=== PATIENT | female | born 1945 | race Caucasian/White ===

== ENCOUNTER → 2016-04-27 | Outpatient (CLI) | payer MEDICARE, BC ==
[~2016-04-27] MED LIST: ALBU17IN2 INH; AMLO25TA PO; ATOR40TA PO; BACT2OIN2 TOP; BENA25TA4 PO; BISO5TAB5 PO; CLIN1CAP5 PO; COMBAER6 INH; CYCL10TA PO; FLON0.054; GLIP10TA13 PO; LANS30CA PO; LEVO25TA5 PO; LOSA50TA20 PO; MELA0.02 PO; META28.35 PO; METF500T PO; MIRA3350 PO; MORP-38 PO; POLY33502 PO; PRAN0.5T3 PO; TYLE325T5 PO; VENL75TA3 PO; VITA1CAP25 PO; XARE20TA PO; ZOLP12.515 PO
[2016-04-27 17:58] LABS: BLOOD UREA NITROGEN 22 MG/DL (7-18); CREATININE FOR GFR 0.89 MG/DL (0.55-1.02); GLOMERULAR FILTRATION RATE > 60.0 (>39)
== END ==
LOC: M LAB 15:56
PROVIDERS: ATTEND Ophthalmology
DX: H53.453 Other localized visual field defect, bilateral (principal); Z79.899 Other long term (current) drug therapy

== ENCOUNTER → 2016-04-27 | Outpatient (REF) | payer MEDICARE, BC | LOC: M LAB REF 20:06 | PROVIDERS: ATTEND Physician Assistant | DX: N39.0 Urinary tract infection, site not specified (principal) ==

== ENCOUNTER → 2016-05-01 | Outpatient (CLI) | payer MEDICARE, BC ==
--- NOTE | 2016-05-01 19:41 | REP ---
MRI BRAIN WITHOUT AND WITH CONTRAST: 05/01/2016: Comparison: 12/10/2008. Technique: Axial T1, T2, FLAIR, gradient echo, diffusion-weighted images and ADC mapping sequences with sagittal T1 sequence and following administration 13 mL as of ProHance, axial and coronal T1 sequences were then repeated. Findings: Ventricles are midline, symmetric, and without abnormal dilatation. There is no displacement. There are a few dilated perivascular spaces in the basal ganglia on both sides, unchanged. I see no intracranial hemorrhage. There are subcortical, periventricular, and a few scattered deep central white matter hyperintense T2 and FLAIR foci bilaterally . In general these have slightly increased in number and a few are 1 mm or so larger compared to the previous study. Largest is in the right temporal lobe near the temporoparietal junction on the left and it is about 4.6 mm. It was not present on the previous study. I do not see a vascular territory infarct nor is there evidence of acute ischemia on the diffusion weighted images and ADC mapping sequences. No intra or extra-axial hemorrhage, edema or mass. Corpus callosum and optic chiasm are unchanged. Pituitary shows a partially empty sella. All of this is stable. There is no cerebellar tonsillar ectopia. The cerebellum is without significant atrophy. The brainstem shows only a couple of punctate hyperintense foci in the right cerebral peduncle, but was otherwise unremarkable. Basal cisterns are intact. Seventh/eighth cranial nerve complexes were unremarkable. Some scattered patchy right mastoid air space opacities. These do not enhance. There is minor mucosal thickening and right maxillary antrum. Middle turbinate show prominent contra bullosa bilaterally right greater than left. Globes and intraorbital contents symmetric and grossly intact. After contrast administration, I see no vascular territory infarct, enhancing mass, vascular lesion, gyriform enhancement, abnormal meningeal enhancement nor any other acute abnormality. IMPRESSION: 1. Some white matter changes suggestive of small-vessel ischemic disease. Clips, a few are larger couple are new compared to the previous study and 2008. 2. No intracranial hemorrhage, acute or chronic and no acute infarct, mass or edema. 3. There is no significant atrophy or ventriculomegaly. Brainstem, posterior fossa and the sinuses were grossly intact except for some minor mucosal thickening on the right maxillary antrum superior medially. 4. Some minor mastoid opacification on the right. Signed by Cullen Hernandez MD 05/01/2016 07:47 P
== END ==
LOC: M RAD 17:41
PROVIDERS: ATTEND Ophthalmology
DX: R90.82 White matter disease, unspecified (principal)
CPT/HCPCS: 70553; A9576

== ENCOUNTER → 2016-06-06 | Outpatient (REF) | payer MEDICARE, BC | LOC: M LAB REF 12:09 | PROVIDERS: ATTEND Physician Assistant Medical | DX: N30.01 Acute cystitis with hematuria (principal) ==

== ENCOUNTER → 2016-07-12 | Outpatient (CLI) | payer MEDICARE, BC ==
[~2016-07-12] VITALS: Ht 162.6 cm; Wt 68.0 kg
[~2016-07-12] MED LIST changes: +CEFT500T3 PO; +LIDOCAINE 2% INJ 100 MG/5 ML SDV (FOR ANES.) As Ordered ONE; +NS 1,000 ML IV SCH; +PERC10TA17 PO; +PROPOFOL 200 MG/20 ML VIAL As Ordered ONE
--- NOTE | 2016-07-12 11:43 | ROOR ---
Patient Name: Flori Marie Procedure Date: 07/12/2016 11:30 AM Date of : 1945 Age: 71 Room: [facility] Gender: Female Note Status: Finalized Procedure: Upper GI endoscopy + Biopsies Indications: Iron deficiency anemia Providers: Eddy Monahan MD Referring MD: Valdez Stephens MD Requesting Provider: Medicines: Monitored Anesthesia Care Complications: No immediate complications. Procedure: Pre-Anesthesia Assessment: - The heart rate, respiratory rate, oxygen saturations, blood pressure, adequacy of pulmonary ventilation, and response to care were monitored throughout the procedure. The Endoscope was introduced through the mouth, and advanced to the second part of duodenum. The upper GI endoscopy was accomplished without difficulty. The patient tolerated the procedure well. Findings: The Z-line was regular and was found 40 cm from the incisors. A small hiatal hernia was present. Diffuse mildly erythematous mucosa without bleeding was found in the stomach. Biopsies were taken with a cold forceps for Helicobacter pylori testing. The exam of the duodenum was otherwise normal. Impression: - Z-line regular, 40 cm from the incisors. - Small hiatal hernia. - Erythematous mucosa in the stomach. Biopsied. - The examination was otherwise normal. Recommendation: - Patient has a contact number available for emergencies. The signs and symptoms of potential delayed complications were discussed with the patient. Return to normal activities tomorrow. Written discharge instructions were provided to the patient. - High fiber diet. - Discharge patient to home. - Continue present medications. - Await pathology results. - Check Portal Online for Path Results.([email or web address]) - Return to referring physician. - The findings and recommendations were discussed with the patient's family. Eddy Monahan MD Eddy Monahan MD 07/12/2016 11:43:07 AM This report has been signed electronically. Number of Addenda: 0 Note Initiated On: 07/12/2016 11:30 AM Estimated Blood Loss: Estimated blood loss: none.
--- NOTE | 2016-07-12 12:11 | ROOR ---
Patient Name: Flori Marie Procedure Date: 07/12/2016 11:31 AM Date of : 1945 Age: 71 Room: [facility] Gender: Female Note Status: Finalized Procedure: Colonoscopy to Cecum + Cold Snare Polypectomy + Hemoclips Indications: High risk colon cancer surveillance: Personal history of colonic polyps, Last colonoscopy: 2012 Providers: Eddy Monahan MD Referring MD: Valdez Stephens MD Requesting Provider: Medicines: Monitored Anesthesia Care Complications: No immediate complications. Procedure: Pre-Anesthesia Assessment: - The heart rate, respiratory rate, oxygen saturations, blood pressure, adequacy of pulmonary ventilation, and response to care were monitored throughout the procedure. The Colonoscope was introduced through the anus and advanced to the cecum, identified by appendiceal orifice and ileocecal valve. The colonoscopy was performed without difficulty. The patient tolerated the procedure well. The quality of the bowel preparation was good. Findings: The perianal and digital rectal examinations were normal. Non-bleeding internal hemorrhoids were found during retroflexion. The hemorrhoids were small and Grade I (internal hemorrhoids that do not prolapse). Multiple small and large-mouthed diverticula were found in the recto-sigmoid colon, sigmoid colon and descending colon. A medium polyp was found at 45 cm proximal to the anus. The polyp was sessile. The polyp was removed with a cold snare. Resection and retrieval were complete. To prevent bleeding after the polypectomy, two hemostatic clips were successfully placed (MR conditional). There was no bleeding at the end of the procedure. A medium polyp was found in the proximal transverse colon. The polyp was sessile. The polyp was removed with a cold snare. Resection and retrieval were complete. To prevent bleeding after the polypectomy, one hemostatic clip was successfully placed (MR conditional). There was no bleeding at the end of the procedure. The exam was otherwise without abnormality on direct and retroflexion views. Impression: - Non-bleeding internal hemorrhoids. - Diverticulosis in the recto-sigmoid colon, in the sigmoid colon and in the descending colon. - One medium polyp at 45 cm proximal to the anus, removed with a cold snare. Resected and retrieved. Clips (MR conditional) were placed. - One medium polyp in the proximal transverse colon, removed with a cold snare. Resected and retrieved. Clip (MR conditional) was placed. - The examination was otherwise normal on direct and retroflexion views. - The exam was otherwise normal to the cecum. Recommendation: - Patient has a contact number available for emergencies. The signs and symptoms of potential delayed complications were discussed with the patient. Return to normal activities tomorrow. Written discharge instructions were provided to the patient. - High fiber diet. - Discharge patient to home. - Resume Xarelto (rivaroxaban) at prior dose today. - Await pathology results. - Repeat colonoscopy in 5 years for surveillance based on pathology results. - Return to referring physician. - The findings and recommendations were discussed with the patient's family. - Check Portal Online for Path Results.([email or web address]) Eddy Monahan MD Eddy Monahan MD 07/12/2016 12:11:06 PM This report has been signed electronically. Number of Addenda: 0 Note Initiated On: 07/12/2016 11:31 AM Estimated Blood Loss: Estimated blood loss: none.
[2016-07-12 12:30] VITALS: BP 131/92
== END | disposition home or self-care (01) ==
LOC: M OPP 10:23
PROVIDERS: ATTEND Internal Medicine Gastroenterology
DX: Z12.11 Encounter for screening for malignant neoplasm of colon (principal); K64.0 First degree hemorrhoids; K57.30 Diverticulosis of large intestine without perforation or abscess without bleeding; D12.5 Benign neoplasm of sigmoid colon; D12.3 Benign neoplasm of transverse colon; D50.9 Iron deficiency anemia, unspecified; K44.9 Diaphragmatic hernia without obstruction or gangrene; I42.9 Cardiomyopathy, unspecified; E11.9 Type 2 diabetes mellitus without complications; I47.1 Supraventricular tachycardia; I77.9 Disorder of arteries and arterioles, unspecified; I44.7 Left bundle-branch block, unspecified; I48.91 Unspecified atrial fibrillation; I10 Essential (primary) hypertension; E78.00 Pure hypercholesterolemia, unspecified; E03.9 Hypothyroidism, unspecified; K21.9 Gastro-esophageal reflux disease without esophagitis; F33.9 Major depressive disorder, recurrent, unspecified; F41.9 Anxiety disorder, unspecified; J44.9 Chronic obstructive pulmonary disease, unspecified; F17.210 Nicotine dependence, cigarettes, uncomplicated; Z79.891 Long term (current) use of opiate analgesic; Z79.899 Other long term (current) drug therapy; Z79.84 Long term (current) use of oral hypoglycemic drugs; Z79.01 Long term (current) use of anticoagulants; Z88.8 Allergy status to other drugs, medicaments and biological substances; Z88.1 Allergy status to other antibiotic agents; Z91.018 Allergy to other foods

== ENCOUNTER 2016-07-27 14:38 | Emergency (ER) | payer MEDICARE, BC ==
[~2016-07-27] VITALS: Ht 162.6 cm; Wt 67.1 kg
[~2016-07-27 14:38] MED LIST changes: -LIDOCAINE 2% INJ 100 MG/5 ML SDV (FOR ANES.) As Ordered ONE; -NS 1,000 ML IV SCH; -PROPOFOL 200 MG/20 ML VIAL As Ordered ONE
[2016-07-27] MEDS ORDERED: REGL5TAB2 PO (15:13)
[2016-07-27] MEDS ORDERED: [UNRECOGNIZED DRUG - CODE] PO (15:13)
[2016-07-27] MEDS ORDERED: ALBU17IN INH (15:13)
[2016-07-27] MEDS ORDERED: LOSA50TA20 PO (15:13)
[2016-07-27] MEDS: NS 1,000 ML IV SCH (15:13)
[2016-07-27] MEDS ORDERED: VITA1TAB27 PO (15:13)
[2016-07-27] MEDS ORDERED: FERR325T3 PO (15:13)
[2016-07-27] MEDS ORDERED: BENT10CA PO (15:56)
[2016-07-27 15:57] LABS: MEAN CORPUSCULAR VOLUME 94.1 fl (80.0-96.0); PLATELET COUNT, AUTOMATED 239 k/mm3 (150-450); RED CELL DISTRIBUTION WIDTH 12.4 % (11.5-14.5); WHITE BLOOD COUNT 22.1 K/mm3 (4.0-10.0)
[2016-07-27 16:01] LABS: ALBUMIN 4.3 GM/DL (3.2-5.2); ALBUMIN/GLOBULIN RATIO 1.19 (1.00-1.93); BILIRUBIN,DIRECT 0.1 MG/DL (0.0-0.2); BILIRUBIN,TOTAL 0.4 MG/DL (0.2-1.0); CALCIUM LEVEL 9.2 MG/DL (8.8-10.2); CREATININE FOR GFR 1.19 MG/DL (0.55-1.02); GLOMERULAR FILTRATION RATE 47.7 (>39); POTASSIUM SERUM 4.1 MEQ/L (3.5-5.1); TOTAL PROTEIN 7.9 GM/DL (6.4-8.2)
[2016-07-27] MEDS: ONDANSETRON 4MG/2ML VIAL (J2405) IV ONE (16:06)
[2016-07-27] MEDS: MORPHINE 4 MG/ML 1ML SYRINGE IV PRN (16:07)
[2016-07-27] MEDS ORDERED: ISOVUE-370 76% 100ML VIAL (Q9967) As Ordered ONE (16:17)
[2016-07-27 16:20] LABS: PLATELET CLUMPS SMALL AMT
[2016-07-27 17:12] VITALS: BP 143/60
[2016-07-27] MEDS ORDERED: MORP-38 PO ×2 (17:21)
[2016-07-27] MEDS ORDERED: FLON1SPR (17:21)
[2016-07-27] MEDS ORDERED: VENL75CA PO (17:21)
[2016-07-27] MEDS ORDERED: LEVO50TA45 PO (17:21)
[2016-07-27] MEDS ORDERED: REPA1TAB PO (17:21)
[2016-07-27] MEDS ORDERED: IPRASOL4 INH (17:21)
[2016-07-27] MEDS ORDERED: FIBEPOW PO (17:21)
[2016-07-27] MEDS: cefTRIAXone SOD 2 GM in D5W MINI-BAG PLUS 50 ML IV ONE (17:36)
--- NOTE | 2016-07-27 21:58 | REP ---
ABDOMEN: HISTORY: Abdominal pain. COMPARISON: Chest 05/13/2015 FINDINGS: Supine and upright views of the abdomen show the intestinal gas pattern to be nonspecific. Gas and stool is seen throughout the colon within the rectosigmoid region. The organ silhouettes insofar as delineated appear unremarkable. No abdominal calcific densities are seen within the abdomen or pelvis. The accompanying single frontal view of the chest shows no free subdiaphragmatic air, cardiomegaly, infiltrates or effusions. IMPRESSION: Nonspecific intestinal gas pattern. Signed by Rolando Ruiz DO 07/28/2016 11:20 A
--- NOTE | 2016-07-27 23:23 | REP ---
CT ABDOMEN: HISTORY: Left lower quadrant pain, assess for diverticulitis. COMPARISON: 03/10/2015 CONTRAST: 100 mL [id number] There is no significant change in the appearance of the lung bases. There are no pleural or pericardial effusions. The patient is status post cholecystectomy. The liver, spleen, pancreas, adrenal glands and kidneys are unchanged, remaining within normal limits. The abdominal aorta and periaortic regions are unchanged, remaining within normal limits. The bowel loops and their mesenteries are within normal limits. The colon is content filled. There is no free fluid or free air in the abdomen. CT pelvis: The bowel loops and their mesenteries are within normal limits. There is sigmoid colon diverticulosis. There are a few scattered diverticula in the descending colon, all status quo. There is no free pelvic fluid or air. There is no pelvic mass or adenopathy. Bone window technique throughout the exam shows chronic spinal degenerative changes, status quo. Degenerative sacroiliac joint changes are also noted, status quo. IMPRESSION: No evidence of acute intraabdominal or intrapelvic disease and no significant change from the prior exam with findings as described above. Signed by Rolando Ruiz DO 07/28/2016 11:20 A
== END 2016-07-27 18:24 | disposition home or self-care (01) ==
LOC: EDBD 14:38 → M ED 16:54
DX: D72.829 Elevated white blood cell count, unspecified (principal); R11.10 Vomiting, unspecified; R07.9 Chest pain, unspecified; E11.9 Type 2 diabetes mellitus without complications; I10 Essential (primary) hypertension; K58.9 Irritable bowel syndrome, unspecified; K21.9 Gastro-esophageal reflux disease without esophagitis; I48.91 Unspecified atrial fibrillation; K31.84 Gastroparesis; Z79.899 Other long term (current) drug therapy; Z79.01 Long term (current) use of anticoagulants; F17.200 Nicotine dependence, unspecified, uncomplicated; Z88.8 Allergy status to other drugs, medicaments and biological substances; Z88.1 Allergy status to other antibiotic agents; Z88.3 Allergy status to other anti-infective agents; Z91.09 Other allergy status, other than to drugs and biological substances; Z79.891 Long term (current) use of opiate analgesic
CPT/HCPCS: 74022; 74177; 80048; 80076; 81001; 83605; 83690; 85025; 87040; 87088; 87186; 93041; 96374; 96375; 99284; J0696; J2405; Q9967

== ENCOUNTER 2016-07-28 06:20 | Emergency (ER) | payer MEDICARE, BC ==
[~2016-07-28] VITALS: Ht 162.6 cm; Wt 67.1 kg
[~2016-07-28 06:20] MED LIST changes: +ALBU17IN INH; +BENT10CA PO; +FERR325T3 PO; +FIBEPOW PO; +FLON1SPR; +IPRASOL4 INH; +LEVO50TA45 PO; +REGL5TAB2 PO; +REPA1TAB PO; +VENL75CA PO; +VITA1TAB27 PO; +[UNRECOGNIZED DRUG - CODE] PO
[2016-07-28] MEDS: NS 1,000 ML IV ONE (07:30)
[2016-07-28 07:46] LABS: BASO % 0.3 % (0.0-1.0); EOS # 0.2 K/mm3 (0.0-0.50); EOS % 1.7 % (0.0-3.0); LARGE UNSTAINED CELL # 0.1 K/mm3 (0.0-0.4); LARGE UNSTAINED CELL % 0.9 % (0.0-4.0); LYMPH # 1.7 K/mm3 (1.5-4.5); LYMPH % 15.1 % (24.0-44.0); MEAN CORPUSCULAR HEMOGLOBIN 31.8 pg (27.0-33.0); MEAN CORPUSCULAR HGB CONC 33.7 g/dl (32.0-36.5); MEAN CORPUSCULAR VOLUME 94.5 fl (80.0-96.0); MONO # 0.9 K/mm3 (0.0-0.8); MONO % 7.8 % (0.0-5.0); NEUTROPHILS # 8.4 K/mm3 (1.8-7.7); NEUTROPHILS % 74.2 % (36.0-66.0); PLATELET COUNT, AUTOMATED 218 k/mm3 (150-450); RED CELL DISTRIBUTION WIDTH 12.4 % (11.5-14.5); WHITE BLOOD COUNT 11.3 K/mm3 (4.0-10.0)
[2016-07-28 08:04] LABS: ALBUMIN 3.1 GM/DL (3.2-5.2); ALBUMIN/GLOBULIN RATIO 0.86 (1.00-1.93); BILIRUBIN,DIRECT 0.1 MG/DL (0.0-0.2); BILIRUBIN,TOTAL 0.4 MG/DL (0.2-1.0); CALCIUM LEVEL 7.9 MG/DL (8.8-10.2); CREATININE FOR GFR 1.03 MG/DL (0.55-1.02); GLOMERULAR FILTRATION RATE 56.4 (>39); TOTAL PROTEIN 6.7 GM/DL (6.4-8.2)
[2016-07-28 08:46] VITALS: BP 159/59
== END 2016-07-28 08:47 | disposition home or self-care (01) ==
LOC: M ED 07:46
DX: E86.0 Dehydration (principal); R10.12 Left upper quadrant pain; R11.0 Nausea; I10 Essential (primary) hypertension; E11.9 Type 2 diabetes mellitus without complications; K21.9 Gastro-esophageal reflux disease without esophagitis; K57.92 Diverticulitis of intestine, part unspecified, without perforation or abscess without bleeding; E07.9 Disorder of thyroid, unspecified; M54.5 Low back pain; K31.84 Gastroparesis; I48.91 Unspecified atrial fibrillation; I44.7 Left bundle-branch block, unspecified; K44.9 Diaphragmatic hernia without obstruction or gangrene; F17.210 Nicotine dependence, cigarettes, uncomplicated; Z79.899 Other long term (current) drug therapy; Z79.01 Long term (current) use of anticoagulants; Z79.891 Long term (current) use of opiate analgesic; Z79.84 Long term (current) use of oral hypoglycemic drugs; Z88.8 Allergy status to other drugs, medicaments and biological substances; Z88.1 Allergy status to other antibiotic agents; Z88.3 Allergy status to other anti-infective agents; Z91.09 Other allergy status, other than to drugs and biological substances

== ENCOUNTER → 2016-08-15 | Outpatient (REF) | payer MEDICARE, BC | LOC: M SMT 16:59 | PROVIDERS: ATTEND Nurse Practitioner Family | DX: N39.0 Urinary tract infection, site not specified (principal) | CPT/HCPCS: 51798; 81001; 87086; G0463 ==

== ENCOUNTER → 2016-08-24 | Outpatient (CLI) | payer MEDICARE, BC ==
--- NOTE | 2016-08-24 13:39 | REP ---
Clinical: Shortness of breath . Comparison: 07/27/2016 . Technique: PA and lateral. Findings: The mediastinum and cardiac silhouette are normal. The lung montgomery are clear and without acute consolidation, effusion, or pneumothorax. The skeletal structures are intact and normal. Impression: 1. No acute cardiopulmonary process. Signed by Jovon Sanchez MD 08/24/2016 01:31 P
== END ==
LOC: M SMT 13:03
PROVIDERS: ATTEND Internal Medicine Pulmonary Disease
DX: R06.02 Shortness of breath (principal)

== ENCOUNTER → 2016-09-12 | Outpatient (CLI) | payer MEDICARE, BC ==
--- NOTE | 2016-09-12 16:00 | REP ---
PELVIC ULTRASOUND: Real-time sonographic evaluation of the pelvis was performed utilizing transabdominal and endovaginal technique. The bladder measures 3.8 x 3.9 x 6.4 cm. The patient has had a prior hysterectomy. The ovaries are not visualized. No adnexal mass is seen. No free fluid is seen. IMPRESSION: Essentially negative pelvic ultrasound. Status post hysterectomy. The ovaries could not be identified. I see no mass or free fluid.
== END ==
LOC: M WHC 12:56
PROVIDERS: ATTEND Nurse Practitioner Women's Health
DX: R14.0 Abdominal distension (gaseous) (principal)

== ENCOUNTER → 2017-03-20 | Outpatient (CLI) | payer MEDICARE, BC ==
[~2017-03-20] MED LIST changes: -ATOR40TA PO; +ATOR40TA75 PO; +BACT2OIN10 TOP; -BACT2OIN2 TOP; +CLIN150C14 PO; -CLIN1CAP5 PO; -GLIP10TA13 PO; +GLIP1TAB51 PO; -MELA0.02 PO; +MELA3TAB49 PO; -METF500T PO; +METF500T13 PO; -PERC10TA17 PO; +PERC10TA26 PO; -VENL75CA PO; +VENL75CA2 PO
--- NOTE | 2017-03-21 17:07 | REP ---
CHEST PA AND LATERAL: 03/20/2017: Clinical history: COPD with exacerbation. Comparison: 08/24/2016, PA chest 07/27/2016, 05/13/2015. Findings. Lungs are well inflated. There is underlying interstitial fibrosis diffusely. Heavier markings in the bases may reflect some superimposed patchy atelectasis or infiltrate on the fibrosis. There is no dense consolidation with air bronchograms. There is no pleural effusion. I see no vascular redistribution or pulmonary edema. The heart is mildly enlarged with left atrial and ventricular enlargement. Pulmonary arteries are prominent centrally consistent with pulmonary artery hypertension. Vascular calcifications at the aortic arch without aneurysm. Airway midline. Bony thorax shows demineralization without acute compression deformity. Impression: 1. COPD and fibrotic changes with heavier basilar fibrosis and superimposed patchy atelectasis or infiltrates suggested. No effusion, dense consolidation with air bronchograms or parenchymal mass/nodule evident. 2. Mild cardiomegaly with left atrial ventricular enlargement. No pulmonary edema or effusion. 3. Calcified aortic arch without aneurysm. Signed by Cullen Hernandez MD 03/21/2017 05:28 P
== END ==
LOC: M ADAMS 18:37
PROVIDERS: ATTEND Physician Assistant Medical
DX: J44.1 Chronic obstructive pulmonary disease with (acute) exacerbation (principal); I51.7 Cardiomegaly

== ENCOUNTER 2017-08-16 15:25 | Emergency (ER) | payer MEDICARE, BC ==
[2017-08-16] MEDS: PERCOCET 5MG/325MG TAB PO (17:56)
== END 2017-08-16 18:02 | disposition home or self-care (01) ==
LOC: M ED 15:25
DX: S29.011A Strain of muscle and tendon of front wall of thorax, initial encounter (principal); X50.9XXA Other and unspecified overexertion or strenuous movements or postures, initial encounter; Y92.410 Unspecified street and highway as the place of occurrence of the external cause; I10 Essential (primary) hypertension; J44.1 Chronic obstructive pulmonary disease with (acute) exacerbation; E03.9 Hypothyroidism, unspecified; K21.9 Gastro-esophageal reflux disease without esophagitis; I48.91 Unspecified atrial fibrillation; E78.00 Pure hypercholesterolemia, unspecified; F17.210 Nicotine dependence, cigarettes, uncomplicated
CPT/HCPCS: 71100

== ENCOUNTER → 2017-08-16 | Outpatient (CLI) | payer MEDICARE, BC | LOC: M ADAMS 13:41 | DX: I51.7 Cardiomegaly (principal); J44.1 Chronic obstructive pulmonary disease with (acute) exacerbation; J98.4 Other disorders of lung; R07.1 Chest pain on breathing ==

== ENCOUNTER 2017-09-02 12:21 | Emergency (ER) | payer MEDICARE, BC ==
[2017-09-02 13:10] LABS: BASO # 0.1 10^3/uL (0.0-0.2); BASO % 1.1 % (0.0-1.0); EOS # 0.1 10^3/uL (0.0-0.50); EOS % 1.7 % (0.0-3.0); HEMATOCRIT 45.6 % (36.0-47.0); HEMOGLOBIN 15.1 g/dl (12.0-15.5); IMMATURE GRANULOCYTE % 0.2 % (0-3.0); LYMPH % 24.2 % (24.0-44.0); MEAN CORPUSCULAR HEMOGLOBIN 30.2 pg (27.0-33.0); MEAN CORPUSCULAR HGB CONC 33.1 g/dl (32.0-36.5); MEAN CORPUSCULAR VOLUME 91.2 fl (80.0-96.0); MONO # 0.8 10^3/uL (0.0-0.8); MONO % 9.9 % (0.0-5.0); NEUTROPHILS # 5.2 10^3/uL (1.8-7.7); NEUTROPHILS % 62.9 % (36.0-66.0); PLATELET COUNT, AUTOMATED 201 10^3/uL (150-450); RED CELL DISTRIBUTION WIDTH 13.2 % (11.5-14.5); WHITE BLOOD COUNT 8.3 10^3/uL (4.0-10.0)
[2017-09-02 13:14] LABS: PROTHROMBIN TIME 14.4 SECONDS (12.4-14.5)
[2017-09-02 13:15] LABS: PARTIAL THROMBOPLASTIN TIME 28.3 SECONDS (26.8-37.9)
[2017-09-02 13:23] LABS: ANION GAP 5 MEQ/L (8-16); BLOOD UREA NITROGEN 20 MG/DL (7-18); CALCIUM LEVEL 8.5 MG/DL (8.8-10.2); CARBON DIOXIDE LEVEL 31 MEQ/L (21-32); CHLORIDE LEVEL 101 MEQ/L (98-107); CK-MB VALUE MASS 2.1 NG/ML (<3.6); CPK CREATINE PHOSPHOKINASE 46 U/L (26-192); CREATININE FOR GFR 0.91 MG/DL (0.55-1.30); GLOMERULAR FILTRATION RATE > 60.0 (>39); GLUCOSE, FASTING 146 MG/DL (70-100); MB/CK RELATIVE INDEX 4.56 (< OR =4); POTASSIUM SERUM 4.3 MEQ/L (3.5-5.1); SODIUM LEVEL 137 MEQ/L (136-145); TROPONIN I < 0.02 NG/ML (< 0.10)
[2017-09-02] MEDS ORDERED: ISOVUE-370 76% 100ML VIAL (Q9967) As Ordered (13:24)
[2017-09-02] MEDS: MORPHINE 4 MG/ML 1ML VIAL/SYRINGE (J2270) IV (13:30)
== END 2017-09-02 15:46 | disposition home or self-care (01) ==
LOC: M ED 12:21
DX: R07.89 Other chest pain (principal); I44.0 Atrioventricular block, first degree; I44.7 Left bundle-branch block, unspecified; J44.1 Chronic obstructive pulmonary disease with (acute) exacerbation; I48.91 Unspecified atrial fibrillation; E11.9 Type 2 diabetes mellitus without complications; I11.0 Hypertensive heart disease with heart failure; E78.5 Hyperlipidemia, unspecified; K21.9 Gastro-esophageal reflux disease without esophagitis; M79.7 Fibromyalgia; M19.90 Unspecified osteoarthritis, unspecified site; Z87.19 Personal history of other diseases of the digestive system; N64.9 Disorder of breast, unspecified; F17.200 Nicotine dependence, unspecified, uncomplicated; Z98.890 Other specified postprocedural states; Z88.8 Allergy status to other drugs, medicaments and biological substances; Z88.5 Allergy status to narcotic agent; Z88.3 Allergy status to other anti-infective agents; Z91.018 Allergy to other foods; Z79.899 Other long term (current) drug therapy; Z79.890 Hormone replacement therapy
CPT/HCPCS: J2270

== ENCOUNTER → 2017-09-02 | Outpatient (CLI) | payer MEDICARE, BC | LOC: M ADAMS 10:31 | DX: R07.9 Chest pain, unspecified (principal); J44.1 Chronic obstructive pulmonary disease with (acute) exacerbation ==

== ENCOUNTER → 2017-10-27 | Outpatient (CLI) | payer MEDICARE, BC ==
[2017-10-27 13:02] LABS: BASO # 0.1 10^3/uL (0.0-0.2); BASO % 0.6 % (0.0-1.0); EOS # 0.2 10^3/uL (0.0-0.50); EOS % 1.7 % (0.0-3.0); HEMATOCRIT 42.3 % (36.0-47.0); IMMATURE GRANULOCYTE % 0.2 % (0-3.0); LYMPH # 1.8 10^3/uL (1.5-4.5); LYMPH % 20.5 % (24.0-44.0); MEAN CORPUSCULAR HEMOGLOBIN 31.5 pg (27.0-33.0); MEAN CORPUSCULAR HGB CONC 33.1 g/dl (32.0-36.5); MEAN CORPUSCULAR VOLUME 95.3 fl (80.0-96.0); MONO # 0.9 10^3/uL (0.0-0.8); MONO % 10.1 % (0.0-5.0); NEUTROPHILS # 5.8 10^3/uL (1.8-7.7); NEUTROPHILS % 66.9 % (36.0-66.0); PLATELET COUNT, AUTOMATED 196 10^3/uL (150-450); RED BLOOD COUNT 4.44 10^6/uL (4.00-5.40); RED CELL DISTRIBUTION WIDTH 12.9 % (11.5-14.5); WHITE BLOOD COUNT 8.7 10^3/uL (4.0-10.0)
[2017-10-27 13:14] LABS: ALBUMIN 3.3 GM/DL (3.2-5.2); ALKALINE PHOSPHATASE 102 U/L (45-117); ALT/SGPT 29 U/L (12-78); AMYLASE 23 U/L (25-115); ANION GAP 6 MEQ/L (8-16); AST/SGOT 10 U/L (7-37); BILIRUBIN,TOTAL 0.3 MG/DL (0.2-1.0); BLOOD UREA NITROGEN 18 MG/DL (7-18); CARBON DIOXIDE LEVEL 32 MEQ/L (21-32); CHLORIDE LEVEL 104 MEQ/L (98-107); CREATININE FOR GFR 0.83 MG/DL (0.55-1.30); GLOMERULAR FILTRATION RATE > 60.0 (>39); GLUCOSE, FASTING 132 MG/DL (70-100); LIPASE 123 U/L (73-393); SODIUM LEVEL 142 MEQ/L (136-145); TOTAL PROTEIN 6.6 GM/DL (6.4-8.2)
[2017-10-27 13:15] LABS: POTASSIUM SERUM 5.2 MEQ/L (3.5-5.1)
== END ==
LOC: M ADAMS 11:04
DX: R10.30 Lower abdominal pain, unspecified (principal)
CPT/HCPCS: 82150

== ENCOUNTER 2018-01-25 09:15 | Emergency (ER) | payer MEDICARE, BC ==
[2018-01-25 09:59] LABS: BASO # 0.1 10^3/uL (0.0-0.2); BASO % 0.6 % (0.0-1.0); EOS # 0.2 10^3/uL (0.0-0.50); EOS % 2.1 % (0.0-3.0); HEMATOCRIT 44.9 % (36.0-47.0); HEMOGLOBIN 15.3 g/dl (12.0-15.5); IMMATURE GRANULOCYTE % 0.2 % (0-3.0); LYMPH # 1.5 10^3/uL (1.5-4.5); LYMPH % 18.2 % (24.0-44.0); MEAN CORPUSCULAR HEMOGLOBIN 30.7 pg (27.0-33.0); MEAN CORPUSCULAR HGB CONC 34.1 g/dl (32.0-36.5); MEAN CORPUSCULAR VOLUME 90.2 fl (80.0-96.0); MONO # 0.8 10^3/uL (0.0-0.8); MONO % 9.6 % (0.0-5.0); NEUTROPHILS # 5.6 10^3/uL (1.8-7.7); NEUTROPHILS % 69.3 % (36.0-66.0); PLATELET COUNT, AUTOMATED 188 10^3/uL (150-450); RED BLOOD COUNT 4.98 10^6/uL (4.00-5.40); RED CELL DISTRIBUTION WIDTH 12.3 % (11.5-14.5); WHITE BLOOD COUNT 8.1 10^3/uL (4.0-10.0)
[2018-01-25] MEDS: ALPRAZolam 0.25 MG TAB PO (10:21)
[2018-01-25] MEDS: LOSARTAN 50 MG TAB PO (10:45)
[2018-01-25 11:08] LABS: ANION GAP 7 MEQ/L (8-16); BLOOD UREA NITROGEN 16 MG/DL (7-18); CARBON DIOXIDE LEVEL 30 MEQ/L (21-32); CHLORIDE LEVEL 100 MEQ/L (98-107); CPK CREATINE PHOSPHOKINASE 47 U/L (26-192); CREATININE FOR GFR 0.92 MG/DL (0.55-1.30); FREE T4 1.22 NG/DL (0.76-1.46); GLOMERULAR FILTRATION RATE > 60.0 (>39); GLUCOSE, FASTING 200 MG/DL (70-100); MAGNESIUM LEVEL 1.6 MG/DL (1.8-2.4); MB/CK RELATIVE INDEX 3.83 (< OR =4); POTASSIUM SERUM 4.2 MEQ/L (3.5-5.1); SODIUM LEVEL 137 MEQ/L (136-145); TROPONIN I < 0.02 NG/ML (< 0.10)
[2018-01-25] MEDS: MAG SULF 1GM/100ML (MAG RUN) 1 GM in APPROPRIATE DILUENT 1 EA IV (11:45)
== END 2018-01-25 14:13 | disposition home or self-care (01) ==
LOC: M ED 09:15
DX: E83.42 Hypomagnesemia (principal); E11.9 Type 2 diabetes mellitus without complications; I10 Essential (primary) hypertension; J44.9 Chronic obstructive pulmonary disease, unspecified; I34.0 Nonrheumatic mitral (valve) insufficiency; I36.1 Nonrheumatic tricuspid (valve) insufficiency; F17.200 Nicotine dependence, unspecified, uncomplicated; Z88.8 Allergy status to other drugs, medicaments and biological substances; Z88.1 Allergy status to other antibiotic agents; Z91.048 Other nonmedicinal substance allergy status; Z79.899 Other long term (current) drug therapy; Z79.01 Long term (current) use of anticoagulants; Z79.84 Long term (current) use of oral hypoglycemic drugs
CPT/HCPCS: J3475

== ENCOUNTER → 2018-01-30 | Outpatient (CLI) | payer MEDICARE, BC ==
[~2018-01-30] MED LIST changes: -ALBU17IN INH; -ALBU17IN2 INH; -AMLO25TA PO; -ATOR40TA75 PO; -BACT2OIN10 TOP; -BENA25TA4 PO; -BENT10CA PO; -BISO5TAB5 PO; -CEFT500T3 PO; -CLIN150C14 PO; -COMBAER6 INH; -CYCL10TA PO; -FERR325T3 PO; -FIBEPOW PO; -FLON0.054; -FLON1SPR; -GLIP1TAB51 PO; +GLUCAGON FOR INJ 1 MG VIAL (J1610) As Ordered; -IPRASOL4 INH; +ISOVUE-370 76% 100ML VIAL (Q9967) As Ordered; -LANS30CA PO; -LEVO25TA5 PO; -LEVO50TA45 PO; -LOSA50TA20 PO; -MELA3TAB49 PO; -META28.35 PO; -METF500T13 PO; -MIRA3350 PO; -MORP-38 PO; -PERC10TA26 PO; -POLY33502 PO; -PRAN0.5T3 PO; -REGL5TAB2 PO; -REPA1TAB PO; -TYLE325T5 PO; -VENL75CA2 PO; -VENL75TA3 PO; -VITA1CAP25 PO; -VITA1TAB27 PO; +VoLumen 0.1% SUSPENSION 450ML BOTTLE As Ordered; -XARE20TA PO; -ZOLP12.515 PO; -[UNRECOGNIZED DRUG - CODE] PO
== END ==
LOC: M RAD 11:27
DX: K63.89 Other specified diseases of intestine (principal)
CPT/HCPCS: Q9967

== ENCOUNTER → 2018-07-09 | Outpatient (REF) | payer MEDICARE, BC ==
[~2018-07-09] MED LIST changes: +ALBU17IN INH; +ALBU17IN2 INH; +AMLO25TA PO; +ATOR40TA75 PO; +AVEL1TAB3 PO; +BACT2OIN10 TOP; +BENA25TA4 PO; +BENEPOW7 PO; +BENT10CA PO; +BISO5TAB5 PO; +CEFT500T3 PO; +CLIN150C14 PO; +COMBAER6 INH; +CYCL10TA PO; +FERR325T3 PO; +FIBEPOW PO; +FLOM0.4C39; +FLON0.054; +FLON1SPR; +GLIP10TA18 PO; -GLUCAGON FOR INJ 1 MG VIAL (J1610) As Ordered; +IPRA0.00 INH; -ISOVUE-370 76% 100ML VIAL (Q9967) As Ordered; +LANS30CA PO; +LEVO25TA5 PO; +LEVO50TA45 PO; +LOSA50TA88 PO; +LOSARTAN/HCT PO; +MELA3TAB49 PO; +META28.35 PO; +METF500T13 PO; +METO10TA2 PO; +MIRA3350 PO; +MORP-38 PO; +NICO21PAT TD; +OXYC1TAB23 PO; +PERC10TA26 PO; +PERC5TAB12 PO; +POLY1POW38 PO; +PRAN0.5T3 PO; +RAPA8CAP4; +REGL5TAB2 PO; +REPA1TAB PO; +TYLE325T5 PO; +VENL-65 PO; +VENL75CA2 PO; +VENTAER INH; +VITA1CAP25 PO; +VITA1TAB27 PO; -VoLumen 0.1% SUSPENSION 450ML BOTTLE As Ordered; +XARE20TA PO; +ZOLP12.515 PO; +[UNRECOGNIZED DRUG - CODE] PO
== END ==
LOC: M LAB REF 12:52
PROVIDERS: ATTEND Physician Assistant Medical
DX: R10.30 Lower abdominal pain, unspecified (principal)

== ENCOUNTER 2019-03-19 18:35 | Inpatient (IN) | payer MEDICARE, BC ==
[~2019-03-19] VITALS: Ht 162.6 cm; Wt 60.1 kg
[~2019-03-19 18:35] MED LIST changes: -BISO5TAB5 PO; +BISO5TAB9 PO; -MORP-38 PO; +MORP-69 PO; -REPA1TAB PO; +REPA1TAB3 PO
[2019-03-19 19:12] LABS: VENOUS HCO3 27.8 MEQ/L (23.0-27.0); VENOUS O2 SATURATION 58.1 % (60.0-80.0); VENOUS PARTIAL PRESSURE O2 30.7 mmHg (30.0-50.0); VENOUS PH 7.337 UNITS (7.330-7.430); VENOUS STANDARD HCO3 24.5 MEQ/L; VENOUS TOTAL CO2 29.4 MEQ/L (24.0-28.0)
[2019-03-19 19:18] LABS: BASO # 0.1 10^3/uL (0.0-0.2); BASO % 0.4 % (0.0-1.0); EOS # 0.1 10^3/uL (0.0-0.5); EOS % 0.7 % (0.0-3.0); HEMATOCRIT 39.3 % (36.0-47.0); HEMOGLOBIN 12.2 g/dl (12.0-15.5); LYMPH # 1.4 10^3/uL (1.5-5.0); LYMPH % 9.9 % (24.0-44.0); MEAN CORPUSCULAR HEMOGLOBIN 26.3 pg (27.0-33.0); MEAN CORPUSCULAR VOLUME 84.9 fl (80.0-96.0); MONO # 1.5 10^3/uL (0.0-0.8); MONO % 10.5 % (0.0-5.0); NEUTROPHILS # 10.7 10^3/uL (1.5-8.5); PLATELET COUNT, AUTOMATED 251 10^3/uL (150-450); RED BLOOD COUNT 4.63 10^6/uL (4.00-5.40); WHITE BLOOD COUNT 13.8 10^3/uL (4.0-10.0)
[2019-03-19 19:29] LABS: INR 3.8; PROTHROMBIN TIME 37.5 SECONDS (11.8-14.0)
[2019-03-19] MEDS ORDERED: FUROSEMIDE 100 MG/10 ML VIAL (J1940) IV ONE (19:30)
[2019-03-19] MEDS ORDERED: dexameTHASONE 20 MG/5 ML VIAL (J1100) IV ONE (19:30)
[2019-03-19 19:51] LABS: ALT/SGPT 14 U/L (12-78); BILIRUBIN,DIRECT 0.1 MG/DL (0.0-0.2); BILIRUBIN,TOTAL 0.2 MG/DL (0.2-1.0); BLOOD UREA NITROGEN 13 MG/DL (7-18); CALCIUM LEVEL 8.5 MG/DL (8.8-10.2); CARBON DIOXIDE LEVEL 29 MEQ/L (21-32); CHLORIDE LEVEL 99 MEQ/L (98-107); CK-MB VALUE MASS 1.5 NG/ML (<3.6); CPK CREATINE PHOSPHOKINASE 24 U/L (26-192); CREATININE FOR GFR 0.92 MG/DL (0.55-1.30); GLOMERULAR FILTRATION RATE > 60.0 (>39); GLUCOSE, FASTING 211 MG/DL (70-100); MB/CK RELATIVE INDEX 6.25 (< OR =4); NT-PRO BNP 3436 PG/ML (<125); SODIUM LEVEL 137 MEQ/L (136-145); TOTAL PROTEIN 6.7 GM/DL (6.4-8.2); TROPONIN I < 0.02 NG/ML (< 0.10)
[2019-03-19] MEDS: IPRATROPIUM 0.5MG/ALBUTEROL 2.5MG INH SOL UD 3ML (DUONEB)(J7620) NEB SCH ×3 (19:58→20:37)
--- NOTE | 2019-03-19 20:51 | REP ---
CHEST, SINGLE VIEW: Single view of the chest is performed and compared to prior study of 10/25/2017. There is no acute infiltrate or pulmonary edema. There is mild cardiomegaly. There is mild calcification of the thoracic aorta. Mediastinal silhouette is unchanged. IMPRESSION: Mild cardiomegaly without evidence of acute infiltrate. Electronically Signed by Aguila Shahid MD 03/20/2019 08:48 A
[2019-03-19 21:12] LABS: INFLUENZA A AMPLIFICATION NEGATIVE (NEGATIVE); INFLUENZA B AMPLIFICATION NEGATIVE (NEGATIVE)
[2019-03-19] MEDS ORDERED: FURO20TA2 PO (22:25)
[2019-03-19] MEDS ORDERED: RAPA8CAP4 PO (22:25)
[2019-03-19] MEDS ORDERED: DICY10CA13 PO (22:25)
[2019-03-19] MEDS ORDERED: BENE1POW7 PO (22:25)
[2019-03-19] MEDS ORDERED: LOSA25TA14 PO (22:25)
[2019-03-19] MEDS ORDERED: PROAAER10 INH (22:25)
[2019-03-19] MEDS ORDERED: REPA1TAB4 PO (22:25)
[2019-03-19] MEDS ORDERED: ZOLP5TAB PO (22:25)
[2019-03-19] MEDS ORDERED: RA M10TA PO (22:25)
[2019-03-19] MEDS ORDERED: D3-5CAP PO (22:25)
[2019-03-19] MEDS ORDERED: ALBUTEROL SULFATE 2.5 MG/0.5 ML INH NEB SOLN NEB PRN (23:00)
[2019-03-19] MEDS ORDERED: FLUTICASONE PROP 0.05% NASAL SPRAY 16 GM (FLONASE) PRN (23:15)
[2019-03-19] MEDS ORDERED: GLUCOSE 4 GM CHEW TABLET PO PRN (23:15)
[2019-03-19] MEDS ORDERED: DICYCLOMINE 10 MG CAP PO PRN (23:15)
[2019-03-19] MEDS ORDERED: DEXTROSE 50% 50 ML SYRINGE IV PRN (23:15)
[2019-03-19] MEDS ORDERED: GLUCAGON FOR INJ 1 MG VIAL (J1610) SC PRN (23:15)
--- NOTE | 2019-03-19 23:20 | HPEPDOC ---
General Date of Admission 03/19/19 Date of Service: Mar 19, 2019 Chief Complaint The patient is a 73-year-old female admitted with a reason for visit of SOB. Source: Patient Timing/Duration: Day(s) Severity: Moderate Associated Symptoms: Cough, Shortness of breath History of Present Illness Patient is 73 years old female with past medical history of CHF, hypertension, diabetes type 2, insomnia, anxiety, COPD who is active smoker presented hospital with exertional shortness of breath. Patient complained of increased shortness of breath on exertion for past few days associated with increased cough with i ncreased amount of sputum. Patient stated that his sputum became yellow and then for past few days greenish. Patient denied fever but stated that she has been having sweating. Also patient complains of orthopnea, she needed to increase number of pillows to 3 due to severe shortness of breath. In emergency room patient was found to have on VBG CO2 level 52, pH 7.3, mild leukocytosis, vital signs significant for dyspnea and tachycardia. Chest x-ray showed increased interstitial markings. BNP around 3400. Home Medications Scheduled Atorvastatin Calcium (Atorvastatin Calcium) 40 Mg Tab, 40 MG PO DAILY, (Reported) Bisoprolol Fumarate (Bisoprolol Fumarate) 5 Mg Tab, 2.5 MG PO QHS, (Reported) Cholecalciferol (Vitamin D3) (D3-50) 50,000 Unit Capsule, 50,000 UNIT PO MTHLY, (Reported) 1ST OF THE MONTH Cyclobenzaprine HCl (Cyclobenzaprine HCl) 10 Mg Tab, 10 MG PO BID, (Reported) Furosemide (Furosemide) 20 Mg Tablet, 40 MG PO DAILY, (Reported) Glipizide (Glipizide ER) 10 Mg Tab, 10 MG PO BID, (Reported) Lansoprazole (Lansoprazole) 30 Mg Cap, 30 MG PO DAILY, (Reported) Levothyroxine Sodium (Levoxyl) 50 Mcg Tab, 50 MCG PO DAILY, (Reported) Losartan Potassium (Losartan Potassium) 25 Mg Tablet, 25 MG PO DAILY, (Reported) Melatonin (Melatonin) 3 Mg Tab, 3 MG PO QHS, (Reported) TAKES WITH 10MG FOR 13MG TOTAL Melatonin (Melatonin) 10 Mg Tablet, 10 MG PO QHS, (Reported) TAKES WITH 3MG FOR 13MG TOTAL Metformin HCl (Metformin HCl) 500 Mg Tab, 500 MG PO WM, (Reported) Polyethylene Glycol 3350 (Polyethylene Glycol 3350) 1 Pow Pow, 17 GM PO DAILY, (Reported) MIXES WITH BENEFIBER Repaglinide (Repaglinide) 1 Mg Tablet, 0.5 MG PO WM, (Reported) Rivaroxaban (Xarelto) 20 Mg Tab, 20 MG PO QPM, (Reported) TAKES AT 1700 Venlafaxine HCl (Venlafaxine HCl ER) 75 Mg Cap, 75 MG PO QHS, (Reported) Wheat Dextrin (Benefiber) 152 Gm Powder, 1 TSP PO DAILY, (Reported) MIXES WITH MIRALAX Zolpidem Tartrate (Zolpidem Tartrate) 5 Mg Tablet, 5 MG PO QHS, (Reported) Scheduled PRN Albuterol Sulfate (Proair Hfa) 8.5 Gm Hfa.aer.ad, 2 PUFF INH QID PRN for SHORT NESS OF BREATH, (Reported) Dicyclomine HCl (Dicyclomine HCl) 10 Mg Capsule, 10 MG PO ACHS PRN for CRAMPS, (Reported) Fluticasone Propionate (Flonase Allergy Relief) 50 Mcg/Act Spr, 2 SPRAYS NA DAILY PRN for NASAL CONGESTION, (Reported) Oxycodone HCl/Acetaminophen (Percocet 5-325 mg Tablet) 1 Tab Tab, 1 TAB PO Q6H PRN for PAIN, (Reported) Silodosin (Rapaflo) 8 Mg Capsule, 8 MG PO DAILY PRN for URINARY PROBLEMS, (Reported) Allergies Coded Allergies: amitriptyline (Verified Allergy, Unknown, 03/19/19) amlodipine (Verified Allergy, Unknown, 03/19/19) doxycycline (Verified Allergy, Unknown, 03/19/19) fentanyl (Verified Allergy, Unknown, 03/19/19) gabapentin (Verified Allergy, Unknown, 03/19/19) hydrocortisone (Verified Allergy, Unknown, 03/19/19) lisinopril (Verified Allergy, Unknown, 03/19/19) nabumetone (Verified Allergy, Unknown, 03/19/19) neomycin (Verified Allergy, Unknown, 03/19/19) polymyxin B (Verified Allergy, Unknown, 03/19/19) propoxyphene (Verified Allergy, Unknown, 03/19/19) propylene glycol (Verified Allergy, Unknown, 03/19/19) starch (Verified Allergy, Unknown, 03/19/19) Past Medical History Medical History 1. Chronic neck and low back pain. 2. Type 2 diabetes. 3. Hypertension. 4. Dyslipidemia. 5. Paroxysmal atrial fibrillation. 6. Chronic left bundle branch block. 7. Diverticulosis. Surgical History 1. Cholecystectomy. 2. Partial hysterectomy. 3. Appendectomy. 4. section. Family History Both parents had diabetes Social History * Smoker: current smoker, greater than 1 pack/day Alcohol: Denies Drugs: denies A-FIB/CHADSVASC A-FIB History Current/History of A-Fib/PAF?: Yes Current PO Anticoag Therapy: Yes Review of Systems Constitutional: Reports: Night Sweats Eyes: Denies: Pain, Vision change ENT: Denies: Head Aches Skin: Denies: Rash, Lesions Pulmonary: Reports: Dyspnea, Cough, Other Symptoms (greenish sputum) Cardiovascular: Denies: Chest Pain, Palpitations Gastrointestinal: Denies: Nausea, Vomiting Hematologic: Denies: Bruising Endocrine: Denies: Polyphagia Musculoskeletal: Denies: Neck Pain, Back Pain Neurological: Denies: Weakness, Numbness Psych: Reports: Mood Normal Physical Examination General Exam: Positive: Alert, Cooperative, Mild Distress Eye Exam: Positive: PERRLA ENT Exam: Positive: Atraumatic Neck Exam: Positive: Supple, JVD Chest Exam: Positive: Rhonchi (with the bibasilar crackles); Negative: Clear to auscultation (with) Heart Exam: Positive: Irregular Rhythm Telemetry: Positive: Atrial fibrillation Abdomen Exam: Positive: Normal bowel sounds Extremity Exam: Positive: Clubbing Skin Exam: Positive: Nl turgor and temperature Neuro Exam: Positive: Strength at 5/5 X4 ext, Cranial Nerves 3-12 NL Psych Exam: Positive: Mental status NL Vital Signs Vital Signs Date Time Temp Pulse Resp B/P (MAP) Pulse Ox O2 Delivery O2 Flow Rate FiO2 03/19/19 22:05 116 98 03/19/19 22:00 134/65 (88) 03/19/19 18:38 97.8 18 Room Air Laboratory Data Labs 24H Laboratory Tests 2 03/19/19 18:44: Lactic Acid Level 2.0 03/19/19 19:03: Immature Granulocyte % (Auto) 0.5, Neutrophils (%) (Auto) 78.0H, Lymphocytes (%) (Auto) 9.9L, Monocytes (%) (Auto) 10.5H, Eosinophils (%) (Auto) 0.7, Basophils (%) (Auto) 0.4, Neutrophils # (Auto) 10.7H, Lymphocytes # (Auto) 1.4L, Monocytes # (Auto) 1.5H, Eosinophils # (Auto) 0.1, Basophils # (Auto) 0.1, Nucleated Red Blood Cells % (auto) 0.0, Prothrombin Time 37.5H, Prothromb Time International Ratio 3.80, Blood Gas Bicarbonate Standard 24.5, Venous Blood pH 7.337, Venous Blood Partial Pressure CO2 53.0H, Venous Blood Partial Pressure O2 30.7, Venous Blood Total Carbon Dioxide 29.4H, Venous Blood HCO3 27.8H, Venous Blood Oxygen Saturation 58.1L, Venous Blood Base Excess 1.0, Anion Gap 9, Glomerular Filtration Rate > 60.0, Calcium Level 8.5L, Total Bilirubin 0.2, Direct Bilirubin 0.1, Aspartate Amino Transf (AST/SGOT) 9, Alanine Aminotransferase (ALT/SGPT) 14, Alkaline Phosphatase 108, Total Creatine Kinase 24L, Creatine Kinase MB 1.5, Creatine Kinase MB Relative Index 6.25H, Troponin I < 0.02, JN-Ejo-G-Type Natriuretic Peptide 3436H, Total Protein 6.7, Albumin 3.0L, Albumin/Globulin Ratio 0.81L, Thyroid Stimulating Hormone (TSH) 1.050 03/19/19 20:29: Influenza Type A (RT-PCR) NEGATIVE, Influenza Type B (RT-PCR) NEGATIVE CBC/BMP Laboratory Tests 03/19/19 19:03 Microbiology Microbiology 03/19/19 Blood Culture, Received Pending 03/19/19 Blood Culture, Received Pending 03/19/19 Gram Stain, Received Pending 03/19/19 Sputum Culture, Received Pending Assessment/Plan Patient is 73 years old female with past medical history of CHF, hypertension, diabetes type 2, insomnia, anxiety, COPD who is active smoker presented hospital with exertional shortness of breath. Patient complained of increased shortness of breath on exertion for past few days associated with increased cough with increased amount of sputum. Patient stated that his sputum became yellow and then for past few days greenish. Patient denied fever but stated that she has been having sweating. Also patient complains of orthopnea, she needed to increase number of pillows to 3 due to severe shortness of breath. Problems (1) Acute on chronic respiratory failure with hypercapnia Status: Acute Problem Text: Most likely multifactorial secondary to COPD exacerbation superimposed with acute diastolic CHF Continue treatment and oxygen DuoNeb [id number], Solu-Medrol IV Continue to monitor blood gas (2) Congestive heart disease Status: Acute Problem Text: Acute on chronic diastolic CHF In December 2018 Echo showed: Left ventricular systolic function appeared to be mildly depressed, estimated at 40-50%. Lasix 40 mg IV twice a day I's and O's Cardiac diet (3) COPD exacerbation Status: Acute Problem Text: Patient has increased sputum and cough, she doesn't have fever. Patient is active smoker, smoking up to 2 packs in a day Unlikely patient is septic, chest x-ray negative for acute infiltrate Ceftriaxone IV, azithromycin IV Sputum culture (4) Atrial fibrillation Status: Chronic Problem Text: Continue targeted oral anticoagulation Continue home cardioprotective medications (5) Diabetes mellitus Status: Chronic Problem Text: Diabetes diet Insulin sliding scale Plan / VTE VTE Prophylaxis Ordered?: Yes JOHNATHAN AMEZCUA DO Mar 19, 2019 23:20
[2019-03-19] MEDS ORDERED: PILL CUTTER 1 EACH XX ONE (23:23)
[2019-03-19] MEDS: CYCLOBENZAPRINE 10 MG TAB PO SCH (23:29)
[2019-03-19] MEDS ORDERED: METOPROLOL 5 MG/5 ML VIAL IV PRN (23:30)
[2019-03-19] MEDS: PERCOCET 5MG/325MG TAB PO PRN (23:39)
[2019-03-19] MEDS: cefTRIAXone SOD 1 GM in D5W MINI-BAG PLUS 50 ML IV SCH (23:41)
[2019-03-19] MEDS: bisoproloL fumarate 5 MG TAB PO SCH (23:56)
[2019-03-20] MEDS: VENLAFAXINE **XR** 75MG CAPSULE PO SCH ×2 (00:03→20:55)
[2019-03-20] MEDS: zolPIDEM TARTRATE 5 MG TAB PO SCH ×2 (00:04→20:54)
[2019-03-20] MEDS: HumaLOG INSULIN (NovoLOG) PER UNIT SC SCH ×5 (00:24→21:00)
[2019-03-20] MEDS: AZITHROMYCIN INJ 500 MG, VIAL MATE ADAPTER 1 EACH in D5W 250 ML IV SCH (00:45)
[2019-03-20] MEDS ORDERED: COMBIVENT RESPIMAT 100-20MCG INHALER 4GM INH SCH (02:00)
[2019-03-20] MEDS ORDERED: methylPREDNISolone INJ 125 MG/2 ML VIAL (J2930) IV SCH (04:00)
[2019-03-20] MEDS: LEVOTHYROXINE 50MCG TABLET (0.05MG) PO SCH (04:56)
[2019-03-20] MEDS: BUDESONIDE 0.25 MG/2 ML INHALATION SUSPENSION INH SCH ×2 (08:00→19:31)
[2019-03-20 08:14] LABS: HEMATOCRIT 39.2 % (36.0-47.0); MEAN CORPUSCULAR HEMOGLOBIN 26.2 pg (27.0-33.0); MEAN CORPUSCULAR HGB CONC 30.6 g/dl (32.0-36.5); MEAN CORPUSCULAR VOLUME 85.6 fl (80.0-96.0); PLATELET COUNT, AUTOMATED 274 10^3/uL (150-450); RED BLOOD COUNT 4.58 10^6/uL (4.00-5.40); WHITE BLOOD COUNT 12.4 10^3/uL (4.0-10.0)
[2019-03-20 08:50] LABS: CALCIUM LEVEL 8.4 MG/DL (8.8-10.2); CREATININE FOR GFR 1.22 MG/DL (0.55-1.30); GLOMERULAR FILTRATION RATE 46.1 (>39); MAGNESIUM LEVEL 1.4 MG/DL (1.8-2.4); POTASSIUM SERUM 4.8 MEQ/L (3.5-5.1)
[2019-03-20] MEDS ORDERED: LEVEMIR (INSULIN DETEMIR) 1 UNITS/0.01ML SC SCH (09:00)
[2019-03-20] MEDS ORDERED: FUROSEMIDE 40 MG/4 ML VIAL (J1940) IV SCH (09:00)
[2019-03-20] MEDS: NICOTINE 21MG/24HR 1 EA TRANSDERMAL TD SCH (09:00)
[2019-03-20] MEDS: OMEPRAZOLE 20 MG CAP PO SCH (09:08)
[2019-03-20] MEDS: MIRALAX *UNIT DOSE* 17GM PACKET PO SCH (09:08)
[2019-03-20] MEDS: CYCLOBENZAPRINE 10 MG TAB PO SCH ×2 (09:08→20:54)
[2019-03-20] MEDS: ATORVASTATIN 20 MG TAB PO SCH (09:09)
[2019-03-20] MEDS: LOSARTAN 25 MG TAB PO SCH (09:11)
[2019-03-20] MEDS ORDERED: MAG SULF 1GM/100ML (MAG RUN) 1 GM in IV 1 EA IV ONE (11:00)
[2019-03-20] MEDS: PERCOCET 5MG/325MG TAB PO PRN ×2 (11:30→21:12)
--- NOTE | 2019-03-20 12:26 | IPNPDOC ---
Subjective Date Seen The patient was seen on 03/20/19. Subjective Chief Complaint/HPI Says shortness of breath is a little better. Does not have any ocygen at home. uses albuterol inhaler only at home 1 to 4 times a day as needed. has nebs but does not like to use it. Objective Physical Examination General Exam: Positive: Alert, Cooperative, Mild Distress Eye Exam: Positive: PERRLA ENT Exam: Positive: Atraumatic Neck Exam: Positive: Supple, JVD Chest Exam: Positive: Rhonchi (with the bibasilar crackles), Diminished; Negative: Clear to auscultation (with) Heart Exam: Positive: Rate Normal, Irregular Rhythm, Normal S1, Normal S2; Negative: Murmurs, Rubs Telemetry: Positive: Atrial fibrillation Abdomen Exam: Positive: Normal bowel sounds, Soft; Negative: Tenderness, Hepatospenomegaly Extremity Exam: Positive: Clubbing, Normal pulses; Negative: Cyanosis, Edema Skin Exam: Positive: Nl turgor and temperature Neuro Exam: Positive: Strength at 5/5 X4 ext, Cranial Nerves 3-12 NL Psych Exam: Positive: Mental status NL, Memory Intact, Oriented x 3 Assessment /Plan Assessment Patient is 73 years old female with past medical history of CHF, hypertension, hypothyroid, diabetes type 2, insomnia, anxiety, COPD who is active smoker presented hospital with exertional shortness of breath. Patient complained of increased shortness of breath on exertion for past few days associated with increased cough with increased amount of sputum. Patient stated that his sputum became yellow and then for past few days greenish. Patient denied fever but stated that she has been having sweating. Also patient complains of orthopnea, she needed to increase number of pillows to 3 due to severe shortness of breath. Acute respiratory failure with hypercapnia multifactorial secondary to COPD exacerbation superimposed with acute exacerbation of systolic and diastolic CHF Continue treatment and oxygen DuoNeb, budesonide, Solu-Medrol IV Acute on Chronic Diastolic and systolic Congestive heart disease compensated at present In December 2018 Echo showed: Left ventricular systolic function appeared to be mildly depressed, estimated at 40-50%. will continue with home dose of lasix. COPD exacerbation will give duonebs, budesonide as routine and albuterol prn on solumetrol and on ceftriaxone and azithromycin sputum culture and blood culture ordered. Atrial fibrillation Chronic continue xarelto, bisoprolol Diabetes mellitus uncontrolled at this point due to steroids will start levemir, continue lispo sliding scale continue home glipizide. Hypertension continue losartan and bisoprolol Hypothyroid synthroid Hyperlipidemia statin Anxiety and insomnia on zolpidem, venlafaxine. Plan/VTE VTE Prophylaxis Ordered?: Yes VS, I&O, 24H, Fishbone Vital Signs/I&O Vital Signs Date Time Temp Pulse Resp B/P (MAP) Pulse Ox O2 Delivery O2 Flow Rate FiO2 03/20/19 11:30 18 03/20/19 09:11 143/66 03/20/19 04:00 61 96 03/20/19 00:09 Room Air 03/19/19 18:38 97.8 l I&O- Last 24 Hours up to 6 AM 03/20/19 06:00 Intake Total 660 ml Balance 660 ml Laboratory Data 24H LABS Laboratory Tests 2 03/19/19 18:44: Lactic Acid Level 2.0 03/19/19 19:03: Immature Granulocyte % (Auto) 0.5, Neutrophils (%) (Auto) 78.0H, Lymphocytes (%) (Auto) 9.9L, Monocytes (%) (Auto) 10.5H, Eosinophils (%) (Auto) 0.7, Basophils (%) (Auto) 0.4, Neutrophils # (Auto) 10.7H, Lymphocytes # (Auto) 1.4L, Monocytes # (Auto) 1.5H, Eosinophils # (Auto) 0.1, Basophils # (Auto) 0.1, Nucleated Red Blood Cells % (auto) 0.0, Prothrombin Time 37.5H, Prothromb Time International Ratio 3.80, Blood Gas Bicarbonate Standard 24.5, Venous Blood pH 7.337, Venous Blood Partial Pressure CO2 53.0H, Venous Blood Partial Pressure O2 30.7, Venous Blood Total Carbon Dioxide 29.4H, Venous Blood HCO3 27.8H, Venous Blood Oxygen Saturation 58.1L, Venous Blood Base Excess 1.0, Anion Gap 9, Glomerular Filtration Rate > 60.0, Calcium Level 8.5L, Total Bilirubin 0.2, Direct Bilirubin 0.1, Aspartate Amino Transf (AST/SGOT) 9, Alanine Aminotransferase (ALT/SGPT) 14, Alkaline Phosphatase 108, Total Creatine Kinase 24L, Creatine Kinase MB 1.5, Creatine Kinase MB Relative Index 6.25H, Troponin I < 0.02, [id number]-Type Natriuretic Peptide 3436H, Total Protein 6.7, Albumin 3.0L, Albumin/Globulin Ratio 0.81L, Thyroid Stimulating Hormone (TSH) 1.050 03/19/19 20:29: Influenza Type A (RT-PCR) NEGATIVE, Influenza Type B (RT-PCR) NEGATIVE 03/19/19 23:46: Bedside Glucose (Misc Panel) 304H 03/20/19 00:17: Bedside Glucose (Misc Panel) 335H 03/20/19 07:48: Bedside Glucose (Misc Panel) 419H 03/20/19 07:53: Bedside Glucose (Misc Panel) 378H 03/20/19 08:05: Nucleated Red Blood Cells % (auto) 0.0, Anion Gap 7L, Glomerular Filtration Rate 46.1, Calcium Level 8.4L, Magnesium Level 1.4L 03/20/19 11:47: Bedside Glucose (Misc Panel) 402H CBC/BMP Laboratory Tests 03/19/19 19:03 03/20/19 08:05 Microbiology Microbiology 03/19/19 Blood Culture, Received Pending 03/19/19 Blood Culture, Received Pending 03/19/19 Gram Stain - Final, Resulted 03/19/19 Sputum Culture, Resulted Pending MACARIO ROSALES MD Mar 20, 2019 12:26
[2019-03-20] MEDS: IPRATROPIUM 0.5MG/ALBUTEROL 2.5MG INH SOL UD 3ML (DUONEB)(J7620) NEB SCH ×2 (13:52→19:31)
[2019-03-20] MEDS: methylPREDNISolone INJ 40 MG/1 ML VIAL (J2920) IV SCH ×2 (14:48→21:00)
[2019-03-20 15:19] VITALS: BP 125/65
[2019-03-20] MEDS ORDERED: RIVAROXABAN 20 MG TAB (XARELTO) PO SCH (18:00)
[2019-03-20] MEDS: glipiZIDE XL 5 MG TABCR PO SCH (20:54)
[2019-03-20] MEDS: bisoproloL fumarate 5 MG TAB PO SCH (20:59)
[2019-03-20 22:00] VITALS: BP 137/80
[2019-03-20] MEDS: cefTRIAXone SOD 1 GM in D5W MINI-BAG PLUS 50 ML IV SCH (23:41)
[2019-03-21] MEDS: AZITHROMYCIN INJ 500 MG, VIAL MATE ADAPTER 1 EACH in D5W 250 ML IV SCH (00:39)
[2019-03-21] MEDS: IPRATROPIUM 0.5MG/ALBUTEROL 2.5MG INH SOL UD 3ML (DUONEB)(J7620) NEB SCH ×2 (02:00→07:36)
[2019-03-21 06:00] VITALS: BP 139/63
[2019-03-21] MEDS: LEVOTHYROXINE 50MCG TABLET (0.05MG) PO SCH (06:40)
[2019-03-21] MEDS ORDERED: HumaLOG INSULIN (NovoLOG) PER UNIT SC ONE (07:15)
[2019-03-21] MEDS: BUDESONIDE 0.25 MG/2 ML INHALATION SUSPENSION INH SCH (07:36)
[2019-03-21] MEDS: HumaLOG INSULIN (NovoLOG) PER UNIT SC SCH (08:42)
[2019-03-21 08:43] VITALS: BP 139/63
[2019-03-21] MEDS: OMEPRAZOLE 20 MG CAP PO SCH (08:43)
[2019-03-21] MEDS: LOSARTAN 25 MG TAB PO SCH (08:43)
[2019-03-21] MEDS: ATORVASTATIN 20 MG TAB PO SCH (08:43)
[2019-03-21] MEDS: CYCLOBENZAPRINE 10 MG TAB PO SCH (08:43)
[2019-03-21] MEDS: MIRALAX *UNIT DOSE* 17GM PACKET PO SCH (08:44)
[2019-03-21] MEDS: NICOTINE 21MG/24HR 1 EA TRANSDERMAL TD SCH (08:44)
[2019-03-21] MEDS ORDERED: BUDE0.254 INH (08:58)
[2019-03-21] MEDS ORDERED: PRED20TA PO (08:58)
[2019-03-21] MEDS ORDERED: IPRA2IN INH ×2 (08:59→09:03)
[2019-03-21] MEDS ORDERED: predniSONE 20 MG TAB PO SCH (09:00)
[2019-03-21] MEDS ORDERED: LEVEMIR (INSULIN DETEMIR) 1 UNITS/0.01ML SC SCH (09:00)
[2019-03-21] MEDS ORDERED: FUROSEMIDE 40 MG TAB PO SCH (09:00)
[2019-03-21] MEDS ORDERED: ALBU83IN INH (09:03)
[2019-03-21] MEDS: glipiZIDE XL 5 MG TABCR PO SCH (09:38)
[2019-03-21] MEDS: PERCOCET 5MG/325MG TAB PO PRN (09:39)
[2019-03-21] MEDS ORDERED: AZIT500T5 PO (12:00)
--- NOTE | 2019-03-21 12:04 | DS.PDOC ---
Discharge Summary General Date of Admission Mar 19, 2019 at 22:54 Date of Discharge 03/21/19 Discharge Summary PROCEDURES PERFORMED DURING STAY: [None]. DISCHARGE DIAGNOSES: Acute respiratory failure with hypercarbia COPD exacerbation Acute on chronic systolic and diastolic chf Hyperglycemia SECONDARY DIAGNOSIS: CHF systolic and diastolic, hypertension, hypothyroid, diabetes type 2, A fib, hyperlipidemia, insomnia, anxiety, COPD who is active smoker COMPLICATIONS/CHIEF COMPLAINT: Chf;Copd Exacerbation;Exertional Dyspnea. HISTORY OF PRESENT ILLNESS: See history and physical HOSPITAL COURSE: Patient is 73 years old female with past medical history of CHF, hypertension, hypothyroid, diabetes type 2, insomnia, anxiety, COPD who is active smoker presented hospital with exertional shortness of breath. Patient complained of increased shortness of breath on exertion for past few days associated with increased cough with increased amount of sputum. Patient stated that his sputum became yellow and then for past few days greenish. Patient marco ed fever but stated that she has been having sweating. Also patient complains of orthopnea, she needed to increase number of pillows to 3 due to severe shortness of breath. Acute respiratory failure with hypercapnia multifactorial secondary to COPD exacerbation superimposed with acute exacerbation of systolic and diastolic CHF Continue treatment DuoNeb, budesonide nebs, prednisone Acute on Chronic Diastolic and systolic Congestive heart disease compensated at present In December 2018 Echo showed: Left ventricular systolic function appeared to be mildly depressed, estimated at 40-50%. will continue with home dose of lasix. COPD exacerbation will give duonebs, budesonide as routine and albuterol prn and duonebs tid prn and azithromycin. Atrial fibrillation Chronic continue xarelto, bisoprolol Diabetes mellitus uncontrolled at this point due to steroids restart all home meds. Hypertension continue losartan and bisoprolol Hypothyroid synthroid Hyperlipidemia statin Anxiety and insomnia on zolpidem, venlafaxine. DISCHARGE MEDICATIONS: Please see below. ALLERGIES: Please see below. PHYSICAL EXAMINATION ON DISCHARGE: VITAL SIGNS: Please see below. General Exam: Positive: Alert, Cooperative, Mild Distress Eye Exam: Positive: PERRLA ENT Exam: Positive: Atraumatic Neck Exam: Positive: Supple, JVD Chest Exam: Positive:clear to auscultation, diminished breath sounds Heart Exam: Positive: Rate Normal, Irregular Rhythm, Normal S1, Normal S2; Negative: Murmurs, Rubs Telemetry: Positive: Atrial fibrillation Abdomen Exam: Positive: Normal bowel sounds, Soft; Negative: Tenderness, Hepatospenomegaly Extremity Exam: Positive: Clubbing, Normal pulses; Negative: Cyanosis, Edema Skin Exam: Positive: Nl turgor and temperature Neuro Exam: Positive: Strength at 5/5 X4 ext, Cranial Nerves 3-12 NL Psych Exam: Positive: Mental status NL, Memory Intact, Oriented x 3 LABORATORY DATA: Please see below. ACTIVITY: [As tolerated]. DIET: As tolerated DISPOSITION: 01 Home, Self-Care. DISCHARGE INSTRUCTIONS: Follow up PMD in 1 week DISCHARGE CONDITION: [Stable]. TIME SPENT ON DISCHARGE: 35 minutes. Vital Signs/I&Os Vital Signs Date Time Temp Pulse Resp B/P (MAP) Pulse Ox O2 Delivery O2 Flow Rate FiO2 03/21/19 10:11 16 03/21/19 08:43 139/63 03/21/19 06:00 97.4 65 95 Room Air I&O- Last 24 Hours up to 6 AM 03/21/19 06:00 Intake Total 1520 ml Balance 1520 ml Laboratory Data Labs 24H Laboratory Tests 2 03/20/19 17:18: Bedside Glucose (Misc Panel) 242H 03/20/19 20:27: Bedside Glucose (Misc Panel) 347H 03/21/19 05:34: Bedside Glucose (Misc Panel) 500H 03/21/19 08:35: Bedside Glucose (Misc Panel) 454H FSBS Laboratory Tests Test 03/20/19 17:18 03/20/19 20:27 03/21/19 05:34 03/21/19 08:35 Range/Units Bedside Glucose (Misc Panel) 242 347 500 454 83-110 MG/DL Microbiology Microbiology 03/21/19 Respiratory Virus Panel (PCR) (MIGUELANGEL) - Final, Complete 03/19/19 Blood Culture - Preliminary, Resulted No growth after 24 hours . All specim... 03/19/19 Blood Culture - Preliminary, Resulted No growth after 24 hours . All specim... 03/19/19 Gram Stain - Final, Resulted 03/19/19 Sputum Culture, Resulted Pending Discharge Medications Scheduled Atorvastatin Calcium (Atorvastatin Calcium) 40 Mg Tab, 40 MG PO DAILY, (Reported) Bisoprolol Fumarate (Bisoprolol Fumarate) 5 Mg Tab, 2.5 MG PO QHS, (Reported) Budesonide (Budesonide) 0.25 Mg/2 Ml Ampul.neb, 0.25 MG INH RBID Cholecalciferol (Vitamin D3) (D3-50) 50,000 Unit Capsule, 50,000 UNIT PO MTHLY, (Reported) 1ST OF THE MONTH Cyclobenzaprine HCl (Cyclobenzaprine HCl) 10 Mg Tab, 10 MG PO BID, (Reported) Furosemide (Furosemide) 20 Mg Tablet, 40 MG PO DAILY, (Reported) Glipizide (Glipizide ER) 10 Mg Tab, 10 MG PO BID, (Reported) Lansoprazole (Lansoprazole) 30 Mg Cap, 30 MG PO DAILY, (Reported) Levothyroxine Sodium (Levoxyl) 50 Mcg Tab, 50 MCG PO DAILY, (Reported) Losartan Potassium (Losartan Potassium) 25 Mg Tablet, 25 MG PO DAILY, (Reported) Melatonin (Melatonin) 3 Mg Tab, 3 MG PO QHS, (Reported) TAKES WITH 10MG FOR 13MG TOTAL Melatonin (Melatonin) 10 Mg Tablet, 10 MG PO QHS, (Reported) TAKES WITH 3MG FOR 13MG TOTAL Metformin HCl (Metformin HCl) 500 Mg Tab, 500 MG PO WM, (Reported) Polyethylene Glycol 3350 (Polyethylene Glycol 3350) 1 Pow Pow, 17 GM PO DAILY, (Reported) MIXES WITH BENEFIBER Prednisone (Prednisone) 20 Mg Tablet, 40 MG PO DAILY Repaglinide (Repaglinide) 1 Mg Tablet, 0.5 MG PO WM, (Reported) Rivaroxaban (Xarelto) 20 Mg Tab, 20 MG PO QPM, (Reported) TAKES AT 1700 Venlafaxine HCl (Venlafaxine HCl ER) 75 Mg Cap, 75 MG PO QHS, (Reported) Wheat Dextrin (Benefiber) 152 Gm Powder, 1 TSP PO DAILY, (Reported) MIXES WITH MIRALAX Zolpidem Tartrate (Zolpidem Tartrate) 5 Mg Tablet, 5 MG PO QHS, (Reported) Scheduled PRN Albuterol Sulf (Albuterol Sulfate) 2.5 Mg/3 Ml Vial.neb, 2.5 MG INH TIDP PRN for SHORTNESS OF BREATH Albuterol Sulfate (Proair Hfa) 8.5 Gm Hfa.aer.ad, 2 PUFF INH QID PRN for SHORTNESS OF BREATH, (Reported) Dicyclomine HCl (Dicyclomine HCl) 10 Mg Capsule, 10 MG PO ACHS PRN for CRAMPS, (Reported) Fluticasone Propionate (Flonase Allergy Relief) 50 Mcg/Act Spr, 2 SPRAYS NA DAILY PRN for NASAL CONGESTION, (Reported) Ipratropium [place] (Ipratropium [place]) 0.2 Mg/1 Ml Solution, 0.5 MG INH TIDP PRN for SHORTNESS OF BREATH Oxycodone HCl/Acetaminophen (Percocet 5-325 mg Tablet) 1 Tab Tab, 1 TAB PO Q6H PRN for PAIN, (Reported) Silodosin (Rapaflo) 8 Mg Capsule, 8 MG PO DAILY PRN for URINARY PROBLEMS, (Reported) Allergies Coded Allergies: amitriptyline (Verified Allergy, Unknown, 03/19/19) amlodipine (Verified Allergy, Unknown, 03/19/19) doxycycline (Verified Allergy, Unknown, 03/19/19) fentanyl (Verified Allergy, Unknown, 03/19/19) gabapentin (Verified Allergy, Unknown, 03/19/19) hydrocortisone (Verified Allergy, Unknown, 03/19/19) lisinopril (Verified Allergy, Unknown, 03/19/19) nabumetone (Verified Allergy, Unknown, 03/19/19) neomycin (Verified Allergy, Unknown, 03/19/19) polymyxin B (Verified Allergy, Unknown, 03/19/19) propoxyphene (Verified Allergy, Unknown, 03/19/19) propylene glycol (Verified Allergy, Unknown, 03/19/19) starch (Verified Allergy, Unknown, 03/19/19) MACARIO ROSALES MD Mar 21, 2019 12:04
[2019-03-21] MEDS ORDERED: AZITHROMYCIN 250 MG TAB PO SCH (21:00)
--- NOTE | 2019-03-21 22:09 | ECGEPIP ---
[facility] - ED Test Date: 2019-03-19 Pat Name: FRANCISCO NAILS Department: Room: [place] [address] Gender: Female [employer] Officer: MITZI : 1945 Requested By: Misty Bonilla Order Number: [id number] Reading MD: Brett Kapadia Measurements Intervals [place] Rate: 74 P: DE: 0 QRS: -56 QRSD: 140 T: 166 QT: 432 QTc: 480 Interpretive Statements Suspected atrial flutter with controlled rate LEFT BUNDLE BRANCH BLOCK Delayed anterior R wave progression Electronically Signed on 03-21-2019 22:08:55 EST by Brett Kapadia
[2019-04-02] MEDS ORDERED: VITAMIN D 50,000 UNITS CAPSULE (ERGOCALCIFEROL 1.25MG) PO SCH (09:00)
== END 2019-03-21 10:55 | disposition home or self-care (01) | DRG 291 ==
LOC: M ED 18:35 → M ED INP 22:54 → M MS4PR 03-20 04:35 → M MS5PR 03-20 15:10
PROVIDERS: ADMIT Internal Medicine; ATTEND Internal Medicine
DX: I11.0 Hypertensive heart disease with heart failure (principal); J96.02 Acute respiratory failure with hypercapnia; J44.1 Chronic obstructive pulmonary disease with (acute) exacerbation; I48.0 Paroxysmal atrial fibrillation; I50.33 Acute on chronic diastolic (congestive) heart failure; F17.200 Nicotine dependence, unspecified, uncomplicated; E03.9 Hypothyroidism, unspecified; E78.5 Hyperlipidemia, unspecified; E11.9 Type 2 diabetes mellitus without complications; G47.00 Insomnia, unspecified; F41.9 Anxiety disorder, unspecified; Z79.899 Other long term (current) drug therapy; Z88.8 Allergy status to other drugs, medicaments and biological substances; K57.30 Diverticulosis of large intestine without perforation or abscess without bleeding; M54.2 Cervicalgia; M54.5 Low back pain; I44.7 Left bundle-branch block, unspecified; Z79.01 Long term (current) use of anticoagulants

== ENCOUNTER 2019-06-11 08:18 | Emergency (ER) | payer MEDICARE, BC ==
[~2019-06-11] VITALS: Ht 162.6 cm; Wt 58.8 kg
[~2019-06-11 08:18] MED LIST changes: -[UNRECOGNIZED DRUG - REMARK]
[2019-06-11 08:19] VITALS: BP 154/78
[2019-06-11] MEDS ORDERED: [UNRECOGNIZED DRUG - REMARK] (08:50)
[2019-06-11 09:14] LABS: HEMATOCRIT 40.2 % (36.0-47.0); HEMOGLOBIN 12.3 g/dl (12.0-15.5); MEAN CORPUSCULAR HEMOGLOBIN 25.6 pg (27.0-33.0); MEAN CORPUSCULAR HGB CONC 30.6 g/dl (32.0-36.5); MEAN CORPUSCULAR VOLUME 83.8 fl (80.0-96.0); PLATELET COUNT, AUTOMATED 255 10^3/uL (150-450); WHITE BLOOD COUNT 7.8 10^3/uL (4.0-10.0)
[2019-06-11 09:37] LABS: BLOOD UREA NITROGEN 22 MG/DL (7-18); CALCIUM LEVEL 9.2 MG/DL (8.8-10.2); CARBON DIOXIDE LEVEL 31 MEQ/L (21-32); CHLORIDE LEVEL 103 MEQ/L (98-107); CREATININE FOR GFR 0.93 MG/DL (0.55-1.30); GLOMERULAR FILTRATION RATE > 60.0 (>39); GLUCOSE, FASTING 139 MG/DL (70-100); POTASSIUM SERUM 4.1 MEQ/L (3.5-5.1); SODIUM LEVEL 138 MEQ/L (136-145)
--- NOTE | 2019-06-15 14:41 | ED PDOC ---
Post-Departure Follow-Up kirill esteban faxed formal report of bilateral lower extrem arterial report. Glenn Smith MD Jun 15, 2019 14:41
== END 2019-06-11 09:10 | disposition home or self-care (01) ==
LOC: M ED 08:18
DX: I73.9 Peripheral vascular disease, unspecified (principal); E11.51 Type 2 diabetes mellitus with diabetic peripheral angiopathy without gangrene; I10 Essential (primary) hypertension; F17.200 Nicotine dependence, unspecified, uncomplicated; J44.9 Chronic obstructive pulmonary disease, unspecified; I48.91 Unspecified atrial fibrillation; I99.8 Other disorder of circulatory system; Z79.01 Long term (current) use of anticoagulants; Z79.51 Long term (current) use of inhaled steroids; Z79.84 Long term (current) use of oral hypoglycemic drugs; Z79.899 Other long term (current) drug therapy; Z88.1 Allergy status to other antibiotic agents; Z88.8 Allergy status to other drugs, medicaments and biological substances; Z91.018 Allergy to other foods; Z88.6 Allergy status to analgesic agent

== ENCOUNTER → 2019-06-11 | Outpatient (CLI) | payer MEDICARE, BC ==
[~2019-06-11] MED LIST changes: +ALBU83IN INH; +AZIT500T5 PO; +BENE1POW7 PO; +BISO5TAB14 PO; -BISO5TAB9 PO; +BUDE0.254 INH; +D3-5CAP PO; +DEXT350P PO; +DICY10CA13 PO; -FIBEPOW PO; +FURO20TA2 PO; +IPRA2IN INH; +LOSA25TA14 PO; +PRED20TA PO; +PROAAER10 INH; +RA M10TA PO; +RAPA8CAP4 PO; +REPA1TAB4 PO; +ZOLP5TAB PO; +[UNRECOGNIZED DRUG - REMARK]
--- NOTE | 2019-06-11 14:31 | REP ---
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 176 biphasic Profunda 240 biphasic SFA prox 161 biphasic SFA mid 152 biphasic SFA dist 108 biphasic Pop 87.7 biphasic JEAN PAUL prox 77 biphasic Tib/P tr 28.4 -- WRECKING MECHANIC pr occluded -- WRECKING MECHANIC dst occluded -- JEAN PAUL dst 75.2 biphasic Left lower extremity: Brachial peak systole: -- mmHg Dorsalis pedis peak systole : -- mmHg WRECKING MECHANIC peak systole: -- mmHg GARRETT peak systole : -- Velocity Phasicity 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 There is stenosis of the profunda femoral arteries bilaterally. The right WRECKING MECHANIC is occluded from proximal to distal. The flow velocities in the left JEAN PAUL a are increased proximally and distally. The GARRETT could not be performed on the right or the left. The patient could not withstand the pressure from the procedure. Electronically Signed by Aguila Lynn MD 06/11/2019 02:22 P
== END ==
LOC: M RAD 11:13
PROVIDERS: ATTEND Internal Medicine
DX: I99.8 Other disorder of circulatory system (principal)

== ENCOUNTER → 2019-06-26 | Outpatient (CLI) | payer MEDICARE, BC ==
[~2019-06-26] MED LIST changes: +CLOPIDOGREL 75 MG TAB As Ordered ONE; +CLOPIDOGREL 75 MG TAB PO ONE; +HEPARIN 1,000 UNITS/ML 10ML VIAL (FOR RADIOLOGY& DIALYSIS ONLY)(J1644-10) As Ordered ONE; +ISOVUE-300 61% 50ML VIAL (Q9967) As Ordered ONE; +LIDOCAINE 1% MDV 20ML VIAL As Ordered ONE; +MIDAZOLAM INJ 2 MG/2 ML VIAL (J2250) As Ordered ONE; +NYSTATIN OINTMENT 15 GM TOP PRN; +NYSTOI TOP; +PERCOCET 5MG/325MG TAB As Ordered ONE; +PERCOCET 5MG/325MG TAB PO PRN; +[UNRECOGNIZED DRUG - REMARK]; +diazePAM 5 MG TAB As Ordered ONE; +diazePAM 5 MG TAB PO ONE; +diphenhydrAMINE INJ 50MG/ML VIAL (J1200) As Ordered ONE; +fentaNYL 100 MCG/2 ML INJECTION (J3010) As Ordered ONE
--- NOTE | 2019-06-26 09:26 | ROOPDOC ---
[facility] Report Of Operation Report of Operation DATE OF PROCEDURE: 06/26/19 PREPROCEDURE DIAGNOSES: Atherosclerosis in the [place] vessels with lifestyle limiting claudication. POSTPROCEDURE DIAGNOSES: Same. PROCEDURE: 1. Ultrasound-guided access left common femoral artery 2. Aortoiliofemoral arteriogram and oblique views with selection of right common iliac artery, right superficial femoral artery with right lower extremity runoff 3. Angioplasty posterior tibial artery with 2.5 x 220 Moy balloon 4. Stenting external iliac artery with 7 x 57 and 7 x 27 balloon expandable express stents 5. Completion arteriogram 6. Mynx closure left common femoral artery SURGEON: Chelo Orellana MD ANESTHESIA: Local anesthesia 10 mL lidocaine. Moderate intravenous conscious sedation was supervised by Dr. Orellana. The patient was independently monitored by registered nurse and signed the Department of radiology using automated blood pressure, EKG, and pulse oximetry. Once the patient was placed on the monitor, we noted that she was in a flutter and bradycardic with heart rate in the 50s. The patient is known to have atrial fibrillation and has a loop recorder, and I discussed with Dr. Carter whether or not it was safe for us to proceed with her arteriogram and possible intervention today. He felt this would be low risk for cardiac sequela and thus we elected to proceed with the procedure. The details sedation record is permanently stored in the hospital information system. The following is the brief sedation record: Start time 07:55, stop time 08:41, Versed 1 mg IV, fentanyl 50 g IV, heparin 5000 units IV. INDICATION FOR PROCEDURE: This is a very pleasant 74-year-old patient with arterial insufficiency, long-term tobacco abuse, and lifestyle limiting claudication. Risks benefits alternatives to an arteriogram potential intervention were explained to the patient and she is agreeable to proceed. Informed consent was obtained. INTERPRETATION: 1. The distal aorta and common iliac arteries are calcified and ectatic but otherwise widely patent. There is good flow into the hypogastrics bilaterally. The left external iliac artery is calcified but widely patent and runs off into widely patent common femoral artery. The right external iliac artery has a focal area of 70% stenosis just above the pelvic brim but is diffusely narrowed proximally 40% from the hypogastric to the pelvic brim. 2. The right common femoral artery is calcified but widely patent. There is good flow into the profunda branches. The SFA is mildly ectatic and calcified throughout, but no flow limitation is noted. 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 The anterior tibial artery is the largest of the tibial vessels and has in-line flow from the mid knee all the way to the dorsal pedis artery which has excellent perfusion into the pedal vessels. The tibioperoneal trunk is widely p atent and bifurcates distal to the knee and the normal anatomic position into the peroneal artery and the posterior tibial artery. The posterior tibial artery is not occluded as suggested on the arterial duplex, but is diminutive. No stenoses are noted and it does have flow into the pedal vessels and the plantar arch of the foot. The peroneal artery is widely patent to the ankle, also diminutive in size. 3. After angioplasty with a 2.5 x 220 Moy balloon in the posterior tibial artery, we did not noticed any waist to suggest a stenoses we did not appreciate a arteriogram, and the vessel is widely patent. There is some mild spasm noted proximally and distally at the ankle, but flow is present all the way through the vessel. 4. After his stenting the right external iliac artery with a 7 x 57 and 7 x 27 express balloon expandable stents, there is widely patent flow through the iliac system with preservation of flow through the hypogastric artery. REPORT OF OPERATION: Patient was brought to the angiographic suite in stable condition and placed supine on the fluoroscopic table. Her bilateral groins were prepped and draped in a sterile fashion. A timeout was performed. Local anesthesia was administered to the skin and subcutaneous tissue over the left groin and a microneedle was used to access the artery under ultrasound guidance. A wire was passed through this access under fluoroscopic guidance and a 4 Swedish glide sheath was placed and flushed with saline. We then advanced a Glidewire and an Omni flushed catheter and the distal aorta under fluoroscopic guidance and aortoiliofemoral arteriograms were performed, including an oblique view of the right iliac system. Please see interpretation above. We then went up and over the bifurcation with the Omni flushed catheter in the Glidewire and selected the right common iliac artery for additional arteriograms, and then selected the right common femoral and SFA artery for right lower extremity runoff. Please see interpretation above. We then advanced the Glidewire into the distal SFA under fluoroscopic guidance and exchanged sheath for a 7 Swedish destination sheath up and over the bifurcation and flushed the sheath with saline. We exchange the wire for an O18 Glidewire advantage and carefully navigated this down and selected the posterior tibial artery. We angioplastied along the length of the vessel for three-minute inflations with a 2.[address] [place] balloon. Following this there was widely patent flow and no signs of stenoses. Mild spasm was noted in the proximal and distal aspect of the vessel after the third angioplasty, but otherwise everything was widely patent. We then exchange the wire for an O35 Glidewire and retracted sheath into the common iliac artery. We selected a 7 x 57 express balloon expandable stent and Lasix this just above the pelvic brim at the area of heaviest stenosis and calcification. A quick contrast injection confirmed the stent to be in good position and it was deployed. Following this, there was widely patent flow to the stented area but still stenosis proximal in the external iliac artery up to the hypogastric. We then selected a 7 x 27 express balloon expandable stent and deployed this with a 2 cm overlap up to but not covering the hypogastric artery. Following this, there was widely patent flow through the right iliac system with preservation of flow into the hypogastric artery. This concluded her procedure. We exchange the sheath for a 7 Swedish short sheath in the left common femoral artery and a Mynx closure device was deployed with good hemostasis. Pressure was held for 10 minutes and sterile dressings were applied. The patient was taken to recovery in stable condition. She tolerated the procedure and the sedation well. ESTIMATED BLOOD LOSS: Approximately 2 mL. COMPLICATIONS: None. PLAN: It is okay for the patient to resume her home diet and medications, including Xarelto. She will receive 1 dose of Plavix in recovery, but she will not require ongoing Plavix since she is on full anticoagulation and the iliac stents are larger and less likely to thrombose. We will see her back in clinic in a week to check her left groin access site and her perfusion. 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 The arterial duplex she had preprocedure suggested occlusion of the posterior tibial artery, but the patient did have significant nicotine use prior to that study, and I believe the vasospasm was severe enough that they could not visualize flow in the artery. The patient already has diminutive tibial vessels, and I think it is extremely important that she quit smoking for long-term arterial perfusion distally and limb preservation. I also encouraged her to ambulate daily, at least an hour a day to improve circulation. Also, while we're prepping the patient, we noted that she had a mild yeast inflammation along the midline abdominal incision infrainguinal. We will call in a prescription for some nystatin cream, but I did encourage the patient to follow up with her primary care doctor about this as an outpatient. She is agreeable to this plan. CHELO ORELLANA MD Jun 26, 2019 09:26
[2019-06-26 13:15] VITALS: BP 131/89
== END ==
LOC: M IRPRO 06:36
PROVIDERS: ATTEND Surgery Vascular Surgery
DX: I70.211 Atherosclerosis of native arteries of extremities with intermittent claudication, right leg (principal)
CPT/HCPCS: 37224; 37230; 75716; 75774; 99152; 99153; C1725; C1729; C1760; C1769; C1876; C1887; C1894; J1644; J2250; J3010; Q9967

== ENCOUNTER → 2019-08-19 | Outpatient (CLI) | payer MEDICARE, BC ==
[~2019-08-19] MED LIST changes: -CLOPIDOGREL 75 MG TAB As Ordered ONE; -CLOPIDOGREL 75 MG TAB PO ONE; +CYCL-707 PO; -CYCL10TA PO; -HEPARIN 1,000 UNITS/ML 10ML VIAL (FOR RADIOLOGY& DIALYSIS ONLY)(J1644-10) As Ordered ONE; -ISOVUE-300 61% 50ML VIAL (Q9967) As Ordered ONE; -LIDOCAINE 1% MDV 20ML VIAL As Ordered ONE; -MIDAZOLAM INJ 2 MG/2 ML VIAL (J2250) As Ordered ONE; -NYSTATIN OINTMENT 15 GM TOP PRN; -PERCOCET 5MG/325MG TAB As Ordered ONE; -PERCOCET 5MG/325MG TAB PO PRN; -diazePAM 5 MG TAB As Ordered ONE; -diazePAM 5 MG TAB PO ONE; -diphenhydrAMINE INJ 50MG/ML VIAL (J1200) As Ordered ONE; -fentaNYL 100 MCG/2 ML INJECTION (J3010) As Ordered ONE
--- NOTE | 2019-08-19 15:23 | REP ---
REASON: History of peripheral arterial disease with diabetes and tobacco abuse. On the right an ankle brachial index could not be obtained. On the left an ankle brachial index could not be obtained. 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 Electronically Signed by Rolando Ruiz DO 08/19/2019 03:26 P
== END ==
LOC: M RAD 12:38
PROVIDERS: ATTEND Physician Assistant
DX: I73.9 Peripheral vascular disease, unspecified (principal); F17.218 Nicotine dependence, cigarettes, with other nicotine-induced disorders

== ENCOUNTER → 2019-10-16 | Outpatient (REF) | payer MEDICARE, BC ==
[~2019-10-16] MED LIST changes: -ZOLP12.515 PO; +ZOLP12.518 PO
[2019-10-16 19:42] LABS: HEMATOCRIT 45.4 % (36.0-47.0); HEMOGLOBIN 13.4 g/dl (12.0-15.5); MEAN CORPUSCULAR HEMOGLOBIN 24.3 pg (27.0-33.0); MEAN CORPUSCULAR HGB CONC 29.5 g/dl (32.0-36.5); MEAN CORPUSCULAR VOLUME 82.4 fl (80.0-96.0); PLATELET COUNT, AUTOMATED 266 10^3/uL (150-450); RED BLOOD COUNT 5.51 10^6/uL (4.00-5.40); WHITE BLOOD COUNT 8.9 10^3/uL (4.0-10.0)
[2019-10-16 20:21] LABS: CREATININE, URINE 19.2 MG/DL; MALB URINE SIEMENS 8.7 MG/L; MAU/CREAT RATIO 45.3 MCG/MG (0.0-30.0)
[2019-10-16 20:34] LABS: ALBUMIN 3.9 GM/DL (3.2-5.2); BILIRUBIN,TOTAL 0.6 MG/DL (0.2-1.0); CALCIUM LEVEL 9.3 MG/DL (8.8-10.2); CHOLESTEROL RISK RATIO 2.735 (<5); CREATININE FOR GFR 1.01 MG/DL (0.55-1.30); GLOMERULAR FILTRATION RATE 57.2 (>39); POTASSIUM SERUM 4.8 MEQ/L (3.5-5.1); THYROID STIMULATING HORMONE 1.96 uIU/ML (0.358-3.740); TOTAL PROTEIN 7.7 GM/DL (6.4-8.2)
== END ==
LOC: M LABDRWAD 17:29
PROVIDERS: ATTEND Family Medicine
DX: E11.69 Type 2 diabetes mellitus with other specified complication (principal)

== ENCOUNTER 2020-03-11 00:19 | Emergency (ER) | payer MEDICARE, BC ==
[~2020-03-11] VITALS: Ht 165.1 cm; Wt 58.2 kg
[2020-03-11] MEDS ORDERED: ASPIRIN 81 MG CHEW TABLET PO ONE (01:45)
[2020-03-11 01:51] LABS: BASO % 0.3 % (0.0-1.0); EOS # 0.1 10^3/uL (0.0-0.5); EOS % 0.9 % (0.0-3.0); HEMATOCRIT 37.2 % (36.0-47.0); HEMOGLOBIN 10.6 g/dl (12.0-15.5); LYMPH # 0.8 10^3/uL (1.5-5.0); LYMPH % 7.4 % (24.0-44.0); MEAN CORPUSCULAR HEMOGLOBIN 23.1 pg (27.0-33.0); MEAN CORPUSCULAR HGB CONC 28.5 g/dl (32.0-36.5); MEAN CORPUSCULAR VOLUME 81.2 fl (80.0-96.0); MONO # 0.9 10^3/uL (0.0-0.8); MONO % 8.5 % (0.0-5.0); NEUTROPHILS # 8.7 10^3/uL (1.5-8.5); NEUTROPHILS % 82.6 % (36.0-66.0); PLATELET COUNT, AUTOMATED 257 10^3/uL (150-450); RED BLOOD COUNT 4.58 10^6/uL (4.00-5.40); WHITE BLOOD COUNT 10.5 10^3/uL (4.0-10.0)
[2020-03-11] MEDS ORDERED: METAL LOCK LOOP XX ONE (02:01)
--- NOTE | 2020-03-11 02:04 | REPVR ---
PROCEDURE INFORMATION: Exam: XR Chest, 1 View Exam date and time: 03/11/2020 1:34 AM Age: 74 years old Clinical indication: Other: Cp; Additional info: Chest pain TECHNIQUE: Imaging protocol: XR of the chest Views: 1 view. COMPARISON: OR PORTABLE CHEST X-RAY 03/19/2019 7:05 PM FINDINGS: Lungs: Mild bilateral perihilar reticulonodular opacities. Pleural space: Unremarkable. No pleural effusion. No pneumothorax. Heart/Mediastinum: Mild cardiomegaly. Bones/joints: Degenerative changes bilateral acromioclavicular joints. Organs: Status post cholecystectomy. IMPRESSION: Mild bilateral perihilar reticulonodular opacities. Cardiomegaly. Electronically signed by: Elia Ferguson On 03/11/2020 02:03:51 AM
[2020-03-11 02:25] LABS: ALBUMIN 3.2 GM/DL (3.2-5.2); ALT/SGPT 16 U/L (12-78); BILIRUBIN,DIRECT < 0.1 MG/DL (0.0-0.2); BILIRUBIN,TOTAL 0.2 MG/DL (0.2-1.0); BLOOD UREA NITROGEN 33 MG/DL (7-18); CALCIUM LEVEL 8.5 MG/DL (8.8-10.2); CARBON DIOXIDE LEVEL 30 MEQ/L (21-32); CHLORIDE LEVEL 102 MEQ/L (98-107); CK-MB VALUE MASS 2.1 NG/ML (<3.6); CPK CREATINE PHOSPHOKINASE 36 U/L (26-192); CREATININE FOR GFR 1.37 MG/DL (0.55-1.30); GLOMERULAR FILTRATION RATE 40.2 (>39); GLUCOSE, FASTING 206 MG/DL (70-100); MB/CK RELATIVE INDEX 5.83 (< OR =4); POTASSIUM SERUM 4.8 MEQ/L (3.5-5.1); SODIUM LEVEL 137 MEQ/L (136-145); TOTAL PROTEIN 6.5 GM/DL (6.4-8.2); TROPONIN I 0.03 NG/ML (< 0.10)
[2020-03-11] MEDS ORDERED: NORCO, ANEXSIA 5/325MG TABLET (HYDROcodone/ACETAMINOPHEN) PO ONE (03:45)
[2020-03-11 04:17] LABS: CK-MB VALUE MASS 1.7 NG/ML (<3.6); MB/CK RELATIVE INDEX 4.25 (< OR =4); TROPONIN I 0.02 NG/ML (< 0.10)
[2020-03-11 04:30] VITALS: BP 143/67
--- NOTE | 2020-03-11 18:13 | ECGEPIP ---
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
--- NOTE | 2020-03-11 18:14 | ECGEPIP ---
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
== END 2020-03-11 05:07 | disposition home or self-care (01) ==
LOC: M ED 00:19
DX: N17.9 Acute kidney failure, unspecified (principal); I48.92 Unspecified atrial flutter; I44.7 Left bundle-branch block, unspecified; E11.65 Type 2 diabetes mellitus with hyperglycemia; E83.51 Hypocalcemia; I10 Essential (primary) hypertension; E78.5 Hyperlipidemia, unspecified; Z79.899 Other long term (current) drug therapy; Z79.84 Long term (current) use of oral hypoglycemic drugs; Z88.8 Allergy status to other drugs, medicaments and biological substances

== ENCOUNTER 2020-04-14 13:53 | Inpatient (IN) | payer MEDICARE, BC ==
[~2020-04-14] VITALS: Ht 165.1 cm; Wt 57.2 kg
[~2020-04-14 13:53] MED LIST changes: -CLIN150C14 PO; +CLIN150C15 PO
--- OUTSIDE RECORDS SUMMARY | 2020-04-14 14:03 | CCD ---
Author Author [employer] Organization [facility] Address [address] [place] [address] Phone Care Team Providers Care Director Of Business Operations Name Role Phone Cullen Blackwell DO PP [phone] Cullen Blackwell DO Unavailable [phone] Chon Arnold MD Unavailable [phone] Magnetic, Imaging Unavailable [phone] [facility] Nurse, Practitioners Unavailable [phone] [facility] Radiology, Imaging Unavailable [phone] [facility], Radiology Unavailable [phone] Post DPM, Jovon Unavailable [phone] [facility] Urology, Clinic Unavailable [phone] Pavel KIM, Eddy Unavailable [phone] Miguel KIM, Priyanka Unavailable [phone] Bettina Box MD Unavailable [phone] Reason for Referral No Reason for Referral Recorded Problems Includes: Active, inactive, and resolved Problems All Visits Effective Date(s) Provider Condition Stat us Hypothyroidism 02/10/2020 Harish Carbajal NP Active Primary Insomnia 06/09/2019 Cullen Blackwell DO Active Cardiomyopathy 12/03/2018 Cullen Blackwell DO Active Note: Ejection fraction 35 t o 40% September 2018 Coronary Artery Disease 12/03/2018 Cullen Blackwell DO A ctive Note: Nonobstructive on card iac cath Restless Legs Syndrome 08/14/2018 Valdez Stephens MD Active Note: - 1 year history of re stless legs with pain and sporadic movements at night. Episodes have occurred nightly for the last week. Will prescribe Pramiprexole 0.125 mg to take once nightly before bed. Sinusitis 08/14/2018 Cullen Blackwell DO Inactive Note: - Greater than 2 week history of sinus pain and congestion with bilateral ear discomfort. Will prescribe Bactrim for 10 days. Low Back Pain 11/12/2017 Valdez Stephens MD Active Note: 11/17 worsening low roxanne k pain over the last month. Likely due to muscle strain. Will refer to physical therapy. Abdominal Pain 05/31/2016 Cullen Blackwell DO Inactive Note: ongoing abd pain gastr oparesis from the diabetes at least in part;; feels crampy so will try bentyl to see if helps. Reglan (metoclopramide) is to help keep the bowels moving forward in presence of this gastroparesis problem. Dizziness and giddiness 11/17/2015 Cullen Blackwell DO I nactive Note: cardiology report 10-31: holter monitor hooked up 11-02-15 and scanning analysis 11-12-15 shows multiple episodes of second-degree 1 but without bradycardia. Not correlating with symptoms. No evidence for atrial fibrillation, no changes in patient management. Cellulitis 04/21/2015 Valdez Stephens MD Inactive Note: right second toe swoll en and red around nail past week- soaks at home. Will add bactrim ds bid x 7 days;; call us or post if not getting better Shortness of Breath 01/07/2015 Cullen Blackwell DO Inact mary Anemia 01/04/2015 Valdez Stephens MD Active Note: schedule dr pavel hunter recent episode of blood in stool and anemia now resolved. ? camera swallow- colonoscopy within past few years. Endoscopy upper done earlier this year.;;;; 03/08/15 dr zhao f/u gastroparesis;; anemia likely due to xarelto and nose bleed and was recovering quickly- recent upper and lower scopes so may not need to go through with more colon imaging/scoping in light of obstructive response to cleanout attempt recently. ;; 11/12/17 iron came back to normal after 2015 and fine since - Apr. Stop iron supplement and will check again in 6 - 12 months Cellulitis of Lip 05/08/2014 - 08/07/2014 Valdez Stephens MD Resol kyra Note: and surrounding soft t issue ;;; derm gave soap and lotion for dermatitis and doing fine now 08/14 Atrial Fibrillation and Flutter 01/21/2014 Valdez Stephens MD Active Note: A Fib, resolved with C CB, chronic anticoagulation. Dermatitis 01/14/2014 - 08/07/2014 Valdez Stephens MD Resolve d Thoracic Radiculopathy 01/14/2014 Valdez Stephens MD Active Note: Eval pain and h/o golf ball size mass on MRI in mid thoracic spine around 1994 injury time. H/o fall out of tree onto that area age 15 but no eval at that time. Increased pain past 7 months. 08/15 was advised stable on imaging so not a threat Otitis Externa 12/11/2011 - 01/21/2014 Valdez Stephens MD Resolve d Note: Unchanged - got better w polymyxin drops but now burning and drainage, canal scaley and red and wet, mildly swollen. P: ch to cipro drops and bactrim oral Dysphagia 12/01/2011 - 08/15/2013 Valdez Stephens MD Resolve d Note: Unchanged - thickening at base of tongue- dr mckeon w/u underway- CT, endoscopy and laryngoscopy upcoming 12/12;;; cleared for that surgery Orthostatic Hypotension 02/27/2011 - 01/21/2014 Valdez Stephens MD Resolved Note: Unchanged Constipation 02/08/2011 Valdez Stephens MD Active Note: Unchanged Palpitations 07/27/2010 - 08/15/2013 Valdez Stephens MD Resolve d Note: Unchanged - 07/11 ref t o [place] [facility] eval rapid heart beat and near faint, light headed appros 1 wk ago causing a fall ;;;; 05/19/11 now a total of 3 fainting spells, 2 upon standing and resulting in leg frx and sprains and 1 while lying - unresponsive x 15 min and groggy very briefly w no incontinence; bp was unreadable w home cuff during that. 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 Quitting smoking is the best thing she can do to help her shortness of breath. Currently smoking 3/4 packs per day. Generalized Anxiety Disorder 09/06/2007 Valdez Stephens MD Ac tive Note: Well-Controlled Diabetes Mellitus Type 2 with Complication 11/19/2006 Valdez Stephens MD Active Note: Well-Controlled - a1c down to 8.4 despite eating sweets etc;; was 8.7 most recently. P; no change;;; 09/16 A1C 7.6 getting low feeling and glucose down to 50 etc past several months; holds the glipizide and prandin on those days only. P: Continue to hold the prandin and glipizide on days feeling or measuring low glucoses. May get so dont need one of them at all with better diet and exercise pattern developing. ;;; 8.7.17 DM foot exam- decreased sensation to light touch; no pulses palpable; calluses on balls of both big toes. Forms done for diabetic shoes.;;; 01/15/17 a1c 7.9 goal is under 8 so doing well. Walking 3-4 times a week;; smoking still but agrees to taper from 3/4 ppd to 1/2 ppd by next visit.;; 04/11/17 Glucoses higher past 2 months since son got sick and ;; has been on prednisone some of the time with bronchitis which continues;; P; add third metformin 500 - she doesnt think gets GI side effects so will add the third one to the afternoon dose so will be one in AM and two before dinner. Low dose prednisone taper. Agrees to try chantix as no benefit with patch and gum for quitting. 07/13/17 a1c was 7.9 today so good response to increase in metformin. As summer comes and she is more active, be sure to monitor for low sugar readings. If sugars are low, stop taking the glipizide to prevent going too low. ;;; 08/18 A1c was 7.9%. Reports recent burning pain and numbness in feet and legs. Good response to medications. Emphysema 11/19/2006 Valdez Stephens MD Active Note: Well-Controlled - dram atic increased shortness of breathsince hot weather and worsenen 10/20 after day in hot car and walking in heat at yard sales. Admitted short of breath - some better now;; working on quitting smoking again- 1 ppd used to be 2 ppd then off 1.5 years smoking again now x 1 year. Has the nicotine patches 14 mg but needs me to write the 21 mg though insurance not covering them. referring back to Dr Zeny hol[facility] samantha was told needed cardiac echo while in hospital [facility] increase in shortness of breath but insurance wouldnt cover her stay an extra day to get it done inpatient so they advised she get it done outpatient. Referring to dr lee pulmonary as copd is likley most of current flare. 09/16 smoking 1/2 to 3/4 ppd;; trying to taper. Function usually good; Pulmonary follows. 07/13/18 Having shortness of breath more frequently lately. Added budesonide 0.5mg nebulizer to use twice a day to help control inflammation. Wrote another prescription for Chantix. Quitting smoking is the best thing she can do to help her shortness of breath. Currently smoking 3/4 packs per day. Hypertension (systemic) 11/19/2006 Valdez Stephens MD Active Note: Well-Controlled - ligh theaded past days- did better after hospital in december after dropped from 5 mg dailly bisoprolol to 1/2 x 5 mg;; has been taking it bid so drop back to 1 a day as symptoms seem related to bp rather than heart rhythm or conduction problem. Complex Regional Pain Syndrome Type I Upper Limb 11/19/2006 Valdez Stephens MD Active Note: Unchanged - 15 mg morp malorie works well using 1 or two most days, sometimes none. Call for prescription when getting low.;; 05/31/16 morphine not helping much, taking at least one a day in evening; tried sister's percocet 10 when having pain crisis recently and worked great so will switch to that next script so bid written due for fill 06/13/16 Hyperlipidemia 11/19/2006 Valdez Stephens MD Active Note: Well-Controlled Plan of Treatment Pending Tests Order Diagnosis Results Due Ordering Provi kassi Lab MG MAMMOGRAM BILAT DIG SCREEN 06/13/19 Cullen Robbi Blackwell DO Lab (CBC)COMPLETE BLOOD CNT 03/11/20 Harish Carbajal [employer] [facility] COMPREHENSIVE METABOLIC PANEL 03/11/20 Harish Carbajal [employer] Lab LIPID PANEL 03/11/20 Harish Steele P Lab MICROALBUMIN RANDOM 03/11/20 Harish Ventura margaret [employer] Lab TSH 03/11/20 Harish Steele P Referrals To Diagnosis GI Dysphagia, Unspecifi ed Note: Please schedule patient with Pavel tinajero--liver abnormalities and weight loss, abdominal pain--[place] [facility] MRI Note: Please schedule patient for test c spine and thoracic spine. [facility] radiology [place]. Eval pain and h/o golf ball size mass on MRI in mid thoracic spine around 1994 injury time. H/o fall out of tree onto that area age 15 but no eval at that time. CT chest low dose (smoking screening) de pendent Tobacco Use Disorder Note: Please schedule patient for test Ortho Thoracic or Lumbosac ral Neuritis or Radiculitis Unspecified Note: Please schedule patient with provi kassi at [facility]. History of cervical and thoracic back pain. Dermatology Cellulitis and Absce ss of Unspecified Sites Note: Please schedule patient with provi kassi. recurrent celluulitis to face. hospitilazation. [facility] CT chest low dose (smoking screening) Referral Note: greater than 30 pack/year history smoking between age 56 and 80 smoking now or not off smoking more than 15 years. Pt cancelled but understands now and wants to get it done. [place] Ultrasound Referral Note: f/u liver cysts and fatty liver Podiatry Dm With Unspecified Complication Type Ii or Unspecified Type Note: Please schedule patient with provi kassi dr post evryan dm feet and calluses on both big toes which are painful GI Dm With Unspecified Complication Type Ii or Unspecified Type Note: Please schedule patient with provi kassi eval difficulty swallowing ? need dilation as food sticks swallowing dr zhao Ophthalmology Referral - Diabetic Eye Exam Dm Without Complication Type II or Unspecified Type Not Stat Note: Please schedule patient with provi kassi dr Lopez office [place];; his partner with foreign name (bhumi galvez) is good and she wants to see him as dr lopez has moved on Urology Urinary tract infect ion, site not specified Note: Please schedule patient with provi derPLEASE REFER FOR EVAL OF DIFFICULTY URINATING FOR 2 WKS. PLEASE SEND 2 MOST RECENT NOTES. TY. GI Note: Please schedule patient with provi kassi PLEASE REFER TO HER REGULAR GI OFFICE FOR EVAL OF GREEN STOOLS X 3 DAYS AND LOW HGB/HCT. TY GI Essential (primary) hypertension Note: Please schedule patient with provi kassi dr zhao eval recent episode of blood in stool and anemia now resolved. ? camera swallow- colonoscopy within past few years. Endoscopy upper done earlier this year. GI Hypothyroidism, unsp ecified Note: Please schedule patient with provi kassi dr zhao f/u gastroparesis;; anemia likely due to xarelto and nose bleed and was recovering quickly- recent upper and lower scopes so may not need to go through with more colon imaging/scoping in light of obstructive response to cleanout attempt recently. Cardiology Unspecified atrial f ibrillation Note: I tried to call her enrollment management coordinator, but the physician mailbox is FULL she needs hospital followup, but on Sunday of her admission. I discussed her case with Dr. Rivera here, she became very bradycardic with ambulation and he and I Think she may need electrophysiologic studies-please convey to [facility] provider Cardiology Essential (primary) hypertension Note: Please schedule patient with provi kassi Pulmonology Emphysema, unspecifi ed Note: Please schedule patient with provi kassi;;; dr lee pulmonary [facility] working on quit smoking again;; worsening short of breath especially since weather has been so hot. Urology Urinary tract infect ion, site not specified Note: Please schedule patient with provi kassi PLEASE REFER TO [facility]. HAS BEEN SEEN THERE IN THE PAST. WOULD LIKE EVAL FOR RECURRENT UTI SX. TY Urology Unspecified urinary incontinence Note: Please schedule patient with Bozem an for 2nd opinion GI Eddy Zhao MD Dvtrcli of both smal l and lg int w/o perf or abscs w/o bleed Note: Please schedule patient with provi kassi Other Chronic ischemic hea rt disease, unspecified Note: she sees [facility] in [place] - h as R LE pain and some signs of PVD/hx PVD - can they do ARTERY DOPPLER for LE to assess PVD ? please set up Future Appointments Date Time Location Provider Chronic Disease Follow-up 05/14/2020 1:30PM [facility] Harish Carbajal NP Findings Encounter Date Instructions for patient Chronic Disease Follow-up with Harish Carbajal NP 02/10/2020 Ordered follow-up visit Chronic Disease Follow-up with Harish Carbajal NP 02/10/2020 Ordered return to the clinic if condition worsens or n ew symptoms arise Chronic Disease Follow-up with Harish Carbajal NP 02/10/2020 Instructions for patient Chronic Disease Follow-up with Harish Carbajal NP 10/10/2019 Ordered Clinical summary transmitted to referring provider electronically with reasonable certainty of receipt or receiving provider electronically through [facility] Chronic Disease Follow-up with Harish Carbajal NP 10/10/2019 Ordered follow-up visit Chronic Disease Follow-up with Harish Carbajal NP 10/10/2019 Ordered return to the clinic if condition worsens or n ew symptoms arise Chronic Disease Follow-up with Harish Carbajal NP 10/10/2019 Ordered Clinical summary transmitted to referring provider electronically with reasonable certainty of receipt or receiving provider electronically through [facility] Acute L2 with Harish Carbajal NP 07/24/2019 Ordered return to the clinic if condition worsens or n ew symptoms arise Acute L2 with Harish Carbajal NP 07/24/2019 Instructions for patient SHE WAS ADV ISED TO REMOVE HER PESSARY FOR AT LEAST A FEW DAYS, TO SEE IF THAT WOULD HELP. LUKEWARM SITZ BATHS FOR COMFORT. SHE MAY CONTINUE USING MICONAZOLE CREAM, BUT WE THREW THE TUBE OUT TODAY WHILE SHE WAS HERE. SHE WILL TAKE THE DIFLUCAN ENRIQUE, AND CV TECH FLAGYL, BUT HOLD OFF ON TAKING IT UNTIL WE GET AFFIRM RESULTS BACK. SHE HAS A ROUTINE APPT. WITH HER PCP IN 3 DAYS. WE WILL F/U BY PHONE IN THE MEANTIME Acute L3 with Harish Mcmahan NP 07/21/2019 Ordered Clinical summary transmitted to referring provider electronically with reasonable certainty of receipt or receiving provider electronically through [facility] Acute L3 with Harish Mcmahan NP 07/21/2019 Ordered return to the clinic if condition worsens or n ew symptoms arise Acute L3 with Harish Mcmahan NP 07/21/2019 Instructions for patient AHR with Cullen Blackwell DO 12/2019 Ordered Clinical summary transmitted to referring provider electronically with reasonable certainty of receipt or receiving provider electronically through [facility] AHR with Cullen Blackwell DO 06/09/2019 Ordered follow-up visit AHR with Cullen Blackwell DO 12/2019 Ordered return to the clinic if condition worsens or n ew symptoms arise AHR with Cullen Blackwell DO 06/09/2019 Ordered Clinical summary transmitted to referring provider electronically with reasonable certainty of receipt or receiving provider electronically through [facility] Chart Update with Claire Wheeler RN 06/09/2019 Instructions for patient Hospital Follow-up with Harish kramer NP 03/28/2019 Ordered Clinical summary transmitted to referring provider electronically with reasonable certainty of receipt or receiving provider electronically through [facility] Hospital Follow-up with Harish Carbajal NP 03/28/2019 Ordered follow-up visit Hospital Follow-up with Harish steele NP 03/28/2019 Ordered return to the clinic if condition worsens or n ew symptoms arise Hospital Follow-up with Harish Carbajal NP 03/28/2019 Instructions for patient Same Day Acute with Cullen Robbi escobar DO 01/30/2019 Ordered Clinical summary transmitted to referring provider electronically with reasonable certainty of receipt or receiving provider electronically through [facility] Same Day Acute with Cullen Blackwell DO 01/30/2019 Ordered follow-up visit Same Day Acute with Cullen lew DO 01/30/2019 Ordered return to the clinic if condition worsens or n ew symptoms arise Same Day Acute with Cullen Blackwell DO 01/30/2019 Instructions for patient Establish Care with Cullen escobar DO 12/03/2018 Ordered Clinical summary transmitted to referring provider electronically or receiving provider electronically through [facility] Establish Care with Cullen Blackwell DO 12/03/2018 Ordered follow-up visit Establish Care with Cullen lew DO 12/03/2018 Ordered return to the clinic if condition worsens or n ew symptoms arise Establish Care with Cullen Blackwell DO 12/03/2018 Instructions for patient Hospital Follow-up with Harish kramer NP 09/16/2018 Ordered Clinical summary transmitted to referring provider electronically or receiving provider electronically through [facility] Follow-up with Harish Carbajal NP 09/16/2018 Ordered follow-up visit Hospital Follow-up with Harish steele NP 09/16/2018 Ordered return to the clinic if condition worsens or n ew symptoms arise Hospital Follow-up with Harish Carbajal NP 09/16/2018 Ordered return to the clinic if conditio n worsens or new symptoms arise Will be transported to the emergency room for further evaluation Same Day Acute with Harish Carbajal NP 09/10/2018 Ordered Clinical summary transmitted to referring provider electronically or receiving provider electronically through [facility] Chronic Disease Follow-up with Valdez Stephens MD 08/14/2018 Ordered return to the clinic if condition worsens or n ew symptoms arise Chronic Disease Follow-up with Valdez Stephens MD 08/14/2018 Ordered Clinical summary transmitted to referring provider electronically or receiving provider electronically through [facility] Chronic Disease Follow-up with Valdez Stephens MD 05/17/2018 Return to the clinic if condition worsens or new sympt oms arise Chronic Disease Follow-up with Valdez Stephens MD 05/17/2018 Instructions for patient Health Maintenance Diabetes Foot Exam with Cullen Blackwell DO 04/11/2018 Ordered follow-up visit Health Maintenance Diabetes Foot Exam with Cullen Blackwell DO 04/11/2018 Ordered return to the clinic if condition worsens or n ew symptoms arise Health Maintenance Diabetes Foot Exam with Cullen Blackwell DO 04/11/2018 Ordered Clinical summary transmitted to referring provider electronically or receiving provider electronically through [facility] Follow-up with Irena Bush NP 12/13/2017 Ordered home range of motion exercises Hospital Follow -up with Irena Bush NP 12/13/2017 Ordered moist heat Hospital Follow-up with Irena Bush NP 12/13/2017 Ordered return to the clinic if condition worsens or n ew symptoms arise Hospital Follow-up with Irena Bush NP 12/13/2017 Ordered Clinical summary transmitted to referring provider electronically or receiving provider electronically through [facility] Hospital Follow-up with Valdez Stephens MD 11/12/2017 Return to the clinic if condition worsens or new sympt oms arise Hospital Follow- up with Valdez Stephens MD 11/12/2017 Ordered Clinical summary transmitted to referring provider electronically or receiving provider electronically through [facility] AHR with Valdez Stpehens MD 07/13/2017 Ordered return to the clinic if condition worsens or n ew symptoms arise AHR with Valdez Stephens MD 07/13/2017 Ordered follow-up visit Same Day Acute with Valdez Stephens MD 04/11/2017 Return to the clinic if condition worsens or new sympt oms arise Chronic Disease Follow-up with Valdez Stephens MD 01/15/2017 Ordered Transition in care, clinical sum harish provided electronically through [facility] Diabetes Follow-up with Valdez Stephens MD 11/06/2016 Return to the clinic if condition worsens or new sympt oms arise Diabetes Follow- up with Valdez Stephens MD 11/06/2016 Ordered Transition in care, clinical sum harish provided electronically through [facility] Chronic Disease Follow-up with Valdez Stephens MD 09/11/2016 Return to the clinic if condition worsens or new sympt oms arise Chronic Disease Follow-up with Valdez Stephens MD 09/11/2016 Instructions for patient : Patient was advised to push fluids and drink cranberry juice if possible Walk-In with Harish Mcmahan NP 07/10/2016 Ordered fluids Walk-In with Harish Mcmahan NP 07/10/2016 Ordered return to the clinic if condition worsens or n ew symptoms arise Walk-In with Harish Mcmahan NP 07/10/2016 Ordered return to the clinic if conditio n worsens or new symptoms arise IF YOUR VAGINAL ITCHING COMES BACK, USE THE CREAM AGAIN WE DISCUSSED Walk-In with Harish Mcmahan NP 07/10/2016 Return to the clinic if condition worsens or new sympt oms arise Chronic Disease Follow-up with Valdez Stephens MD 05/31/2016 Ordered return to the clinic if condition worsens or n ew symptoms arise Chronic Disease Follow-up with Valdez Stephens MD 01/28/2016 Return to the clinic if condition worsens or new sympt oms arise Chronic Disease Follow-up with Valdez Stephens MD 11/10/2015 Instructions for patient Hospital Follow-up with Cullen chakraborty DO 10/28/2015 Ordered follow-up visit Hospital Follow-up with Cullen kuhn DO 10/28/2015 Ordered return to the clinic if condition worsens or n ew symptoms arise Hospital Follow-up with Cullen Robbi Blackwell DO 10/28/2015 Instructions for patient Walk-In with Cullen Robbi Blackwell DO 10/22/2015 Ordered follow-up visit Walk-In with Cullen Blackwell DO 10/22/2015 Ordered return to the clinic if condition worsens or n ew symptoms arise Walk-In with Cullen Blackwell DO 10/22/2015 Return to the clinic if condition worsens or new sympt oms arise Chronic Disease Follow-up with Valdez Stephens MD 08/04/2015 Ordered return to the clinic if condition worsens or n ew symptoms arise Chronic Disease Follow-up with Valdez Stephens MD 04/21/2015 Return to the clinic if condition worsens or new sympt oms arise Hospital Follow- up with Valdez Stephens MD 03/08/2015 Return to the clinic if condition worsens or new sympt oms arise Chronic Disease Follow-up with Valdez Stephens MD 01/15/2015 KEEP YOUR APPOINTMENT WITH THE [facility] TODAY. GET YOUR BLOODWORK DONE THE DAY BEFORE YOUR APPONTMENT WITH DR. STEPHENS. WILL DEFER TO HIM FOR F/U ON MILDLY ELEVATED TSH. CONTINUE YOUR ANTIBIOTIC. HOLD OFF ON YOUR FLU SHOT UNTIL YOUR UPCOMING APPOINTMENT. WE WILL SEND YOU TO THE UROLOGIST TO CHECK ON YOUR URINARY PROBLEMS Follow-up Acute with Harish Mcmahan NP 01/04/2015 Ordered return to the clinic if condition worsens or n ew symptoms arise Follow- up Acute with Harish Mcmahan NP 01/04/2015 THE POT LINER SAID THAT YOUR EKG IS COMPLETELY NORMAL. YOUR OXYGEN LEVEL IS NORMAL TODAY. SINCE YOU FELT BETTER AFTER THE NEBULIZER TREATMENT, WE WILL CALL YOUR POT LINER AND DISCUSS THIS WITH YOUR PRIMARY CARE PROVIDER TO SEE IF YOU CAN USE THIS AT HOME. STOP TAKING CIPRO DISCUSSED SINCE YOU DO NOT HAVE ANY URINARY SYMPTOMS AND YOUR URINE DID NOT SHOW A TRUE INFECTION. START YOUR NEW ANTIBIOTIC. IF YOU DEVELOP ANY WORSENING SHORTNESS OF BREATH OR IF YOU DEVELOP ANY CHEST PAIN AT ALL, CALL 911 ADVISED Walk-In with Harish Mcmahan NP 12/31/2014 Ordered return to the clinic if condition worsens or n ew symptoms arise Walk-In with Harish Mcmahan NP 12/31/2014 Return to the clinic if condition worsens or new sympt oms arise Chronic Disease Follow-up with Valdez Stephens MD 10/16/2014 Return to the clinic if condition worsens or new sympt oms arise Chronic Disease Follow-up with Valdez Stephens MD 08/07/2014 Ordered follow-up visit Hospital Follow-up with Valdez steele MD 05/08/2014 Ordered return to the clinic if condition worsens or n ew symptoms arise Hospital Follow-up with Valdez Stephens MD 05/08/2014 Ordered follow-up visit in 6 months Chronic Disease Fo llow-up with Valdez Stephens MD 05/01/2014 Ordered return to the clinic if condition worsens or n ew symptoms arise Chronic Disease Follow-up with Valdez Stephens MD 05/01/2014 Ordered a urine culture Walk-In with Harish woodruff NP 04/13/2014 Ordered return to the clinic if conditio n worsens or new symptoms arise SHE WILL KEEP HER APPT WITH ENT FOR LATER THIS WEEK SCHEDULED. SHE WILL TELL THEM THAT SHE IS ON NEW ABX FOR UTI Walk-In with Harish Mcmahan NP 04/13/2014 Return to the clinic if condition worsens or new sympt oms arise Walk-In with Valdez Stephens MD 02/20/2014 Return to the clinic if condition worsens or new sympt oms arise AHR with Valdez Stephens MD 01/21/2014 Return to the clinic if condition worsens or new sympt oms arise Chronic Disease Follow-up with Valdez Stephens MD 01/14/2014 OTC Benadryl for itch continue Betame thasone cream as needed finish all antibiotics as directed f/u if no improvement pt verbalizes understanding of plan of care Same Day Acute with Angela Canchola NP 12/30/2013 Ordered Clinical summary provided to patient Same Day Acute with Angela Canchola NP 12/30/2013 Return to the clinic if condition worsens or new sympt oms arise Same Day Acute with Alma MERCEDES 12/19/2013 Ordered return to the clinic if condition worsens or n ew symptoms arise Same Day Acute with Claire Carbajal [employer] 10/12/2013 Return to the clinic if condition worsens or new sympt oms arise Chronic Disease Follow-up with Valdez Stephens MD 08/15/2013 augmentin and sx care for sinus inf b actroban to ear and neck left famvir for shingles lortab PRN pain return if any increase in sx M Same Day with Irena Bush NP 07/14/2013 Ordered disposition - Patient or lazaro blankenship was instructed in use of antipyretics and decongestants. Also, the patient is to return if there is persistnece of fever for more than 48 hours, pain or other new significant symptoms M Same Day with Irena Bush NP 07/14/2013 Ordered return to the clinic if condition worsens or n ew symptoms arise M Same Day with Irena Bush NP 07/14/2013 CXR done and no acute disease. [facility] [place] [facility] [facility] given. Abnormal lung sounds persisted despite albuterol treatment. Oximetry at rest (96%) and w/ exertion (93% then back to 96%) TONNY Garrett also in to listen to lungs and assess oropharynx. Had discussion with patient about symptoms and findings and patient advised to go to ER via ambulance transport for further evaulation and monitoring of respiratory status, along [facility] evaluation for ulcers on oropharynx. Discussed with patient concerns regarding breathing status, lung sounds, recent history of fevers, and the fact that she has been sick for two weeks and getting worse. Discussed the need for more close monitoring that what can be done here. She states she understands. She refuses to go to ER via ambulance and AMA form signed (see copy in chart). She states she will have her drive her. We discussed adverse affects of not going to ER for evaluation or getting appropriate treatment such as respiratory distress, failure, and . She understands she needs to seek higher level of care at this time. She will be going to [place], [place]. *seen by TONNY Hill M Same Day with Stacy Simon NP 12/03/2012 Ordered return to the clinic if condition worsens or n ew symptoms arise Diabetes Follow-up with Valdez Stephens MD 11/13/2012 Advised to use lotion to her left leg to keep moisturized. Will use nystatin externally to gential area and buttocks until clear. Will make appointment with colo-rectal surgeon as soon as possible. Advised to go to ER with new or worsening symptoms. Patient expressed understanding and agreed with plan M Same Day with Solange Bennett NP 07/11/2012 Ordered go to the emergency room if condition worsens M Same Day with Solange Bennett NP 07/11/2012 Ordered return to the clinic if condition worsens or n ew symptoms arise M Same Day with Solange Bennett NP 07/11/2012 Ordered follow-up visit in 4 months 30 minutes with Valdez wong MD 05/17/2012 Ordered return to the clinic if condition worsens or n ew symptoms arise 30 minutes with Valdez Stephens MD 05/17/2012 Order CXR r/o pneumonia Meds as direc saloni. Tylenol PRN Continue to use inhalers PRN RTC if symptoms persist or worsen M Same Day with Bettye Randall NP 04/22/2012 Ordered fluids M Same Day with Bettye Randall NP 013 Ordered go to the emergency room if condition worsens M Same Day with Bettye Randall NP 04/22/2012 Ordered return to the clinic if condition worsens or n ew symptoms arise M Same Day with Bettye Randall NP 04/22/2012 Ordered follow-up visit reeval depressi on, anxiety 4-6 weeks with PCP, sooner if quest or problems-- advised pt if worsening moods or symptoms to call-- M Same Day with Harish MERCEDES 03/16/2012 Ordered return to the clinic if condition worsens or n ew symptoms arise M Same Day with Harish MERCEDES 03/16/2012 Cortisporin ear drops, topical lotrisone and oral se ptra prescribed M Same Day with Jalen Angel MD 02/05/2012 Ordered follow-up visit 10 days with RODRIGUEZ Chavez ([facility]) if not completely resolved, or if wants a check of cure M Same Day with Jalen Angel MD 02/05/2012 Ordered return to the clinic if condition worsens or n ew symptoms arise M Same Day with Jalen Angel MD 02/05/2012 WILL REPEAT Z-PACK SINCE SHE GOT CONSI DERABLY BETTER ON MED AND SHE HAS EXTENSIVE ALLERGY LIST. SHE AGREES WITH TX PLAN AND INDICATES UNDERSTANDING M Same Day with Harish Mcmahan [employer] 01/15/2012 Ordered return to the clinic if condition worsens or n ew symptoms arise M Same Day with Harish Mcmahan [employer] 01/15/2012 Ordered fluids M Same Day with Claire Carbajal NP 12/31 Ordered return to the clinic if condition worsens or n ew symptoms arise M Same Day with Claire Carbajal NP 01/10/2012 Ordered follow-up visit in 4 months 30 minutes with Valdez wong MD 12/01/2011 Ordered return to the clinic if condition worsens or n ew symptoms arise 30 minutes with Valdez Stephens MD 12/01/2011 Ordered fluids M Same Day with Harish patel [employer] 10/24/2011 Ordered return to the clinic if conditio n worsens or new symptoms arise PATIENT WAS ALSO SEEN BY ME AND I AGREE WITH TX PLAN COMPLETELY M Same Day with Harish Mcmahan NP 10/24/2011 Ordered a lipid profile IF YOUNGER THAN 75 AND OVER 7 5 IF RISK FACTORS. DUE: AHR with Valdez Stephens MD 05/19/2011 Ordered a mammogram Q 1-2 YEARS UNTIL AGE 71, SEE HE ALTH TAB AHR with Valdez Stephens MD 05/19/2011 Ordered an X-ray DEXA: SEE HEALTH TAB AHR with Valdez steele MD 05/19/2011 Ordered follow-up visit in 6 months AHR with Valdez Zepeda 05/19/2011 Ordered return to the clinic if condition worsens or n ew symptoms arise AHR with Valdez Stephens MD 05/19/2011 Ordered return to the clinic if condition worsens or n ew symptoms arise 10 Minute Revist with Valdez Stephens MD 02/27/2011 Ordered follow-up visit in 2 weeks 02/27/[address] Valdez Stephens, pcp -- M Same Day with Harish MERCEDES 02/13/2011 Ordered follow-up visit in 3 months M 20 Minutes with Valdez Stephens MD 02/08/2011 Ordered return to the clinic if condition worsens or n ew symptoms arise M 20 Minutes with Valdez Stephens MD 02/08/2011 Ordered follow-up visit in 3 months 30 minutes with Valdez wong MD 10/26/2010 Ordered return to the clinic if condition worsens or n ew symptoms arise 30 minutes with Valdez Stephens MD 10/26/2010 Ordered follow-up visit in 3 months M 20 Minutes with Valdez Stephens MD 07/27/2010 Ordered return to the clinic if condition worsens or n ew symptoms arise M 20 Minutes with Valdez Stephens MD 07/27/2010 Ordered follow-up visit in 3 months M Office Visit - [facility] Valdez Stephens MD 04/06/2010 Ordered return to the clinic if condition worsens or n ew symptoms arise M Office Visit - Long with Valdez Stephens MD 04/06/2010 Ordered a lipid profile DUE: see health tab 30 minutes with Valdez Stephens MD 12/31/2009 Ordered follow-up visit in 3 months 30 minutes with Valdez wong MD 12/31/2009 Ordered return to the clinic if condition worsens or n ew symptoms arise 30 minutes with Valdez Stephens MD 12/31/2009 Ordered follow-up visit in 3 months M Office Visit - [facility] Valdze Stephens MD 09/01/2009 Ordered return to the clinic if condition worsens or n ew symptoms arise M Office Visit - Long with Valdez Stephens MD 09/01/2009 Ordered follow-up visit in 3 months 30 minutes with Valdez wong MD 05/21/2009 Ordered return to the clinic if condition worsens or n ew symptoms arise 30 minutes with Valdez Stephens MD 05/21/2009 Ordered a urine culture M Health Review-Short with Valdez rodriguez MD 02/12/2009 Ordered follow-up visit in 3 months M Health Review-Short [facility] Valdez Stephens MD 02/12/2009 Ordered return to the clinic if condition worsens or n ew symptoms arise M Health Review-Short with Valdez Stephens MD 02/12/2009 Ordered fluids M Office Visit - Short with Cullen kuhn DO 01/25/2009 Ordered return to the clinic if condition worsens or n ew symptoms arise M Office Visit - Short with Cullen Blackwell DO 01/25/2009 Ordered follow-up visit in 3 months 30 minutes with Valdez wong MD 11/27/2008 Ordered return to the clinic if condition worsens or n ew symptoms arise 30 minutes with Valdez Stephens MD 11/27/2008 Ordered follow-up visit in 3 months M Office Visit - S hort with Valdez Stephens MD 08/28/2008 Ordered return to the clinic if condition worsens or n ew symptoms arise M Office Visit - Short with Valdez Stephens MD 08/28/2008 Assessments Includes: Assessments for all patient encounters Findings Encounter Date Atrial fibrillation and flutter Chronic Disease Follow-up [facility] Harish Carbajal NP 02/10/2020 Cardiomyopathy Chronic Disease Follow-up with Harish rahman NP 02/10/2020 Coronary artery disease Chronic Disease Follow-up with Harish Carbajal NP 02/10/2020 Emphysema Chronic Disease Follow-up with Harish rahman NP 02/10/2020 Generalized anxiety disorder Chronic Disease Follow-up with Harish Carbajal NP 02/10/2020 Hyperlipidemia Chronic Disease Follow-up with Harish rahman NP 02/10/2020 Hypertension Chronic Disease Follow-up with Harish rahman NP 02/10/2020 Nicotine dependence Chronic Disease Follow-up with Harish rahman NP 02/10/2020 Restless legs syndrome Chronic Disease Follow-up with Harish Carbajal NP 02/10/2020 Type 2 diabetes mellitus with complication Chronic Dis ease Follow-up with Harish Carbajal NP 02/10/2020 Abdominal pain--epigastric Chronic Disease Follow-up with Rubén Carbajal NP 10/10/2019 Anemia Chronic Disease Follow-up with Harish rahman NP 10/10/2019 Atrial fibrillation and flutter Chronic Disease Follow-up [facility] Harish Carbajal NP 10/10/2019 Chest pain Chronic Disease Follow-up with Harish rahman NP 10/10/2019 Coronary artery disease Chronic Disease Follow-up with Harish Carbajal NP 10/10/2019 Dermatophytosis Chronic Disease Follow-up with Harish rahman NP 10/10/2019 Emphysema Chronic Disease Follow-up with Harish rahman NP 10/10/2019 Generalized anxiety disorder Chronic Disease Follow-up with Harish Carbajal NP 10/10/2019 Hyperlipidemia Chronic Disease Follow-up with Harish rahman NP 10/10/2019 Hypertension Chronic Disease Follow-up with Harish rahman NP 10/10/2019 Sinusitis Chronic Disease Follow-up with Harish rahman NP 10/10/2019 Type 2 diabetes mellitus with complication Chronic Dis ease Follow-up with Harish Carbajal NP 10/10/2019 Complex regional pain syndrome type I of the upper mesa b Acute L2 with Harish Carbajal [employer] 07/24/2019 Low back pain Acute L2 with Harish Carbajal [employer] 0 Acute vaginitis Acute L3 with Harish Mcmahan NP 07/21/2019 Microscopic hematuria Acute L3 with Harish patel [employer] 07/21/2019 Cardiomyopathy Telephone Encounter with Cullen escobar DO 06/23/2019 Coronary artery disease Telephone Encounter with Cullen chakraborty DO 06/23/2019 Peripheral vascular disease Telephone Encounter with Cullen Blackwell DO 06/23/2019 Routine history and physical see kassy guallpa problem list above for impression and plan of any problems addressed today. AHR with Cullen Blackwell DO 06/09/2019 Chronic obstructive pulmonary disease Hospital Follow-up wit h Harish Carbajal [employer] 03/28/2019 Congestive heart failure Hospital Follow-up with Harish kramer [employer] 03/28/2019 Type 2 diabetes mellitus with complication Hospital Fo llow-up with Harish Carbajal NP 03/28/2019 Vaginitis Hospital Follow-up with Harish Carbajal NP 03/28/2019 Acute bronchitis Same Day Acute with Cullen Blackwell DO 01/30/2019 Atrial fibrillation and flutter Same Day Acute with Cullen Blackwell DO 01/30/2019 Bulging cervical disc Same Day Acute with Cullen crowley DO 01/30/2019 Cardiomyopathy Same Day Acute with Cullen Blackwell DO 01/30/2019 Emphysema Same Day Acute with Cullen Blackwell DO 01/30/2019 Hypertension Same Day Acute with Cullen Blackwell DO 01/30/2019 Type 2 diabetes mellitus with complication Same Day Ac alfred with Cullen Blackwell DO 01/30/2019 Atrial fibrillation and flutter Establish Care with Cullen Blackwell DO 12/03/2018 Bulging cervical disc Establish Care with Cullen crowley DO 12/03/2018 Hypertension Establish Care with Cullen Blackwell DO 12/03/2018 Type 2 diabetes mellitus with complication Establish C are with Cullen Blackwell DO 12/03/2018 Atrial fibrillation and flutter Hospital Follow-up with Harish Carbajal NP 09/16/2018 Congestive heart failure Hospital Follow-up with Harish kramer NP 09/16/2018 Hyperlipidemia Hospital Follow-up with Harish Carbajal NP 09/16/2018 Hypertension Hospital Follow-up with Harish Carbajal NP 09/16/2018 Assessment of shortness of breath Same Day Acute with Harish Carbajal NP 09/10/2018 Bronchitis Same Day Acute with Harish Carbajal NP 01/2019 Chest pain Same Day Acute with Harish Carbajal NP 01/2019 Dizziness Same Day Acute with Harish Carbajal NP 01/2019 Emphysema Same Day Acute with Harish Carbajal NP 01/2019 Type 2 diabetes mellitus with complication Same Day Acute wi th Harish Carbajal NP 09/10/2018 Restless legs syndrome - 1 year history of restless legs with pain and sporadic movements at night. Episodes have occurred nightly for the last week. Will prescribe Pramiprexole 0.125 mg to take once nightly before bed Chronic Disease Follow-up with Valdez Stephens MD 08/14/2018 Sinusitis - Greater than 2 week history of sinus pain and congestion with bilateral ear discomfort. Will prescribe Bactrim for 10 days Chronic Disease Follow-up with Valdez Stephens MD 08/14/2018 Type 2 diabetes mellitus with complication Chronic Dis ease Follow-up with Valdez Stephens MD 08/14/2018 Visit for: routine adult H&P Chronic Disease Follow-up with Valdez Stephens MD 08/14/2018 Abdominal pain Chronic Disease Follow-up with Valdez rodriguez MD 05/17/2018 Anemia Chronic Disease Follow-up with Valdez rodriguez MD 05/17/2018 Assessment of shortness of breath Chronic Disease Foll ow-up with Valdez Stephens MD 05/17/2018 Atrial fibrillation and flutter Chronic Disease Follow-up wi th Valdez Stephens MD 05/17/2018 Complex regional pain syndrome type I of the upper mes[place] b Chronic Disease Follow- up with Valdez Stephens MD 05/17/2018 Constipation Chronic Disease Follow-up with Valdez rodriguez MD 05/17/2018 Emphysema Chronic Disease Follow-up with Valdez rodriguez MD 05/17/2018 Generalized anxiety disorder Chronic Disease Follow-up with Valdez Stephens MD 05/17/2018 Hyperlipidemia Chronic Disease Follow-up with Valdez rodriguez MD 05/17/2018 Hypertension lightheaded past days- did better after hospital in december after dropped from 5 mg dailly bisoprolol to 1/2 x 5 mg;; has been taking it bid so drop back to 1 a day as symptoms seem related to bp rather than heart rhythm or conduction problem Chronic Disease Follow-up with Valdez Stephens MD 2018 Low back pain Chronic Disease Follow-up with Valdez rodriguez MD 05/17/2018 Nicotine dependence Chronic Disease Follow-up with Valdez rodriguez MD 05/17/2018 Persistent insomnia Chronic Disease Follow-up with Valdez rodriguez MD 05/17/2018 Thoracic radiculopathy Chronic Disease Follow-up with Valdez Stephens MD 05/17/2018 Type 2 diabetes mellitus with complication Chronic Dis ease Follow-up with Valdez Stephens MD 05/17/2018 Vitamin D deficiency Chronic Disease Follow-up with Valdez wong MD 05/17/2018 Type 2 diabetes mellitus with complication [facility] Exam with Cullen Blackwell DO 04/11/2018 Assessment of heartburn SBO- resolved Hospital Follow -up with Irena Bush NP 12/13/2017 Chronic obstructive pulmonary disease Hospital Follow- up with Irena Bush NP 12/13/2017 Intervertebral disc degeneration Hospital Follow-up with Meagan Bush NP 12/13/2017 Left-sided sciatica Hospital Follow-up with Irena Bush NP 12/13/2017 Sciatica Hospital Follow-up with Irena Bush NP 12/13/2017 Visit for: routine adult H&P with abnormal findings [facility] sp[facility] Follow-up with Irena Bush NP 12/13/2017 Abdominal pain Hospital Follow-up with Valdez Stephens MD 11/12/2017 Anemia Hospital Follow-up with Valdez Stephens MD 11/12/2017 Assessment of shortness of breath Hospital Follow-up with Josue Stephens MD 11/12/2017 Atrial fibrillation and flutter Hospital Follow-up with Valdez Stephens MD 11/12/2017 Complex regional pain syndrome type I of the upper mesa b Hospital Follow-up with Valdez Stephens MD 11/12/2017 Constipation Hospital Follow-up with Valdez Stephens MD 11/12/2017 Emphysema Hospital Follow-up with Valdez Stephens MD 11/12/2017 Generalized anxiety disorder Hospital Follow-up with Valdez gleason MD 11/12/2017 Hyperlipidemia Hospital Follow-up with Valdez Stephens MD 11/12/2017 Hypertension Hospital Follow-up with Valdez Stephens MD 11/12/2017 Low back pain Hospital Follow-up with Valdez Stephens MD 11/12/2017 Low back pain Hospital Follow-up with Valdez Stephens MD 11/12/2017 Nicotine dependence Hospital Follow-up with Valdez Stephens MD 11/12/2017 Persistent insomnia Hospital Follow-up with Valdez Stephens MD 11/12/2017 Thoracic radiculopathy Hospital Follow-up with Valdez Stephens MD 11/12/2017 Type 2 diabetes mellitus with complication Hospital Fo llow-up with Valdez Stephens MD 11/12/2017 Vitamin D deficiency Hospital Follow-up with Valdez Zepeda 11/12/2017 Abdominal pain AHR with Valdez Stephens MD 07/13/2017 Assessment of shortness of breath AHR with Valdez Stephens MD 07/13/2017 Emphysema AHR with Valdez Stephens MD 07/13/2017 Hyperlipidemia AHR with Valdez Stephens MD 07/13/2017 Hypertension AHR with Valdez Stephens MD 07/13/2017 Nicotine dependence AHR with Valdez Stephens MD 07/13/2017 Type 2 diabetes mellitus with complication AHR with Valdez wong MD 07/13/2017 Visit for: routine adult H&P AHR with Valdez Stephens MD 07/13 Bronchitis Same Day Acute with Valdez Stephens MD 12/2017 Type 2 diabetes mellitus with complication Same Day Acute wi th Valdez Setphens MD 04/11/2017 Abdominal pain Chronic Disease Follow-up with Valdez rodriguez MD 01/15/2017 Anemia Chronic Disease Follow-up with Valdez rodriguez MD 01/15/2017 Assessment of shortness of breath Chronic Disease Foll ow-up with Valdez Stephens MD 01/15/2017 Atrial fibrillation and flutter Chronic Disease Follow-up wi th Valdez Stephens MD 01/15/2017 Complex regional pain syndrome type I of the upper [place] b Chronic Disease Follow- up with Valdez Stephens MD 01/15/2017 Constipation Chronic Disease Follow-up with Valdez rodriguez MD 01/15/2017 Emphysema Chronic Disease Follow-up with Valdez rodriguez MD 01/15/2017 Generalized anxiety disorder Chronic Disease Follow-up with Valdez Stephens MD 01/15/2017 Hyperlipidemia Chronic Disease Follow-up with Valdez rodriguez MD 01/15/2017 Hypertension Chronic Disease Follow-up with Valdez rodriguez MD 01/15/2017 Nicotine dependence Chronic Disease Follow-up with Valdez rodriguez MD 01/15/2017 Persistent insomnia Chronic Disease Follow-up with Valdez rodriguez MD 01/15/2017 Thoracic radiculopathy Chronic Disease Follow-up with Valdez Stephens MD 01/15/2017 Type 2 diabetes mellitus with complication Chronic Dis ease Follow-up with Valdez Stephens MD 01/15/2017 Vitamin D deficiency Chronic Disease Follow-up with Valdez wong MD 01/15/2017 Complex regional pain syndrome type I of the upper [place] b Diabetes Follow-up with Valdez Stephens MD 11/06/2016 Emphysema Diabetes Follow-up with Valdez Stephens MD 11/06/2016 Hypertension Diabetes Follow-up with Valdez Stephens MD 11/06/2016 Type 2 diabetes mellitus with complication Diabetes Fo llow-up with Valdez Stephens MD 11/06/2016 Anemia Chronic Disease Follow-up with Valdez rodriguez MD 09/11/2016 Atrial fibrillation and flutter Chronic Disease Follow-up wi Valdez Stephens MD 09/11/2016 Complex regional pain syndrome type I of the upper [place] b Chronic Disease Follow- up with Valdez Stephens MD 09/11/2016 Emphysema Chronic Disease Follow-up with Valdez rodriguez MD 09/11/2016 Type 2 diabetes mellitus with complication Chronic Dis ease Follow-up with Valdez Stephens MD 09/11/2016 Acute bronchitis Walk-In with Harish Mcmahan NP 07/10/2016 Acute sinusitis Walk-In with Harish Love Isidro Mcmahan [employer] 07/10/2016 Nicotine dependence Walk-In with Harish Love Isidro Mcmahan [employer] 07/10/2016 Urinary tract infection Walk-In with Harish Love Isidro Remi woodruff [employer] 07/10/2016 Abdominal pain ongoing abd pain gastrop aresis from the diabetes at least in part;; feels crampy so will try bentyl to see if helps. Reglan (metoclopramide) is to help keep the bowels moving forward in presence of this gastroparesis problem Chronic Disease Follow-up with Valdez Stephens MD 2016 Complex regional pain syndrome type I of the upper limb 05/31/16 morphine not helping much, taking at least one a day in evening; tried sister's percocet 10 when having pain crisis recently and worked great so will switch to that next script so bid written due for fill 06/13/16 Chronic Disease Follow-up with Valdez Stephens MD 05/31/2016 Anemia Chronic Disease Follow-up with Valdez rodriguez MD 01/28/2016 Assessment of shortness of breath Chronic Disease Foll ow-up with Valdez Stephens MD 01/28/2016 Atrial fibrillation and flutter Chronic Disease Follow-up wi th Valdez Stephens MD 01/28/2016 Cellulitis Chronic Disease Follow-up with Valdez rodriguez MD 01/28/2016 Complex regional pain syndrome type I of the [place] Chronic Disease Follow- up with Valedz Stephens MD 01/28/2016 Constipation Chronic Disease Follow-up with Valdez rodriguez MD 01/28/2016 Emphysema Chronic Disease Follow-up with Valdez rodriguez MD 01/28/2016 Generalized anxiety disorder Chronic Disease Follow-up with Valdez Stephens MD 01/28/2016 Hyperlipidemia Chronic Disease Follow-up with Valdez rodriguez MD 01/28/2016 Hypertension Chronic Disease Follow-up with Valdez rodriguez MD 01/28/2016 Nicotine dependence Chronic Disease Follow-up with Valdez rodriguez MD 01/28/2016 Persistent insomnia Chronic Disease Follow-up with Valdez rodriguez MD 01/28/2016 Thoracic radiculopathy Chronic Disease Follow-up with Valdez Stephens MD 01/28/2016 Type 2 diabetes mellitus with complication Chronic Dis ease Follow-up with Valdez Stephens MD 01/28/2016 Visit for: routine adult H&P Chronic Disease Follow-up with Valdez Stephens MD 01/28/2016 Vitamin D deficiency Chronic Disease Follow-up with Valdez wong MD 01/28/2016 Emphysema dramatic increased shortness of breathsince hot weather and worsenen 10/20 after day in hot car and walking in heat at yard sales. Admitted short of breath - some better now;; working on quitting smoking again- 1 ppd used to be 2 ppd then off 1.5 years smoking again now x 1 year. Has the nicotine patches 14 mg but needs me to write the 21 mg though insurance not covering them. referring back to Dr Zeny hol[facility] [place] was told needed cardiac echo while in hospital [facility] for dramatic increase in shortness of breath but insurance wouldnt cover her stay an extra day to get it done inpatient so they advised she get it done outpatient. Referring to dr lee pulmonary as copd is likley most of current flare Chronic Disease Follow-up with Valdez Stephens MD 11/10/2015 Type 2 diabetes mellitus with complication Chronic Dis ease Follow-up with Valdez Stephens MD 11/10/2015 Atrial fibrillation and flutter hx of / also history of cardiomyopathy. Is followed by [facility] cardiology Hospital Follow-up with Cullen Blackwell DO 10/28/2015 Atypical chest pain Hospital Follow-up with Cullen lew DO 10/28/2015 Emphysema Hospital Follow-up with Cullen lew DO 10/28/2015 Hypertension Hospital Follow-up with Cullen lew DO 10/28/2015 Nicotine dependence Hospital Follow-up with Cullen lew DO 10/28/2015 Sinus bradycardia /sick sinus Hospital Follow-up with Penny Blackwell DO 10/28/2015 Type 2 diabetes mellitus with complicati on while on prednisone stay on double dose of the prandin 2 tabs with meal - and stay and 2 metformin with dinner 1 metformin in am Hospital Follow-up with Cullen Blackwell DO 016 Atrial fibrillation and flutter hx of / also history of cardiomyopathy. Is followed by [facility] cardiology Walk-In with Cullen Blackwell DO 10/22/2015 Atypical chest pain Walk-In with Cullen Blackwell DO 10/01 Dyspnea Walk-In with Cullen Blackwell DO 10/01 Hypertension Walk-In with Cullen Blackwell DO 10/01 Sinus bradycardia /sick sinus Walk-In with Cullen escobar DO 10/22/2015 Type 2 diabetes mellitus with complication Walk-In with Penny Blackwell DO 10/22/2015 Anemia Chronic Disease Follow-up with Valdez rodriguez MD 08/04/2015 Assessment of shortness of breath Chronic Disease Foll ow-up with Valdez Stephens MD 08/04/2015 Atrial fibrillation and flutter Chronic Disease Follow-up wi Valdez Stephens MD 08/04/2015 Cellulitis Chronic Disease Follow-up with Valdez rodriguez MD 08/04/2015 Complex regional pain syndrome type I of the [place] Chronic Disease Follow- up with Valdez Stephens MD 08/04/2015 Constipation Chronic Disease Follow-up with Valdez rodriguez MD 08/04/2015 Emphysema Chronic Disease Follow-up with Valdez rodriguez MD 08/04/2015 Generalized anxiety disorder Chronic Disease Follow-up with Valdez Stephens MD 08/04/2015 Hyperlipidemia Chronic Disease Follow-up with Valdez rodriguez MD 08/04/2015 Hypertension Chronic Disease Follow-up with Valdez rodriguez MD 08/04/2015 Nicotine dependence Chronic Disease Follow-up with Valdez rodriguez MD 08/04/2015 Persistent insomnia Chronic Disease Follow-up with Valdez rodriguez MD 08/04/2015 Thoracic radiculopathy Chronic Disease Follow-up with Valdez Stephens MD 08/04/2015 Type 2 diabetes mellitus with complication Chronic Dis ease Follow-up with Valdez Stephens MD 08/04/2015 Vitamin D deficiency Chronic Disease Follow-up with Valdez wong MD 08/04/2015 Assess diabetes mellitus with peripheral circulatory d isorder Chronic Disease Follow-up with Valdez Stephens MD 04/21/2015 Assess diabetes with neurological complications Chroni c Disease Follow-up with Valdez Stephens MD 04/21/2015 Assess essential hypertension Chronic Disease Follow-up with Valdez Stephens MD 04/21/2015 Assess hypertensive heart disease Chronic Disease Foll ow-up with Valdez Stephens MD 04/21/2015 Assess type 2 diabetes mellitus Chronic Disease Follow-up wi th Valdez Stephens MD 04/21/2015 Cellulitis right second toe swollen and red around nail past week- soaks at home. Will add bactrim ds bid x 7 days;; call us or dr post if not getting better Chronic Disease Follow-up with Valdez Stephens MD 2015 No long-term use of insulin Chronic Disease Follow-up with Robbi Stephens MD 04/21/2015 Anemia Hospital Follow-up with Valdez Stephens MD 03/08/2015 Assessment of shortness of breath Hospital Follow-up with Josue Stephens MD 03/08/2015 Atrial fibrillation and flutter Hospital Follow-up with Valdez Stephens MD 03/08/2015 Complex regional pain syndrome type I of the [facility] Hospital Follow-up with Valdez Stephens MD 03/08/2015 Constipation Hospital Follow-up with Valdez Stephens MD 03/08/2015 Emphysema Hospital Follow-up with Valdez Stephens MD 03/08/2015 Generalized anxiety disorder Hospital Follow-up with Valdez gleason MD 03/08/2015 Hyperlipidemia Hospital Follow-up with Valdez Stephens MD 03/08/2015 Hypertension Hospital Follow-up with Valdez Stephens MD 03/08/2015 Nicotine dependence Hospital Follow-up with Valdez Stephens MD 03/08/2015 Persistent insomnia Hospital Follow-up with Valdez Stephens MD 03/08/2015 Thoracic radiculopathy Hospital Follow-up with Valdez Stephens MD 03/08/2015 Type 2 diabetes mellitus with complication Hospital Fo llow-up with Valdez Stephens MD 03/08/2015 Vitamin D deficiency Hospital Follow-up with Valdez Zepeda 03/08/2015 Anemia Chronic Disease Follow-up with Valdez rodriguez MD 01/15/2015 Atrial fibrillation and flutter Chronic Disease Follow-up wi Valdez Stephens MD 01/15/2015 Constipation Chronic Disease Follow-up with Valdez rodriguez MD 01/15/2015 Emphysema Chronic Disease Follow-up with Valdez rodriguez MD 01/15/2015 Hyperlipidemia Chronic Disease Follow-up with Valdez rodriguez MD 01/15/2015 Hypertension Chronic Disease Follow-up with Valdez rodriguez MD 01/15/2015 Type 2 diabetes mellitus with complication Chronic Dis ease Follow-up with Valdez Stephens MD 01/15/2015 Abdominal bloating Follow-up Acute with Harish Lima huyen [employer] 01/04/2015 Acute upper respiratory infection Follow-up Acute with Harish Oliveiraanagan [employer] 01/04/2015 Anemia Follow-up Acute with Harish Lima ummagacedric [employer] 01/04/2015 Assessment of shortness of breath Follow-up Acute with Harish Oliveiraanagan [employer] 01/04/2015 Atrial fibrillation and flutter Follow-up Acute with Emiliano Oliveiraanagan [employer] 01/04/2015 Hypothyroidism Follow-up Acute with Harish salomonagacedric [employer] 01/04/2015 Urinary tract infection, geriatric presentation Follow -up Acute with Harish Oliveiraanagan [employer] 01/04/2015 Acute upper respiratory infection Walk-In with Harish flowers Martir [employer] 12/31/2014 Atrial fibrillation and flutter Walk-In with Harish Reyes suzanne Mcmahan [employer] 12/31/2014 Emphysema Walk-In with Harish Oliveiraanagan [employer] 12/31/2014 Nicotine dependence Walk-In with Harish Oliveiraanagan [employer] 12/31/2014 Urinary tract infection, geriatric presentation Walk-I n with Harish Felix Mcmahan [employer] 12/31/2014 Atrial fibrillation and flutter Chronic Disease Follow-up wi th Valdez Stephens MD 10/16/2014 Complex regional pain syndrome type I of the [place] Chronic Disease Follow- up with Valdez Stephens MD 10/16/2014 Constipation Chronic Disease Follow-up with Valdez rodriguez MD 10/16/2014 Emphysema Chronic Disease Follow-up with Valdez rodriguez MD 10/16/2014 Generalized anxiety disorder Chronic Disease Follow-up with Valdez Stephens MD 10/16/2014 Hyperlipidemia Chronic Disease Follow-up with Valdez rodriguez MD 10/16/2014 Hypertension Chronic Disease Follow-up with Valdez rodriguez MD 10/16/2014 Nicotine dependence Chronic Disease Follow-up with Valdez rodriguez MD 10/16/2014 Otitis externa itching- scratches it w samy pin- rt canal almost no wax but thickened tm and canal skin- be careful to keep EVERYTHING out of the canal! except the drops which will be twice a day for the next week Chronic Disease Follow-up with Valdez Stephens MD 10/16/2014 Persistent insomnia Chronic Disease Follow-up with Valdez rodriguez MD 10/16/2014 Thoracic radiculopathy Chronic Disease Follow-up with Valdez Stephens MD 10/16/2014 Type 2 diabetes mellitus with complication Chronic Dis ease Follow-up with Valdez Stephens MD 10/16/2014 Vitamin D deficiency Chronic Disease Follow-up with Valdez wong MD 10/16/2014 Atrial fibrillation and flutter Chronic Disease Follow-up wi Valdez Stephens MD 08/07/2014 Complex regional pain syndrome type I of the [place] Chronic Disease Follow- up with Valdez Stephens MD 08/07/2014 Constipation Chronic Disease Follow-up with Valdez rodriguez MD 08/07/2014 Emphysema Chronic Disease Follow-up with Valdez rodriguez MD 08/07/2014 Generalized anxiety disorder Chronic Disease Follow-up with Valdez Stephens MD 08/07/2014 Hyperlipidemia Chronic Disease Follow-up with Valdez rodriguez MD 08/07/2014 Hypertension Chronic Disease Follow-up with Valdez rodriguez MD 08/07/2014 Nicotine dependence Chronic Disease Follow-up with Valdez rodriguez MD 08/07/2014 Persistent insomnia Chronic Disease Follow-up with Valdez rodriguez MD 08/07/2014 Thoracic radiculopathy Chronic Disease Follow-up with Valdez Stephens MD 08/07/2014 Type 2 diabetes mellitus with complication Chronic Dis ease Follow-up with Valdez Stephens MD 08/07/2014 Vitamin D deficiency Chronic Disease Follow-up with Valdez wong MD 08/07/2014 Atrial fibrillation and flutter Hospital Follow-up with Valdez Stephens MD 05/08/2014 Complex regional pain syndrome type I of the [place] Hospital Follow-up with Valdez Stephens MD 05/08/2014 Constipation Hospital Follow-up with Valdez Stephens MD 05/08/2014 Dermatitis Hospital Follow-up with Valdez Stephens MD 05/08/2014 Emphysema Hospital Follow-up with Valdez Stephens MD 05/08/2014 Generalized anxiety disorder Hospital Follow-up with Valdez gleason MD 05/08/2014 Hyperlipidemia Hospital Follow-up with Valdez Stephens MD 05/08/2014 Hypertension Hospital Follow-up with Valdez Stephens MD 05/08/2014 Lip cellulitis and soft tissue of face Hospital Follo w-up with Valdez Stephens MD 05/08/2014 Nicotine dependence Hospital Follow-up with Valdez Stephens MD 05/08/2014 Persistent insomnia Hospital Follow-up with Valdez Stephens MD 05/08/2014 Thoracic radiculopathy Hospital Follow-up with Valdez Stephens MD 05/08/2014 Type 2 diabetes mellitus with complication Hospital Fo llow-up with Valdez Stephens MD 05/08/2014 Vitamin D deficiency Hospital Follow-up with Valdez Zepeda 05/08/2014 Atrial fibrillation and flutter Chronic Disease Follow-up wi Valdez Stephens MD 05/01/2014 Complex regional pain syndrome type I of the [place] Chronic Disease Follow- up with Valdez Stephens MD 05/01/2014 Constipation Chronic Disease Follow-up with Valdez rodriguez MD 05/01/2014 Dermatitis Chronic Disease Follow-up with Valdez rodriguez MD 05/01/2014 Emphysema Chronic Disease Follow-up with Valdez rodriguez MD 05/01/2014 Generalized anxiety disorder Chronic Disease Follow-up with Valdez Stephens MD 05/01/2014 Hyperlipidemia Chronic Disease Follow-up with Valdez rodriguez MD 05/01/2014 Hypertension Chronic Disease Follow-up with Valdez rodriguez MD 05/01/2014 Nicotine dependence Chronic Disease Follow-up with Valdez rodriguez MD 05/01/2014 Persistent insomnia Chronic Disease Follow-up with Valdez rodriguez MD 05/01/2014 Thoracic radiculopathy Chronic Disease Follow-up with Valdez Stephens MD 05/01/2014 Type 2 diabetes mellitus with complication Chronic Dis ease Follow-up with Valdez Stephens MD 05/01/2014 Vitamin D deficiency Chronic Disease Follow-up with Vadlez wong MD 05/01/2014 Chronic serous otitis media of both ears Walk-In with Harish Mcmahan NP 04/13/2014 Urinary tract infection Walk-In with Harish woodruff NP 04/13/2014 Pneumonia finishing levaquin today afte r 10days for right lower lobe atelectasis/pneumonia on xray. Still tires easily and gets cold feeling easily. Light crackles at bases of lungs. A: recovering from pneumonia. P: amox 500 bid x 10 days so total of 20 days on antibiotic for this. Continue walking and activity so you finish rebuilding your strength Walk-In with Valdez Stephens MD 02/20/2014 Reflex sympathetic dystrophy of the upper limb Walk-In with Valdez Stephens MD 02/20/2014 Thoracic radiculopathy Walk-In with Valdez Stephens MD 014 Pneumonia Walk-In with Arnol Gaston RPA-C 01/31 Sinusitis Walk-In with Arnol Gaston RPA-C 01/31 Atrial fibrillation and flutter AHR with Valdez Stephens MD Constipation AHR with Valdez Stephens MD 01/21/2014 Dermatitis AHR with Valdez Stephens MD 01/21/2014 Emphysema AHR with Valdez Stephens MD 01/21/2014 Generalized anxiety disorder AHR with Valdez Stephens MD 01/21 Hyperlipidemia AHR with Valdez Stephens MD 01/21/2014 Hypertension AHR with Valdez Stephens MD 01/21/2014 Nicotine dependence AHR with Valdez Stephens MD 01/21/2014 Persistent insomnia AHR with Valdez Stephens MD 01/21/2014 Reflex sympathetic dystrophy of the upper limb AHR with Valdez Stephens MD 01/21/2014 Thoracic radiculopathy AHR with Valdez Stephens MD 01/21/2014 Type 2 diabetes mellitus with complication AHR with Valdez wong MD 01/21/2014 Vitamin D deficiency AHR with Valdez Stephens MD 01/21/2014 Dermatitis rash lower legs started afte r shaving july 2013; itchy and scratched since and seemed infected and spread across lower abdomen as well. Better on abd since started benadryl 3 days ago and stopped hydrocodone same time as recalls also that rash came on after starting hydrocodone in july. Needs them cleared for upcoming Feb 03 surgery rectal prolapse. P: stay off hydrocodone, continue benadryl 25 mg no more than 12 a day. or 300 mg in a day. Keep open to air Chronic Disease Follow-up with Valdez Stephens MD 2013 Hyperlipidemia Chronic Disease Follow-up with Valdez rodriguez MD 01/14/2014 Hypertension Chronic Disease Follow-up with Valdez rodriguez MD 01/14/2014 Thoracic radiculopathy sched MRI;; cspi ne and thoracic spine. [facility] [place]. Eval pain and h/o golf ball size mass on MRI in mid thoracic spine around 1994 injury time. H/o fall out of tree onto that area age 15 but no eval at that time. Increased pain past 7 months Chronic Disease Follow-up with Valdez Stephens MD 01/14/2014 Cellulitis left lower leg Same Day Acute with Angela fisher [employer] 12/30/2013 Dermatitis Same Day Acute with Alma MERCEDES 12/19/2013 Atopic dermatitis Same Day Acute with Claire Carbajal [employer] 10/12/2013 Otitis externa Same Day Acute with Claire Carbajal NP 10/12/2013 Emphysema Chronic Disease Follow-up with Valdez rodriguez MD 08/15/2013 Hyperlipidemia Chronic Disease Follow-up with Valdez rodriguez MD 08/15/2013 Hypertension Chronic Disease Follow-up with Valdez rodriguez MD 08/15/2013 Hypothyroidism controlled on 25 mcg daily levothyroxi ne Chronic Disease Follow- up with Valdez Stephens MD 08/15/2013 Nicotine dependence Chronic Disease Follow-up with Valdez rodriguez MD 08/15/2013 Persistent insomnia Chronic Disease Follow-up with Valdez rodriguez MD 08/15/2013 Reflex sympathetic dystrophy of the upper limb Chronic Disease Follow-up with Valdez Stephens MD 08/15/2013 Type 2 diabetes mellitus with complication Chronic Dis ease Follow-up with Valdez Stephens MD 08/15/2013 Sinusitis / Shingles left neck area M Same Day with Irena Bush [employer] 07/14/2013 Chronic bronchitis with acute exacerbation M Same Day with Katya iSmon [employer] 12/03/2012 Dysphagia ; abdominal pain. Continues w ith weight loss--15lbs to 148lbs with normal decreased intake and exercise. Will check chest xray and abdominal images for pancreatic origin, etc Diabetes Follow-up with Valdez Stephens MD 11/13/2012 Emphysema Diabetes Follow-up with Valdez Stephens MD 11/13/2012 Hypertension Diabetes Follow-up with Valdez Stephens MD 11/13/2012 Nicotine dependence ; will keep working on helping her get off cigarrettes Diabetes Follow-up with Valdez Stephens MD 11/13/2012 Routine general medical exam at a health care facility Diabetes Follow-up with Valdez Stephens MD 11/13/2012 Type 2 diabetes mellitus with complication ; A1C 6.9. Good Control Diabetes Follow-up with Valdez Stephens MD 11/13/2012 Vitamin D deficiency Diabetes Follow-up with Valdez Zepeda 11/13/2012 Candidiasis M Same Day with Solange Bennett NP 013 Hemorrhoids M Same Day with Solange Bennett NP 013 Hyperlipidemia 30 minutes with Valdez Stephens MD 013 Reflex sympathetic dystrophy of the upper limb 30 minutes wi th Valdez Stephens MD 05/17/2012 Type 2 diabetes mellitus with complicati on add second 10 mg glyburide for 20/day and decrease metformin to 500 bid from 1000 bid adding repaglinide (prandin) 0.5 mg tid as aic 9.5 30 minutes with Valdez Stephens MD 05/17/2012 Bronchitis M Same Day with Bettye Randall NP 013 Exanthem M Same Day with Harish MERCEDES 03/16 Generalized anxiety disorder 45 min spe nt with pt on eval and plan of care stress management encouraged-- start venlafaxine as below-- M Same Day with Harish MERCEDES 03/16/2012 Nicotine dependence risks, eval, options discussed-- M Same Day with Harish MERCEDES 03/16/2012 Psoriasis coverage as below, watch triggers-- conside r derm if not resolving-- M Same Day with Harish MERCEDES 03/16/2012 Type 2 diabetes mellitus with complicati on advised importance of watching sugars with steroid cream- and optimal sugars to promote healing-- M Same Day with Harish MERCEDES 03/16/2012 Otitis externa, bilat. Cellulitis M Same Day with Jalen Angel MD 02/05/2012 Acute bronchitis M Same Day with Harish patel [employer] 01/15/2012 Emphysema M Same Day with Harish patel NP 01/15/2012 Bronchitis M Same Day with Claire Carbajal [employer] 12/31 Gastritis vomiting episodes at least mo nthly x 12 months. No recent endoscopy so GI. Dr zhao did it last so ref there M Same Day with Valdez Stephens MD 12/11/2011 Otitis externa got better w polymyxin d rops but now burning and drainage, canal scaley and red and wet, mildly swollen. P: ch to cipro drops and bactrim oral M Same Day with Valdez Stephens MD 12/11/2011 Dysphagia thickening at base of tongue- dr mckeon w/u underway- CT, endoscopy and laryngoscopy upcoming 12/12;;; cleared for that surgery 30 minutes with Valdez Stephens MD 12/01/2011 Otitis externa rt ear bothering her- fl uid and exudate and mildy tender. polymyxin qtts 30 minutes with Valdez Stephens MD 12/01/2011 Acute suppurative otitis media M Same Day with Harish Mcmahan [employer] 10/24/2011 Lump or mass in the right breast M Same Day with Harish Mcmahan [employer] 10/24/2011 No cerumen impaction M Same Day with Harish woodruff [employer] 10/24/2011 Normal routine history and physical AHR with Valdez Zepeda 05/19/2011 Palpitations now a total of 3 fainting spells, 2 upon standing and resulting in leg frx and sprains and 1 while lying - unresponsive x 15 min and groggy very briefly w no incontinence; bp was unreadable w home cuff during that. Lifelong h/o fainting spells of vasovagal pattern; thinks may be better now since stopping relafen- observe; consider recheck [facility] if recurrence AHR with Valdez Stephens MD 05/19/2011 Constipation 10 Minute Revist with Valdez Stephens MD 1 04/29/2010 Orthostatic hypotension lightheaded whe n gets up and walks nights- has fallen twice and broken ankle recentlly. MRI 2008 nl x ? mastoid air cell abnormality; will get CT brain with petrous bone eval.; d/c reglan and dec trazodone to 2 bid from 3 bid and dec diltiazem from 360 to 180 daily 10 Minute Revist with Valdez Stephens MD 02/27/2011 Type 2 diabetes mellitus with complication 10 Minute R evist with Valdez Stephens MD 02/27/2011 Closed fracture of the lateral malleolus has appt tomorrow am, cont air cast for now-- RICE untili then, motrin or tylenol for pain prn-- M Same Day with Harish MERCEDES 02/13/2011 Hypertension unable to do orthostatics to assess visi t today with ankle injury M Same Day with Harish MERCEDES 02/13/2011 Mild Cognitive Impairment labs were ord ered, she needs a walk test with saturations but unable to do due to ankle injury, She is also in a moderate amount of pain. She needs an MMSE but gets very defensive when discussing dizziness or fatigue or anything other than her ankle, so I think this would best be persued by her PCP Dr Valdez Stephens. I advised her daughter and that they should both come for visit to discuss their concerns. I would also consider sleep apnea workup or geriatric eval. Some of these symptoms are likely due to previous injury as well. Medication review is warranted at next visit-- M Same Day with Harish MERCEDES 02/13/2011 Nicotine dependence is aware of risks, refuses quit o ptions-- M Same Day with Harish MERCEDES 02/13/2011 Constipation helped by reglan;; try miralax and bene fiber M 20 Minutes with Valdez Stephens MD 02/08/2011 Emphysema M 20 Minutes with Valdez Stephens MD 02/08 Generalized anxiety disorder M 20 Minutes with Valdez Stephens MD 02/08/2011 Nicotine dependence M 20 Minutes with Valdez Stephens MD 02/08 Type 2 diabetes mellitus with complication M 20 Minutes with Valdez Stephens MD 02/08/2011 Hyperlipidemia ch to pravastatin 20 hs 10/10 due to $ $ 30 minutes with Valdez Stephens MD 10/26/2010 Hypertension lightheaded and faint on 10 mg not better on 5mg but ok once off;; inc diltiazem again to 3/day x 120 ER 30 minutes with Valdez Stephens MD 10/26/2010 Normal examination 30 minutes with Valdez Stephens MD 011 Persistent insomnia tapering self off lorazepam as not working even w 12 mg melatonin and ? contributing to dec sexual function. Zolpidem 10 mg written hs 30 minutes with Valdez Stephens MD 10/26/2010 Normal examination M 20 Minutes with Valdez Stephens MD 07/27 Palpitations ref to [place] [facility] e jay rapid heart beat and near faint, light headed appros 1 wk ago causing a fall M 20 Minutes with Valdez Stephens MD 07/27/2010 Normal routine history and physical M Office Visit - Long wi th Valdez Stephens MD 04/06/2010 Normal routine history and physical 30 minutes with Valdez wong MD 12/31/2009 Emphysema M Office Visit - Long with Valdez Stephens MD 09/01/2009 Generalized anxiety disorder M Office Visit - Long with Valdez Stephens MD 09/01/2009 Hypertension M Office Visit - Long with Valdez Stephens MD 09/01/2009 Normal examination M Office Visit - Long with Valdez Stephens MD 09/01/2009 Reflex sympathetic dystrophy of the upper limb M Offic e Visit - Long with Valdez Stephens MD 09/01/2009 Type II diabetes mellitus with complication M Office V isit - Long with Valdez Stephens MD 09/01/2009 Vitamin D deficiency M Office Visit - Long with Valdez steele MD 09/01/2009 Normal examination 30 minutes with Valdez Stephens MD 010 Persistent insomnia very resistant to t x;; used to sleep 10 hrs a day and bothers her that it is hard to get 5 hrs now-n more commonly 2-3 she says despite meds;; encouraged to try to do more at night and accept that longer sleep may not be possible for her without excessive med use 30 minutes with Valdez Stephens MD 05/21/2009 Normal examination [facility] with Valdez Stephens MD 02/12/2009 Urinary tract infection [facility]-Short with Valdez rodriguez MD 02/12/2009 Acute bronchitis M Office Visit - Short with Cullen khun DO 01/25/2009 Chronic obstructive pulmonary disease M Office Visit - Short with Cullen Blackwell DO 01/25/2009 Emphysema M Office Visit - Short with Cullen kuhn DO 01/25/2009 Mild Cognitive Impairment bloodwork; MRI; consider [facility] eval 30 minutes with Valdez Stephens MD 11/27/2008 Normal examination 30 minutes with Valdez Stephens MD 009 Normal routine history and physical 30 minutes with Valdez wong MD 11/27/2008 Normal examination M Office Visit - Short with Valdez steele MD 08/28/2008 Instructions Instructions not supported for this document typeNo Instructions Recorded Medical Equipment - Implanted Devices Includes: Current and historical DevicesNo Medical Equipment Recorded Medications Includes: Current and historical Medications Current Medications (continue as prescribed) Bisoprolol Fumarate 5 MG Oral Tablet 02/10/2020 - 08/08/2020 Provider: Harish Carbajal NP Diagnosis: Essential (primary) hypertension 1/2 of 5 mg once daily Montelukast Sodium 10 MG Oral Tablet 02/10/2020 Pro vider: Harish Carbajal NP Diagnosis: Other emphysema 1 every bedtime Cyclobenzaprine HCl 10 MG Oral Tablet 02/06/2020 - Provider: Cullen Blackwell DO Diagnosis: Complex regional zhou n syndrome I of upper limb, bilateral One tab two times a day as needed. metFORMIN HCl 500 MG Oral Tablet 02/06/2020 - 01/31/2021 Pro vider: Cullen Blackwell DO Diagnosis: Type 2 diabetes amie itus with unspecified complications increased to 2 bid Percocet 5-325 MG Oral Tablet 01/22/2020 Provider: Harish Carbajal NP Diagnosis: Low back pain four times a day use sparingly MDD=4 Zolpidem Tartrate 5 MG Oral Tablet 11/25/2019 Provi kassi: Cullen Blackwell DO Diagnosis: Primary insomnia 1 every bedtime PRN MDD=1 Pharmacy discontinue ambien CR 12 .5 mg Estradiol 0.1 MG/GM Vaginal Cream 10/10/2019 Provid er: Diagnosis: Silodosin 8 MG Oral Capsule 10/10/2019 Provider: Ana Laura Teague MD Diagnosis: one capsule after dinner Lansoprazole 30 MG Oral Capsule Delayed Release 10/10/2019 - 10/04/2020 Provider: Harish Carbajal NP Diagnosis: Left lower quadrant pain once a day Nystatin [id number] UNIT/GM External Powder 10/10/2019 Provider: Harish Carbajal NP Diagnosis: Dermatophytosis, uns pecified apply to affected area twice a day Atorvastatin Calcium 40 MG Oral Tablet 10/10/2019 - 10/05/19 21 Provider: Harish Carbajal NP Diagnosis: Hyperlipidemia, unsp ecified once a day glipiZIDE XL 10 MG Oral Tablet Extended Release 24 Hour 09/30 - 10/04/2020 Provider: Harish Carbajal NP Diagnosis: Type 2 diabetes amie itus with unspecified complications twice a day Levothyroxine Sodium 50 MCG Oral Tablet 10/10/2019 - 021 Provider: Harish Carbajal NP Diagnosis: Hypothyroidism, unsp ecified once a day Venlafaxine HCl ER 75 MG Oral Capsule Extended Release 24 Hour 10/10/2019 - 10/04/2020 Provider: Harish Carbajal NP Diagnosis: Anxiety disorder, un specified once a day D3-50 1.25 MG (86391 UT) Oral Capsule 07/24/2019 Pr ovider: Harish Carbajal NP Diagnosis: Vitamin D deficiency , unspecified Once a month Ventolin HFA 108 (90 Base) MCG/ACT Inhalation Aerosol Soluti on 07/24/2019 Provider: Harish Carbajal NP Diagnosis: Emphysema, unspecifi ed 2 puffs four times a day as needed for breathing OneTouch Ultra Blue In Vitro Strip 07/24/2019 Provi kassi: Harish Carbajal NP Diagnosis: Type 2 diabetes amie itus with unspecified complications TEST THREE TIMES A DAY AND NEEDED DIRECTED Xarelto 20 MG Oral Tablet 07/21/2019 Provider: Diagnosis: Dr. Carter (cardiology) Furosemide 40 MG Oral Tablet 07/21/2019 Provider: Diagnosis: [facility] Melatonin 10 MG Oral Tablet Disintegrating 07/21/2019 Provider: Diagnosis: pt states taking 13mg at bed time Metoclopramide HCl 10 MG Oral Tablet 06/09/2019 Pro vider: Cullen Blackwell DO Diagnosis: Type 2 diabetes amie itus with unspecified complications take 1 tablet po every 6 hrs , take 30 m inutse before meals and at bedtime prn only rarely Polyethylene Glycol 3350 Oral Powder 06/09/2019 Pro vider: Cullen Blackwell DO Diagnosis: Constipation, unspec ified as directed miralax 17 grams daily, adj usting up or down as needed to control constipation OTC Losartan Potassium 25 MG Oral Tablet 06/09/2019 Pro vider: Cullen Blackwell DO Diagnosis: Essential (primary) hypertension once daily- Pramipexole Dihydrochloride 0.125 MG Oral Tablet 06/09/2019 Provider: Cullen Blackwell DO Diagnosis: Restless legs syndro me 1-2 at bedtime prn Prandin 1 MG Oral Tablet 01/27/2019 Provider: Rubina Christian [employer] Diagnosis: as directed 1/2 tab (0.5mg) po tid before meals Albuterol Sulfate (2.5 MG/3ML)0.083% Inhalation Nebuli zation solution 08/14/2018 Provider: Valdez Stephens MD Diagnosis: Chronic obstructive pulmonary disease, unspecified as directed 1 vial via neb every 4 hours prn SOB or wheezing, per hospital discharge summary dated 10/24/2015 Dicyclomine HCl 20MG Oral Tablet 08/14/2018 Provide r: Valdez Stephens MD Diagnosis: Unspecified abdomina l pain 3 times a day for stomach cramps Benefiber Oral Powder 05/17/2018 Provider: Valdez Stephens MD Diagnosis: Constipation, unspec ified twice a day 1 tblspoon PRN CONSTIPATION otc Budesonide 0.5MG/2ML Inhalation Suspension 11/12/2017 Provider: Valdez Stephens MD Diagnosis: Chronic obstructive pulmonary disease, unspecified twice a day OneTouch UltraSoft Lancets Miscellaneous 07/13/2017 Provider: Valdez Stephens MD Diagnosis: Type 2 diabetes amie itus with unspecified complications as directed bid and prn Past Medications on file Percocet 5-325 MG Oral Tablet 12/23/2019 - 01/22/2020 Provid er: Harish Carbajal [employer] Diagnosis: Low back pain four times a day use sparingly MDD=4 Percocet 5-325 MG Oral Tablet 11/25/2019 - 12/23/2019 Provid er: Cullen Blackwell DO Diagnosis: Low back pain four times a day use sparingly MDD=4 Percocet 5-325 MG Oral Tablet 10/28/2019 - 11/25/2019 Provid er: Harish Carbajal NP Diagnosis: Low back pain four times a day use sparingly MDD=4 Fluticasone Propionate 50 MCG/ACT Nasal Suspension 0 - 12/09/2019 Provider: Harish Carbajal [employer] Diagnosis: Chronic sinusitis, u nspecified 2 sprays each nostril daily Amoxicillin-Pot Clavulanate 875-125 MG Oral Tablet 0 - 02/10/2020 Provider: Harish Carbajal NP Diagnosis: Chronic sinusitis, u nspecified twice a day - with food Bisoprolol Fumarate 5 MG Oral Tablet 10/10/2019 - 02/10/2020 Provider: Harish Carbajal NP Diagnosis: Essential (primary) hypertension 1/2 of 5 mg once daily Percocet 5-325 MG Oral Tablet 09/29/2019 - 10/28/2019 Provid er: Irena Bush [employer] Diagnosis: Low back pain four times a day use sparingly MDD=4 Due 08/02/2019 Cyclobenzaprine HCl 10 MG Oral Tablet 09/01/2019 - 0 Provider: Harish Carbajal NP Diagnosis: Complex regional zhou n syndrome I of upper limb, bilateral One tab two times a day as needed. Percocet 5-325 MG Oral Tablet 08/29/2019 - 09/29/2019 Provid er: Cullen Blackwell DO Diagnosis: Low back pain four times a day use sparingly MDD=4 Due 08/02/2019 Percocet 5-325 MG Oral Tablet 08/01/2019 - 08/29/2019 Provid er: Harish Carbajal NP Diagnosis: Low back pain four times a day use sparingly MDD=4 Due 08/02/2019 [facility] Miconazole 7 2% Vaginal Cream 07/25/2019 - 10/10/2019 Pr ovider: Harish Mcmahan NP Diagnosis: AAA BID Rapaflo 8 MG Oral Capsule 07/21/2019 - 10/10/2019 Provider: Diagnosis: prn Diflucan 150 MG Oral Tablet 07/21/2019 - 10/10/2019 Provider : Harish Mcmahan NP Diagnosis: take 1 now, and repeat in 10 -14 days, if needed. Flagyl 500 MG Oral Tablet 07/21/2019 - 10/10/2019 Provider: Harish Mcmahan NP Diagnosis: twice a day DO NOT DRINK ALCOHOL WITH THIS MEDICATION Percocet 5-325 MG Oral Tablet 07/03/2019 - 08/01/2019 Provid er: Harish Carbajal NP Diagnosis: Low back pain four times a day use sparingly MDD=4 Due 07/04/19 Percocet 5-325 MG OR TABS 07/03/2019 - 07/21/2019 Provider: Diagnosis: Low back pain use sparingly MDD=4 Due 07/04/19 Zolpidem Tartrate 5 MG Oral Tablet 06/17/2019 - 11/25/2019 P rovider: Cullen Blackwell DO Diagnosis: Primary insomnia 1 every bedtime PRN MDD=1 Pharmacy discontinue ambien CR 12 .5 mg traZODone HCl 50 MG Oral Tablet 06/09/2019 - 10/10/2019 Prov ider: Cullen Blackwell DO Diagnosis: Primary insomnia 1-2 at bedtime as needed- can use to replace zolpidem Bisoprolol Fumarate 5 MG Oral Tablet 06/09/2019 - 10/10/2019 Provider: Cullen Blackwell DO Diagnosis: Essential (primary) hypertension 1/2 of 5 mg once daily metFORMIN HCl 500 MG Oral Tablet 06/09/2019 - 02/06/2020 Pro vider: Cullen Blackwell DO Diagnosis: Type 2 diabetes amie itus with unspecified complications increased to 2 bid Cyclobenzaprine HCl 10 MG Oral Tablet 06/09/2019 - 0 Provider: Cullen Blackwell DO Diagnosis: Complex regional zhou n syndrome I of upper limb, bilateral twice a day one tablet BID PRN Percocet 5-325 MG Oral Tablet 06/03/2019 - 07/24/2019 Provid er: Cullen Blackwell DO Diagnosis: Low back pain Use four times a day use springly. MDD=4 Due 06/05/19 Cyclobenzaprine HCl 10 MG Oral Tablet 05/27/2019 - 0 Provider: Harish Carbajal NP Diagnosis: Type 2 diabetes amie itus with other specified complication twice a day one tablet BID PRN Percocet 5-325 MG Oral Tablet 05/06/2019 - 06/03/2019 Provid er: Cullen Blackwell DO Diagnosis: Low back pain Use four times a day use springly. MDD=4 Percocet 5-325 MG Oral Tablet 04/07/2019 - 05/06/2019 Provid er: Cullen Blackwell DO Diagnosis: Low back pain Use four times a day use springly. MDD=4 metroNIDAZOLE 500 MG Oral Tablet 03/31/2019 - 07/21/2019 Pro vider: Talita Shaben [employer] Diagnosis: twice a day Fluconazole 150 MG Oral Tablet 03/28/2019 - 07/21/2019 Provi kassi: Harish Carbajal [employer] Diagnosis: Acute vaginitis 1 tab once Percocet 5-325 MG Oral Tablet 03/07/2019 - 04/07/2019 Provid er: Cullen Blackwell DO Diagnosis: Low back pain Use four times a day use springly. MDD=4 Cyclobenzaprine HCl 10 MG Oral Tablet 02/20/2019 - 0 Provider: Cullen Blackwell DO Diagnosis: Type 2 diabetes amie itus with other specified complication twice a day one tablet BID PRN Cefuroxime Axetil 500 MG Oral Tablet 02/13/2019 - 06/23/2019 Provider: Cullen Blackwell DO Diagnosis: Acute bronchitis, un specified twice a day - predniSONE 10 MG Oral Tablet 02/13/2019 - 03/28/2019 Provide r: Cullen Blackwell DO Diagnosis: 3 for 3 days then 2 for 3 days then 1 for 3 days Percocet 5-325 MG Oral Tablet 02/07/2019 - 03/07/2019 Provid er: Cullen Blackwell DO Diagnosis: Low back pain Use four times a day use springly. MDD=4 Cefuroxime Axetil 500 MG Oral Tablet 01/30/2019 - 02/13/2019 Provider: Cullen Blackwell DO Diagnosis: Acute bronchitis, un specified twice a day - predniSONE 10 MG Oral Tablet 01/30/2019 - 03/28/2019 Provide r: Cullen Blackwell DO Diagnosis: Other emphysema as directed 3 for 3 days then 2 for 3 days then 1 for 3 days Fluticasone Propionate 50 MCG/ACT Nasal Suspension - 10/10/2019 Provider: Cullen Blackwell DO Diagnosis: Dizziness and giddin ess 2 sprays each nostril daily Percocet 5-325 MG Oral Tablet 01/09/2019 - 02/07/2019 Provid er: Cullen Blackwell DO Diagnosis: Low back pain Use four times a day use springly. MDD=4 Ventolin HFA 108 (90 Base) MCG/ACT Inhalation Aerosol Solution 01/01/2019 - 07/24/2019 Provider: Irena Bush [employer] Diagnosis: Emphysema, unspecifi ed 2 puffs four times a day as needed for breathing Percocet 5-325MG Oral Tablet 12/13/2018 - 01/09/2019 Provide r: Cullen Blackwell DO Diagnosis: Low back pain Use four times a day use . MDD=4 Lansoprazole 30MG Oral Capsule Delayed Release 12/03/2018 - 10/10/2019 Provider: Cullen Blackwell DO Diagnosis: Left lower quadrant pain once a day Levothyroxine Sodium 50MCG Oral Tablet 12/03/2018 - 10/10/19 20 Provider: Cullen Blackwell DO Diagnosis: Hypothyroidism, unsp ecified once a day Venlafaxine HCl ER 75MG Oral Capsule Extended Release 24 Hour 12/03/2018 - 10/10/2019 Provider: Cullen Blackwell DO Diagnosis: Anxiety disorder, un specified once a day Furosemide 40MG Oral Tablet 12/03/2018 - 07/21/2019 Provider : Diagnosis: Furosemide 20MG Oral Tablet 12/03/2018 - 12/03/2018 Provider : Diagnosis: jennifer santos D/C summary dated 09/13/18 [facility] Melatonin 10MG Oral Tablet Disintegrating 12/03/2018 - 0 07/21/2019 Provider: Diagnosis: pt states taking 13mg at bed time Atorvastatin Calcium 40MG Oral Tablet 12/03/2018 - 0 Provider: Cullen Blackwell DO Diagnosis: Hyperlipidemia, unsp ecified once a day metFORMIN HCl 500MG Oral Tablet 12/03/2018 - 06/09/2019 Prov ider: Cullen Blackwell DO Diagnosis: Type 2 diabetes amie itus with unspecified complications TAKE ONE TABLET BY MOUTH IN THE MORNING AND INCREASE TO TWO TABLET BEFORE DINNER glipiZIDE XL 10MG Oral Tablet Extended Release 24 Hour 12/03 - 10/10/2019 Provider: Cullen Blackwell DO Diagnosis: Type 2 diabetes amie itus with unspecified complications twice a day Percocet 5-325MG Oral Tablet 11/14/2018 - 12/13/2018 Provide r: Cullen Blackwell DO Diagnosis: Low back pain Use four times a day use . MDD=4 Zolpidem Tartrate 5MG Oral Tablet 11/12/2018 - 06/17/2019 Pr ovider: Cullen Blackwell DO Diagnosis: Primary insomnia 1 every bedtime PRN MDD=1 Pharmacy discontinue ambien CR 12 .5 mg Zolpidem Tartrate 5 MG OR TABS 11/12/2018 - 11/14/2018 Provi kassi: Diagnosis: Primary insomnia PRN MDD=1 Pharmacy discontinue ambien CR 12.5 mg Cyclobenzaprine HCl 10MG Oral Tablet 10/28/2018 - 02/20/2019 Provider: Harish Carbajal NP Diagnosis: Type 2 diabetes amie itus with other specified complication twice a day one tablet BID PRN Percocet 5-325 MG OR TABS 10/18/2018 - 11/12/2018 Provider: Diagnosis: Low back pain Use four times a day use springly. MDD=4 Percocet 5-325MG Oral Tablet 10/18/2018 - 11/14/2018 Provide r: Harish Carbajal NP Diagnosis: Low back pain Use four times a day use springly. MDD=4 Percocet 5-325MG Oral Tablet 09/18/2018 - 11/12/2018 Provide r: Valdez Stephens MD Diagnosis: Low back pain four times a day use sparingly MDD4 due 09/18/18 Cefuroxime Axetil 500MG Oral Tablet 09/16/2018 - 12/03/2018 Provider: Diagnosis: [facility] Nicotine 21MG/24HR Transdermal Patch 24 Hour 09/16/2018 - 12/03/2018 Provider: Diagnosis: [facility] Melatonin 10MG Oral Tablet Disintegrating 09/16/2018 - 0 12/03/2018 Provider: Diagnosis: pt states taking 13mg at bed time Furosemide 20MG Oral Tablet 09/16/2018 - 12/03/2018 Provider : Diagnosis: per D/C summary dated 09/13/18 guaiFENesin ER 600MG Oral Tablet Extended Release 12 H our 09/16/2018 - 12/03/2018 Provider: Diagnosis: Furosemide 20MG Oral Tablet 09/16/2018 - 09/16/2018 Provider : Diagnosis: D3-50 [id number] Oral Capsule 09/12/2018 - 07/24/2019 Provide r: Cullen Blackwell DO Diagnosis: Vitamin D deficiency , unspecified Once a month Rapaflo 8MG Oral Capsule 08/14/2018 - 07/21/2019 Provider: Diagnosis: prn Estradiol 0.1MG/GM Vaginal Cream 08/14/2018 - 07/21/2019 Pro vider: Diagnosis: small dab vaginally Xarelto 20MG Oral Tablet 08/14/2018 - 07/21/2019 Provider: Diagnosis: Dr. Carter (cardiology) Bactrim DS 800-160MG Oral Tablet 08/14/2018 - 09/10/2018 Pro vider: Valdez Stephens MD Diagnosis: Chronic sinusitis, u nspecified twice a day Pramipexole Dihydrochloride 0.125MG Oral Tablet 08/14/2018 - 06/09/2019 Provider: Valdez Stephens MD Diagnosis: Restless legs syndro me once a day before bed PRN Ventolin HFA 108 (90 Base)MCG/ACT Inhalation Aerosol S olution 08/14/2018 - 01/01/2019 Provider: Valdez Stephens MD Diagnosis: Emphysema, unspecifi ed 2 puffs four times a day as needed for breathing OneTouch Ultra Blue In Vitro Strip 08/14/2018 - 07/24/2019 P rovider: Valdez Stephens MD Diagnosis: Type 2 diabetes amie itus with unspecified complications TEST THREE TIMES A DAY AND NEEDED DIRECTED Metoclopramide HCl 10MG Oral Tablet 08/14/2018 - 06/09/2019 Provider: Valdez Stephens MD Diagnosis: Type 2 diabetes amie itus with unspecified complications take 1 tablet po every 6 hrs , take 30 m inutse before meals and at bedtime prn only rarely metFORMIN HCl 500MG Oral Tablet 08/14/2018 - 12/03/2018 Prov ider: Valdez Stephens MD Diagnosis: Type 2 diabetes amie itus with unspecified complications TAKE ONE TABLET BY MOUTH IN THE MORNING AND INCREASE TO TWO TABLET BEFORE DINNER glipiZIDE XL 10MG Oral Tablet Extended Release 24 Hour 08/14 - 12/03/2018 Provider: Valdez Stephens MD Diagnosis: Type 2 diabetes amie itus with unspecified complications twice a day Losartan Potassium 25MG Oral Tablet 08/14/2018 - 06/09/2019 Provider: Valdez Stephens MD Diagnosis: Essential (primary) hypertension once daily- replaces losartan hctz 50/12.5 Bisoprolol Fumarate 5MG Oral Tablet 08/14/2018 - 06/09/2019 Provider: Valdez Stephens MD Diagnosis: Essential (primary) hypertension 1/2 of 5 mg once daily Polyethylene Glycol 3350 Oral Powder 08/14/2018 - 06/09/2019 Provider: Valdez Stephens MD Diagnosis: Constipation, unspec ified as directed miralax 17 grams daily, adj usting up or down as needed to control constipation OTC Atorvastatin Calcium 40MG Oral Tablet 08/14/2018 - 9 Provider: Valdez Stephens MD Diagnosis: Hyperlipidemia, unsp ecified once a day Ambien CR 12.5MG Oral Tablet Extended Release 08/14/2018 - 0 11/12/2018 Provider: Valdez Stephens MD Diagnosis: Primary insomnia 1 every bedtime take 1 at bedtime Cyclobenzaprine HCl 10MG Oral Tablet 08/14/2018 - 10/28/2018 Provider: Valdez Stephens MD Diagnosis: Type 2 diabetes amie itus with other specified complication twice a day one tablet BID PRN Polyethylene Glycol 3350 Oral Powder 08/14/2018 - 08/14/2018 Provider: Valdez Stephens MD Diagnosis: Constipation, unspec ified as directed miralax 17 grams daily, adj usting up or down as needed to control constipation OTC Cyclobenzaprine HCl 10MG Oral Tablet 08/14/2018 - 08/14/2018 Provider: Valdez Stephens MD Diagnosis: Type 2 diabetes amie itus with other specified complication twice a day one tablet BID PRN Percocet 5-325MG Oral Tablet 08/14/2018 - 09/18/2018 Provide r: Valdez Stephens MD Diagnosis: Low back pain four times a day use sparingly MDD4 due 08/17/18 [facility] Melatonin 10MG Oral Tablet Disintegrating 08/14/2018 - 0 09/16/2018 Provider: Diagnosis: Albuterol Sulfate (2.5 MG/3ML)0.083% Inhalation Nebuli zation solution 07/30/2018 - 08/14/2018 Provider: Alma Mayers DO Diagnosis: Chronic obstructive pulmonary disease, unspecified as directed 1 vial via neb every 4 hours prn SOB or wheezing, per hospital discharge summary dated 10/24/2015 Furosemide 20MG Oral Tablet 07/29/2018 - 09/16/2018 Provider : Diagnosis: once daily per cardio Percocet 5-325MG Oral Tablet 07/17/2018 - 08/14/2018 Provide r: Valdez Stephens MD Diagnosis: Low back pain four times a day use sparingly MDD4 Losartan Potassium 25MG Oral Tablet 07/12/2018 - 08/14/2018 Provider: Valdez Stephens MD Diagnosis: once daily- replaces losartan hctz 50/12.5 Percocet 5-325MG Oral Tablet 06/18/2018 - 07/17/2018 Provide r: Irena Bush NP Diagnosis: Low back pain four times a day use sparingly MDD4 Losartan Potassium 25MG Oral Tablet 05/24/2018 - 06/18/2018 Provider: Diagnosis: once daily Losartan Potassium 25MG Oral Tablet 05/24/2018 - 07/12/2018 Provider: aVldez Stephens MD Diagnosis: once daily- replaces losartan hctz 50/12.5 Albuterol Sulfate (2.5 MG/3ML)0.083% Inhalation Nebuli zation solution 05/17/2018 - 07/30/2018 Provider: Valdez Stephens MD Diagnosis: Chronic obstructive pulmonary disease, unspecified as directed 1 vial via neb every 4 hours prn SOB or wheezing, per hospital discharge summary dated 10/24/2015 Fluticasone Propionate 50MCG/ACT Nasal Suspension 05/17/2018 - 01/30/2019 Provider: Valdez Stephens MD Diagnosis: 2 sprays each nostril daily Dicyclomine HCl 20MG Oral Tablet 05/17/2018 - 08/14/2018 Pro vider: Valdez Stephens MD Diagnosis: Unspecified abdomina l pain 3 times a day for stomach cramps Bisoprolol Fumarate 5MG Oral Tablet 05/17/2018 - 08/14/2018 Provider: Valdez Stephens MD Diagnosis: Essential (primary) hypertension 1/2 of 5 mg once daily GlipiZIDE XL 10MG Oral Tablet, extended-release 24 hour 05/03 - 08/14/2018 Provider: Valdez Stephens MD Diagnosis: Type 2 diabetes amie itus with unspecified complications twice a day MetFORMIN HCl 500MG Oral Tablet 05/17/2018 - 08/14/2018 Prov ider: Valdez Stephens MD Diagnosis: Type 2 diabetes amie itus with unspecified complications TAKE ONE TABLET BY MOUTH IN THE MORNING AND INCREASE TO TWO TABLET BEFORE DINNER Metoclopramide HCl 10MG Oral Tablet 05/17/2018 - 08/14/2018 Provider: Valdez Stephens MD Diagnosis: Type 2 diabetes amie itus with unspecified complications take 1 tablet po every 6 hrs , take 30 m inutse before meals and at bedtime prn only rarely Percocet 5-325MG Oral Tablet 05/17/2018 - 06/18/2018 Provide r: Valdez Stephens MD Diagnosis: Low back pain four times a day use sparingly MDD4 Ventolin HFA 108 (90 Base)MCG/ACT Inhalation Aerosol, solution 05/17/2018 - 08/14/2018 Provider: Valdez Stephens MD Diagnosis: Emphysema, unspecifi ed 2 puffs four times a day as needed for breathing Polyethylene Glycol 3350 Oral Powder 05/17/2018 - 08/14/2018 Provider: Valdez Stephens MD Diagnosis: Constipation, unspec ified as directed miralax 17 grams daily, adj usting up or down as needed to control constipation OTC Atorvastatin Calcium 40MG Oral Tablet 05/17/2018 - 9 Provider: Valdez Stephens MD Diagnosis: Hyperlipidemia, unsp ecified once a day Estradiol 0.1MG/GM Vaginal Cream 05/17/2018 - 08/14/2018 Pro vider: Diagnosis: small dab vaginally Xarelto 20MG Oral Tablet 05/17/2018 - 08/14/2018 Provider: Diagnosis: Dr. Carter (cardiology) Rapaflo 8MG Oral Capsule, conventional 05/17/2018 - 08/15/19 19 Provider: Diagnosis: prn [facility] Melatonin 10MG Oral Tablet Disintegrating 05/17/2018 - 0 08/14/2018 Provider: Diagnosis: Cyclobenzaprine HCl 10MG Oral Tablet 05/08/2018 - 08/14/2018 Provider: Valdez Stephens MD Diagnosis: Type 2 diabetes amie itus with other specified complication twice a day one tablet BID PRN Cyclobenzaprine HCl 10 MG OR TABS 05/08/2018 - 05/17/2018 Pr ovider: Diagnosis: Type 2 diabetes amie itus with other specified complication one tablet BID PRN Lansoprazole 30MG Oral Capsule Delayed Release 04/29/2018 - 12/03/2018 Provider: Valdez Stephens MD Diagnosis: Left lower quadrant pain once a day Levothyroxine Sodium 50MCG Oral Tablet 04/29/2018 - 12/04/19 19 Provider: Valdez Stephens MD Diagnosis: Hypothyroidism, unsp ecified once a day Metoclopramide HCl 10MG Oral Tablet 04/29/2018 - 05/17/2018 Provider: Valdez Stephens MD Diagnosis: Type 2 diabetes amie itus with unspecified complications take 1 tablet po every 6 hrs , take 30 m inutse before meals and at bedtime prn only rarely Venlafaxine HCl ER 75MG Oral Capsule Extended Release 24 Hour 04/29/2018 - 12/03/2018 Provider: Valdez Stephens MD Diagnosis: Anxiety disorder, un specified once a day Ambien CR 12.5MG Oral Tablet Extended Release 04/29/2018 - 0 08/14/2018 Provider: Valdez Stephens MD Diagnosis: Primary insomnia 1 every bedtime take 1 at bedtime Percocet 5-325MG Oral Tablet 04/23/2018 - 05/17/2018 Provide r: Alma MERCEDES Diagnosis: Low back pain four times a day use sparingly MDD4 Percocet 5-325MG Oral Tablet 2018 - 04/23/2018 Provide r: Tori COVARRUBIASP Diagnosis: Low back pain four times a day use sparingly MDD4 Losartan Potassium-HCTZ 50-12.5MG Oral Tablet 02/27/2018 - 0 09/16/2018 Provider: Diagnosis: once dialy per cardio Bisoprolol Fumarate 5MG Oral Tablet 02/27/2018 - 08/14/2018 Provider: Diagnosis: 1/2 tab daily per cardio Percocet 5-325MG Oral Tablet 02/26/2018 - 2018 Provide r: Jalen Angel MD Diagnosis: Low back pain four times a day use sparingly MDD4 Cyclobenzaprine HCl 5 MG OR TABS 01/23/2018 - 05/08/2018 Pro vider: Diagnosis: Complex regional zhou n syndrome I of left upper limb 1-2 BID/PRN sparingly Percocet 5-325MG Oral Tablet 01/23/2018 - 02/26/2018 Provide r: Valdez Stephens MD Diagnosis: Low back pain four times a day use sparingly Cyclobenzaprine HCl 5MG Oral Tablet 01/23/2018 - 05/08/2018 Provider: Valdez Stephens MD Diagnosis: Complex regional zhou n syndrome I of left upper limb as directed 1-2 BID/PRN sparingly Percocet 5-325MG Oral Tablet 12/20/2017 - 01/23/2018 Provide r: Valdez Stephens MD Diagnosis: Low back pain four times a day use sparingly Percocet 5-325 MG OR TABS 12/20/2017 - 01/23/2018 Provider: Diagnosis: Low back pain use sparingly Prandin 1MG Oral Tablet 12/13/2017 - 01/27/2019 Provider: Irena Bush NP Diagnosis: as directed 1/2 tab (0.5mg) po tid before meals [facility] Melatonin 10MG Oral Tablet Disintegrating 12/13/2017 - 0 05/17/2018 Provider: Diagnosis: GlipiZIDE XL 10MG Oral Tablet Extended Release 24 Hour 11/23 - 05/17/2018 Provider: Valdez Stephens MD Diagnosis: Type 2 diabetes amie itus with unspecified complications twice a day Prandin 1MG Oral Tablet 11/16/2017 - 11/16/2017 Provider: Diagnosis: 1/2 tab (0.5mg) po tid before meals Prandin 1MG Oral Tablet 11/16/2017 - 12/13/2017 Provider: Valdez Stephens MD Diagnosis: as directed 1/2 tab (0.5mg) po tid before meals Prandin 1MG Oral Tablet 11/16/2017 - 11/16/2017 Provider: Valdez Stephens MD Diagnosis: 1/2 tab 0.5mg tid before meals Xarelto 20MG Oral Tablet 11/12/2017 - 05/17/2018 Provider: Diagnosis: Dr. Carter (cardiology) Percocet 5-325MG Oral Tablet 11/12/2017 - 12/20/2017 Provide r: Valdez Stephens MD Diagnosis: Low back pain as directed four times per day use sparingly replaces morphi ne Percocet 5-325 MG OR TABS 11/12/2017 - 11/12/2017 Provider: Diagnosis: Low back pain four times per day use sparingly replaces morphine Cyclobenzaprine HCl 5MG Oral Tablet 11/12/2017 - 01/23/2018 Provider: Valdez Stephens MD Diagnosis: Complex regional zhou n syndrome I of left upper limb twice a day Misc. Devices Miscellaneous 11/12/2017 - 12/03/2018 Provider : Valdez Stephens MD Diagnosis: Low back pain PT 2 TIMES/ WK X 6 WEEKS Percocet 5-325MG Oral Tablet 11/12/2017 - 01/23/2018 Provide r: Valdez Stephens MD Diagnosis: Low back pain four times a day - use sparingly as needed for pain - replac es morphine Venlafaxine HCl ER 75MG Oral Capsule Extended Release 24 Hour 11/12/2017 - 04/29/2018 Provider: Valdez Stephens MD Diagnosis: Anxiety disorder, un specified once a day Ventolin HFA 108 (90 Base)MCG/ACT Inhalation Aerosol S olution 11/12/2017 - 05/17/2018 Provider: Valdez Stephens MD Diagnosis: Emphysema, unspecifi ed 2 puffs four times a day as needed for breathing Prandin 1MG Oral Tablet 11/12/2017 - 11/16/2017 Provider: Valdez Stephens MD Diagnosis: Emphysema, unspecifi ed Correct dose is 0.5 mg not 1 mg tid before meals- Metoclopramide HCl 10MG Oral Tablet 11/12/2017 - 04/29/2018 Provider: Valdez Stephens MD Diagnosis: Type 2 diabetes amie itus with unspecified complications take 1 tablet po every 6 hrs , take 30 m inutse before meals and at bedtime prn only rarely OneTouch Ultra Blue In Vitro Strip 11/12/2017 - 08/14/2018 P rovider: Valdez Stephens MD Diagnosis: Type 2 diabetes amie itus with unspecified complications TEST THREE TIMES A DAY AND NEEDED DIRECTED MetFORMIN HCl 500MG Oral Tablet 11/12/2017 - 05/17/2018 Prov ider: Valdez Stephens MD Diagnosis: Type 2 diabetes amie itus with unspecified complications TAKE ONE TABLET BY MOUTH IN THE MORNING AND INCREASE TO TWO TABLET BEFORE DINNER Losartan Potassium 50MG Oral Tablet 11/12/2017 - 02/27/2018 Provider: Valdez Stephens MD Diagnosis: Essential (primary) hypertension once a day d/c 25 mg Polyethylene Glycol 3350 Oral Powder 11/12/2017 - 05/17/2018 Provider: Valdez Stephens MD Diagnosis: Constipation, unspec ified as directed miralax 17 grams daily, adj usting up or down as needed to control constipation OTC Benefiber Oral Powder 11/12/2017 - 05/17/2018 Provider: Valdez Stephens MD Diagnosis: Constipation, unspec ified twice a day 1 tblspoon PRN CONSTIPATION otc Atorvastatin Calcium 40MG Oral Tablet 11/12/2017 - 9 Provider: Valdez Stephens MD Diagnosis: Hyperlipidemia, unsp ecified once a day Ambien CR 12.5MG Oral Tablet Extended Release 10/24/2017 - 0 04/23/2018 Provider: Valdez Stephens MD Diagnosis: Primary insomnia 1 every bedtime take 1 at bedtime (Do not fill until 7) Morphine Sulfate ER 15MG Oral Tablet Extended Release 2017 - 10/31/2017 Provider: Valdez Stephens MD Diagnosis: Cervicalgia twice a day MDD=2 Venlafaxine HCl ER 75MG Oral Capsule Extended Release 24 Hour 07/13/2017 - 11/12/2017 Provider: Valdez Stephens MD Diagnosis: Anxiety disorder, un specified once a day Venlafaxine HCl ER 75 MG OR CP24 07/13/2017 - 11/12/2017 Pro vider: Diagnosis: Anxiety disorder, un specified Dicyclomine HCl 20MG Oral Tablet 07/13/2017 - 05/17/2018 Pro vider: Valdez Stephens MD Diagnosis: Unspecified abdomina l pain 3 times a day Budesonide 0.5MG/2ML Inhalation Suspension 07/13/2017 - 10/31 Provider: Valdez Stephens MD Diagnosis: Chronic obstructive pulmonary disease, unspecified twice a day Ventolin HFA 108 (90 Base)MCG/ACT Inhalation Aerosol S olution 07/13/2017 - 11/12/2017 Provider: Valdez Stephens MD Diagnosis: Emphysema, unspecifi ed 2 puffs four times a day as needed for breathing Venlafaxine HCl ER 75MG Oral Tablet Extended Release 2 4 Hour 07/13/2017 - 07/13/2017 Provider: Valdez Stephens MD Diagnosis: Anxiety disorder, un specified once a day Morphine Sulfate ER 15MG Oral Tablet Extended Release 2017 - 10/08/2017 Provider: Valdez Stephens MD Diagnosis: Cervicalgia twice a day MDD=2 OneTouch Ultra Blue In Vitro Strip 07/13/2017 - 11/12/2017 Scott cifuentes: Valdez Stephens MD Diagnosis: Type 2 diabetes amie itus with unspecified complications TEST THREE TIMES A DAY AND NEEDED DIRECTED MetFORMIN HCl 500MG Oral Tablet 07/13/2017 - 11/12/2017 Prov ider: Valdez Stephens MD Diagnosis: Type 2 diabetes amie itus with unspecified complications TAKE ONE TABLET BY MOUTH IN THE MORNING AND INCREASE TO TWO TABLET BEFORE DINNER Levothyroxine Sodium 50MCG Oral Tablet 07/13/2017 - 04/29/19 19 Provider: Valdez Stephens MD Diagnosis: Hypothyroidism, unsp ecified once a day Lansoprazole 30MG Oral Capsule Delayed Release 07/13/2017 - 04/29/2018 Provider: Valdez Stephens MD Diagnosis: Left lower quadrant pain once a day Ferrous Sulfate 325 (65 Fe)MG Oral Tablet 07/13/2017 - 11/12 Provider: Valdez Stephens MD Diagnosis: Anemia, unspecified once a day D3-50 [id number] Oral Capsule 07/13/2017 - 09/12/2018 Provide r: Valdez Stephens MD Diagnosis: Vitamin D deficiency , unspecified Once a month Chantix Starting Month Jasen 0.5 MG X 11 &1 MG X 42 Oral Tablet 07/13/2017 - 09/16/2018 Provider: Valdez Stephens MD Diagnosis: Nicotine dependence, unspecified, uncomplicated twice a day Losartan Potassium 50MG Oral Tablet 07/13/2017 - 11/12/2017 Provider: Valdez Stephens MD Diagnosis: Essential (primary) hypertension once a day d/c 25 mg Bisoprolol Fumarate 5MG Oral Tablet 07/13/2017 - 05/17/2018 Provider: Valdez Stephens MD Diagnosis: Essential (primary) hypertension twice a day Albuterol Sulfate (2.5 MG/3ML)0.083% Inhalation Nebuli zation solution 07/13/2017 - 05/17/2018 Provider: Valdez Stephens MD Diagnosis: Chronic obstructive pulmonary disease, unspecified as directed 1 vial via neb every 4 hours prn SOB or wheezing, per hospital discharge summary dated 10/24/2015 Polyethylene Glycol 3350 Oral Powder 07/13/2017 - 11/12/2017 Provider: Valdez Stephens MD Diagnosis: Constipation, unspec ified as directed miralax 17 grams daily, adj usting up or down as needed to control constipation OTC Benefiber Oral Powder 07/13/2017 - 11/12/2017 Provider: Valdez Stephens MD Diagnosis: Constipation, unspec ified twice a day 1 tblspoon PRN CONSTIPATION otc Atorvastatin Calcium 40MG Oral Tablet 07/13/2017 - 8 Provider: Valdez Stephens MD Diagnosis: Hyperlipidemia, unsp ecified once a day Fluticasone Propionate 50MCG/ACT Nasal Suspension 07/13/2017 - 05/17/2018 Provider: Valdez Stephens MD Diagnosis: 2 sprays each nostril daily [facility] Melatonin 3MG Oral Tablet 07/13/2017 - 05/17/2018 Provid er: Valdez Stephens MD Diagnosis: 2 at bedtime OTC Morphine Sulfate ER 15MG Oral Tablet Extended Release 2017 - 07/13/2017 Provider: Valdez Stephens MD Diagnosis: Cervicalgia twice a day MDD=2 Cyclobenzaprine HCl 10MG Oral Tablet 06/13/2017 - 01/23/2018 Provider: Irena Bush [employer] Diagnosis: Complex regional zhou n syndrome I of left upper limb twice a day Morphine Sulfate ER 15MG Oral Tablet Extended Release 2017 - 06/27/2017 Provider: Valdez Stephens MD Diagnosis: Cervicalgia twice a day MDD=2 Ambien CR 12.5MG Oral Tablet Extended Release 04/25/2017 - 0 10/24/2017 Provider: Valdez Stephens MD Diagnosis: Primary insomnia 1 every bedtime take 1 at bedtime (Do not fill until 7) Albuterol Sulfate (2.5 MG/3ML)0.083% Inhalation Nebuli zation solution 04/13/2017 - 07/13/2017 Provider: Irena Bush [employer] Diagnosis: Chronic obstructive pulmonary disease, unspecified as directed 1 vial via neb every 4 hours prn SOB or wheezing, per hospital discharge summary dated 10/24/2015 Chantix 1MG Oral Tablet 04/11/2017 - 09/16/2018 Provider: Valdez Stephens MD Diagnosis: Nicotine dependence, unspecified, uncomplicated twice a day fill after finishes starter pack Chantix Starting Month Jasen 0.5 MG X 11 &1 MG X 42 Oral Tablet 04/11/2017 - 07/13/2017 Provider: Valdez Stephens MD Diagnosis: Nicotine dependence, unspecified, uncomplicated twice a day PredniSONE 5MG Oral Tablet 04/11/2017 - 05/09/2017 Provider: Vadlez Stephens MD Diagnosis: Chronic obstructive pulmonary disease, unspecified Take 4 daily for 4 days then 3 daily for 4 days then 2 daily for 4 days then 1 daily for 7 days disp #43 Azithromycin 250MG Oral Tablet 04/11/2017 - 04/21/2017 Provi kassi: Valdez Stephens MD Diagnosis: Chronic obstructive pulmonary disease, unspecified as directed 2 on day one then 1 daily for 4 days more MetFORMIN HCl 500MG Oral Tablet 04/11/2017 - 07/13/2017 Prov ider: Valdez Stephens MD Diagnosis: Type 2 diabetes amie itus with unspecified complications TAKE ONE TABLET BY MOUTH IN THE MORNING AND INCREASE TO TWO TABLET BEFORE DINNER Xarelto 20MG Oral Tablet 04/11/2017 - 11/12/2017 Provider: Diagnosis: Dr. Carter (cardiology) Spiriva HandiHaler 18MCG Inhalation Capsule 04/11/2017 - 04/2016 Provider: Diagnosis: daily Morphine Sulfate ER 15MG Oral Tablet Extended Release 2016 - 05/09/2017 Provider: Valdez Stephens MD Diagnosis: Cervicalgia twice a day MDD=2 Morphine Sulfate ER 15MG Oral Tablet Extended Release 2016 - 03/16/2017 Provider: Valdez Stephens MD Diagnosis: Cervicalgia twice a day MDD=2 Prandin 1MG Oral Tablet 01/15/2017 - 11/12/2017 Provider: Valdez Stephens MD Diagnosis: Emphysema, unspecifi ed Correct dose is 0.5 mg not 1 mg tid before meals- Fluticasone Propionate 50MCG/ACT Nasal Suspension 01/15/2017 - 07/13/2017 Provider: Valdez Stephens MD Diagnosis: 2 sprays each nostril daily [facility] Melatonin 3MG Oral Tablet 01/15/2017 - 07/13/2017 Provid er: Valdez Stephens MD Diagnosis: 2 at bedtime OTC Ventolin HFA 108 (90 Base)MCG/ACT Inhalation Aerosol S olution 01/15/2017 - 07/13/2017 Provider: Valdez Stephens MD Diagnosis: Emphysema, unspecifi ed 2 puffs four times a day as needed for breathing Venlafaxine HCl ER 75MG Oral Tablet Extended Release 2 4 Hour 01/15/2017 - 07/13/2017 Provider: Valdez Stephens MD Diagnosis: Anxiety disorder, un specified once a day Lansoprazole 30MG Oral Capsule Delayed Release 01/15/2017 - 07/13/2017 Provider: Valdez Stephens MD Diagnosis: Left lower quadrant pain once a day OneTouch UltraSoft Lancets Miscellaneous 01/15/2017 - 2017 Provider: Valdez Stephens MD Diagnosis: Type 2 diabetes amie itus with unspecified complications as directed bid and prn OneTouch Ultra Blue In Vitro Strip 01/15/2017 - 07/13/2017 Scott cifuentes: Valdez Stephens MD Diagnosis: Type 2 diabetes amie itus with unspecified complications TEST TWO TIMES A DAY AND NEEDED DIRECTED MetFORMIN HCl 500MG Oral Tablet 01/15/2017 - 04/11/2017 Prov ider: Valdez Stephens MD Diagnosis: Type 2 diabetes amie itus with unspecified complications TAKE ONE TABLET BY MOUTH IN THE MORNING AND ONE TABLET BEFORE DINNER FOR GLUCOSE CONTROL GlipiZIDE XL 10MG Oral Tablet Extended Release 24 Hour 01/15 - 11/23/2017 Provider: Valdez Stephens MD Diagnosis: Type 2 diabetes amie itus with unspecified complications twice a day Ferrous Sulfate 325 (65 Fe)MG Oral Tablet 01/15/2017 - 07/13 Provider: Valdez Stephens MD Diagnosis: Anemia, unspecified once a day Bentyl 20MG Oral Tablet 01/15/2017 - 12/03/2018 Provider: Valdez Stephens MD Diagnosis: Unspecified abdomina l pain twice a day prn abdominal cramps Polyethylene Glycol 3350 Oral Powder 01/15/2017 - 07/13/2017 Provider: Valdez Stephens MD Diagnosis: Constipation, unspec ified as directed miralax 17 grams daily, adj usting up or down as needed to control constipation OTC Benefiber Oral Powder 01/15/2017 - 07/13/2017 Provider: Valdez Stephens MD Diagnosis: Constipation, unspec ified twice a day 1 tblspoon PRN CONSTIPATION otc Atorvastatin Calcium 40MG Oral Tablet 01/15/2017 - 8 Provider: Valdez Stephens MD Diagnosis: Hyperlipidemia, unsp ecified once a day Albuterol Sulfate (2.5 MG/3ML)0.083% Inhalation Nebuli zation solution 01/15/2017 - 04/11/2017 Provider: Valdez Stephens MD Diagnosis: Chronic obstructive pulmonary disease, unspecified as directed 1 vial via neb every 4 hours prn SOB or wheezing, per hospital discharge summary dated 10/24/2015 Losartan Potassium 50MG Oral Tablet 01/15/2017 - 07/13/2017 Provider: Valdez Stephens MD Diagnosis: Essential (primary) hypertension once a day d/c 25 mg Bisoprolol Fumarate 5MG Oral Tablet 01/15/2017 - 07/13/2017 Provider: Valdez Stephens MD Diagnosis: Essential (primary) hypertension twice a day Xarelto 20MG Oral Tablet 01/15/2017 - 04/11/2017 Provider: Diagnosis: Dr. Carter (cardiology) Fluticasone Propionate 50MCG/ACT Nasal Suspension 01/15/2017 - 01/15/2017 Provider: Diagnosis: 2 sprays each nostril daily [facility] Melatonin 3MG Oral Tablet 01/15/2017 - 01/15/2017 Provid er: Diagnosis: OTC Metoclopramide HCl 10MG Oral Tablet 12/22/2016 - 11/12/2017 Provider: Harihs Mcmahan NP Diagnosis: Type 2 diabetes amie itus with unspecified complications take 1 tablet po every 6 hrs , take 30 m inutse before meals and at bedtime prn only rarely Cyclobenzaprine HCl 10MG Oral Tablet 12/11/2016 - 06/13/2017 Provider: Harish Mcmahan NP Diagnosis: Complex regional zhou n syndrome I of left upper limb twice a day Morphine Sulfate ER 15MG Oral Tablet Extended Release 2016 - 01/26/2017 Provider: Valdez Stephens MD Diagnosis: Cervicalgia twice a day MDD=2 OneTouch Ultra Blue In Vitro Strip 11/09/2016 - 01/15/2017 P rovider: Diane Gardner NP Diagnosis: Type 2 diabetes amie itus with unspecified complications TEST TWO TIMES A DAY AND NEEDED DIRECTED Xarelto 20MG Oral Tablet 11/06/2016 - 01/15/2017 Provider: Diagnosis: Dr. Carter (cardiology) [facility] Melatonin 3MG Oral Tablet 11/06/2016 - 01/15/2017 Provid er: Diagnosis: OTC Ambien CR 12.5MG Oral Tablet Extended Release 10/18/2016 - 0 04/25/2017 Provider: Valdez Stephens MD Diagnosis: Primary insomnia 1 every bedtime take 1 at bedtime (Do not fill until 7) Morphine Sulfate ER 15MG Oral Tablet Extended Release 2016 - 12/06/2016 Provider: Valdez Stephens MD Diagnosis: Cervicalgia twice a day MDD=2 Ventolin HFA 108 (90 Base)MCG/ACT Inhalation Aerosol S olution 09/11/2016 - 01/15/2017 Provider: Valdez Stephens MD Diagnosis: Emphysema, unspecifi ed 2 puffs four times a day as needed for breathing Levothyroxine Sodium 50MCG Oral Tablet 09/11/2016 - 07/14/19 18 Provider: Valdez Stephens MD Diagnosis: Hypothyroidism, unsp ecified once a day Lansoprazole 30MG Oral Capsule Delayed Release 09/11/2016 - 01/15/2017 Provider: Valdez Stephens MD Diagnosis: Left lower quadrant pain once a day MetFORMIN HCl 500MG Oral Tablet 09/11/2016 - 01/15/2017 Prov ider: Valdez Stephens MD Diagnosis: Type 2 diabetes amie itus with unspecified complications TAKE ONE TABLET BY MOUTH IN THE MORNING AND ONE TABLET BEFORE DINNER FOR GLUCOSE CONTROL GlipiZIDE XL 10MG Oral Tablet Extended Release 24 Hour 09/11 - 01/15/2017 Provider: Valdez Stephens MD Diagnosis: Type 2 diabetes amie itus with unspecified complications twice a day Ferrous Sulfate 325 (65 Fe)MG Oral Tablet 09/11/2016 - 01/15 Provider: Valdez Stephens MD Diagnosis: Anemia, unspecified once a day D3-50 [id number] Oral Capsule 09/11/2016 - 07/13/2017 Provide r: Valdez Stephens MD Diagnosis: Vitamin D deficiency , unspecified Once a month Losartan Potassium 50MG Oral Tablet 09/11/2016 - 01/15/2017 Provider: Valdez Stephens MD Diagnosis: Essential (primary) hypertension once a day d/c 25 mg Bisoprolol Fumarate 5MG Oral Tablet 09/11/2016 - 01/15/2017 Provider: Valdez Stephens MD Diagnosis: Essential (primary) hypertension twice a day Polyethylene Glycol 3350 Oral Powder 09/11/2016 - 01/15/2017 Provider: Valdez Stephens MD Diagnosis: Constipation, unspec ified as directed miralax 17 grams daily, adj usting up or down as needed to control constipation OTC Benefiber Oral Powder 09/11/2016 - 01/15/2017 Provider: Valdez Stephens MD Diagnosis: Constipation, unspec ified twice a day 1 tblspoon PRN CONSTIPATION otc Atorvastatin Calcium 40MG Oral Tablet 09/11/2016 - 7 Provider: Valdez Stephens MD Diagnosis: Hyperlipidemia, unsp ecified once a day Morphine Sulfate ER 15MG Oral Tablet Extended Release 2016 - 10/11/2016 Provider: Irena Bush NP Diagnosis: Cervicalgia twice a day MDD=2 Morphine Sulfate ER 15MG Oral Tablet Extended Release 2016 - 08/23/2016 Provider: Valdez Stephens MD Diagnosis: Cervicalgia twice a day MDD=2 Ceftin 500MG Oral Tablet 07/10/2016 - 09/11/2016 Provider: Harish Mcmahan [employer] Diagnosis: twice a day Bentyl 20MG Oral Tablet 05/31/2016 - 01/15/2017 Provider: Valdez Stephens MD Diagnosis: Unspecified abdomina l pain twice a day prn abdominal cramps Oxycodone-Acetaminophen 10-325MG Oral Tablet 05/31/2016 - Provider: Valdez Stephens MD Diagnosis: Radiculopathy, thora cic region twice a day prn sparingly replaces morphine 15 mg due for fi ll 06/13/16 Ferrous Sulfate 325 (65 Fe)MG Oral Tablet 05/31/2016 - 09/11 Provider: Valdez Stephens MD Diagnosis: Anemia, unspecified once a day Venlafaxine HCl ER 75MG Oral Tablet Extended Release 2 4 Hour 05/31/2016 - 01/15/2017 Provider: Valdez Stephens MD Diagnosis: Anxiety disorder, un specified once a day Losartan Potassium 50MG Oral Tablet 05/31/2016 - 09/11/2016 Provider: Valdez Stephens MD Diagnosis: Essential (primary) hypertension once a day d/c 25 mg Prandin 0.5MG Oral Tablet 05/31/2016 - 11/16/2017 Provider: Valdez Stephens MD Diagnosis: Type 2 diabetes amie itus with unspecified complications three times a day take 1 before each meal MetFORMIN HCl 500MG Oral Tablet 05/31/2016 - 09/11/2016 Prov ider: Valdez Stephens MD Diagnosis: Type 2 diabetes amie itus with unspecified complications TAKE ONE TABLET BY MOUTH IN THE MORNING AND ONE TABLET BEFORE DINNER FOR GLUCOSE CONTROL GlipiZIDE XL 10MG Oral Tablet Extended Release 24 Hour 05/31 - 09/11/2016 Provider: Valdez Stephens MD Diagnosis: Type 2 diabetes amie itus with unspecified complications twice a day Cyclobenzaprine HCl 10MG Oral Tablet 05/31/2016 - 12/11/2016 Provider: Valdez Stephens MD Diagnosis: Complex regional zhou n syndrome I of left upper limb twice a day Atorvastatin Calcium 40MG Oral Tablet 05/31/2016 - 7 Provider: Valdez Stephens MD Diagnosis: Hyperlipidemia, unsp ecified once a day Xarelto 20MG Oral Tablet 05/31/2016 - 11/06/2016 Provider: Diagnosis: Dr. Carter (cardiology) Fluticasone Propionate 50MCG/ACT Nasal Suspension 05/31/2016 - 01/15/2017 Provider: Diagnosis: 2 sprays each nostril daily [facility] Melatonin 3MG Oral Tablet 05/31/2016 - 11/06/2016 Provid er: Diagnosis: OTC Calcium + D3 [id number] Oral Tablet 05/31/2016 - 017 Provider: Diagnosis: 2 tabs once daily Morphine Sulfate ER 15MG Oral Tablet Extended Release 2016 - 07/10/2016 Provider: Valdez Stephens MD Diagnosis: Cervicalgia twice a day MDD=2 Ambien CR 12.5 MG Tablet Extended Release 05/01/2016 - 10/18 Provider: Harish Mcmahan NP Diagnosis: Primary insomnia 1 every bedtime take 1 at bedtime (Do not fill until 6) Macrobid 100 MG Capsule 04/27/2016 - 05/01/2016 Provider: Diagnosis: bid Morphine Sulfate ER 15 MG Tablet Extended Release 03/30/2016 - 05/17/2016 Provider: Irena Bush NP Diagnosis: Cervicalgia twice a day MDD=2 OneTouch Ultra Blue Strip 03/01/2016 - 11/09/2016 Provider: Valdez Stephens MD Diagnosis: Type 2 diabetes amie itus with unspecified complications TEST TWO TIMES A DAY AND NEEDED DIRECTED Morphine Sulfate ER 15 MG Tablet Extended Release 02/18/2016 - 03/30/2016 Provider: Valdez Stephens MD Diagnosis: Cervicalgia twice a day MDD=2 Spiriva HandiHaler 18 MCG Capsule 01/28/2016 - 09/11/2016 Pr ovider: Valdez Stephens MD Diagnosis: Chronic obstructive pulmonary disease, unspecified once a day Bisoprolol Fumarate 5 MG Tablet 01/28/2016 - 09/11/2016 Prov ider: Valdez Stephens MD Diagnosis: Essential (primary) hypertension twice a day Ventolin HFA 108 (90 Base) MCG/ACT Aerosol Solution 01/28/20 16 - 09/11/2016 Provider: Valdez Stephens MD Diagnosis: Emphysema, unspecifi ed 2 puffs four times a day as needed for breathing Polyethylene Glycol 3350 Powder 01/28/2016 - 09/11/2016 Prov ider: Valdez Stephens MD Diagnosis: Constipation, unspec ified as directed miralax 17 grams daily, adj usting up or down as needed to control constipation OTC Losartan Potassium 50 MG Tablet 01/28/2016 - 05/31/2016 Prov ider: Valdez Stephens MD Diagnosis: Essential (primary) hypertension once a day d/c 25 mg Lansoprazole 30 MG Capsule Delayed Release 01/28/2016 - 08/31 Provider: Valdez Stephens MD Diagnosis: Left lower quadrant pain once a day Ferrous Sulfate 325 (65 Fe) MG Tablet 01/28/2016 - 7 Provider: Valdez Stephens MD Diagnosis: Anemia, unspecified once a day D3-50 [id number] UNIT Capsule 01/28/2016 - 09/11/2016 Provider: Valdez Stephens MD Diagnosis: Vitamin D deficiency , unspecified Once a month GlipiZIDE XL 10 MG Tablet Extended Release 24 Hour 6 - 05/31/2016 Provider: Valdez Stephens MD Diagnosis: Type 2 diabetes amie itus with unspecified complications twice a day MetFORMIN HCl 500 MG Tablet 01/28/2016 - 05/31/2016 Provider : Valdez Stephens MD Diagnosis: Type 2 diabetes amie itus with unspecified complications TAKE ONE TABLET BY MOUTH IN THE MORNING AND ONE TABLET BEFORE DINNER FOR GLUCOSE CONTROL Atorvastatin Calcium 40 MG Tablet 01/28/2016 - 05/31/2016 Pr ovider: Valdez Stephens MD Diagnosis: Hyperlipidemia, unsp ecified once a day Fluticasone Propionate 50 MCG/ACT Suspension 01/28/2016 - Provider: Diagnosis: 2 sprays each nostril daily [facility] Melatonin 3 MG Tablet 01/28/2016 - 05/31/2016 Provider: Diagnosis: OTC Calcium + D3 600-200 MG-UNIT Tablet 01/28/2016 - 05/31/2016 Provider: Diagnosis: 2 tabs once daily Bisoprolol Fumarate 5 MG Tablet 01/26/2016 - 01/28/2016 Prov ider: Priyanka Rivera MD Diagnosis: [facility] Melatonin 3 MG Tablet 01/26/2016 - 01/28/2016 Provider: Diagnosis: OTC Levothyroxine Sodium 50 MCG Tablet 01/26/2016 - 09/11/2016 Scott cifuentes: Valdez Stephens MD Diagnosis: Hypothyroidism, unsp ecified once a day Levothyroxine Sodium 50 MCG OR TABS 01/26/2016 - 01/26/2016 Provider: Diagnosis: Cipro 250 MG Tablet 01/21/2016 - 01/26/2016 Provider: Diagnosis: bid per urgent care report Morphine Sulfate ER 15 MG Tablet Extended Release 12/29/2015 - 02/18/2016 Provider: Valdez Stephens MD Diagnosis: Cervicalgia twice a day MDD=2 Polyethylene Glycol 3350 Powder 12/03/2015 - 01/28/2016 Prov ider: Valdez Stephens MD Diagnosis: Constipation, unspec ified as directed miralax 17 grams daily, adj usting up or down as needed to control constipation OTC Morphine Sulfate ER 15 MG Tablet Extended Release 11/19/2015 - 12/29/2015 Provider: Valdez Stephens MD Diagnosis: Cervicalgia twice a day MDD=2 Albuterol Sulfate (2.5 MG/3ML) 0.083% Nebulization anita ution 11/10/2015 - 01/15/2017 Provider: Valdez Stephens MD Diagnosis: Chronic obstructive pulmonary disease, unspecified as directed 1 vial via neb every 4 hours prn SOB or wheezing, per hospital discharge summary dated 10/24/2015 Nicotine 21 MG/24HR Patch 24 Hour 11/10/2015 - 01/26/2016 Pr ovider: Valdez Stephens MD Diagnosis: Nicotine dependence, unspecified, uncomplicated once a day Losartan Potassium 50 MG Tablet 11/10/2015 - 01/28/2016 Prov ider: Valdez Stephens MD Diagnosis: Essential (primary) hypertension once a day d/c 25 mg Prandin 0.5 MG Tablet 11/10/2015 - 05/31/2016 Provider: Valdez Stephens MD Diagnosis: Type 2 diabetes amie itus with unspecified complications three times a day take 1 before each meal Metoclopramide HCl 10 MG Tablet 11/10/2015 - 12/22/2016 Prov ider: Valdez Stephens MD Diagnosis: Type 2 diabetes amie itus with unspecified complications take 1 tablet po every 6 hrs , take 30 m inutse before meals and at bedtime prn only rarely MetFORMIN HCl 500 MG Tablet 11/10/2015 - 01/28/2016 Provider : Valdez Stephens MD Diagnosis: Type 2 diabetes amie itus with unspecified complications TAKE ONE TABLET BY MOUTH IN THE MORNING AND ONE TABLET BEFORE DINNER FOR GLUCOSE CONTROL GlipiZIDE XL 10 MG Tablet Extended Release 24 Hour - 01/28/2016 Provider: Valdez Stephens MD Diagnosis: Type 2 diabetes amie itus with unspecified complications twice a day Cyclobenzaprine HCl 10 MG Tablet 11/10/2015 - 05/31/2016 Pro vider: Valdez Stephens MD Diagnosis: Complex regional zhou n syndrome I of left upper limb twice a day Atorvastatin Calcium 40 MG Tablet 11/10/2015 - 01/28/2016 Pr ovider: Valdez Stephens MD Diagnosis: Hyperlipidemia, unsp ecified once a day Ventolin HFA 108 (90 Base) MCG/ACT Aerosol Solution 11/10/19 - 01/28/2016 Provider: Valdez Stephens MD Diagnosis: Emphysema, unspecifi ed 2 puffs four times a day as needed for breathing Compressor/Nebulizer Miscellaneous 11/10/2015 - 02/10/2020 P rovider: Valdez Stephens MD Diagnosis: Emphysema, unspecifi ed Use 4 times a day for wheezing or trappi ng as needed disp neb with tubing and mask dx copd Fluticasone Propionate 50 MCG/ACT Suspension 11/10/2015 - Provider: Diagnosis: 2 sprays each nostril daily GNP Calcium 600 MG Tablet 11/10/2015 - 01/28/2016 Provider: Diagnosis: 2 tab every day - patient is holding for now EQ Multivitamin Gummies Tablet Chewable 11/10/2015 - 016 Provider: Diagnosis: 2 gummies in the evening [facility] Melatonin 5 MG Tablet 11/10/2015 - 01/26/2016 Provider: Diagnosis: 2 po qhs Xarelto 20 MG Tablet 11/10/2015 - 05/31/2016 Provider: Diagnosis: Dr. Carter (cardiology) Spiriva HandiHaler 18 MCG Capsule 11/10/2015 - 01/28/2016 Pr ovider: Diagnosis: Chronic obstructive pulmonary disease, unspecified place 1 capsule into inhaler and inhale once daily, per hospital discharge summary dated 10/24/2015 Albuterol Sulfate (2.5 MG/3ML) 0.083% Nebulization anita ution 11/10/2015 - 11/10/2015 Provider: Diagnosis: Chronic obstructive pulmonary disease, unspecified 1 vial via neb every 4 hours prn SOB or wheezing, per hospital discharge summary dated 10/24/2015 Symbicort 160-4.5 MCG/ACT Aerosol 11/10/2015 - 01/26/2016 Pr ovider: Diagnosis: Chronic obstructive pulmonary disease, unspecified Inhale 2 puffs twice a day, per hospital discharge summary d ated 10/24/2015 Nicotine 21 MG/24HR Patch 24 Hour 10/28/2015 - 11/10/2015 Pr ovider: Cullen Blackwell DO Diagnosis: Nicotine dependence, unspecified, uncomplicated once a day GNP Calcium 600 MG Tablet 10/28/2015 - 11/10/2015 Provider: Diagnosis: 2 tab every day - patient is holding for now Spiriva HandiHaler 18 MCG Capsule, conventional 10/28/2015 - 11/10/2015 Provider: Diagnosis: Chronic obstructive pulmonary disease, unspecified place 1 capsule into inhaler and inhale once daily, per hospital discharge summary dated 10/24/2015 PredniSONE 5 MG Tablet 10/28/2015 - 11/03/2015 Provider: Diagnosis: Chronic obstructive pulmonary disease, unspecified Prednisone taper,per hospital discharge summary dated 016 Symbicort 160-4.5 MCG/ACT Aerosol 10/28/2015 - 11/10/2015 Pr ovider: Diagnosis: Chronic obstructive pulmonary disease, unspecified Inhale 2 puffs twice a day, per hospital discharge summary d ated 10/24/2015 Albuterol Sulfate (2.5 MG/3ML) 0.083% Nebulization anita ution 10/28/2015 - 11/10/2015 Provider: Diagnosis: Chronic obstructive pulmonary disease, unspecified 1 vial via neb every 4 hours prn SOB or wheezing, per hospital discharge summary dated 10/24/2015 GNP Calcium 600 MG Tablet 10/22/2015 - 10/28/2015 Provider: Diagnosis: 2 tab every day Xarelto 20 MG Tablet 10/22/2015 - 11/10/2015 Provider: Diagnosis: Dr. Carter (cardiology) EQ Multivitamin Gummies Tablet Chewable 10/22/2015 - 016 Provider: Diagnosis: 2 gummies in the evening [facility] Melatonin 5 MG Tablet 10/22/2015 - 11/10/2015 Provider: Diagnosis: 2 po qhs Atorvastatin Calcium 40 MG Tablet 10/22/2015 - 10/28/2015 Pr ovider: Diagnosis: Hyperlipidemia, unsp ecified Fluticasone Propionate 50 MCG/ACT Suspension 10/22/2015 - Provider: Diagnosis: 2 sprays each nostril daily Ambien CR 12.5 MG Tablet Extended Release 10/20/2015 - 05/01 Provider: Cullen Blackwell DO Diagnosis: Primary insomnia 1 every bedtime take 1 at bedtime (Do not fill until 6) Morphine Sulfate ER 15 MG Tablet Extended Release 09/23/2015 - 11/19/2015 Provider: Valdez Stephens MD Diagnosis: Cervicalgia twice a day MDD=2 Atorvastatin Calcium 40 MG Tablet 08/06/2015 - 11/10/2015 Pr ovider: Valdez Stephens MD Diagnosis: Hyperlipidemia, unsp ecified once a day Atorvastatin Calcium 40 MG OR TABS 08/06/2015 - 10/22/2015 Scott nelader: Diagnosis: Hyperlipidemia, unsp ecified Losartan Potassium 50 MG Tablet 08/04/2015 - 11/10/2015 Prov ider: Valdez Stephens MD Diagnosis: Hypertension Unspeci fied Essential once a day d/c 25 mg Bisoprolol Fumarate 5 MG Tablet 08/04/2015 - 11/12/2015 Prov ider: Valdez Stephens MD Diagnosis: Essential (primary) hypertension as directed 1/2 tablet every morning Metoclopramide HCl 10 MG Tablet 08/04/2015 - 11/10/2015 Prov ider: Valdez Stephens MD Diagnosis: Type 2 diabetes amie itus with unspecified complications take 1 tablet po every 6 hrs , take 30 m inutse before meals and at bedtime prn only rarely Losartan Potassium 25 MG Tablet 08/04/2015 - 08/04/2015 Prov ider: Valdez Stephens MD Diagnosis: Essential (primary) hypertension once a day Ventolin HFA 108 (90 Base) MCG/ACT Aerosol Solution 08/04/19 16 - 11/10/2015 Provider: Valdez Stephens MD Diagnosis: Emphysema, unspecifi ed 2 puffs four times a day as needed for breathing Venlafaxine HCl ER 75 MG Tablet Extended Release 24 Ho ur 08/04/2015 - 05/31/2016 Provider: Valdez Stephens MD Diagnosis: Anxiety disorder, un specified once a day OneTouch Ultra Blue Strip 08/04/2015 - 03/01/2016 Provider: Valdez Stephens MD Diagnosis: Type 2 diabetes amie itus with unspecified complications as directed check bg bid and prn dx: 250.00 GlipiZIDE XL 10 MG Tablet Extended Release 24 Hour 6 - 11/10/2015 Provider: Valdez Stephens MD Diagnosis: Type 2 diabetes amie itus with unspecified complications twice a day Prandin 0.5 MG Tablet 08/04/2015 - 11/10/2015 Provider: Valdez Stephens MD Diagnosis: Type 2 diabetes amie itus with unspecified complications three times a day take 1 before each meal MetFORMIN HCl 500 MG Tablet 08/04/2015 - 11/10/2015 Provider : Valdez Stephens MD Diagnosis: Type 2 diabetes amie itus with unspecified complications TAKE ONE TABLET BY MOUTH IN THE MORNING AND ONE TABLET BEFORE DINNER FOR GLUCOSE CONTROL Levothyroxine Sodium 25 MCG Tablet 08/04/2015 - 01/26/2016 Scott nealder: Valdez Stephens MD Diagnosis: Hypothyroidism, unsp ecified once a day Lansoprazole 30 MG Capsule Delayed Release 08/04/2015 - 01/01 Provider: Valdez Stephens MD Diagnosis: Left lower quadrant pain once a day Ferrous Sulfate 325 (65 Fe) MG Tablet 08/04/2015 - 6 Provider: Valdez Stephens MD Diagnosis: Anemia, unspecified once a day D3-50 59889 UNIT Capsule 08/04/2015 - 01/28/2016 Provider: Valdez Stephens MD Diagnosis: Vitamin D deficiency , unspecified Once a month Cyclobenzaprine HCl 10 MG Tablet 08/04/2015 - 11/10/2015 Pro vider: Valdez Stephens MD Diagnosis: Complex regional zhou n syndrome I of left upper limb twice a day Atorvastatin Calcium 40 MG Tablet 08/04/2015 - 08/06/2015 Pr ovider: Valdez Stephens MD Diagnosis: Hyperlipidemia, unsp ecified once a day Increase dose Xarelto 20 MG Tablet 08/04/2015 - 10/22/2015 Provider: Diagnosis: Dr. Carter (cardiology) Fluticasone Propionate 50 MCG/ACT Suspension 08/04/2015 - Provider: Diagnosis: 2 sprays each nostril daily EQ Multivitamin Gummies Tablet Chewable 08/04/2015 - 016 Provider: Diagnosis: 2 gummies in the evening [facility] Melatonin 5 MG Tablet 08/04/2015 - 10/22/2015 Provider: Diagnosis: 2 po qhs Bisoprolol Fumarate 5 MG Tablet 08/04/2015 - 08/04/2015 Prov ider: Michelle Carter MD Diagnosis: 1/2 tablet every morning Polyethylene Glycol 3350 Powder 07/26/2015 - 12/03/2015 Prov ider: Valdez Stephens MD Diagnosis: Constipation, unspec ified as directed miralax 17 grams daily, adj usting up or down as needed to control constipation OTC Morphine Sulfate ER 15 MG Tablet Extended Release 07/26/2015 - 09/23/2015 Provider: Valdez Stephens MD Diagnosis: Cervicalgia twice a day MDD=2 Morphine Sulfate ER 15 MG Tablet, controlled-release 016 - 07/26/2015 Provider: Valdez Stephens MD Diagnosis: Cervicalgia twice a day MDD=2 MetFORMIN HCl 500 MG Tablet 04/30/2015 - 08/04/2015 Provider : Valdez Stephens MD Diagnosis: Type 2 diabetes amie itus with unspecified complications TAKE ONE TABLET BY MOUTH IN THE MORNING AND ONE TABLET BEFORE DINNER FOR GLUCOSE CONTROL MetFORMIN HCl 500 MG Tablet 04/29/2015 - 04/30/2015 Provider : Valdez Stephens MD Diagnosis: Type 2 diabetes amie itus with unspecified complications twice a day TAKE 1 TABLET IN THE AM AND ONE TABLET BEFORE DINNER FOR GLUCOSE CONTROL. Ferrous Sulfate 325 (65 Fe) MG Tablet 04/28/2015 - 6 Provider: Valdez Stephens MD Diagnosis: Anemia, unspecified once a day Ambien CR 12.5 MG Tablet Extended Release 04/28/2015 - 10/19 Provider: Valdez Stephens MD Diagnosis: Primary insomnia 1 every bedtime take 1 at bedtime (Do not fill until 1/28/1 6) SMZ-TMP DS 800-160 MG Tablet 04/21/2015 - 04/28/2015 Provide r: Valdez Stephens MD Diagnosis: Cellulitis of right lower limb twice a day Xarelto 20 MG Tablet 04/21/2015 - 08/04/2015 Provider: Diagnosis: Dr. Carter (cardiology) GNP Calcium 600 MG Tablet 04/21/2015 - 10/22/2015 Provider: Diagnosis: 2 tab every day Fluticasone Propionate 50 MCG/ACT Suspension 04/21/2015 - Provider: Diagnosis: 2 sprays each nostril daily CVS Melatonin 5 MG Tablet 04/21/2015 - 08/04/2015 Provider: Diagnosis: 2 po qhs Bisoprolol Fumarate 5 MG Tablet 04/21/2015 - 08/04/2015 Prov ider: Michelle Carter MD Diagnosis: 1/2 tablet every morning Acidophilus Probiotic Tablet 04/21/2015 - 10/22/2015 Provide r: Diagnosis: Morphine Sulfate ER 15 MG Tablet Extended Release 04/05/2015 - 05/31/2015 Provider: Valdez Stephens MD Diagnosis: Cervicalgia twice a day MDD=2 Levofloxacin 750 MG Tablet 03/08/2015 - 10/28/2015 Provider: Diagnosis: Acidophilus Probiotic Tablet 03/08/2015 - 04/21/2015 Provide r: Diagnosis: Metoclopramide HCl 10 MG Tablet 03/02/2015 - 08/04/2015 Prov ider: Diagnosis: take 1 tablet po every 6 hrs , take 30 minutse before meals and at bedtime MetroNIDAZOLE 500 MG Tablet 03/02/2015 - 10/28/2015 Provider : Diagnosis: 1 tab po every 12 hrs for 7 days Levofloxacin 500 MG Tablet 02/28/2015 - 10/28/2015 Provider: Diagnosis: once daily for pneumonia Morphine Sulfate ER 15 MG Tablet Extended Release 02/12/2015 - 04/05/2015 Provider: Valdez Stephens MD Diagnosis: Cervicalgia twice a day MDD=2 Losartan Potassium 25 MG Tablet 02/10/2015 - 08/04/2015 Prov ider: Irena Bush NP Diagnosis: once a day Losartan Potassium 25 MG OR TABS 02/10/2015 - 04/21/2015 Pro vider: Diagnosis: Venlafaxine HCl ER 75 MG Tablet Extended Release 24 Ho ur 01/15/2015 - 08/04/2015 Provider: Valdez Stephens MD Diagnosis: Anxiety disorder, un specified once a day Atorvastatin Calcium 40 MG Tablet 01/15/2015 - 08/04/2015 Pr ovider: Valdez Stephens MD Diagnosis: Hyperlipidemia, unsp ecified once a day Increase dose Cyclobenzaprine HCl 10 MG Tablet 01/15/2015 - 08/04/2015 Pro vider: Valdez Stephens MD Diagnosis: Complex regional zhou n syndrome I of left upper limb twice a day GlipiZIDE XL 10 MG Tablet Extended Release 24 Hour - 08/04/2015 Provider: Valdez Stephens MD Diagnosis: Type 2 diabetes amie itus without complications twice a day Lansoprazole 30 MG Capsule Delayed Release 01/15/2015 - 07/2015 Provider: Valdez Stephens MD Diagnosis: Left lower quadrant pain once a day Polyethylene Glycol 3350 Powder 01/15/2015 - 07/26/2015 Prov ider: Valdez Stephens MD Diagnosis: Constipation, unspec ified as directed miralax 17 grams daily, adj usting up or down as needed to control constipation OTC MetFORMIN HCl 500 MG Tablet 01/15/2015 - 04/29/2015 Provider : Valdez Stephens MD Diagnosis: Type 2 diabetes amie itus with unspecified complications twice a day TAKE 1 TABLET IN THE AM AND ONE TABLET BEFORE DINNER FOR GLUCOSE CONTROL. EQ Multivitamin Gummies Tablet Chewable 01/15/2015 - 016 Provider: Diagnosis: 2 gummies in the evening Xarelto 20 MG Tablet 01/15/2015 - 04/21/2015 Provider: Diagnosis: Dr. Carter (cardiology) Losartan Potassium 25 MG Tablet 01/15/2015 - 02/10/2015 Prov ider: Diagnosis: [facility] Melatonin 5 MG Tablet 01/15/2015 - 04/21/2015 Provider: Diagnosis: 2 po qhs Bisoprolol Fumarate 5 MG Tablet 01/15/2015 - 04/21/2015 Prov ider: Michelle Carter MD Diagnosis: 1/2 tablet every morning GNP Calcium 600 MG Tablet 01/15/2015 - 04/21/2015 Provider: Diagnosis: 2 tab every day [facility]S Melatonin 3 MG Tablet 01/15/2015 - 01/15/2015 Provider: Diagnosis: 1 tab at bedtime EQ Multivitamin Gummies Tablet Chewable 01/04/2015 - 015 Provider: Diagnosis: Ferrous Sulfate 325 (65 Fe) MG Tablet 01/01/2015 - 6 Provider: Harish Mcmahan NP Diagnosis: once a day Ceftin 500 MG Tablet 12/31/2014 - 01/10/2015 Provider: Harish Mcmahan NP Diagnosis: twice a day Darin Multivitamin for Women Tablet 12/31/2014 - 01/15/2015 P rovider: Diagnosis: Ciprofloxacin HCl 500 MG Tablet 12/31/2014 - 12/31/2014 Prov ider: Diagnosis: per [facility] montoya for ten days D3-50 [id number] UNIT Capsule 11/19/2014 - 08/04/2015 Provider: Harish Mcmahan NP Diagnosis: Unspecified Vitamin D Deficiency Once a month Permethrin 5 % Cream 11/09/2014 - 01/04/2015 Provider: Diagnosis: apply cream from neck down, leave on for 8 hrs then wash off. May repeat in 1 week if needed. D3-50 90031 UNIT Capsule 11/09/2014 - 11/19/2014 Provider: Harish Mcmahan NP Diagnosis: Unspecified Vitamin D Deficiency Once a month Ciprofloxacin HCl 0.3 % Solution 10/21/2014 - 01/04/2015 Pro vider: Valdez Stephens MD Diagnosis: 2 drops each ear three times a day Ciprofloxacin HCl 0.3 % Solution 10/21/2014 - 10/21/2014 Pro vider: Diagnosis: 2 drops in each ear 3 times a day [id number] Solution 10/16/2014 - 10/02 Provider: Valdez Stephens MD Diagnosis: Otitis Externa, Infe ctive Unspecified 3 drops in ear canal three times a day x 7 days Ventolin HFA 108 (90 Base) MCG/ACT Aerosol, solution 015 - 08/04/2015 Provider: Valdez Stephens MD Diagnosis: Emphysema Nec 2 puffs four times a day as needed for breathing Benefiber Powder 10/16/2014 - 09/11/2016 Provider: Valdez Stephens MD Diagnosis: CONSTIPATION twice a day 1 tblspoon PRN CONSTIPATION otc Polyethylene Glycol 3350 Powder 10/16/2014 - 01/15/2015 Prov ider: Valdez Stephens MD Diagnosis: CONSTIPATION as directed miralax 17 grams daily, adj usting up or down as needed to control constipation OTC Prandin 0.5 MG Tablet 10/16/2014 - 08/04/2015 Provider: Valdez Stephens MD Diagnosis: Dm With Unspecified Complication Type Ii or Unspecified Type three times a day take 1 before each meal MetFORMIN HCl 500 MG Tablet 10/16/2014 - 01/15/2015 Provider : Valdez Stephens MD Diagnosis: Dm With Unspecified Complication Type Ii or Unspecified Type twice a day TAKE 1 TABLET IN THE AM AND ONE TABLET BEFORE DINNER FOR GLUCOSE CONTROL. Levothyroxine Sodium 25 MCG Tablet 10/16/2014 - 08/04/2015 Scott cifuentes: Valdez Stephens MD Diagnosis: Unspecified Acquired Hypothyroidism once a day Lansoprazole 30 MG Capsule, delayed-release 10/16/2014 - Provider: Valdez Stephens MD Diagnosis: Abdominal Pain Left Lower Quadrant once a day OneTouch Ultra Blue Strip 10/16/2014 - 08/04/2015 Provider: Valdez Stephens MD Diagnosis: Dm Without Complicat ion Type II or Unspecified Type Not Stat as directed check bg bid and prn dx: 250.00 GlipiZIDE XL 10 MG Tablet, extended-release 24 hour 10/17/19 - 01/15/2015 Provider: Valdez Stephens MD Diagnosis: Dm Without Complicat ion Type II or Unspecified Type Not Stat twice a day Cyclobenzaprine HCl 10 MG Tablet 10/16/2014 - 01/15/2015 Pro vider: Valdez Stephens MD 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 pl ease refer to i stop when fill is needed Ambien CR 12.5 MG Tablet, controlled-release 10/16/2014 - Provider: Valdez Stephens MD Diagnosis: Persistent Disorder of Initiating or Maintaining Sleep 1 every bedtime take 1 at bedtime Xarelto 20 MG Tablet 10/16/2014 - 01/15/2015 Provider: Diagnosis: Dr. Carter (cardiology) Losartan Potassium 25 MG Tablet 10/16/2014 - 01/15/2015 Prov ider: Diagnosis: GNP Calcium 600 MG Tablet 10/16/2014 - 01/15/2015 Provider: Diagnosis: 2 tab every day Fluticasone Propionate 50 MCG/ACT Suspension 10/16/2014 - Provider: Diagnosis: 2 sprays each nostril daily [facility]S Melatonin 5 MG Tablet 10/16/2014 - 01/15/2015 Provider: Diagnosis: 2 po qhs Levothyroxine Sodium 25 MCG Tablet 09/07/2014 - 10/16/2014 Scott cifuentes: Valedz Stephens MD Diagnosis: Unspecified Acquired Hypothyroidism once a day Lansoprazole 30 MG Capsule, delayed-release 09/07/2014 - Provider: Valdez Stephens MD Diagnosis: Abdominal Pain Left Lower Quadrant once a day Zostavax 01040 UNT/0.65ML Solution, when reconstituted 08/07 - 09/01/2014 Provider: Valdez Stephens MD Diagnosis: Routine General Medi santi Examination At a Health [facility] as directed please adminsiter at pharmacy GNP Calcium 600 MG Tablet 08/07/2014 - 10/16/2014 Provider: Diagnosis: 2 tab every day Losartan Potassium 25 MG Tablet 08/07/2014 - 10/16/2014 Prov ider: Diagnosis: Bisoprolol Fumarate 5 MG Tablet 08/07/2014 - 01/15/2015 Prov ider: Michelle Carter MD Diagnosis: 1/2 tablet every morning [facility]S Melatonin 5 MG Tablet 08/07/2014 - 10/16/2014 Provider: Diagnosis: 2 po qhs Xarelto 20 MG Tablet 08/07/2014 - 10/16/2014 Provider: Diagnosis: Dr. Carter (cardiology) Fluticasone Propionate 50 MCG/ACT Suspension 08/07/2014 - Provider: Diagnosis: 2 sprays each nostril daily GlipiZIDE XL 10 MG Tablet, extended-release 24 hour 07/30/19 - 10/16/2014 Provider: Valdez Stephens MD Diagnosis: Dm Without Complicat ion Type II or Unspecified Type Not Stat twice a day Clindamycin HCl 300 MG Capsule, conventional 05/18/2014 - Provider: Valdez Stephens MD Diagnosis: Cellulitis and Absce ss of Unspecified Sites one tab po three times a day AmLODIPine Besylate 5 MG Tablet 05/08/2014 - 08/07/2014 Prov ider: Valdez Stephens MD Diagnosis: Hypertension Unspeci fied Essential once a day per hospital (Instead of losartan) Zostavax 58028 UNT/0.65ML Solution, when reconstituted 05/08 - 09/01/2014 Provider: Valdez Stephens MD Diagnosis: Dm With Unspecified Complication Type Ii or Unspecified Type Give as directed (after July 2014) Benadryl 25 MG Tablet 05/08/2014 - 08/07/2014 Provider: Diagnosis: one tab tid per hospital report dated 05/07/14 AmLODIPine Besylate 5 MG Tablet 05/08/2014 - 05/08/2014 Prov ider: Diagnosis: per hospital report dated 05/07/14 Clindamycin HCl 300 MG Capsule, conventional 05/08/2014 - Provider: Diagnosis: three times a day per hospital report Mupirocin 2 % Ointment 05/08/2014 - 08/07/2014 Provider: Diagnosis: apply moderate amount bid per hospital report Fluticasone Propionate 50 MCG/ACT Suspension 05/08/2014 - Provider: Diagnosis: 2 sprays each nostril daily Losartan Potassium 25 MG Tablet 05/01/2014 - 05/08/2014 Prov ider: Valdez Stephens MD Diagnosis: Hypertension Unspeci fied Essential Take this dose once a day, instead of Losartan 50mg Ventolin HFA 108 (90 Base) MCG/ACT Aerosol, solution 015 - 10/16/2014 Provider: Valdez Stephens MD Diagnosis: Emphysema Nec 2 puffs four times a day as needed for breathing Compressor/Nebulizer Miscellaneous (not specified) 5 - 11/10/2015 Provider: Valdez Stephens MD Diagnosis: Emphysema Nec Use 4 times a day for wheezing or trapping as needed Bactroban 2 % Ointment 05/01/2014 - 08/07/2014 Provider: Valdez Stephens MD Diagnosis: Impetigo twice a day on skin under nose for infection Venlafaxine HCl ER 75 MG Tablet, extended-release 24 h our 05/01/2014 - 01/15/2015 Provider: Valdez Stephens MD Diagnosis: Anxiety State Unspec ified once a day Polyethylene Glycol 3350 Powder 05/01/2014 - 10/16/2014 Prov ider: Valdez Stephens MD Diagnosis: CONSTIPATION as directed miralax 17 grams daily, adj usting up or down as needed to control constipation OTC Lansoprazole 30 MG Capsule, delayed-release 05/01/2014 - Provider: Valdez Stephens MD Diagnosis: Abdominal Pain Left Lower Quadrant once a day Prandin 0.5 MG Tablet 05/01/2014 - 10/16/2014 Provider: Valdez Stephens MD Diagnosis: Dm With Unspecified Complication Type Ii or Unspecified Type three times a day take 1 before each meal MetFORMIN HCl 500 MG Tablet 05/01/2014 - 10/16/2014 Provider : Valdez Stephens MD Diagnosis: Dm With Unspecified Complication Type Ii or Unspecified Type twice a day TAKE 1 TABLET IN THE AM AND ONE TABLET BEFORE DINNER FOR GLUCOSE CONTROL. 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 a day Atorvastatin Calcium 40 MG Tablet 05/01/2014 - 10/16/2014 Pr ovider: Valdez Stephens MD Diagnosis: Unspecified Hyperlip idemia Nec once a day Increase dose Ambien CR 12.5 MG Tablet, controlled-release 05/01/2014 - Provider: Valdez Stephens MD Diagnosis: Persistent Disorder of Initiating or Maintaining Sleep 1 every bedtime take 1 at bedtime Bactrim DS 800-160 MG Tablet 05/01/2014 - 08/07/2014 Provide r: Valdez Stephens MD Diagnosis: Impetigo bid - twice a day for skin infection Bactrim DS 800-160 MG OR TABS 04/13/2014 - 05/01/2014 Provid er: Harish Mcmahan NP Diagnosis: Morphine Sulfate ER 15 MG OR TBCR 04/08/2014 - 10/16/2014 Pr ovider: Valdez Stephens MD Diagnosis: Pain of Cervical Spi ne Neck Pain pharmacy aware of change. please refer to i stop when fill is needed Morphine Sulfate ER 15 MG OR TBCR 03/30/2014 - 03/20/2014 Pr ovider: Valdez Stephens MD Diagnosis: Pain of Cervical Spi ne Neck Pain pharmacy aware of change Prandin 0.5 MG OR TABS 03/20/2014 - 05/01/2014 Provider: Valdez Stephens MD Diagnosis: Dm With Unspecified Complication Type Ii or Unspecified Type take 1 before each meal Morphine Sulfate ER 15 MG OR TBCR 03/05/2014 - 03/20/2014 Pr ovider: Valdez Stephens MD Diagnosis: Pain of Cervical Spi ne Neck Pain do not fill until 03/29/14 Amoxicillin 875 MG OR TABS 02/20/2014 - 04/13/2014 Provider: Valdez Stephens MD Diagnosis: Pneumonia Organism U nspecified may repeat 5 day course prn onset of chest cold Morphine Sulfate ER 15 MG OR TBCR 02/20/2014 - 03/05/2014 Pr ovider: Valdez Stephens MD Diagnosis: Pain of Cervical Spi ne Neck Pain levoFLOXacin 500 MG OR TABS 02/20/2014 - 02/21/2014 Provider : Diagnosis: one tab po per [facility] last pill to be taken on 4 evening Diflucan 150 MG OR TABS 02/20/2014 - 08/07/2014 Provider: Valdez Stephens MD Diagnosis: one tab po x 1 now. repeat in 1 week if sx persist Levaquin 500 MG OR TABS 02/11/2014 - 02/21/2014 Provider: Arnol Gaston RPA-C Diagnosis: 1 daily Losartan Potassium 50 MG OR TABS 02/11/2014 - 05/01/2014 Pro vider: Diagnosis: Morphine Sulfate ER 15 MG OR TBCR 01/28/2014 - 02/20/2014 Pr ovider: Valdez Stephens MD Diagnosis: Pain of Cervical Spi ne Neck Pain [id number] 12 MCG/HR TD PT72 01/21/2014 - 01/28/2014 Provider: Valdez Stephens MD Diagnosis: one patch at a time leave on skin for 3 days/verbal given to pharmacy for dose change Prevnar 13 IM SUSP 01/21/2014 - 08/07/2014 Provider: Valdez Stephens MD Diagnosis: Emphysema Nec Please administer Atorvastatin Calcium 40 MG OR TABS 01/21/2014 - 05/01/2014 Scott cifuentes: Valdez Stephens MD Diagnosis: Unspecified Hyperlip idemia Nec Increase dose fentaNYL 25 MCG/HR TD PT72 01/21/2014 - 01/21/2014 Provider: Valdez Stephens MD Diagnosis: Dm With Unspecified Complication Type Ii or Unspecified Type Use one patch at a time, leave on skin for 3 days. Betamethasone Dipropionate 0.05% EX CREA 01/21/2014 - 2013 Provider: Valdez Stephens MD Diagnosis: Contact Dermatitis a nd Other Eczema Unspecified Cause apply a thin film to affected area bid prn Xarelto 20 MG OR TABS 01/21/2014 - 08/07/2014 Provider: Diagnosis: Dr. Carter (cardiology) Xarelto 20 MG OR TABS 01/21/2014 - 01/21/2014 Provider: Diagnosis: Dr. Carter MiraLax 17 GM/SCOOP OR POWD 01/14/2014 - 01/21/2014 Provider : Valdez Stephens MD Diagnosis: CONSTIPATION 2 capsful daily; disp 4 bottles for 3 months Venlafaxine HCl ER 75 MG OR TB24 01/14/2014 - 05/01/2014 Pro vider: Valdez Stephens MD Diagnosis: Anxiety State Unspec ified OneTouch Ultra Blue STRP 01/14/2014 - 10/16/2014 Provider : Valdez Stephens MD Diagnosis: Dm Without Complicat ion Type II or Unspecified Type Not Stat check bg bid and prn dx: 250.00 D3-50 1.25 MG (04478 UT) OR CAPS 01/14/2014 - 11/09/2014 Pro vider: Valdez Stephens MD Diagnosis: Unspecified Vitamin D Deficiency Lansoprazole 30 MG OR CPDR 01/14/2014 - 05/01/2014 Provider: Valdez Stephens MD Diagnosis: Abdominal Pain Left Lower Quadrant Levothyroxine Sodium 25 MCG OR TABS 01/14/2014 - 05/01/2014 Provider: Valdez Stephens MD Diagnosis: Unspecified Acquired Hypothyroidism Prandin 0.5 MG OR TABS 01/14/2014 - 03/20/2014 Provider: Valdez Stephens MD Diagnosis: Dm With Unspecified Complication Type Ii or Unspecified Type take 1 before each meal Atorvastatin Calcium 10 MG OR TABS 01/14/2014 - 01/21/2014 Scott cifuentes: Valdez Stephens MD Diagnosis: 1 tab PO daily Betamethasone Dipropionate 0.05% EX CREA 01/14/2014 - 2013 Provider: Valdez Stephens MD Diagnosis: apply a thin film to affected area bid prn OneTouch UltraSoft Lancets MISC 01/14/2014 - 01/15/2017 Prov ider: Valdez Stephens MD Diagnosis: bid and prn dilTIAZem HCl ER 120 MG OR CP24 01/14/2014 - 12/01/2013 Prov ider: Valdez Stephens MD Diagnosis: Hypertension Unspeci fied Essential TAKE ONE TAB bid Ambien CR 12.5 MG OR TBCR 01/14/2014 - 05/01/2014 Provider: Valdez Stephens MD Diagnosis: Persistent Disorder of Initiating or Maintaining Sleep take 1 at bedtime Cyclobenzaprine HCl 10 MG OR TABS 01/14/2014 - 05/01/2014 Pr ovider: Valdez Stephens MD 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 one tab po qd mdd 2 mdd 2 Betamethasone Dipropionate 0.05% EX CREA 12/30/2013 - 2013 Provider: Angela Canchola [employer] Diagnosis: apply a thin film to affected area bid prn Keflex 500 MG OR CAPS 12/30/2013 - 02/20/2014 Provider: Angela Canchola NP Diagnosis: one tab po bid for 10 days [facility] Melatonin 5 MG OR TABS 12/30/2013 - 08/07/2014 Provider: Diagnosis: 2 po qhs Combivent 18-103 MCG/ACT IN AERO 12/30/2013 - 05/01/2014 Pro vider: Diagnosis: Bisoprolol Fumarate 5 MG OR TABS 12/30/2013 - 08/07/2014 Pro vider: Michelle Carter MD Diagnosis: 1/2 tablet every morning Atorvastatin Calcium 10 MG OR TABS 12/26/2013 - 01/14/2014 P rovider: Valdez Stephens MD Diagnosis: 1 tab PO daily [employer] Tape Paper TAPE 12/19/2013 - 08/07/2014 Prov ider: Alma MERCEDES Diagnosis: Contact Dermatitis a nd Other Eczema Unspecified Cause use with gauze pad to LLE Curity Gauze Sponge 4"X4" PADS 12/19/2013 - 08/07/2014 Provi kassi: Alma MERCEDES Diagnosis: Contact Dermatitis a nd Other Eczema Unspecified Cause use with bactroban to LLE Bactroban 2% EX CREA 12/19/2013 - 12/30/2013 Provider: Alma MERCEDES Diagnosis: Contact Dermatitis a nd Other Eczema Unspecified Cause Apply to affected area twice daily; apply to affected area o n L leg MiraLax 17 GM/SCOOP OR POWD 12/19/2013 - 01/14/2014 Provider : Diagnosis: Ambien CR 12.5 MG OR TBCR 11/07/2013 - 01/14/2014 Provider: Valdez Stephens MD Diagnosis: Persistent Disorder of Initiating or Maintaining Sleep take 1 at bedtime DermOtic 0.01% OT OIL 10/12/2013 - 12/30/2013 Provider: Claire Carbajal NP Diagnosis: Otitis Externa, Infe ctive Unspecified 5 gtts each ear twice daily X7 days AFTER completion of Oflo xacin ear drops Ofloxacin 0.3% OT SOLN 10/12/2013 - 12/30/2013 Provider: Claire Carbajal NP Diagnosis: Otitis Externa, Infe ctive Unspecified 10 gtts each ear once daily X 7 days [facility] Melatonin 5 MG OR TABS 10/12/2013 - 12/30/2013 Provider: Diagnosis: 2 po qhs Combivent 18-103 MCG/ACT IN AERO 10/12/2013 - 12/30/2013 Pro vider: Diagnosis: Bisoprolol Fumarate 5 MG OR TABS 10/12/2013 - 12/30/2013 Pro vider: Michelle Carter MD Diagnosis: 1/2 tablet every morning Atorvastatin Calcium 10 MG OR TABS 10/12/2013 - 12/26/2013 P rovider: Diagnosis: 1 tab PO daily HYDROcodone-Acetaminophen 5-325 MG OR TABS 10/07/2013 - 10/2013 Provider: Claire Carbajal NP 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 prn sparinglymdd 2 Vitamin D3 1.25 MG (07754 UT) OR CAPS 08/21/2013 - 4 Provider: Valdez Stephens MD Diagnosis: Unspecified Vitamin D Deficiency Prandin 0.5 MG OR TABS 08/20/2013 - 01/14/2014 Provider: Valdez Stephens MD Diagnosis: Dm With Unspecified Complication Type Ii or Unspecified Type take 1 before each meal HYDROcodone-Acetaminophen 5-325 MG OR TABS 08/15/2013 - 10/2013 Provider: Valdez Stephens MD 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 prn sparinglymdd 2 Cyclobenzaprine HCl 10 MG OR TABS 08/15/2013 - 01/14/2014 Pr ovider: Valdez Stephens MD 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 Levothyroxine Sodium 25 MCG OR TABS 08/15/2013 - 01/14/2014 Provider: Valdez Stephens MD Diagnosis: Unspecified Acquired Hypothyroidism dilTIAZem HCl ER 120 MG OR CP24 08/15/2013 - 01/14/2014 Prov ider: Valdez Stephens MD Diagnosis: Hypertension Unspeci fied Essential TAKE ONE TAB bid Melatonin 3 MG OR TABS 08/15/2013 - 12/30/2013 Provider: Valdez Stephens MD Diagnosis: Persistent Disorder of Initiating or Maintaining Sleep Ambien CR 12.5 MG OR TBCR 08/15/2013 - 11/07/2013 Provider: Valdez Stephens MD Diagnosis: Persistent Disorder of Initiating or Maintaining Sleep take 1 at bedtime Lansoprazole 30 MG OR CPDR 08/15/2013 - 01/14/2014 Provider: Valdez Stephens MD Diagnosis: Abdominal Pain Left Lower Quadrant Polyethylene Glycol 3350 17 GM/SCOOP OR POWD 08/15/2013 - Provider: Valdez Stephens MD Diagnosis: CONSTIPATION miralax 17 grams daily, adjusting up or down as needed to control constipation OTC metFORMIN HCl 500 MG TABS 08/15/2013 - 01/14/2014 Provider: Valdez Stephens MD Diagnosis: Dm With Unspecified Complication Type Ii or Unspecified Type TAKE 1 TABLET IN THE AM AND ONE T ABLET BEFORE DINNER FOR GLUCOSE CONTROL. Pulmicort Flexhaler 90 MCG/ACT IN AEPB 08/15/2013 - 01/22/20 14 Provider: Valdez Stephens MD Diagnosis: Emphysema Nec take as directed. Venlafaxine HCl ER 75 MG OR TB24 08/15/2013 - 01/14/2014 Pro vider: Valdez Stephens MD Diagnosis: Anxiety State Unspec ified D3-50 1.25 MG (48772 UT) OR CAPS 08/15/2013 - 01/14/2014 Pro vider: Valdez Stephens MD Diagnosis: Unspecified Vitamin D Deficiency Cyclobenzaprine HCl 10 MG OR TABS 08/15/2013 - 08/15/2013 Pr ovider: Diagnosis: prescribed by [facility] but pt is only taking BID [facility] Melatonin 5 MG OR TABS 08/15/2013 - 10/12/2013 Provider: Diagnosis: 2 po qhs Combivent 18-103 MCG/ACT IN AERO 08/15/2013 - 10/12/2013 Pro vider: Diagnosis: Bisoprolol Fumarate 5 MG OR TABS 08/15/2013 - 10/12/2013 Pro vider: Michelle Carter MD Diagnosis: 1/2 tablet every morning Xarelto 20 MG OR TABS 08/15/2013 - 04/13/2014 Provider: Diagnosis: [facility]S Melatonin 3 MG OR TABS 08/15/2013 - 08/15/2013 Provider: Diagnosis: 3 po at bedtime Atorvastatin Calcium 10 MG OR TABS 08/15/2013 - 10/12/2013 Scott nealder: Diagnosis: 1 tab PO daily Famvir 500 MG OR TABS 08/06/2013 - 12/19/2013 Provider: Valdez Stephens MD Diagnosis: dilTIAZem HCl ER 120 MG OR CP12 08/06/2013 - 08/06/2013 Prov ider: Diagnosis: Take one tab PO BID(Cardio report 07/09/13) Lansoprazole 30 MG OR CPDR 08/06/2013 - 08/15/2013 Provider: Valdez Stephens MD Diagnosis: Abdominal Pain Left Lower Quadrant dilTIAZem HCl ER 120 MG OR CP24 08/06/2013 - 08/15/2013 Prov ider: Valdez Stephens MD Diagnosis: TAKE ONE TAB bid Polyethylene Glycol 3350 17 GM/SCOOP OR POWD 07/30/2013 - Provider: Valdez Stephens MD Diagnosis: CONSTIPATION miralax 17 grams daily, adjusting up or down as needed to control constipation OTC glipiZIDE ER 10 MG OR TB24 07/30/2013 - 01/14/2014 Provider: Valdez Stephens MD Diagnosis: Dm With Unspecified Complication Type Ii or Unspecified Type OneTouch Ultra Blue STRP 07/30/2013 - 01/14/2014 Provider : Valdez Stephens MD Diagnosis: Dm Without Complicat ion Type II or Unspecified Type Not Stat check bg bid and prn dx: 250.00 zz.Lortab 5/325 mg OR TABS 07/14/2013 - 12/30/2013 Provider: Irena Bush NP Diagnosis: 1-2 po q4-6h prnMDD-4 Famvir 500 MG OR TABS 07/14/2013 - 08/06/2013 Provider: Irena Bush [employer] Diagnosis: Bactroban 2% EX OINT 07/14/2013 - 07/14/2013 Provider: Irena Bush NP Diagnosis: Augmentin 875-125 MG OR TABS 07/14/2013 - 08/15/2013 Provide r: Irena Bush [employer] Diagnosis: Bactroban 2% EX OINT 07/14/2013 - 12/30/2013 Provider: Irena Bush NP Diagnosis: refill x1 please Ambien CR 12.5 MG OR TBCR 07/07/2013 - 08/15/2013 Provider: Valdez Stephens MD Diagnosis: Persistent Disorder of Initiating or Maintaining Sleep take 1 at bedtime Ambien CR 12.5 MG OR TBCR 07/07/2013 - 07/07/2013 Provider: Valdez Stephens MD Diagnosis: Persistent Disorder of Initiating or Maintaining Sleep take 1 at bedtime Flexeril 10 MG OR TABS 06/19/2013 - 08/15/2013 Provider: Valdez Stephens MD Diagnosis: Lumbago 1 po tid prn Ambien CR 12.5 MG OR TBCR 06/06/2013 - 07/07/2013 Provider: Claire Carbajal NP Diagnosis: Persistent Disorder of Initiating or Maintaining Sleep take 1 at bedtime Polyethylene Glycol 3350 17 GM/SCOOP OR POWD 04/21/2013 - Provider: Valdez Stephens MD Diagnosis: CONSTIPATION miralax 17 grams daily, adjusting up or down as needed to control constipation OTC Prandin 0.5 MG OR TABS 02/17/2013 - 08/15/2013 Provider: Valdez Stephens MD Diagnosis: Dm With Unspecified Complication Type Ii or Unspecified Type take 1 before each meal D3-50 1.25 MG (47653 UT) OR CAPS 01/23/2013 - 08/15/2013 Pro vider: Valdez Stephens MD Diagnosis: Unspecified Vitamin D Deficiency Xarelto 20 MG OR TABS 01/23/2013 - 08/15/2013 Provider: Diagnosis: [facility] Atorvastatin Calcium 10 MG OR TABS 01/23/2013 - 08/15/2013 Scott nealder: Diagnosis: 1 tab PO daily Aspirin 81 MG OR TABS 01/23/2013 - 08/15/2013 Provider: Diagnosis: Synthroid 25 MCG OR TABS 11/13/2012 - 08/15/2013 Provider: Valdez Stephens MD Diagnosis: Unspecified Acquired Hypothyroidism Polyethylene Glycol 3350 17 GM/SCOOP OR POWD 11/13/2012 - Provider: Valdez Stephens MD Diagnosis: CONSTIPATION miralax 17 grams daily, adjusting up or down as needed to control constipation OTC Lansoprazole 30 MG OR CPDR 11/13/2012 - 07/30/2013 Provider: Valdez Stephens MD Diagnosis: Abdominal Pain Left Lower Quadrant Flexeril 10 MG OR TABS 11/13/2012 - 06/19/2013 Provider: Valdez Stephens MD Diagnosis: Lumbago 1 po tid prn Potassium Chloride Darshana ER 20 MEQ OR TBCR 11/13/2012 - 08/15 Provider: Valdez Stephens MD Diagnosis: Hypertension Unspeci fied Essential hydroCHLOROthiazide 25 MG TABS 11/13/2012 - 08/15/2013 Provi kassi: Valdez Stephens MD Diagnosis: Hypertension Unspeci fied Essential daily dilTIAZem HCl ER 120 MG OR CP24 11/13/2012 - 08/06/2013 Prov ider: Valdez Stephens MD Diagnosis: Hypertension Unspeci fied Essential Pulmicort Flexhaler 90 MCG/ACT IN AEPB 11/13/2012 - 08/16/19 14 Provider: Valdez Stephens MD Diagnosis: Emphysema Nec take as directed. Melatonin 3 MG OR TABS 11/13/2012 - 08/15/2013 Provider: Valdez Stephens MD Diagnosis: metFORMIN HCl 500 MG TABS 11/13/2012 - 08/15/2013 Provider: Valdez Stephens MD Diagnosis: Dm With Unspecified Complication Type Ii or Unspecified Type TAKE 1 TABLET IN THE AM AND ONE T ABLET BEFORE DINNER FOR GLUCOSE CONTROL. glipiZIDE ER 10 MG OR TB24 11/13/2012 - 07/30/2013 Provider: Valdez Stephens MD Diagnosis: Dm With Unspecified Complication Type Ii or Unspecified Type Xarelto 20 MG OR TABS 11/13/2012 - 01/23/2013 Provider: Diagnosis: [facility] Atorvastatin Calcium 10 MG OR TABS 11/13/2012 - 01/23/2013 Scott nealder: Diagnosis: 1 tab PO daily Ambien CR 12.5 MG OR TBCR 11/13/2012 - 06/06/2013 Provider: Valdez Stephens MD Diagnosis: Persistent Disorder of Initiating or Maintaining Sleep Venlafaxine HCl ER 75 MG OR TB24 11/13/2012 - 08/15/2013 Pro vider: Valdez Stephens MD Diagnosis: Anxiety State Unspec ified metFORMIN HCl 500 MG TABS 11/07/2012 - 11/13/2012 Provider: aVldez Stephens MD Diagnosis: Dm With Unspecified Complication Type Ii or Unspecified Type TAKE 1 TABLET IN THE AM AND ONE T ABLET BEFORE DINNER FOR GLUCOSE CONTROL. Prandin 0.5 MG OR TABS 09/13/2012 - 02/17/2013 Provider: Valdez Stephens MD Diagnosis: Dm With Unspecified Complication Type Ii or Unspecified Type take 1 before each meal One Touch Ultra Blood Glucose STRP 07/26/2012 - 07/30/2013 Scott cifuentes: Valdez Stephens MD Diagnosis: use bid and prn OneTouch UltraSoft Lancets MISC 07/26/2012 - 01/14/2014 Prov ider: Valdez Stephens MD Diagnosis: bid and prn Atorvastatin Calcium 10 MG OR TABS 07/11/2012 - 11/13/2012 Scott cifuentes: Diagnosis: 1 tab PO daily Nystatin [id number] UNIT/GM EX CREA 07/11/2012 - 11/13/2012 Prov ider: Solange Bennett NP Diagnosis: apply to affected area TID until clear Betamethasone Dipropionate 0.05% EX CREA 06/21/2012 - 2013 Provider: Vinnie Rocha MD Diagnosis: Other Psoriasis and Similar Disorders apply to rash on ears bid for 7 days. Blood Glucose Test STRP 05/28/2012 - 07/30/2013 Provider: Valdez Stephens MD Diagnosis: Dm With Unspecified Complication Type Ii or Unspecified Type use as needed, up to 2 daily for contour meter glipiZIDE ER 10 MG OR TB24 05/17/2012 - 11/13/2012 Provider: Valdez Stephens MD Diagnosis: Dm With Unspecified Complication Type Ii or Unspecified Type Ambien CR 12.5 MG OR TBCR 05/17/2012 - 01/23/2013 Provider: Valdez Stephens MD Diagnosis: Persistent Disorder of Initiating or Maintaining Sleep take 1 tab PO QHS Lansoprazole 30 MG OR CPDR 05/17/2012 - 11/13/2012 Provider: Valdez Stephens MD Diagnosis: Abdominal Pain Left Lower Quadrant Polyethylene Glycol 3350 17 GM/SCOOP OR POWD 05/17/2012 - Provider: Valdez Stephens MD Diagnosis: CONSTIPATION miralax 17 grams daily, adjusting up or down as needed to control constipation OTC Pulmicort Flexhaler 90 MCG/ACT IN AEPB 05/17/2012 - 11/14/19 13 Provider: Valdez Stephens MD Diagnosis: Emphysema Nec take as directed. Synthroid 25 MCG OR TABS 05/17/2012 - 11/13/2012 Provider: Valdez Stephens MD Diagnosis: Unspecified Acquired Hypothyroidism Flexeril 10 MG OR TABS 05/17/2012 - 11/13/2012 Provider: Valdez Stephens MD Diagnosis: Lumbago 1 po tid prn Potassium Chloride Darshana ER 20 MEQ OR TBCR 05/17/2012 - 11/13 Provider: Valdez Stephens MD Diagnosis: Hypertension Unspeci fied Essential hydroCHLOROthiazide 25 MG TABS 05/17/2012 - 11/13/2012 Provi kassi: Valdez Stephens MD Diagnosis: Hypertension Unspeci fied Essential daily dilTIAZem HCl ER 120 MG OR CP24 05/17/2012 - 11/13/2012 Prov ider: Valdez Stephens MD Diagnosis: Hypertension Unspeci fied Essential Venlafaxine HCl ER 75 MG OR TB24 05/17/2012 - 11/13/2012 Pro vider: Valdez Stephens MD Diagnosis: Anxiety State Unspec ified metFORMIN HCl 500 MG TABS 05/17/2012 - 11/07/2012 Provider: Valdez Stephens MD Diagnosis: Dm With Unspecified Complication Type Ii or Unspecified Type 1 in AM and 1 before dinner for glucose control Melatonin 3 MG OR TABS 05/17/2012 - 11/13/2012 Provider: Valdez Stephens MD Diagnosis: Prandin 0.5 MG OR TABS 05/17/2012 - 09/13/2012 Provider: Valdez Stephens MD Diagnosis: Dm With Unspecified Complication Type Ii or Unspecified Type take 1 before each meal Pulmicort Flexhaler 90 MCG/ACT IN AEPB 04/22/2012 - 05/17/19 13 Provider: Bettye Randall [employer] Diagnosis: Emphysema Nec take as directed. Ambien CR 12.5 MG OR TBCR 04/22/2012 - 05/17/2012 Provider: Bettye Randall NP Diagnosis: Persistent Disorder of Initiating or Maintaining Sleep take 1 tab PO QHS Ceftin 500 MG OR TABS 04/22/2012 - 05/17/2012 Provider: Bettye Randall [employer] Diagnosis: Obstructive Chronic Bronchitis Without Acute Exacerbation take 1 tab PO BID x 10 days predniSONE 20 MG OR TABS 04/22/2012 - 05/17/2012 Provider: Bettye Randall [employer] Diagnosis: Acute Bronchitis take 1 tab PO TID x 3 days, then 1 tab P O BID x 3 days, then 1 tab PO daily x 3 days, take 1/2 tabs PO daily x 3 days Venlafaxine HCl 37.5 MG OR TABS 03/16/2012 - 03/16/2012 Prov ider: Harish MERCEDES Diagnosis: Anxiety State Unspec ified ONE TAB DAILY X ONE WEEK THEN START 75 MG DOSING-- Betamethasone Dipropionate 0.05% EX LOTN 03/16/2012 - 2012 Provider: Harish MERCEDES Diagnosis: Other Psoriasis and Similar Disorders AAA BID PRN RASH #25 GRAM TUBE Aliyah EX LOTN 03/16/2012 - 12/03/2018 Provider: Harish MERCEDES Diagnosis: Other Psoriasis and Similar Disorders APPLY TO RASH BID PRN Venlafaxine HCl 37.5 MG OR TABS 03/16/2012 - 11/13/2012 Prov ider: Harish MERCEDES Diagnosis: Anxiety State Unspec ified ONE TAB DAILY X ONE WEEK THEN START 75 MG DOSING-- THI S SHOULD BE THE 24 HOUR Venlafaxine HCl ER 75 MG OR TB24 03/16/2012 - 05/17/2012 Pro vider: Harish MERCEDES Diagnosis: Anxiety State Unspec ified START AFTER 37.5 MG DOSING ONCE DAILY Cortisporin 3.5-50332-6 OT SOLN 02/05/2012 - 03/16/2012 Prov ider: Jalen Angel MD Diagnosis: 3-4 drops 4 times per day for 10 days Clotrimazole-Betamethasone 1-0.05% EX CREA 02/05/2012 - 03/02 Provider: Jalen Angel MD Diagnosis: Apply twice per day to affected skin as needed Bactrim DS 800-160 MG OR TABS 02/05/2012 - 03/16/2012 Provid er: Jalen Angel MD Diagnosis: Otitis Externa, Infe ctive Unspecified Zithromax Z-Jasen 250 MG OR TABS 01/15/2012 - 02/05/2012 Provi kassi: Harish Mcmahan NP Diagnosis: Acute Bronchitis UAD Zithromax Z-Jasen 250 MG OR TABS 01/10/2012 - 01/15/2012 Provi kassi: Claire Carbajal [employer] Diagnosis: Acute Bronchitis UAD Lansoprazole 30 MG OR CPDR 01/10/2012 - 05/17/2012 Provider: Valdez Stephens MD Diagnosis: glipiZIDE XL 5 MG OR TB24 01/10/2012 - 11/13/2012 Provider: Valdez Stephens MD Diagnosis: Dm With Unspecified Complication Type Ii or Unspecified Type Atorvastatin Calcium 10 MG OR TABS 01/09/2012 - 07/11/2012 P valder: Diagnosis: 1 tab PO daily glipiZIDE 5 MG OR TABS 01/09/2012 - 01/15/2012 Provider: Diagnosis: 1 tablet twice a day Aspirin 325 MG OR TABS 12/11/2011 - 01/10/2012 Provider: Diagnosis: otc Ciprofloxacin HCl 0.3% OP SOLN 12/11/2011 - 01/10/2012 Provi kassi: Valdez Stephens MD Diagnosis: Otitis Externa, Infe ctive Unspecified 3 drops foru times a day for 10 days Melatonin 3 MG OR TABS 12/11/2011 - 05/17/2012 Provider: Diagnosis: Synthroid 25 MCG OR TABS 12/01/2011 - 05/17/2012 Provider: Valdez Stephens MD Diagnosis: Unspecified Acquired Hypothyroidism Polyethylene Glycol 3350 17 GM/SCOOP OR POWD 12/01/2011 - Provider: Valdez Stephens MD Diagnosis: CONSTIPATION miralax 17 grams daily, adjusting up or down as needed to control constipation OTC Omeprazole 40 MG OR CPDR 12/01/2011 - 01/10/2012 Provider: Valdez Stephens MD Diagnosis: Esophageal Reflux metFORMIN HCl 500 MG TABS 12/01/2011 - 05/17/2012 Provider: Valdez Stephens MD Diagnosis: Dm With Unspecified Complication Type Ii or Unspecified Type 2 in AM and 2 before dinner for glucose control Flexeril 10 MG OR TABS 12/01/2011 - 05/17/2012 Provider: Valdez Stephens MD Diagnosis: Lumbago 1 po tid prn Potassium Chloride Darshana ER 20 MEQ OR TBCR 12/01/2011 - 05/17 Provider: Valdez Stephens MD Diagnosis: Hypertension Unspeci fied Essential hydroCHLOROthiazide 25 MG TABS 12/01/2011 - 05/17/2012 Provi kassi: Valdez Stephens MD Diagnosis: Hypertension Unspeci fied Essential daily dilTIAZem HCl ER 120 MG OR CP24 12/01/2011 - 05/17/2012 Prov ider: Valdez Stephens MD Diagnosis: Hypertension Unspeci fied Essential D3-50 1.25 MG (80742 UT) OR CAPS 12/01/2011 - 01/22/2013 Pro vider: Valdez Stephens MD Diagnosis: Unspecified Vitamin D Deficiency [id number]-[id number]-[id number] 3.5-15012-1 OT SOLN 12/01/2011 - 12/10 Provider: Valdez Stephens MD Diagnosis: Otitis Externa, Infe ctive Unspecified Ambien CR 12.5 MG OR TBCR 12/01/2011 - 11/13/2012 Provider: Valdez Stephens MD Diagnosis: Persistent Disorder of Initiating or Maintaining Sleep dilTIAZem HCl ER 120 MG OR CP24 11/09/2011 - 12/01/2011 Prov ider: Valdez Stephens MD Diagnosis: Hypertension Unspeci fied Essential Bactrim DS 800-160 MG OR TABS 10/24/2011 - 12/01/2011 Provid er: Harish Mcmahan NP Diagnosis: Cellulitis and Absce ss of Trunk Lansoprazole 30 MG OR CPDR 10/16/2011 - 01/10/2012 Provider: Valdez Stephens MD Diagnosis: Omeprazole 40 MG OR CPDR 09/20/2011 - 12/01/2011 Provider: Valdez Stephens MD Diagnosis: Esophageal Reflux Flexeril 10 MG OR TABS 09/04/2011 - 12/01/2011 Provider: Valdez Stephens MD Diagnosis: Lumbago 1 po tid prn D3-50 1.25 MG (29668 UT) OR CAPS 09/04/2011 - 12/01/2011 Pro vider: Valdez Stephens MD Diagnosis: Unspecified Vitamin D Deficiency Synthroid 25 MCG OR TABS 06/05/2011 - 12/01/2011 Provider: Valdez Stephens MD Diagnosis: Unspecified Acquired Hypothyroidism hydroCHLOROthiazide 25 MG TABS 05/19/2011 - 12/01/2011 Provi kassi: Valdez Stephens MD Diagnosis: Hypertension Unspeci fied Essential daily Blood Glucose Test STRP 05/19/2011 - 05/28/2012 Provider: Valdez Stephens MD Diagnosis: Dm With Unspecified Complication Type Ii or Unspecified Type use as needed, up to 2 daily for contour meter Polyethylene Glycol 3350 17 GM/SCOOP OR POWD 05/19/2011 - Provider: Valdez Stephens MD Diagnosis: CONSTIPATION miralax 17 grams daily, adjusting up or down as needed to control constipation OTC Benefiber OR POWD 05/19/2011 - 01/14/2014 Provider: Valdez Stephens MD Diagnosis: CONSTIPATION 1 tblspoon PRN CONSTIPATION Ambien CR 12.5 MG OR TBCR 05/19/2011 - 12/01/2011 Provider: Valdez Stephens MD Diagnosis: Aspirin 325 MG OR TABS 05/19/2011 - 12/11/2011 Provider: Diagnosis: otc Potassium Chloride Darshana ER 20 MEQ OR TBCR 05/19/2011 - 11/30 Provider: Valdez Stephens MD Diagnosis: Hypertension Unspeci fied Essential Pulmicort Flexhaler 90 MCG/ACT IN AEPB 05/19/2011 - 12/01/19 12 Provider: Valdez Stephens MD Diagnosis: Emphysema Nec use daily, as directed Ambien CR 12.5 MG OR TBCR 05/01/2011 - 05/19/2011 Provider: Cullen Blackwell DO Diagnosis: Ambien CR 12.5 MG OR TBCR 04/03/2011 - 05/01/2011 Provider: Irena Bush NP Diagnosis: Flexeril 10 MG OR TABS 03/21/2011 - 06/05/2011 Provider: Valdez Stephens MD Diagnosis: Lumbago 1 po tid prn dilTIAZem HCl ER 180 MG OR CP24 02/27/2011 - 05/19/2011 Prov ider: Valdez Stephens MD Diagnosis: Hypertension Unspeci fied Essential traZODone HCl 100 MG OR TABS 02/27/2011 - 12/01/2011 Provide r: Valdez Stephens MD 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 2 po at bedtime and 2 again during the day prn neuropathy pa in Polyethylene Glycol 3350 17 GM/SCOOP OR POWD 02/27/2011 - Provider: Valdez Stephens MD Diagnosis: CONSTIPATION miralax 17 grams daily, adjusting up or down as needed to control constipation Ambien CR 12.5 MG OR TBCR 02/27/2011 - 04/03/2011 Provider: Valdez Stephens MD Diagnosis: D3-50 1.25 MG (32693 UT) OR CAPS 02/08/2011 - 06/05/2011 Pro vider: Valdez Stephens MD Diagnosis: Unspecified Vitamin D Deficiency dilTIAZem HCl ER Beads 360 MG OR CP24 02/08/2011 - 2 Provider: Valdez Stephens MD Diagnosis: Hypertension Unspeci fied Essential Omeprazole 40 MG OR CPDR 02/08/2011 - 09/20/2011 Provider: Valdez Stephens MD Diagnosis: Esophageal Reflux traZODone HCl 100 MG OR TABS 02/08/2011 - 02/27/2011 Provide r: Valdez Stephens MD 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 3 po at bedtime and 3 again during the day prn neuropathy pa in Synthroid 25 MCG OR TABS 02/08/2011 - 06/05/2011 Provider: Valdez Stephens MD Diagnosis: Unspecified Acquired Hypothyroidism Reglan 10 MG OR TABS 02/08/2011 - 02/27/2011 Provider: Valdez Stephens MD Diagnosis: Unspecified Disorder of Autonomic Nervous System Pravastatin Sodium 20 MG OR TABS 02/08/2011 - 12/01/2011 Pro vider: Valdez Stephens MD Diagnosis: Unspecified Hyperlip idemia Nec metFORMIN HCl 500 MG TABS 02/08/2011 - 12/01/2011 Provider: Valdez Stephens MD Diagnosis: Dm With Unspecified Complication Type Ii or Unspecified Type 2 in AM and 2 before dinner for glucose control Glucotrol XL 5 MG OR TB24 02/08/2011 - 12/01/2011 Provider: Valdez Stephens MD Diagnosis: Dm With Unspecified Complication Type Ii or Unspecified Type Flexeril 10 MG OR TABS 02/08/2011 - 03/21/2011 Provider: Valdez Stephens MD Diagnosis: Lumbago 1 po tid prn Potassium Chloride Darshana ER 20 MEQ OR TBCR 02/08/2011 - 05/19 Provider: Valdez Stephens MD Diagnosis: Hypertension Unspeci fied Essential Pulmicort Flexhaler 90 MCG/ACT IN AEPB 02/08/2011 - 05/19/19 12 Provider: Valdez Stephens MD Diagnosis: Emphysema Nec use daily, as directed Proventil HFA 108 (90 Base) MCG/ACT IN AERS 02/08/2011 - Provider: Valdez Stephens MD Diagnosis: Emphysema Nec Combivent 18-103 MCG/ACT IN AERO 02/08/2011 - 12/01/2011 Pro vider: Valdez Stephens MD Diagnosis: Emphysema Nec Benefiber OR POWD 02/08/2011 - 05/19/2011 Provider: Valdez Stephens MD Diagnosis: CONSTIPATION 1 tblspoon PRN CONSTIPATION Polyethylene Glycol 3350 17 GM/SCOOP OR POWD 02/08/2011 - Provider: Valdez Stephens MD Diagnosis: CONSTIPATION 17 grams up to twice a day as needed for constipation dilTIAZem HCl ER 120 MG OR CP24 01/19/2011 - 10/16/2011 Prov ider: Valdez Stephens MD Diagnosis: Hypertension Unspeci fied Essential increse back to 3 once a day, Pravastatin Sodium 20 MG OR TABS 01/19/2011 - 02/08/2011 Pro vider: Valdez Stephens MD Diagnosis: Unspecified Hyperlip idemia Nec Glucotrol XL 5 MG OR TB24 12/23/2010 - 02/08/2011 Provider: Valdez Stephens MD Diagnosis: Dm With Unspecified Complication Type Ii or Unspecified Type Ambien CR 12.5 MG OR TBCR 12/02/2010 - 02/27/2011 Provider: Valdez Stephens MD Diagnosis: Flexeril 10 MG OR TABS 11/15/2010 - 02/08/2011 Provider: Valdez Stephens MD Diagnosis: Lumbago 1 po tid prn Zolpidem Tartrate 10 MG OR TABS 10/26/2010 - 12/02/2010 Prov ider: Valdez Stephens MD 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 traZODone HCl 100 MG OR TABS 10/26/2010 - 02/08/2011 Provide r: Valdez Stephens MD 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 3 po at bedtime and 3 again during the day prn neuropathy pa in Synthroid 25 MCG OR TABS 10/26/2010 - 02/08/2011 Provider: Valdez Stephens MD Diagnosis: Unspecified Acquired Hypothyroidism Reglan 10 MG OR TABS 10/26/2010 - 02/08/2011 Provider: Valdez Stephens MD Diagnosis: Unspecified Disorder of Autonomic Nervous System Pulmicort Flexhaler 90 MCG/ACT IN AEPB 10/26/2010 - 02/09/20 Provider: Valdez Stephens MD Diagnosis: Emphysema Nec use daily, as directed Proventil HFA 108 (90 Base) MCG/ACT IN AERS 10/26/2010 - 12/2010 Provider: Valdez Stephens MD Diagnosis: Emphysema Nec Omeprazole 40 MG OR CPDR 10/26/2010 - 02/08/2011 Provider: Valdez Stephens MD Diagnosis: metFORMIN HCl 500 MG TABS 10/26/2010 - 02/08/2011 Provider: Valdez Stephens MD Diagnosis: Dm With Unspecified Complication Type Ii or Unspecified Type 01/09 change to 2 in AM and 2 before dinner for glucose con trol Glucotrol XL 5 MG OR TB24 10/26/2010 - 12/02/2010 Provider: Valdez Stephens MD Diagnosis: Dm With Unspecified Complication Type Ii or Unspecified Type dilTIAZem HCl ER 120 MG OR CP24 10/26/2010 - 01/19/2011 Prov ider: Valdez Stephens MD Diagnosis: Hypertension Unspeci fied Essential increse back to 3 once a day, Potassium Chloride Darshana ER 20 MEQ OR TBCR 10/26/2010 - 02/08 Provider: Valdez Stephens MD Diagnosis: Hypertension Unspeci fied Essential hydroCHLOROthiazide 25 MG TABS 10/26/2010 - 05/19/2011 Provi kassi: Valdez Stephens MD Diagnosis: Hypertension Unspeci fied Essential daily Pravastatin Sodium 20 MG OR TABS 10/26/2010 - 01/19/2011 Pro vider: Valdez Stephens MD Diagnosis: Unspecified Hyperlip idemia Nec Vitamin D 26782 UNIT OR CAPS 10/26/2010 - 12/01/2011 Provide r: Valdez Stephens MD Diagnosis: Unspecified Vitamin D Deficiency 1 po monthly hydroCHLOROthiazide 25 MG TABS 10/18/2010 - 10/26/2010 Provi kassi: Valdez Stephens MD Diagnosis: Hypertension Unspeci fied Essential 3 times a week Flexeril 10 MG OR TABS 10/18/2010 - 11/15/2010 Provider: Valdez Stephens MD Diagnosis: Lumbago 1 po tid prn LORazepam 1 MG TABS 09/23/2010 - 10/26/2010 Provider: Valdez Stephens MD Diagnosis: Generalized Anxiety Disorder take one to two up to three times a day PRN ANXIETY OR SLEE P CODE A MDD=5 Omeprazole 40 MG OR CPDR 08/25/2010 - 10/26/2010 Provider: Valdez Stephens MD Diagnosis: Pulmicort Flexhaler 90 MCG/ACT IN AEPB 07/27/2010 - 10/27/19 Provider: Valdez Stephens MD Diagnosis: Emphysema Nec use daily, as directed Proventil HFA 108 (90 Base) MCG/ACT IN AERS 07/27/2010 - Provider: Valdez Stephens MD Diagnosis: Emphysema Nec Protonix 40 MG OR TBEC 07/27/2010 - 08/25/2010 Provider: Valdez Stephens MD Diagnosis: Unspecified Disorder of Autonomic Nervous System Potassium Chloride Darshana ER 20 MEQ OR TBCR 07/27/2010 - 10/26 Provider: Valdez Stephens MD Diagnosis: Hypertension Unspeci fied Essential Lisinopril 10 MG OR TABS 07/27/2010 - 10/26/2010 Provider: Valdez Stephens MD Diagnosis: Hypertension Unspeci fied Essential hydroCHLOROthiazide 25 MG TABS 07/27/2010 - 10/18/2010 Provi kassi: Valdez Stephens MD Diagnosis: Hypertension Unspeci fied Essential 3 times a week Flexeril 10 MG OR TABS 07/27/2010 - 10/18/2010 Provider: Valdez Stephens MD Diagnosis: Lumbago 1 po tid prn dilTIAZem HCl ER 120 MG OR CP24 07/27/2010 - 10/26/2010 Prov ider: Valdez Stephens MD Diagnosis: Hypertension Unspeci fied Essential decrease from 3 once a day, Combivent 18-103 MCG/ACT IN AERO 07/27/2010 - 02/08/2011 Pro vider: Valdez Stephens MD Diagnosis: Emphysema Nec Synthroid 25 MCG OR TABS 07/27/2010 - 10/26/2010 Provider: Valdez Stephens MD Diagnosis: Unspecified Acquired Hypothyroidism Vitamin D 78854 UNIT OR CAPS 07/27/2010 - 07/27/2010 Provide r: Valdez Stephens MD Diagnosis: Unspecified Vitamin D Deficiency 1 po monthly Reglan 10 MG OR TABS 07/27/2010 - 10/26/2010 Provider: Valdez Stephens MD Diagnosis: Unspecified Disorder of Autonomic Nervous System traZODone HCl 100 MG OR TABS 07/27/2010 - 10/26/2010 Provide r: Valdez Stephens MD 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 3 po at bedtime and 3 again during the day prn neuropathy pa in Vitamin D 79150 UNIT OR CAPS 07/27/2010 - 10/26/2010 Provide r: Valdez Stephens MD Diagnosis: Unspecified Vitamin D Deficiency 1 po monthly Protonix 40 MG OR TBEC 07/27/2010 - 07/27/2010 Provider: Valdez Stephens MD Diagnosis: Unspecified Disorder of Autonomic Nervous System metFORMIN HCl 500 MG TABS 07/27/2010 - 10/26/2010 Provider: Valdez Stephens MD Diagnosis: Dm With Unspecified Complication Type Ii or Unspecified Type 10/10 change to 2 in AM and 2 before dinner for glucose con trol Blood Glucose Test STRP 07/27/2010 - 07/27/2010 Provider: Valdez Stephens MD Diagnosis: Dm With Unspecified Complication Type Ii or Unspecified Type use as needed, up to 2 daily for contour meter Flexeril 10 MG OR TABS 07/27/2010 - 07/27/2010 Provider: Valdez Stephens MD Diagnosis: Lumbago 1 po tid prn Potassium Chloride Darshana ER 20 MEQ OR TBCR 07/27/2010 - 07/27 Provider: Valdez Stephens MD Diagnosis: Hypertension Unspeci fied Essential Lisinopril 10 MG OR TABS 07/27/2010 - 07/27/2010 Provider: Valdez Stephens MD Diagnosis: Hypertension Unspeci fied Essential hydroCHLOROthiazide 25 MG TABS 07/27/2010 - 07/27/2010 Provi kassi: Valdez Stephens MD Diagnosis: Hypertension Unspeci fied Essential 3 times a week dilTIAZem HCl ER 120 MG OR CP24 07/27/2010 - 07/27/2010 Prov ider: Valdez Stephens MD Diagnosis: Hypertension Unspeci fied Essential decrease from 3 once a day, Proventil HFA 108 (90 Base) MCG/ACT IN AERS 07/27/2010 - Provider: Valdez Stephens MD Diagnosis: Emphysema Nec Pulmicort Flexhaler 90 MCG/ACT IN AEPB 07/27/2010 - 07/28/19 11 Provider: Valdez Stephens MD Diagnosis: Emphysema Nec use daily, as directed Combivent 18-103 MCG/ACT IN AERO 07/27/2010 - 07/27/2010 Pro vider: Valdez Stephens MD Diagnosis: Emphysema Nec Glucotrol XL 5 MG OR TB24 07/27/2010 - 10/26/2010 Provider: Valdez Stephens MD Diagnosis: Dm With Unspecified Complication Type Ii or Unspecified Type Blood Glucose Test STRP 07/27/2010 - 05/19/2011 Provider: Valdez Stephens MD Diagnosis: Dm With Unspecified Complication Type Ii or Unspecified Type use as needed, up to 2 daily for contour meter Reglan 10 MG OR TABS 07/27/2010 - 07/27/2010 Provider: Valdez Stephens MD Diagnosis: Unspecified Disorder of Autonomic Nervous System Synthroid 25 MCG OR TABS 07/27/2010 - 07/27/2010 Provider: Valdez Stephens MD Diagnosis: Unspecified Acquired Hypothyroidism traZODone HCl 100 MG OR TABS 07/27/2010 - 07/27/2010 Provide r: Valdez Stephens MD 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 3 po at bedtime and 3 again during the day prn neuropathy pa in Medrol (Jasen) 4 MG OR TABS 07/25/2010 - 10/26/2010 Provider: Harish Mcmahan [employer] Diagnosis: LORazepam 1 MG TABS 06/29/2010 - 08/25/2010 Provider: Valdez Stephens MD Diagnosis: Generalized Anxiety Disorder take one to two up to three times a day PRN ANXIETY OR SLEE P CODE A MDD=5 Cipro 500 MG OR TABS 05/22/2010 - 07/27/2010 Provider: Harish Mcmahan NP Diagnosis: Combivent 18-103 MCG/ACT IN AERO 04/13/2010 - 07/27/2010 Pro vider: Valdez Stephens MD Diagnosis: Emphysema Nec traZODone HCl 100 MG OR TABS 04/06/2010 - 07/27/2010 Provide r: Valdez Stephens MD 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 3 po at bedtime and 3 again during the day prn neuropathy pa in Protonix 40 MG OR TBEC 04/06/2010 - 07/27/2010 Provider: Valdez Stephens MD Diagnosis: Unspecified Disorder of Autonomic Nervous System Potassium Chloride Darshana ER 20 MEQ OR TBCR 04/06/2010 - 07/27 Provider: Valdez Stephens MD Diagnosis: Hypertension Unspeci fied Essential dilTIAZem HCl ER 120 MG OR CP24 04/06/2010 - 07/27/2010 Prov ider: Valdez Stephens MD Diagnosis: Hypertension Unspeci fied Essential decrease from 3 once a day, Synthroid 25 MCG OR TABS 04/06/2010 - 04/06/2010 Provider: Valdez Stephens MD Diagnosis: Unspecified Acquired Hypothyroidism traZODone HCl 100 MG OR TABS 04/06/2010 - 04/06/2010 Provide r: Valdez Stephens MD 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 3 po at bedtime and 3 again during the day prn neuropathy pa in Reglan 10 MG OR TABS 04/06/2010 - 04/06/2010 Provider: Valdez Stephens MD Diagnosis: Unspecified Disorder of Autonomic Nervous System Protonix 40 MG OR TBEC 04/06/2010 - 04/06/2010 Provider: Valdez Stephens MD Diagnosis: Unspecified Disorder of Autonomic Nervous System Potassium Chloride Darshana ER 20 MEQ OR TBCR 04/06/2010 - 04/06 Provider: Valdez Stephens MD Diagnosis: Hypertension Unspeci fied Essential dilTIAZem HCl ER 120 MG OR CP24 04/06/2010 - 04/06/2010 Prov ider: Valdez Stephens MD Diagnosis: Hypertension Unspeci fied Essential decrease from 3 once a day, Proventil HFA 108 (90 Base) MCG/ACT IN AERS 04/06/2010 - Provider: Valdez Stephens MD Diagnosis: Blood Glucose Test STRP 04/06/2010 - 04/06/2010 Provider: Valdez Stephens MD Diagnosis: use as needed, up to 2 daily for contour meter metFORMIN HCl 500 MG TABS 04/06/2010 - 04/06/2010 Provider: Valdez Stephens MD Diagnosis: Dm With Unspecified Complication Type Ii or Unspecified Type 01/09 change to 2 in AM and 2 before dinner for glucose con trol Aspir-Low 81 MG OR TBEC 04/06/2010 - 05/19/2011 Provider: Valdez Stephens MD Diagnosis: Dm With Unspecified Complication Type Ii or Unspecified Type LORazepam 1 MG TABS 04/06/2010 - 06/29/2010 Provider: Valdez Stephens MD Diagnosis: Generalized Anxiety Disorder take one to two up to three times a day PRN ANXIETY OR SLEE PCODE A mdd 5 Melatonin 3 MG OR TABS 04/06/2010 - 12/11/2011 Provider: Diagnosis: Melatonin 5 MG OR TABS 04/06/2010 - 05/19/2011 Provider: Diagnosis: Flexeril 10 MG OR TABS 04/06/2010 - 07/27/2010 Provider: Valdez Stephens MD Diagnosis: Lumbago 1 po tid prn Vitamin D 68426 UNIT OR CAPS 04/06/2010 - 07/27/2010 Provide r: Valdez Stephens MD Diagnosis: Unspecified Vitamin D Deficiency 1 po monthly Pulmicort Flexhaler 90 MCG/ACT IN AEPB 04/06/2010 - 07/28/19 11 Provider: Valdez Stephens MD Diagnosis: Emphysema Nec use daily, as directed Combivent 18-103 MCG/ACT IN AERO 04/06/2010 - 04/13/2010 Pro vider: Valdez Stephens MD Diagnosis: Emphysema Nec Synthroid 25 MCG OR TABS 04/06/2010 - 07/27/2010 Provider: Valdez Stephens MD Diagnosis: Unspecified Acquired Hypothyroidism metFORMIN HCl 500 MG TABS 04/06/2010 - 07/27/2010 Provider: Valdez Stephens MD Diagnosis: Dm With Unspecified Complication Type Ii or Unspecified Type 01/09 change to 2 in AM and 2 before dinner for glucose con trol Blood Glucose Test STRP 04/06/2010 - 07/27/2010 Provider: Valdez Stephens MD Diagnosis: use as needed, up to 2 daily for contour meter Reglan 10 MG OR TABS 04/06/2010 - 07/27/2010 Provider: Valdez Stephens MD Diagnosis: Unspecified Disorder of Autonomic Nervous System Synthroid 25 MCG OR TABS 12/31/2009 - 04/06/2010 Provider: Valdez Stephens MD Diagnosis: Unspecified Acquired Hypothyroidism Reglan 10 MG OR TABS 12/31/2009 - 04/06/2010 Provider: Valdez Stephens MD Diagnosis: Unspecified Disorder of Autonomic Nervous System quiNINE HCl Dihydrate DARSHANA 12/31/2009 - 07/27/2010 Provider: Valdez Stephens MD Diagnosis: Spasm of Muscle otc prep for cramps Protonix 40 MG OR TBEC 12/31/2009 - 04/06/2010 Provider: Valdez Stephens MD Diagnosis: Unspecified Disorder of Autonomic Nervous System Potassium Chloride Darshana ER 20 MEQ OR TBCR 12/31/2009 - 04/06 Provider: Valdez Stephens MD Diagnosis: Hypertension Unspeci fied Essential metFORMIN HCl 500 MG TABS 12/31/2009 - 12/31/2009 Provider: Valdez Stephens MD Diagnosis: 2 in AM and three before dinner for glucose control LORazepam 1 MG TABS 12/31/2009 - 04/06/2010 Provider: Valdez Stephens MD Diagnosis: Generalized Anxiety Disorder take one 3 times a day PRN ANXIETY OR SLEEPCODE A mdd 3 Lisinopril 10 MG OR TABS 12/31/2009 - 07/27/2010 Provider: Valdez Stephens MD Diagnosis: Hypertension Unspeci fied Essential Lipitor 10 MG OR TABS 12/31/2009 - 04/06/2010 Provider: Valdez Stephens MD Diagnosis: Unspecified Hyperlip idemia Nec hydroCHLOROthiazide 25 MG TABS 12/31/2009 - 07/27/2010 Provi kassi: Valdez Stephens MD Diagnosis: Hypertension Unspeci fied Essential 3 times a week dilTIAZem HCl ER 120 MG OR CP24 12/31/2009 - 04/06/2010 Prov ider: Valdez Stephens MD Diagnosis: Hypertension Unspeci fied Essential decrease from 3 once a day, Glucotrol XL 5 MG OR TB24 12/31/2009 - 12/31/2009 Provider: Valdez Stephens MD Diagnosis: Aspir-Low 81 MG OR TBEC 12/31/2009 - 04/06/2010 Provider: Valdez Stephens MD Diagnosis: Vitamin D 82009 UNIT OR CAPS 12/31/2009 - 04/06/2010 Provide r: Valdez Stephens MD Diagnosis: Unspecified Vitamin D Deficiency 1 po monthly metFORMIN HCl 500 MG TABS 12/31/2009 - 04/06/2010 Provider: Valdez Stephens MD Diagnosis: Dm With Unspecified Complication Type Ii or Unspecified Type 01/09 change to 2 in AM and 2 before dinner for glucose con trol traZODone HCl 100 MG OR TABS 12/31/2009 - 04/06/2010 Provide r: Valdez Stephens MD 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 3 po at bedtime and 3 again during the day prn neuropathy pa in Glucotrol XL 5 MG OR TB24 12/31/2009 - 07/27/2010 Provider: Valdez Stephens MD Diagnosis: Dm With Unspecified Complication Type Ii or Unspecified Type decrease to once a day 01/09 Flexeril 10 MG OR TABS 11/23/2009 - 04/06/2010 Provider: Valdez Stephens MD Diagnosis: 1 po tid prn Lipitor 10 MG OR TABS 09/01/2009 - 12/31/2009 Provider: Valdez Stephens MD Diagnosis: Unspecified Hyperlip idemia Nec LORazepam 1 MG TABS 09/01/2009 - 12/31/2009 Provider: Valdez Stephens MD Diagnosis: Generalized Anxiety Disorder take one 3 times a day PRN ANXIETY OR SLEEPCODE A mdd 3 hydroCHLOROthiazide 25 MG TABS 09/01/2009 - 12/31/2009 Provi kassi: Valdez Stephens MD Diagnosis: Hypertension Unspeci fied Essential 3 times a week Lisinopril 10 MG OR TABS 09/01/2009 - 12/31/2009 Provider: Valdez Stephens MD Diagnosis: Hypertension Unspeci fied Essential metFORMIN HCl 500 MG TABS 09/01/2009 - 12/31/2009 Provider: Valdez Stephens MD Diagnosis: 2 in AM and three before dinner for glucose control Potassium Chloride Darshana ER 20 MEQ OR TBCR 09/01/2009 - 12/31 Provider: Valdez Stephens MD Diagnosis: Hypertension Unspeci fied Essential Pulmicort Flexhaler 90 MCG/ACT IN AEPB 09/01/2009 - 04/06/19 11 Provider: Valdez Stephens MD Diagnosis: use daily, as directed Synthroid 25 MCG OR TABS 09/01/2009 - 09/01/2009 Provider: Valdez Stephens MD Diagnosis: Vitamin D 23048 UNIT OR CAPS 09/01/2009 - 09/01/2009 Provide r: Valdez Stephens MD Diagnosis: 1 po monthly Proventil HFA 108 (90 Base) MCG/ACT IN AERS 09/01/2009 - 07/2010 Provider: Valdez Stephens MD Diagnosis: Blood Glucose Test STRP 09/01/2009 - 04/06/2010 Provider: Valdez Stephens MD Diagnosis: use as needed, up to 2 daily for contour meter Reglan 10 MG OR TABS 09/01/2009 - 09/01/2009 Provider: Valdez Stephens MD Diagnosis: LORazepam 1 MG TABS 09/01/2009 - 09/01/2009 Provider: Valdez Stephens MD Diagnosis: Generalized Anxiety Disorder take one 6 times a day PRN ANXIETY OR SLEEPCODE A mdd 6 dilTIAZem HCl ER 120 MG OR CP24 09/01/2009 - 12/31/2009 Prov ider: Valdez Stephens MD Diagnosis: Hypertension Unspeci fied Essential decrease from 3 once a day, Reglan 10 MG OR TABS 09/01/2009 - 12/31/2009 Provider: Valdez Stephens MD Diagnosis: Unspecified Disorder of Autonomic Nervous System Synthroid 25 MCG OR TABS 09/01/2009 - 12/31/2009 Provider: Valdez Stephens MD Diagnosis: Unspecified Acquired Hypothyroidism Protonix 40 MG OR TBEC 09/01/2009 - 12/31/2009 Provider: Valdez Stephens MD Diagnosis: Unspecified Disorder of Autonomic Nervous System traZODone HCl 100 MG OR TABS 09/01/2009 - 12/31/2009 Provide r: Valdez Stephens MD 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 3 po at bedtime and 3 again during the day prn neuropathy pa in Vitamin D 94204 UNIT OR CAPS 09/01/2009 - 12/31/2009 Provide r: Valdez Stephens MD Diagnosis: Unspecified Vitamin D Deficiency 1 po monthly quiNINE HCl Dihydrate DARSHANA 09/01/2009 - 12/31/2009 Provider: Valdez Stephens MD Diagnosis: Spasm of Muscle otc prep for cramps traZODone HCl 100 MG OR TABS 08/20/2009 - 09/01/2009 Provide r: Valdez Stephens MD Diagnosis: Dm With Unspecified Complication Type Ii or Unspecified Type 3 po at bedtime and 3 again during the day prn neuropathy pa in traZODone HCl 100 MG OR TABS 08/19/2009 - 08/19/2009 Provide r: Valdez Stephens MD Diagnosis: Dm With Unspecified Complication Type Ii or Unspecified Type 3 po at bedtime and 3 again during the day prn neuropathy pa in Synthroid 25 MCG OR TABS 05/21/2009 - 09/01/2009 Provider: Valdez Stephens MD Diagnosis: Pulmicort Flexhaler 90 MCG/ACT IN AEPB 05/21/2009 - 09/02/19 Provider: Valdez Stephens MD Diagnosis: use daily, as directed Protonix 40 MG OR TBEC 05/21/2009 - 09/01/2009 Provider: Valdez Stephens MD Diagnosis: Potassium Chloride Darshana ER 20 MEQ OR TBCR 05/21/2009 - 09/01 Provider: Valdez Stephens MD Diagnosis: Hypertension Unspeci fied Essential metFORMIN HCl 500 MG TABS 05/21/2009 - 09/01/2009 Provider: Valdez Stephens MD Diagnosis: 2 in AM and three before dinner for glucose control Lisinopril 10 MG OR TABS 05/21/2009 - 09/01/2009 Provider: Valdez Stephens MD Diagnosis: Hypertension Unspeci fied Essential Lipitor 10 MG OR TABS 05/21/2009 - 09/01/2009 Provider: Valdez Stephens MD Diagnosis: hydroCHLOROthiazide 25 MG TABS 05/21/2009 - 09/01/2009 Provi kassi: Valdez Stephens MD Diagnosis: Hypertension Unspeci fied Essential 3 times a week Glucotrol XL 5 MG OR TB24 05/21/2009 - 09/01/2009 Provider: Valdez Stephens MD Diagnosis: dilTIAZem HCl ER 120 MG OR CP24 05/21/2009 - 05/21/2009 Prov ider: Valdez Stephens MD Diagnosis: Combivent 18-103 MCG/ACT IN AERO 05/21/2009 - 04/06/2010 Pro vider: Valdez Stephens MD Diagnosis: 2 puffs qid prn Flexeril 10 MG OR TABS 05/21/2009 - 12/31/2009 Provider: Valdez Stephens MD Diagnosis: 1 po tid prn Vitamin D 68019 UNIT OR CAPS 05/21/2009 - 09/01/2009 Provide r: Valdez Stephens MD Diagnosis: 1 po monthly dilTIAZem HCl ER 120 MG OR CP24 05/21/2009 - 09/01/2009 Prov ider: Valdez Stephens MD Diagnosis: Hypertension Unspeci fied Essential decrease from 3 once a day, restarting lisinopril 05/12 traZODone HCl 100 MG OR TABS 05/21/2009 - 08/19/2009 Provide r: Valdez Stephens MD Diagnosis: Dm With Unspecified Complication Type Ii or Unspecified Type 3 po at bedtime and 3 again during the day prn neuropathy pa in LORazepam 1 MG TABS 05/21/2009 - 09/01/2009 Provider: Valdez Stephens MD Diagnosis: Generalized Anxiety Disorder take one 6 times a day PRN ANXIETY OR SLEEPCODE A mdd 6 LORazepam 1 MG TABS 05/12/2009 - 05/21/2009 Provider: Valdez Stephens MD Diagnosis: Generalized Anxiety Disorder take one 5 times a day PRN ANXIETY OR SLEEPCODE A mdd 5 Reglan 10 MG OR TABS 04/30/2009 - 09/01/2009 Provider: Valdez Stephens MD Diagnosis: traZODone HCl 100 MG OR TABS 02/12/2009 - 05/21/2009 Provide r: Valdez Stephens MD Diagnosis: Dm With Unspecified Complication Type Ii or Unspecified Type 3 po at bedtime and 3 again during the day prn neuropathy pa in LORazepam 1 MG TABS 02/12/2009 - 05/12/2009 Provider: Valdez Stephens MD Diagnosis: Generalized Anxiety Disorder take one 5 times a day PRN ANXIETY OR SLEEPCODE A mdd 5 SMZ-TMP DS 800-160 MG OR TABS 02/12/2009 - 05/21/2009 Provid er: Valdez Stephens MD Diagnosis: Urinary Tract Infect ion Site Not Specified Pyridium 200 MG OR TABS 02/12/2009 - 05/21/2009 Provider: Valdez Stephens MD Diagnosis: Urinary Tract Infect ion Site Not Specified hydroCHLOROthiazide 25 MG TABS 02/12/2009 - 05/21/2009 Provi kassi: Valdez Stephens MD Diagnosis: Hypertension Unspeci fied Essential 3 times a week Pocket Spacer TEMITOPE 01/25/2009 - 12/01/2011 Provider: Cullen Blackwell DO Diagnosis: predniSONE 20 MG OR TABS 01/25/2009 - 01/25/2009 Provider: Cullen Blackwell DO Diagnosis: one TID for 3 days, one BID for 3 days , one daily for 3 days, and 1/2 tab daily for 3 days Amoxicillin 500 MG OR TABS 01/25/2009 - 02/12/2009 Provider: Cullen Blackwell DO Diagnosis: predniSONE 20 MG OR TABS 01/25/2009 - 02/12/2009 Provider: Cullen Blackwell DO Diagnosis: one TID for 3 days, one BID for 3 days , one daily for 3 days, and 1/2 tab daily for 3 days Synthroid 25 MCG OR TABS 11/27/2008 - 05/21/2009 Provider: Valdez Stephens MD Diagnosis: Reglan 10 MG OR TABS 11/27/2008 - 04/30/2009 Provider: Valdez Stephens MD Diagnosis: Potassium Chloride Darshana ER 20 MEQ OR TBCR 11/27/2008 - 05/21 Provider: Valdez Stephens MD Diagnosis: Hypertension Unspeci fied Essential LORazepam 1 MG TABS 11/27/2008 - 02/12/2009 Provider: Valdez Stephens MD Diagnosis: 1 TID PRN ANXIETY OR SLEEPCODE A Flexeril 10 MG OR TABS 11/27/2008 - 05/21/2009 Provider: Valdez Stephens MD Diagnosis: 1 po tid prn Vitamin D 72052 UNIT OR CAPS 11/27/2008 - 05/21/2009 Provide r: Valdez Stephens MD Diagnosis: 1 po monthly Blood Glucose Test [facility] 11/27/2008 - 09/01/2009 Provider: Valdez Stephens MD Diagnosis: use as needed, up to 2 daily for contour meter Pulmicort Flexhaler 90 MCG/ACT IN AEPB 11/27/2008 - 05/21/19 10 Provider: Valdez Stephens MD Diagnosis: use daily, as directed metFORMIN HCl 500 MG TABS 11/27/2008 - 05/21/2009 Provider: Valdez Stephens MD Diagnosis: 2 in AM and three before dinner for glucose control dilTIAZem HCl ER 120 MG OR CP24 11/27/2008 - 05/21/2009 Prov ider: Valdez Stephens MD Diagnosis: hydroCHLOROthiazide 25 MG TABS 11/27/2008 - 02/12/2009 Provi kassi: Valdez Stephens MD Diagnosis: Lipitor 10 MG OR TABS 11/27/2008 - 05/21/2009 Provider: Valdez Stephens MD Diagnosis: traZODone HCl 100 MG OR TABS 11/27/2008 - 02/12/2009 Provide r: Valdez Stephens MD Diagnosis: 2 po at bedtime and 2 again during the day prn Combivent 18-103 MCG/ACT IN AERO 11/27/2008 - 05/21/2009 Pro vider: Valdez Stephens MD Diagnosis: 2 puffs qid prn Glucotrol XL 5 MG OR TB24 11/27/2008 - 05/21/2009 Provider: Valdez Stephens MD Diagnosis: Lisinopril 10 MG OR TABS 11/27/2008 - 05/21/2009 Provider: Valdez Stephens MD Diagnosis: Hypertension Unspeci fied Essential Proventil HFA 108 (90 Base) MCG/ACT IN AERS 11/27/2008 - 05/2009 Provider: Valdez Stephens MD Diagnosis: Protonix 40 MG OR TBEC 11/16/2008 - 05/21/2009 Provider: Valdez Stephens MD Diagnosis: traZODone HCl 100 MG OR TABS 09/03/2008 - 11/27/2008 Provide r: Valdez Stephens MD Diagnosis: 2 po at bedtime and 2 again during the day prn Lipitor 10 MG OR TABS 09/03/2008 - 11/27/2008 Provider: Valdez Stephens MD Diagnosis: Protonix 40 MG OR TBEC 08/28/2008 - 11/16/2008 Provider: Valdez Stephens MD Diagnosis: Reglan 10 MG OR TABS 08/28/2008 - 11/27/2008 Provider: Valdez Stephens MD Diagnosis: Lipitor 10 MG OR TABS 08/28/2008 - 09/03/2008 Provider: Valdez Stephens MD Diagnosis: Flexeril 10 MG OR TABS 08/28/2008 - 11/27/2008 Provider: Valdez Stephens MD Diagnosis: 1 po tid prn Synthroid 25 MCG OR TABS 08/28/2008 - 11/27/2008 Provider: Valdez Stephens MD Diagnosis: Vitamin D 17817 UNIT OR CAPS 08/28/2008 - 11/27/2008 Provide r: Valdez Stephens MD Diagnosis: 1 po monthly Glucotrol XL 5 MG OR TB24 08/28/2008 - 11/27/2008 Provider: Valdez Stephens MD Diagnosis: Blood Glucose Test STRP 08/28/2008 - 11/27/2008 Provider: Valdez Stephens MD Diagnosis: use as needed, up to 2 daily for contour meter dilTIAZem HCl ER 120 MG OR CP24 08/28/2008 - 11/27/2008 Prov ider: Valdez Stephens MD Diagnosis: Pulmicort Flexhaler 90 MCG/ACT IN AEPB 08/28/2008 - 11/28/19 Provider: Valdez Stephens MD Diagnosis: use daily, as directed metFORMIN HCl 500 MG TABS 08/28/2008 - 11/27/2008 Provider: Valdez Stephens MD Diagnosis: 2 in AM and three before dinner for glucose control hydroCHLOROthiazide 25 MG TABS 08/28/2008 - 11/27/2008 Provi kassi: Valdez Stephens MD Diagnosis: Lisinopril 10 MG OR TABS 08/28/2008 - 11/27/2008 Provider: Valdez Stephens MD Diagnosis: Hypertension Unspeci fied Essential Potassium Chloride Darshana ER 20 MEQ OR TBCR 08/28/2008 - 11/27 Provider: Valdez Stephens MD Diagnosis: Hypertension Unspeci fied Essential traZODone HCl 100 MG OR TABS 08/28/2008 - 09/03/2008 Provide r: Valdez Stephens MD Diagnosis: 2 po at bedtime and 2 again during the day prn LORazepam 1 MG TABS 08/28/2008 - 11/27/2008 Provider: Valdez Stephens MD Diagnosis: 1 TID PRN ANXIETY OR SLEEPCODE A hydroCHLOROthiazide 25 MG TABS 07/03/2008 - 08/28/2008 Provi kassi: Valdez Stephens MD Diagnosis: Pyridium 200 MG OR TABS 06/16/2008 - 08/28/2008 Provider: Arnol Gaston RPA-C Diagnosis: Cipro 500 MG OR TABS 06/16/2008 - 08/28/2008 Provider: Arnol Gaston RPA-C Diagnosis: LORazepam 1 MG TABS 06/01/2008 - 08/28/2008 Provider: Valdez Stephens MD Diagnosis: 1 BID PRN ANXIETY OR SLEEPCODE A Viagra 100 MG OR TABS 06/01/2008 - 11/27/2008 Provider: Valdez Stephens MD Diagnosis: Symptoms Associated With Female Genital Organs Nec half a tab as directed prn metFORMIN HCl 500 MG TABS 06/01/2008 - 08/28/2008 Provider: Valdez Stephens MD Diagnosis: 2 in AM and three before dinner for glucose control Lisinopril 20 MG OR TABS 05/29/2008 - 08/28/2008 Provider: Valdez Stephens MD Diagnosis: half tab po daily Sulfamethoxazole-Trimethoprim 800-160 MG OR TABS 03/18/2008 - 03/18/2008 Provider: Valdez Stephens MD Diagnosis: Sulfamethoxazole-Trimethoprim 800-160 MG OR TABS 03/18/2008 - 06/01/2008 Provider: Valdez Stephens MD Diagnosis: Pyridium 200 MG OR TABS 03/18/2008 - 06/01/2008 Provider: Valdez Stephens MD Diagnosis: Pulmicort Flexhaler 90 MCG/ACT IN INHA 03/04/2008 - 03/04/20 08 Provider: Valdez Stephens MD Diagnosis: use daily, as directed Pulmicort Flexhaler 90 MCG/ACT IN INHA 03/04/2008 - 08/29/19 09 Provider: Valdez Stephens MD Diagnosis: use daily, as directed Albuterol 90 MCG/ACT IN AERS 03/04/2008 - 11/27/2008 Provide r: Valdez Stephens MD Diagnosis: Diltiazem HCl 120 MG OR CP24 03/04/2008 - 08/28/2008 Provide r: Valdez Stephens MD Diagnosis: Albuterol 90 MCG/ACT IN AERS 03/04/2008 - 03/04/2008 Provide r: Valdez Stephens MD Diagnosis: Combivent 18-103 MCG/ACT IN AERO 03/02/2008 - 11/27/2008 Pro vider: Valdez Stephens MD Diagnosis: 2 puffs qid prn Reglan 10 MG OR TABS 03/02/2008 - 08/28/2008 Provider: Valdez Stephens MD Diagnosis: Protonix 40 MG OR TBEC 03/02/2008 - 08/28/2008 Provider: Valdez Stephens MD Diagnosis: hydroCHLOROthiazide 25 MG TABS 03/02/2008 - 07/03/2008 Provi kassi: Valdez Stephens MD Diagnosis: Diltiazem HCl 120 MG OR CP24 03/02/2008 - 03/04/2008 Provide r: Valdez Stephens MD Diagnosis: traZODone HCl 100 MG OR TABS 03/02/2008 - 08/28/2008 Provide r: Valdez Stephens MD Diagnosis: 2 po at bedtime and 2 again during the day prn Flexeril 10 MG OR TABS 03/02/2008 - 08/28/2008 Provider: Valdez Stephens MD Diagnosis: 1 po tid prn Lisinopril 20 MG OR TABS 03/02/2008 - 05/29/2008 Provider: Valdez Stephens MD Diagnosis: half tab po daily Lipitor 10 MG OR TABS 03/02/2008 - 08/28/2008 Provider: Valdez Stephens MD Diagnosis: metFORMIN HCl 500 MG TABS 03/02/2008 - 06/01/2008 Provider: Valdez Stephens MD Diagnosis: AM and before dinner for glucose control Synthroid 25 MCG OR TABS 03/02/2008 - 08/28/2008 Provider: Valdez Stephens MD Diagnosis: Vitamin D 76445 UNIT OR CAPS 03/02/2008 - 08/28/2008 Provide r: Valdez Stephens MD Diagnosis: 1 po monthly Effexor XR 150 MG OR CP24 03/02/2008 - 11/27/2008 Provider: Valdez Stephens MD Diagnosis: Glucotrol XL 5 MG OR TB24 03/02/2008 - 08/28/2008 Provider: Valdez Stephens MD Diagnosis: 2 po daily K-Dur 20 MEQ OR TBCR 03/02/2008 - 11/27/2008 Provider: Valdez Stephens MD Diagnosis: Pulmicort 0.25 MG/2ML IN SUSP 03/02/2008 - 08/28/2008 Provid er: Valdez Stephens MD Diagnosis: 1 via [facility] daily prn Blood Glucose Test STRP 03/02/2008 - 08/28/2008 Provider: Valdez Stephens MD Diagnosis: use as needed, up to 2 daily LORazepam 1 MG TABS 03/02/2008 - 06/01/2008 Provider: Valdez Stephens MD Diagnosis: 1 BID PRN ANXIETY OR SLEEPCODE A Albuterol Sulfate (2.5 MG/3ML) 0.083% IN NEBU 03/02/2008 - 0 11/27/2008 Provider: Valdez Stephens MD Diagnosis: 1 via juarez qid prn Cipro 250 MG OR TABS 12/15/2007 - 03/02/2008 Provider: Harish MERCEDES Diagnosis: take one tablet two times a day. for 3 days. LORazepam 1 MG TABS 12/13/2007 - 03/02/2008 Provider: Valdez Stephens MD Diagnosis: 1 BID PRN ANXIETY OR SLEEPCODE A K-Dur 20 MEQ OR TBCR 11/12/2007 - 03/02/2008 Provider: Stacia Stephens MD Diagnosis: Effexor XR 150 MG OR CP24 11/12/2007 - 03/02/2008 Provider: Valdez Stephens MD Diagnosis: Glucotrol XL 5 MG OR TB24 11/12/2007 - 03/02/2008 Provider: Valdez Stephens MD Diagnosis: 2 po daily Vitamin D 29402 UNIT OR CAPS 10/28/2007 - 03/02/2008 Provide r: Valdez Stephens MD Diagnosis: 1 po weekly times 8 weeks, then 1 po monthly Glucotrol XL 5 MG OR TB24 09/06/2007 - 11/12/2007 Provider: Valdez Stephens MD Diagnosis: 2 po daily Effexor XR 150 MG OR CP24 09/06/2007 - 11/12/2007 Provider: Valdez Stephens MD Diagnosis: Pulmicort 0.25 MG/2ML IN SUSP 09/06/2007 - 03/02/2008 Provid er: Valdez Stephens MD Diagnosis: 1 via neb daily prn K-Dur 20 MEQ OR TBCR 09/06/2007 - 11/12/2007 Provider: Valdez Stephens MD Diagnosis: Blood Glucose Test STRP 09/06/2007 - 03/02/2008 Provider: Valdez Stephens MD Diagnosis: use as needed, up to 2 daily metFORMIN HCl 500 MG TABS 09/06/2007 - 03/02/2008 Provider: Valdez Stephens MD Diagnosis: AM and before dinner for glucose control Albuterol Sulfate (2.5 MG/3ML) 0.083% IN NEBU 09/06/2007 - 1 05/03/2007 Provider: Valdez Stephens MD Diagnosis: 1 via juarez qid prn Flexeril 10 MG OR TABS 09/06/2007 - 03/02/2008 Provider: Valdez Stephens MD Diagnosis: 1 po tid prn traZODone HCl 100 MG OR TABS 09/06/2007 - 03/02/2008 Provide r: Valdez Stephens MD Diagnosis: 2 po at bedtime and 2 again during the day prn Diltiazem HCl 120 MG OR CP24 09/06/2007 - 03/02/2008 Provide r: Valdez Stephens MD Diagnosis: hydroCHLOROthiazide 25 MG TABS 09/06/2007 - 03/02/2008 Provi kassi: Valdez Stephens MD Diagnosis: Reglan 10 MG OR TABS 09/06/2007 - 03/02/2008 Provider: Valdez Stephens MD Diagnosis: Synthroid 25 MCG OR TABS 09/06/2007 - 03/02/2008 Provider: Valdez Stephens MD Diagnosis: Lipitor 10 MG OR TABS 09/06/2007 - 03/02/2008 Provider: Valdez Stephens MD Diagnosis: LORazepam 1 MG TABS 09/06/2007 - 12/13/2007 Provider: Valdez Stephens MD Diagnosis: 1 BID PRN ANXIETY OR SLEEPCODE A Misc. Devices MISC 09/06/2007 - 03/02/2008 Provider: Valdez Stephens MD Diagnosis: LAB: FASTING- VIT D,lipids, metab prof- 401.9 272 v70 Lisinopril 20 MG OR TABS 09/06/2007 - 03/02/2008 Provider: Valdez Stephens MD Diagnosis: half tab po daily Cipro 500 MG OR TABS 08/19/2007 - 03/02/2008 Provider: Ya Patel NP Diagnosis: Protonix 40 MG OR TBEC 08/19/2007 - 03/02/2008 Provider: Valdez Stephens MD Diagnosis: Synthroid 25 MCG OR TABS 06/21/2007 - 09/06/2007 Provider: Valdez Stephens MD Diagnosis: Synthroid 25 MCG OR TABS 06/17/2007 - 06/21/2007 Provider: Valdez Stephens MD Diagnosis: Ciprofloxacin HCl 500 MG OR TABS 06/12/2007 - 03/02/2008 Pro vider: Valdez Stephens MD Diagnosis: Pyridium 200 MG OR TABS 06/12/2007 - 03/02/2008 Provider: Valdez Stephens MD Diagnosis: Reglan 10 MG OR TABS 06/12/2007 - 09/06/2007 Provider: Diagnosis: LORazepam 1 MG TABS 06/12/2007 - 09/06/2007 Provider: Valdez Stephens MD Diagnosis: 1 BID PRN ANXIETY OR SLEEPCODE A LORazepam 1 MG TABS 05/31/2007 - 06/12/2007 Provider: Vadlez Stephens MD Diagnosis: 1 BID PRN ANXIETY OR SLEEPCODE A Cortisporin [id number] OT SOLN 05/31/2007 - 03/02/2008 Prov ider: Valdez Stephens MD Diagnosis: 3 gtts in each ear tid times 7 days LORazepam 0.5 MG TABS 05/15/2007 - 05/31/2007 Provider: Valdez Stephens MD Diagnosis: MDD #3 hydroCHLOROthiazide 25 MG TABS 04/22/2007 - 09/06/2007 Provi kassi: Valdez Stephens MD Diagnosis: LORazepam 0.5 MG TABS 04/15/2007 - 05/15/2007 Provider: Valdez Stephens MD Diagnosis: MDD #3 LORazepam 0.5 MG TABS 03/15/2007 - 04/15/2007 Provider: Valdez Stephens MD Diagnosis: MDD #3 traZODone HCl 100 MG OR TABS 03/04/2007 - 09/06/2007 Provide r: Valdez Stephens MD Diagnosis: 2 po at bedtime and 2 again during the day prn metFORMIN HCl 500 MG TABS 03/01/2007 - 09/06/2007 Provider: Valdez Stephens MD Diagnosis: AM and before dinner for glucose control Pulmicort 0.25 MG/2ML IN SUSP 03/01/2007 - 09/06/2007 Provid er: Valdez Stephens MD Diagnosis: 1 via neb daily prn Flexeril 10 MG OR TABS 03/01/2007 - 09/06/2007 Provider: Valdez Stephens MD Diagnosis: 1 po tid prn K-Dur 20 MEQ OR TBCR 03/01/2007 - 09/06/2007 Provider: Valdez Stephens MD Diagnosis: Combivent 18-103 MCG/ACT IN AERO 03/01/2007 - 03/02/2008 Pro vider: Valdez Stephens MD Diagnosis: 2 puffs qid prn Lisinopril 20 MG OR TABS 03/01/2007 - 09/06/2007 Provider: Valdez Stephens MD Diagnosis: half tab po daily hydroCHLOROthiazide 25 MG TABS 03/01/2007 - 04/22/2007 Provi kassi: Valdez Stephens MD Diagnosis: Lisinopril 20 MG OR TABS 03/01/2007 - 03/01/2007 Provider: Valdez Stephens MD Diagnosis: half tab po daily Effexor XR 150 MG OR CP24 03/01/2007 - 09/06/2007 Provider: Valdez Stephens MD Diagnosis: Synthroid 25 MCG OR TABS 03/01/2007 - 06/17/2007 Provider: Valdez Stephens MD Diagnosis: Glucotrol XL 5 MG OR TB24 03/01/2007 - 09/06/2007 Provider: Valdez Stephens MD Diagnosis: 2 po daily Lipitor 10 MG OR TABS 03/01/2007 - 09/06/2007 Provider: Valdez Stephens MD Diagnosis: Albuterol Sulfate (2.5 MG/3ML) 0.083% IN NEBU 03/01/2007 - 0 09/06/2007 Provider: Valdez Stephens MD Diagnosis: 1 via juarez qid prn Blood Glucose Test STRP 03/01/2007 - 09/06/2007 Provider: Valdez Stephens MD Diagnosis: use as needed, up to 2 daily Misc. Devices KIT 03/01/2007 - 03/02/2008 Provider: Valdez Stephens MD Diagnosis: Diabetic moulded sole shoes please. traZODone HCl 100 MG OR TABS 03/01/2007 - 03/04/2007 Provide r: Valdez Stephens MD Diagnosis: 2 po at bedtime and 2 again during the day prn LORazepam 0.5 MG TABS 02/18/2007 - 03/15/2007 Provider: Valdez Stephens MD Diagnosis: MDD #3 LORazepam 0.5 MG TABS 02/12/2007 - 02/18/2007 Provider: Valdez Stephens MD Diagnosis: Lipitor 10 MG OR TABS 02/06/2007 - 03/01/2007 Provider: Valdez Stephens MD Diagnosis: predniSONE 10 MG OR TABS 01/18/2007 - 03/02/2008 Provider: Valdez Stephens MD Diagnosis: Clotrimazole 1% EX CREA 01/18/2007 - 03/02/2008 Provider: Valdez Stephens MD Diagnosis: bid for 7days and prn LORazepam 0.5 MG TABS 01/16/2007 - 01/16/2007 Provider: Valdez Stephens MD Diagnosis: LORazepam 0.5 MG TABS 01/11/2007 - 01/16/2007 Provider: Cullen Blackewll DO Diagnosis: Glucotrol XL 5 MG OR TB24 12/07/2006 - 03/01/2007 Provider: Valdez Stephens MD Diagnosis: 2 po daily CVS Nicotine 21 MG/24HR TD PT24 11/19/2006 - 03/02/2008 Prov ider: Diagnosis: Diltiazem HCl 120 MG OR CP24 11/19/2006 - 09/06/2007 Provide r: Valdez Stephens MD Diagnosis: Reglan 10 MG OR TABS 11/19/2006 - 06/12/2007 Provider: Diagnosis: Lipitor 10 MG OR TABS 11/19/2006 - 02/06/2007 Provider: Diagnosis: Effexor XR 150 MG OR CP24 11/19/2006 - 03/01/2007 Provider: Diagnosis: Glucotrol XL 5 MG OR TB24 11/19/2006 - 12/07/2006 Provider: Diagnosis: 2 po daily Aspirin EC 325 MG OR TBEC 11/19/2006 - 12/31/2009 Provider: Diagnosis: Protonix 40 MG OR TBEC 11/19/2006 - 08/19/2007 Provider: Diagnosis: Pulmicort 0.25 MG/2ML IN SUSP 11/19/2006 - 03/01/2007 Provid er: Diagnosis: 1 via neb daily prn traZODone HCl 100 MG OR TABS 11/19/2006 - 11/19/2006 Provide r: Diagnosis: 2 po at bedtime Albuterol Sulfate (2.5 MG/3ML) 0.083% IN NEBU 11/19/2006 - 1 05/01/2006 Provider: Diagnosis: 1 via juarez qid prn Flexeril 10 MG OR TABS 11/19/2006 - 03/01/2007 Provider: Diagnosis: 1 po tid prn K-Dur 20 MEQ OR TBCR 11/19/2006 - 03/01/2007 Provider: Diagnosis: Combivent 18-103 MCG/ACT IN AERO 11/19/2006 - 03/01/2007 Pro vider: Diagnosis: 2 puffs qid prn Synthroid 25 MCG OR TABS 11/19/2006 - 03/01/2007 Provider: Diagnosis: hydroCHLOROthiazide 25 MG TABS 11/19/2006 - 03/01/2007 Provi kassi: Diagnosis: Lisinopril 20 MG OR TABS 11/19/2006 - 03/01/2007 Provider: Diagnosis: half tab po daily LORazepam 0.5 MG TABS 11/08/2006 - 01/11/2007 Provider: Claire Carbajal NP Diagnosis: Medications Administered Includes: Administered Medications in patient's chart Medications Administered Diagnosis Date Provi kassi Albuterol Sulfate (2.5 MG/3ML) 12/03/2012 Rachna Balderas TOOLROOM HELPER 0.083% IN [facility] Levalbuterol HCl 1.25 MG/3ML IN 09/10/2018 Harish Carbajal NP [facility] Tigan 100 MG/ML IM SOLN 05/31/2016 Valdez Stephens MD right gluteus verona Ondansetron 4 MG OR TBDP 05/31/2016 Valdez steele MD Vital Signs Includes: Vital Signs from 02/12/2019 through 02/13/2020 Vital Name 02/10/2020 02:22P 10/10/2019 01:26P 07/24/2019 09:39A 07/21/2019 02:29P 06/09/2019 12:25P Blood Pressure Sitting L 140/70 114/60 110/60 102/72 116/72 BP Cuff Size Regular Large Regular Regular Regular Pulse Rate-Sitting (bpm) 74 68 56 72 66 Pulse Rhythm Regular Regular Regular Respiration Rate (breaths/min) 22 18 18 18 20 Weight (lb) 127 126 129 129 128 Pain Level 7 7 7 7 6 Oxygen Saturation (%) 95 96 99 98 Flow Rate (l/min) (None (Room Air)) (None (Room Air)) (None (Sara m Air)) (None (Room Air)) FiO2 (%) 21 21 21 21 Pulse Rhythm Irregular Temp-Tympanic (F) 96.5 98 97.9 97.9 Height (in) 64 64 64 Body Mass Index (kg/m2) 21.6 22.1 2 2.0 Body Surface Area (m2) 1.61 1.62 1. 62 Note: temp taken by E. [place], SYRUPER Vital Name 03/28/2019 11:20A Blood Pressure Sitting L 112/66 BP Cuff Size Regular Pulse Rate-Sitting (bpm) 65 Respiration Rate (breaths/min) 20 Weight (lb) 133 Pain Level 7 Oxygen Saturation (%) 97 Flow Rate (l/min) (None (Room Air)) FiO2 (%) 21 Temp-Tympanic (F) 98.2 Height (in) 64 Body Mass Index (kg/m2) 22.8 Body Surface Area (m2) 1.64 Results Includes: Results from 02/12/2019 through 02/13/2020 Hgb A1c In-House Labs Ordered by Harish Carbajal NP on 02/10/2020 Specimen Source: Whole blood Collected: 02/10/2020 R eported: 02/10/2020 Hgb A1c 7.5 A (Abnormal) Reviewed on 02/10/2020; All test result s are final unless otherwise noted. Hgb A1c In-House Labs Ordered by Harish Carbajal NP on 10/10/2019 Specimen Source: Whole blood Collected: 10/10/2019 R eported: 10/10/2019 Hgb A1c 7.6 A (Abnormal) Reviewed on 10/10/2019; All test result s are final unless otherwise noted. GENITAL [facility] Ordered by Harish Mcmahan NP on 07/21/[address] [place] [address], [id number] Collected: 07/21/2019 Reported: 07/24/2019 tel:[phone] See Note Avila None Note: Run: 07/24/19 0745 INTERFACED REPORT Name: Flori Marie Age/Sex: 74/F Location: [facility] Acct: [id number] Unit: [id number] Status: REG REF Room/Bed: Re07/21/19 Disch: Att Dr: Harish Mcmahan NP Specimen #: [id number] Ordered : 07/22/19 Collected : 07/21/19 By: OFFICE Received: 07/22/19 By: DENA Source: VAGI Specimen Description: Comments: VAGINAL VAGINA Procedure Result GRAM STAIN Final GRAM POSITIVE RODS MANY GRAM NEGATIVE RODS RARE GENITAL CULTURE Final USUAL ADAM AFTER 24 HOURS USUAL ADAM AFTER 48 HOURS GENITAL CULTURE Preliminary (Corrected) USUAL ADAM AFTER 24 HOURS END OF REPORT Reviewed on 07/25/2019; All test result s are final unless otherwise noted. Reported Physicians [facility] Ordered by Harish Mcmahan NP on 07/21/[address] [place] [address], [id number] Collected: 07/21/2019 Reported: 07/24/2019 tel:[phone] Reported Physicians See Note None Note: Reported Physicians:Ordering: Harish Pollackending: Harish Mcmahan Reviewed on 07/25/2019; All test result s are final unless otherwise noted. VAGINOSIS (BV) TEST [facility] Ordered by Harish Mcmahan NP on 07/21/[address] [place] [address], [id number] Collected: 07/21/2019 Reported: 07/22/2019 tel:[phone] [place] BY DNA PROBE POSITIVE (NEGATIVE) A (Abnormal) Note: Responsible Observer: [place] BY D NA [place] BY DNA PROBE 500.3050 (A) GARDNERELLA BY DNA PROBE NEGATIVE (NEGATIVE) None Note: Responsible Observer: GARDNERELLA GARDNERELLA BY DNA PROBE 500.3075 (A) TRICHOMONAS BY DNA PROBE NEGATIVE (NEGATIVE) None Note: TESTING PERFORMED BY NUCLEIC ACID HYBRIDIZATIONResponsible Observer: TRICHOMONAS TRICHOMONAS BY DNA PROBE 500.3100 (A) Reviewed on 07/22/2019; All test result s are final unless otherwise noted. Reported Physicians [facility] Ordered by Harish Mcmahan NP on 07/21/[address] [place] [address], [phone] Collected: 07/21/2019 Reported: 07/22/2019 tel:[phone] Reported Physicians See Note None Note: Reported Physicians:Ordering: Harish Pollackending: Harish Mcmahan Reviewed on 07/22/2019; All test result s are final unless otherwise noted. URINE CULTURE [facility] Ordered by Harish Mcmahan NP on 07/21/[address] [place] [address], [id number] Collected: 07/21/2019 Reported: 07/24/2019 tel:[phone] See Note Avila None Note: Run: 07/24/19 0738 INTERFACED REPORT Name: Flori Marie Age/Sex: 74/F Location: [facility] Acct: [id number] Unit: [id number] Status: REG REF Room/Bed: Re07/21/19 Disch: Att Dr: Harish Mcmahan NP Specimen #: [id number] Ordered : 07/22/19 Collected : 07/21/19 By: OFFICE Received: 07/22/19 By: DENA Source: URINE CC Specimen Description: Comments: Has been collected UCC Procedure Result COLONY COUNT Final COLONY COUNT 10,000 CFU/ML URINE CULTURE Final NO SIGNIFICANT GROWTH 24 HOURS NO SIGNIFICANT GROWTH 48 HOURS URINE CULTURE Preliminary (Corrected) NO SIGNIFICANT GROWTH 24 HOURS END OF REPORT Reviewed by Harish Chavez on 07/24/2019; All test results are final unless otherwise noted. Reported Physicians [facility] Ordered by Harish Mcmahan NP on 07/21/[address] [place] [address], [phone] Collected: 07/21/2019 Reported: 07/24/2019 tel:[phone] Reported Physicians See Note None Note: Reported Physicians:Ordering: Harish Pollackending: Harish Mcmahan Reviewed by Harish Chavez on 07/24/2019; All test results are final unless otherwise noted. Urinalysis In-House Labs Ordered by Harish Mcmahan NP on 07/21/2019 Specimen Source: Urine Collected: 07/21/2019 Reporte d: 07/21/2019 Bili neg N (Normal) Blood trace A (Abnormal) Color norm N (Normal) Glucose neg N (Normal) Ketone neg N (Normal) Leukocytes neg N (Normal) Nitrite neg N (Normal) pH neg N (Normal) Protein neg N (Normal) Specific [place] 1.005 A (Abnormal) Urobili neg N (Normal) Reviewed on 07/21/2019; All test result s are final unless otherwise noted. Hgb A1c In-House Labs Ordered by Cullen Blackwell DO on 06/09/2019 Specimen Source: Whole blood Collected: 06/09/2019 R eported: 06/09/2019 Hgb A1c 7.9 A (Abnormal) Reviewed on 06/09/2019; All test result s are final unless otherwise noted. VAGINOSIS (BV) TEST [facility] Ordered by Harish Carbajal NP on 03/28/[address] [place] [address], [id number] Collected: 03/28/2019 Reported: 03/29/2019 tel:[phone] [place] BY DNA PROBE POSITIVE (NEGATIVE) A (Abnormal) Note: Responsible Observer: [place] BY D NA [place] BY DNA PROBE 500.3050 (A) GARDNERELLA BY DNA PROBE POSITIVE (NEGATIVE) A (Abnormal) Note: Responsible Observer: GARDNERELLA GARDNERELLA BY DNA PROBE 500.3075 (A) TRICHOMONAS BY DNA PROBE NEGATIVE (NEGATIVE) None Note: TESTING PERFORMED BY NUCLEIC ACID HYBRIDIZATIONResponsible Observer: TRICHOMONAS TRICHOMONAS BY DNA PROBE 500.3100 (A) Reviewed by Harish Carbajal NP on 03/31/20 19; All test results are final unless otherwise noted. Reported Physicians [facility] Ordered by Harish Carbajal NP on 03/28/[address] [place], [address] Collected: 03/28/2019 Reported: 03/29/2019 tel:[phone] Reported Physicians See Note None Note: Reported Physicians:Ordering: Harish RichardsonAttending: Harish Carbajal Reviewed by Harish Carbajal NP on 03/31/20 19; All test results are final unless otherwise noted. History of Present Illness History of Present Illness not supported for this document typeNo History of Present Illness Recorded Social History Description Last Updated (2) I do activities to improve flexibili ty, such as stretching or yoga, once a week or more 02/10/2020 control method not specified 02/10/2020 Exercise frequency 02/10/2020 No caffeine use 02/10/2020 No domestic violence 02/10/2020 Normal activities of daily living 02/10/2020 Sexually active 02/10/2020 Alcohol use Denies alcohol consumption 02/10/2020 Not using drugs 02/10/2020 Secondhand cigarette smoke exposure 02/10/2020 Smoking status 02/10/2020 : Current everyday smoker 1 ppd 02/10/2020 Educational level completed 9th grade 02/10/2020 Physical disability left arm, neck, shoulders, back 1 04/11/2019 Procedures and Surgical/Medical History Includes: Procedures from 02/12/2019 through 02/13/2020 Procedures CPT-4 Diagnosis Performing Provider Service Location Service Date [facility] Visit, established patient (Signi/Sep Eval. & Man.) [id number] Unspecified atrial fibrillation, Cardiomyopathy, unspecified, Chronic ischemic heart disease, unspecified, Type 2 diabetes mellitus with other specified complication Harish Elder [facility] [facility] 02[facility]10[facility]2020 Hemoglobin; Glycated A1c 12555 Type 2 diabetes mellitus with other specified complication Harish Elder Raven [facility] 02/10/2020 Hemoglobin; Glycated A1c 39638 Type 2 diabetes mellitu s without complications Harish Elder Raven [facility] 10/10/2019 Ekg With Interpretation and Report 47327 Chest pain, u nspecified Harish Elder Raven [facility] 10/10/2019 [facility] Visit, established patient [id number] Essentia l (primary) hypertension, Type 2 diabetes mellitus without complications, Chest pain, unspecified, Epigastric pain Harish Elder Raven [facility] 10/10/2019 [facility] Visit, established patient G0467 Emphysem a, unspecified, Type 2 diabetes mellitus without complications, Vitamin D deficiency, unspecified, Low back pain Harish Elder Raven [facility] 07/24/2019 Urinalysis, by Dip Stick or Tablet Reagent [place] [id number] Urinary tract infection, site not specified Harish Love Isidro Martir [facility] 07/21/2019 [facility] Visit, established patient G0467 Urinary tract infection, site not specified, Acute vaginitis LuanneKate Mcmahan [facility] 07/21/2019 [facility] Visit, established patient ([facility] no telemedicine service rendered via real-time interactive audio and video telecommunication system) G0467 Peripheral vascular disease, unspecified, Chronic ischemic heart disease, unspecified, Cardiomyopathy, unspecified Cullen Blackwell DO [facility] 0 [facility]/HC code for distant site telehealt h services (Synchronous telemedicine service rendered via real-time interactive audio and video telecommunication system) G2025 Peripheral vascular disease, unspecified, Chronic ischemic heart disease, unspecified, Cardiomyopathy, unspecified Cullen Blackwell [facility] 06/23/2019 [facility] -Subsequent Annual Wellness Visit G0439 En cntr for general adult medical exam w/o abnormal findings, Type 2 diabetes mellitus with unspecified complications, Chronic ischemic heart disease, unspecified, Essential (primary[facility] Visit, IPPE or AWV G0468 Encntr for gener al adult medical exam w/o abnormal findings, Type 2 diabetes mellitus with unspecified complications, Chronic ischemic heart disease, unspecified, Essential (primary) [facility] Hemoglobin; Glycated A1c 99149 Type 2 diabetes mellitus with unspecified complications [facility] Visit, established patient G0467 Heart fa ilure, unspecified, Chronic obstructive pulmonary disease, unspecified, Type 2 diabetes mellitus with other specified complication, Acute vaginitis Harish Carbajal [facility] 03/28/2019 Surgical History Last Updated History of cholecystectomy 197602/10/2020 History of hysterectomy 197602/10/2020 History of tonsillectomy 8 years old 02/10/2020 Medical History Last Updated section 197602/10/2020 Colon polyps 02/10/2020 Diverticulosis of intestine 02/10/2020 History of type 2 diabetes mellitus 02/10/2020 Osteopenia 08/23/2018 02/10/2020 Colonoscopy (fiberoptic) was performed 06/19/2012 repe at in 3 years 08/06/2015 Patient screening 08/15/2013 Offered for Hepatitis C- would like to get today 08/06/2015 Family History Includes: Family History in patient's chart Description Last Updated Family history of cancer Father- prosta te cancer ~Mother- throat cancer ~Brother- Non hodgkins lymphoma ~Brother- espophageal and neck cancer 02/10/2020 Family history of depression brother, son 02/10/2020 Family history of diabetes mellitus Sis ter ~Mother ~Father ~Maternal aunts and uncles 02/10/2020 Family history of early deaths Sister-M I at age 56 ~Brother-Cancer at age 63 ~Brother- Cancer- 42 ~Brother- not medically related 02/10/2020 Family history of heart disease Father ~Mother ~2 Sis ters ~Maternal Uncles 02/10/2020 Family history of hypertension Mother ~Sister 020 Family history of not using drugs 02/10/2020 Review of Systems Review of Systems not supported for this document typeNo Review of Systems Recorded Mental Status Mental Status not supported for this document typeNo Mental Status Recorded Functional Status Functional Status not supported for this document typeNo Functional Status Recorded Physical Exam Physical Exam not supported for this document typeNo Physical Exam Recorded Immunizations Includes: Immunizations in patient's chart Vaccine Dose # Date Site Reaction(s) Status Source Boostrix 1 10/26/2010 Left Arm Complete (Administered) [facility] H1N1 -Inactive 1 02/12/2009 Right Arm Complete (Administer ed) [facility] Influenza 1 01/18/2007 Complete (Reported) Patient Influenza 2 12/13/2007 Right Arm Complete (Administered) [facility] Influenza 3 12/29/2009 Right Arm Complete (Administered) [facility] Influenza 4 12/31/2010 Complete (Reported) Patient Influenza 5 01/01/2012 Complete (Reported) Patient Influenza 6 12/24/2012 Upper Left Arm Complete (Administer ed) [facility] Influenza 7 12/19/2013 Complete (Reported) Patient Influenza 8 01/15/2015 Right Arm Complete (Administered) [facility] Influenza 9 01/21/2016 Complete (Reported) Patient Influenza 10 12/28/2016 Complete (Reported) Patient Influenza, high-dose (over 65) 1 01/11/2018 Compl ete (Reported) Patient Influenza, high-dose (over 65) 2 01/22/2020 Compl ete (Reported) Patient Influenza, seasonal, injectable 1 01/21/2019 Compl ete (Reported) Patient PCV (Pneumovax 23) 1 02/21/2002 Complete (Reported ) Patient PCV (Pneumovax 23) 2 12/24/2012 Upper Right Arm Comp lete (Administered) [facility] Prevnar 13 1 01/21/2014 Complete (Reported) Patien t Td 1 03/23/2006 Complete (Reported) Patient Zostavax (Shingles) 1 09/01/2014 Complete (Reporte d) Patient Allergies Includes: Active, inactive, and resolved Allergies Substance Type Reaction Effective Status Relafen 500 MG Oral Tablet Allergy rectal bleeding 11/19/2006 Active Propoxyphene HCl 65 MG Oral Capsule, conventional Allergy Skin Rashes, Hives 09/06/2007 Active Neurontin 100 MG Oral Capsule, conventional Allergy Skin Rashes, Hives 11/19/2006 Active Lisinopril Intolerance lightheaded and kina t on 10 mg not better on 5mg but ok once off 10/26/2010 Active Note: lightheaded and faint on 10 mg not better on 5mg but ok once off Hydrocortisone Powder Allergy Skin Rashes, Hives 07/11/2012 Active Note: Reaction to anusol wit h rash Hydrocodone Bitart (Antituss) Crystals Allergy itching Active Fentanyl Powder Allergy Nausea, Vomiting, Diarrhea 02/11/2014 Active Doxycycline 40 MG Oral Capsule, delayed-release Allergy Nausea, Vomiting, Diarrhea 11/19/2006 Active Darvocet-N 50 50-325 MG Oral Tablet Allergy Skin Rashes, Hives 11/19/2006 Active Caffeine Powder Allergy insomnia 09/06/2007 Active amLODIPine Besy-Benazepril HCl 10-20 MG Oral Capsule, conven tional Intolerance confusion, 08/07/2014 Active Amitriptyline HCl Powder Allergy huge appetite 09/06/2007 Ac tive Note: patient also recalls h moose Encounters Includes: Encounters from 02/12/2019 through 02/13/2020 Encounter Provider Location Date Diagnosis Chart Update Nevin Maldonado RN 02/13/2020 Chronic Disease Follow-up Harish Carbajal NP [facility] 02/10/20 20 Atrial Fibrillation and Flutter, Cardiomyopathy, Coronary Artery Disease, Diabetes Mellitus Type 2 with Complication, Emphysema, Generalized Anxiety Disorder, Hypertension (systemic), Hyperlipidemia, Nicotine Dependence, Restless Legs Syndrome Correspondence Harish Carbajal NP 10/20/2019 Referral Order Claire Carbajal NP 10/13/2019 Chronic Disease Follow-up Harish Carbajal NP [facility] 10/10/19 Anemia, Atrial Fibrillation and Flutter, Coronary Artery Disease, Diabetes Mellitus Type 2 with Complication, Hypertension (systemic), Emphysema, Generalized Anxiety Disorder, Hyperlipidemia, Abdominal Pain--epigastric, Chest Pain, Sinusitis, Dermatophytosis Medication Order Irena Bush NP 09/29/2019 Acute L2 Harish Carbajal NP [facility] 07/24/2019 Complex Regional Pain Syndrome Type I Upper Limb, Low Back Pain Acute L3 LuanneKate Mcmahan NP [facility] 07/21/19 20 Vaginitis Acute, Microscopic Hematuria Telephone Encounter Cullen Blackwell DO 06/23/2019 Coronary Artery Disease, Cardiomyopathy, Peripheral Vascular Disease Correspondence Cullen Blackwell DO 06/11/2019 Referral Order Cullen Blackwell DO 06/11/2019 Chart Update Claire Wheeler RN 06/09/2019 [facility] Cullen Blackwell DO [facility] 06/09/2019 Ro utine History and Physical Chart Prep Cullen Blackwell DO 05/23/2019 Medication Order Harish Carbajal NP 03/31/2019 Hospital Follow-up Harish Carbajal NP [facility] 03/28/2019 Va ginitis, Diabetes Mellitus Type 2 with Complication, Congestive Heart Failure, Chronic Obstructive Pulmonary Disease [Patient Encounter] Cullen Blackwell DO 02/13/2019 Insurance Includes: Active Insurance Policies Plan Name Member ID Group # Subscriber Relationship Effective Da desirae 1 - [employer] [id number] Flori Marie Self 0 12/01/1997 - Unknown 2 - [employer] [phone] [id number] [place] 10/31/2009 - Unknown Advance Directives Includes: Current Advance Directives Directive Pat Aware Third Republican Effective Date Reviewed Status RHIO Yes 05/17/2012 Current and Ve rified Note: 05/17/12 packet given Pt Bill of Rights, Priv Prac, Ad Dir Yes 07/21/2019 Current and Verified Note: Pt declined AD packet Ebola Screening Performed Yes 07/21/2019 Current and Verified Note: Within the last month, have you traveled outside of the [place]? - NO Health Concerns Includes: Active Health Concerns Abdominal Pain Onset 05/31/2016 Anemia Onset 01/04/2015 Atrial Fibrillation and Flutter Onset 01/21/2014 Cellulitis Onset 04/21/2015 Complex Regional Pain Syndrome Type I Up per Limb Onset 11/19/2006 Constipation Onset 02/08/2011 Diabetes Mellitus Type 2 with Complicati on Onset 11/19/2006 Emphysema Onset 11/19/2006 Generalized Anxiety Disorder Onset 09/06/2007 Hyperlipidemia Onset 11/19/2006 Hypertension (systemic) Onset 11/19/2006 Low Back Pain Onset 11/12/2017 Nicotine Dependence Onset 09/06/2007 Persistent Insomnia Onset 05/21/2009 Thoracic Radiculopathy Onset 01/14/2014 Vitamin D Deficiency Onset 12/13/2007 Chronic pain Added 07/24/2019 Goals Includes: Active Goals Your A1C goal is less than 8.Your last A 1c was 8.7 Added 11/19/2006 by Provider Health Concern: Diabetes Mellitus Type 2 with Complication Improve breathing. Added 11/19/2006 by Provider Health Concern: Emphysema Your blood pressure goal is 150/80 (JNC 8 guidelines) Added 11/19/2006 by Provider Health Concern: Hypertension (systemic) Control chronic pain Added 11/19/2006 by Provider Health Concerns: Chronic pain, Low Back Pain Minimize both cardiovascular event risk and risk of side effects of medicines and interventions. Added 11/19/2006 by Provider Health Concern: Hyperlipidemia GET OFF THE CIGARETTES!!!! Added 09/06/2007 by Provider Health Concern: Nicotine Dependence Decrease anxiety. Added 09/06/2007 by Provider Health Concern: Generalized Anxiety Disorder Keep Vitamin D level in normal range.Leopoldo id fractures. Added 12/13/2007 by Provider Health Concern: Vitamin D Deficiency Improve sleep. Added 05/21/2009 by Provider Health Concern: Persistent Insomnia Maintain normal bowel movements. Added 02/08/2011 by Provider Health Concern: Constipation Improve back pain. Added 01/14/2014 by Provider Health Concern: Thoracic Radiculopathy Avoid episodes of fast heart beat. Added 01/21/2014 by Provider Health Concern: Atrial Fibrillation and Flutter Goal for Cellulitis Added 04/21/2015 by Provider Health Concern: Cellulitis Goal for Anemia Added 01/04/2015 by Provider Health Concern: Anemia Goal for Abdominal Pain Added 05/31/2016 by Provider Health Concern: Abdominal Pain Interventions Includes: Interventions for active Goals 07/13/17 a1c was 7.9 today so good respon se to increase in metformin. As summer comes and she is more active, be sure to monitor for low sugar readings. If sugars are low, stop taking the glipizide to prevent going too low. Added 11/19/2006 Goal: Your A1C goal is less than 8.Your last A1c was 8.7 07/13/18 Having shortness of breath more frequently lately. Added budesonide 0.5mg nebulizer to use twice a day to help control inflammation. Wrote another prescription for Chantix. Quitting smoking is the best thing she can do to help her shortness of breath. Currently smoking 3/4 packs per day. Added 11/19/2006 Goal: Improve breathing. Continue bisoprolol and losartan. Added 11/19/2006 Goal: Your blood pressure goal is 150/80 (JNC 8 guidelines) Discuss goals for pain management and ho w effective current treatments are. Added 11/19/2006 Goal: Control chronic pain Discussed risks vs. benefits of opioid t herapy, if the risks become too great we will taper and discontinue therapy. Added 07/24/2019 Goal: Control chronic pain Evaluation of risk factors completed via SOAPP documentation. Added 07/24/2019 Goal: Control chronic pain Goals for functional improvement discuss ed. These include how your pain affects your interactions with family members and friends. This also includes how your pain affects your ability to perform daily tasks (walking, dressing, bathing, etc.). Added 07/24/2019 Goal: Control chronic pain Risks of using opioids such as constipat ion, fatigue, decreased mental alertness, increased fall risk discussed. Added 07/24/2019 Goal: Control chronic pain Your 10 year risk of cardiovascular dise ase is high enough that high intensity statin treatment (Lipitor/atorvastatin 40-80 mg or Crestor/rosuvastatin 20-40 mg) is recommended. Continue your Atorvastatin 40mg daily. Added 11/19/2006 Goal: Minimize both cardiovascular event risk and risk of side effects of medicines and interventions. 07/13/18 Wrote another prescription for Reed santanax. Quitting smoking is the best thing she can do to help her shortness of breath. Currently smoking 3/4 packs per day. Added 09/06/2007 Goal: GET OFF THE CIGARETTES!!!! Continue Venlafaxine. Added 09/06/2007 Goal: Decrease anxiety. Continue daily vitamin D. Added 12/13/2007 Goal: Keep Vitamin D level in normal range.Avoid fractures. Improved after quit smoking.Continue Amb ien. Added 05/21/2009 Goal: Improve sleep. Continue Miralax/polyethylene glycol and bene fiber supplementation. Added 02/08/2011 Goal: Maintain normal bowel movements. Continue the morphine ER 15 mg from one to 3 a day, using as little as possible so it keeps its effectiveness for you. Added 01/14/2014 Goal: Improve back pain. Continue Bispropol and Xarelto as direct ed by your enrollment management coordinator. Stop the diltiazem if you haven't already.Follow up with the enrollment management coordinator. Added 01/21/2014 Goal: Avoid episodes of fast heart beat. right second toe swollen and red around nail past week- soaks at home. Will add bactrim ds bid x 7 days;; call us or dr post if not getting better Added 04/21/2015 Goal: Goal for Cellulitis 11/12/17 iron came back to normal after 2015 and fine since - Apr. Stop iron supplement and will check again in 6 - 12 months Added 01/04/2015 Goal: Goal for Anemia ongoing abd pain gastroparesis from the diabetes at least in part;; feels crampy so will try bentyl to see if helps. Reglan (metoclopramide) is to help keep the bowels moving forward in presence of this gastroparesis problem. Added 05/31/2016 Goal: Goal for Abdominal Pain Evaluations & Outcomes Includes: Evaluations & Outcomes for active Goals Goal converted from Patient Problem data . Goal is currently In Progress. Added 11/19/2006 - In Progress Goal: Your A1C goal is less than 8.Your last A1c was 8.7 Goal converted from Patient Problem data . Goal is currently In Progress. Added 11/19/2006 - In Progress Goal: Improve breathing. Goal converted from Patient Problem data . Goal is currently In Progress. Added 11/19/2006 - In Progress Goal: Your blood pressure goal is 150/80 (JNC 8 guidelines) SOAPP and PADT documentation completed. Added 11/19/2006 - In Progress Goal: Control chronic pain Goal converted from Patient Problem data . Goal is currently In Progress. Added 11/19/2006 - In Progress Goal: Minimize both cardiovascular event risk and risk of side effects of medicines and interventions. Goal converted from Patient Problem data . Goal is currently In Progress. Added 09/06/2007 - In Progress Goal: GET OFF THE CIGARETTES!!!! Goal converted from Patient Problem data . Goal is currently In Progress. Added 09/06/2007 - In Progress Goal: Decrease anxiety. Goal converted from Patient Problem data . Goal is currently In Progress. Added 12/13/2007 - In Progress Goal: Keep Vitamin D level in normal range.Avoid fractures. Goal converted from Patient Problem data . Goal is currently In Progress. Added 05/21/2009 - In Progress Goal: Improve sleep. Goal converted from Patient Problem data . Goal is currently In Progress. Added 02/08/2011 - In Progress Goal: Maintain normal bowel movements. Goal converted from Patient Problem data . Goal is currently In Progress. Added 01/14/2014 - In Progress Goal: Improve back pain. Goal converted from Patient Problem data . Goal is currently In Progress. Added 01/21/2014 - In Progress Goal: Avoid episodes of fast heart beat. Goal converted from Patient Problem data . Goal is currently In Progress. Added 04/21/2015 - In Progress Goal: Goal for Cellulitis Goal converted from Patient Problem data . Goal is currently In Progress. Added 01/04/2015 - In Progress Goal: Goal for Anemia Goal converted from Patient Problem data . Goal is currently In Progress. Added 05/31/2016 - In Progress Goal: Goal for Abdominal Pain
--- OUTSIDE RECORDS SUMMARY | 2020-04-14 14:06 | CCD ---
Author Author [employer] in my [employer] (PRIMP) Organization [email or web address] Address [address] [place] [address] Phone Care Team Providers Care Cleaning Staff Supervisor Name Role Phone Cullen Blackwell DO PP [phone] Cullen Blackwell DO Unavailable [phone] Chon Arnold MD Unavailable [phone] Magnetic, Imaging Unavailable [phone] [facility] Nurse, Practitioners Unavailable [phone] [facility] Radiology, Imaging Unavailable [phone] [facility], Radiology Unavailable [phone] Post DPM, Jovon Unavailable [phone] [facility] Urology, Clinic Unavailable [phone] Pavel KIM, Eddy Unavailable [phone] Miguel KIM, Priyanka Unavailable [phone] Bettina Box MD Unavailable [phone] Reason for Referral No Reason for Referral [...] now since stopping relafen- observe; consider recheck [facility] if recurrence Persistent Insomnia 05/21/2009 Valdez [...] told needed cardiac echo while in hospital [facility] for dramatic increase in shortness of breath [...] MG MAMMOGRAM BILAT DIG SCREEN 06/13/19 Cullen Blackwell DO Referrals To Diagnosis GI Dysphagia, Unspecifi ed Note: Please schedule patient with Pavel tinajero--liver abnormalities and weight loss, abdominal pain--[place] [facility] MRI Note: Please schedule patient for test c spine and thoracic spine. [facility] radiology [place]. Eval pain and h/o golf [...] Please schedule patient with provi kassi at [facility]. History of cervical and thoracic back pain. Dermatology Cellulitis and Absce ss of Unspecified Sites Note: Please schedule patient with provi kassi. recurrent celluulitis to face. hospitilazation. [place] chest low dose (smoking screening) Referral [...] Please schedule patient with provi kassi dr berny hunter dm feet and calluses on both big [...] patient with provi kassi dr [facility] [place];; his partner with foreign name (bhumi galvez) is good and she wants to see him as dr lopez has moved on Urology Urinary tract infect ion, site not specified Note: Please schedule patient with cti derPLEASE REFER FOR EVAL OF DIFFICULTY URINATING [...] ibrillation Note: I tried to call her manager recruiting, but the physician mailbox is FULL she needs hospital followup, but on Sunday of her admission. I discussed her case with Dr. Rivera here, she became very bradycardic with ambulation and he and I Think she may need electrophysiologic studies-please convey to [facility] provider Cardiology Essential (primary) hypertension Note: Please schedule patient with provi kassi Pulmonology Emphysema, unspecifi ed Note: Please schedule patient with provi kassi;;; [facility] quit [facility];; worsening short of breath especially since weather has been so hot. Urology Urinary tract infect ion, site not specified Note: Please schedule patient with provi kassi PLEASE REFER TO [facility]. HAS BEEN SEEN THERE IN THE PAST. WOULD LIKE EVAL FOR RECURRENT UTI SX. 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 please set up Future Appointments Date Time Location Provider Chronic Disease Follow-up 02/13/2020 1:00PM [facility] Harish Carbajal NP Chronic Disease Follow-up 05/14/2020 1:30PM [facility] Harish Carbajal NP Future Tests Order Diagnosis Results Due Ordering Provid er Visit Summary - *Standard Visit wLab Visit Summary with Labs Type 2 diabetes mellitus with other specified complication 02/10/20 Beverley thakur ASH KIER BOILER Lab (CBC)COMPLETE BLOOD CNT 03/11/20 Harish Carbajal NP Lab COMPREHENSIVE METABOLIC PANEL 03/11/20 Harish Carbajal NP Lab LIPID PANEL 03/11/20 Harish Steele P Lab MICROALBUMIN RANDOM 03/11/20 Harish robles NP Lab TSH 03/11/20 Harish Steele P Findings Encounter Date Instructions for patient Chronic [...] of receipt or receiving provider [facility] Chronic Disease Follow-up with Harish Carbajal NP 10/10/2019 Ordered follow-up visit Chronic Disease Follow-up with Harish Carbajal NP 10/10/2019 Ordered return to the clinic if condition worsens or n ew symptoms arise Chronic Disease Follow-up with Harish Carbajal NP 10/10/2019 Ordered Clinical summary transmitted to referring provider electronically with reasonable certainty of receipt or receiving provider electronically through [facility] Acute L2 with Harish Carbajal NP 07/24/2019 [...] SHE WILL TAKE THE DIFLUCAN ENRIQUE, AND AIRPLANE PATROLLER FLAGYL, BUT HOLD OFF ON TAKING IT UNTIL WE GET AFFIRM RESULTS BACK. SHE HAS A ROUTINE APPT. WITH HER PCP IN 3 DAYS. WE WILL F/U BY PHONE IN THE MEANTIME Acute L3 with Harish Mcmahan NP 07/21/2019 Ordered Clinical summary transmitted to referring provider electronically with reasonable certainty of receipt or receiving provider electronically through [employer] [facility] Acute L3 with Harish Mcmahan NP 07/21/2019 Ordered return to the clinic if condition worsens or n ew symptoms arise Acute L3 with Harish Mcmahan NP 07/21/2019 Instructions for patient AHR with Cullen Blackwell DO 12/2019 Ordered Clinical summary transmitted to referring provider electronically with reasonable certainty of receipt or receiving provider electronically through [employer] [facility] AHR with Cullen Blackwell DO 06/09/2019 Ordered follow-up visit AHR with Cullen Blackwell DO 12/2019 Ordered return to the clinic if condition worsens or n ew symptoms arise AHR with Cullen Blackwell DO 06/09/2019 Ordered Clinical summary transmitted to referring provider electronically with reasonable certainty of receipt or receiving provider electronically through [employer] [facility] Chart Update with Claire Wheeler RN 06/09/2019 Instructions for patient Hospital Follow-up with Harish kramer NP 03/28/2019 Ordered Clinical summary transmitted to referring provider electronically with reasonable certainty of receipt or receiving provider electronically through [employer] [facility] Hospital Follow-up with Harish Carbajal NP 03/28/2019 Ordered follow-up visit Hospital Follow-up with Harish steele NP 03/28/2019 Ordered return to the clinic if condition worsens or n ew symptoms arise Hospital Follow-up with Harish Carbajal NP 03/28/2019 Instructions for patient Same Day Acute with Cullen escobar DO 01/30/2019 Ordered Clinical summary transmitted to referring provider electronically with reasonable certainty of receipt or receiving provider electronically through [employer] [facility] Same Day Acute with Cullen Blackwell DO 01/30/2019 Ordered follow-up visit Same Day Acute with Cullen lew DO 01/30/2019 Ordered return to the clinic if condition worsens or n ew symptoms arise Same Day Acute with Cullen Blackwell DO 01/30/2019 Instructions for patient Establish Care with Cullen escobar DO 12/03/2018 Ordered Clinical summary transmitted to referring provider electronically or receiving provider electronically through [facility] Establish Care with Cullen Blackwell DO 12/03/2018 Ordered follow-up visit Establish Care with Cullen lew DO 12/03/2018 Ordered return to the clinic if condition worsens or n ew symptoms arise Establish Care with Cullen Blackwell DO 12/03/2018 Instructions for patient Hospital Follow-up with Harish kramer NP 09/16/2018 Ordered Clinical summary transmitted to referring provider electronically or receiving provider electronically through [facility] Hospital Follow-up with Harish Carbajal NP 09/16/2018 [...] provider electronically or receiving provider electronically through [facility] Chronic Disease Follow-up with Valdez Stephens MD 08/14/2018 Ordered return to the clinic if condition worsens or n ew symptoms arise Chronic Disease Follow-up with Valdez Stephens MD 08/14/2018 Ordered Clinical summary transmitted to referring provider electronically or receiving provider electronically through [facility] Chronic Disease Follow-up with Valdez Stephens MD [...] provider electronically or receiving provider electronically through [facility] Hospital Follow-up with Irena Bush NP 12/13/2017 [...] provider electronically or receiving provider electronically through [facility] Hospital Follow-up with Valdez Stephens MD 11/12/2017 Return to the clinic if condition worsens or new sympt oms arise Hospital Follow- up with Valdez Stephens MD 11/12/2017 Ordered Clinical summary transmitted to referring provider electronically or receiving provider electronically through [facility] AHR with Valdez Stephens MD 07/13/2017 Ordered return to the clinic if condition worsens or n ew symptoms arise AHR with Valdez Stephens MD 07/13/2017 Ordered follow-up visit Same Day Acute with Valdez Stephens MD 04/11/2017 Return to the clinic if condition worsens or new sympt oms arise Chronic Disease Follow-up with Valdez Stephens MD 01/15/2017 Ordered Transition in care, clinical sum harish provided electronically through [facility] Diabetes Follow-up with Valdez Stephens MD 11/06/2016 Return to the clinic if condition worsens or new sympt oms arise Diabetes Follow- up with Valdez Stephens MD 11/06/2016 Ordered Transition in care, clinical sum harish provided electronically through [facility] Chronic Disease Follow-up with Valdez Stephens MD [...] ew symptoms arise Hospital Follow-up with Cullen Blackwell DO 10/28/2015 Instructions for patient Walk-In with Cullen Blackwell DO 10/22/2015 Ordered follow-up visit Walk-In [...] Acute with Harish Mcmahan NP 01/04/2015 THE PILOT FUEL ENGINEER SAID THAT YOUR EKG IS COMPLETELY NORMAL. YOUR OXYGEN LEVEL IS NORMAL TODAY. SINCE YOU FELT BETTER AFTER THE NEBULIZER TREATMENT, WE WILL CALL YOUR PILOT FUEL ENGINEER AND DISCUSS THIS WITH YOUR PRIMARY CARE [...] arise Same Day Acute with Claire Carbajal NP 10/12/2013 Return to the clinic if condition worsens or new sympt oms arise Chronic Disease Follow-up with Valdez Stephens MD 08/15/2013 augmentin and sx care for sinus inf b actroban to ear and neck left famvir for shingles lortab PRN pain return if any increase in sx M Same Day with Irena Bush NP 07/14/2013 Ordered disposition - Patient or careta ker was instructed in use of antipyretics and [...] 07/14/2013 [facility] done and [facility]. Abnormal lung sounds persisted despite albuterol treatment. Oximetry at rest (96%) and w/ exertion (93% then back to 96%) TONNY Garrett also in to listen to lungs and assess oropharynx. Had discussion with patient about symptoms and findings and patient advised to go to ER via ambulance transport for further evaulation and monitoring of respiratory status, along wth evaluation for ulcers on oropharynx. Discussed with [...] this time. She will be going to [place], [place]. *seen by TONNY Hill M Same [...] follow-up visit 10 days with RODRIGUEZ Chavez (CAT) if not completely resolved, or if wants [...] UNDERSTANDING M Same Day with Harish Mcmahan NP 01/15/2012 Ordered return to the clinic if condition worsens or n ew symptoms arise M Same Day with Harish Mcmahan NP 01/15/2012 Ordered fluids M Same Day with [...] fluids M Same Day with Harish patel [employer] BOILER 10/24/2011 Ordered return to the clinic if [...] 3 months M Office Visit - Long [facility] Valdez Stephens MD 04/06/2010 Ordered [...] 3 months M Office Visit - Long [place] jonah Stephens MD 09/01/2009 Ordered return to the [...] visit in 3 months M Health Review-Short [facility] Valdez Stephens MD 02/12/2009 Ordered [...] Atrial fibrillation and flutter Chronic Disease Follow-up [facility] Harish Carbajal NP 02/10/2020 Cardiomyopathy [...] Atrial fibrillation and flutter Chronic Disease Follow-up [facility] Harish Carbajal NP 10/10/2019 Chest pain Chronic Disease Follow-up with Harish rahman NP 10/10/2019 Coronary artery disease Chronic Disease Follow-up with Harish Carbajal NP 10/10/2019 Dermatophytosis Chronic Disease Follow-up with Harish rahman NP 10/10/2019 Emphysema Chronic Disease Follow-up with Harish rahman NP 10/10/2019 Generalized anxiety disorder Chronic Disease Follow-up with Harish Carbajal [employer]ER 10/10/2019 Hyperlipidemia Chronic Disease Follow-up with Talita Ros rahman NP 10/10/2019 Hypertension Chronic Disease Follow-up with Talita Ros rahman NP 10/10/2019 Sinusitis Chronic Disease Follow-up with Talita Ros rahman [employer]ILER 10/10/2019 Type 2 diabetes mellitus with complication Chronic Dis ease Follow-up with Harish Carbajal NP 10/10/2019 Complex regional pain syndrome type I of the [place] Acute L2 with Harish Carbajal A[employer] K[employer] BOILER 07/24/2019 Low back pain Acute L2 with Harish Carbajal A[employer] K[employer] BOILER 0 Acute vaginitis Acute L3 with Harish Mcmahan NP 07/21/2019 Microscopic hematuria Acute L3 with Harish patel [employer] BOILER 07/21/2019 Cardiomyopathy Telephone Encounter with Cullen escobar [...] disease Hospital Follow-up wit h Harish Carbajal NP 03/28/2019 Congestive heart failure Hospital Follow-up with Harish kramer [employer]ILER 03/28/2019 Type 2 diabetes mellitus with complication Hospital Fo llow-up with Harish Carbajal [employer]ILER 03/28/2019 Vaginitis Hospital Follow-up with Harish Carbajal A[employer] K[employer] BOILER 03/28/2019 Acute bronchitis Same Day Acute with Cullen Blackwell DO 01/30/2019 Atrial fibrillation and flutter Same Day Acute with Cullen Blackwell DO 01/30/2019 Bulging cervical disc Same Day Acute with Cullen crowley DO 01/30/2019 Cardiomyopathy Same Day Acute with Cullen Blackwell DO 01/30/2019 Emphysema Same Day Acute with Cullen Blackwell DO 01/30/2019 Hypertension Same Day Acute with Cullen Culp Reginaldharmeetluz DO 01/30/2019 Type 2 diabetes mellitus with complication Same Day Ac alfred with Cullen Culp Reginaldyolanda DO 01/30/2019 Atrial fibrillation and flutter Establish Care with Cullen Culp Reginaldharmeetluz DO 12/03/2018 Bulging cervical disc Establish Care with Cullen Culp Reginaldharmeetrachel crowley DO 12/03/2018 Hypertension Establish Care with Cullen Culp Reginaldharmeetluz DO 12/03/2018 Type 2 diabetes mellitus with complication Establish C are with Cullen Culp Rosalva DO 12/03/2018 Atrial fibrillation and flutter Hospital [...] 05/17/2018 Type 2 diabetes mellitus with complication [facility] Diabetes Foot Exam with Cullen Blackwell DO [...] complication Same Day Acute wi th Valdez Stephens MD 04/11/2017 Abdominal pain Chronic Disease Follow-up with Valdez rodirguez MD 01/15/2017 Anemia Chronic Disease Follow-up with [...] Disease Follow-up wi th Valdez Stephens MD 09/11/2016 Complex regional pain syndrome type I of the [place] Chronic Disease Follow- up with Valdez Stephens MD 09/11/2016 Emphysema Chronic Disease Follow-up with Valdez rodriguez MD 09/11/2016 Type 2 diabetes mellitus with complication Chronic Dis ease Follow-up with Valdez Stephens MD 09/11/2016 Acute bronchitis Walk-In with Harish Love Isidro Mcmahan [employer] BOILER 07/10/2016 Acute sinusitis Walk-In with Harish Love Isidro Mcmahan [employer] BOILER 07/10/2016 Nicotine dependence Walk-In with Harish Love Isidro Mcmahan [employer] K[employer] BOILER 07/10/2016 Urinary tract infection Walk-In with Harish Love Isidro Remi woodruff [employer] K[employer] BOILER 07/10/2016 Abdominal pain ongoing abd pain gastrop [...] Disease Follow- up with Valdez Stephens MD 01/28/2016 Constipation Chronic Disease Follow-up [...] told needed cardiac echo while in hospital [facility] for dramatic increase in shortness of breath [...] also history of cardiomyopathy. Is followed by [facility] cardiology Hospital Follow-up with Cullen Blackwell [...] 1 metformin in am Hospital Follow-up with Cullenviky Blackwell DO 016 Atrial fibrillation and flutter hx of / also history of cardiomyopathy. Is followed by [facility] Walk-In with Cullen Blackwell DO 10/22/2015 Atypical chest pain Walk-In with Cullen Robbi Montelongoharmeetluz DO 10/01 Dyspnea Walk-In with Cullen Culp Reginaldharmeetluz DO 10/01 Hypertension Walk-In with Cullen Culp Rosalva DO 10/01 Sinus bradycardia /sick sinus Walk-In with Cullen Culp Reginaldharmeet ulz DO 10/22/2015 Type 2 diabetes mellitus with complication Walk-In with Penny Blackwell DO 10/22/2015 Anemia Chronic Disease Follow-up with Valdez rodriguez MD 08/04/2015 Assessment of shortness of breath Chronic Disease Foll ow-up with Valdez Stephens MD 08/04/2015 Atrial fibrillation and flutter Chronic Disease Follow-up [facility] Valdez Stephens MD 08/04/2015 Cellulitis Chronic Disease [...] 2 diabetes mellitus Chronic Disease Follow-up wi Valdez Stephens MD 04/21/2015 Cellulitis right second [...] regional pain syndrome type I of the [facility] Hospital Follow-up with Valdez Stephens MD 03/08/2015 [...] Atrial fibrillation and flutter Chronic Disease Follow-up [facility] Valdez Stephens MD 01/15/2015 Constipation Chronic Disease Follow-up with Valdez rodriguez MD 01/15/2015 Emphysema Chronic Disease Follow-up with Valdez rodriguez MD 01/15/2015 Hyperlipidemia Chronic Disease Follow-up with Valdez rodriguez MD 01/15/2015 Hypertension Chronic Disease Follow-up with Valdez rodriguez MD 01/15/2015 Type 2 diabetes mellitus with complication Chronic Dis ease Follow-up with Valdez Stephens MD 01/15/2015 Abdominal bloating Follow-up Acute with Harish Lima huyen [employer] K[employer] BOILER 01/04/2015 Acute upper respiratory infection Follow-up Acute with Harish Felix Martir [employer] K[employer] BOILER 01/04/2015 Anemia Follow-up Acute with Harish Lima ummagacedric [employer] KIER BOILER 01/04/2015 Assessment of shortness of breath Follow-up Acute with Harish Felix Martir ASH KIER BOILER 01/04/2015 Atrial fibrillation and flutter Follow-up Acute with Emiliano Love Isidro Martir [employer] KIER BOILER 01/04/2015 Hypothyroidism Follow-up Acute with Harish Lima ummagacedric A[employer] K[employer] BOILER 01/04/2015 Urinary tract infection, geriatric presentation Follow -up Acute with Harish Felix Martir ASH KIER BOILER 01/04/2015 Acute upper respiratory infection Walk-In with Harish flowers Martir [employer] K[employer] BOILER 12/31/2014 Atrial fibrillation and flutter Walk-In with Harish Reyes suzanne Mcmahan [employer] K[employer] BOILER 12/31/2014 Emphysema Walk-In with Harish Felix Martir ASH KIER BOILER 12/31/2014 Nicotine dependence Walk-In with Harish Felix Martir [employer] BOILER 12/31/2014 Urinary tract infection, geriatric presentation Walk-I n with Harish Felix Martir A[employer] KIER BOILER 12/31/2014 Atrial fibrillation and flutter Chronic Disease [...] 10/16/2014 Persistent insomnia Chronic Disease Follow-up with aVldez rodriguez MD 10/16/2014 Thoracic radiculopathy Chronic Disease Follow-up with Valdez Stephens MD 10/16/2014 Type 2 diabetes mellitus with complication Chronic Dis ease Follow-up with Valdez Stephens MD 10/16/2014 Vitamin D deficiency Chronic Disease Follow-up with Valdez wong MD 10/16/2014 Atrial fibrillation and flutter Chronic Disease Follow-up [facility] Valdez Stephens MD 08/07/2014 Complex regional pain [...] Atrial fibrillation and flutter Chronic Disease Follow-up [facility] Valdez Stephens MD 05/01/2014 Complex regional pain [...] Chronic Disease Follow-up with Valdez wong MD 05/01/2014 Chronic serous otitis media of both ears Walk-In with Luannenia Mcmahan [employer]ILER 04/13/2014 Urinary tract infection Walk-In with Harish Love Isidro Remi woodruff [employer] K[employer] BOILER 04/13/2014 Pneumonia finishing levaquin today afte r [...] Stephens MD 01/21 Hyperlipidemia AHR with Valdez Stehpens MD 01/21/2014 Hypertension AHR with Valdez Stephens [...] sched MRI;; cspi ne and thoracic spine. [facility] [place]ology [place]. Eval pain and h/o golf ball size mass on MRI in mid thoracic spine around 1994 injury time. H/o fall out of tree onto that area age 15 but no eval at that time. Increased pain past 7 months Chronic Disease Follow-up with Valdez Stephens MD 01/14/2014 Cellulitis left lower leg Same Day Acute with Angela fisher [employer] BOILER 12/30/2013 Dermatitis Same Day Acute with Alma MERCEDES 12/19/2013 Atopic dermatitis Same Day Acute with Claire Carbajal NP 10/12/2013 Otitis externa Same Day Acute with [...] area M Same Day with Irena Bush NP 07/14/2013 Chronic bronchitis with acute exacerbation M Same Day with Katya Simon [employer]ER 12/03/2012 Dysphagia ; abdominal pain. Continues w [...] Acute bronchitis M Same Day with Harish Love Isidro Luis Daniel patel [employer] BOILER 01/15/2012 Emphysema M Same Day with Harish Love Isidro Luis Daniel patel [employer] BOILER 01/15/2012 Bronchitis M Same Day with Claire Carbajal ASH K[employer] BOILER 12/31 Gastritis vomiting episodes at least mo [...] otitis media M Same Day with Harish Love Agustin Mcmahan [employer] BOILER 10/24/2011 Lump or mass in the right breast M Same Day with Harish Love Isidro Mcmahan [employer] BOILER 10/24/2011 No cerumen impaction M Same Day with Luannenia woodruff A[employer] K[employer] BOILER 10/24/2011 Normal routine history and physical AHR [...] now since stopping relafen- observe; consider recheck [facility] if recurrence AHR with Valdez Stephens [...] Valdez Stephens MD 07/27 Palpitations ref to [facility] cardiology e jay rapid heart beat and near faint, light headed appros 1 wk ago causing a fall M 20 Minutes with Valdez Stephens MD 07/27/2010 Normal routine history and physical M Office Visit - [place] Valdez Stephens MD 04/06/2010 Normal routine history [...] - Short with Cullen kuhn DO 01/25/2009 Chronic obstructive pulmonary disease M Office Visit - Short with Cullen Blackwell DO 01/25/2009 Emphysema M Office Visit - Short with Cullen kuhn DO 01/25/2009 Mild Cognitive Impairment bloodwork; MRI; consider [facility] eval 30 minutes with Valdez Stepehns MD 11/27/2008 Normal examination 30 minutes with [...] lower quadrant pain once a day Nystatin [id number] UNIT/GM External Powder 10/10/2019 Provider: Harish Carbajal [...] specified once a day D3-50 1.25 MG (83741 UT) Oral Capsule 07/24/2019 Pr ovider: Harish [...] MG Oral Tablet 01/27/2019 Provider: Rubina Christian SPINNING FRAME [employer]ER Diagnosis: as directed 1/2 tab (0.5mg) po [...] 12/23/2019 - 01/22/2020 Provid er: Harish Carbajal NP Diagnosis: Low back pain four times a day use sparingly MDD=4 Percocet 5-325 MG Oral Tablet 11/25/2019 - 12/23/2019 Provid er: Cullen Blackwell DO Diagnosis: Low back pain four times a day use sparingly MDD=4 Percocet 5-325 MG Oral Tablet 10/28/2019 - 11/25/2019 Provid er: Talita Shaben [employer]ILER Diagnosis: Low back pain four times a day use sparingly MDD=4 Fluticasone Propionate 50 MCG/ACT Nasal Suspension 0 - 12/09/2019 Provider: Harish Carbajal NP Diagnosis: Chronic sinusitis, u nspecified 2 sprays [...] 09/29/2019 - 10/28/2019 Provid er: Irena Bush [employer]ILER Diagnosis: Low back pain four times a [...] 08/01/2019 - 08/29/2019 Provid er: Harish Carbajal [employer]ILER Diagnosis: Low back pain four times a day use sparingly MDD=4 Due 08/02/2019 [facility] Miconazole 7 2% Vaginal Cream 07/25/2019 - 10/10/2019 Pr ovider: Harish Mcmahan [employer]ILER Diagnosis: AAA BID Rapaflo 8 MG Oral Capsule 07/21/2019 - 10/10/2019 Provider: Diagnosis: prn Diflucan 150 MG Oral Tablet 07/21/2019 - 10/10/2019 Provider : Harish Mcmahan [employer]ILER Diagnosis: take 1 now, and repeat in 10 -14 days, if needed. Flagyl 500 MG Oral Tablet 07/21/2019 - 10/10/2019 Provider: Harish Mcmahan [employer] Diagnosis: twice a day DO NOT DRINK [...] Oral Tablet 03/31/2019 - 07/21/2019 Pro vider: Harish Carbajal [employer] Diagnosis: twice a day Fluconazole 150 MG Oral Tablet 03/28/2019 - 07/21/2019 Provi kassi: Talita Raven [employer]ILER Diagnosis: Acute vaginitis 1 tab once Percocet [...] four times a day use . MDD=4 Cefuroxime Axetil 500 MG Oral Tablet [...] four times a day use . MDD=4 Ventolin HFA 108 (90 Base) MCG/ACT Inhalation Aerosol Solution 01/01/2019 - 07/24/2019 Provider: Irena Bush NP Diagnosis: Emphysema, unspecifi ed 2 puffs four times a day as needed for breathing Percocet 5-325MG Oral Tablet 12/13/2018 - 01/09/2019 Provide r: Culeln Blackwell DO Diagnosis: Low back pain Use four times a day use springly. MDD=4 Lansoprazole 30MG Oral Capsule Delayed Release 12/03/2018 - 10/10/2019 Provider: Cullen Blackwell DO Diagnosis: Left lower quadrant pain once a day Levothyroxine Sodium 50MCG Oral Tablet 12/03/2018 - 10/10/19 Provider: Cullen Blackwell DO Diagnosis: Hypothyroidism, unsp ecified once a day Venlafaxine HCl ER 75MG Oral Capsule Extended Release 24 Hour 12/03/2018 - 10/10/2019 Provider: Cullen Blackwell DO Diagnosis: Anxiety disorder, un specified once a day Furosemide 40MG Oral Tablet 12/03/2018 - 07/21/2019 Provider : Diagnosis: Furosemide 20MG Oral Tablet 12/03/2018 - 12/03/2018 Provider : Diagnosis: per D/C summary dated 09/13/18 [facility] Melatonin 10MG [...] four times a day use springly. MDD=4 Zolpidem Tartrate 5MG Oral Tablet 11/12/2018 [...] 09/16/2018 - 12/03/2018 Provider : Diagnosis: per D/Reed summary dated 09/13/18 guaiFENesin ER 600MG Oral Tablet Extended Release 12 H our 09/16/2018 - 12/03/2018 Provider: Diagnosis: Furosemide 20MG Oral Tablet 09/16/2018 - 09/16/2018 Provider : Diagnosis: D3-50 [id number] Oral Capsule 09/12/2018 - 07/24/2019 Provide r: [...] 25MG Oral Tablet 05/24/2018 - 07/12/2018 Provider: Valdez Stephens MD Diagnosis: once daily- [...] Tablet 2018 - 04/23/2018 Provide r: Tori LANCASTER Diagnosis: Low back pain four times a [...] Blue In Vitro Strip 11/12/2017 - 08/14/2018 Scott nealder: Valdez Stephens MD Diagnosis: Type 2 diabetes [...] In Vitro Strip 07/13/2017 - 11/12/2017 Scott nealder: Valdez Stehpens MD Diagnosis: Type 2 diabetes amie itus [...] Diagnosis: Anemia, unspecified once a day D3-50 [id number] Oral Capsule 07/13/2017 - 09/12/2018 Provide r: [...] Tablet 06/13/2017 - 01/23/2018 Provider: Irena Bush [employer] Diagnosis: Complex regional zhou n syndrome I [...] solution 04/13/2017 - 07/13/2017 Provider: Irena Bush [employer]ER Diagnosis: Chronic obstructive pulmonary disease, unspecified as [...] 5MG Oral Tablet 04/11/2017 - 05/09/2017 Provider: Valdez Stephens MD Diagnosis: Chronic obstructive [...] In Vitro Strip 01/15/2017 - 07/13/2017 Scott nealder: Valdez Stephens MD Diagnosis: Type 2 diabetes [...] 10MG Oral Tablet 12/22/2016 - 11/12/2017 Provider: Harish Mcmahan [employer] Diagnosis: Type 2 diabetes amie itus with [...] 11/09/2016 - 01/15/2017 P rovider: Diane Gardner A[employer] BOILER Diagnosis: Type 2 diabetes amie itus with [...] Diagnosis: Anemia, unspecified once a day D3-50 [id number] Oral Capsule 09/11/2016 - 07/13/2017 Provide r: [...] Release 2016 - 10/11/2016 Provider: Irena Bush [employer]ILER Diagnosis: Cervicalgia twice a day MDD=2 Morphine Sulfate ER 15MG Oral Tablet Extended Release 2016 - 08/23/2016 Provider: Valdez Stephens MD Diagnosis: Cervicalgia twice a day MDD=2 Ceftin 500MG Oral Tablet 07/10/2016 - 09/11/2016 Provider: Harish Mcmahan [employer] Diagnosis: twice a day Bentyl 20MG Oral [...] Provid er: Diagnosis: OTC Calcium + D3 [id number] Oral Tablet 05/31/2016 - 017 Provider: Diagnosis: 2 tabs once daily Morphine Sulfate ER 15MG Oral Tablet Extended Release 2016 - 07/10/2016 Provider: Valdez Stephens MD Diagnosis: Cervicalgia twice a day MDD=2 Ambien CR 12.5 MG Tablet Extended Release 05/01/2016 - 10/18 Provider: Harish Mcmahan NP Diagnosis: Primary insomnia 1 every bedtime take 1 at bedtime (Do not fill until 10/23/ 6) Macrobid 100 MG Capsule 04/27/2016 - [...] Diagnosis: Anemia, unspecified once a day D3-50 76815 UNIT Capsule 01/28/2016 - 09/11/2016 Provider: Valdez [...] Tablet Extended Release 24 Hour 6 - 01/28/2016 Provider: Valdez Stephens MD Diagnosis: [...] 108 (90 Base) MCG/ACT Aerosol Solution 11/10/19 16 - 01/28/2016 Provider: Valdez Stephens MD Diagnosis: [...] 40 MG OR TABS 08/06/2015 - 10/22/2015 P rovider: Diagnosis: Hyperlipidemia, unsp ecified Losartan Potassium 50 MG Tablet 08/04/2015 - 11/10/2015 Prov ider: Vladez Stephens MD Diagnosis: Hypertension Unspeci fied Essential [...] 25 MCG Tablet 08/04/2015 - 01/26/2016 Scott rovider: Valdez Stephens MD Diagnosis: Hypothyroidism, unsp ecified once a day Lansoprazole 30 MG Capsule Delayed Release 08/04/2015 - 01/01 Provider: Valdez Stephens MD Diagnosis: Left lower quadrant pain once a day Ferrous Sulfate 325 (65 Fe) MG Tablet 08/04/2015 - 6 Provider: Valdez Stephens MD Diagnosis: Anemia, unspecified once a day D3-50 67921 UNIT Capsule 08/04/2015 - 01/28/2016 Provider: Valdez [...] at bedtime (Do not fill until 6) SMZ-TMP DS 800-160 MG Tablet 04/21/2015 [...] EQ Multivitamin Gummies Tablet Chewable 01/15/2015 - 08/03/2 016 Provider: Diagnosis: 2 gummies in the [...] MG Tablet 01/01/2015 - 6 Provider: Harish Mcamhan NP Diagnosis: once a day Ceftin 500 MG Tablet 12/31/2014 - 01/10/2015 Provider: Harish Mcmahan NP Diagnosis: twice a day Darin Multivitamin for Women Tablet 12/31/2014 - 01/15/2015 Scott nealder: Diagnosis: Ciprofloxacin HCl 500 MG Tablet 12/31/2014 - 12/31/2014 Prov ider: Diagnosis: per [facility] montoya for ten days D3-50 38261 UNIT Capsule 11/19/2014 - 08/04/2015 Provider: Harish Mcmahan NP Diagnosis: Unspecified Vitamin D Deficiency Once a month Permethrin 5 % Cream 11/09/2014 - 01/04/2015 Provider: Diagnosis: apply cream from neck down, leave on for 8 hrs then wash off. May repeat in 1 week if needed. D3-50 49602 UNIT Capsule 11/09/2014 - 11/19/2014 Provider: Harish Mcmahan NP Diagnosis: Unspecified Vitamin D Deficiency Once a month Ciprofloxacin HCl 0.3 % Solution 10/21/2014 - 01/04/2015 Pro vider: Valdez Stephens MD Diagnosis: 2 drops each ear three times a day Ciprofloxacin HCl 0.3 % Solution 10/21/2014 - 10/21/2014 Pro vider: Diagnosis: 2 drops in each ear 3 times a day Coadyhoa-Ultquupfb-BW 3.5-07731-1 Solution 10/16/2014 - 10/02 Provider: Valdez Stephens [...] 25 MCG Tablet 10/16/2014 - 08/04/2015 Scott nealder: Valdez Stephens MD Diagnosis: Unspecified Acquired Hypothyroidism [...] Sodium 25 MCG Tablet 09/07/2014 - 10/16/2014 P rovider: Valdez Stephens MD Diagnosis: Unspecified Acquired Hypothyroidism once a day Lansoprazole 30 MG Capsule, delayed-release 09/07/2014 - Provider: Valdez Stephens MD Diagnosis: Abdominal Pain Left Lower Quadrant once a day Zostavax 95120 UNT/0.65ML Solution, when reconstituted 08/07 - 09/01/2014 Provider: Valdez Stephens MD Diagnosis: Routine General Medi santi Examination At a Health Care Facilit as directed please adminsiter at pharmacy GNP [...] day per hospital (Instead of losartan) Zostavax 78856 UNT/0.65ML Solution, when reconstituted 05/08 - 09/01/2014 [...] TABS 04/13/2014 - 05/01/2014 Provid er: Harish Felix Martir MEDRANO Diagnosis: Morphine Sulfate ER 15 MG OR [...] : Diagnosis: one tab po [facility] last pill to be taken on 4 [...] 40 MG OR TABS 01/21/2014 - 05/01/2014 P rovider: Valdez Stephens MD Diagnosis: Unspecified Hyperlip idemia [...] and prn dx: 250.00 D3-50 1.25 MG (16045 UT) OR CAPS 01/14/2014 - 11/09/2014 Pro [...] 10 MG OR TABS 01/14/2014 - 01/21/2014 P valder: Valdez Stephens MD Diagnosis: 1 tab PO daily Betamethasone Dipropionate 0.05% EX CREA 01/14/2014 - 2013 Provider: Valdez Stephens MD Diagnosis: apply a thin film to affected area bid prn OneTouch UltraSoft Lancets [facility] [place]/14/2014 - 01/15/2017 Prov ider: Valdez Stephens [...] CREA 12/30/2013 - 2013 Provider: Angela Canchola NP Diagnosis: apply a thin film to affected [...] prn sparinglymdd 2 Vitamin D3 1.25 MG (33473 UT) OR CAPS 08/21/2013 - 4 Provider: [...] Anxiety State Unspec ified D3-50 1.25 MG (91454 UT) OR CAPS 08/15/2013 - 01/14/2014 Pro vider: Valdez Stephens MD Diagnosis: Unspecified Vitamin D Deficiency Cyclobenzaprine HCl 10 MG OR TABS 08/15/2013 - 08/15/2013 Pr ovider: Diagnosis: prescribed by [facility] but pt is only taking BID [facility] Melatonin 5 MG OR TABS 08/15/2013 - 10/12/2013 Provider: Diagnosis: 2 po qhs Combivent 18-103 MCG/ACT IN AERO 08/15/2013 - 10/12/2013 Pro vider: Diagnosis: Bisoprolol Fumarate 5 MG OR TABS 08/15/2013 - 10/12/2013 Pro vider: Michelle Carter MD Diagnosis: 1/2 tablet every morning Xarelto 20 MG OR TABS 08/15/2013 - 04/13/2014 Provider: Diagnosis: [facility] Melatonin 3 MG OR TABS 08/15/2013 - 08/15/2013 Provider: Diagnosis: 3 po at bedtime Atorvastatin Calcium 10 MG OR TABS 08/15/2013 - 10/12/2013 P valder: Diagnosis: 1 tab PO daily Famvir 500 MG OR TABS 08/06/2013 - 12/19/2013 Provider: Valdez Stephens MD Diagnosis: dilTIAZem HCl ER 120 MG OR CP12 08/06/2013 - 08/06/2013 Prov ider: Diagnosis: Take one tab PO BID(Cardio report 07/09/13) Lansoprazole 30 MG OR CPDR 08/06/2013 - 08/15/2013 Provider: aVldez Stephens MD Diagnosis: Abdominal Pain Left Lower [...] TABS 07/14/2013 - 12/30/2013 Provider: Irena Bush [employer]ER Diagnosis: 1-2 po q4-6h prnMDD-4 Famvir 500 MG OR TABS 07/14/2013 - 08/06/2013 Provider: Irena Bush [employer]ER Diagnosis: Bactroban 2% EX OINT 07/14/2013 - 07/14/2013 Provider: Irena Bush [employer]ER Diagnosis: Augmentin 875-125 MG OR TABS 07/14/2013 - 08/15/2013 Provide r: Irena Bush NP Diagnosis: Bactroban 2% EX OINT 07/14/2013 - [...] 1 before each meal D3-50 1.25 MG (25668 UT) OR CAPS 01/23/2013 - 08/15/2013 Pro vider: Valdez Stephens MD Diagnosis: Unspecified Vitamin D Deficiency Xarelto 20 MG OR TABS 01/23/2013 - 08/15/2013 Provider: Diagnosis: [facility] Atorvastatin Calcium 10 MG OR TABS 01/23/2013 - 08/15/2013 P rovider: Diagnosis: 1 tab PO daily Aspirin 81 [...] 90 MCG/ACT IN AEPB 11/13/2012 - 08/16/19 Provider: Valdez Stephens MD Diagnosis: Emphysema Nec [...] OR TABS 11/13/2012 - 01/23/2013 Provider: Diagnosis: [facility] Atorvastatin Calcium 10 MG OR TABS 11/13/2012 - 01/23/2013 P rovider: Diagnosis: 1 tab PO daily Ambien CR 12.5 MG OR TBCR 11/13/2012 - 06/06/2013 Provider: Valdez Stephens MD Diagnosis: Persistent Disorder of Initiating or Maintaining Sleep Venlafaxine HCl ER 75 MG OR TB24 11/13/2012 - 08/15/2013 Pro vider: Valdez Stephens MD Diagnosis: Anxiety State Unspec ified metFORMIN HCl 500 MG TABS 11/07/2012 - 11/13/2012 Provider: Valdez Stephens MD Diagnosis: [...] Ultra Blood Glucose STRP 07/26/2012 - 07/30/2013 P rovider: Valdez Stephens MD Diagnosis: use bid and prn OneTouch UltraSoft Lancets [facility] [place] 07/26/2012 - 01/14/2014 Prov ider: Valdez Stephens MD Diagnosis: bid and prn Atorvastatin Calcium 10 MG OR TABS 07/11/2012 - 11/13/2012 P antoniovider: Diagnosis: 1 tab PO daily Nystatin [id number] UNIT/GM EX CREA 07/11/2012 - 11/13/2012 Prov [...] 04/22/2012 - 05/17/19 13 Provider: Bettye Randall [employer]ILER Diagnosis: Emphysema Nec take as directed. Ambien CR 12.5 MG OR TBCR 04/22/2012 - 05/17/2012 Provider: Bettye Randall [employer]ILER Diagnosis: Persistent Disorder of Initiating or Maintaining Sleep take 1 tab PO QHS Ceftin 500 MG OR TABS 04/22/2012 - 05/17/2012 Provider: Bettye Randall NP Diagnosis: Obstructive Chronic Bronchitis Without Acute Exacerbation take 1 tab PO BID x 10 days predniSONE 20 MG OR TABS 04/22/2012 - 05/17/2012 Provider: Bettye Randall NP Diagnosis: Acute Bronchitis take 1 tab PO [...] AFTER 37.5 MG DOSING ONCE DAILY Cortisporin 3.5-53908-2 OT SOLN 02/05/2012 - 03/16/2012 Prov ider: [...] TABS 01/15/2012 - 02/05/2012 Provi kassi: Harish Felix Martir [employer]SH [employer] BOILER Diagnosis: Acute Bronchitis UAD Zithromax Z-Jasen 250 MG OR TABS 01/10/2012 - 01/15/2012 Provi kassi: Claire RobbiNeil Carbajal [employer]SH [employer] BOILER Diagnosis: Acute Bronchitis UAD Lansoprazole 30 MG [...] Hypertension Unspeci fied Essential D3-50 1.25 MG (31340 UT) OR CAPS 12/01/2011 - 01/22/2013 Pro vider: Valdez Stephens MD Diagnosis: Unspecified Vitamin D Deficiency Yfdfdtgs-Nbftdvlol-QZ 3.5-36364-2 OT SOLN 12/01/2011 - 12/10 Provider: Valdez [...] 1 po tid prn D3-50 1.25 MG (10018 UT) OR CAPS 09/04/2011 - 12/01/2011 Pro [...] 90 MCG/ACT IN AEPB 05/19/2011 - 12/01/19 Provider: Valdez Stephens MD Diagnosis: Emphysema Nec [...] Valdez Stephens MD Diagnosis: D3-50 1.25 MG (64496 UT) OR CAPS 02/08/2011 - 06/05/2011 Pro [...] 90 MCG/ACT IN AEPB 02/08/2011 - 05/19/19 Provider: Valdez Stephens MD Diagnosis: Emphysema Nec [...] Diagnosis: Unspecified Hyperlip idemia Nec Vitamin D 16888 UNIT OR CAPS 10/26/2010 - 12/01/2011 Provide [...] MD Diagnosis: Unspecified Acquired Hypothyroidism Vitamin D 96089 UNIT OR CAPS 07/27/2010 - 07/27/2010 Provide [...] day prn neuropathy pa in Vitamin D 47467 UNIT OR CAPS 07/27/2010 - 10/26/2010 Provide [...] TABS 07/25/2010 - 10/26/2010 Provider: Harish Mcmahan [employer]ILER Diagnosis: LORazepam 1 MG TABS 06/29/2010 - 08/25/2010 Provider: Valdez Stephens MD Diagnosis: Generalized Anxiety Disorder take one to two up to three times a day PRN ANXIETY OR SLEE P CODE A MDD=5 Cipro 500 MG OR TABS 05/22/2010 - 07/27/2010 Provider: Harish Mcmahan [employer]ILER Diagnosis: Combivent 18-103 MCG/ACT IN AERO 04/13/2010 [...] Unspecified Complication Type Ii or Unspecified Type 10 change to 2 in AM and 2 [...] Lumbago 1 po tid prn Vitamin D 98062 UNIT OR CAPS 04/06/2010 - 07/27/2010 Provide [...] OR TABS 12/31/2009 - 04/06/2010 Provider: Valdez Stepehns MD Diagnosis: Unspecified Acquired Hypothyroidism Reglan 10 [...] Provider: Valdez Stephens MD Diagnosis: Vitamin D 18432 UNIT OR CAPS 12/31/2009 - 04/06/2010 Provide [...] Provider: Valdez Stephens MD Diagnosis: Vitamin D 78250 UNIT OR CAPS 09/01/2009 - 09/01/2009 Provide [...] day prn neuropathy pa in Vitamin D 21327 UNIT OR CAPS 09/01/2009 - 12/31/2009 Provide [...] Diagnosis: 1 po tid prn Vitamin D 09821 UNIT OR CAPS 05/21/2009 - 09/01/2009 Provide [...] Diagnosis: 1 po tid prn Vitamin D 40938 UNIT OR CAPS 11/27/2008 - 05/21/2009 Provide r: Valdez Stephens MD Diagnosis: 1 po monthly Blood Glucose Test STRP 11/27/2008 - 09/01/2009 Provider: Valdez Stephens MD [...] Provider: Valdez Stephens MD Diagnosis: Vitamin D 38765 UNIT OR CAPS 08/28/2008 - 11/27/2008 Provide [...] OR TABS 06/16/2008 - 08/28/2008 Provider: Arnol ALMANZAC Diagnosis: LORazepam 1 MG TABS 06/01/2008 - [...] Provider: Valdez Stephens MD Diagnosis: Vitamin D 27689 UNIT OR CAPS 03/02/2008 - 08/28/2008 Provide [...] MD Diagnosis: 1 via neb daily prn Blood Glucose Test STRP 03/02/2008 - 08/28/2008 Provider: Valdez Stephens MD Diagnosis: use as needed, up to 2 daily LORazepam 1 MG TABS 03/02/2008 - 06/01/2008 Provider: Valdez Stephens MD Diagnosis: 1 BID PRN ANXIETY OR SLEEPCODE A Albuterol Sulfate (2.5 MG/3ML) 0.083% IN [place]BU 03/02/2008 - 0 11/27/2008 Provider: Valdze Stephens MD Diagnosis: 1 via juarez qid prn Cipro 250 MG OR TABS 12/15/2007 - 03/02/2008 Provider: Hairsh MERCEDES Diagnosis: take one tablet two times [...] MD Diagnosis: 2 po daily Vitamin D 63128 UNIT OR CAPS 10/28/2007 - 03/02/2008 Provide [...] OR TBCR 09/06/2007 - 11/12/2007 Provider: Valdez Stephnes MD Diagnosis: Blood Glucose Test STRP 09/06/2007 - 03/02/2008 Provider: Valdez Stephens MD Diagnosis: use as needed, up to 2 daily metFORMIN HCl 500 MG TABS 09/06/2007 - 03/02/2008 Provider: Valdez Stephens MD Diagnosis: AM and before dinner for glucose control Albuterol Sulfate (2.5 MG/3ML) 0.083% IN [place] 09/06/2007 - 1 05/03/2007 Provider: Valdez Stephens [...] 1 MG TABS 05/31/2007 - 06/12/2007 Provider: Valdez Stephens MD Diagnosis: 1 BID PRN ANXIETY OR SLEEPCODE A Cortisporin 3.5-65130-1 OT SOLN 05/31/2007 - 03/02/2008 Prov ider: [...] Diagnosis: Albuterol Sulfate (2.5 MG/3ML) 0.083% IN [facility] 03/01/2007 - 0 09/06/2007 Provider: Valdez tSephens MD Diagnosis: 1 via juarez qid prn [...] MG TABS 01/11/2007 - 01/16/2007 Provider: Cullen Blackwell DO Diagnosis: Glucotrol XL 5 MG OR [...] Albuterol Sulfate (2.5 MG/3ML) 12/03/2012 Rachna Balderas [employer] 0.083% IN [facility] Levalbuterol HCl 1.25 MG/3ML IN 09/10/2018 Harish Carbajal ASH [employer] BOILER [facility] Tigan 100 MG/ML IM SOLN 05/31/2016 Valdez Stephens MD right gluteus verona Ondansetron 4 MG OR TBDP 05/31/2016 Valdez steele MD Vital Signs Includes: Vital Signs from 02/09/2019 through 02/10/2020 Vital Name 02/10/2020 02:22P 10/10/2019 01:26P 07/24/2019 09:39A 07/21/2019 02:29P 06/09/2019 12:25P Pain Level 7 7 7 7 6 Oxygen Saturation (%) 95 96 99 98 Flow Rate (l/min) (None (Room Air)) (None (Room Air)) (None (Sara m Air)) (None (Room Air)) FiO2 (%) 21 21 21 21 Pulse Rhythm Regular Regular Regular Respiration Rate (breaths/min) 22 18 18 18 20 Weight (lb) 127 126 129 129 128 Blood Pressure Sitting L 140/70 114/60 110/60 102/72 116/72 BP Cuff Size Regular Large Regular Regular Regular Pulse Rate-Sitting (bpm) 74 68 56 72 66 Body Surface Area (m2) 1.61 1.62 1. 62 Pulse Rhythm Irregular Temp-Tympanic (F) 96.5 98 97.9 97.9 Height (in) 64 64 64 Body Mass Index (kg/m2) 21.6 22.1 2 2.0 Note: temp taken by Sergey Pinto LPN Vital Name 03/28/2019 11:20A Pain Level 7 Oxygen Saturation (%) 97 Flow Rate (l/min) (None (Room Air)) FiO2 (%) 21 Respiration Rate (breaths/min) 20 Weight (lb) 133 Blood Pressure Sitting L 112/66 BP Cuff Size Regular Pulse Rate-Sitting (bpm) 65 Body Surface Area (m2) 1.64 Temp-Tympanic (F) 98.2 Height (in) 64 Body Mass Index (kg/m2) 22.8 Results Includes: Results from 02/09/2019 through 02/10/2020 Hgb A1c In-House Labs Ordered by Harish [...] s are final unless otherwise noted. GENITAL CULTURE [facility] Ordered by Harish Mcmahan NP on 07/21/[address] [place] [address], [id number] Collected: 07/21/2019 Reported: 07/24/2019 tel:[phone] See Note Avila None Note: Run: 07/24/19 0745 INTERFACED REPORT Name: Flori Marei Age/Sex: 74/F Location: [facility] Acct: [id number] Unit: [id number] Status: REG REF Room/Bed: Re07/21/19 Disch: Att Dr: Harish Mcmahan NP Specimen #: [id number] Ordered : 07/22/19 Collected : 07/21/19 By: [...] are final unless otherwise noted. Reported Physicians [facility] Ordered by Harish Mcmahan NP on 07/21/[address] [place] [address], [id number] Collected: 07/21/2019 Reported: 07/24/2019 tel:[phone] Reported Physicians See Note None Note: Reported Physicians:Ordering: Harish Pollackending: Harish Mcmahan Reviewed on 07/25/2019; All test result s are final unless otherwise noted. VAGINOSIS (BV) TEST [facility] Ordered by Harish Mcmahan NP on 07/21/[address] [place] [address], [id number] Collected: 07/21/2019 Reported: 07/22/2019 tel:[phone] [place] BY DNA PROBE POSITIVE (NEGATIVE) [...] are final unless otherwise noted. Reported Physicians [facility] Ordered by Harish Mcmahan NP on 07/21/[address] [place] [address], [address] Collected: 07/21/2019 Reported: 07/22/2019 tel:[phone] Reported Physicians See Note None Note: Reported Physicians:Ordering: Harish Pollackending: Harish Mcmahan Reviewed on 07/22/2019; All test result s are final unless otherwise noted. URINE CULTURE [facility] Ordered by Harish Mcmahan NP on 07/21/[address], [address] Collected: 07/21/2019 Reported: 07/24/2019 tel:[phone] See Note [facility]ila None Note: Run: 07/24/19 0738 INTERFACED REPORT Name: Flori Marie Age/Sex: 74/F Location: [facility] Acct: [id number] Unit: [id number] Status: REG REF Room/Bed: Re07/21/19 Disch: Att Dr: Harish Mcmahan NP Specimen #: [id number] Ordered : 07/22/19 Collected : 07/21/19 By: [...] are final unless otherwise noted. Reported Physicians [facility] Ordered by Harish Mcmahan NP on 07/21/[address] [place] [address], [address] Collected: 07/21/2019 Reported: 07/24/2019 tel:[phone] Reported Physicians See Note None Note: Reported [...] N (Normal) Protein neg N (Normal) Specific [place] 1.005 A (Abnormal) Urobili neg N (Normal) Reviewed on 07/21/2019; All test result s are final unless otherwise noted. Hgb A1c In-House Labs Ordered by Cullen Blackwell DO on 06/09/2019 Specimen Source: Whole blood Collected: 06/09/2019 R eported: 06/09/2019 Hgb A1c 7.9 A (Abnormal) Reviewed on 06/09/2019; All test result s are final unless otherwise noted. VAGINOSIS (BV) TEST [facility] Ordered by Harish Carbajal NP on 03/28/[address] [place] [address], [id number] Collected: 03/28/2019 Reported: 03/29/2019 tel:[phone] [place] BY DNA PROBE POSITIVE (NEGATIVE) A (Abnormal) [...] are final unless otherwise noted. Reported Physicians [facility] Ordered by Harish Carbajal NP on 03/28/[address] [place], [address] Collected: 03/28/2019 Reported: 03/29/2019 tel:[phone] Reported Physicians See Note None Note: Reported [...] Procedures and Surgical/Medical History Includes: Procedures from 02/09/2019 through 02/10/2020 Procedures CPT-4 Diagnosis Performing Provider Service Location Service Date Hemoglobin; Glycated A1c 36750 Type 2 diabetes mellitus with other specified complication Harish Carbajal 02/10/2020 [facility] Visit, established patient G0467 [facility] (primary) hypertension, Type 2 diabetes mellitus without complications, Chest pain, unspecified, Epigastric pain Harish Carbajal [facility] 10/10/2019 Hemoglobin; Glycated A1c 77045 Type 2 diabetes mellitu s without complications Harish Carbajal [facility] 10/10/2019 Ekg With Interpretation and Report 74381 Chest pain, u nspecified Harish Carbajal [facility] 10/10/2019 [facility] Visit, established patient G0467 Emphysem a, unspecified, Type 2 diabetes mellitus without complications, Vitamin D deficiency, unspecified, Low back pain Harish Carbajal [facility] 07/24/2019 [facility] Visit, established patient G0467 Urinary tract infection, site not specified, Acute vaginitis Harish Mcmahan [facility] 07/21/2019 Urinalysis, by Dip Stick or [place] [address] Urinary tract infection, site not specified Harish Mcmahan [facility] 07/21/2019 [facility]/HC code for distant site telehealt h services (Synchronous telemedicine service rendered via real-time interactive audio and video telecommunication system) G2025 Peripheral vascular disease, unspecified, Chronic ischemic heart disease, unspecified, Cardiomyopathy, unspecified Cullen Blackwell DO [facility] 06/23/2019 [facility] Visit, established patient (Synchro nous telemedicine service rendered via real-time interactive audio and video telecommunication system) G0467 Peripheral vascular disease, unspecified, Chronic ischemic heart disease, unspecified, Cardiomyopathy, unspecified Cullen Culp [facility] 0 [facility] -Subsequent Annual Wellness Visit G0439 En cntr for general adult medical exam w/o abnormal findings, Type 2 diabetes mellitus with unspecified complications, Chronic ischemic heart disease, unspecified, Essential (primary) hypertension Cullen Robbi [facility] 06/09/2019 [facility] Visit, IPPE or AWV G0468 Encntr for gener al adult medical exam w/o abnormal findings, Type 2 diabetes mellitus with unspecified complications, Chronic ischemic heart disease, unspecified, Essential (primary) hypertension Cullen Robbi [facility] 06/09/2019 Hemoglobin; Glycated A1c 50977 Type 2 diabetes mellitus with unspecified complications [facility] 06/09/2019 [facility] Visit, established patient [id number] Heart fa ilure, unspecified, Chronic obstructive pulmonary disease, unspecified, Type 2 diabetes mellitus with other specified complication, Acute vaginitis Harish Carbajal NP [facility] 03/28/2019 Surgical History Last Updated History of [...] Mental Status not supported for this document type Description Oriented to time, place, and person Functional Status Functional Status not supported for [...] 1 01/11/2018 Compl ete (Reported) Patient Influenza, seasonal, injectable [...] recalls h moose Encounters Includes: Encounters from 02/09/2019 through 02/10/2020 Encounter Provider Location Date Diagnosis Chronic Disease Follow-up Harish Carbajal NP [facility] 02/10/20 20 Atrial Fibrillation and Flutter, Cardiomyopathy, Coronary Artery Disease, Diabetes Mellitus Type 2 with Complication, Emphysema, Generalized Anxiety Disorder, Hypertension (systemic), Hyperlipidemia, Nicotine Dependence, Restless Legs Syndrome Correspondence Harish Carbajal NP 10/20/2019 Referral Order Claire Carbajal NP 10/13/2019 Chronic Disease Follow-up Harish Carbajal NP [facility] 10/10/19 20 Anemia, Atrial Fibrillation and Flutter, Coronary Artery Disease, Diabetes Mellitus Type 2 with Complication, Hypertension (systemic), Emphysema, Generalized Anxiety Disorder, Hyperlipidemia, Abdominal Pain--epigastric, Chest Pain, Sinusitis, Dermatophytosis Medication Order Irena Bush NP 09/29/2019 Acute L2 Harish Carbajal NP [facility] 07/24/2019 Complex Regional Pain Syndrome Type I Upper Limb, Low Back Pain Acute L3 Harish Mcmahan [facility] 07/21/19 20 Vaginitis Acute, Microscopic Hematuria Telephone Encounter Cullen Robbi [facility] 06/23/2019 Coronary Artery Disease, Cardiomyopathy, Peripheral Vascular Disease Correspondence Cullen Robbi Blackwell DO 06/11/2019 Referral Order Cullen Blackwell DO 06/11/2019 Chart Update Claire Wheeler RN 06/09/2019 AHR Cullen Blackwell DO [facility] 06/09/2019 Ro utine History and Physical Chart Prep Cullen Robbi Blackwell DO 05/23/2019 Medication Order Harish Carbajal NP 03/31/2019 Hospital Follow-up Harish Carbajal NP [facility] 03/28/2019 Va ginitis, Diabetes Mellitus Type 2 with Complication, Congestive Heart Failure, Chronic Obstructive Pulmonary Disease [Patient Encounter] Cullen Robbi Blackwell DO 02/13/2019 Insurance Includes: Active Insurance Policies Plan Name Member ID Group # Subscriber Relationship Effective Da desirae 1 - [employer] [id number] Flori Marie Self 0 12/01/1997 - Unknown 2 - [employer] [id number] Brett Marie E 10/31/2009 - Unknown Advance Directives Includes: Current Advance Directives Directive Pat Aware Third Libertarian Effective Date Reviewed Status RHIO Yes 05/17/2012 [...] interventions. 07/13/18 Wrote another prescription for Reed villar. Quitting smoking is the best thing she [...] and Xarelto as direct ed by your manager recruiting. Stop the diltiazem if you haven't already.Follow up with the manager recruiting. Added 01/21/2014 Goal: Avoid episodes of fast [...]
--- OUTSIDE RECORDS SUMMARY | 2020-04-14 14:07 | CCD | Continuity of Care Document ---
Author Author Flori LAWSON Organization Unknown Address [address] [place] [address] [place] [address] Phone [phone] Care Team Providers Care Roofer Assistant Name Role Phone [employer] ([facility]) [facility] Problems Description No Information Available Social History Type Date Description Comments Sex Unknown Tobacco Use Start: Unknown Light tobacco smoker (10 or fewe r cigarettes/day) ETOH Use Denies alcohol use Tobacco Use Start: Unknown Patient is a current smoker, smo kes every day Smoking Status Reviewed: 02/02/20 Patient is a current smoker, smokes every day Allergies, Adverse Reactions, Alerts Active Allergies Reaction Severity Comments Date Darvon 09/16/2014 Doxycycline 09/16/2014 Neurontin 09/16/2014 Relafen 09/16/2014 Amitriptyline 09/16/2014 Lisinopril 09/16/2014 Amlodipine 09/16/2014 Fentanyl 09/16/2014 Medications Active Medications SIG Qnty Indications Ordering Provide r Date Amoxicillin/Clavulanate Potassium 875-125mg Tablets 1 twice a day x 7 days 14tabs Luis A aJvier JR., M.D. 02/02/2020 Oxycodone-Acetaminophen 2.5-325mg Tablets Unknown Budesonide 0.5mg/2ML Suspension Unknown Rapaflo 8mg Capsules last dos e 1pm Unknown Albuterol Sulfate (2 .5mg/3ML) 0.083% Nebulizer use one vial via neb every 4 hours as needed. last dose at 530 Unknown Zolpidem Tartrate ER 6.25mg Tablets ER Unknown Xarelto 20mg Tablets Unknown Vitamin B-12 2500mcg Tablets Sub Unknown Ventolin HFA 108(90Base) mcg/Act A erosol 2 puffs four times a day Unknown 0 Venlafaxine HCL 75mg Tablets take one (1) tab daily Unknown Prandin 0.5mg Tablets Unknown Polyethylene Glycol 1450 Unknown Metformin HCL 500mg Tablets 1 by mouth twice a day Unknown Melatonin 10mg Capsules Unknown Losartan Potassium 25mg Tablets 1 by mouth every day Unknown Levothroid 25mcg Tablets Unknown Lansoprazole 30mg Capsules DR Unknown Cyclobenzaprine HCL Tablets one tab my mouth 3 times daily Unknown Calcium + D3 [id number] Tablets Unknown Bisoprolol Fumarate 5mg Tablets Unknown Atorvastatin Calcium 40mg Tablets Unknown Immunizations Description No Information Available Vital Signs Date Vital Result Comment 02/02/2020 10:33am BP Systolic 140 mmHg BP Diastolic 76 mmHg Heart Rate 80 /min Respiratory Rate 16 /min Body Temperature 98.6 F Weight 133.00 lb Height 64.5 inches 5'4.50" BMI (Body Mass Index) 22.5 kg/m2 Pain Level 7 07/09/2018 2:53pm BP Systolic 137 mmHg BP Diastolic 83 mmHg Heart Rate 96 /min Respiratory Rate 16 /min O2 % BldC Oximetry 94 % Body Temperature 97.0 F Weight 142.00 lb Height 64.5 inches 5'4.50" BMI (Body Mass Index) 24.0 kg/m2 Results Description No Information Available Procedures Description No Information Available Medical Devices Description No Information Available Encounters Type Date Location Provider Dx Diagnosis Office Visit 02/02/2020 10:15a [facility] MAGO Graves J01.90 Acute sinusitis, unspecified J44.1 Chronic obstructive pulmonar y disease w (acute) exacerbation L02.611 Cutaneous abscess of right f oot L03.115 Cellulitis of right lower li mb Assessments Date Code Description Provider 02/02/2020 J01.90 Acute sinusitis, unspecified MAGO Shoemaker 02/02/2020 J44.1 Chronic obstructive pulmonary disease with (acute) exacerbation MAGO Graves 02/02/2020 L02.611 Cutaneous abscess of right foot MAGO Graves 02/02/2020 L03.115 Cellulitis of right lower limb MAGO Lord Plan of Treatment 02/02/2020 - MAGO Graves* J01.90 Acute sinusitis, unspecified* Comments:* Supportive care: Vit c, rest, push clear fluids, steam. RTC if worsening despite txt, persistent sxs or new sxs * J44.1 Chronic obstructive pulmonary disease with (acute) exacerbation* Comments:* abx covering sinus/chest and foot, urgently needs podiatry eval, made appointment for patient with physician surgeon for tomorrow 11:10 am. smoking cessation encouraged, she is not interested in stopping at this point. elevation of foot, soaks * L02.611 Cutaneous abscess of right foot * L03.115 Cellulitis of right lower limb * All * New Medication:* Amoxicillin/Clavulanate Potassium 875-125 mg - 1 twice a day x 7 days Functional Status Description No Information Available Mental Status Description No Information Available Referrals Description No Information Available
--- OUTSIDE RECORDS SUMMARY | 2020-04-14 14:07 | CCD | Continuity of Care Document ---
Author Author Flori LAWSON Organization Unknown Address [address] [place] [address] [place] [address] Phone [phone] Care Team Providers Care Lvn Lpn Name Role Phone [employer] ([facility]) AUTM [phone] Problems Description No Information Available Social History [...] day x 7 days 14tabs Luis A Javier JR., M.D. 02/02/2020 Oxycodone-Acetaminophen 2.5-325mg Tablets Unknown [...] 3 times daily Unknown Calcium + D3 [id number] Tablets Unknown Bisoprolol Fumarate 5mg Tablets Unknown [...] podiatry eval, made appointment for patient with potato seed cutter for tomorrow 11:10 am. smoking cessation encouraged, [...]
--- OUTSIDE RECORDS SUMMARY | 2020-04-14 14:09 | CCD ---
Author Author [facility] Organization [facility] Address Unknown Phone Unavailable Care Team Providers Care Jet Inspector Name Role Phone Shaben, E Jessica HAIRMASTERS MANAGER Unavailable Unavailable Shaben, E Jessica HAIRMASTERS MANAGER Unavailable Unavailable Shaben, E Jessica HAIRMASTERS MANAGER Unavailable Unavailable Shaben, E Jessica HAIRMASTERS MANAGER Unavailable Unavailable Shaben, E Jessica HAIRMASTERS MANAGER Unavailable Unavailable Shaben, E Jessica HAIRMASTERS MANAGER Unavailable Unavailable Shaben, E Jessica HAIRMASTERS MANAGER Unavailable Unavailable Shaben, E Jessica HAIRMASTERS MANAGER Unavailable Unavailable Shaben, E Jessica HAIRMASTERS MANAGER Unavailable Unavailable Shaben, E Jessica HAIRMASTERS MANAGER Unavailable Unavailable Shaben, E Jessica HAIRMASTERS MANAGER Unavailable Unavailable Shaben, E Jessica HAIRMASTERS MANAGER Unavailable Unavailable Shaben, E Jessica HAIRMASTERS MANAGER Unavailable Unavailable Shaben, E Jessica HAIRMASTERS MANAGER Unavailable Unavailable Shaben, E Jessica HAIRMASTERS MANAGER Unavailable Unavailable Shaben, E Jessica HAIRMASTERS MANAGER Unavailable Unavailable Shaben, E Jessica HAIRMASTERS MANAGER Unavailable Unavailable Shaben, E Jessica HAIRMASTERS MANAGER Unavailable Unavailable Shaben, E Jessica HAIRMASTERS MANAGER Unavailable Unavailable Shaben, E Jessica HAIRMASTERS MANAGER Unavailable Unavailable Shaben, E Jessica HAIRMASTERS MANAGER Unavailable Unavailable Shaben, E Jessica HAIRMASTERS MANAGER Unavailable Unavailable Shaben, E Jessica HAIRMASTERS MANAGER Unavailable Unavailable DREJESSICA HERNANDEZ FARM MACHINERY SET UP MECHANIC Unavailable Unavaila JESSICA Guevara FARM MACHINERY SET UP MECHANIC Unavailable Unavaila JESSICA Guevara FARM MACHINERY SET UP MECHANIC Unavailable Unavaila ble DRE-JESSICA MCMAHAN FARM MACHINERY SET UP MECHANIC Unavailable Unavaila ble DRE-MCMAHAN, JESSICA BREWER FARM MACHINERY SET UP MECHANIC Unavailable Unavaila ble DRE-MCMAHAN, JESSICA BREWER FARM MACHINERY SET UP MECHANIC Unavailable Unavaila ble DRE-MCMAHAN, JESSICA BREWER FARM MACHINERY SET UP MECHANIC Unavailable Unavaila ble DRE-MCMAHAN, JESSICA BREWER FARM MACHINERY SET UP MECHANIC Unavailable Unavaila ble DRE-MCMAHAN, JESSICA BREWER FARM MACHINERY SET UP MECHANIC Unavailable Unavaila ble DRE-MCMAHAN, JESSICA BREWER FARM MACHINERY SET UP MECHANIC Unavailable Unavaila ble DRE-MCMAHAN, JESSICA BREWER FARM MACHINERY SET UP MECHANIC Unavailable Unavaila ble DRE-MCMAHAN, JESSICA BREWER FARM MACHINERY SET UP MECHANIC Unavailable Unavaila ble DRE-MCMAHAN, JESSICA BREWER FARM MACHINERY SET UP MECHANIC Unavailable Unavaila ble DRE-MCMAHAN, JESSICA BREWER FARM MACHINERY SET UP MECHANIC Unavailable Unavaila ble DRE-MCMAHAN, JESSICA BREWER FARM MACHINERY SET UP MECHANIC Unavailable Unavaila ble DRE-MCMAHAN, JESSICA BREWER FARM MACHINERY SET UP MECHANIC Unavailable Unavaila ble DRE-MCMAHAN, JESSICA BREWER FARM MACHINERY SET UP MECHANIC Unavailable Unavaila ble DRE-MCMAHAN, JESSICA BREWER FARM MACHINERY SET UP MECHANIC Unavailable Unavaila ble DRE-MCMAHAN, JESSICA BREWER FARM MACHINERY SET UP MECHANIC Unavailable Unavaila ble DRE-MCMAHAN, JESSICA BREWER FARM MACHINERY SET UP MECHANIC Unavailable Unavaila ble DRE-MCMAHAN, JESSICA BREWER FARM MACHINERY SET UP MECHANIC Unavailable Unavaila ble DRE-MCMAHAN, JESSICA BREWER FARM MACHINERY SET UP MECHANIC Unavailable Unavaila ble DRE-MCMAHAN, JESSICA BREWER FARM MACHINERY SET UP MECHANIC Unavailable Unavaila ble DRE-MCMAHAN, JESSICA BREWER FARM MACHINERY SET UP MECHANIC Unavailable Unavaila ble DRE-MCMAHAN, JESSICA BREWER FARM MACHINERY SET UP MECHANIC Unavailable Unavaila ble DRE-MCMAHAN, JESSICA BREWER FARM MACHINERY SET UP MECHANIC Unavailable Unavaila ble DRE-MCMAHAN, JESSICA BREWER FARM MACHINERY SET UP MECHANIC Unavailable Unavaila ble DRE-MCMAHAN, JESSICA BREWER FARM MACHINERY SET UP MECHANIC Unavailable Unavaila ble DRE-MCMAHAN, JESSICA BREWER FARM MACHINERY SET UP MECHANIC Unavailable Unavaila ble DRE-MCMAHAN, JESSICA BREWER FARM MACHINERY SET UP MECHANIC Unavailable Unavaila ble DRE-MCMAHAN, JESSICA BREWER FARM MACHINERY SET UP MECHANIC Unavailable Unavaila ble DRE-MCMAHAN, JESSICA BREWER FARM MACHINERY SET UP MECHANIC Unavailable Unavaila ble DRE-MCMAHAN, JESSICA BREWER FARM MACHINERY SET UP MECHANIC Unavailable Unavaila ble DRE-MCMAHAN, JESSICA BREWER FARM MACHINERY SET UP MECHANIC Unavailable Unavaila ble DRE-MCMAHAN, JESSICA BREWER FARM MACHINERY SET UP MECHANIC Unavailable Unavaila ble DRE-MCMAHAN, JESSICA BREWER FARM MACHINERY SET UP MECHANIC Unavailable Unavaila ble DRE-MCMAHAN, JESSICA BREWER FARM MACHINERY SET UP MECHANIC Unavailable Unavaila ble DRE-MCMAHAN, JESSICA BREWER FARM MACHINERY SET UP MECHANIC Unavailable Unavaila ble DRE-MCMAHAN, JESSICA BREWER FARM MACHINERY SET UP MECHANIC Unavailable Unavaila ble DRE-MCMAHAN, JESSICA BREWER FARM MACHINERY SET UP MECHANIC Unavailable Unavaila ble DRE-MCMAHAN, JESSICA BREWER FARM MACHINERY SET UP MECHANIC Unavailable Unavaila ble DRE-MCMAHAN, JESSICA BREWER FARM MACHINERY SET UP MECHANIC Unavailable Unavaila ble DRE-MCMAHAN, JESSICA BREWER FARM MACHINERY SET UP MECHANIC Unavailable Unavaila ble DRE-MCMAHAN, JESSICA BREWER FARM MACHINERY SET UP MECHANIC Unavailable Unavaila ble DRE-MCMAHAN, JESSICA BREWER FARM MACHINERY SET UP MECHANIC Unavailable Unavaila ble DRE-MCMAHAN, JESSICA BREWER FARM MACHINERY SET UP MECHANIC Unavailable Unavaila ble Brooks, L Malina RPA Unavailable Unavailable Brooks, L Malina RPA Unavailable Unavailable Brooks, L Malina RPA Unavailable Unavailable Brooks, L Malina RPA Unavailable Unavailable Brooks, L Malina RPA Unavailable Unavailable Brooks, L Malina RPA Unavailable Unavailable Brooks, L Malina RPA Unavailable Unavailable Brooks, L Malina RPA Unavailable Unavailable Brooks, L Malina RPA Unavailable Unavailable Brooks, L Malina RPA Unavailable Unavailable Brooks, L Malina RPA Unavailable Unavailable Brooks, L Malina RPA Unavailable Unavailable Brooks, L Malina RPA Unavailable Unavailable Brooks, L Malina RPA Unavailable Unavailable Brooks, L Malina RPA Unavailable Unavailable Brooks, L Malina RPA Unavailable Unavailable Brooks, L Malina RPA Unavailable Unavailable Brooks, L Malina RPA Unavailable Unavailable Brooks, L Malina RPA Unavailable Unavailable Brooks, L Malina RPA Unavailable Unavailable Brooks, L Malina RPA Unavailable Unavailable Brooks, L Malina RPA Unavailable Unavailable Brooks, L Malina RPA Unavailable Unavailable Brooks, L Malina RPA Unavailable Unavailable Brooks, L Malina RPA Unavailable Unavailable Brooks, L Malina RPA Unavailable Unavailable Brooks, L Malina RPA Unavailable Unavailable Brooks, L Malina RPA Unavailable Unavailable Brooks, L Malina RPA Unavailable Unavailable Brooks, L Malina RPA Unavailable Unavailable Brooks, L Malina RPA Unavailable Unavailable Brooks, L Malina RPA Unavailable Unavailable Joel HECTOR, Nevin Unavailable [phone] SHABEN, J CLAIRE FARM MACHINERY SET UP MECHANIC Unavailable Unavailable SHABEN, J CLAIRE FARM MACHINERY SET UP MECHANIC Unavailable Unavailable SHABEN, J CLAIRE FARM MACHINERY SET UP MECHANIC Unavailable Unavailable SHABEN, J CLAIRE FARM MACHINERY SET UP MECHANIC Unavailable Unavailable SHABEN, J CLAIRE FARM MACHINERY SET UP MECHANIC Unavailable Unavailable SHABEN, J CLAIRE FARM MACHINERY SET UP MECHANIC Unavailable Unavailable SHABEN, J CLAIRE FARM MACHINERY SET UP MECHANIC Unavailable Unavailable SHABEN, J CLAIRE FARM MACHINERY SET UP MECHANIC Unavailable Unavailable SHABEN, J CLAIRE FARM MACHINERY SET UP MECHANIC Unavailable Unavailable SHABEN, J CLAIRE FARM MACHINERY SET UP MECHANIC Unavailable Unavailable SHABEN, J CLAIRE FARM MACHINERY SET UP MECHANIC Unavailable Unavailable SHABEN, J CLAIRE FARM MACHINERY SET UP MECHANIC Unavailable Unavailable SHABEN, J CLAIRE FARM MACHINERY SET UP MECHANIC Unavailable Unavailable SHABEN, J CLAIRE FARM MACHINERY SET UP MECHANIC Unavailable Unavailable SHABEN, J CLAIRE FARM MACHINERY SET UP MECHANIC Unavailable Unavailable SHABEN, J CLAIRE FARM MACHINERY SET UP MECHANIC Unavailable Unavailable SHABEN, J CLAIRE FARM MACHINERY SET UP MECHANIC Unavailable Unavailable SHABEN, J CLAIRE FARM MACHINERY SET UP MECHANIC Unavailable Unavailable SHABEN, J CLAIRE FARM MACHINERY SET UP MECHANIC Unavailable Unavailable SHABEN, J CLAIRE FARM MACHINERY SET UP MECHANIC Unavailable Unavailable SHABEN, J CLAIRE FARM MACHINERY SET UP MECHANIC Unavailable Unavailable SHABEN, J CLAIRE FARM MACHINERY SET UP MECHANIC Unavailable Unavailable SHABEN, J CLAIRE FARM MACHINERY SET UP MECHANIC Unavailable Unavailable SHABEN, J CLAIRE FARM MACHINERY SET UP MECHANIC Unavailable Unavailable SHABEN, J CLAIRE FARM MACHINERY SET UP MECHANIC Unavailable Unavailable SHABEN, J CLAIRE FARM MACHINERY SET UP MECHANIC Unavailable Unavailable SHABEN, J CLAIRE FARM MACHINERY SET UP MECHANIC Unavailable Unavailable SHABEN, J CLAIRE FARM MACHINERY SET UP MECHANIC Unavailable Unavailable SHABEN, J CLAIRE FARM MACHINERY SET UP MECHANIC Unavailable Unavailable SHABEN, J CLAIRE FARM MACHINERY SET UP MECHANIC Unavailable Unavailable SHABEN, J CLAIRE FARM MACHINERY SET UP MECHANIC Unavailable Unavailable SHABEN, J CLAIRE FARM MACHINERY SET UP MECHANIC Unavailable Unavailable SHABEN, J CLAIRE FARM MACHINERY SET UP MECHANIC Unavailable Unavailable SHABEN, J CLAIRE FARM MACHINERY SET UP MECHANIC Unavailable Unavailable SHABEN, J CLAIRE FARM MACHINERY SET UP MECHANIC Unavailable Unavailable SHABEN, J CLAIRE FARM MACHINERY SET UP MECHANIC Unavailable Unavailable SHABEN, J CLAIRE FARM MACHINERY SET UP MECHANIC Unavailable Unavailable SHABEN, J CLAIRE FARM MACHINERY SET UP MECHANIC Unavailable Unavailable SHABEN, J CLAIRE FARM MACHINERY SET UP MECHANIC Unavailable Unavailable SHABEN, J CLAIRE FARM MACHINERY SET UP MECHANIC Unavailable Unavailable SHABEN, J CLAIRE FARM MACHINERY SET UP MECHANIC Unavailable Unavailable SHABEN, J CLAIRE FARM MACHINERY SET UP MECHANIC Unavailable Unavailable SHABEN, J CLAIRE FARM MACHINERY SET UP MECHANIC Unavailable Unavailable SHABEN, J CLAIRE FARM MACHINERY SET UP MECHANIC Unavailable Unavailable SHABEN, J CLAIRE FARM MACHINERY SET UP MECHANIC Unavailable Unavailable SHABEN, J CLAIRE FARM MACHINERY SET UP MECHANIC Unavailable Unavailable SHABEN, J CLAIRE FARM MACHINERY SET UP MECHANIC Unavailable Unavailable SHABEN, J CLAIRE FARM MACHINERY SET UP MECHANIC Unavailable Unavailable SHABEN, J CLAIRE FARM MACHINERY SET UP MECHANIC Unavailable Unavailable SHABEN, J CLAIRE FARM MACHINERY SET UP MECHANIC Unavailable Unavailable SHABEN, J CLAIRE FARM MACHINERY SET UP MECHANIC Unavailable Unavailable SHABEN, J CLAIRE FARM MACHINERY SET UP MECHANIC Unavailable Unavailable SHABEN, J CLAIRE FARM MACHINERY SET UP MECHANIC Unavailable Unavailable SHABEN, J CLAIRE FARM MACHINERY SET UP MECHANIC Unavailable Unavailable SHABEN, J CLAIRE FARM MACHINERY SET UP MECHANIC Unavailable Unavailable SHABEN, J CLAIRE FARM MACHINERY SET UP MECHANIC Unavailable Unavailable SHABEN, J CLAIRE FARM MACHINERY SET UP MECHANIC Unavailable Unavailable SHABEN, J CLAIRE FARM MACHINERY SET UP MECHANIC Unavailable Unavailable SHABEN, J CLAIRE FARM MACHINERY SET UP MECHANIC Unavailable Unavailable SHABEN, J CLAIRE FARM MACHINERY SET UP MECHANIC Unavailable Unavailable SHABEN, J CLAIRE FARM MACHINERY SET UP MECHANIC Unavailable Unavailable SHABEN, J CLAIRE FARM MACHINERY SET UP MECHANIC Unavailable Unavailable SHABEN, J CLAIRE FARM MACHINERY SET UP MECHANIC Unavailable Unavailable SHABEN, J CLAIRE FARM MACHINERY SET UP MECHANIC Unavailable Unavailable SHABEN, J CLAIRE FARM MACHINERY SET UP MECHANIC Unavailable Unavailable SHABEN, J CLAIRE FARM MACHINERY SET UP MECHANIC Unavailable Unavailable SHABEN, J CLAIRE FARM MACHINERY SET UP MECHANIC Unavailable Unavailable Carguello J Cesia DO Unavailable Unavailable Carguello J Cesia DO Unavailable Unavailable Carguello J Cesia DO Unavailable Unavailable Carguello J Cesia DO Unavailable Unavailable Carguello J Cesia DO Unavailable Unavailable Carguello J Cesia DO Unavailable Unavailable CarguelloRobbi Cesia DO Unavailable Unavailable Carguello J Cesia DO Unavailable Unavailable CarguelloRobbi Cesia DO Unavailable Unavailable Carguello J Cesia DO Unavailable Unavailable CarguelloRobbi Cesia DO Unavailable Unavailable CarguelloRobbi Cesia DO Unavailable Unavailable CarguelloRobbi Cesia DO Unavailable Unavailable CarguelloRobbi Cesia DO Unavailable Unavailable CarguelloRobbi Cesia DO Unavailable Unavailable Carguello J Cesia DO Unavailable Unavailable CarguelloRobbi Cesia DO Unavailable Unavailable CarguelloRobbi Cesia DO Unavailable Unavailable CarguelloRobbi Cesia DO Unavailable Unavailable Carguello J Cesia DO Unavailable Unavailable CarguelloRobbi Cesia DO Unavailable Unavailable CarguelloRobbi Cesia DO Unavailable Unavailable CarguelloRobbi Cesia DO Unavailable Unavailable CarguelloRobbi Cesia DO Unavailable Unavailable CarguelloRobbi Cesia DO Unavailable Unavailable CarguelloRobbi Cesia DO Unavailable Unavailable Carguello J Cesia DO Unavailable Unavailable CarguelloRobbi Cesia DO Unavailable Unavailable Carguello J Cesia DO Unavailable Unavailable Carguello J Cesia DO Unavailable Unavailable Carguello J Cesia DO Unavailable Unavailable CarguelloRobbi Cesia DO Unavailable Unavailable Carguello J Cesia DO Unavailable Unavailable Carguello J Cesia DO Unavailable Unavailable CarguelloRobbi Cesia DO Unavailable Unavailable Carguello J Cesia DO Unavailable Unavailable CarguelloRobbi Cesia DO Unavailable Unavailable CarguelloRobbi Cesia DO Unavailable Unavailable CarguelloRobbi Cesia DO Unavailable Unavailable CarguelloRobbi Cesia DO Unavailable Unavailable Carguello J Cesia DO Unavailable Unavailable Carguello J Cesia DO Unavailable Unavailable Carguello J Cesia DO Unavailable Unavailable Carguello J Cesia DO Unavailable Unavailable Carguello J Cesia DO Unavailable Unavailable Carguello J Cesia DO Unavailable Unavailable Carguello J Cesia DO Unavailable Unavailable Carguello J Cesia DO Unavailable Unavailable Carguello J Cesia DO Unavailable Unavailable Carguello J Cesia DO Unavailable Unavailable Carguello J Cesia DO Unavailable Unavailable Carguello J Cesia DO Unavailable Unavailable Carguello J Cesia DO Unavailable Unavailable Carguello J Cesia DO Unavailable Unavailable Carguello J Cesia DO Unavailable Unavailable Carguello J Cesia DO Unavailable Unavailable Carguello J Cesia DO Unavailable Unavailable Carguello J Ecsia DO Unavailable Unavailable Carguello J Cesia DO Unavailable Unavailable Carguello J Cesia DO Unavailable Unavailable Carguello J Cesia DO Unavailable Unavailable Carguello J Cesia DO Unavailable Unavailable CarguelloRobbi Cesia DO Unavailable Unavailable Carguello J Cesia DO Unavailable Unavailable Carguello J Cesia DO Unavailable Unavailable Carguello J Cesia DO Unavailable Unavailable Carguello J Cesia DO Unavailable Unavailable Carguello J Cesia DO Unavailable Unavailable Carguello J Cesia DO Unavailable Unavailable Carguello J Cesia DO Unavailable Unavailable Carguello J Cesia DO Unavailable Unavailable Carguello J Cesia DO Unavailable Unavailable Carguello J Cesia DO Unavailable Unavailable Carguello J Cesia DO Unavailable Unavailable Carguello J Cesia DO Unavailable Unavailable Carguello J Cesia DO Unavailable Unavailable Carguello J Cesia DO Unavailable Unavailable CarguelloRobbi Cesia DO Unavailable Unavailable Carguello J Cesia DO Unavailable Unavailable Carguello J Cesia DO Unavailable Unavailable Carguello J Cesia DO Unavailable Unavailable Carguello J Cesia DO Unavailable Unavailable Carguello J Cesia DO Unavailable Unavailable RADHA, JESSICA BREWER FARM MACHINERY SET UP MECHANIC Unavailable Unavaila ble RADHA, JESSICA BREWER FARM MACHINERY SET UP MECHANIC Unavailable Unavaila ble RADHA, JESSICA BREWER FARM MACHINERY SET UP MECHANIC Unavailable Unavaila ble DRE-KOJO, JESSICA BREWER FARM MACHINERY SET UP MECHANIC Unavailable Unavaila ble DRE-MCMAHAN, JESSICA BREWER FARM MACHINERY SET UP MECHANIC Unavailable Unavaila ble DRE-MCMAHAN, JESSICA BREWER FARM MACHINERY SET UP MECHANIC Unavailable Unavaila ble DRE-MCMAHAN, JESSICA BREWER FARM MACHINERY SET UP MECHANIC Unavailable Unavaila ble DRE-MCMAHAN, JESSICA RBEWER FARM MACHINERY SET UP MECHANIC Unavailable Unavaila ble DRE-MCMAHAN, JESSICA BREWER FARM MACHINERY SET UP MECHANIC Unavailable Unavaila ble DRE-MCMAHAN, JESSICA BREWER FARM MACHINERY SET UP MECHANIC Unavailable Unavaila ble DRE-MCMAHAN, JESSICA BREWER FARM MACHINERY SET UP MECHANIC Unavailable Unavaila ble DRE-MCMAHAN, JESSICA BREWER FARM MACHINERY SET UP MECHANIC Unavailable Unavaila ble DRE-MCMAHAN, JESSICA BREWER FARM MACHINERY SET UP MECHANIC Unavailable Unavaila ble DRE-MCMAHAN, JESSICA BREWER FARM MACHINERY SET UP MECHANIC Unavailable Unavaila ble DRE-MCMAHAN, JESSICA BREWER FARM MACHINERY SET UP MECHANIC Unavailable Unavaila ble DRE-MCMAHAN, JESSICA BREWER FARM MACHINERY SET UP MECHANIC Unavailable Unavaila ble DRE-MCMAHAN, JESSICA BREWER FARM MACHINERY SET UP MECHANIC Unavailable Unavaila ble DRE-MCMAHAN, JESSICA BREWER FARM MACHINERY SET UP MECHANIC Unavailable Unavaila ble DRE-MCMAHAN, JESSICA BREWER FARM MACHINERY SET UP MECHANIC Unavailable Unavaila ble DRE-MCMAHAN, JESSICA BREWER FARM MACHINERY SET UP MECHANIC Unavailable Unavaila ble DRE-MCMAHAN, JESSICA BREWER FARM MACHINERY SET UP MECHANIC Unavailable Unavaila ble DRE-MCMAHAN, JESSICA BREWER FARM MACHINERY SET UP MECHANIC Unavailable Unavaila ble DRE-MCMAHAN, JESSICA BREWER FARM MACHINERY SET UP MECHANIC Unavailable Unavaila ble DRE-MCMAHAN, JESSICA BREWER FARM MACHINERY SET UP MECHANIC Unavailable Unavaila ble DRE-MCMAHAN, JESSICA BREWER FARM MACHINERY SET UP MECHANIC Unavailable Unavaila ble DRE-MCMAHAN, JESSICA BREWER FARM MACHINERY SET UP MECHANIC Unavailable Unavaila ble DRE-MCMAHAN, JESSICA BREWER FARM MACHINERY SET UP MECHANIC Unavailable Unavaila ble DRE-MCMAHAN, JESSICA BREWER FARM MACHINERY SET UP MECHANIC Unavailable Unavaila ble DRE-MCMAHAN, JESSICA BREWER FARM MACHINERY SET UP MECHANIC Unavailable Unavaila ble DRE-MCMAHAN, JESSICA BREWER FARM MACHINERY SET UP MECHANIC Unavailable Unavaila ble DRE-MCMAHAN, JESSICA BREWER FARM MACHINERY SET UP MECHANIC Unavailable Unavaila ble DRE-MCMAHAN, JESSICA BREWER FARM MACHINERY SET UP MECHANIC Unavailable Unavaila ble DRE-MCMAHAN, JESSICA BREWER FARM MACHINERY SET UP MECHANIC Unavailable Unavaila ble DRE-MCMAHAN, JESSICA BREWER FARM MACHINERY SET UP MECHANIC Unavailable Unavaila ble DRE-MCMAHAN, JESSICA BREWER FARM MACHINERY SET UP MECHANIC Unavailable Unavaila ble DRE-MCMAHAN, JESSICA BREWER FARM MACHINERY SET UP MECHANIC Unavailable Unavaila ble DRE-MCMAHAN, JESSICA BREWER FARM MACHINERY SET UP MECHANIC Unavailable Unavaila ble DRE-MCMAHAN, GERMÁN FARM MACHINERY SET UP MECHANIC Unavailable Unavaila ble DRE-MCMAHAN, GERMÁN FARM MACHINERY SET UP MECHANIC Unavailable Unavaila ble DRE-MCMAHAN, GERMÁN FARM MACHINERY SET UP MECHANIC Unavailable Unavaila ble DRE-MCMAHAN, GERMÁN FARM MACHINERY SET UP MECHANIC Unavailable Unavaila ble DRE-MCMAHAN, GERMÁN FARM MACHINERY SET UP MECHANIC Unavailable Unavaila ble DRE-MCMAHAN, GERMÁN FARM MACHINERY SET UP MECHANIC Unavailable Unavaila ble DRE-MCMAHAN, GERMÁN FARM MACHINERY SET UP MECHANIC Unavailable Unavaila ble DRE-MCMAHAN, GERMÁN FARM MACHINERY SET UP MECHANIC Unavailable Unavaila ble DRE-MCMAHAN, GERMÁN FARM MACHINERY SET UP MECHANIC Unavailable Unavaila Jorge Alberto Khalil MD Unavailable Unavailable Jorge Alberto Daniels MD Unavailable Unavailable Jorge Alberto Daniels MD Unavailable Unavailable Jorge Alberto Daniels MD Unavailable Unavailable Jorge Alberto Daniels MD Unavailable Unavailable Jorge Alberto Daniels MD Unavailable Unavailable Jorge Alberto Daniels MD Unavailable Unavailable Jorge Alberto Daniels MD Unavailable Unavailable Jorge Alberto Daniels MD Unavailable Unavailable Jorge Alberto Daniels MD Unavailable Unavailable Jorge Alberto Daniels MD Unavailable Unavailable Jorge Alberto Daniels MD Unavailable Unavailable Jorge Alberto Daniels MD Unavailable Unavailable Jorge Alberto Daniels MD Unavailable Unavailable Jorge Alberto Daniels MD Unavailable Unavailable Jorge Alberto Daniels MD Unavailable Unavailable Jorge Alberto Daniels MD Unavailable Unavailable Jorge Albetro Daniels MD Unavailable Unavailable Jorge Alberto Daniels MD Unavailable Unavailable Jorge Alberto Daniels MD Unavailable Unavailable Jorge Alberto Daniels MD Unavailable Unavailable Jorge Alberto Daniels MD Unavailable Unavailable Jorge Alberto Daniels MD Unavailable Unavailable Jorge Alberto Daniels MD Unavailable Unavailable Jorge Alberto Daniels MD Unavailable Unavailable Jorge Alberto Daniels MD Unavailable Unavailable Jorge Alberto Daniels MD Unavailable Unavailable Jorge Alberto Daniels MD Unavailable Unavailable Jorge Alberto Daniels MD Unavailable Unavailable Jorge Alberto Daniels MD Unavailable Unavailable Jorge Alberto Daniels MD Unavailable Unavailable Jorge Alberto Daniels MD Unavailable Unavailable Jorge Alberto Daniels MD Unavailable Unavailable Jorge Alberto Daniels MD Unavailable Unavailable Jorge Alberto Daniels MD Unavailable Unavailable Jorge Alberto Daniels MD Unavailable Unavailable Jorge Alberto Daniels MD Unavailable Unavailable Jorge Alberto Daniels MD Unavailable Unavailable Jorge Alberto Daniels MD Unavailable Unavailable Jorge Alberto Daniels MD Unavailable Unavailable Jorge Alberto Daniels MD Unavailable Unavailable Jorge Alberto Daniels MD Unavailable Unavailable Jorge Alberto Daniels MD Unavailable Unavailable Jorge Alberto Daniels MD Unavailable Unavailable Jorge Alberto Daniels MD Unavailable Unavailable Jorge Alberto Daniels MD Unavailable Unavailable Jorge Alberto Daniels MD Unavailable Unavailable Jorge Alberto Daniels MD Unavailable Unavailable Jorge Alberto Daniels MD Unavailable Unavailable Jorge Alberto Daniels MD Unavailable Unavailable Granite, V FELIPE PA-C Unavailable Unavailable Granite, V FELIPE PA-C Unavailable Unavailable Adriana, V FELIPE PA-C Unavailable Unavailable Granite, V FELIPE PA-C Unavailable Unavailable Granite, V FELIPE PA-C Unavailable Unavailable Granite, V FELIPE PA-C Unavailable Unavailable Kyra Carter MD Unavailable Unavailable Kyra Carter MD Unavailable Unavailable Kyra Carter MD Unavailable Unavailable Kyra Carter MD Unavailable Unavailable Kyra Carter MD Unavailable Unavailable Kyra Carter MD Unavailable Unavailable Kyra Carter MD Unavailable Unavailable Kyra Carter MD Unavailable Unavailable Kyra Carter MD Unavailable Unavailable Kyra Carter MD Unavailable Unavailable Kyra Carter MD Unavailable Unavailable Kyra Carter MD Unavailable Unavailable Kyra Carter MD Unavailable Unavailable Kyra Carter MD Unavailable Unavailable Kyra Carter MD Unavailable Unavailable Kyra Carter MD Unavailable Unavailable Kyra Carter MD Unavailable Unavailable Kyra Carter MD Unavailable Unavailable Kyra Carter MD Unavailable Unavailable Kyra Carter MD Unavailable Unavailable Kyra Carter MD Unavailable Unavailable Kyra Carter MD Unavailable Unavailable Kyra Carter MD Unavailable Unavailable Kyra Carter MD Unavailable Unavailable Kyra Carter MD Unavailable Unavailable Kyra Carter MD Unavailable Unavailable Kyra Carter MD Unavailable Unavailable Kyra Carter MD Unavailable Unavailable Kyra Carter MD Unavailable Unavailable Kyra Carter MD Unavailable Unavailable Kyra Carter MD Unavailable Unavailable Kyra Carter MD Unavailable Unavailable Kyra Carter MD Unavailable Unavailable Kyra Carter MD Unavailable Unavailable Kyra Carter MD Unavailable Unavailable Kyra Carter MD Unavailable Unavailable Kyra Carter MD Unavailable Unavailable Kyra Carter MD Unavailable Unavailable Kyra Carter MD Unavailable Unavailable Kyra Carter MD Unavailable Unavailable Kyra Carter MD Unavailable Unavailable Kyra Carter MD Unavailable Unavailable Kyra Carter MD Unavailable Unavailable Kyra Carter MD Unavailable Unavailable Kyra Carter MD Unavailable Unavailable Kyra Carter MD Unavailable Unavailable Kyra Carter MD Unavailable Unavailable SleKyra barber MD Unavailable Unavailable SleKyra barber MD Unavailable Unavailable SleKyra barber MD Unavailable Unavailable SleKyra barber MD Unavailable Unavailable SleKyra barber MD Unavailable Unavailable SleKyra barber MD Unavailable Unavailable SleKyra barber MD Unavailable Unavailable SleKyra barber MD Unavailable Unavailable SleKyra barber MD Unavailable Unavailable SlezKyra finn MD Unavailable Unavailable Coyle, L Paula PA Unavailable Unavailable Coyle, L Paula PA Unavailable Unavailable Coyle, L Paula PA Unavailable Unavailable Coyle, L Paula PA Unavailable Unavailable Coyle, L Paula PA Unavailable Unavailable Coyle, L Paula PA Unavailable Unavailable Coyle, L Paula PA Unavailable Unavailable Coyle, L Paula PA Unavailable Unavailable Coyle, L Paula PA Unavailable Unavailable Coyle, L Paula PA Unavailable Unavailable Coyle, L Paula PA Unavailable Unavailable Coyle, L Paula PA Unavailable Unavailable Coyle, L Paula PA Unavailable Unavailable Coyle, L Paula PA Unavailable Unavailable Coyle, L Paula PA Unavailable Unavailable Coyle, L Paula PA Unavailable Unavailable Coyle, L Paula PA Unavailable Unavailable Coyle, L Paula PA Unavailable Unavailable Coyle, L Paula PA Unavailable Unavailable Coyle, L Paula PA Unavailable Unavailable Coyle, L Paula PA Unavailable Unavailable Coyle, L Paula PA Unavailable Unavailable Coyle, L Paula PA Unavailable Unavailable Coyle, L Paula PA Unavailable Unavailable Coyle, L Paula PA Unavailable Unavailable Coyle, L Paula PA Unavailable Unavailable Coyle, L Paula PA Unavailable Unavailable Coyle, L Paula PA Unavailable Unavailable Coyle, L Paula PA Unavailable Unavailable Coyle, L Paula PA Unavailable Unavailable Coyle, L Paula PA Unavailable Unavailable Coyle, L Paula PA Unavailable Unavailable Coyle, L Paula PA Unavailable Unavailable Coyle, L Paula PA Unavailable Unavailable Coyle, L Paula PA Unavailable Unavailable Coyle, L Paula PA Unavailable Unavailable Edmundo, K Misty FARM MACHINERY SET UP MECHANIC Unavailable Unavailable Edmundo, K Misty FARM MACHINERY SET UP MECHANIC Unavailable Unavailable Edmundo, K Misty FARM MACHINERY SET UP MECHANIC Unavailable Unavailable Edmundo, K Misty FARM MACHINERY SET UP MECHANIC Unavailable Unavailable Edmundo, K Misty FARM MACHINERY SET UP MECHANIC Unavailable Unavailable Edmundo, K Misty FARM MACHINERY SET UP MECHANIC Unavailable Unavailable Edmundo, K Misty FARM MACHINERY SET UP MECHANIC Unavailable Unavailable Edmundo, K Misty FARM MACHINERY SET UP MECHANIC Unavailable Unavailable Edmundo, K Misty FARM MACHINERY SET UP MECHANIC Unavailable Unavailable Edmundo, K Misty FARM MACHINERY SET UP MECHANIC Unavailable Unavailable Edmundo, K Misty FARM MACHINERY SET UP MECHANIC Unavailable Unavailable Edmundo, K Misty FARM MACHINERY SET UP MECHANIC Unavailable Unavailable Edmundo, K Misty FARM MACHINERY SET UP MECHANIC Unavailable Unavailable Edmundo, K Misty FARM MACHINERY SET UP MECHANIC Unavailable Unavailable Edmundo, K Misty FARM MACHINERY SET UP MECHANIC Unavailable Unavailable Edmundo, K Misty FARM MACHINERY SET UP MECHANIC Unavailable Unavailable Edmundo, K Misty FARM MACHINERY SET UP MECHANIC Unavailable Unavailable Edmundo, K Misty FARM MACHINERY SET UP MECHANIC Unavailable Unavailable Edmundo, K Misty FARM MACHINERY SET UP MECHANIC Unavailable Unavailable Edmundo, K Misty FARM MACHINERY SET UP MECHANIC Unavailable Unavailable Edmundo, K Misty FARM MACHINERY SET UP MECHANIC Unavailable Unavailable Edmundo, K Misty FARM MACHINERY SET UP MECHANIC Unavailable Unavailable Edmundo, K Misty FARM MACHINERY SET UP MECHANIC Unavailable Unavailable Edmundo, K Misty FARM MACHINERY SET UP MECHANIC Unavailable Unavailable Edmundo, K Misty FARM MACHINERY SET UP MECHANIC Unavailable Unavailable Edmundo, K Misty FARM MACHINERY SET UP MECHANIC Unavailable Unavailable Edmundo, K Misty FARM MACHINERY SET UP MECHANIC Unavailable Unavailable Edmundo, K Misty FARM MACHINERY SET UP MECHANIC Unavailable Unavailable Edmundo, K Misty FARM MACHINERY SET UP MECHANIC Unavailable Unavailable Edmundo, K Misty FARM MACHINERY SET UP MECHANIC Unavailable Unavailable Edmundo, K Misty FARM MACHINERY SET UP MECHANIC Unavailable Unavailable Edmundo, K Misty FARM MACHINERY SET UP MECHANIC Unavailable Unavailable Edmundo, K Misty FARM MACHINERY SET UP MECHANIC Unavailable Unavailable Edmundo, K Misty FARM MACHINERY SET UP MECHANIC Unavailable Unavailable KRUNAL Wheeler, Claire Unavailable Ely, Angie Yo PA Unavailable Unavailable Ely, Angie Sanaz PA Unavailable Unavailable Ely, Angie Sanaz PA Unavailable Unavailable Ely, Angie Sanaz PA Unavailable Unavailable Ely, Angie Sanaz PA Unavailable Unavailable Ely, Angie Sanaz PA Unavailable Unavailable Ely, Angie Sanaz PA Unavailable Unavailable Ely, Angie Sanaz PA Unavailable Unavailable Ely, Angie Sanaz PA Unavailable Unavailable Ely, Angie Sanaz PA Unavailable Unavailable Jorge Alberto Daniels MD Unavailable Unavailable Jorge Alberto Daniels MD Unavailable Unavailable Jorge Alberto Daniels MD Unavailable Unavailable Jorge Alberto Daniels MD Unavailable Unavailable Jorge Alberto Daniels MD Unavailable Unavailable Jorge Alberto Daniels MD Unavailable Unavailable Jorge Alberto Daniels MD Unavailable Unavailable Jorge Alberto Daniels MD Unavailable Unavailable Jorge Alberto Daniels MD Unavailable Unavailable Jorge Alberto Daniels MD Unavailable Unavailable Jorge Alberto Daniels MD Unavailable Unavailable Jorge Alberto Daniels MD Unavailable Unavailable Jorge Alberto Daniels MD Unavailable Unavailable Jorge Alberto Daniels MD Unavailable Unavailable Jorge Alberto Daniels MD Unavailable Unavailable Jorge Alberto Daniels MD Unavailable Unavailable Jorge Alberto Daniels MD Unavailable Unavailable Daniels, Jorge Alberto Canchola MD Unavailable Unavailable Jeremiah, Jorge Alberto Canchola MD Unavailable Unavailable Jeremiah, Jorge Alberto Canchola MD Unavailable Unavailable Jeremiah, Jorge Alberto Canchola MD Unavailable Unavailable Jeremiah, Jorge Alberto Canchola MD Unavailable Unavailable Daniels, Jorge Alberto Canchola MD Unavailable Unavailable Daniels, Jorge Alberto Canchola MD Unavailable Unavailable Jeremiah, Jorge Alberto Canchola MD Unavailable Unavailable Jeremiah, Jorge Alberto Canchola MD Unavailable Unavailable Jeremiah, Jorge Alberto Canchola MD Unavailable Unavailable Jeremiah, Jorge Alberto Canchola MD Unavailable Unavailable Jeremiah, Jorge Alberto Canchola MD Unavailable Unavailable Jeremiah, Jorge Alberto Canchola MD Unavailable Unavailable Jeremiah, Jorge Alberto Canchola MD Unavailable Unavailable Jeremiah, Jorge Alberto Canchola MD Unavailable Unavailable Daniels, Jorge Alberto Canchola MD Unavailable Unavailable Daniels, Jorge Alberto Canchola MD Unavailable Unavailable Jeremiah, Jorge Alberto Canchola MD Unavailable Unavailable Jeremiah, Jorge Alberto Canchola MD Unavailable Unavailable Jeremiah, Jorge Alberto Canchola MD Unavailable Unavailable Jeremiah, Jorge Alberto Canchola MD Unavailable Unavailable Jeremiah, Jorge Alberto Canchola MD Unavailable Unavailable Jeremiah, Jorge Alberto Canchola MD Unavailable Unavailable Daniels, Jorge Alberto Canchola MD Unavailable Unavailable Jeremiah, Jorge Alberto Canchola MD Unavailable Unavailable Jeremiah, Jorge Alberto Canchola MD Unavailable Unavailable Jeremiah, Jorge Alberto Canchola MD Unavailable Unavailable Jeremiah, Jorge Alberto Canchola MD Unavailable Unavailable Jeremiah, Jorge Alberto Canchola MD Unavailable Unavailable Jeremiah, Jorge Alberto Canchola MD Unavailable Unavailable Jeremiah, Jorge Alberto Canchola MD Unavailable Unavailable Jeremiah, Jorge Alberto Canchola MD Unavailable Unavailable Jeremiah, Jorge Alberto Canchola MD Unavailable Unavailable Eleazar, I Irena FARM MACHINERY SET UP MECHANIC Unavailable Unavailable Eleazar, I Irena FARM MACHINERY SET UP MECHANIC Unavailable Unavailable Eleazar, I Irena FARM MACHINERY SET UP MECHANIC Unavailable Unavailable Eleazar, I Irena FARM MACHINERY SET UP MECHANIC Unavailable Unavailable Eleazar, I Irena FARM MACHINERY SET UP MECHANIC Unavailable Unavailable Eleazar, I Irena FARM MACHINERY SET UP MECHANIC Unavailable Unavailable Eleazar, I Irena FARM MACHINERY SET UP MECHANIC Unavailable Unavailable Eleazar, I Irena FARM MACHINERY SET UP MECHANIC Unavailable Unavailable Eleazar, I Irena FARM MACHINERY SET UP MECHANIC Unavailable Unavailable Eleazar, I Irena FARM MACHINERY SET UP MECHANIC Unavailable Unavailable Eleazar, I Irena FARM MACHINERY SET UP MECHANIC Unavailable Unavailable Eleazar, I Irena FARM MACHINERY SET UP MECHANIC Unavailable Unavailable Eleazar, I Irena FARM MACHINERY SET UP MECHANIC Unavailable Unavailable Eleazar, I Irena FARM MACHINERY SET UP MECHANIC Unavailable Unavailable Eleazar, I Irena FARM MACHINERY SET UP MECHANIC Unavailable Unavailable Eleazar, I Irena FARM MACHINERY SET UP MECHANIC Unavailable Unavailable Eleazar, I Irena FARM MACHINERY SET UP MECHANIC Unavailable Unavailable Eleazar, I Irena FARM MACHINERY SET UP MECHANIC Unavailable Unavailable Eleazar, I Irena FARM MACHINERY SET UP MECHANIC Unavailable Unavailable Eleazar, I Irena FARM MACHINERY SET UP MECHANIC Unavailable Unavailable Eleazar, I Irena FARM MACHINERY SET UP MECHANIC Unavailable Unavailable Eleazar, I Irena FARM MACHINERY SET UP MECHANIC Unavailable Unavailable Eleazar, I Irena FARM MACHINERY SET UP MECHANIC Unavailable Unavailable Eleazar, I Irena FARM MACHINERY SET UP MECHANIC Unavailable Unavailable Eleazar, I Irena FARM MACHINERY SET UP MECHANIC Unavailable Unavailable Eleazar, I Irena FARM MACHINERY SET UP MECHANIC Unavailable Unavailable Eleazar, I Irena FARM MACHINERY SET UP MECHANIC Unavailable Unavailable Eleazar, I Irena FARM MACHINERY SET UP MECHANIC Unavailable Unavailable Eleazar, I Irena FARM MACHINERY SET UP MECHANIC Unavailable Unavailable Eleazar, I Irena FARM MACHINERY SET UP MECHANIC Unavailable Unavailable Eleazar, I Irena FARM MACHINERY SET UP MECHANIC Unavailable Unavailable Eleazar, I Irena FARM MACHINERY SET UP MECHANIC Unavailable Unavailable Eleazar, I Irena FARM MACHINERY SET UP MECHANIC Unavailable Unavailable Eleazar, I Irena FARM MACHINERY SET UP MECHANIC Unavailable Unavailable Eleazar, I Irena FARM MACHINERY SET UP MECHANIC Unavailable Unavailable Eleazar, I Irena FARM MACHINERY SET UP MECHANIC Unavailable Unavailable Eleazar, I Irena FARM MACHINERY SET UP MECHANIC Unavailable Unavailable Eleazar, I Irena FARM MACHINERY SET UP MECHANIC Unavailable Unavailable Eleazar, I Irena FARM MACHINERY SET UP MECHANIC Unavailable Unavailable Eleazar, I Irena FARM MACHINERY SET UP MECHANIC Unavailable Unavailable Eleazar, I Irena FARM MACHINERY SET UP MECHANIC Unavailable Unavailable Eleazar, I Irena FARM MACHINERY SET UP MECHANIC Unavailable Unavailable Eleazar, I Irena FARM MACHINERY SET UP MECHANIC Unavailable Unavailable Eleazar, I Irena FARM MACHINERY SET UP MECHANIC Unavailable Unavailable Eleazar, I Irena FARM MACHINERY SET UP MECHANIC Unavailable Unavailable Eleazar, I Irena FARM MACHINERY SET UP MECHANIC Unavailable Unavailable Eleazar, I Irena FARM MACHINERY SET UP MECHANIC Unavailable Unavailable Eleazar, I Irena FARM MACHINERY SET UP MECHANIC Unavailable Unavailable Eleazar, I Irena FARM MACHINERY SET UP MECHANIC Unavailable Unavailable Eleazar, I Irena FARM MACHINERY SET UP MECHANIC Unavailable Unavailable Eleazar, I Irena FARM MACHINERY SET UP MECHANIC Unavailable Unavailable Eleazar, I Irena FARM MACHINERY SET UP MECHANIC Unavailable Unavailable Eleazar, I Irena FARM MACHINERY SET UP MECHANIC Unavailable Unavailable Eleazar, I Irena FARM MACHINERY SET UP MECHANIC Unavailable Unavailable Eleazar, I Irena FARM MACHINERY SET UP MECHANIC Unavailable Unavailable Eleazar, I Irena FARM MACHINERY SET UP MECHANIC Unavailable Unavailable Eleazar, I Irena FARM MACHINERY SET UP MECHANIC Unavailable Unavailable Eleazar, I Irena FARM MACHINERY SET UP MECHANIC Unavailable Unavailable Eleazar, I Irena FARM MACHINERY SET UP MECHANIC Unavailable Unavailable Eleazar, I Irena FARM MACHINERY SET UP MECHANIC Unavailable Unavailable Eleazar, I Irena FARM MACHINERY SET UP MECHANIC Unavailable Unavailable Eleazar, I Irena FARM MACHINERY SET UP MECHANIC Unavailable Unavailable Eleazar, I Irena FARM MACHINERY SET UP MECHANIC Unavailable Unavailable Re-disclosure Warning The records that you are about to access may contain information from federally-assisted alcohol or drug abuse programs. If such information is present, then the following federally mandated warning applies: This information has been disclosed to you from records protected by federal confidentiality rules (42 CFR part 2). The federal rules prohibit you from making any further disclosure of this information unless further disclosure is expressly permitted by the written consent of the person to whom it pertains or as otherwise permitted by 42 CFR part 2. A general authorization for the release of medical or other information is NOT sufficient for this purpose. The Federal rules restrict any use of the information to criminally investigate or prosecute any alcohol or drug abuse patient.The records that you are about to access may contain highly sensitive health information, the redisclosure of which is protected by Article 27-F of the [facility] Public Health law. If you continue you may have access to information: Regarding HIV / AIDS; Provided by facilities licensed or operated by the [facility] Office of Mental Health; or Provided by the [facility] Office for People With Developmental Disabilities. If such information is present, then the following [facility] mandated warning applies: This information has been disclosed to you from confidential records which are protected by state law. State law prohibits you from making any further disclosure of this information without the specific written consent of the person to whom it pertains, or as otherwise permitted by law. Any unauthorized further disclosure in violation of state law may result in a fine or chcf sentence or both. A general authorization for the release of medical or other information is NOT sufficient authorization for further disc losure. 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 -NO packet given Pt Bill of Rights, Priv Prac, Ad Dir completed packet given Pt Bill of Rights, Priv Prac, Ad Dir [facility] ([facility]) Note: Pt declined AD packet Ebola Screening Performed completed Ebol a Screening Performed BOB ([facility]) Note: Within the last month, have you tr aveled outside of the [place]? -NO Ebola Screening Performed completed Ebol a Screening Performed BOB ([facility]) Note: Within the last month, have you tr aveled outside of the [place]? -NO Family History Family Member Name Family Member Gender Family Member Status Date o f Status Description Data Source(s) Unknown Male Problem [facility] ([facility] () Encounters Encounter Providers Location Date Indications Data Source(s ) Outpatient Attender: Jessica LANCASTER 03/30/2020 09:56:00 A M EST Lab [facility] Lab Outpatient Attender: FELIPE YOUNGER.BIN 12:00:00 AM EST - 03/15/2020 09:07:29 AM EST [facility] Outpatient Attender: Paula ERVINKANIKA-SJP.KANIKA 06/2019 12:00:00 AM EST - 03/04/2020 02:41:25 PM EST [facility] Outpatient [email or web address] 03/03/2020 09:13:27 AM EST [facility] Outpatient Referrer: Kyra ERVINKANIKA-SJP.KANIKA 01/31 12:00:00 AM EST [facility] Unknown<td ID="encounterTypeDescriptionI D0">Chart Update</td><td>Nevin Maldonado RN</td><td></td><td>02/13/2020</td><td></td> Attender: Nevin Maldonado RN 02/13/2020 08:51:00 AM EST - 02/13/2020 11:59:00 PM [facility]) Outpatient<td ID="encounterTypeDescripti onID1">Chronic Disease Follow- up</td><td>Jessica Carbajal NP</td><td>[facility]</td><td>02/10/2020</td><td><content ID="encounterDiagnosisID1-0">Atrial Fibrillation and Flutter</content>, <content ID="encounterDiagnosisID1- 1">Cardiomyopathy</content>, <content ID="encounterDiagnosisID1-2">Coronary Artery Disease</content>, <content ID="encounterDiagnosisID1-3">Diabetes Mellitus Type 2 with Complication</content>, <content ID="encounterDiagnosisID1- 4">Emphysema</content>, <content ID="encounterDiagnosisID1-5">Generalized Anxiety Disorder</content>, <content ID="encounterDiagnosisID1-6">Hypertension (systemic)</content>, <content ID="encounterDiagnosisID1-7">Hyperlipidemia</content>, <content ID="encounterDiagnosisID1-8">Nicotine Dependence</content>, <content ID="encounterDiagnosisID1-9">Restless Legs Syndrome</content></td> Attender: Jessica LANCASTER [facility] 02/10/2020 02:03:00 PM EST - 02/10/2020 03:24:44 PM EST Coronary Artery DiseaseCardiomyopathyCor onary Artery DiseaseCardiomyopathyRestless Legs SyndromeRestless Legs SyndromeAtrial Fibrillation and FlutterAtrial Fibrillation and FlutterNicotine Dependence Generalized Anxiety DisorderNicotine DependenceGeneralized Anxiety DisorderHyperlipidemiaHypertension (systemic)EmphysemaDiabetes Mellitus Type 2 with ComplicationHyperlipidemiaHypertension (systemic)EmphysemaDiabetes Mellitus Type 2 with Complication BOB ([facility]) Coronary Artery Disease Cardiomyopathy Coronary Artery Disease Cardiomyopathy Restless Legs Syndrome Restless Legs Syndrome Atrial Fibrillation and Flutter Atrial Fibrillation and Flutter Nicotine Dependence Generalized Anxiety Disorder Nicotine Dependence Generalized Anxiety Disorder Hyperlipidemia Hypertension (systemic) Emphysema Diabetes Mellitus Type 2 with Complicati on Hyperlipidemia Hypertension (systemic) Emphysema Diabetes Mellitus Type 2 with Complicati on Outpatient Attender: Sanaz barba 02/02/2020 09:15:00 AM EST [facility] ([facility]) Outpatient [email or web address] 01/21/2020 01:06:49 PM EDT [facility] Outpatient [email or web address] 12/10/2019 08:32:16 AM EDT [facility] Outpatient Attender: Misty Wyatt NP [facility] 02:45:00 PM EDT [facility] ([facility]) Outpatient [email or web address] 10/29/2019 08:32:44 AM EDT [facility] Unknown<td ID="encounterTypeDescriptionI D2">Correspondence</td><td>Jessica Carbajal NP</td><td></td><td>10/20/2019</td><td></td> Attender: Jessica LANCASTER 10/20/2019 11:00:00 AM EDT - 10/20/2019 11:59:00 PM EDT [facility]) Unknown<td ID="encounterTypeDescriptionI D3">Referral Order</td><td>Claire Carbajal NP</td><td></td><td>10/13/2019</td><td></td> Attender: CLAIRE CARBAJAL NP 10/13/2019 10:15:00 AM EDT - 10/13/2019 11:59:00 PM EDT [facility]) Outpatient<td ID="encounterTypeDescripti onID4">Chronic Disease Follow- up</td><td>Jessica Carbajal NP</td><td>[facility]</td><td>10/10/2019</td><td><content ID="encounterDiagnosisID4-0"> Anemia</content>, <content ID="encounterDiagnosisID4-1">Atrial Fibrillation and Flutter</content>, <content ID="encounterDiagnosisID4-2">Coronary Artery Disease</content>, <content ID="encounterDiagnosisID4-3">Diabetes Mellitus Type 2 with Complication</content>, <content ID="encounterDiagnosisID4- 4">Hypertension (systemic)</content>, <content ID="encounterDiagnosisID4- 5">Emphysema</content>, <content ID="encounterDiagnosisID4-6">Generalized Anxiety Disorder</content>, <content ID="encounterDiagnosisID4-7"> Hyperlipidemia</content>, <content ID="encounterDiagnosisID4-8">Abdominal Pain--epigastric</content>, <content ID="encounterDiagnosisID4-9">Chest Pain</content>, <content ID="encounterDiagnosisID4-10">Sinusitis</content>, <content ID="encounterDiagnosisID4-11">Dermatophytosis</content></td> Attender: Jessica LANCASTER [facility] 10/10/2019 01:02:00 PM EDT - 10/10/2019 02:36:15 PM EDT DermatophytosisSinusitisChest PainAbdomi nal Pain--epigastricDermatophytosisSinusitisChest PainAbdominal Pain--epigastricDermatophytosisSinusitisChest PainAbdominal Pain--epigastricCoronary Artery DiseaseCoronary Artery DiseaseCoronary Artery DiseaseAnemiaAnemiaAnemiaAtrial Fibrillation and FlutterAtrial Fibrillation and FlutterAtrial Fibrillation and FlutterGeneralized Anxiety DisorderGeneralized Anxiety DisorderGeneralized Anxiety DisorderHyperlipidemiaEmphysemaHypertension (systemic)Diabetes Mellitus Type 2 with ComplicationHyperlipidemiaEmphysemaHypertension (systemic)Diabetes Mellitus Type 2 with ComplicationHyperlipidemiaEmphysemaHypertension (systemic)Diabetes Mellitus Type 2 with Complication [facility] ([facility]) Dermatophytosis Sinusitis Chest Pain Abdominal Pain--epigastric Dermatophytosis Sinusitis Chest Pain Abdominal Pain--epigastric Dermatophytosis Sinusitis Chest Pain Abdominal Pain--epigastric Coronary Artery Disease Coronary Artery Disease Coronary Artery Disease Anemia Anemia Anemia Atrial Fibrillation and Flutter Atrial Fibrillation and Flutter Atrial Fibrillation and Flutter Generalized Anxiety Disorder Generalized Anxiety Disorder Generalized Anxiety Disorder Hyperlipidemia Emphysema Hypertension (systemic) Diabetes Mellitus Type 2 with Complicati on Hyperlipidemia Emphysema Hypertension (systemic) Diabetes Mellitus Type 2 with Complicati on Hyperlipidemia Emphysema Hypertension (systemic) Diabetes Mellitus Type 2 with Complicati on Outpatient Attender: Misty Wyatt NP [place] 03:45:00 PM EDT [facility]) Outpatient<td ID="encounterTypeDescripti onID5">Medication Order</td><td>Irena Bush NP</td><td></td><td>09/29/2019</td><td></td> Attender: Irena Bush NP 09/29/2019 05:55:00 PM EDT - 09/29/2019 11:59:00 PM EDT [facility] ([facility]) Outpatient [email or web address] 09/18/2019 12:52:15 PM EDT [facility] Outpatient Referrer: Paula [email or web address]-[email or web address].KANIKA 12:00:00 AM EDT [facility] Outpatient Attender: Paula YOUNGER.KANIKA-SJP.KANIKA 05/2019 12:00:00 AM EDT - 09/02/2019 02:52:20 PM EDT [facility] Outpatient Attender: Sushant Gómez/Martha keenan 08/22/2019 10:45:00 AM EDT [facility] ([facility]) Outpatient [email or web address] 08/05/2019 04:26:21 PM EDT [facility] Outpatient<td ID="encounterTypeDescripti onID6">Acute L2</td><td>Jessica Carbajal FARM MACHINERY SET UP MECHANIC</td><td>[facility]</td><td>07/24/2019</td><td><content ID="encounterDiagnosisID6-0">Complex Regional Pain Syndrome Type I Upper Limb</content>, <content ID="encounterDiagnosisID6-1">Low Back Pain</content></td> Attender: Jessica Carbajal 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 MANAGER [facility] 07/24/2019 09:24:00 AM EDT - 07/24/2019 10:39:38 AM EDT Low Back PainLow Back PainLow Back PainLow Back PainComplex Regional Pain Syndrome Type I Upper LimbComplex Regional Pain Syndrome Type I Upper LimbComplex Regional Pain Syndrome Type I Upper LimbComplex Regional Pain Syndrome Type I Upper Limb BOB ([facility]) Low Back Pain Low Back Pain Low Back Pain Low Back Pain Complex Regional Pain Syndrome Type I Up per Limb Complex Regional Pain Syndrome Type I Up per Limb Complex Regional Pain Syndrome Type I Up per Limb Complex Regional Pain Syndrome Type I Up per Limb Outpatient<td ID="encounterTypeDescripti onID7">Acute L3</td><td>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</td><td>[facility]</td><td>07/21/2019</td><td><content ID="encounterDiagnosisID7-0">Vaginitis Acute</content>, <content ID="encounterDiagnosisID7-1">Microscopic Hematuria</content></td> Attender: GERMÁN RADHA FARM MACHINERY SET UP MECHANIC [facility] 07/21/2019 01:46:00 PM EDT - 07/21/2019 03:22:18 PM EDT Microscopic HematuriaVaginitis AcuteMicr oscopic HematuriaVaginitis AcuteMicroscopic HematuriaVaginitis AcuteMicroscopic HematuriaVaginitis Acute [facility] ([facility]) Microscopic Hematuria Vaginitis Acute Microscopic Hematuria Vaginitis Acute Microscopic Hematuria Vaginitis Acute Microscopic Hematuria Vaginitis Acute Outpatient Attender: G[employer] 0 07/21/2019 08:06:00 AM EDT [facility] Outpatient Attender: Malina Gómez/Marshall/José Antonio/R eindl 07/03/2019 10:00:00 AM EDT [facility], ) Outpatient<td ID="encounterTypeDescripti onID8">Telephone Encounter</td><td>Cesia Blackwell DO</td><td></td><td>06/23/2019</td><td><content ID="[email or web address]"> Coronary Artery Disease</content>, <content ID="encounterDiagnosisID8- 1">Cardiomyopathy</content>, <content ID="encounterDiagnosisID8-2">Peripheral Vascular Disease</content></td> Attender: Cesia Blackwell DO 06/23/2019 12:12:00 PM EDT - 06/23/2019 11:59:00 PM EDT Peripheral Vascular DiseasePeripheral Vascular DiseasePeripheral Vascular DiseasePeripheral Vascular DiseasePeripheral Vascular DiseaseCardiomyopathyCoronary Artery DiseaseCardiomyopathyCoronary Artery DiseaseCardiomyopathyCoronary Artery DiseaseCardiomyopathyCoronary Artery DiseaseCardiomyopathyCoronary Artery Disease [facility] ([facility]) Peripheral Vascular Disease Peripheral Vascular Disease Peripheral Vascular Disease Peripheral Vascular Disease Peripheral Vascular Disease Cardiomyopathy Coronary Artery Disease Cardiomyopathy Coronary Artery Disease Cardiomyopathy Coronary Artery Disease Cardiomyopathy Coronary Artery Disease Cardiomyopathy Coronary Artery Disease Outpatient Attender: Malina Gómez/Marshall/José Antonio/R eindl 06/12/2019 01:00:00 PM EDT [facility] ([facility], ) Unknown<td ID="encounterTypeDescriptionI D9">Correspondence</td><td>Cesia Blackwell DO</td><td></td><td>06/11/2019</td><td></td> Attender: Cesia Blackwell DO 06/11/2019 08:46:00 AM EDT - 06/11/2019 11:59:00 PM EDT [facility] ([facility]) Unknown<td ID="encounterTypeDescriptionI D10">Referral Order</td><td>Cesia Blackwell DO</td><td></td><td>06/11/2019</td><td></td> Attender: Cesia Blackwell DO 06/11/2019 08:43:00 AM EDT - 06/11/2019 11:59:00 PM EDT [facility] Unknown<td ID="encounterTypeDescriptionI D11">Chart Update</td><td>Claire Wheeler RN</td><td></td><td>06/09/2019</td><td></td> Attender: Claire Wheeler RN 06/09/2019 03:34:00 PM EDT - 06/09/2019 11:59:00 PM EDT [facility] ([facility] Unknown<td ID="encounterTypeDescriptionI D12">AHR</td><td>Cesia Blackwell DO</td><td>[facility]</td><td>06/09/2019</td><td><content ID="[id number]">Routine History and Physical</content></td> Attender: Cesia Blackwell DO [facility] 06/09/2019 11:49:00 AM EDT - 06/09/2019 01:43:21 PM EDT Routine History and PhysicalRoutine Hist ory and PhysicalRoutine History and PhysicalRoutine History and PhysicalRoutine History and PhysicalRoutine History and PhysicalRoutine History and Physical [facility] ([facility]) Routine History and Physical Routine History and Physical Routine History and Physical Routine History and Physical Routine History and Physical Routine History and Physical Routine History and Physical Unknown<td ID="encounterTypeDescriptionI D13">Chart Prep</td><td>Cesia Blackwell DO</td><td></td><td>05/23/2019</td><td></td> Attender: Cesia Blackwell DO 05/23/2019 08:55:00 AM EST - 05/23/2019 11:59:00 PM EST [facility] ([facility]) Outpatient Referrer: Sushant Daniels MD 04/09/2019 02:50:0 0 PM EST Count Includes [facility] Outpatient<td ID="encounterTypeDescripti onID14">Medication Order</td><td>Jessica Carbajal NP</td><td></td><td>03/31/2019</td><td></td> Attender: Jessica LANCASTER 03/31/2019 09:51:00 AM EST - 03/31/2019 11:59:00 PM EST [facility] ([facility]) Outpatient Attender: Jessica LANCASTER 03/28/2019 07:01:00 P M EST [facility] Outpatient<td ID="encounterTypeDescripti onID15">Hospital Follow-up</td><td>Jessica Carbajal NP</td><td>[facility]</td><td>03/28/2019</td><td><content ID="[id number]">Vaginitis</content>, <content ID="[id number]">Diabetes Mellitus Type 2 with Complication</content>, <content ID="[id number]">Congestive Heart Failure</content>, <content ID="[id number]">Chronic Obstructive Pulmonary Disease</content></td> Attender: Jessica LANCASTER [facility] 03/28/2019 10:52:00 AM EST - 03/28/2019 12:10:45 PM EST Chronic Obstructive Pulmonary DiseaseCongestive Heart FailureVaginitisChronic Obstructive Pulmonary DiseaseCongestive Heart FailureVaginitisChronic Obstructive Pulmonary DiseaseCongestive Heart FailureVaginitisChronic Obstructive Pulmonary DiseaseCongestive Heart FailureVaginitisChronic Obstructive Pulmonary DiseaseCongestive Heart FailureVaginitisChronic Obstructive Pulmonary DiseaseCongestive Heart FailureVaginitisChronic Obstructive Pulmonary DiseaseCongestive Heart FailureVaginitisChronic Obstructive Pulmonary DiseaseCongestive Heart FailureVaginitisDiabetes Mellitus Type 2 with ComplicationDiabetes Mellitus Type 2 with ComplicationDiabetes Mellitus Type 2 with ComplicationDiabetes Mellitus Type 2 with ComplicationDiabetes Mellitus Type 2 with ComplicationDiabetes Mellitus Type 2 with ComplicationDiabetes Mellitus Type 2 with ComplicationDiabetes Mellitus Type 2 with Complication [facility] ([facility]) Chronic Obstructive Pulmonary Disease Congestive Heart Failure Vaginitis Chronic Obstructive Pulmonary Disease Congestive Heart Failure Vaginitis Chronic Obstructive Pulmonary Disease Congestive Heart Failure Vaginitis Chronic Obstructive Pulmonary Disease Congestive Heart Failure Vaginitis Chronic Obstructive Pulmonary Disease Congestive Heart Failure Vaginitis Chronic Obstructive Pulmonary Disease Congestive Heart Failure Vaginitis Chronic Obstructive Pulmonary Disease Congestive Heart Failure Vaginitis Chronic Obstructive Pulmonary Disease Congestive Heart Failure Vaginitis Diabetes Mellitus Type 2 with Complicati on Diabetes Mellitus Type 2 with Complicati on Diabetes Mellitus Type 2 with Complicati on Diabetes Mellitus Type 2 with Complicati on Diabetes Mellitus Type 2 with Complicati on Diabetes Mellitus Type 2 with Complicati on Diabetes Mellitus Type 2 with Complicati on Diabetes Mellitus Type 2 with Complicati on Outpatient Referrer: Sushant Daniels MD 03/03/2019 03:16:0 0 PM EST [facility] Outpatient Referrer: Sushant Daniels MD 03/03/2019 03:16:0 0 PM EST [facility] Outpatient Referrer: Sushant Daniels MD 03/03/2019 03:01:0 0 PM EST [facility] Outpatient Referrer: Sushant Daniels MD 02/21/2019 11:05:0 0 AM EST [facility] Outpatient [email or web address] 02/20/2019 12:00 :00 AM EST - 02/20/2019 01:57:47 PM EST [facility] Outpatient Attender: Sushant Gómez/Tony/José Antonio/Aurora keenan 02/18/2019 01:30:00 PM EST [facility] Unknown<td ID="encounterTypeDescriptionI D16">[Patient Encounter]</td><td>Cesia Blackwell DO</td><td></td><td>02/13/2019</td><td></td> Attender: Cesia Blackwell DO 02/13/2019 03:55:00 PM EST - 02/13/2019 11:59:00 PM EST [facility] ([facility]) Outpatient [email or web address] 01/09/2019 11:16:53 AM EDT [facility] Immunizations Vaccine Date Status Description Data Source(s) INFLUENZA VACCINE QUADRIVALENT 2019- (65 YR UP)/MF59 C.1/PF 02/02/2020 12:00:00 AM EST completed [facility] Influenza, high dose seasonal 01/22/2020 08:52:00 AM EDT complet ed Influenza, high-dose (over 65) 2 01/22/2020 Complete (Reported) Merle ent [facility] ([facility]) Medications Medication Brand Name Start Date Product Form Dose Route Admi nistrative Instructions Pharmacy Instructions Status Indications Reaction Description Data Source(s) 1,250 mcg (50,000 unit) 04/10/2020 12:00:00 AM EST capsule 3 TAKE ONE CAPSULE BY MOUTH ONCE A MONTH TAKE ONE CAPSULE BY MOUTH ONCE A MONTH SOLD: 04/12/2020 [facility] 300 mg 04/09/2020 12:00:00 AM EST capsule 42 TAKE ONE CAPSULE BY MOUTH EVERY 8 HOURS FOR 14 DAYS TAKE ONE CAPSULE BY MOUTH EVERY 8 HOURS FOR 14 DAYS SO LD: 04/09/2020 [facility] 10 mg 04/03/2020 12:00:00 AM EST tablet extended release 24hr 180 TAKE ONE TABLET BY MOUTH TWO TIMES A DAY TAKE ONE TABLET BY MOUTH TWO TIMES A DAY SOLD: 04/03/2020 [facility] 5-325 mg 03/21/2020 12:00:00 AM EST tablet 120 TAKE ONE TABLET BY MOUTH FOUR TIMES A DAY USE SPARINGLY MAXIMUM DAILY DOSE = 4 TAKE ONE TABLET BY MOUTH FOUR TIMES A DAY USE SPARINGLY MAXIMUM DAILY DOSE = 4 SOLD: 03/21/2020 [facility] Cyclobenzaprine hydrochloride 10 MG Oral Tablet CYCLOBENZAPR INE HCL 03/09/2020 12:00:00 AM EST tablet 60 TAKE ONE TABLET BY MOUTH TWICE A DAY NEEDED TAKE ONE TABLET BY MOUTH TWICE A DAY NEEDED SOLD: 04/03/2020 [facility] Cyclobenzaprine hydrochloride 10 MG Oral Tablet CYCLOBENZAPR INE HCL 03/09/2020 12:00:00 AM EST tablet 60 TAKE ONE TABLET BY MOUTH TWICE A DAY NEEDED TAKE ONE TABLET BY MOUTH TWICE A DAY NEEDED SOLD: 03/10/2020 [facility] 50 mg 03/05/2020 12:00:00 AM EST tablet 90 TAKE ONE TABLET BY MOUTH EVERY DAY TAKE ONE TABLET BY MOUTH EVERY DAY SOLD: 03/07/2020 [facility] rivaroxaban 20 MG Oral Tablet rivaroxaban (XARELTO) 20 MG TABS rivaroxaban (XARELTO) 20 MG TABS 03/04/2020 12:00:00 AM EST 20 mg Oral active Atrial fibrillation Take 1 tablet (20 mg total) by mouth mayco ly with dinner [facility] Atrial fibrillation Losartan Potassium 50 MG Oral Tablet losartan (COZAAR) 50 MG tablet losartan (COZAAR) 50 MG tablet 03/04/2020 12:00:00 AM EST 50 mg Oral active Hypertension, essential Take 1 tablet (50 mg total) by mouth daily [facility] Hypertension, essential 5-325 mg 02/21/2020 12:00:00 AM EST tablet 120 TAKE 1 TABLET BY MOUTH FOUR TIMES A DAY SPARINGLY MAXIMUM DAILY DOSE = 4 TABLETS TAKE 1 TABLET BY MOUTH FOUR TIMES A DAY SPARINGLY MAXIMUM DAILY DOSE = 4 TABLETS SOLD: 02/21/2020 [facility] 20 mg 02/20/2020 12:00:00 AM EST tablet 270 TAKE 2 TABLETS BY MOUTH THREE TIMES A DAY NEEDED TAKE 2 TABLETS BY MOUTH THREE TIMES A DAY NEEDED SO LD: 02/21/2020 [facility] Furosemide 20 MG Oral Tablet furosemide (LASIX) 20 MG tablet furosemide (LASIX) 20 MG tablet 02/19/2020 12:00:00 AM EST 40 mg Oral abort ed Take 2 tablets (40 mg total) by mouth 3 (three) times a day as needed [facility] montelukast 10 MG Oral Tablet MONTELUKAST SODIUM 02/11/2020 12:0 0:00 AM EST tablet 30 TAKE ONE TABLET BY MOUTH AT BEDT TASHA TAKE ONE TABLET BY MOUTH AT BEDTIME SOLD: 02/12/2020 [facility] montelukast 10 MG Oral Tablet montelukast (SINGULAIR) 10 MG tablet montelukast (SINGULAIR) 10 MG tablet 02/11/2020 12:00:00 AM EST 10 mg Oral active Take 10 mg by mouth daily [facility] montelukast 10 MG Oral Tablet MONTELUKAST SODIUM 02/11/2020 12:0 0:00 AM EST tablet 30 TAKE ONE TABLET BY MOUTH AT BEDT TASHA TAKE ONE TABLET BY MOUTH AT BEDTIME SOLD: 03/10/2020 [facility] montelukast 10 MG Oral Tablet MONTELUKAST SODIUM 02/11/2020 12:0 0:00 AM EST tablet 30 TAKE ONE TABLET BY MOUTH AT BEDT TASHA TAKE ONE TABLET BY MOUTH AT BEDTIME SOLD: 04/07/2020 [facility] 5 mg 02/11/2020 12:00:00 AM EST tablet 45 TAKE 1/2 TABLET BY MOUTH ONCE DAILY TAKE 1/2 TABLET BY MOUTH ONCE DAILY SOLD: 02/12/2020 [facility] montelukast 10 MG Oral Tablet Montelukast Sodium 10 MG Oral Tablet Montelukast Sodium 10 MG Oral Tablet 02/10/2020 12:00:00 AM EST 1 active montelukast 10 MG Oral Tablet [facility] ([facility]) Bisoprolol Fumarate 5 MG Oral Tablet Bisoprolol Fumarate 5 M G Oral Tablet 02/10/2020 12:00:00 AM EST active bisoprolol fumarate 5 MG Oral Tablet [facility] ([facility]) Metformin hydrochloride 500 MG Oral Tablet METFORMIN HCL 02/07/2020 12:00:00 AM EST tablet 360 TAKE TWO TABLETS BY MOUTH TW ICE A DAY TAKE TWO TABLETS BY MOUTH TWICE A DAY SOLD: 02/08/2020 [facility] Cyclobenzaprine hydrochloride 10 MG Oral Tablet Cyclobenzaprine HCl 10 MG Oral Tablet Cyclobenzaprine HCl 10 MG Oral Tablet 02/06/2020 12:00:00 AM EST active cyclobenzaprine hydrochlorid e 10 MG Oral Tablet [facility] ([facility]) Metformin hydrochloride 500 MG Oral Tablet metFORMIN H Cl 500 MG Oral Tablet metFORMIN HCl 500 MG Oral Tablet 02/06/2020 12:00:00 AM EST active metformin hydrochloride 500 MG Oral Tablet [facility] ([facility]) 875-125 mg 02/02/2020 12:00:00 AM EST tablet 14 TAKE ONE TABLET BY MOUTH TWICE A DAY FOR 7 DAYS TAKE ONE TABLET BY MOUTH TWICE A DAY FOR 7 DAYS SOLD: 02/02/2020 [facility] FLUAD QUADRIVALENT 0.5 ML PRSY 51122-026-54 02/02/2020 12:00:00 AM EST active Inject as directed [facility] Amoxicillin 875 MG / Clavulanate 125 MG Oral Tablet Am oxicillin/Clavulanate Potassium 02/02/2020 12:00:00 AM EST active [facility] ([facility] 5-325 mg 01/23/2020 12:00:00 AM EDT tablet 120 TAKE ONE TABLET BY MOUTH FOUR TIMES A DAY USE SPARINGLY MAXIMUM DAILY DOSE = 4 TAKE ONE TABLET BY MOUTH FOUR TIMES A DAY USE SPARINGLY MAXIMUM DAILY DOSE = 4 SOLD: 01/23/2020 [facility] Acetaminophen 325 MG / Oxycodone Hydroch loride 5 MG Oral Tablet [Percocet] Percocet 5-325 MG Oral Tablet Percocet 5-325 MG Oral Tablet 01/22/2020 12:00:00 AM EDT 1 active acetamin ophen 325 MG / oxycodone hydrochloride 5 MG Oral Tablet [Percocet] [facility] ([facility]) 5-325 mg 12/25/2019 12:00:00 AM EDT tablet 120 TAKE ONE TABLET BY MOUTH FOUR TIMES A DAY USE SPARINGLY MAXIMUM DAILY DOSE = FOUR TABLETS TAKE ONE TABLET BY MOUTH FOUR TIMES A DAY USE SPARINGLY MAXIMUM DAILY DOSE = FOUR TABLETS SOLD: 12/25/2019 [facility] 5 mg 12/24/2019 12:00:00 AM EDT tablet 30 TAKE ONE TABLET BY MOUTH AT BEDTIME NEEDED MAXIMUM DAILY DOSE = 1 TAKE ONE TABLET BY MOUTH AT BEDTIME NEEDED MAXIMUM DAILY DOSE = 1 SOLD: 01/25/2020 [facility] 5 mg 12/24/2019 12:00:00 AM EDT tablet 30 TAKE ONE TABLET BY MOUTH AT BEDTIME NEEDED MAXIMUM DAILY DOSE = 1 TAKE ONE TABLET BY MOUTH AT BEDTIME NEEDED MAXIMUM DAILY DOSE = 1 SOLD: 12/24/2019 [facility] 5 mg 12/24/2019 12:00:00 AM EDT tablet 30 TAKE ONE TABLET BY MOUTH AT BEDTIME NEEDED MAXIMUM DAILY DOSE = 1 TAKE ONE TABLET BY MOUTH AT BEDTIME NEEDED MAXIMUM DAILY DOSE = 1 SOLD: 02/27/2020 [facility] 5 mg 12/24/2019 12:00:00 AM EDT tablet 30 TAKE ONE TABLET BY MOUTH AT BEDTIME NEEDED MAXIMUM DAILY DOSE = 1 TAKE ONE TABLET BY MOUTH AT BEDTIME NEEDED MAXIMUM DAILY DOSE = 1 SOLD: 04/03/2020 [facility] Acetaminophen 325 MG / Oxycodone Hydroch loride 5 MG Oral Tablet [Percocet] Perc[facility] 5-325 MG Oral Tablet Percocet 5-325 MG Oral Tablet 12/23/2019 12:00:00 AM EDT 1 aborted acetamin ophen 325 MG / oxycodone hydrochloride 5 MG Oral Tablet [Percocet] [facility] ([facility]) 0.01 % (0.1 mg/gram) 12/18/2019 12:00:00 AM EDT cream 42 APPLY 1/4 GRAM TO PERIURETHRAL AREA DAILY APPLY 1/4 GRAM TO PERIURETHRAL AREA DAILY SOLD: 12/20/2019 [facility] 5-325 mg 11/26/2019 12:00:00 AM EDT tablet 120 TAKE ONE TABLET BY MOUTH FOUR TIMES A DAY USE SPARINGLY MAXIMUM DAILY DOSE = 4 TAKE ONE TABLET BY MOUTH FOUR TIMES A DAY USE SPARINGLY MAXIMUM DAILY DOSE = 4 SOLD: 11/26/2019 [facility] Acetaminophen 325 MG / Oxycodone Hydroch loride 5 MG Oral Tablet [Percocet] Percocet 5-325 MG Oral Tablet Percocet 5-325 MG Oral Tablet 11/25/2019 12:00:00 AM EDT 1 aborted acetamin ophen 325 MG / oxycodone hydrochloride 5 MG Oral Tablet [Percocet] [facility] ([facility]) Zolpidem tartrate 5 MG Oral Tablet Zolpidem Tartrate 5 MG Oral Tablet Zolpidem Tartrate 5 MG Oral Tablet 11/25/2019 12:00:00 AM EDT 1 active zolpidem tartrate 5 MG Oral Tablet [facility] ([facility]) 25 mg 11/25/2019 12:00:00 AM EDT tablet 90 TAKE ONE TABLET BY MOUTH EVERY DAY TAKE ONE TABLET BY MOUTH EVERY DAY SOLD: 11/25/2019 [facility] 90 mcg/actuation 11/20/2019 12:00:00 AM EDT HFA aerosol inha ler 18 INHALE 2 PUFFS BY MOUTH FOUR TIMES A DAY NEEDED FOR BREATHING INHALE 2 PUFFS BY MOUTH FOUR TIMES A DAY NEEDED FOR BREATHING SOLD: 11/21/2019 [facility] rivaroxaban 20 MG Oral Tablet rivaroxaban (XARELTO) 20 MG TABS rivaroxaban (XARELTO) 20 MG TABS 11/18/2019 12:00:00 AM EDT 20 mg Oral aborted Take 1 tablet (20 mg total) by mouth daily with dinner [facility] Acetaminophen 325 MG / Oxycodone Hydroch loride 5 MG Oral Tablet [Percocet] P[facility] 5-325 MG Oral Tablet Percocet 5-325 MG Oral Tablet 10/28/2019 12:00:00 AM EDT 1 aborted acetamin ophen 325 MG / oxycodone hydrochloride 5 MG Oral Tablet [Percocet] [facility] ([facility]) 5-325 mg 10/28/2019 12:00:00 AM EDT tablet 120 TAKE ONE TABLET BY MOUTH FOUR TIMES A DAY , USE SPARINGLY MAXIMUM DAILY DOSE = 4 TABLETS TAKE ONE TABLET BY MOUTH FOUR TIMES A DAY , USE SPARINGLY MAXIMUM DAILY DOSE = 4 TABLETS SOLD: 10/28/2019 [facility] 875-125 mg 10/10/2019 12:00:00 AM EDT tablet 20 TAKE ONE TABLET BY MOUTH TWO TIMES A DAY WITH FOOD TAKE ONE TABLET BY MOUTH TWO TIMES A DAY WITH FOOD INA [facility] silodosin 8 MG Oral Capsule Silodosin 8 MG Oral Capsul e Silodosin 8 MG Oral Capsule 10/10/2019 12:00:00 AM EDT active silodosin 8 MG Oral Capsule [facility] ([facility]) Estradiol 0.1 MG/ML Vaginal Cream Estradiol 0.1 MG/GM Vaginal Cream Estradiol 0.1 MG/GM Vaginal Cream 10/10/2019 12:00:00 AM EDT 1 active estradiol 0.1 MG/ML Vaginal Cream [facility] ([facility]) 30 mg 10/10/2019 12:00:00 AM EDT capsule,delayed release (DR/EC) 90 TAKE ONE CAPSULE BY MOUTH EVERY DAY TAKE ONE CAPSULE BY MOUTH EVERY DAY SOLD: 10/10/2019 [facility] Nystatin 100 UNT/MG Topical Powder 100,000 unit/gram [place] 10/10/2019 12:00:00 AM EDT powder 15 APPLY TO AFFECTED AREA(S) TWO TIMES A DAY APPLY TO AFFECTED AREA(S) TWO TIMES A DAY SOLD: 10/10/2019 [facility] 5 mg 10/10/2019 12:00:00 AM EDT tablet 45 TAKE 1/2 TABLET BY MOUTH ONCE DAILY TAKE 1/2 TABLET BY MOUTH ONCE DAILY SOLD: 10/10/2019 [facility] 30 mg 10/10/2019 12:00:00 AM EDT capsule,delayed release (DR/EC) 90 TAKE ONE CAPSULE BY MOUTH EVERY DAY TAKE ONE CAPSULE BY MOUTH EVERY DAY SOLD: 01/15/2020 [facility] Amoxicillin 875 MG / Clavulanate 125 MG Oral Tablet Amoxicillin-Pot Clavulanate 875-125 MG Oral Tablet Amoxicillin-Pot Clavulanate 875-125 MG Oral Tablet 10/10/2019 12:00:00 AM EDT 1 aborted amoxicillin 875 MG / clavulanate 125 MG Oral Tablet [facility] ([facility]) 30 mg 10/10/2019 12:00:00 AM EDT capsule,delayed release (DR/EC) 90 TAKE ONE CAPSULE BY MOUTH EVERY DAY TAKE ONE CAPSULE BY MOUTH EVERY DAY SOLD: 04/07/2020 [facility] lansoprazole 30 MG Delayed Release Oral Capsule Lansoprazole 30 MG Oral Capsule Delayed Release Lansoprazole 30 MG Oral Capsule Delayed Release 2019 12:00:00 AM EDT 1 active lansoprazole 30 MG Delayed Release Oral Capsule [facility] ([facility]) 24 HR venlafaxine 75 MG Extended Release Oral Capsule Venlafaxine HCl ER 75 MG Oral Capsule Extended Release 24 Hour Venlafaxine HCl ER 75 MG Oral Capsule Extended Release 24 Hour 10/10/2019 12:00:00 AM EDT 1 active 24 HR venlafaxine 75 MG Extended Release Oral Capsule [facility] ([facility]) glipiZIDE XL 10 MG Oral Tablet Extended Release 24 Domonique r glipiZIDE XL 10 MG Oral Tablet Extended Release 24 Hour 10/10/2019 12:00:00 AM EDT 1 active glipiZIDE XL [facility] ([facility]) Fluticasone Propionate 50 MCG/ACT Nasal Suspension Flu ticasone Propionate 50 MCG/ACT Nasal Suspension 10/10/2019 12:00:00 AM EDT completed fluticasone propionate 0.05 MG/ACTUAT Metered Dose Nasal [place] [facility] ([facility]) Levothyroxine Sodium 0.05 MG Oral Tablet Levothyroxine Sodium 50 MCG Oral Tablet Levothyroxine Sodium 50 MCG Oral Tablet 10/10/2019 12:00:00 AM EDT 1 active levothyroxine sodium 0.05 MG Ora l Tablet [facility] ([facility]) atorvastatin 40 MG Oral Tablet Atorvastatin Calcium 40 MG Oral Tablet Atorvastatin Calcium 40 MG Oral Tablet 10/10/2019 12:00:00 AM EDT 1 active atorvastatin 40 MG [facility]t [facility] Bisoprolol Fumarate 5 MG Oral Tablet Bisoprolol Fumarate 5 M G Oral Tablet 10/10/2019 12:00:00 AM EDT aborted bisoprolol fumarate 5 MG Oral Tablet [facility] ([facility]) 50 mcg/actuation 10/10/2019 12:00:00 AM EDT spray,suspension 16 2 SPRAYS IN EACH NOSTRIL ONCE DAILY 2 SPRAYS IN EACH NOSTRIL ONCE DAILY SOLD: 10/10/2019 [facility] Nystatin 100 UNT/MG Topical Powder Nystatin 244234 UNI T/GM External Powder Nystatin 361341 UNIT/GM External Powder 10/10/2019 12:00:00 AM EDT 1 active nystatin 100 UNT/MG Topical Powd er [facility] ([facility]) 50 mcg 10/10/2019 12:00:00 AM EDT tablet 90 TAKE ONE TABLET BY MOUTH EVERY DAY TAKE ONE TABLET BY MOUTH EVERY DAY SOLD: 10/10/2019 [facility] atorvastatin 40 MG Oral Tablet ATORVASTATIN CALCIUM 10/10/2019 1 2:00:00 AM EDT tablet 90 TAKE ONE TABLET BY MOUTH EVERY D AY TAKE ONE TABLET BY MOUTH EVERY DAY SOLD: 01/15/2020 [facility] 50 mcg 10/10/2019 12:00:00 AM EDT tablet 90 TAKE ONE TABLET BY MOUTH EVERY DAY TAKE ONE TABLET BY MOUTH EVERY DAY SOLD: 01/25/2020 [facility] 75 mg 10/10/2019 12:00:00 AM EDT capsule,extended releas e 24hr 90 TAKE ONE CAPSULE BY MOUTH EVERY DAY TAKE ONE CAPSULE BY MOUTH EVERY DAY SOLD: 10/10/2019 [facility] 75 mg 10/10/2019 12:00:00 AM EDT capsule,extended releas e 24hr 90 TAKE ONE CAPSULE BY MOUTH EVERY DAY TAKE ONE CAPSULE BY MOUTH EVERY DAY SOLD: 01/15/2020 [facility] atorvastatin 40 MG Oral Tablet ATORVASTATIN CALCIUM 10/10/2019 1 2:00:00 AM EDT tablet 90 TAKE ONE TABLET BY MOUTH EVERY D AY TAKE ONE TABLET BY MOUTH EVERY DAY SOLD: 10/10/2019 [facility] 20 mg 10/07/2019 12:00:00 AM EDT tablet 180 TAKE TWO TABLETS BY MOUTH EVERY DAY TAKE TWO TABLETS BY MOUTH EVERY DAY SOLD: 10/08/2019 [facility] Vitamin D 10/07/2019 12:00:00 AM EDT active [facility] ([facility] 20 mg 10/07/2019 12:00:00 AM EDT tablet 180 TAKE TWO TABLETS BY MOUTH EVERY DAY TAKE TWO TABLETS BY MOUTH EVERY DAY SOLD: 12/24/2019 [facility] 5-325 mg 09/29/2019 12:00:00 AM EDT tablet 120 TAKE ONE TABLET BY MOUTH FOUR TIMES A DAY, USE SPARINGLY MAXIMUM DAILY DOSE = 4 TABLETS TAKE ONE TABLET BY MOUTH FOUR TIMES A DAY, USE SPARINGLY MAXIMUM DAILY DOSE = 4 TABLETS SOLD: 09/29/2019 [facility] Acetaminophen 325 MG / Oxycodone Hydroch loride 5 MG Oral Tablet [Percocet] Percocet 5-325 MG Oral Tablet Percocet 5-325 MG Oral Tablet 09/29/2019 12:00:00 AM EDT 1 aborted acetamin ophen 325 MG / oxycodone hydrochloride 5 MG Oral Tablet [Percocet] [facility] ([facility]) Cyclobenzaprine hydrochloride 10 MG Oral Tablet CYCLOBENZAPR INE HCL 09/01/2019 12:00:00 AM EDT tablet 60 TAKE ONE TABLET BY MOUTH TWICE A DAY NEEDED TAKE ONE TABLET BY MOUTH TWICE A DAY NEEDED SOLD: 11/04/2019 [facility] 10 mg 09/01/2019 12:00:00 AM EDT tablet 60 TAKE ONE TABLET BY MOUTH TWICE A DAY NEEDED TAKE ONE TABLET BY MOUTH TWICE A DAY NEEDED SOLD: 09/01/2019 [facility] Cyclobenzaprine hydrochloride 10 MG Oral Tablet CYCLOBENZAPR INE HCL 09/01/2019 12:00:00 AM EDT tablet 60 TAKE ONE TABLET BY MOUTH TWICE A DAY NEEDED TAKE ONE TABLET BY MOUTH TWICE A DAY NEEDED SOLD: 10/07/2019 [facility] Cyclobenzaprine hydrochloride 10 MG Oral Tablet CYCLOBENZAPR INE HCL 09/01/2019 12:00:00 AM EDT tablet 60 TAKE ONE TABLET BY MOUTH TWICE A DAY NEEDED TAKE ONE TABLET BY MOUTH TWICE A DAY NEEDED SOLD: 12/03/2019 [facility] Cyclobenzaprine hydrochloride 10 MG Oral Tablet Cyclobenzaprine HCl 10 MG Oral Tablet Cyclobenzaprine HCl 10 MG Oral Tablet 09/01/2019 12:00:00 AM EDT aborted cyclobenzaprine hydrochlorid e 10 MG Oral Tablet [facility] ([facility]) Cyclobenzaprine hydrochloride 10 MG Oral Tablet CYCLOBENZAPR INE HCL 09/01/2019 12:00:00 AM EDT tablet 60 TAKE ONE TABLET BY MOUTH TWICE A DAY NEEDED TAKE ONE TABLET BY MOUTH TWICE A DAY NEEDED SOLD: 02/08/2020 [facility] Cyclobenzaprine hydrochloride 10 MG Oral Tablet CYCLOBENZAPR INE HCL 09/01/2019 12:00:00 AM EDT tablet 60 TAKE ONE TABLET BY MOUTH TWICE A DAY NEEDED TAKE ONE TABLET BY MOUTH TWICE A DAY NEEDED SOLD: 01/09/2020 [facility] 5-325 mg 08/31/2019 12:00:00 AM EDT tablet 120 TAKE ONE TABLET BY MOUTH FOUR TIMES A DAY SPARINGLY MAXIMUM DAILY DOSE = 4 TAKE ONE TABLET BY MOUTH FOUR TIMES A DAY SPARINGLY MAXIMUM DAILY DOSE = 4 SOLD: 09/01/2019 [facility] Acetaminophen 325 MG / Oxycodone Hydroch loride 5 MG Oral Tablet [Percocet] Percocet 5-325 MG Oral Tablet Percocet 5-325 MG Oral Tablet 08/29/2019 12:00:00 AM EDT 1 aborted acetamin ophen 325 MG / oxycodone hydrochloride 5 MG Oral Tablet [Percocet] BOB ([facility]) 5-325 mg 08/02/2019 12:00:00 AM EDT tablet 120 TAKE ONE TABLET BY MOUTH FOUR TIMES A DAY, USE SPARINGLY, MAXIMUM DAILY DOSE = 4 TABLETS TAKE ONE TABLET BY MOUTH FOUR TIMES A DAY, USE SPARINGLY, MAXIMUM DAILY DOSE = 4 TABLETS SOLD: 08/02/2019 [facility] Acetaminophen 325 MG / Oxycodone Hydroch loride 5 MG Oral Tablet [Percocet] Percocet 5-325 MG Oral Tablet Percocet 5-325 MG Oral Tablet 08/01/2019 12:00:00 AM EDT 1 aborted acetamin ophen 325 MG / oxycodone hydrochloride 5 MG Oral Tablet [Percocet] [facility] ([facility]) [facility] Miconazole 7 2% Vaginal Cream [facility] Miconazole 7 2% Vagina l Cream 07/25/2019 12:00:00 AM EDT 1 aborted [facility] [place] onazole 7 [facility] ([facility]) OneTouch Ultra Blue In Vitro Strip OneTouch Ultra Blue In Vi tro Strip 07/24/2019 12:00:00 AM EDT active OneTouc h Ultra Blue [facility] ([facility]) BLOOD SUGAR DIAGNOSTIC 07/24/2019 12:00:00 AM EDT strip 250 TEST THREE TIMES A DAY NEEDED DIRECTED TEST THREE TIMES A DAY NEEDED DIRECTED SOLD: 07/25/2019 [facility] D3-50 1.25 MG (41754 UT) Oral Capsule D3-50 1.25 MG (95573 U T) Oral Capsule 07/24/2019 12:00:00 AM EDT 1 active D3-50 [facility] ([facility]) 200 ACTUAT Albuterol 0.09 MG/ACTUAT Mete red Dose Inhaler [Ventolin] Ventolin HFA 108 (90 Base) MCG/ACT Inhalation Aerosol Solution Ventolin HFA 108 (90 Base) MCG/ACT Inhalation Aerosol Solution 07/24/2019 12:00:00 AM EDT 1 active [id number] 200 ACTUAT albuter ol 0.09 MG/ACTUAT Metered Dose Inhaler [Ventolin] BOB ([facility]) silodosin 8 MG Oral Capsule [Rapaflo] Rapaflo 8 MG Ora l Capsule Rapaflo 8 MG Oral Capsule 07/21/2019 12:00:00 AM EDT abort ed silodosin 8 MG Oral Capsule [Rapaflo] [facility] ([facility]) 500 mg 07/21/2019 12:00:00 AM EDT tablet 14 TAKE ONE TABLET BY MOUTH TWICE A DAY .DO NOT DRINK ALCOHOL WITH THIS MEDICATION TAKE ONE TABLET BY MOUTH TWICE A DAY .DO NOT DRINK ALCOHOL WITH THIS MEDICATION SOLD: 07/21/2019 [facility] rivaroxaban 20 MG Oral Tablet [Xarelto] Xarelto 20 MG Oral Tablet Xarelto 20 MG Oral Tablet 07/21/2019 12:00:00 AM EDT 1 active rivaroxaban 20 MG Oral Tablet [Xarelto] [facility] ([facility]) Furosemide 40 MG Oral Tablet Furosemide 40 MG Oral Tablet 12:00:00 AM EDT 1 active furosemide 40 MG Oral Tablet [facility] ([facility]) Fluconazole 150 MG Oral Tablet [Diflucan] Diflucan 150 MG Oral Tablet Diflucan 150 MG Oral Tablet 07/21/2019 12:00:00 AM EDT aborted fluconazole 150 MG Oral Tablet [Diflucan] [facility] ([facility]) Metronidazole 500 MG Oral Tablet [Flagyl] Flagyl 500 M G Oral Tablet Flagyl 500 MG Oral Tablet 07/21/2019 12:00:00 AM EDT 1 abo rted metronidazole 500 MG Oral Tablet [Flagyl] [facility] ([facility]) 150 mg 07/21/2019 12:00:00 AM EDT tablet 2 TAKE ONE TABLET BY MOUTH NOW, MAY REPEAT IN 10 TO 14 DAYS NEEDED TAKE ONE TABLET BY MOUTH NOW, MAY REPEAT IN 10 TO 14 DAYS NEEDED SOLD: 07/21/2019 [facility] Melatonin 10 MG Oral Tablet Disintegrating [facility] Saima atonin 10 MG Oral Tablet Disintegrating 07/21/2019 12:00:00 AM EDT 1 active [facility] Melatonin [facility] ([facility]) 5-325 mg 07/04/2019 12:00:00 AM EDT tablet 120 TAKE ONE TABLET BY MOUTH FOUR TIMES A DAY, USE SPARINGLY, MAXIMUM DAILY DOSE = 4 TABLETS TAKE ONE TABLET BY MOUTH FOUR TIMES A DAY, USE SPARINGLY, MAXIMUM DAILY DOSE = 4 TABLETS SOLD: 07/04/2019 [facility] Acetaminophen 325 MG / Oxycodone Hydroch loride 5 MG Oral Tablet [Percocet] Percocet 5-325 MG OR TABS Percocet 5-325 MG OR TABS 07/03/2019 12:00:00 AM EDT 1 aborted acetaminophen 32 5 MG / oxycodone hydrochloride 5 MG Oral Tablet [Percocet] [facility] ([facility]) Acetaminophen 325 MG / Oxycodone Hydroch loride 5 MG Oral Tablet [Percocet] Percocet 5-325 MG Oral Tablet Percocet 5-325 MG Oral Tablet 07/03/2019 12:00:00 AM EDT 1 aborted acetamin ophen 325 MG / oxycodone hydrochloride 5 MG Oral Tablet [Percocet] [facility] ([facility]) 100,000 unit/gram 06/26/2019 12:00:00 AM EDT ointment 15 APPLY TOPICALLY THREE TIMES A DAY NEEDED TO AFFECTED MIDLINE LOWER ABDOMEN APPLY TOPICALLY THREE TIMES A DAY NEEDED TO AFFECTED MIDLINE LOWER ABDOMEN SOLD: 06/26/2019 [facility] Nystatin 100 UNT/MG Topical Ointment nystatin (MYCOSTA TIN) ointment nystatin (MYCOSTATIN) ointment 06/26/2019 12:00:00 AM EDT a ctive as needed [facility] 5 mg 06/17/2019 12:00:00 AM EDT tablet 30 TAKE ONE TABLET BY MOUTH AT BEDTIME NEEDED, MAXIMUM DAILY DOSE = 1 TABLET TAKE ONE TABLET BY MOUTH AT BEDTIME NEEDED, MAXIMUM DAILY DOSE = 1 TABLET SOLD: 09/22/2019 [facility] 5 mg 06/17/2019 12:00:00 AM EDT tablet 30 TAKE ONE TABLET BY MOUTH AT BEDTIME NEEDED, MAXIMUM DAILY DOSE = 1 TABLET TAKE ONE TABLET BY MOUTH AT BEDTIME NEEDED, MAXIMUM DAILY DOSE = 1 TABLET SOLD: 11/25/2019 [facility] 5 mg 06/17/2019 12:00:00 AM EDT tablet 30 TAKE ONE TABLET BY MOUTH AT BEDTIME NEEDED, MAXIMUM DAILY DOSE = 1 TABLET TAKE ONE TABLET BY MOUTH AT BEDTIME NEEDED, MAXIMUM DAILY DOSE = 1 TABLET SOLD: 10/25/2019 [facility] 5 mg 06/17/2019 12:00:00 AM EDT tablet 30 TAKE ONE TABLET BY MOUTH AT BEDTIME NEEDED, MAXIMUM DAILY DOSE = 1 TABLET TAKE ONE TABLET BY MOUTH AT BEDTIME NEEDED, MAXIMUM DAILY DOSE = 1 TABLET SOLD: 06/18/2019 [facility] Zolpidem tartrate 5 MG Oral Tablet Zolpidem Tartrate 5 MG Oral Tablet Zolpidem Tartrate 5 MG Oral Tablet 06/17/2019 12:00:00 AM EDT 1 aborted zolpidem tartrate 5 MG Oral Tablet [facility] ([facility]) 5 mg 06/17/2019 12:00:00 AM EDT tablet 30 TAKE ONE TABLET BY MOUTH AT BEDTIME NEEDED, MAXIMUM DAILY DOSE = 1 TABLET TAKE ONE TABLET BY MOUTH AT BEDTIME NEEDED, MAXIMUM DAILY DOSE = 1 TABLET SOLD: 08/23/2019 [facility] 5 mg 06/17/2019 12:00:00 AM EDT tablet 30 TAKE ONE TABLET BY MOUTH AT BEDTIME NEEDED, MAXIMUM DAILY DOSE = 1 TABLET TAKE ONE TABLET BY MOUTH AT BEDTIME NEEDED, MAXIMUM DAILY DOSE = 1 TABLET SOLD: 07/22/2019 [facility] 10 mg 06/11/2019 12:00:00 AM EDT tablet 20 TAKE ONE TABLET BY MOUTH EVERY 6 HOURS 30 MINUTES BEFORE MEALS AND AT BEDTIME NEEDED ONLY RARELY TAKE ONE TABLET BY MOUTH EVERY 6 HOURS 30 MINUTES BEFORE MEALS AND AT BEDTIME NEEDED ONLY RARELY SOLD: 03/10/2020 [facility] 10 mg 06/11/2019 12:00:00 AM EDT tablet 20 TAKE ONE TABLET BY MOUTH EVERY 6 HOURS 30 MINUTES BEFORE MEALS AND AT BEDTIME NEEDED ONLY RARELY TAKE ONE TABLET BY MOUTH EVERY 6 HOURS 30 MINUTES BEFORE MEALS AND AT BEDTIME NEEDED ONLY RARELY SOLD: 06/11/2019 [facility] 10 mg 06/11/2019 12:00:00 AM EDT tablet 20 TAKE ONE TABLET BY MOUTH EVERY 6 HOURS 30 MINUTES BEFORE MEALS AND AT BEDTIME NEEDED ONLY RARELY TAKE ONE TABLET BY MOUTH EVERY 6 HOURS 30 MINUTES BEFORE MEALS AND AT BEDTIME NEEDED ONLY RARELY SOLD: 12/24/2019 [facility] 10 mg 06/11/2019 12:00:00 AM EDT tablet 20 TAKE ONE TABLET BY MOUTH EVERY 6 HOURS 30 MINUTES BEFORE MEALS AND AT BEDTIME NEEDED ONLY RARELY TAKE ONE TABLET BY MOUTH EVERY 6 HOURS 30 MINUTES BEFORE MEALS AND AT BEDTIME NEEDED ONLY RARELY SOLD: 11/25/2019 [facility] 10 mg 06/11/2019 12:00:00 AM EDT tablet 20 TAKE ONE TABLET BY MOUTH EVERY 6 HOURS 30 MINUTES BEFORE MEALS AND AT BEDTIME NEEDED ONLY RARELY TAKE ONE TABLET BY MOUTH EVERY 6 HOURS 30 MINUTES BEFORE MEALS AND AT BEDTIME NEEDED ONLY RARELY SOLD: 04/12/2020 [facility] 0.125 mg 06/10/2019 12:00:00 AM EDT tablet 180 TAKE 1 TO 2 TABLETS BY MOUTH AT BEDTIME NEEDED TAKE 1 TO 2 TABLETS BY MOUTH AT BEDTIME NEEDED SOLD : 06/11/2019 [facility] 0.125 mg 06/10/2019 12:00:00 AM EDT tablet 180 TAKE 1 TO 2 TABLETS BY MOUTH AT BEDTIME NEEDED TAKE 1 TO 2 TABLETS BY MOUTH AT BEDTIME NEEDED SOLD : 11/26/2019 [facility] 50 mg 06/10/2019 12:00:00 AM EDT tablet 60 TAKE 1 TO 2 TABLETS BY MOUTH AT BEDTIME NEEDED ; CAN USE TO REPLACE ZOLPIDEM TAKE 1 TO 2 TABLETS BY MOUTH AT BEDTIME NEEDED ; CAN USE TO REPLACE ZOLPIDEM SOLD: 06/11/2019 [facility] Cyclobenzaprine hydrochloride 10 MG Oral Tablet Cyclobenzaprine HCl 10 MG Oral Tablet Cyclobenzaprine HCl 10 MG Oral Tablet 06/09/2019 12:00:00 AM EDT 1 aborted cyclobenzaprine hydrochlorid e 10 MG Oral Tablet [facility] Metoclopramide 10 MG Oral Tablet Metoclopramide HCl 10 MG Oral Tablet Metoclopramide HCl 10 MG Oral Tablet 06/09/2019 12:00:00 AM EDT active metoclopramide 10 MG Oral Tablet [facility] ([facility]) Trazodone Hydrochloride 50 MG Oral Tablet traZODone HC l 50 MG Oral Tablet traZODone HCl 50 MG Oral Tablet 06/09/2019 12:00:00 AM EDT aborted trazodone hydrochloride 50 MG Oral Tablet [facility] ([facility]) Metformin hydrochloride 500 MG Oral Tablet metFORMIN H Cl 500 MG Oral Tablet metFORMIN HCl 500 MG Oral Tablet 06/09/2019 12:00:00 AM EDT aborted metformin hydrochloride 500 MG Oral Tablet [facility] ([facility]) Bisoprolol Fumarate 5 MG Oral Tablet Bisoprolol Fumarate 5 M G Oral Tablet 06/09/2019 12:00:00 AM EDT aborted bisoprolol fumarate 5 MG Oral Tablet [facility] ([facility]) Losartan Potassium 25 MG Oral Tablet Losartan Potassium 25 M G Oral Tablet 06/09/2019 12:00:00 AM EDT active losartan potassium 25 MG Oral Tablet [facility] ([facility]) POLYETHYLENE GLYCOL 3350 142 MG/ML Oral Solution Polyethylene Glycol 3350 Oral Powder Polyethylene Glycol 3350 Oral Powder 06/09/2019 12:00:00 AM EDT active polyethylene glycol 3350 170 00 MG Powder for Oral Solution B[facility] ([facility]) Trazodone Hydrochloride 50 MG Oral Tablet traZODone (D ESYREL) 50 MG tablet traZODone (DESYREL) 50 MG tablet 06/09/2019 12:00:00 AM EDT aborted [facility] Pramipexole dihydrochloride 0.125 MG Ora l Tablet Pramipexole Dihydrochloride 0.125 MG Oral Tablet Pramipexole Dihydrochloride 0.125 MG Oral Tablet 06/08 12:00:00 AM EDT active pramipexole dihydrochloride 0.125 MG Oral Tablet [facility] ([facility]) 5-325 mg 06/05/2019 12:00:00 AM EST tablet 120 TAKE ONE TABLET BY MOUTH FOUR TIMES A DAY USE SPARINGLY MAXIMUM DAILY DOSE = 4 TAKE ONE TABLET BY MOUTH FOUR TIMES A DAY USE SPARINGLY MAXIMUM DAILY DOSE = 4 SOLD: 06/05/2019 [facility] Acetaminophen 325 MG / Oxycodone Hydroch loride 5 MG Oral Tablet [Percocet] Percocet 5-325 MG Oral Tablet Percocet 5-325 MG Oral Tablet 06/03/2019 12:00:00 AM EST 1 aborted acetamin ophen 325 MG / oxycodone hydrochloride 5 MG Oral Tablet [Percocet] [facility] ([facility]) 25 mg 05/30/2019 12:00:00 AM EST tablet 90 TAKE ONE TABLET BY MOUTH EVERY DAY TAKE ONE TABLET BY MOUTH EVERY DAY SOLD: 06/01/2019 [facility] 25 mg 05/30/2019 12:00:00 AM EST tablet 90 TAKE ONE TABLET BY MOUTH EVERY DAY TAKE ONE TABLET BY MOUTH EVERY DAY SOLD: 09/01/2019 [facility] Cyclobenzaprine hydrochloride 10 MG Oral Tablet Cyclobenzaprine HCl 10 MG Oral Tablet Cyclobenzaprine HCl 10 MG Oral Tablet 05/27/2019 12:00:00 AM EST 1 aborted cyclobenzaprine hydrochlorid e 10 MG Oral Tablet [facility] ([facility]) 10 mg 05/26/2019 12:00:00 AM EST tablet 60 TAKE ONE TABLET BY MOUTH TWO TIMES A DAY NEEDED TAKE ONE TABLET BY MOUTH TWO TIMES A DAY NEEDED INA [facility] 10 mg 05/26/2019 12:00:00 AM EST tablet 60 TAKE ONE TABLET BY MOUTH TWO TIMES A DAY NEEDED TAKE ONE TABLET BY MOUTH TWO TIMES A DAY NEEDED INA [facility] 10 mg 05/26/2019 12:00:00 AM EST tablet 60 TAKE ONE TABLET BY MOUTH TWO TIMES A DAY NEEDED TAKE ONE TABLET BY MOUTH TWO TIMES A DAY NEEDED INA [facility] 5-325 mg 05/07/2019 12:00:00 AM EST tablet 120 TAKE ONE TABLET BY MOUTH FOUR TIMES A DAY (TAKE SPARINGLY) MAXIMUM DAILY DOSE = 4 TAKE ONE TABLET BY MOUTH FOUR TIMES A DAY (TAKE SPARINGLY) MAXIMUM DAILY DOSE = 4 SOLD: 05/07/2019 [facility] Acetaminophen 325 MG / Oxycodone Hydroch loride 5 MG Oral Tablet [Percocet] Percocet 5-325 MG Oral Tablet Percocet 5-325 MG Oral Tablet 05/06/2019 12:00:00 AM EST 1 aborted acetamin ophen 325 MG / oxycodone hydrochloride 5 MG Oral Tablet [Percocet] [facility] ([facility]) 40 mg 04/28/2019 12:00:00 AM EST tablet 90 TAKE ONE TABLET BY MOUTH EVERY DAY TAKE ONE TABLET BY MOUTH EVERY DAY SOLD: 07/09/2019 [facility] 40 mg 04/28/2019 12:00:00 AM EST tablet 90 TAKE ONE TABLET BY MOUTH EVERY DAY TAKE ONE TABLET BY MOUTH EVERY DAY SOLD: 04/28/2019 [facility] Acetaminophen 325 MG / Oxycodone Hydroch loride 5 MG Oral Tablet [Percocet] Percocet 5-325 MG Oral Tablet Percocet 5-325 MG Oral Tablet 04/07/2019 12:00:00 AM EST 1 aborted acetamin ophen 325 MG / oxycodone hydrochloride 5 MG Oral Tablet [Percocet] [facility] ([facility]) 5-325 mg 04/07/2019 12:00:00 AM EST tablet 120 TAKE ONE TABLET BY MOUTH FOUR TIMES A DAY MAXIMUM DAILY DOSE = 4 TAKE ONE TABLET BY MOUTH FOUR TIMES A DA Y MAXIMUM DAILY DOSE = 4 SOLD: 04/09/2019 [facility] Metronidazole 500 MG Oral Tablet metroNIDAZOLE 500 MG Oral Tablet metroNIDAZOLE 500 MG Oral Tablet 03/31/2019 12:00:00 AM EST 1 aborted metronidazole 500 MG Oral Tablet [facility] ([facility]) 500 mg 03/31/2019 12:00:00 AM EST tablet 14 TAKE ONE TABLET BY MOUTH TWICE A DAY TAKE ONE TABLET BY MOUTH TWICE A DAY SOLD: 03/31/2019 [facility] 150 mg 03/28/2019 12:00:00 AM EST tablet 1 TAKE 1 TABLET BY MOUTH ONCE TAKE 1 TABLET BY MOUTH ONCE SOLD: 03/28/2019 [facility] Fluconazole 150 MG Oral Tablet Fluconazole 150 MG Oral Table t 03/28/2019 12:00:00 AM EST aborted flucona zole 150 MG Oral Tablet [facility] ([facility]) 500 mg 03/21/2019 12:00:00 AM EST tablet 3 TAKE ONE TABLET BY MOUTH EVERY NIGHT AT BEDTIME TAKE ONE TABLET BY MOUTH EVERY NIGHT AT BEDTIME SOLD: 03/23/2019 [facility] 0.25 mg/2 mL 03/21/2019 12:00:00 AM EST suspension for nebul ization 120 INHALE ONE VIAL VIA NEBULIZER TWO TIMES A DAY INHALE ONE VIAL VIA NEBULIZER TWO TIMES A DAY SOLD: 03/21/2019 [facility] 20 mg 03/21/2019 12:00:00 AM EST tablet 6 TAKE TWO TABLETS BY MOUTH EVERY DAY TAKE TWO TABLETS BY MOUTH EVERY DAY SOLD: 03/21/2019 [facility] 0.5 mg-3 mg(2.5 mg base)/3 mL 03/21/2019 12:00:0 0 AM EST solution for nebulization 225 INHALE ONE VIAL VIA NEBULIZER THREE TIMES A DAY NEEDED FOR SHORTNESS OF BREATH INHALE ONE VIAL VIA NEBULIZER THREE TIME S A DAY NEEDED FOR SHORTNESS OF BREATH SOLD: 03/21/2019 [facility] 500 mg 03/11/2019 12:00:00 AM EST tablet 270 TAKE ONE TABLET BY MOUTH EVERY MORNING AND INCREASE TO 2 TABLETS BEFORE DINNER TAKE ONE TABLET BY MOUTH EVERY MORNING AND INCREASE TO 2 TABLETS BEFORE DINNER SOLD: 09/10/2019 [facility] 10 mg 03/11/2019 12:00:00 AM EST tablet extended release 24hr 180 TAKE ONE TABLET BY MOUTH TWICE A DAY TAKE ONE TABLET BY MOUTH TWICE A DAY SOLD: 06/23/2019 [facility] 10 mg 03/11/2019 12:00:00 AM EST tablet extended release 24hr 180 TAKE ONE TABLET BY MOUTH TWICE A DAY TAKE ONE TABLET BY MOUTH TWICE A DAY SOLD: 03/11/2019 [facility] Metformin hydrochloride 500 MG Oral Tablet METFORMIN HCL 03/11/2019 12:00:00 AM EST tablet 270 TAKE ONE TABLET BY MOUTH EVERY MORNING AND INCREASE TO 2 TABLETS BEFORE DINNER TAKE ONE TABLET BY MOUTH EVERY MORNING A ND INCREASE TO 2 TABLETS BEFORE DINNER SOLD: 12/03/2019 [facility] 10 mg 03/11/2019 12:00:00 AM EST tablet extended release 24hr 180 TAKE ONE TABLET BY MOUTH TWICE A DAY TAKE ONE TABLET BY MOUTH TWICE A DAY SOLD: 09/01/2019 [facility] 500 mg 03/11/2019 12:00:00 AM EST tablet 270 TAKE ONE TABLET BY MOUTH EVERY MORNING AND INCREASE TO 2 TABLETS BEFORE DINNER TAKE ONE TABLET BY MOUTH EVERY MORNING AND INCREASE TO 2 TABLETS BEFORE DINNER SOLD: 06/07/2019 [facility] 10 mg 03/11/2019 12:00:00 AM EST tablet extended release 24hr 180 TAKE ONE TABLET BY MOUTH TWICE A DAY TAKE ONE TABLET BY MOUTH TWICE A DAY SOLD: 12/03/2019 [facility] 500 mg 03/11/2019 12:00:00 AM EST tablet 270 TAKE ONE TABLET BY MOUTH EVERY MORNING AND INCREASE TO 2 TABLETS BEFORE DINNER TAKE ONE TABLET BY MOUTH EVERY MORNING AND INCREASE TO 2 TABLETS BEFORE DINNER SOLD: 03/11/2019 [facility] 5-325 mg 03/08/2019 12:00:00 AM EST tablet 120 TAKE ONE TABLET BY MOUTH FOUR TIMES A DAY MAXIMUM DAILY DOSE = 4 TABLETS TAKE ONE TABLET BY MOUTH FOUR TIMES A DAY MAXIMUM DAILY DOSE = 4 TABLETS SOLD: 03/09/2019 [facility] Acetaminophen 325 MG / Oxycodone Hydroch loride 5 MG Oral Tablet [Percocet] Percocet 5-325 MG Oral Tablet Percocet 5-325 MG Oral Tablet 03/07/2019 12:00:00 AM EST 1 aborted acetamin ophen 325 MG / oxycodone hydrochloride 5 MG Oral Tablet [Percocet] [facility] ([facility]) Cyclobenzaprine hydrochloride 10 MG Oral Tablet CYCLOBENZAPR INE HCL 02/20/2019 12:00:00 AM EST tablet 60 TAKE ONE TABLET BY MOUTH TWICE A DAY NEEDED TAKE ONE TABLET BY MOUTH TWICE A DAY NEEDED SOLD: 03/23/2019 [facility] Cyclobenzaprine hydrochloride 10 MG Oral Tablet Cyclobenzaprine HCl 10 MG Oral Tablet Cyclobenzaprine HCl 10 MG Oral Tablet 02/20/2019 12:00:00 AM EST 1 aborted cyclobenzaprine hydrochlorid e 10 MG Oral Tablet [facility] ([facility]) 10 mg 02/20/2019 12:00:00 AM EST tablet 60 TAKE ONE TABLET BY MOUTH TWICE A DAY NEEDED TAKE ONE TABLET BY MOUTH TWICE A DAY NEEDED SOLD: 04/22/2019 [facility] Cyclobenzaprine hydrochloride 10 MG Oral Tablet CYCLOBENZAPR INE HCL 02/20/2019 12:00:00 AM EST tablet 60 TAKE ONE TABLET BY MOUTH TWICE A DAY NEEDED TAKE ONE TABLET BY MOUTH TWICE A DAY NEEDED SOLD: 02/21/2019 [facility] 500 mg 02/13/2019 12:00:00 AM EST tablet 20 TAKE ONE TABLET BY MOUTH TWICE A DAY TAKE ONE TABLET BY MOUTH TWICE A DAY SOLD: 02/13/2019 [facility] Cefuroxime 500 MG Oral Tablet Cefuroxime Axetil 500 MG Oral Tablet Cefuroxime Axetil 500 MG Oral Tablet 02/13/2019 12:00:00 AM EST 1 aborted cefuroxime 500 MG Oral Tablet [facility] ([facility]) Prednisone 10 MG Oral Tablet predniSONE 10 MG Oral Tab let predniSONE 10 MG Oral Tablet 02/13/2019 12:00:00 AM EST aborted prednisone 10 MG Oral Tablet [facility] ([facility]) 10 mg 02/13/2019 12:00:00 AM EST tablet 18 TAKE 3 TABLETS BY MOUTH ONCE DAILY FOR 3 DAYS THEN 2 TABLETS ONCE DAILY FOR 3 DAYS THEN 1 TABLET ONCE DAILY FOR 3 DAYS TAKE 3 TABLETS BY MOUTH ONCE DAILY FOR 3 DAYS THEN 2 TABLETS ONCE DAILY FOR 3 DAYS THEN 1 TABLET ONCE DAILY FOR 3 DAYS SOLD: 02/13/2019 [facility] Acetaminophen 325 MG / Oxycodone Hydroch loride 5 MG Oral Tablet [Percocet] Percocet 5-325 MG Oral Tablet Percocet 5-325 MG Oral Tablet 02/07/2019 12:00:00 AM EST 1 aborted acetamin ophen 325 MG / oxycodone hydrochloride 5 MG Oral Tablet [Percocet] [facility] ([facility]) Fluticasone Propionate 50 MCG/ACT Nasal Suspension Flu ticasone Propionate 50 MCG/ACT Nasal Suspension 01/30/2019 12:00:00 AM EDT aborted fluticasone propionate 0.05 MG/ACTUAT Metered Dose Nasal [place] [facility] ([facility]) Prednisone 10 MG Oral Tablet predniSONE 10 MG Oral Tab let predniSONE 10 MG Oral Tablet 01/30/2019 12:00:00 AM EDT aborted prednisone 10 MG Oral Tablet [facility] ([facility]) repaglinide 1 MG Oral Tablet [Prandin] Prandin 1 MG Or al Tablet Prandin 1 MG Oral Tablet 01/27/2019 12:00:00 AM EDT active repaglinide 1 MG Oral Tablet [Prandin] [facility] ([facility]) 50 mcg 01/27/2019 12:00:00 AM EDT tablet 90 TAKE ONE TABLET BY MOUTH EVERY DAY TAKE ONE TABLET BY MOUTH EVERY DAY SOLD: 04/28/2019 [facility] 50 mcg 01/27/2019 12:00:00 AM EDT tablet 90 TAKE ONE TABLET BY MOUTH EVERY DAY TAKE ONE TABLET BY MOUTH EVERY DAY SOLD: 07/09/2019 [facility] 30 mg 01/25/2019 12:00:00 AM EDT capsule,delayed release (DR/EC) 90 TAKE ONE CAPSULE BY MOUTH EVERY DAY TAKE ONE CAPSULE BY MOUTH EVERY DAY SOLD: 07/22/2019 [facility] 30 mg 01/25/2019 12:00:00 AM EDT capsule,delayed release (DR/EC) 90 TAKE ONE CAPSULE BY MOUTH EVERY DAY TAKE ONE CAPSULE BY MOUTH EVERY DAY SOLD: 04/28/2019 [facility] 75 mg 01/17/2019 12:00:00 AM EDT capsule,extended releas e 24hr 90 TAKE ONE CAPSULE BY MOUTH EVERY DAY TAKE ONE CAPSULE BY MOUTH EVERY DAY SOLD: 07/22/2019 [facility] 75 mg 01/17/2019 12:00:00 AM EDT capsule,extended releas e 24hr 90 TAKE ONE CAPSULE BY MOUTH EVERY DAY TAKE ONE CAPSULE BY MOUTH EVERY DAY SOLD: 04/22/2019 [facility] 200 ACTUAT Albuterol 0.09 MG/ACTUAT Mete red Dose Inhaler [Ventolin] Ventolin HFA 108 (90 Base) MCG/ACT Inhalation Aerosol Solution Ventolin HFA 108 (90 Base) MCG/ACT Inhalation Aerosol Solution 01/01/2019 12:00:00 AM EDT 1 aborted [id number] 200 ACTUAT albuterol 0.09 MG/ACTUAT Metered Dose Inhaler [Ventolin] [facility] ([facility]) glipiZIDE XL 10MG Oral Tablet Extended Release 24 Hour glipiZIDE XL 10MG Oral Tablet Extended Release 24 Hour 12/03/2018 12:00:00 AM EDT 1 aborted glipiZIDE XL [facility] ([facility]) 24 HR venlafaxine 75 MG Extended Release Oral Capsule Venlafaxine HCl ER 75MG Oral Capsule Extended Release 24 Hour Venlafaxine HCl ER 75MG Oral Capsule Extended Release 24 Hour 12/03/2018 12:00:00 AM EDT 1 aborted 24 HR venlafaxine 75 MG Extended Release Oral Capsule [facility] ([facility]) Metformin hydrochloride 500 MG Oral Tablet metFORMIN H Cl 500MG Oral Tablet metFORMIN HCl 500MG Oral Tablet 12/03/2018 12:00:00 AM EDT aborted metformin hydrochloride 500 MG Oral Tablet [facility] ([facility]) Furosemide 40 MG Oral Tablet Furosemide 40MG Oral Tabl et Furosemide 40MG Oral Tablet 12/03/2018 12:00:00 AM EDT 1 aborted furosemide 40 MG [facility] 10MG Oral Tablet Disintegrating [facility] [place] tonin 10MG Oral Tablet Disintegrating 12/03/2018 12:00:00 AM EDT 1 aborted [facility] Melatonin [facility] ([facility]) Levothyroxine Sodium 0.05 MG Oral Tablet Levothyroxine Sodium 50MCG Oral Tablet Levothyroxine Sodium 50MCG Oral Tablet 12/03/2018 12:00:00 AM EDT 1 aborted levothyroxine sodium 0.05 MG Ora l Tablet [facility] ([facility]) lansoprazole 30 MG Delayed Release Oral Capsule Lansoprazole 30MG Oral Capsule Delayed Release Lansoprazole 30MG Oral Capsule Delayed Release 019 12:00:00 AM EDT 1 aborted lansoprazole 30 MG Delayed Release Oral Capsule [facility] ([facility]) atorvastatin 40 MG Oral Tablet Atorvastatin Calcium 40 MG Oral Tablet Atorvastatin Calcium 40MG Oral Tablet 12/03/2018 12:00:00 AM EDT 1 aborted atorvastatin 40 MG Oral Tablet G REENWAY [facility] Zolpidem tartrate 5 MG Oral Tablet Zolpidem Tartrate 5 MG Oral Tablet Zolpidem Tartrate 5MG Oral Tablet 11/12/2018 12:00:00 AM EDT 1 aborted zolpidem tartrate 5 MG Oral Tablet [facility] ([facility]) 5 mg 11/12/2018 12:00:00 AM EDT tablet 30 TAKE ONE TABLET BY MOUTH AT BEDTIME NEEDED * MAXIMUM DAILY DOSE = 1 TAKE ONE TABLET BY MOUTH AT BEDTIME NEEDED * MAXIMUM DAILY DOSE = 1 SOLD: 03/03/2019 [facility] 5 mg 11/12/2018 12:00:00 AM EDT tablet 30 TAKE ONE TABLET BY MOUTH AT BEDTIME NEEDED * MAXIMUM DAILY DOSE = 1 TAKE ONE TABLET BY MOUTH AT BEDTIME NEEDED * MAXIMUM DAILY DOSE = 1 SOLD: 04/09/2019 [facility] 5 mg 11/12/2018 12:00:00 AM EDT tablet 30 TAKE ONE TABLET BY MOUTH AT BEDTIME NEEDED * MAXIMUM DAILY DOSE = 1 TAKE ONE TABLET BY MOUTH AT BEDTIME NEEDED * MAXIMUM DAILY DOSE = 1 SOLD: 05/07/2019 [facility] 5 mg 11/12/2018 12:00:00 AM EDT tablet 30 TAKE ONE TABLET BY MOUTH AT BEDTIME NEEDED * MAXIMUM DAILY DOSE = 1 TAKE ONE TABLET BY MOUTH AT BEDTIME NEEDED * MAXIMUM DAILY DOSE = 1 SOLD: 03/09/2019 [facility] Cyclobenzaprine hydrochloride 10 MG Oral Tablet Cyclobenzaprine HCl 10MG Oral Tablet Cyclobenzaprine HCl 10MG Oral Tablet 10/28/2018 12:00:00 AM EDT 1 aborted cyclobenzaprine hydrochlorid e 10 MG Oral Tablet [facility] ([facility]) 20 mg 10/18/2018 12:00:00 AM EDT tablet 180 TAKE TWO TABLETS BY MOUTH EVERY DAY TAKE TWO TABLETS BY MOUTH EVERY DAY SOLD: 04/28/2019 [facility] 20 mg 10/18/2018 12:00:00 AM EDT tablet 180 TAKE TWO TABLETS BY MOUTH EVERY DAY TAKE TWO TABLETS BY MOUTH EVERY DAY SOLD: 07/09/2019 [facility] 5 mg 10/08/2018 12:00:00 AM EDT tablet 45 TAKE 1/2 TABLET BY MOUTH ONCE DAILY TAKE 1/2 TABLET BY MOUTH ONCE DAILY SOLD: 07/22/2019 [facility] 5 mg 10/08/2018 12:00:00 AM EDT tablet 45 TAKE 1/2 TABLET BY MOUTH ONCE DAILY TAKE 1/2 TABLET BY MOUTH ONCE DAILY SOLD: 04/22/2019 [facility] 1,250 mcg (50,000 unit) 09/13/2018 12:00:00 AM EDT capsule 3 TAKE 1 CAPSULE BY MOUTH ONCE A MONTH TAKE 1 CAPSULE BY MOUTH ONCE A MONTH SOLD: 05/26/2019 [facility] 50,000 unit 09/13/2018 12:00:00 AM EDT capsule 3 TAKE 1 CAPSULE BY MOUTH ONCE A MONTH TAKE 1 CAPSULE BY MOUTH ONCE A MONTH SOLD: 02/28/2019 [facility] D3-50 [id number] Oral Capsule D3-50 [id number] Oral Capsule 12:00:00 AM EDT 1 aborted D3-50 BOB ([facility]) rivaroxaban 20 MG Oral Tablet [Xarelto] Xarelto 20MG O ral Tablet Xarelto 20MG Oral Tablet 08/14/2018 12:00:00 AM EDT 1 aborte d rivaroxaban 20 MG Oral Tablet [Xarelto] BOB ([facility]) Estradiol 0.1 MG/ML Vaginal Cream Estradiol 0.1MG/GM V aginal Cream Estradiol 0.1MG/GM Vaginal Cream 08/14/2018 12:00:00 AM EDT aborted estradiol 0.1 MG/ML Vaginal Cream CLYDE ([facility]) silodosin 8 MG Oral Capsule [Rapaflo] Rapaflo 8MG Oral Capsule Rapaflo 8MG Oral Capsule 08/14/2018 12:00:00 AM EDT aborted silodosin 8 MG Oral Capsule [Rapaflo] CLYDE ([facility]) BLOOD SUGAR DIAGNOSTIC 08/14/2018 12:00:00 AM EDT strip 200 DIRECTED, TEST 3 TIMES A DAY AND NEEDED DIRECTED, TEST 3 TIMES A DAY AND NEEDED SOLD: 03/11/2019 [facility] 90 mcg/actuation 08/14/2018 12:00:00 AM EDT HFA aerosol inha ler 18 INHALE TWO PUFFS BY MOUTH FOUR TIMES A DAY NEEDED FOR BREATHING INHALE TWO PUFFS BY MOUTH FOUR TIMES A DAY NEEDED FOR BREATHING SOLD: 04/10/2019 [facility] 10 mg 08/14/2018 12:00:00 AM EDT tablet 20 TAKE ONE TABLET BY MOUTH EVERY 6 HOURS, TAKE 30 MINUTES BEFORE MEALS AND AT BEDTIME, USE NEEDED, ONLY RARELY TAKE ONE TABLET BY MOUTH EVERY 6 HOURS, TAKE 30 MINUTES BEFORE MEALS AND AT BEDTIME, USE NEEDED, ONLY RARELY SOLD: 06/07/2019 [facility] Pramipexole dihydrochloride 0.125 MG Ora l Tablet Pramipexole Dihydrochloride 0.125MG Oral Tablet Pramipexole Dihydrochloride 0.125MG Oral Tablet 2018 12:00:00 AM EDT 1 aborted pramipexole dihydrochloride 0.125 MG Oral Tablet BOB ([facility]) OneTouch Ultra Blue In Vitro Strip OneTouch Ultra Blue In Vi tro Strip 08/14/2018 12:00:00 AM EDT aborted OneTou Ultra Blue BOB ([facility]) Metoclopramide 10 MG Oral Tablet Metoclopramide HCl 10 MG Oral Tablet Metoclopramide HCl 10MG Oral Tablet 08/14/2018 12:00:00 AM EDT aborted metoclopramide 10 MG Oral Tablet BOB ([facility]) POLYETHYLENE GLYCOL 3350 142 MG/ML Oral Solution Polyethylene Glycol 3350 Oral Powder Polyethylene Glycol 3350 Oral Powder 08/14/2018 12:00:00 AM EDT aborted polyethylene glycol 3350 170 00 MG Powder for Oral Solution BOB ([facility]) Bisoprolol Fumarate 5 MG Oral Tablet Bisoprolol Fumara te 5MG Oral Tablet Bisoprolol Fumarate 5MG Oral Tablet 08/14/2018 12:00:00 AM EDT aborted bisoprolol fumarate 5 MG Oral Ta blet BOB ([facility]) Losartan Potassium 25 MG Oral Tablet Losartan Potassiu m 25MG Oral Tablet Losartan Potassium 25MG Oral Tablet 08/14/2018 12:00:00 AM EDT aborted losartan potassium 25 MG Oral Ta blet BOB ([facility]) Losartan Potassium 25 MG Oral Tablet LOSARTAN POTASSIUM 12/2018 12:00:00 AM EDT tablet 90 TAKE ONE TABLET BY MOUTH ESTRELAL DAY TAKE ONE TABLET BY MOUTH EVERY DAY SOLD: 04/10/2019 [facility] 0.01 % (0.1 mg/gram) 06/06/2018 12:00:00 AM EST cream 42 APPLY 1/4 GRAM TO PERIURETHRAL AREA DAILY APPLY 1/4 GRAM TO PERIURETHRAL AREA DAILY SOLD: 06/07/2019 [facility] FIBER PO 05/28/2018 12:00:00 AM EST aborted FIBER POWD [facility] Compressor/Nebulizer Miscellaneous Compressor/Nebulizer Misc ellaneous 11/10/2015 12:00:00 AM EDT aborted Compre ssor/Nebulizer BOB ([facility]) Losartan Potassium 25 MG Oral Tablet losartan (COZAAR) 25 MG tablet losartan (COZAAR) 25 MG tablet 25 mg Oral aborted Ta ke 25 mg by mouth daily [facility] Insurance Providers Payer name Policy type / Coverage type Policy ID Covered libertarian ID Covered libertarian's relationship to nino Policy Nino Plan Information MEDICARE [id number] BCBS FEDERAL EMPLOYEE PROGRAM [id number] SELF PAY BLUE CROSS FED EMPLOYEE PLAN [id number] SPO [id number] MEDICARE PART A [id number] SP [id number] MEDICARE C [id number] S [id number] BC BS [place] FED[place] B [id number] S [id number] EXCELLUS BCBS [id number] MEDICARE [id number] MEDICARE [id number] Emili [id number] EXCELLUS BCBS [id number] Spo [id number] [place] Other 0 Family Depend ent [place] 0 Medicare Part A of [place] Other 0 Self 0 [place] Other 0 Family Depend ent Lee Ann [place] 0 Medicare Part A of [place] Other 0 Self 0 [place] Other 0 Family Depend ent Lee Ann Frank 0 Medicare Part A of [place] Other 0 Self 0 [place] Other 0 Family Depend ent Lee Ann Frank 0 Medicare Part A of [place] Other 0 Self 0 SELF PAY BLUE CROSS FED EMPLOYEE PLAN [id number] SPO [id number] MEDICARE PART A [id number] SP [id number] SELF PAY [place] Other 0 Family Depend ent [place] 0 Medicare Part [place] of [place] Other 0 Self 0 [place] Other 0 Family Depend ent [place] 0 Medicare Part [place] of [place] Other 0 Self 0 [place] Other 0 Family Depend ent [place] 0 Medicare Part [place] of [place] Other 0 Self 0 [place] Other 0 Family Depend ent [place] 0 Medicare Part A of [place] Other 0 Self 0 SELF PAY BLUE CROSS FED EMPLOYEE PLAN [id number] SPO [id number] MEDICARE PART A [id number] SP [id number] [place] Other 0 Family Depend ent [place] 0 Medicare Part A of [place] Other 0 Self 0 SELF PAY BLUE CROSS FED EMPLOYEE PLAN [id number] SPO [id number] MEDICARE PART A [id number] SP [id number] [place] Other 0 Famil y Dependent Lee Ann Frank 0 Medicare Part B of [place] Other 0 Se lf 0 [place] Other 0 Family Depend ent Lee Ann Frank 0 Medicare Part A of [place] Other 0 Self 0 [place] Other 0 Family Depend ent Lee Ann Frank 0 Medicare Part [place] of [place] Other 0 Self 0 [place] Other 0 Family Depend ent Lee Ann Frank 0 Medicare Part [place] of [place] Other 0 Self 0 [place] Other 0 Family Depend ent [place] 0 Medicare Part A of [place] Other 0 Self 0 BCBS CN[place] Medigap Part B [id number] Family Dependent [id number] BCBS Federal Medigap Part B [id number] Family Dependent [id number] Medicare Medicare Primary [id number] Self [id number] [place] Other 0 Family Depend ent Lee Ann Frank 0 Medicare Part [place] of [place] Other 0 Self 0 [place] Other 0 Family Depend ent Lee Ann Frank 0 Medicare Part A [place] Other 0 Self 0 MEDICARE PI PI [place] Other 0 Family Depend ent [place] 0 Medicare Part [place] of [place] Other 0 Self 0 SELF PAY BLUE CROSS FED EMPLOYEE PLAN [id number] SPO [id number] MEDICARE PART A [id number] SP [id number] [place] Other 0 Family Depend ent [place] 0 Medicare Part [place] of [place] Other 0 Self 0 SELF PAY BLUE CROSS FED EMPLOYEE PLAN [id number] SPO [id number] MEDICARE PART A [id number] SP [id number] SELF PAY BLUE CROSS FED EMPLOYEE PLAN [id number] SPO [id number] MEDICARE PART A [id number] SP [id number] BCBS CN[place] Medigap Part B [id number] Family Dependent [id number] BCBS Federal Medigap Part B [id number] Family Dependent [id number] Medicare Medicare Primary [id number] Self 6 [id number] BCBS Federal Plan Medigap Part B [id number] Family Dependent [id number] Medicare Natl Gov't Servi Medicare Primary [id number] Self [id number] BC/BS Federal [id number] Blue Cross/Shield [id number] Medicare [id number] Medicare [id number] Medicare [id number] Medicare [id number] A MEDICARE [id number] SP [id number] BCBS CNY Medigap Part B [id number] Family Dependent [id number] BCBS Federal Medigap Part B [id number] Family Dependent [id number] Medicare Medicare Primary [id number] Self [id number] [place] Other 0 Family Depend ent Lee Ann Frank 0 Medicare Part [place] of [place] Other 0 Self 0 [place] Other 0 Family Depend ent [place] 0 Medicare Part [place] Other 0 Self 0 MEDICARE [id number] SP [id number] A [place] Other 0 Family Depend ent [place] 0 Medicare Part [place] of [place] Other 0 Self 0 EXCELLUS BLUE CROSS BLUE SHIELD HEA [id number] S [id number] MEDICARE MCA [id number] S [id number] MEDICARE MCA [id number] S [id number] [place] Other 0 Family Depend ent Lee Ann Frank 0 Medicare Part A of [place] Other 0 Self 0 BCBS FEDERAL EMPLOYEE PROGRAM [id number] HU2 [id number] EXCELLUS BCBS PI PI MEDICARE [id number] Emili [id number] A BS Federal Medigap Part B [id number] Family Dependent [id number] Medicare [facility] Medicare Primary [id number] Self [id number] Blue Shield Federal Medigap Part B [id number] Family Dependen t [id number] [place] Medicare Primary [id number] Self [id number] BCBS CN[place] Medigap Part B [id number] Family Dependent [id number] BCBS Federal Medigap Part B [id number] Family Dependent [id number] Medicare Medicare Primary [id number] Self [id number] MEDICARE [id number] SP [id number] BLUE CROSS FED EMPLOYEE PLAN [id number] SPO [id number] BC BS [place] FEDERAL B [id number] S [id number] MEDICARE C [id number] S [id number] A [place] Other 0 Family Depend ent [place] 0 Medicare Part [place] of [place] Other 0 Self 0 [place] Other 0 Family Depend ent Lee Ann Frank 0 Medicare Part A of [place] Other 0 Self 0 MEDICARE [id number] SP [id number] A BCBS Federal Plan Medigap Part B [id number] Family Dependent [id number] Medicare Natl Gov't Servi Medicare Primary [id number] Self [id number] BCBS Federal Plan Medigap Part B [id number] Family Dependent [id number] Medicare Natl Gov't Servi Medicare Primary [id number] Self [id number] Medicare Part A of [place] Other 0 Self 0 [place] Other 0 Family Depend ent [place] 0 Medicare Part [place] of [place] Other 0 Self 0 [place] Other 0 Family Depend ent [place] 0 Medicare Part [place] of [place] Other 0 Self 0 [place] Other 0 Family Depend ent [place] Ann [place] 0 Medicare Part [place] of [place] Other 0 Self 0 [place] Other 0 Family Depend ent Lee Ann Frank 0 Medicare Part A of [place] Other 0 Self 0 [place] Other 0 Family Depend ent [place] 0 Medicare Part [place] of [place] Other 0 Self 0 [place] Other 0 Family Depend ent [place] 0 Medicare Part [place] of [place] Other 0 Self 0 [place] Other 0 Family Depend ent Lee Ann Frank 0 Medicare Part A of [place] Other 0 Self 0 [place] Other 0 Family Depend ent [place] 0 Medicare Part [place] of [place] Other 0 Self 0 [place] Other 0 Family Depend ent Lee Ann Frank 0 Medicare Part [place] of [place] Other 0 Self 0 [place] Other 0 Family Depend ent [place] Ann [place] 0 Medicare Part [place] of [place] Other 0 Self 0 [place] Other 0 Family Depend ent Lee Ann Frank 0 Medicare Part [place] of [place] Other 0 Self 0 [place] Other 0 Family Depend ent Lee Ann Frank 0 Medicare Part A of [place] Other 0 Self 0 [place] Other 0 Family Depend ent Lee Ann Frank 0 BCBS FEDERAL EMPLOYEE PROGRAM [id number] HU2 [id number] BCBS Federal Plan Medigap Part B [id number] Family Dependent [id number] Medicare Natl Gov't Servi Medicare Primary [id number] Self [id number] BCBS Federal Medigap Part B [id number] Self [id number] Medicare - NGS Medicare Primary [id number] Self [id number] BCBS CN[place] Medigap Part B [id number] Family Dependent [id number] BCBS Federal Medigap Part B [id number] Family Dependent [id number] Medicare Medicare Primary [id number] Self [id number] BCBS CNY Medigap Part B [id number] Family Dependent [id number] BCBS Federal Medigap Part B [id number] Family Dependent [id number] Medicare Medicare Primary [id number] Self 11 [id number] BCBS Federal Plan Medigap Part B [id number] Family Dependent [id number] Medicare Natl Gov't Servi Medicare Primary [id number] Self [id number] BCBS Federal Plan Medigap Part B [id number] Family Dependent [id number] Medicare Natl Gov't Servi Medicare Primary [id number] Self [id number] EXCELLUS BCBS FEDERAL [id number] HU2 [id number] BCBS CNY Medigap Part B [id number] Family Dependent [id number] Medicare Medicare Primary [id number] Self [id number] BCBS Federal Plan Medigap Part B [id number] Family Dependent [id number] Medicare Natl Gov't Servi Medicare Primary [id number] Self [id number] BCBS Federal Plan Medigap Part B [id number] Family Dependent [id number] Medicare Natl Gov't Servi Medicare Primary [id number] Self [id number] EXCELLUS BCBS FEDERAL [id number] HU2 [id number] MEDICARE [id number] SP [id number] A EXCELLUS BCBS FEDERAL [id number] HU2 [id number] BS Federal Medigap Part B [id number] Family Dependent [id number] [place] Primary [id number] Self [id number] BS Federal Medigap Part B [id number] Family Dependent [id number] [place] Medicare Primary [id number] Self [id number] BCBS Federal Plan Medigap Part B [id number] Family Dependent [id number] Medicare Natl Gov't Servi Medicare Primary [id number] Self [id number] EXCELLUS BCBS FEDERAL [id number] HU2 [id number] MEDICARE [id number] SP [id number] A MEDICARE [id number] SP [id number] A BCBS Federal Plan Medigap Part B Family Dependent Medicare Natl Gov't Servi Medicare Primary Self Blue Shield Federal Medigap Part B Family Dependen t [place] Medicare Primary Self BLUE CROSS FED EMPLOYEE PLAN [id number] SPO [id number] EXCELLUS BCBS [id number] Spo [id number] BS Federal [place]io[place] owing[place] Part B Family Dependent [place] Medicare Primary Self BC BS [place] [facility] B [id number] P [id number] BC/BS U/W - Federal Plans Medigap Part B Family De pendent BC/BS Of [place] owing[place] Part B [place] Medicare Primary Self BC BS [place] [facility] [id number] HU2 [id number] SELF PAY 2 UNAVAILABLE 1 UNAVAILA BLE BC BLUE CARD 1 [id number] MEDICARE 4 [id number] 1 [id number] A MEDICARE 4 [id number] 1 [id number] A [facility] 2 [id number] BLUE CROSS O [id number] SP [id number] MEDICARE PART A M [id number] S [id number] BLUE CROSS O [id number] SP [id number] MEDICARE M [id number] S [id number] A MEDICARE TASHA M [id number] S [id number] BLUE CROSS O [id number] SP [id number] BLUE CROSS [id number] SPO [id number] A Problems, Conditions, and Diagnoses Code Display Name Description Problem Type Effective Dates Data Source(s) N17.9 MAK (acute kidney injury) MAK (acute kidney injury) [id number] 440796 03/15/2020 12:00:00 AM [facility] [address] Hypothyroidism Hypothyroidism Problem 02/10/2020 12:00: 00 AM EST BOB ([facility]) 31040 Hypothyroidism Hypothyroidism Problem 02/10/2020 12:00: 00 AM EST [employer] ([facility]) [id number] Essential hypertension Essential hypertension Problem 06/12/2019 12:00:00 AM EDT MEDKENDAL ([facility], ) 307.42 Primary Insomnia Primary Insomnia Problem 06/09/2019 12 :00:00 AM EDT BOB ([facility]) 307.42 Primary Insomnia Primary Insomnia Problem 06/09/2019 12 :00:00 AM EDT BOB ([facility]) 307.42 Primary Insomnia Primary Insomnia Problem 06/09/2019 12 :00:00 AM EDT BOB ([facility]) 307.42 Primary Insomnia Primary Insomnia Problem 06/09/2019 12 :00:00 AM EDT BOB ([facility]) 307.42 Primary Insomnia Primary Insomnia Problem 06/09/2019 12 :00:00 AM EDT BOB ([facility]) 307.42 Primary Insomnia Primary Insomnia Problem 06/09/2019 12 :00:00 AM EDT BOB ([facility]) 307.42 Primary Insomnia Primary Insomnia Problem 06/09/2019 12 :00:00 AM EDT BOB ([facility]) E78.5 Hyperlipidemia, unspecified E78.5 - Hyperlipidemia, un specified Diagnosis 03/30/2020 09:56:00 AM [facility] I10 Essential (primary) hypertension I10 - Essential (primary) hypertension Diagnosis 03/30/2020 09:56:00 AM [facility] E11.69 Type 2 diabetes mellitus with other spec ified complication E11.69 - Type 2 diabetes mellitus with other specified complication Diagnosis 03/30/2020 09:56:[facility] 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 Atherosclerotic heart disease of [place] Diagnosis 03/15/2020 08:06:24 AM [facility] I73.9 Peripheral vascular disease, unspecified Peripheral vascular disease, unspecified Diagnosis 03/04/2020 12:58:07 PM [facility] F17.200 Nicotine dependence, unspecified, uncomp licated Nicotine dependence, unspecified, uncomp Diagnosis 03/04/2020 12:58:07 PM [facility] E78.00 Pure hypercholesterolemia, unspecified P ure hypercholesterolemia, unspecified Diagnosis 03/04/2020 12:58:07 PM [facility] 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 Occlusion and stenosis of bilateral zavala Diagnosis 03/04/2020 12:58:07 PM [facility] I42.9 Cardiomyopathy, unspecified Cardiomyopathy, unspecifie d Diagnosis 03/04/2020 12:58:07 PM [facility] I48.91 Unspecified atrial fibrillation Unspecified atri al fibrillation Diagnosis 03/04/2020 12:58:07 PM EST [facility] I10 Essential (primary) hypertension Essential (primary) h ypertension Diagnosis 03/04/2020 12:58:07 PM EST [facility] I44.7 Left bundle-branch block, unspecified Le ft bundle-branch block, unspecified Diagnosis 03/04/2020 12:58:07 PM EST [facility] E11.9 Type 2 diabetes mellitus without complic ations Type 2 diabetes mellitus without complic Diagnosis 03/04/2020 12:58:07 PM EST [facility] I50.20 Unspecified systolic (congestive) heart failure Unspecified systolic (congestive) heart Diagnosis 09/02/2019 01:19:19 PM EDT [facility] N76.0 Acute vaginitis N76.0 - Acute vaginitis Diagnosis 0 07/21/2019 08:06:00 AM EDT [place] [facility] N39.0 Urinary tract infection, site not specif ied N39.0 - Urinary tract infection, site not specified Diagnosis 07/21/2019 08:06:00 AM EDT [employer] Surgeries/Procedures Procedure Description Date Indications Data Source(s) POCT AMB EKG POCT AMB EKG Routine 03/15/2020 10:17 AM EST Coronary artery disease involving [place] coronary artery of [place] heart with angina pectoris 03/15/2020 03:17:00 PM EST Coronary cat ry disease involving [place] coronary artery of [place] heart with angina pectoris [facility] Coronary artery disease involving [place] coronary artery of [place] heart with angina pectoris CREATINE KINASE MB FRACTION ONLY CKMB Routine 03/11/2020 3:34 AM EST 03/11/2020 08:34:00 AM EST [facility] CREATINE KINASE TOTAL CK Routine 03/11/2020 3:34 AM EST 03/11/2020 08:34:00 AM EST [facility] TROPONIN QUANTITATIVE TROPONIN I Routine 03/11/2020 03/11/2020 12:00:00 AM [facility] BLOOD COUNT COMPLETE AUTO&AUTO DIFRNTL WBC COUNT CBC AND DIFFER ENTIAL Routine 03/11/2020 03/11/2020 12:00:00 AM [facility] HEPATIC FUNCTION PANEL HEPATIC FUNCTION PANEL Routine 03/11/2020 03/11/2020 12:00:00 AM EST [facility] BASIC METABOLIC PANEL CALCIUM TOTAL BASIC METABOLIC PANEL Routine 03/11/2020 03/11/2020 12:00:00 AM EST [facility] HEMOGLOBIN GLYCOSYLATED A1C HEMOGLOBIN A1C Routine 02/10/2020 02/10/2020 12:00:00 AM EST [facility] Osteopenia 08/23/2018 Osteopenia 08/23/2018 02/10/2020 12:00:00 AM ES T BOB ([facility]) History of type 2 diabetes mellitus History of type 2 diabet es mellitus 02/10/2020 12:00:00 AM EST [facility] Diverticulosis of intestine Diverticulosis of intestine 01/31 12:00:00 AM EST [facility] Colon polyps Colon polyps 02/10/2020 12:00:00 AM EST G REENWAY ([facility] section 1976 section 197602/10/2020 12:00:00 A M EST BOB ([facility]) History of tonsillectomy 8 years old History of tonsillecto my 8 years old 02/10/2020 12:00:00 AM EST [facility] ([facility] History of hysterectomy 1976 History of hysterectomy 197602/10/2020 12:00:00 AM EST BOB ([facility]) History of cholecystectomy 1976 History of cholecystectomy 197602/10/2020 12:00:00 AM EST BOB ([facility]) Hemoglobin; Glycated A1c Hemoglobin; Glycated A1c 02/10/2020 12:00: 00 AM EST BOB ([facility]) [facility] (fq) visit, established patient; a medically-necessary, psvx-ch-xuyg encounter (one-on-one) between an established patient and a fq practitioner during which time one or more fq services are rendered and includes a typical bundle of medicare-covered services that would be furnished [employer] production supervisor to a patient receiving a fq visit FQ Visit, established patient (Signi/Sep Eval. & Man.) 02/10/2020 12:00:00 AM EST [facility] Hemoglobin; Glycated A1c Hemoglobin; Glycated A1c 02/10/2020 12:00: 00 AM EST [facility] ([facility] NORTH POST-VOIDING RESIDUAL URINE&/BLDR CAP 12/09/2019 12:00:00 AM EDT KAYE ([facility]) BLOOD COUNT COMPLETE AUTO&AUTO DIFRNTL WBC COUNT CBC AND DIFFER ENTIAL Routine 10/16/2019 10/16/2019 12:00:00 AM EDT [facility] THYROID STIMULATING HORMONE TSH TSH Routine 10/16/2019 10/16/2019 12:00:00 AM EDT [facility] HEPATIC FUNCTION PANEL HEPATIC FUNCTION PANEL Routine 10/16/2019 10/16/2019 12:00:00 AM EDT [facility] LIPID PANEL LIPID PANEL Routine 10/16/2019 10/16/2019 1 2:00:00 AM EDT [facility] BASIC METABOLIC PANEL CALCIUM TOTAL BASIC METABOLIC PANEL Routine 10/16/2019 10/16/2019 12:00:00 AM EDT [facility] (fq) visit, established patient; a medically-necessary, xpjq-wt-wwmb encounter (one-on-one) between an established patient and a [facility] practitioner during which time one or more [facility] services are rendered and includes a typical bundle of medicare-covered services that would be furnished hot wound spring production supervisor to a patient receiving a fq visit FQHC Visit, established patient 10/10/2019 12:00:00 AM EDT BOB ([facility]) Ekg With Interpretation and Report Ekg With Interpretation a nd Report 10/10/2019 12:00:00 AM EDT BOB ([facility]) Hemoglobin; Glycated A1c Hemoglobin; Glycated A1c 10/10/2019 12:00: 00 AM EDT BOB ([facility]) Osteopenia 08/23/2018 Osteopenia 08/23/2018 10/10/2019 12:00:00 AM ED T [facility] History of type 2 diabetes mellitus History of type 2 diabet es mellitus 10/10/2019 12:00:00 AM EDT BOB ([facility]) Diverticulosis of intestine Diverticulosis of intestine 09/30 12:00:00 AM EDT [facility] ([facility]) Colon polyps Colon polyps 10/10/2019 12:00:00 AM EDT G REENWAY ([facility]) section 1977 section 197610/10/2019 12:00:00 A M EDT BOB ([facility]) History of tonsillectomy 8 years old History of tonsillecto my 8 years old 10/10/2019 12:00:00 AM EDT BOB ([facility]) History of hysterectomy 1976 History of hysterectomy 197610/10/2019 12:00:00 AM EDT BOB ([facility]) History of cholecystectomy 1976 History of cholecystectomy 197610/10/2019 12:00:00 AM EDT BOB ([facility]) Ekg With Interpretation and Report Ekg With Interpretation a nd Report 10/10/2019 12:00:00 AM EDT BOB ([facility]) Spirometry 08/22/2019 12:00:00 AM EDT M ADEBAYO ([facility], ) [facility] (fq) visit, established patient; a medically-necessary, nrsj-kn-mhof encounter (one-on-one) between an established patient and a [facility] practitioner during which time one or more [facility] services are rendered and includes a typical bundle of medicare-covered services that would be furnished hot wound spring production supervisor to a patient receiving a fq visit [facility] Visit, established patient 07/24/2019 12:00:00 AM EDT BOB ([facility]) Osteopenia 08/23/2018 Osteopenia 08/23/2018 07/24/2019 12:00:00 AM ED T BOB ([facility]) History of type 2 diabetes mellitus History of type 2 diabet es mellitus 07/24/2019 12:00:00 AM EDT BOB ([facility]) Diverticulosis of intestine Diverticulosis of intestine 07/02 12:00:00 AM EDT BOB ([facility]) Colon polyps Colon polyps 07/24/2019 12:00:00 AM EDT G REENWAY ([facility]) section 1976 section 197607/24/2019 12:00:00 A M EDT BOB ([facility]) History of tonsillectomy 8 years old History of tonsillecto my 8 years old 07/24/2019 12:00:00 AM EDT BOB ([facility]) History of hysterectomy 1976 History of hysterectomy 197607/24/2019 12:00:00 AM EDT BOB ([facility]) History of cholecystectomy 1976 History of cholecystectomy 197607/24/2019 12:00:00 AM EDT BOB ([facility]) [facility] ([facility]) visit, established patient; a medically-necessary, ljel-mb-arwo encounter (one-on-one) between an established patient and a [facility] practitioner during which time one or more [facility] services are rendered and includes a typical bundle of medicare-covered services that would be furnished hot wound spring production supervisor to a patient receiving a [facility] visit [facility] Visit, established patient 07/21/2019 12:00:00 AM EDT BOB ([facility]) Urinalysis, by Dip Stick or Tablet Reagent for Bilirub in, Gl Urinalysis, by Dip Stick or Tablet Reagent for Bilirubin, Gl 07/21/2019 12:00:00 AM EDT BOB ([facility]) Revascularization,Endovascular,Transluminal Angioplasty 06/26/2019 12:00:00 AM EDT MEDENT ([facility] REVSC OPN/PRQ TIB/MARIBEL W/STNT/ANGIOP SM VSL 06/26/2019 12:00:00 AM EDT MEDENT ([facility], ) Angiography Extremity Bilateral 06/26/2019 12:00:00 AM EDT MEDENT ([facility], ) Angiography Selective, Each Addtl Vessel Studied After Exam 06/26/2019 12:00:00 AM EDT MEDENT ([facility], ) Moderate Sedation Services; Same Phys Intl 15 Mins; PT >= 5 Years 06/26/2019 12:00:00 AM EDT MEDENT ([facility], ) RH/[facility] code for distant site telehealt h services (Synchronous telemedicine service rendered via real-time interactive audio and video telecommunication system) RH/[facility] code for distant site telehealt h services (Synchronous telemedicine service rendered via real-time interactive audio and video telecommunication system) 06/23/2019 12:00:00 AM EDT CORTEZ Finley ([facility]) [facility] ([facility]) visit, established patient; a medically-necessary, exhj-dn-qugg encounter (one-on-one) between an established patient and a fq practitioner during which time one or more [facility] services are rendered and includes a typical bundle of medicare-covered services that would be furnished hot wound spring production supervisor to a patient receiving a [facility] visit [facility] Visit, established patient (Synchronous telemedicine service rendered via real-time interactive audio and video telecommunication system) 06/23/2019 12:00:00 AM RAVINDER ROJAS [facility]) Qual nonMD est pt 5-10m (Via interactive audio and video telecommunications system) Qual nonMD est pt 5-10m (Via interactive audio and video telecommunications system) 06/23/2019 12:00:00 AM RAVINDER GUERRA ([facility]) Hemoglobin; Glycated A1c Hemoglobin; Glycated A1c 06/09/2019 12:00: 00 AM RAVINDER ROJAS ([facility]) [facility] (fq) visit, ippe or awv; a fqhc visit that includes an initial preventive physical examination (ippe) or annual wellness visit (awv) and includes a typical bundle of medicare-covered services that would be furnished hot wound spring production supervisor to a patient receiving an ippe or awv FQ Visit, IPPE or AWV 06/09/2019 12:00:00 AM RAVINDER ROJAS ([facility]) Annual wellness visit, includes a person alized prevention plan of service (pps), subsequent visit AHR -Subsequent Annual Wellness Visit 06/09/2019 12:00 :00 AM RAVINDER ROJAS ([facility]) [facility] (fq) visit, established patient; a medically-necessary, oybi-gq-oixt encounter (one-on-one) between an established patient and a fq practitioner during which time one or more fqhc services are rendered and includes a typical bundle of medicare-covered services that would be furnished hot wound spring production supervisor to a patient receiving a [facility]qhc visit [facility] Visit, established patient 03/28/2019 12:00:00 AM ALEX ROJAS ([facility]) Osteopenia 08/23/2018 Osteopenia 08/23/2018 03/28/2019 12:00:00 AM ALAN ROJAS ([facility]) History of type 2 diabetes mellitus History of type 2 diabet es mellitus 03/28/2019 12:00:00 AM EST BOB ([facility]) Diverticulosis of intestine Diverticulosis of intestine 03/03 12:00:00 AM EST BOB ([facility]) Colon polyps Colon polyps 03/28/2019 12:00:00 AM EST G REENWAY ([facility]) section 1977 section 197603/28/2019 12:00:00 A M EST BOB ([facility]) History of tonsillectomy 8 years old History of tonsillecto my 8 years old 03/28/2019 12:00:00 AM EST BOB ([facility]) History of hysterectomy 1976 History of hysterectomy 197603/28/2019 12:00:00 AM EST BOB ([facility]) History of cholecystectomy 1976 History of cholecystectomy 197603/28/2019 12:00:00 AM EST BOB ([facility]) Spirometry 02/18/2019 12:00:00 AM EST Emiliano FIORE ([facility], ) Results ID Date Data Source [id number] 03/30/2020 02:33:00 PM [facility] Name Value Range Interpretation Code Description Data Mona rce(s) Supporting Document(s) CREAT RANDOM URINE 150.1 MG/DL [place] [facility] No Normal Ranges Available for this Pro cedure. MICROALBUMIN,URINE 37.0 MG/L [facility] MICROALBUM/CREATININE RATIO,UR 24.6 UG/MG CR 0.0-30.0 N [facility] ID Date Data Source [id number] 03/30/2020 02:55:00 PM [facility] Name Value Range Interpretation Code Description Data Mona rce(s) Supporting Document(s) WHITE BLOOD COUNT 6.96 10^3/uL 4.00-10.50 N [facility] RED BLOOD COUNT 4.55 10^6/uL 3.90-5.20 N [facility] HEMOGLOBIN 11.0 G/DL 11.5-15.6 L [facility] HEMATOCRIT 36.9 % 35.0-46.0 N [facility] MCV 81.1 FL 80.0-100.0 N [facility] MCH 24.2 PG 27.0-34.0 L [facility] MCHC 29.8 G/DL 32-36 L [facility] RDW 17.8 % 11.5-14.5 H [facility] PLATELET COUNT 268 10^3/uL 130-400 N [facility] MPV 10.6 FL 8.7-13.2 N [facility] GRAN % (AUTO) 60.7 % 42.0-75.0 N [facility] LYMPH % (AUTO) 24.9 % 20.0-51.0 N [facility] MONO % (AUTO) 11.6 % 2.0-15.0 N [facility] EOS % (AUTO) 1.4 % 0.0-11.0 N [facility] BASO % (AUTO) 1.0 % 0.0-2.0 N [facility] IG % (AUTO) 0.4 % 1.00-5.00 [facility] IG # (AUTO) 0.0 10^3/uL <0.5 [facility] GRAN # (AUTO) 4.22 10^3/uL 1.50-6.50 N [facility] LYMPH # (AUTO) 1.7 k/uL 1.0-5.0 N [facility] MONO # (AUTO) 0.81 k/uL 0.20-1.50 N [facility] EOS # (AUTO) 0.10 10^3/uL 0.00-1.10 N [facility] BASO # (AUTO) 0.07 10^3/uL 0.00-0.20 N [facility] ID Date Data Source [id number] 03/30/2020 02:33:00 PM EST [facility] Name Value Range Interpretation Code Description Data Mona rce(s) Supporting Document(s) SODIUM 139 MEQ/L 135-145 N [facility] POTASSIUM 4.3 MEQ/L 3.5-5.3 N [facility] CHLORIDE 102 MEQ/L 94-110 N [facility] CARBON DIOXIDE 32 MEQ/L 22-33 N [facility] ANION GAP 9 5-16 N [facility] BLOOD UREA NITRO 19 MG/DL 7-25 N [facility] CREATININE 0.9 MG/DL 0.6-1.4 N [facility] GFR 61.2 ML/MIN [place] [facility] Stage G2 - Mildly decreased kidney func tion The GFR is an estimate of the Glomerular Filtration Rate. It is an aid to assess a patient's renal function. It is not a conclusive diagnosis of kidney disease. GFR normal is >=90 The MDRD GFR calculation is considered valid between the ages of 18 and 75 years only. BUN/CREAT RATIO 21 8-36 N [facility] GLUCOSE 93 MG/DL 70-100 N [facility] CA 9.0 MG/DL 8.7-10.5 N [facility] BILIRUBIN,TOTAL 0.3 MG/DL 0.1-1.3 N [facility] AST 19 U/L 5-40 N [facility] ALT 14 U/L 5-48 N [facility] ALKALINE PHOSPHATASE 85 U/L 40-140 [facility] TOTAL PROTEIN 6.1 G/DL 5.9-8.3 N [facility] ALBUMIN 4.3 G/DL 3.0-5.1 N [facility] GLOBULIN 1.8 G/DL 1.5-3.5 [facility] ALB/GLOB RATIO 2.4 G/DL 1.0-3.0 [facility] ID Date Data Source [id number] 03/30/2020 02:33:00 PM [facility] Name Value Range Interpretation Code Description Data Mona rce(s) Supporting Document(s) TRIGLYCERIDES 119 MG/DL 45-150 N [facility] CHOLESTEROL 105 MG/DL 125-200 L [facility] LDL CHOLESTEROL 35 MG/DL 50-130 L [facility] HDL CHOLESTEROL 46 MG/DL 32-96 [facility] CHOL/HDL RATIO 2.3 0-4.3 [facility] ID Date Data Source [id number] 03/30/2020 02:33:00 PM [facility] Name Value Range Interpretation Code Description Data Mona rce(s) Supporting Document(s) TSH 2.831 uIU/ML 0.470-4.200 N [facility] Patients should not be tested for 73 ho urs post fluorescein dye angiography. A false depression of result may occur. ID Date Data Source [id number] 02/10/2020 02:52:00 PM [facility] [employer]) Name Value Range Interpretation Code Description Data Mona rce(s) Supporting Document(s) Hemoglobin A1c/Hemoglobin.total in Blood 7.5 Abnormal (applies to non-numeric results) Hgb A1c CLYDE ([facility]) ID Date Data Source [id number] 12/09/2019 04:18:00 PM EDT [facility] ([facility] Name Value Range Interpretation Code Description Data Mona rce(s) Supporting Document(s) Urine RBC Laboratory test result 0-2 ME DENT ([facility]) Urine WBC Laboratory test result 0-5 ME D[facility] ([facility]) Crystals Laboratory test result ME DENT ([facility]) Epithelial Cells Laboratory test result [facility] ([facility]) Bacteria Laboratory test result ME DENT ([facility]) Hyaline casts [Presence] in Urine sediment by Light mi croscopy Laboratory test result [facility] ([facility]) Sperm Laboratory test result ME DENT ([facility]) Yeast Laboratory test result ME DENT ([facility]) ID Date Data Source [id number] 12/09/2019 02:50:00 PM EDT MED[facility] ([facility]) Name Value Range Interpretation Code Description Data Mona rce(s) Supporting Document(s) Ua Nitrite Laboratory test result ME DENT ([facility]) Protein [Presence] in Urine by Test strip Laboratory test result [facility] ([facility]) Glucose [Presence] in Urine 250 mg/dL [facility] ([facility]) Color of Urine Laboratory test result [facility] ([facility]) Ua Leuko Laboratory test result ME DENT ([facility]) Blood [Presence] in Urine by Visual Laboratory test result [facility] ([facility]) Ua Specific Prole 1.015 1.003-1.030 MEDE NT ([facility]) Clarity of Urine Laboratory test result [facility] ([facility]) Ketones [Presence] in Urine by Test strip Laboratory test result [facility] ([facility]) pH of Urine by Test strip 6.0 5.0-7.5 [facility] ([facility]) Urobilinogen [Mass/volume] in Urine by Test strip 0.2 E.U./dL 0.0-1.0 [facility] ([facility]) Bilirubin.total [Presence] in Urine by Test strip Laboratory test res ult [facility] ([facility]) ID Date Data Source [id number] 10/22/2019 12:00:00 AM EDT [facility] Jessica Carbajal Np Patient Name: [place] NAILS [facility] 1945[place] [address] Date of Exam: 10/22/2019PH#: Fax: [phone] EXAM: CT ABDOMEN & PELVIS WITH CONTRASTCLINICAL INFORMATION: Epigastric pain.Low dose [address] scanning of the abdomen and pelvis wasobtained after the administration of intravenous and oral bowel preparatorycontrast using 3 mm increments and reconstructed in both sagittal andcoronal scan planes. Immediate and delayed post contrast enhanced imagingwas obtained through the abdomen. 75 cc of Optiray 350 was administer edintravenously.Comparison is 12/04/2017.There is no significant change in lung bases. There are no pleural orpericardial effusions.The liver, spleen, pancreas, adrenal glands and kidneys are unchanged.There are tiny bilateral renal cortical cysts, status quo. There is no freefluid or free air. There is no intraabdominal or intrapelvic mass oradenopathy. There is colonic diverticulosis, status quo. The abdominalaorta and paraaortic regions are within normal limits and unchanged.Once again, there is post procedural change in the pelvis, status quo.There is no significant change in the osseous stru ctures.IMPRESSION:There is no acute intraabdominal or intrapelvic disease. Findings asdescribed above.Accredited by the [place] [employer] in [place].Josy Puga, BIBIANA/jmcThank sussy for referring FRANCISCO NAILS to our office. Electronically Signed - JOSY PUGA DO 10/22/19 16:33 Name Value Range Interpretation Code Description Data Moan rce(s) Supporting Document(s) ID Date Data Source [id number] 10/10/2019 01:38:00 PM EDT BOB ([facility]) Name Value Range Interpretation Code Description Data Mona rce(s) Supporting Document(s) Hemoglobin A1c/Hemoglobin.total in Blood 7.6 Abnormal (applies to non-numeric results) Hgb A1c BOB ([facility]) ID Date Data Source [id number] 08/22/2019 10:55:00 AM EDT MEDENT ([facility], ) Name Value Range Interpretation Code Description Data Mona rce(s) Supporting Document(s) FVC-Pred 2.92 L MEDENT ([facility], ) PDFReport Laboratory test result MEDENT ([facility]) FVC-LLN 2.22 L MEDENT ([facility]) FVC-%Pred-Pre 79 L MEDENT ([facility]) FVC-Pre 2.32 L [facility] ([facility]) Fev1-%Pred-Pre 85 L MEDENT ([facility]) Fev1-Pre 1.87 L MED[facility] ([facility]) Fev1-Pred 2.20 L [facility] ([facility]) Fev1-LLN 1.61 L [facility] ([facility]) Fev6-Pred 2.78 L [facility] ([facility]) Fev6-Pre 2.32 L [facility] ([facility]) Fev6-LLN 2.10 L [facility] ([facility]) Smt4fkp-Izcn 75 % MEDENT ([facility]) Fev6-%Pred-Pre 83 L [facility] ([facility]) Stg7uus-Jug 81 % [facility] ([facility]) Yvh5acb-%Pred-Pre 107 % MEDENT ([facility]) Tzk2own-Tkru 95 % MED[facility] ([facility]) Sbg1vnr-Ylh 100 % [facility] ([facility]) Erd6lrm-BEW 65 % [facility] ([facility]) Wfo1aco-%Pred-Pre 104 % MEDENT ([facility]) FEFMax-Pre 5.00 L/E/sec MEDENT ([facility]) FEFMax-Pred 5.45 L/E/sec MED[facility] ([facility]) FEFMax-%Pred-Pre 91 L/E/sec [facility] ([facility]) Xqa2808-Kjqa 1.77 L/E/sec MED[facility] ([facility]) FEFMax-LLN 3.72 L/E/sec [facility] ([facility]) Tnp0153-Vyq 1.87 L/E/sec [facility] ([facility]) Kqc3518-APL 0.52 L/E/sec [facility] ([facility]) Ycs8631-%Pred-Pre 105 L/E/sec MED[facility] ([facility]) ExpTime-Pre 5.54 sec MED[facility] ([facility]) Vjc9gsk1-Ogey 79 % MED[facility] ([facility]) Azv4nic2-%Pred-Pre 102 % MEDENT ([facility]) Skc5ovw5-Pyq 81 % MED[facility] ([facility]) Tbn5saw4-ARN 70 % [facility] ([facility]) ID Date Data Source [id number] 07/21/2019 05:19:00 PM EDT BOB ([facility]) Name Value Range Interpretation Code Description Data Mona rce(s) Supporting Document(s) Reported Physicians See Note Reported Physicians BOB ([facility]) Note: Reported Physicians:Ordering: Jessica Pollackending: Jessica Mcmahan ID Date Data Source [id number] 07/21/2019 05:19:00 PM EDT BOB ([facility]) Name Value Range Interpretation Code Description Data Mona rce(s) Supporting Document(s) GARDNERELLA BY DNA PROBE NEGATIVE GARDNERELLA BY DNA PROBE BOB ([facility]) Note: Responsible Observer: GARDNERELLA GARDNERELLA BY DNA PROBE 500.3075 (A) BARRINGTON BY DNA PROBE POSITIVE Abnormal (applies to non-numeric results) BARRINGTON BY DNA PROBE BOB ([facility]) Note: Responsible Observer: [place]ARR[place] BY D NA [place] BY DNA PROBE 500.3050 (A) TRICHOMONAS BY DNA PROBE NEGATIVE TRICHOMONAS BY DNA PROBE [facility]OB ([facility]) Note: TESTING PERFORMED BY NUCLEIC ACID HYBRIDIZATIONResponsible Observer: TRICHOMONAS TRICHOMONAS BY DNA PROBE 500.3100 (A) ID Date Data Source [id number] 07/21/2019 05:19:00 PM EDT BOB ([facility]) Name Value Range Interpretation Code Description Data Mona rce(s) Supporting Document(s) Reported Physicians See Note Reported Physicians BOB ([facility]) Note: Reported Physicians:Ordering: Jessica Pollackending: Jessica Mcmahan ID Date Data Source [id number] 07/21/2019 05:19:00 PM EDT BOB ([facility]) Name Value Range Interpretation Code Description Data Mona rce(s) Supporting Document(s) See Note Avila See Note Austin ROJAS ([facility]) Note: Run: 07/24/19 0745 INTERFACED REPORT Name: Francisco Nails Age/Sex: 74/F Location: [facility] Acct: [id number] Unit: [id number] Status: REG REF Room/Bed: Re07/21/19 Disch: Sharon Dr: Jessica Mcmahan NP Specimen #: [id number] Ordered : 07/22/19 Collected : 07/21/19 By: OFFICE Received: 07/22/19 By: DENA Source: VAGI Specimen Description: Comments: VAGINAL VAGINA Procedure Result GRAM STAIN Final GRAM POSITIVE RODS MANY GRAM NEGATIVE RODS RARE GENITAL CULTURE Final USUAL ADAM AFTER 24 HOURS USUAL ADAM AFTER 48 HOURS GENITAL CULTURE Preliminary (Corrected) USUAL ADAM AFTER 24 HOURS END OF REPORT ID Date Data Source [id number] 07/24/2019 07:45:00 AM EDT [facility] Run: 07/24/19 0745 INTERFACED REPORT Name: Francisco Nails Age/Sex: 74/F Location: [facility] Acct: [id number] Unit: [id number] Status: REG REF Room/Bed: Re07/21/19 Disch: Att Dr: Jessica Mcmahan NP Specimen #: [id number] Ordered : 07/22/19 Collected : 07/21/19 By: OFFICE Received: 07/22/19 By: DENA Source: VAGI Specimen Description: Comments: VAGINAL VAGINA Procedure Result GRAM STAIN Final GRAM POSITIVE RODS MANY GRAM NEGATIVE RODS RARE GENITAL CULTURE Final USUAL ADAM AFTER 24 HOURS USUAL ADAM AFTER 48 HOURS GENITAL CULTURE Preliminary (Corrected) USUAL ADAM AFTER 24 HOURS END OF REPORT Name Value Range Interpretation Code Description Data Mona rce(s) Supporting Document(s) ID Date Data Source [id number] 07/22/2019 02:46:00 PM EDT [facility] Name Value Range Interpretation Code Description Data Mona rce(s) Supporting Document(s) BARRINGTON BY DNA PROBE POSITIVE NEGATIVE A [facility] GARDNERELLA BY DNA PROBE NEGATIVE NEGATIVE [facility] TRICHOMONAS BY DNA PROBE NEGATIVE NEGATIVE [facility] TESTING PERFORMED BY NUCLEIC ACID HYBRI DIZATION ID Date Data Source [id number] 07/21/2019 05:00:00 PM EDT BOB ([facility]) Name Value Range Interpretation Code Description Data Mona rce(s) Supporting Document(s) Reported Physicians See Note Reported Physicians BOB ([facility]) Note: Reported Physicians:Ordering: Jessica Pollackending: Jessica Mcmahan ID Date Data Source [id number] 07/21/2019 05:00:00 PM EDT BOB ([facility]) Name Value Range Interpretation Code Description Data Mona rce(s) Supporting Document(s) See Note Avila See Note Austin BOB ([facility]) Note: Run: 07/24/19 0738 INTERFACED REPORT Name: Francisco Nails Age/Sex: 74/F Location: [facility] Acct: [id number] Unit: [id number] Status: REG REF Room/Bed: Re07/21/19 Disch: Sharon Dr: 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 Specimen #: [id number] Ordered : 07/22/19 Collected : 07/21/19 By: OFFICE Received: 07/22/19 By: DENA Source: URINE CC Specimen Description: Comments: Has been collected UCC Procedure Result COLONY COUNT Final COLONY COUNT 10,000 CFU/ML URINE CULTURE Final NO SIGNIFICANT GROWTH 24 HOURS NO SIGNIFICANT GROWTH 48 HOURS URINE CULTURE Preliminary (Corrected) NO SIGNIFICANT GROWTH 24 HOURS END OF REPORT ID Date Data Source [id number] 07/24/2019 07:38:00 AM EDT [employer] Run: 07/24/19 0738 INTERFACED REPORT Name: Francisco Nails Age/Sex: 74/F Location: [facility] Acct: [id number] Unit: [id number] Status: REG REF Room/Bed: Re07/21/19 Disch: Sharon Dr: Jessica Mcmahan NP Specimen #: [id number] Ordered : 07/22/19 Collected : 07/21/19 By: OFFICE Received: 07/22/19 By: DENA Source: URINE CC Specimen Description: Comments: Has been collected UCC Procedure Result COLONY COUNT Final COLONY COUNT 10,000 CFU/ML URINE CULTURE Final NO SIGNIFICANT GROWTH 24 HOURS NO SIGNIFICANT GROWTH 48 HOURS URINE CULTURE Preliminary (Corrected) NO SIGNIFICANT GROWTH 24 HOURS END OF REPORT Name Value Range Interpretation Code Description Data Mona rce(s) Supporting Document(s) ID Date Data Source [id number] 07/21/2019 12:00:00 AM RAVINDER ROJAS ([facility]) Name Value Range Interpretation Code Description Data Mona rce(s) Supporting Document(s) Color of Exudate from wound norm Normal Color GR EENWAY ([facility]) Blood [Presence] in Urine by Visual trace Abnormal (applies to non-numeric results) Blood BOB ([facility]) Bili neg Normal Bili BOB [facility] Leukocytes [#/volume] by Microscopy high power field in Urine sediment collected for unspecified duration neg Normal Leukocytes BOB ( [facility]) Glucose [Mass/volume] in Urine collected for unspecified duration n eg Normal Glucose BOB ([facility]) Ketone neg Normal Ketone BOB ([facility]) pH of Vaginal fluid by Test strip neg Normal pH BOB ([facility]) Protein [Mass/volume] in Saliva (oral fluid) neg No rmal Protein BOB ([facility]) Nitrite [Presence] in Urine by Test strip neg Isabella l Nitrite BOB ([facility]) Specific gravity of Pericardial fluid by Refractometry 1.005 Abnormal (applies to non-numeric results) Specific Prole BOB ([facility]) Urobili neg Normal Urobili BOB ([facility]) ID Date Data Source [id number] 06/26/2019 09:06:[address] [facility]) Name Value Range Interpretation Code Description Data Mona rce(s) Supporting Document(s) Glucose [Mass/volume] in Capillary blood by Glucometer 98 mg/dL 83-110 Normal (applies to non-numeric results) [facility]) ID Date Data Source [id number] 06/26/2019 06:58:[address] [facility]) Name Value Range Interpretation Code Description Data Mona rce(s) Supporting Document(s) Glucose [Mass/volume] in Capillary blood by Glucometer 91 mg/dL 83-110 Normal (applies to non-numeric results) [facility]) ID Date Data Source [id number] 06/09/2019 12:40:00 PM EDT BOB ([facility]) Name Value Range Interpretation Code Description Data Mona rce(s) Supporting Document(s) Hemoglobin A1c/Hemoglobin.total in Blood 7.9 Abnormal (applies to non-numeric results) Hgb A1c [facility] ([facility]) ID Date Data Source [id number] 03/28/2019 05:42:00 PM EST BOB ([facility]) Name Value Range Interpretation Code Description Data Mona rce(s) Supporting Document(s) Reported Physicians See Note Reported Physicians [facility] ([facility]) Note: Reported Physicians:Ordering: Jessica RichardsonAttending: Jessica Carbajal ID Date Data Source [id number] 03/28/2019 05:42:00 PM EST BOB ([facility]) Name Value Range Interpretation Code Description Data Mona rce(s) Supporting Document(s) BARRINGTON BY DNA PROBE POSITIVE Abnormal (applies to non-numeric results) BARRINGTON BY DNA PROBE BOB ([facility]) Note: Responsible Observer: BARRINGTON BY D NA BARRINGTON BY DNA PROBE 500.3050 (A) TRICHOMONAS BY DNA PROBE NEGATIVE TRICHOMONAS BY DNA PROBE BOB ([facility]) Note: TESTING PERFORMED BY NUCLEIC ACID HYBRIDIZATIONResponsible Observer: TRICHOMONAS TRICHOMONAS BY DNA PROBE 500.3100 (A) GARDNERELLA BY DNA PROBE POSITIVE Abnormal (applie s to non-numeric results) GARDNERELLA BY DNA PROBE BOB ([facility]) Note: Responsible Observer: GARDNERELLA GARDNERELLA BY DNA PROBE 500.3075 (A) ID Date Data Source [id number] 03/29/2019 01:42:00 PM [facility] Name Value Range Interpretation Code Description Data Mona rce(s) Supporting Document(s) BARR[place] BY DNA PROBE POSITIVE NEGATIVE A [place] [facility] GARDNERELLA BY DNA PROBE POSITIVE NEGATIVE [facility] BY DNA PROBE NEGATIVE NEGATIVE [facility] TESTING PERFORMED BY NUCLEIC ACID HYBRI DIZATION ID Date Data Source [id number] 03/03/2019 12:00:00 AM EST [facility] Sushant Daniels MD Patient Name: MATTHEW [id number] [facility] Date of : 1945[place] Date of Exam: 03/03/2019GEOVANNY Kapoor [id number] Fax: [phone] EXAM: LOW DOSE CT LUNG SCREENINGCLINICAL INFORMATION: Lung cancer screening in a patient with nicotinedependance and 48 pack year history of smoking.Comparison, a portable chest 01/25/18, CT angiogram 12/05/17.TECHNIQUE: 3 [address] lung windows with CT lung technique reviewed per protocol.In the medial segment of the right middle lobe just behind and below theminor fissure is a 6.6 x 5.9 mm ground-glass opacity which corresponds to aCT finding from 12/05/17, grossly unchanged. This is seen on Image 56. Theright middle lobe as well as the right lower lobe were without nodule ormass. There is no pleural thickening or apical scarring there is someminor interstitial fibrotic changes on that right side. The left lungshows clearing of some atelectatic change in the inferior lingular segmentcompared to one year ago while the medial segment of the right middle lobeshows curvilinear fibroatelectatic change unchanged from last year. Thereis no mass, effusion or acute infiltrate. Tracheal airway intact. I seeno significant bronchiectatic changes. Heart size enlarged as before.Left atrium enlarged. Vascular calcifications are suspected in coronaryarteries and no changed.IMPRESSION:1. A non-solid nodule less than 20 mm, stable for 15 months and some otherfibrotic changes are seen as described. This is best defined as LungRadsCategory 2, benign. Nodules in this category can be followed up withannual low dose screening CT in 12 months and have less than 1% chance ofmalignancy at the time of the exam.Accredited by the [employer] in [place].Cesia Hernandez, DONAVAN/Faith you for referring FRANCISCO NAILS to our office. Electronically Signed - CESIA HERNANDEZ MD 03/04/19 17:42 Name Value Range Interpretation Code Description Data Mona rce(s) Supporting Document(s) Procedure Social History Code Duration Value Status Description Data Source(s ) Alcohol intake 03/15/2020 12:00:00 AM EST No completed [facility] Cigarette pack-years 03/15/2020 12:00:00 AM EST UNK completed [facility] Cigarettes smoked current (pack per day) - Reported 03/15/20 12:00:00 AM EST UNK completed [facility] Smoking 03/15/2020 12:00:00 AM EST Current every day smoker co mpleted Current every day smoker [facility] Alcohol intake 03/04/2020 12:00:00 AM EST No completed [facility] Cigarette pack-years 03/04/2020 12:00:00 AM EST UNK completed [facility] Cigarettes smoked current (pack per day) - Reported 03/04/20 12:00:00 AM EST UNK completed [facility] Smoking 03/04/2020 12:00:00 AM EST Current every day smoker co mpleted Current every day smoker [facility] Smoking 02/10/2020 12:00:00 AM EST Smokes tobacco daily (findi ng) completed Smokes tobacco daily (finding) [facility]OB ([facility]) Smoking 12/09/2019 12:00:00 AM EDT current cigarette smoker co mpleted current cigarette smoker [facility] ([facility] Smoking 10/10/2019 12:00:00 AM EDT Smokes tobacco daily (findi ng) completed Smokes tobacco daily (finding) BOB ([facility]) Smoking 07/21/2019 12:00:00 AM EDT Smokes tobacco daily (findi ng) completed Smokes tobacco daily (finding) BOB ([facility]) Smoking 06/09/2019 12:00:00 AM EDT Smokes tobacco daily (findi ng) completed Smokes tobacco daily (finding) BOB ([facility]) Assertion 06/09/2019 12:00:00 AM EDT Finding relat ing to drug misuse behavior (finding) completed Finding relating to drug misuse behavior (finding) BOB ([facility]) Assertion 06/09/2019 12:00:00 AM EDT Current drinker of al cohol (finding) completed Current drinker of alcohol (finding) BOB ([facility]) Smoking 03/28/2019 12:00:00 AM EST Smokes tobacco daily (findi ng) completed Smokes tobacco daily (finding) BOB ([facility]) Vital Signs ID Date Data Source UNK Name Value Range Interpretation Code Description Data Source(s) Body mass index (BMI) [Ratio] 22.49 kg/m2 22.49 kg/m2 [facility] Body weight 59.421 kg 59.421 kg [facility] Body height 162.6 cm 162.6 cm [facility] Heart rate 65 /min 65 /min [facility] Diastolic blood pressure 80 mm[Hg] 80 mm[Hg] [facility] Systolic blood pressure 144 mm[Hg] 144 mm[Hg] [facility] Oxygen saturation in Arterial blood by Pulse oximetry 93 % 93 % [facility] Diastolic blood pressure 90 mm[Hg] 90 mm[Hg] [facility] Systolic blood pressure 138 mm[Hg] 138 mm[Hg] [facility] Oxygen saturation in Arterial blood by Pulse oximetry 93 % 93 % [facility] Body mass index (BMI) [Ratio] 22.18 kg/m2 22.18 kg/m2 [facility] Body weight 58.605 kg 58.605 kg [facility] Body height 162.6 cm 162.6 cm [facility] Heart rate 80 /min 80 /min [facility] Inhaled oxygen concentration 21 % 21 % [facility] ([facility]) Inhaled oxygen flow rate 0 L/min 0 L/min [facility] ([facility]) Oxygen saturation in Arterial blood by Pulse oximetry 95 % 95 % [facility] ([facility]) PhenX - pain, abdominal - type and intensity protocol 7 7 [facility] ([facility]) Body weight 127 [lb_av] 127 [lb_av] [facility] Respiratory rate 22 /min 22 /min [facility] Heart rate rhythm 1 1 [place] Y [facility] Heart rate 74 /min 74 /min [facility] Diastolic blood pressure 70 mm[Hg] 70 mm[Hg] [facility] Systolic blood pressure 140 mm[Hg] 140 mm[Hg] G [facility]AY ([facility] Body mass index (BMI) [Ratio] 22.5 kg/m2 22.5 k g/m2 [facility] ([facility]) Body height 64.5 [in_i] 64.5 [in_i] [facility] ([facility]) 5'4.50" Body weight 133.00 [lb_av] 133.00 [lb_av] MEDEN T ([facility]) Body temperature 98.6 [degF] 98.6 [degF] [facility] ([facility]) Respiratory rate 16 /min 16 /min [facility] ( [facility]) Heart rate 80 /min 80 /min [facility] ([facility]) Diastolic blood pressure 76 mm[Hg] 76 mm[Hg] [facility] ([facility]) Systolic blood pressure 140 mm[Hg] 140 mm[Hg] M EDENT ([facility]) Diastolic blood pressure 80 mm[Hg] 80 mm[Hg] [facility] ([facility]) Systolic blood pressure 122 mm[Hg] 122 mm[Hg] M EDENT ([facility]) Body mass index (BMI) [Ratio] 22.1 kg/m2 22.1 k g/m2 [facility] ([facility]) Body weight 58.514 kg 58.514 kg [facility] ([facility] Body weight 129.00 [lb_av] 129.00 [lb_av] MEDEN T ([facility]) Body height 64 [in_i] 64 [in_i] [facility] ([facility] 5'4" Inhaled oxygen concentration 21 % 21 % BOB ([facility]) temp taken by Sergey Pinto LPN Inhaled oxygen flow rate 0 L/min 0 L/min BOB ([facility]) temp taken by Sergey Pinto LPN Oxygen saturation in Arterial blood by Pulse oximetry 96 % 96 % BOB ([facility]) temp taken by Sergey Pinto LPN PhenX - pain, abdominal - type and intensity protocol 7 7 BOB ([facility]) temp taken by Sergey Pinto LPN Body surface area Derived from formula 1.61 m2 1.61 m2 BOB ([facility]) temp taken by Sergey Pinto LPN Body mass index (BMI) [Ratio] 21.6 kg/m2 21.6 k g/m2 BOB ([facility]) temp taken by Sergey Pinto LPN Body weight 126 [lb_av] 126 [lb_av] [facility] temp taken by Sergey Pinto LPN Body height 64 [in_i] 64 [in_i] [facility]OB [facility] temp taken by Sergey Pinto LPN Body temperature 96.5 [degF] 96.5 [degF] [facility] ([facility]) temp taken by Sergey Pinto LPN Respiratory rate 18 /min 18 /min BOB ([facility]) temp taken by Sergey Pinto LPN Heart rate 68 /min 68 /min [facility] temp taken by Sergey Pinto LPN Diastolic blood pressure 60 mm[Hg] 60 mm[Hg] BOB ([facility]) temp taken by Sergey Pinto LPN Systolic blood pressure 114 mm[Hg] 114 mm[Hg] G REEN[place]AY ([facility]) temp taken by Sergey Pinto LPN Body weight 58.968 kg 58.968 [facility] Body mass index (BMI) [Ratio] 22.1 kg/m2 22.1 k g/m2 [facility] ([facility], ) Body weight 130.00 [lb_av] 130.00 [lb_av] MEDEN T ([facility]) Body height 64.25 [in_i] 64.25 [in_i] [facility] ([facility]) 5'4.25" Heart rate 94 /min 94 /min [facility] ([facility]) Diastolic blood pressure 72 mm[Hg] 72 mm[Hg] [facility] ([facility]) Systolic blood pressure 140 mm[Hg] 140 mm[Hg] [facility] ([facility]) Heart rate 90 /min 90 /min [facility] ([facility]) Diastolic blood pressure 70 mm[Hg] 70 mm[Hg] [facility] ([facility]) Systolic blood pressure 110 mm[Hg] 110 mm[Hg] [facility] ([facility]) Body weight 58.514 kg 58.514 kg [facility] ([facility]) Body mass index (BMI) [Ratio] 22.0 kg/m2 22.0 k g/m2 [facility] ([facility]) Body weight 129.00 [lb_av] 129.00 [lb_av] [facility] Body height 64.25 [in_i] 64.25 [in_i] [facility] ([facility]) 5'4.25" Body temperature 97.3 [degF] 97.3 [degF] [facility] ([facility]) Oxygen saturation in Arterial blood by Pulse oximetry 97 % 97 % [facility] ([facility]) Room Air Inhaled oxygen concentration 21 % 21 % BOB ([facility]) Inhaled oxygen flow rate 0 L/min 0 L/min BOB ([facility]) Oxygen saturation in Arterial blood by Pulse oximetry 99 % 99 % BOB ([facility]) PhenX - pain, abdominal - type and intensity protocol 7 7 BOB ([facility]) Body weight 129 [lb_av] 129 [lb_av] [facility] Body temperature 98 [degF] 98 [degF] BOB ([facility]) Respiratory rate 18 /min 18 /min BOB ([facility]) Heart rate rhythm 1 1 [place] Y ([facility]) Heart rate 56 /min 56 /min [facility] ([facility] Diastolic blood pressure 60 mm[Hg] 60 mm[Hg] BOB ([facility]) Systolic blood pressure 110 mm[Hg] 110 mm[Hg] [facility] Inhaled oxygen concentration 21 % 21 % BOB ([facility]) Inhaled oxygen flow rate 0 L/min 0 L/min [facility] ([facility]) Oxygen saturation in Arterial blood by Pulse oximetry 98 % 98 % [facility] ([facility]) PhenX - pain, abdominal - type and intensity protocol 7 7 BOB ([facility]) Body surface area Derived from formula 1.62 m2 1.62 m2 BOB ([facility]) Body mass index (BMI) [Ratio] 22.1 kg/m2 22.1 k g/m2 BOB ([facility]) Body weight 129 [lb_av] 129 [lb_av] [facility] ([facility]) Body height 64 [in_i] 64 [in_i] BOB ([facility] Body temperature 97.9 [degF] 97.9 [degF] [facility] AY ([facility]) Respiratory rate 18 /min 18 /min BOB ([facility]) Heart rate 72 /min 72 /min BOB ([facility]) Diastolic blood pressure 72 mm[Hg] 72 mm[Hg] BOB ([facility]) Systolic blood pressure 102 mm[Hg] 102 mm[Hg] G [facility] ([facility]) Body weight 58.571 kg 58.571 kg [facility] ([facility], ) Body mass index (BMI) [Ratio] 22.0 kg/m2 22.0 k g/m2 [facility] ([facility], ) Body weight 129.12 [lb_av] 129.12 [lb_av] MEDEN T ([facility], ) Body height 64.25 [in_i] 64.25 [in_i] [facility] ([facility], ) 5'4.25" Body temperature 98.9 [degF] 98.9 [degF] [facility] ([facility], ) Diastolic blood pressure 70 mm[Hg] 70 mm[Hg] [facility] ([facility]) Systolic blood pressure 108 mm[Hg] 108 mm[Hg] [facility] Body weight 58.628 kg 58.628 kg [facility] ([facility]) Body mass index (BMI) [Ratio] 22.0 kg/m2 22.0 k g/m2 [facility] ([facility]) Body weight 129.25 [lb_av] 129.25 [lb_av] MEDEN T ([facility]) Body height 64.25 [in_i] 64.25 [in_i] [facility] ([facility]) 5'4.25" Diastolic blood pressure 71 mm[Hg] 71 mm[Hg] [facility] ([facility]) Systolic blood pressure 145 mm[Hg] 145 mm[Hg] M [facility] ([facility]) PhenX - pain, abdominal - type and intensity protocol 6 6 BOB ([facility]) Body surface area Derived from formula 1.62 m2 1.62 m2 BOB ([facility]) Body mass index (BMI) [Ratio] 22.0 kg/m2 22.0 k g/m2 BOB ([facility]) Body weight 128 [lb_av] 128 [lb_av] [facility] Body height 64 [in_i] 64 [in_i] BOB ([facility] Body temperature 97.9 [degF] 97.9 [degF] [facility] AY ([facility]) Respiratory rate 20 /min 20 /min BOB ([facility]) Heart rate rhythm 1 1 [place] Y ([facility]) Heart rate 66 /min 66 /min [facility] ([facility] Diastolic blood pressure 72 mm[Hg] 72 mm[Hg] BOB ([facility]) Systolic blood pressure 116 mm[Hg] 116 mm[Hg] G [place] ([facility]) Inhaled oxygen concentration 21 % 21 % BOB ([facility]) Inhaled oxygen flow rate 0 L/min 0 L/min BOB ([facility]) Oxygen saturation in Arterial blood by Pulse oximetry 97 % 97 % BOB ([facility]) PhenX - pain, abdominal - type and intensity protocol 7 7 BOB ([facility]) Body surface area Derived from formula 1.64 m2 1.64 m2 BOB ([facility]) Body mass index (BMI) [Ratio] 22.8 kg/m2 22.8 k g/m2 BOB ([facility]) Body weight 133 [lb_av] 133 [lb_av] [facility] Body height 64 [in_i] 64 [in_i] BOB ([facility]) Body temperature 98.2 [degF] 98.2 [degF] [facility] AY ([facility]) Respiratory rate 20 /min 20 /min BOB ([facility]) Heart rate 65 /min 65 /min BOB ([facility]) Diastolic blood pressure 66 mm[Hg] 66 mm[Hg] BOB ([facility]) Systolic blood pressure 112 mm[Hg] 112 mm[Hg] G [facility] ([facility]) Body weight 61.690 kg 61.690 kg [facility], ) Body mass index (BMI) [Ratio] 23.2 kg/m2 23.2 k g/m2 [facility] ([facility], ) Body weight 136.00 [lb_av] 136.00 [lb_av] [facility], ) Body height 64.25 [in_i] 64.25 [in_i] [facility] ([facility], ) 5'4.25" Oxygen saturation in Arterial blood by Pulse oximetry 95 % 95 % [facility] ([facility], ) Room Air Heart rate 74 /min 74 /min [facility] ([facility], ) Diastolic blood pressure 76 mm[Hg] 76 mm[Hg] [facility] ([facility], ) Systolic blood pressure 130 mm[Hg] 130 mm[Hg] [facility], ) Patient Treatment Plan of Care Planned Activity Planned Date Details Description Data Source (s) Losartan Potassium 50 MG Oral Tablet 03/04/2020 12:00:00 AM [facility] rivaroxaban 20 MG Oral Tablet 03/04/2020 12:00:00 AM [facility] Furosemide 20 MG Oral Tablet 02/19/2020 12:00:00 AM EST [facility] montelukast 10 MG Oral Tablet 02/11/2020 12:00:00 AM EST [facility] montelukast 10 MG Oral Tablet 02/10/2020 12:00:00 AM [facility] ([facility]) Bisoprolol Fumarate 5 MG Oral Tablet 02/10/2020 12:00:00 AM [facility] ([facility]) Metformin hydrochloride 500 MG Oral Tablet 02/06/2020 12:00:00 AM [facility] ([facility]) Cyclobenzaprine hydrochloride 10 MG Oral Tablet 02/06/2020 12:00:00 AM [facility] ([facility]) FLUAD QUADRIVALENT 0.5 ML PRSY 02/02/2020 12:00:00 AM [facility] Acetaminophen 325 MG / Oxycodone Hydrochloride 5 MG Or al Tablet [Percocet] 01/22/2020 12:00:00 AM EDT BOB ([facility]) Acetaminophen 325 MG / Oxycodone Hydrochloride 5 MG Or al Tablet [Percocet] 12/23/2019 12:00:00 AM EDT BOB ([facility]) Zolpidem tartrate 5 MG Oral Tablet 11/25/2019 12:00:00 AM EDT BOB ([facility]) Acetaminophen 325 MG / Oxycodone Hydrochloride 5 MG Or al Tablet [Percocet] 11/25/2019 12:00:00 AM EDT BOB ([facility]) rivaroxaban 20 MG Oral Tablet 11/18/2019 12:00:00 AM EDT [facility] Acetaminophen 325 MG / Oxycodone Hydrochloride 5 MG Or al Tablet [Percocet] 10/28/2019 12:00:00 AM EDT BOB ([facility]) 24 HR venlafaxine 75 MG Extended Release Oral Capsule 10/10/2019 12:00:00 AM EDT BOB ([facility]) Levothyroxine Sodium 0.05 MG Oral Tablet 10/10/2019 12:00:00 AM EDT BOB ([facility]) glipiZIDE XL 10 MG Oral Tablet Extended Release 24 Domonique r 10/10/2019 12:00:00 AM EDT BOB ([facility]) atorvastatin 40 MG Oral Tablet 10/10/2019 12:00:00 AM ED [facility] ([facility]) Nystatin 100 UNT/MG Topical Powder 10/10/2019 12:00:00 AM [facility] ([facility]) lansoprazole 30 MG Delayed Release Oral Capsule 10/10/2019 12:00:00 AM [facility] BOB ([facility]) Bisoprolol Fumarate 5 MG Oral Tablet 10/10/2019 12:00:00 AM [facility] BOB ([facility]) Amoxicillin 875 MG / Clavulanate 125 MG Oral Tablet 10/10/19 20 12:00:00 AM [facility] BOB ([facility]) Fluticasone Propionate 50 MCG/ACT Nasal Suspension 10/10/2019 12 :00:00 AM [facility] ([facility]) Acetaminophen 325 MG / Oxycodone Hydrochloride 5 MG Or al Tablet [Percocet] 09/29/2019 12:00:00 AM [facility] BOB ([facility]) Cyclobenzaprine hydrochloride 10 MG Oral Tablet 09/01/2019 12:00:00 AM [facility] ([facility]) Acetaminophen 325 MG / Oxycodone Hydrochloride 5 MG Or al Tablet [Percocet] 08/29/2019 12:00:00 AM [facility] ([facility]) Acetaminophen 325 MG / Oxycodone Hydrochloride 5 MG Or al Tablet [Percocet] 08/01/2019 12:00:00 AM [facility] ([facility]) [facility] Miconazole 7 2% Vaginal Cream 07/25/2019 12:00:00 AM [facility] 200 ACTUAT Albuterol 0.09 MG/ACTUAT Metered Dose Inhal er [Ventolin] 07/24/2019 12:00:00 AM [facility] ([facility]) D3-50 1.25 MG (29801 UT) Oral Capsule 07/24/2019 12:00:00 AM [facility] ([facility]) OneTouch Ultra Blue In Vitro Strip 07/24/2019 12:00:00 AM [facility] ([facility]) Metronidazole 500 MG Oral Tablet [Flagyl] 07/21/2019 12:00:00 AM ED [facility] ([facility]) Fluconazole 150 MG Oral Tablet [Diflucan] 07/21/2019 12:00:00 AM ED T [facility] ([facility]) Acetaminophen 325 MG / Oxycodone Hydrochloride 5 MG Or al Tablet [Percocet] 07/03/2019 12:00:00 AM EDT [facility] ([facility]) Nystatin 100 UNT/MG Topical Ointment 06/26/2019 12:00:00 AM EDT [facility] Zolpidem tartrate 5 MG Oral Tablet 06/17/2019 12:00:00 AM EDT [facility] ([facility]) Trazodone Hydrochloride 50 MG Oral Tablet 06/09/2019 12:00:00 AM ED T [facility] Cyclobenzaprine hydrochloride 10 MG Oral Tablet 06/09/2019 12:00:00 AM EDT [facility] ([facility]) Metformin hydrochloride 500 MG Oral Tablet 06/09/2019 12:00:00 AM E DT [facility] ([facility]) Bisoprolol Fumarate 5 MG Oral Tablet 06/09/2019 12:00:00 AM EDT [facility] ([facility]) Trazodone Hydrochloride 50 MG Oral Tablet 06/09/2019 12:00:00 AM ED T [facility] ([facility]) Pramipexole dihydrochloride 0.125 MG Oral Tablet 06/09/2019 12:00:0 0 AM EDT [facility] ([facility]) Losartan Potassium 25 MG Oral Tablet 06/09/2019 12:00:00 AM EDT [facility] ([facility]) POLYETHYLENE GLYCOL 3350 142 MG/ML Oral Solution 06/09/2019 12:00:0 0 AM EDT [facility] ([facility]) Metoclopramide 10 MG Oral Tablet 06/09/2019 12:00:00 AM EDT [facility] ([facility]) Acetaminophen 325 MG / Oxycodone Hydrochloride 5 MG Or al Tablet [Percocet] 06/03/2019 12:00:00 AM EST [facility] ([facility]) Cyclobenzaprine hydrochloride 10 MG Oral Tablet 05/27/2019 12:00:00 AM EST [facility] ([facility]) Acetaminophen 325 MG / Oxycodone Hydrochloride 5 MG Or al Tablet [Percocet] 05/06/2019 12:00:00 AM EST [facility] ([facility]) Acetaminophen 325 MG / Oxycodone Hydrochloride 5 MG Or al Tablet [Percocet] 04/07/2019 12:00:00 AM EST [facility] ([facility]) Metronidazole 500 MG Oral Tablet 03/31/2019 12:00:00 AM EST [facility] ([facility]) Fluconazole 150 MG Oral Tablet 03/28/2019 12:00:00 AM EST [facility] ([facility]) Acetaminophen 325 MG / Oxycodone Hydrochloride 5 MG Or al Tablet [Percocet] 03/07/2019 12:00:00 AM EST [facility] ([facility]) Cyclobenzaprine hydrochloride 10 MG Oral Tablet 02/20/2019 12:00:00 AM EST [facility] ([facility]) Prednisone 10 MG Oral Tablet 02/13/2019 12:00:00 AM EST [facility] ([facility]) Cefuroxime 500 MG Oral Tablet 02/13/2019 12:00:00 AM EST [facility] ([facility]) Acetaminophen 325 MG / Oxycodone Hydrochloride 5 MG Or al Tablet [Percocet] 02/07/2019 12:00:00 AM EST [facility] ([facility]) Fluticasone Propionate 50 MCG/ACT Nasal Suspension 01/30/2019 12 :00:00 AM EDT [facility] ([facility]) Prednisone 10 MG Oral Tablet 01/30/2019 12:00:00 AM EDT [facility] ([facility]) repaglinide 1 MG Oral Tablet [Prandin] 01/27/2019 12:00:00 AM EDT [facility] ([facility]) 200 ACTUAT Albuterol 0.09 MG/ACTUAT Metered Dose Inhal er [Ventolin] 01/01/2019 12:00:00 AM EDT [facility] ([facility]) glipiZIDE XL 10MG Oral Tablet Extended Release 24 Hour 12/03/2018 12:00:00 AM EDT [facility] ([facility]) Metformin hydrochloride 500 MG Oral Tablet 12/03/2018 12:00:00 AM E DT [facility] ([facility]) atorvastatin 40 MG Oral Tablet 12/03/2018 12:00:00 AM EDT [facility] ([facility]) 24 HR venlafaxine 75 MG Extended Release Oral Capsule 12/03/2018 12:00:00 AM [facility] Levothyroxine Sodium 0.05 MG Oral Tablet 12/03/2018 12:00:00 AM EDT [facility] ([facility]) lansoprazole 30 MG Delayed Release Oral Capsule 12/03/2018 12:00:00 AM EDT [facility] ([facility]) Zolpidem tartrate 5 MG Oral Tablet 11/12/2018 12:00:00 AM EDT [facility] ([facility]) Cyclobenzaprine hydrochloride 10 MG Oral Tablet 10/28/2018 12:00:00 AM EDT [facility] ([facility]) D3-50 [id number] Oral Capsule 09/12/2018 12:00:00 AM EDT [facility] ([facility]) POLYETHYLENE GLYCOL 3350 142 MG/ML Oral Solution 08/14/2018 12:00:0 0 AM EDT [facility] ([facility]) Bisoprolol Fumarate 5 MG Oral Tablet 08/14/2018 12:00:00 AM EDT [facility] ([facility]) Losartan Potassium 25 MG Oral Tablet 08/14/2018 12:00:00 AM EDT [facility] ([facility]) Metoclopramide 10 MG Oral Tablet 08/14/2018 12:00:00 AM EDT [facility] ([facility]) OneTouch Ultra Blue In Vitro Strip 08/14/2018 12:00:00 AM EDT [facility] ([facility]) Pramipexole dihydrochloride 0.125 MG Oral Tablet 08/14/2018 12:00:0 0 AM EDT [facility] ([facility]) FIBER PO 05/28/2018 12:00:00 AM EST [facility] Compressor/Nebulizer Miscellaneous 11/10/2015 12:00:00 AM EDT [facility] ([facility]) Losartan Potassium 25 MG Oral Tablet [facility]
[2020-04-14] MEDS ORDERED: DICY20TA3 PO (14:25)
[2020-04-14] MEDS ORDERED: MELA10TA6 PO (14:35)
[2020-04-14] MEDS ORDERED: RAPA8CAP4 PO (14:39)
[2020-04-14] MEDS ORDERED: METO10TA2 PO (14:39)
[2020-04-14] MEDS ORDERED: VENTAER INH (14:41)
[2020-04-14] MEDS ORDERED: GI COCKTAIL 50ML BTL(HYOSCYAMINE/MAALOX/LIDOCAINE VISCOUS)(1:3:1) PO ONE (15:00)
--- NOTE | 2020-04-14 15:05 | REP ---
INDICATION: CHEST PAIN. COMPARISON: 03/11/2020. TECHNIQUE: SINGLE PORTABLE AP VIEW OF THE CHEST WAS PERFORMED. FINDINGS: There is moderate cardiomegaly unchanged. Interstitial prominence diffusely bilaterally is unchanged likely representing chronic fibrotic change. There is no definite superimposed acute infiltrate. There is calcification of the thoracic aorta. The mediastinal silhouette is unchanged. IMPRESSION: Cardiomegaly and stable chronic changes. No evidence of acute infiltrate. <Electronically signed by Aguila Shahid > 04/14/20 [id number]
[2020-04-14 15:33] LABS: BASO % 0.5 % (0.0-1.0); EOS # 0.2 10^3/uL (0.0-0.5); EOS % 2.4 % (0.0-3.0); HEMATOCRIT 35.4 % (36.0-47.0); HEMOGLOBIN 10.4 g/dl (12.0-15.5); LYMPH % 12.1 % (24.0-44.0); MEAN CORPUSCULAR HEMOGLOBIN 24.5 pg (27.0-33.0); MEAN CORPUSCULAR HGB CONC 29.4 g/dl (32.0-36.5); MEAN CORPUSCULAR VOLUME 83.5 fl (80.0-96.0); MONO # 1.1 10^3/uL (0.0-0.8); MONO % 12.4 % (0.0-5.0); NEUTROPHILS # 6.2 10^3/uL (1.5-8.5); NEUTROPHILS % 72.4 % (36.0-66.0); PLATELET COUNT, AUTOMATED 270 10^3/uL (150-450); RED BLOOD COUNT 4.24 10^6/uL (4.00-5.40); WHITE BLOOD COUNT 8.5 10^3/uL (4.0-10.0)
[2020-04-14 15:52] LABS: INR 1.17; PARTIAL THROMBOPLASTIN TIME 31.1 SECONDS (24.2-38.5); PROTHROMBIN TIME 15.1 SECONDS (12.5-14.3)
[2020-04-14 16:07] LABS: ALBUMIN 3.3 GM/DL (3.2-5.2); ALT/SGPT 21 U/L (12-78); BILIRUBIN,DIRECT 0.1 MG/DL (0.0-0.2); BILIRUBIN,TOTAL 0.4 MG/DL (0.2-1.0); BLOOD UREA NITROGEN 13 MG/DL (7-18); C REACTIVE PROTEIN QUANTITATIV 2.43 MG/DL (0.00-0.30); CALCIUM LEVEL 9.1 MG/DL (8.8-10.2); CARBON DIOXIDE LEVEL 32 MEQ/L (21-32); CHLORIDE LEVEL 101 MEQ/L (98-107); CPK CREATINE PHOSPHOKINASE 52 U/L (26-192); FREE T4 1.17 NG/DL (0.76-1.46); GLOMERULAR FILTRATION RATE > 60.0 (>39); GLUCOSE, FASTING 191 MG/DL (70-100); LIPASE 96 U/L (73-393); MB/CK RELATIVE INDEX 3.85 (< OR =4); NT-PRO BNP 12734 PG/ML (<125); POTASSIUM SERUM 3.8 MEQ/L (3.5-5.1); SODIUM LEVEL 139 MEQ/L (136-145); TOTAL PROTEIN 6.5 GM/DL (6.4-8.2); TROPONIN I 0.02 NG/ML (< 0.10)
[2020-04-14 16:14] LABS: ERYTHROCYTE SEDIMENTATION RATE 27 mm/hr (0-30)
[2020-04-14 16:23] LABS: RSV AMPLIFICATION NEGATIVE (NEGATIVE)
--- OUTSIDE RECORDS SUMMARY | 2020-04-14 16:42 | CCD ---
Author Author [facility] Organization [facility] Address Unknown Phone Unavailable Care Team Providers Care Paunch Trimmer Name Role Phone Shaben, E Jessica 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 Unavailable Unavailable Shaben, E Jessica 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 Unavailable Unavailable Shaben, E Jessica 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 Unavailable Unavailable Shaben, E Jessica 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 Unavailable Unavailable Shaben, E Jessica 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 Unavailable Unavailable Shaben, E Jessica 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 Unavailable Unavailable Shaben, E Jessica 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 Unavailable Unavailable Shaben, E Jessica 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 Unavailable Unavailable Shaben, E Jessica 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 Unavailable Unavailable Shaben, E Jessica 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 Unavailable Unavailable Shaben, E Jessica 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 Unavailable Unavailable Shaben, E Jessica 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 Unavailable Unavailable Shaben, E Jessica 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 Unavailable Unavailable Shaben, E Jessica 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 Unavailable Unavailable Shaben, E Jessica 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 Unavailable Unavailable Shaben, E Jessica 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 Unavailable Unavailable Shaben, E Jessica 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 Unavailable Unavailable Shaben, E Jessica 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 Unavailable Unavailable Shaben, E Jessica 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 Unavailable Unavailable Shaben, E Jessica 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 Unavailable Unavailable Shaben, E Jessica 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 Unavailable Unavailable Shaben, E Jessica 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 Unavailable Unavailable Shaben, E Jessica 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 Unavailable Unavailable DREJESSICA HERNANDEZ 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 Unavailable Unavaila JESSICA Guevara 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 Unavailable Unavaila JESSICA Guevara 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 Unavailable Unavaila ble DRE-JESSICA MCMAHAN 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 Unavailable Unavaila ble DRE-MCMAHAN, JESSICA BREWER 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 Unavailable Unavaila ble DRE-MCMAHAN, JESSICA BREWER 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 Unavailable Unavaila ble DRE-MCMAHAN, JESSICA BREWER 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 Unavailable Unavaila ble DRE-MCMAHAN, JESSICA BREWER 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 Unavailable Unavaila ble DRE-MCMAHAN, JESSICA BREWER 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 Unavailable Unavaila ble DRE-MCMAHAN, JESSICA BREWER 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 Unavailable Unavaila ble DRE-MCMAHAN, JESSICA BREWER 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 Unavailable Unavaila ble DRE-MCMAHAN, JESSICA BREWER 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 Unavailable Unavaila ble DRE-MCMAHAN, JESSICA BREWER 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 Unavailable Unavaila ble DRE-MCMAHAN, JESSICA BREWER 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 Unavailable Unavaila ble DRE-MCMAHAN, JESSICA BREWER 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 Unavailable Unavaila ble DRE-MCMAHAN, JESSICA BREWER 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 Unavailable Unavaila ble DRE-MCMAHAN, JESSICA BREWER 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 Unavailable Unavaila ble DRE-MCMAHAN, JESSICA BREWER 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 Unavailable Unavaila ble DRE-MCMAHAN, JESSICA BREWER 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 Unavailable Unavaila ble DRE-MCMAHAN, JESSICA BREWER 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 Unavailable Unavaila ble DRE-MCMAHAN, JESSICA BREWER 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 Unavailable Unavaila ble DRE-MCMAHAN, JESSICA BREWER 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 Unavailable Unavaila ble DRE-MCMAHAN, JESSICA BREWER 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 Unavailable Unavaila ble DRE-MCMAHAN, JESSICA BREWER 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 Unavailable Unavaila ble DRE-MCMAHAN, JESSICA BREWER 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 Unavailable Unavaila ble DRE-MCMAHAN, JESSICA BREWER 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 Unavailable Unavaila ble DRE-MCMAHAN, JESSICA BREWER 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 Unavailable Unavaila ble DRE-MCMAHAN, JESSICA BREWER 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 Unavailable Unavaila ble DRE-MCMAHAN, JESSICA BREWER 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 Unavailable Unavaila ble DRE-MCMAHAN, JESSICA BREWER 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 Unavailable Unavaila ble DRE-MCMAHAN, JESSICA BREWER 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 Unavailable Unavaila ble DRE-MCMAHAN, JESSICA BREWER 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 Unavailable Unavaila ble DRE-MCMAHAN, JESSICA BREWER 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 Unavailable Unavaila ble DRE-MCMAHAN, JESSICA BREWER 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 Unavailable Unavaila ble DRE-MCMAHAN, JESSICA BREWER 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 Unavailable Unavaila ble DRE-MCMAHAN, JESSICA BREWER 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 Unavailable Unavaila ble DRE-MCMAHAN, JESSICA BREWER 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 Unavailable Unavaila ble DRE-MCMAHAN, JESSICA BREWER 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 Unavailable Unavaila ble DRE-MCMAHAN, JESSICA BREWER 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 Unavailable Unavaila ble DRE-MCMAHAN, JESSICA BREWER 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 Unavailable Unavaila ble DRE-MCMAHAN, JESSICA BREWER 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 Unavailable Unavaila ble DRE-MCMAHAN, JESSICA BREWER 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 Unavailable Unavaila ble DRE-MCMAHAN, JESSICA BREWER 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 Unavailable Unavaila ble DRE-MCMAHAN, JESSICA BREWER 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 Unavailable Unavaila ble DRE-MCMAHAN, JESSICA BREWER 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 Unavailable Unavaila ble DRE-MCMAHAN, JESSICA BREWER 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 Unavailable Unavaila ble Brooks, L Malina RPA Unavailable Unavailable Brooks, L Malina RPA Unavailable Unavailable Boroks, L Malina RPA Unavailable Unavailable Brooks, L [...] RPA Unavailable Unavailable Joel HECTOR, Nevin Unavailable [phone] SHABEN, J CLAIRE 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 Unavailable Unavailable SHABEN, J CLAIRE 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 Unavailable Unavailable SHABEN, J CLAIRE 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 Unavailable Unavailable SHABEN, J CLAIRE 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 Unavailable Unavailable SHABEN, J CLAIRE 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 Unavailable Unavailable SHABEN, J CLAIRE 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 Unavailable Unavailable SHABEN, J CLAIRE 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 Unavailable Unavailable SHABEN, J CLAIRE 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 Unavailable Unavailable SHABEN, J CLAIRE 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 Unavailable Unavailable SHABEN, J CLAIRE 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 Unavailable Unavailable SHABEN, J CLAIRE 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 Unavailable Unavailable SHABEN, J CLAIRE 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 Unavailable Unavailable SHABEN, J CLAIRE 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 Unavailable Unavailable SHABEN, J CLAIRE 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 Unavailable Unavailable SHABEN, J CLAIRE 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 Unavailable Unavailable SHABEN, J CLAIRE 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 Unavailable Unavailable SHABEN, J CLAIRE 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 Unavailable Unavailable SHABEN, J CLAIRE 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 Unavailable Unavailable SHABEN, J CLAIRE 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 Unavailable Unavailable SHABEN, J CLAIRE 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 Unavailable Unavailable SHABEN, J CLAIRE 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 Unavailable Unavailable SHABEN, J CLAIRE 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 Unavailable Unavailable SHABEN, J CLAIRE 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 Unavailable Unavailable SHABEN, J CLAIRE 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 Unavailable Unavailable SHABEN, J CLAIRE 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 Unavailable Unavailable SHABEN, J CLAIRE 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 Unavailable Unavailable SHABEN, J CLAIRE 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 Unavailable Unavailable SHABEN, J CLAIRE 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 Unavailable Unavailable SHABEN, J CLAIRE 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 Unavailable Unavailable SHABEN, J CLAIRE 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 Unavailable Unavailable SHABEN, J CLAIRE 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 Unavailable Unavailable SHABEN, J CLAIRE 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 Unavailable Unavailable SHABEN, J CLAIRE 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 Unavailable Unavailable SHABEN, J CLAIRE 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 Unavailable Unavailable SHABEN, J CLAIRE 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 Unavailable Unavailable SHABEN, J CLAIRE 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 Unavailable Unavailable SHABEN, J CLAIRE 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 Unavailable Unavailable SHABEN, J CLAIRE 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 Unavailable Unavailable SHABEN, J CLAIRE 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 Unavailable Unavailable SHABEN, J CLAIRE 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 Unavailable Unavailable SHABEN, J CLAIRE 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 Unavailable Unavailable SHABEN, J CLAIRE 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 Unavailable Unavailable SHABEN, J CLAIRE 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 Unavailable Unavailable SHABEN, J CLAIRE 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 Unavailable Unavailable SHABEN, J CLAIRE 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 Unavailable Unavailable SHABEN, J CLAIRE 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 Unavailable Unavailable SHABEN, J CLAIRE 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 Unavailable Unavailable SHABEN, J CLAIRE 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 Unavailable Unavailable SHABEN, J CLAIRE 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 Unavailable Unavailable SHABEN, J CLAIRE 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 Unavailable Unavailable SHABEN, J CLAIRE 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 Unavailable Unavailable SHABEN, J CLAIRE 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 Unavailable Unavailable SHABEN, J CLAIRE 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 Unavailable Unavailable SHABEN, J CLAIRE 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 Unavailable Unavailable SHABEN, J CLAIRE 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 Unavailable Unavailable SHABEN, J CLAIRE 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 Unavailable Unavailable SHABEN, J CLAIRE 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 Unavailable Unavailable SHABEN, J CLAIRE 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 Unavailable Unavailable SHABEN, J CLAIRE 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 Unavailable Unavailable SHABEN, J CLAIRE 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 Unavailable Unavailable SHABEN, J CLAIRE 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 Unavailable Unavailable SHABEN, J CLAIRE 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 Unavailable Unavailable SHABEN, J CLAIRE 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 Unavailable Unavailable SHABEN, J CLAIRE 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 Unavailable Unavailable SHABEN, J CLAIRE 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 Unavailable Unavailable SHABEN, J CLAIRE 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 Unavailable Unavailable SHABEN, J CLAIRE 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 Unavailable Unavailable Carguello J Cesia DO [...] Unavailable CarguelloRobbi Cesia DO Unavailable Unavailable CarguelloRobbi Cseia DO Unavailable Unavailable CarguelloRobbi Cesia DO Unavailable [...] Cesia DO Unavailable Unavailable RADHA, JESSICA BREWER 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 Unavailable Unavaila ble RADHA, JESSICA BREWER 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 Unavailable Unavaila ble RADHA, JESSICA BREWER 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 Unavailable Unavaila ble DRE-KOJO, JESSICA BREWER 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 Unavailable Unavaila ble DRE-MCMAHAN, JESSICA BREWER 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 Unavailable Unavaila ble DRE-MCMAHAN, JESSICA BREWER 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 Unavailable Unavaila ble DRE-MCMAHAN, JESSICA BREWER 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 Unavailable Unavaila ble DRE-MCMAHAN, JESSICA BREWER 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 Unavailable Unavaila ble DRE-MCMAHAN, JESSICA BREWER 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 Unavailable Unavaila ble DRE-MCMAHAN, JESSICA BREWER 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 Unavailable Unavaila ble DRE-MCMAHAN, JESSICA RBEWER 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 Unavailable Unavaila ble DRE-MCMAHAN, JESSICA BREWER 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 Unavailable Unavaila ble DRE-MCMAHAN, JESSICA BREWER 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 Unavailable Unavaila ble DRE-MCMAHAN, JESSICA BREWER 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 Unavailable Unavaila ble DRE-MCMAHAN, JESSICA BREWER 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 Unavailable Unavaila ble DRE-MCMAHAN, JESSICA BREWER 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 Unavailable Unavaila ble DRE-MCMAHAN, JESSICA BREWER 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 Unavailable Unavaila ble DRE-MCMAHAN, JESSICA BREWER 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 Unavailable Unavaila ble DRE-MCMAHAN, JESSICA BREWER 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 Unavailable Unavaila ble DRE-MCMAHAN, JESSICA BREWER 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 Unavailable Unavaila ble DRE-MCMAHAN, JESSICA BREWER 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 Unavailable Unavaila ble DRE-MCMAHAN, JESISCA BREWER 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 Unavailable Unavaila ble DRE-MCMAHAN, JESSICA BREWER 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 Unavailable Unavaila ble DRE-MCMAHAN, JESSICA BREWER 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 Unavailable Unavaila ble DRE-MCMAHAN, JESSICA BREWER 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 Unavailable Unavaila ble DRE-MCMAHAN, JESSICA BREWER 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 Unavailable Unavaila ble DRE-MCMAHAN, JESSICA BREWER 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 Unavailable Unavaila ble DRE-MCMAHAN, JESSICA BREWER 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 Unavailable Unavaila ble DRE-MCMAHAN, JESSICA BREWER 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 Unavailable Unavaila ble DRE-MCMAHAN, JESSICA BREWER 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 Unavailable Unavaila ble DRE-MCMAHAN, JESSICA BREWER 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 Unavailable Unavaila ble DRE-MCMAHAN, JESSICA BREWER 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 Unavailable Unavaila ble DRE-MCMAHAN, JESSICA BREWER 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 Unavailable Unavaila ble DRE-MCMAHAN, JESSICA BREWER 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 Unavailable Unavaila ble DRE-MCMAHAN, JESSICA BREWER 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 Unavailable Unavaila ble DRE-MCMAHAN, JESSICA BREWER 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 Unavailable Unavaila ble DRE-MCMAHAN, JESSICA BREWER 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 Unavailable Unavaila ble DRE-MCMAHAN, GERMÁN 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 Unavailable Unavaila ble DRE-MCMAHAN, GERMÁN 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 Unavailable Unavaila ble DRE-MCMAHAN, GERMÁN 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 Unavailable Unavaila ble DRE-MCMAHAN, GERMÁN 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 Unavailable Unavaila ble DRE-MCMAHAN, GERMÁN 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 Unavailable Unavaila ble DRE-MCMAHAN, GERMÁN 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 Unavailable Unavaila ble DRE-MCMAHAN, GERMÁN 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 Unavailable Unavaila ble DRE-MCMAHAN, GERMÁN 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 Unavailable Unavaila ble DRE-MCMAHAN, GERMÁN 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 Unavailable Unavaila Jorge Alberto Khalil MD [...] Unavailable Jorge Alberto Daniels MD Unavailable Unavailable Breathitt, V FELIPE PA-C Unavailable Unavailable Breathitt, V FELIPE PA-C Unavailable Unavailable Adriana, V FELIPE PA-C Unavailable Unavailable Breathitt, V FELIPE PA-C Unavailable Unavailable Breathitt, V FELIPE PA-C Unavailable Unavailable Breathitt, V FELIPE PA-C Unavailable Unavailable Kyra Carter [...] Paula PA Unavailable Unavailable Edmundo, K Misty 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 Unavailable Unavailable Edmundo, K Misty 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 Unavailable Unavailable Edmundo, K Misty 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 Unavailable Unavailable Edmundo, K Misty 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 Unavailable Unavailable Edmundo, K Misty 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 Unavailable Unavailable Edmundo, K Misty 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 Unavailable Unavailable Edmundo, K Misty 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 Unavailable Unavailable Edmundo, K Misty 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 Unavailable Unavailable Edmundo, K Misty 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 Unavailable Unavailable Edmundo, K Misty 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 Unavailable Unavailable Edmundo, K Misty 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 Unavailable Unavailable Edmundo, K Misty 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 Unavailable Unavailable Edmundo, K Misty 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 Unavailable Unavailable Edmundo, K Misty 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 Unavailable Unavailable Edmundo, K Misty 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 Unavailable Unavailable Edmundo, K Misty 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 Unavailable Unavailable Edmundo, K Misty 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 Unavailable Unavailable Edmundo, K Mitsy 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 Unavailable Unavailable Edmundo, K Misty 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 Unavailable Unavailable Edmundo, K Misty 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 Unavailable Unavailable Edmundo, K Misty 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 Unavailable Unavailable Edmundo, K Misty 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 Unavailable Unavailable Edmundo, K Misty 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 Unavailable Unavailable Edmundo, K Misty 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 Unavailable Unavailable Edmundo, K Misty 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 Unavailable Unavailable Edmundo, K Misty 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 Unavailable Unavailable Edmundo, K Misty 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 Unavailable Unavailable Edmundo, K Misty 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 Unavailable Unavailable Edmundo, K Misty 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 Unavailable Unavailable Edmundo, K Misty 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 Unavailable Unavailable Edmundo, K Misty 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 Unavailable Unavailable Edmundo, K Misty 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 Unavailable Unavailable Edmundo, K Misty 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 Unavailable Unavailable Edmundo, K Misty 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 Unavailable Unavailable KRUNAL Wheeler, Claire Unavailable [...] Jeremiah, Jorge Alberto Canchola MD Unavailable Unavailable Jereimah, Jorge Alberto Canchola MD Unavailable Unavailable Jeremiah, [...] Canchola MD Unavailable Unavailable Eleazar, I Irena 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 Unavailable Unavailable Eleazar, I Irena 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 Unavailable Unavailable Eleazar, I Irena 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 Unavailable Unavailable Eleazar, I Irena 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 Unavailable Unavailable Eleazar, I Irena 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 Unavailable Unavailable Eleazar, I Irena 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 Unavailable Unavailable Eleazar, I Irena 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 Unavailable Unavailable Eleazar, I Irena SHEET METAL MECHANIC Unavailable Unavailable Eleazar, I Irena SHEET METAL MECHANIC Unavailable Unavailable Eleazar, I Irena SHEET METAL MECHANIC Unavailable Unavailable Eleazar, I Irena SHEET METAL MECHANIC Unavailable Unavailable Eleazar, I Irena SHEET METAL MECHANIC Unavailable Unavailable Eleazar, I Irena SHEET METAL MECHANIC Unavailable Unavailable Eleazar, I Irena SHEET METAL MECHANIC Unavailable Unavailable Eleazar, I Irena SHEET METAL MECHANIC Unavailable Unavailable Eleazar, I Irena SHEET METAL MECHANIC Unavailable Unavailable Eleazar, I Irena SHEET METAL MECHANIC Unavailable Unavailable Eleazar, I Irena SHEET METAL MECHANIC Unavailable Unavailable Eleazar, I Irena SHEET METAL MECHANIC Unavailable Unavailable Eleazar, I Irena SHEET METAL MECHANIC Unavailable Unavailable Eleazar, I Irena SHEET METAL MECHANIC Unavailable Unavailable Eleazar, I Irena SHEET METAL MECHANIC Unavailable Unavailable Eleazar, I Irena SHEET METAL MECHANIC Unavailable Unavailable Eleazar, I Irena SHEET METAL MECHANIC Unavailable Unavailable Eleazar, I Irena SHEET METAL MECHANIC Unavailable Unavailable Eleazar, I Irena SHEET METAL MECHANIC Unavailable Unavailable Eleazar, I Irena SHEET METAL MECHANIC Unavailable Unavailable Eleazar, I Irena SHEET METAL MECHANIC Unavailable Unavailable Eleazar, I Irena SHEET METAL MECHANIC Unavailable Unavailable Eleazar, I Irena SHEET METAL MECHANIC Unavailable Unavailable Eleazar, I Irena SHEET METAL MECHANIC Unavailable Unavailable Eleazar, I Irena SHEET METAL MECHANIC Unavailable Unavailable Eleazar, I Irena SHEET METAL MECHANIC Unavailable Unavailable Eleazar, I Irena SHEET METAL MECHANIC Unavailable Unavailable Eleazar, I Irena SHEET METAL MECHANIC Unavailable Unavailable Eleazar, I Irena SHEET METAL MECHANIC Unavailable Unavailable Eleazar, I Irena SHEET METAL MECHANIC Unavailable Unavailable Eleazar, I Irena SHEET METAL MECHANIC Unavailable Unavailable Eleazar, I Irena SHEET METAL MECHANIC Unavailable Unavailable Eleazar, I Irena SHEET METAL MECHANIC Unavailable Unavailable Eleazar, I Irena SHEET METAL MECHANIC Unavailable Unavailable Eleazar, I Irena SHEET METAL MECHANIC Unavailable Unavailable Eleazar, I Irena SHEET METAL MECHANIC Unavailable Unavailable Eleazar, I Irena SHEET METAL MECHANIC Unavailable Unavailable Eleazar, I Irena SHEET METAL MECHANIC Unavailable Unavailable Eleazar, I Irena SHEET METAL MECHANIC Unavailable Unavailable Eleazar, I Irena SHEET METAL MECHANIC Unavailable Unavailable Eleazar, I Irena SHEET METAL MECHANIC Unavailable Unavailable Eleazar, I Irena SHEET METAL MECHANIC Unavailable Unavailable Eleazar, I Irena SHEET METAL MECHANIC Unavailable Unavailable Eleazar, I Irena SHEET METAL MECHANIC Unavailable Unavailable Eleazar, I Irena SHEET METAL MECHANIC Unavailable Unavailable Eleazar, I Irena SHEET METAL MECHANIC Unavailable Unavailable Eleazar, I Irena SHEET METAL MECHANIC Unavailable Unavailable Eleazar, I Irena SHEET METAL MECHANIC Unavailable Unavailable Eleazar, I Irena SHEET METAL MECHANIC Unavailable Unavailable Eleazar, I Irena SHEET METAL MECHANIC Unavailable Unavailable Eleazar, I Irena SHEET METAL MECHANIC Unavailable Unavailable Eleazar, I Irena SHEET METAL MECHANIC Unavailable Unavailable Eleazar, I Irena SHEET METAL MECHANIC Unavailable Unavailable Eleazar, I Irena SHEET METAL MECHANIC Unavailable Unavailable Eleazar, I Irena SHEET METAL MECHANIC Unavailable Unavailable Eleazar, I Irena SHEET METAL MECHANIC Unavailable Unavailable Re-disclosure Warning The records [...] by Article 27-F of the [facility] Public Health law. If you continue you may have access to information: Regarding HIV / AIDS; Provided by facilities licensed or operated by the [facility] Office of Mental Health; or Provided by the [facility] Office for People With Developmental Disabilities. If such information is present, then the following [facility] mandated warning applies: This information has [...] law may result in a fine or fci sentence or both. A general authorization for the release of medical or other information is NOT sufficient authorization for further disc losure. Advance Directives Directive Description Teaching Supervisor Rug Receiving Clerk Status Observation Descr iption Data Source(s) Ebola [...] Screening Performed completed Ebol a Screening Performed [facility] ([facility]) Note: Within the last month, have [...] [place] 03/30/2020 09:56:00 A M EST Lab [facility] Outpatient Attender: FELIPE YOUNGER.BIN 12:00:00 AM EST - 03/15/2020 09:07:29 AM EST [facility] Outpatient Attender: Puala [email or web address] 06/2019 12:00:00 AM EST - 03/04/2020 02:41:25 PM EST [facility] Outpatient [email or web address] 03/03/2020 09:13:27 AM EST [facility] Outpatient Referrer: Kyra [email or web address]-[email or web address].KANIKA 01/31 12:00:00 AM EST [facility] Unknown<td ID="encounterTypeDescriptionI D0">Chart Update</td><td>Nevin Maldonado RN</td><td></td><td>02/13/2020</td><td></td> Attender: Nevin Maldonado RN 02/13/2020 08:51:00 AM EST - 02/13/2020 11:59:00 PM [facility]) Outpatient<td ID="encounterTypeDescripti onID1">Chronic Disease Follow- up</td><td>Jessica Carbajal NP</td><td>[facility]</td><td>02/10/2020</td><td><content ID="encounterDiagnosisID1-0">Atrial Fibrillation and Flutter</content>, <content ID="encounterDiagnosisID1- 1">Cardiomyopathy</content>, <content ID="encounterDiagnosisID1-2">Coronary Artery Disease</content>, <content ID="encounterDiagnosisID1-3">Diabetes Mellitus Type 2 with Complication</content>, <content ID="encounterDiagnosisID1- 4">Emphysema</content>, <content ID="encounterDiagnosisID1-5">Generalized Anxiety Disorder</content>, <content ID="encounterDiagnosisID1-6">Hypertension (systemic)</content>, <content ID="encounterDiagnosisID1-7">Hyperlipidemia</content>, <content ID="encounterDiagnosisID1-8">Nicotine Dependence</content>, <content ID="encounterDiagnosisID1-9">Restless Legs Syndrome</content></td> Attender: Jessica [place] [facility] 02/10/2020 02:03:00 PM EST - 02/10/2020 [...] Sanaz barba 02/02/2020 09:15:00 AM EST [facility] ([facility]) Outpatient [email or web address] 01/21/2020 01:06:49 PM EDT [facility] Outpatient [email or web address] 12/10/2019 08:32:16 AM EDT [facility] Outpatient Attender: Misty Wyatt NP [place] 02:45:00 PM EDT [facility] ([facility]) Outpatient [email or web address] 10/29/2019 08:32:44 AM EDT [facility] Unknown<td ID="encounterTypeDescriptionI D2">Correspondence</td><td>Jessica Carbajal NP</td><td></td><td>10/20/2019</td><td></td> Attender: Jessica [place] 10/20/2019 11:00:00 AM EDT - 10/20/2019 11:59:00 PM EDT [facility]) Unknown<td ID="encounterTypeDescriptionI D3">Referral Order</td><td>Claire Carbajal NP</td><td></td><td>10/13/2019</td><td></td> Attender: CLAIRE CARBAJAL NP 10/13/2019 10:15:00 AM EDT - 10/13/2019 11:59:00 PM EDT [facility]) Outpatient<td ID="encounterTypeDescripti onID4">Chronic Disease Follow- up</td><td>Jessica Carbajal NP</td><td>[facility]</td><td>10/10/2019</td><td><content ID="encounterDiagnosisID4-0"> Anemia</content>, <content ID="encounterDiagnosisID4-1">Atrial Fibrillation and Flutter</content>, <content ID="encounterDiagnosisID4-2">Coronary Artery Disease</content>, <content ID="encounterDiagnosisID4-3">Diabetes Mellitus Type 2 with Complication</content>, <content ID="encounterDiagnosisID4- 4">Hypertension (systemic)</content>, <content ID="encounterDiagnosisID4- 5">Emphysema</content>, <content ID="encounterDiagnosisID4-6">Generalized Anxiety Disorder</content>, <content ID="encounterDiagnosisID4-7"> Hyperlipidemia</content>, <content ID="encounterDiagnosisID4-8">Abdominal Pain--epigastric</content>, <content ID="encounterDiagnosisID4-9">Chest Pain</content>, <content ID="encounterDiagnosisID4-10">Sinusitis</content>, <content ID="encounterDiagnosisID4-11">Dermatophytosis</content></td> Attender: Jessica LANCASTER [facility] 10/10/2019 01:02:00 PM EDT - 10/10/2019 02:36:15 PM EDT DermatophytosisSinusitisChest PainAbdomi nal Pain--epigastricDermatophytosisSinusitisChest PainAbdominal Pain--epigastricDermatophytosisSinusitisChest PainAbdominal Pain--epigastricCoronary Artery DiseaseCoronary Artery DiseaseCoronary Artery DiseaseAnemiaAnemiaAnemiaAtrial Fibrillation and FlutterAtrial Fibrillation and FlutterAtrial Fibrillation and FlutterGeneralized Anxiety DisorderGeneralized Anxiety DisorderGeneralized Anxiety DisorderHyperlipidemiaEmphysemaHypertension (systemic)Diabetes Mellitus Type 2 with ComplicationHyperlipidemiaEmphysemaHypertension (systemic)Diabetes Mellitus Type 2 with ComplicationHyperlipidemiaEmphysemaHypertension (systemic)Diabetes Mellitus Type 2 with Complication [facility] ([facility]) Dermatophytosis Sinusitis Chest Pain Abdominal Pain--epigastric [...] Complicati on Outpatient Attender: Misty Wyatt NP [place] 03:45:00 PM EDT [facility] ([facility]) Outpatient<td ID="encounterTypeDescripti onID5">Medication Order</td><td>Irena Bush NP</td><td></td><td>09/29/2019</td><td></td> Attender: Irena Bush NP 09/29/2019 05:55:00 PM EDT - 09/29/2019 11:59:00 PM EDT [facility] ([facility]) Outpatient [email or web address] 09/18/2019 12:52:15 PM EDT [facility] Outpatient Referrer: Paula ERVINKANIKA-[email or web address].KANIKA 12:00:00 AM EDT [facility] Outpatient Attender: Paula YOUNGER.[email or web address] 05/2019 12:00:00 AM EDT - 09/02/2019 02:52:20 PM EDT [facility] Outpatient Attender: Sushant Gómez/Martha keenan 08/22/2019 10:45:00 AM EDT [facility] ([facility] Outpatient [email or web address] 08/05/2019 04:26:21 PM EDT [facility] Outpatient<td ID="encounterTypeDescripti onID6">Acute L2</td><td>Jessica Carbajal 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</td><td>[facility]</td><td>07/24/2019</td><td><content ID="encounterDiagnosisID6-0">Complex Regional Pain Syndrome Type I Upper Limb</content>, <content ID="encounterDiagnosisID6-1">Low Back Pain</content></td> Attender: 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 Carbajal 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 [facility] 07/24/2019 09:24:00 AM EDT - 07/24/2019 [...] per Limb Outpatient<td ID="encounterTypeDescripti onID7">Acute L3</td><td>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 0 07/21/2019 08:06:00 AM EDT [facility] Outpatient Attender: Malina Gómez/[place]/José Antonio/R eindl 07/03/2019 10:00:00 AM EDT [facility] Outpatient<td ID="encounterTypeDescripti onID8">Telephone Encounter</td><td>Cesia Blackwell DO</td><td></td><td>06/23/2019</td><td><content [...] Cardiomyopathy Coronary Artery Disease Outpatient Attender: Malina Gómez/[place]/José Antonio/R eindl 06/12/2019 01:00:00 PM EDT [facility] ([facility], ) Unknown<td ID="encounterTypeDescriptionI D9">Correspondence</td><td>Cesia Blackwell DO</td><td></td><td>06/11/2019</td><td></td> Attender: Cesia Blackwell DO 06/11/2019 08:46:00 AM EDT - 06/11/2019 11:59:00 PM EDT [facility] ([facility]) Unknown<td ID="encounterTypeDescriptionI D10">Referral Order</td><td>Cesia Blackwell DO</td><td></td><td>06/11/2019</td><td></td> Attender: Cesia Blackwell DO 06/11/2019 08:43:00 AM EDT - 06/11/2019 11:59:00 PM EDT [facility] Unknown<td ID="encounterTypeDescriptionI D11">Chart Update</td><td>Claire Wheeler RN</td><td></td><td>06/09/2019</td><td></td> Attender: Claire Wheeler RN 06/09/2019 03:34:00 PM EDT - 06/09/2019 11:59:00 PM EDT [facility] Unknown<td ID="encounterTypeDescriptionI D12">AHR</td><td>Cesia Blackwell DO</td><td>[facility]</td><td>06/09/2019</td><td><content ID="[id number]">Routine History and Physical</content></td> Attender: Cesia Blackwell DO [facility] 06/09/2019 11:49:00 AM EDT - 06/09/2019 01:43:21 PM EDT Routine History and PhysicalRoutine Hist ory and PhysicalRoutine History and PhysicalRoutine History and PhysicalRoutine History and PhysicalRoutine History and PhysicalRoutine History and Physical [facility] ([facility]) Routine History and Physical Routine History and Physical Routine History and Physical Routine History and Physical Routine History and Physical Routine History and Physical Routine History and Physical Unknown<td ID="encounterTypeDescriptionI D13">Chart Prep</td><td>Cesia Blackwell DO</td><td></td><td>05/23/2019</td><td></td> Attender: Cesia Blackwell DO 05/23/2019 08:55:00 AM EST - 05/23/2019 11:59:00 PM EST [facility] ([facility]) Outpatient Referrer: Sushant Daniels MD 04/09/2019 02:50:0 0 PM EST [facility] Outpatient<td ID="encounterTypeDescripti onID14">Medication Order</td><td>Jessica Carbajal NP</td><td></td><td>03/31/2019</td><td></td> Attender: Jessica LANCASTER 03/31/2019 09:51:00 AM EST - 03/31/2019 11:59:00 PM EST [facility] ([facility]) Outpatient Attender: Jessica LANCASTER 03/28/2019 07:01:00 P M EST [facility] Outpatient<td ID="encounterTypeDescripti onID15">Hospital Follow-up</td><td>Jessica Carbajal NP</td><td>[facility]</td><td>03/28/2019</td><td><content ID="[id number]">Vaginitis</content>, <content ID="[id number]">Diabetes Mellitus Type 2 with Complication</content>, <content ID="[id number]">Congestive Heart Failure</content>, <content ID="[id number]">Chronic Obstructive Pulmonary Disease</content></td> Attender: Jessica LANCASTER [facility] 03/28/2019 10:52:00 AM EST - 03/28/2019 [...] AM EST - 02/20/2019 01:57:47 PM EST [facility] Outpatient Attender: Sushant Gómez/Tony/José Antonio/Aurora keenan 02/18/2019 01:30:00 PM EST [facility] ([facility] Unknown<td ID="encounterTypeDescriptionI D16">[Patient Encounter]</td><td>Cesia Blackwell DO</td><td></td><td>02/13/2019</td><td></td> Attender: Cesia Blackwell DO 02/13/2019 03:55:00 PM EST - 02/13/2019 11:59:00 PM EST [facility] ([facility]) Outpatient [email or web address] 01/09/2019 11:16:53 AM EDT [facility] Immunizations Vaccine Date Status Description Data Source(s) INFLUENZA VACCINE QUADRIVALENT 2019- (65 YR UP)/MF59 C.1/PF 02/02/2020 12:00:00 AM EST completed [facility] Influenza, high dose seasonal 01/22/2020 08:52:00 AM EDT complet ed Influenza, high-dose (over 65) 2 01/22/2020 Complete (Reported) Merle ent [facility] ([facility]) Medications Medication Brand Name Start Date [...] MOUTH TWICE A DAY NEEDED SOLD: 04/03/2020 [facility] Cyclobenzaprine hydrochloride 10 MG Oral Tablet CYCLOBENZAPR [...] total) by mouth mayco ly with dinner [facility] Atrial fibrillation Losartan Potassium 50 MG Oral Tablet losartan (COZAAR) 50 MG tablet losartan (COZAAR) 50 MG tablet 03/04/2020 12:00:00 AM EST 50 mg Oral active Hypertension, essential Take 1 tablet (50 mg total) by mouth daily [facility] Hypertension, essential 5-325 mg 02/21/2020 12:00:00 AM [...] 3 (three) times a day as needed [facility] montelukast 10 MG Oral Tablet MONTELUKAST SODIUM 02/11/2020 12:0 0:00 AM EST tablet 30 TAKE ONE TABLET BY MOUTH AT BEDT TASHA TAKE ONE TABLET BY MOUTH AT BEDTIME SOLD: 02/12/2020 [facility] montelukast 10 MG Oral Tablet montelukast (SINGULAIR) 10 MG tablet montelukast (SINGULAIR) 10 MG tablet 02/11/2020 12:00:00 AM EST 10 mg Oral active Take 10 mg by mouth daily [facility] montelukast 10 MG Oral Tablet MONTELUKAST SODIUM [...] A DAY FOR 7 DAYS SOLD: 02/02/2020 [facility] FLUAD QUADRIVALENT 0.5 ML PRSY [id number] 02/02/2020 12:00:00 AM EST active Inject as directed [facility] Amoxicillin 875 MG / Clavulanate 125 MG Oral Tablet Am oxicillin/Clavulanate Potassium 02/02/2020 12:00:00 AM EST active [facility] 5-325 mg 01/23/2020 12:00:00 AM EDT tablet [...] A DAY NEEDED FOR BREATHING SOLD: 11/21/2019 [facility] rivaroxaban 20 MG Oral Tablet rivaroxaban (XARELTO) 20 MG TABS rivaroxaban (XARELTO) 20 MG TABS 11/18/2019 12:00:00 AM EDT 20 mg Oral aborted Take 1 tablet (20 mg total) by mouth daily with dinner [facility] Acetaminophen 325 MG / Oxycodone Hydroch loride [...] DAILY DOSE = 4 TABLETS SOLD: 10/28/2019 [facility] 875-125 mg 10/10/2019 12:00:00 AM EDT tablet 20 TAKE ONE TABLET BY MOUTH TWO TIMES A DAY WITH FOOD TAKE ONE TABLET BY MOUTH TWO TIMES A DAY WITH FOOD INA [facility] silodosin 8 MG Oral Capsule Silodosin 8 MG Oral Capsul e Silodosin 8 MG Oral Capsule 10/10/2019 12:00:00 AM EDT active silodosin 8 MG Oral Capsule [facility] ([facility]) Estradiol 0.1 MG/ML Vaginal Cream Estradiol 0.1 MG/GM Vaginal Cream Estradiol 0.1 MG/GM Vaginal Cream 10/10/2019 12:00:00 AM EDT 1 active estradiol 0.1 MG/ML Vaginal Cream [facility] ([facility]) 30 mg 10/10/2019 12:00:00 AM EDT capsule,delayed release (DR/EC) 90 TAKE ONE CAPSULE BY MOUTH EVERY DAY TAKE ONE CAPSULE BY MOUTH EVERY DAY SOLD: 10/10/2019 [facility] Nystatin 100 UNT/MG Topical Powder 100,000 unit/gram [...] CAPSULE BY MOUTH EVERY DAY SOLD: 01/15/2020 [facility] Amoxicillin 875 MG / Clavulanate 125 MG Oral Tablet Amoxicillin-Pot Clavulanate 875-125 MG Oral Tablet Amoxicillin-Pot Clavulanate 875-125 MG Oral Tablet 10/10/2019 12:00:00 AM EDT 1 aborted amoxicillin 875 MG / clavulanate 125 MG Oral Tablet [facility] ([facility]) 30 mg 10/10/2019 12:00:00 AM EDT capsule,delayed release (DR/EC) 90 TAKE ONE CAPSULE BY MOUTH EVERY DAY TAKE ONE CAPSULE BY MOUTH EVERY DAY SOLD: 04/07/2020 [facility] lansoprazole 30 MG Delayed Release Oral Capsule Lansoprazole 30 MG Oral Capsule Delayed Release Lansoprazole 30 MG Oral Capsule Delayed Release 2019 12:00:00 AM EDT 1 active lansoprazole 30 MG Delayed Release Oral Capsule [facility] ([facility]) 24 HR venlafaxine 75 MG Extended Release Oral Capsule Venlafaxine HCl ER 75 MG Oral Capsule Extended Release 24 Hour Venlafaxine HCl ER 75 MG Oral Capsule Extended Release 24 Hour 10/10/2019 12:00:00 AM EDT 1 active 24 HR venlafaxine 75 MG Extended Release Oral Capsule [facility] ([facility]) glipiZIDE XL 10 MG Oral Tablet Extended Release 24 Domonique r glipiZIDE XL 10 MG Oral Tablet Extended Release 24 Hour 10/10/2019 12:00:00 AM EDT 1 active glipiZIDE XL [facility] ([facility]) Fluticasone Propionate 50 MCG/ACT Nasal Suspension Flu ticasone Propionate 50 MCG/ACT Nasal Suspension 10/10/2019 12:00:00 AM EDT completed fluticasone propionate 0.05 MG/ACTUAT Metered Dose Nasal [place] [facility] ([facility]) Levothyroxine Sodium 0.05 MG Oral Tablet Levothyroxine Sodium 50 MCG Oral Tablet Levothyroxine Sodium 50 MCG Oral Tablet 10/10/2019 12:00:00 AM EDT 1 active levothyroxine sodium 0.05 MG Ora l Tablet [facility] ([facility]) atorvastatin 40 MG Oral Tablet Atorvastatin Calcium 40 MG Oral Tablet Atorvastatin Calcium 40 MG Oral Tablet 10/10/2019 12:00:00 AM EDT 1 active [facility]atin 40 MG [facility] Bisoprolol Fumarate 5 MG Oral Tablet Bisoprolol Fumarate 5 M G Oral Tablet 10/10/2019 12:00:00 AM EDT aborted bisoprolol fumarate 5 MG Oral Tablet [facility] ([facility]) 50 mcg/actuation 10/10/2019 12:00:00 AM EDT spray,suspension 16 2 SPRAYS IN EACH NOSTRIL ONCE DAILY 2 SPRAYS IN EACH NOSTRIL ONCE DAILY SOLD: 10/10/2019 [facility] Nystatin 100 UNT/MG Topical Powder Nystatin [id number] UNI T/GM External Powder Nystatin 691584 UNIT/GM External Powder 10/10/2019 12:00:00 AM EDT 1 active nystatin 100 UNT/MG Topical Powd er [facility] ([facility]) 50 mcg 10/10/2019 12:00:00 AM EDT [...] CAPSULE BY MOUTH EVERY DAY SOLD: 01/15/2020 [facility] atorvastatin 40 MG Oral Tablet ATORVASTATIN [...] 10/07/2019 12:00:00 AM EDT active [facility] ([facility]) 20 mg 10/07/2019 12:00:00 AM EDT tablet [...] hydrochlorid e 10 MG Oral Tablet [facility] ([facility]) Cyclobenzaprine hydrochloride 10 MG Oral Tablet [...] hydrochloride 5 MG Oral Tablet [Percocet] [facility] ([facility]) [facility] Miconazole 7 2% Vaginal Cream [facility] Miconazole 7 2% Vagina l Cream 07/25/2019 12:00:00 AM EDT 1 aborted [facility] Cuong onazole 7 [facility] ([facility]) OneTouch Ultra Blue In Vitro Strip OneTouch Ultra Blue In Vi tro Strip 07/24/2019 12:00:00 AM EDT active OneTouc h Ultra Blue [facility] ([facility]) BLOOD SUGAR DIAGNOSTIC 07/24/2019 12:00:00 AM EDT strip 250 TEST THREE TIMES A DAY NEEDED DIRECTED TEST THREE TIMES A DAY NEEDED DIRECTED SOLD: 07/25/2019 [facility] D3-50 1.25 MG (76847 UT) Oral Capsule D3-50 1.25 MG (78769 U T) Oral Capsule 07/24/2019 12:00:00 AM EDT 1 active D3-50 [facility] ([facility]) 200 ACTUAT Albuterol 0.09 MG/ACTUAT Mete red Dose Inhaler [Ventolin] Ventolin HFA 108 (90 Base) MCG/ACT Inhalation Aerosol Solution Ventolin HFA 108 (90 Base) MCG/ACT Inhalation Aerosol Solution 07/24/2019 12:00:00 AM EDT 1 active [id number] 200 ACTUAT albuter ol 0.09 MG/ACTUAT Metered Dose Inhaler [Ventolin] [facility] ([facility]) silodosin 8 MG Oral Capsule [Rapaflo] Rapaflo 8 MG Ora l Capsule Rapaflo 8 MG Oral Capsule 07/21/2019 12:00:00 AM EDT abort ed silodosin 8 MG Oral Capsule [Rapaflo] [facility] ([facility]) 500 mg 07/21/2019 12:00:00 AM EDT [...] rivaroxaban 20 MG Oral Tablet [Xarelto] [facility] ([facility]) Furosemide 40 MG Oral Tablet Furosemide 40 MG Oral Tablet 12:00:00 AM EDT 1 active furosemide 40 MG Oral Tablet [facility] ([facility]) Fluconazole 150 MG Oral Tablet [Diflucan] Diflucan 150 MG Oral Tablet Diflucan 150 MG Oral Tablet 07/21/2019 12:00:00 AM EDT aborted fluconazole 150 MG Oral Tablet [Diflucan] [facility] ([facility]) Metronidazole 500 MG Oral Tablet [Flagyl] Flagyl 500 M G Oral Tablet Flagyl 500 MG Oral Tablet 07/21/2019 12:00:00 AM EDT 1 abo rted metronidazole 500 MG Oral Tablet [Flagyl] [facility] ([facility]) 150 mg 07/21/2019 12:00:00 AM EDT tablet 2 TAKE ONE TABLET BY MOUTH NOW, MAY REPEAT IN 10 TO 14 DAYS NEEDED TAKE ONE TABLET BY MOUTH NOW, MAY REPEAT IN 10 TO 14 DAYS NEEDED SOLD: 07/21/2019 [facility] Melatonin 10 MG Oral Tablet Disintegrating [facility] Saima atonin 10 MG Oral Tablet Disintegrating 07/21/2019 12:00:00 AM EDT 1 active [facility] Melatonin [facility] ([facility]) 5-325 mg 07/04/2019 12:00:00 AM EDT tablet 120 TAKE ONE TABLET BY MOUTH FOUR TIMES A DAY, USE SPARINGLY, MAXIMUM DAILY DOSE = 4 TABLETS TAKE ONE TABLET BY MOUTH FOUR TIMES A DAY, USE SPARINGLY, MAXIMUM DAILY DOSE = 4 TABLETS SOLD: 07/04/2019 [facility] Acetaminophen 325 MG / Oxycodone Hydroch loride 5 MG Oral Tablet [Percocet] Percocet 5-325 MG OR TABS Percocet 5-325 MG OR TABS 07/03/2019 12:00:00 AM EDT 1 aborted acetaminophen 32 5 MG / oxycodone hydrochloride 5 MG Oral Tablet [Percocet] [facility] ([facility]) Acetaminophen 325 MG / Oxycodone Hydroch loride 5 MG Oral Tablet [Percocet] Percocet 5-325 MG Oral Tablet Percocet 5-325 MG Oral Tablet 07/03/2019 12:00:00 AM EDT 1 aborted acetamin ophen 325 MG / oxycodone hydrochloride 5 MG Oral Tablet [Percocet] [facility] 100,000 unit/gram 06/26/2019 12:00:00 AM EDT ointment 15 APPLY TOPICALLY THREE TIMES A DAY NEEDED TO AFFECTED MIDLINE LOWER ABDOMEN APPLY TOPICALLY THREE TIMES A DAY NEEDED TO AFFECTED MIDLINE LOWER ABDOMEN SOLD: 06/26/2019 [facility] Nystatin 100 UNT/MG Topical Ointment nystatin (MYCOSTA TIN) ointment nystatin (MYCOSTATIN) ointment 06/26/2019 12:00:00 AM EDT a ctive as needed [facility] 5 mg 06/17/2019 12:00:00 AM EDT tablet [...] hydrochlorid e 10 MG Oral Tablet [facility] Metoclopramide 10 MG Oral Tablet Metoclopramide HCl 10 MG Oral Tablet Metoclopramide HCl 10 MG Oral Tablet 06/09/2019 12:00:00 AM EDT active metoclopramide 10 MG Oral Tablet [facility] Trazodone Hydrochloride 50 MG Oral Tablet traZODone [...] losartan potassium 25 MG Oral Tablet [facility] ([facility]) POLYETHYLENE GLYCOL 3350 142 MG/ML Oral Solution Polyethylene Glycol 3350 Oral Powder Polyethylene Glycol 3350 Oral Powder 06/09/2019 12:00:00 AM EDT active polyethylene glycol 3350 170 00 MG Powder for Oral Solution [facility] ([facility]) Trazodone Hydrochloride 50 MG Oral Tablet traZODone (D ESYREL) 50 MG tablet traZODone (DESYREL) 50 MG tablet 06/09/2019 12:00:00 AM EDT aborted [facility] Pramipexole dihydrochloride 0.125 MG Ora l Tablet [...] MAXIMUM DAILY DOSE = 4 SOLD: 04/09/2019 [facility] Metronidazole 500 MG Oral Tablet metroNIDAZOLE [...] 1 TABLET BY MOUTH ONCE SOLD: 03/28/2019 [facility] Fluconazole 150 MG Oral Tablet Fluconazole [...] MOUTH TWICE A DAY NEEDED SOLD: 02/21/2019 [facility] 500 mg 02/13/2019 12:00:00 AM EST tablet 20 TAKE ONE TABLET BY MOUTH TWICE A DAY TAKE ONE TABLET BY MOUTH TWICE A DAY SOLD: 02/13/2019 [facility] Cefuroxime 500 MG Oral Tablet Cefuroxime Axetil 500 MG Oral Tablet Cefuroxime Axetil 500 MG Oral Tablet 02/13/2019 12:00:00 AM EST 1 aborted cefuroxime 500 MG Oral Tablet [facility] ([facility]) Prednisone 10 MG Oral Tablet predniSONE 10 MG Oral Tab let predniSONE 10 MG Oral Tablet 02/13/2019 12:00:00 AM EST aborted prednisone 10 MG Oral Tablet [facility] ([facility]) 10 mg 02/13/2019 12:00:00 AM EST tablet 18 TAKE 3 TABLETS BY MOUTH ONCE DAILY FOR 3 DAYS THEN 2 TABLETS ONCE DAILY FOR 3 DAYS THEN 1 TABLET ONCE DAILY FOR 3 DAYS TAKE 3 TABLETS BY MOUTH ONCE DAILY FOR 3 DAYS THEN 2 TABLETS ONCE DAILY FOR 3 DAYS THEN 1 TABLET ONCE DAILY FOR 3 DAYS SOLD: 02/13/2019 [facility] Acetaminophen 325 MG / Oxycodone Hydroch loride 5 MG Oral Tablet [Percocet] Percocet 5-325 MG Oral Tablet Percocet 5-325 MG Oral Tablet 02/07/2019 12:00:00 AM EST 1 aborted acetamin ophen 325 MG / oxycodone hydrochloride 5 MG Oral Tablet [Percocet] [facility] ([facility]) Fluticasone Propionate 50 MCG/ACT Nasal Suspension Flu ticasone Propionate 50 MCG/ACT Nasal Suspension 01/30/2019 12:00:00 AM EDT aborted fluticasone propionate 0.05 MG/ACTUAT Metered Dose Nasal [place] [facility] ([facility]) Prednisone 10 MG Oral Tablet predniSONE 10 MG Oral Tab let predniSONE 10 MG Oral Tablet 01/30/2019 12:00:00 AM EDT aborted prednisone 10 MG Oral Tablet [facility] ([facility]) repaglinide 1 MG Oral Tablet [Prandin] Prandin 1 MG Or al Tablet Prandin 1 MG Oral Tablet 01/27/2019 12:00:00 AM EDT active repaglinide 1 MG Oral Tablet [Prandin] [facility] ([facility]) 50 mcg 01/27/2019 12:00:00 AM EDT [...] Solution 01/01/2019 12:00:00 AM EDT 1 aborted [id number] 200 ACTUAT albuterol 0.09 MG/ACTUAT Metered Dose [...] hydrochloride 500 MG Oral Tablet [facility] ([facility]) Furosemide 40 MG Oral Tablet Furosemide 40MG Oral Tabl et Furosemide 40MG Oral Tablet 12/03/2018 12:00:00 AM EDT 1 aborted furosemide 40 MG Oral Tablet [facility] Melatonin 10MG Oral Tablet Disintegrating [facility] [place] tonin 10MG Oral Tablet Disintegrating 12/03/2018 12:00:00 AM EDT 1 aborted [facility] Melatonin [facility] ([facility]) Levothyroxine Sodium 0.05 MG Oral Tablet Levothyroxine Sodium 50MCG Oral Tablet Levothyroxine Sodium 50MCG Oral Tablet 12/03/2018 12:00:00 AM EDT 1 aborted levothyroxine sodium 0.05 MG Ora l Tablet [facility] ([facility]) lansoprazole 30 MG Delayed Release Oral Capsule Lansoprazole 30MG Oral Capsule Delayed Release Lansoprazole 30MG Oral Capsule Delayed Release 019 12:00:00 AM EDT 1 aborted lansoprazole 30 MG Delayed Release Oral Capsule [facility] ([facility]) atorvastatin 40 MG Oral Tablet Atorvastatin Calcium 40 MG Oral Tablet Atorvastatin Calcium 40MG Oral Tablet 12/03/2018 12:00:00 AM EDT 1 aborted atorvastatin 40 MG Oral Tablet [facility] Zolpidem tartrate 5 MG Oral Tablet Zolpidem Tartrate 5 MG Oral Tablet Zolpidem Tartrate 5MG Oral Tablet 11/12/2018 12:00:00 AM EDT 1 aborted zolpidem tartrate 5 MG Oral Tablet [facility] ([facility]) 5 mg 11/12/2018 12:00:00 AM EDT [...] MAXIMUM DAILY DOSE = 1 SOLD: 03/09/2019 [facility] Cyclobenzaprine hydrochloride 10 MG Oral [...] A MONTH SOLD: 02/28/2019 [facility] D3-50 [id number] Oral Capsule D3-50 [id number] Oral Capsule 12:00:00 AM EDT 1 aborted D3-50 [facility] ([facility]) rivaroxaban 20 MG Oral Tablet [Xarelto] Xarelto 20MG O ral Tablet Xarelto 20MG Oral Tablet 08/14/2018 12:00:00 AM EDT 1 aborte d rivaroxaban 20 MG Oral Tablet [Xarelto] [facility] ([facility]) Estradiol 0.1 MG/ML Vaginal Cream Estradiol 0.1MG/GM V aginal Cream Estradiol 0.1MG/GM Vaginal Cream 08/14/2018 12:00:00 AM EDT aborted estradiol 0.1 MG/ML Vaginal Cream [facility] ([facility]) silodosin 8 MG Oral Capsule [Rapaflo] Rapaflo 8MG Oral Capsule Rapaflo 8MG Oral Capsule 08/14/2018 12:00:00 AM EDT aborted silodosin 8 MG Oral Capsule [Rapaflo] [facility] ([facility]) BLOOD SUGAR DIAGNOSTIC 08/14/2018 12:00:00 AM EDT strip 200 DIRECTED, TEST 3 TIMES A DAY AND NEEDED DIRECTED, TEST 3 TIMES A DAY AND NEEDED SOLD: 03/11/2019 [facility] 90 mcg/actuation 08/14/2018 12:00:00 AM EDT [...] BEDTIME, USE NEEDED, ONLY RARELY SOLD: 06/07/2019 [facility] Pramipexole dihydrochloride 0.125 MG Ora l Tablet Pramipexole Dihydrochloride 0.125MG Oral Tablet Pramipexole Dihydrochloride 0.125MG Oral Tablet 2018 12:00:00 AM EDT 1 aborted pramipexole dihydrochloride 0.125 MG Oral Tablet [facility] ([facility]) OneTouch Ultra Blue In Vitro Strip OneTouch Ultra Blue In Vi tro Strip 08/14/2018 12:00:00 AM EDT aborted OneTou Ultra Blue [facility] ([facility]) Metoclopramide 10 MG Oral Tablet Metoclopramide HCl 10 MG Oral Tablet Metoclopramide HCl 10MG Oral Tablet 08/14/2018 12:00:00 AM EDT aborted metoclopramide 10 MG Oral Tablet [facility] ([facility]) POLYETHYLENE GLYCOL 3350 142 MG/ML Oral Solution Polyethylene Glycol 3350 Oral Powder Polyethylene Glycol 3350 Oral Powder 08/14/2018 12:00:00 AM EDT aborted polyethylene glycol 3350 170 00 MG Powder for Oral Solution BOB ([facility]) Bisoprolol Fumarate 5 MG Oral Tablet Bisoprolol Fumara te 5MG Oral Tablet Bisoprolol Fumarate 5MG Oral Tablet 08/14/2018 12:00:00 AM EDT aborted bisoprolol fumarate 5 MG Oral Ta blet BOB ([facility]) Losartan Potassium 25 MG Oral Tablet Losartan Potassiu m 25MG Oral Tablet Losartan Potassium 25MG Oral Tablet 08/14/2018 12:00:00 AM EDT aborted losartan potassium 25 MG Oral Ta blet BOB ([facility]) Losartan Potassium 25 MG Oral Tablet LOSARTAN POTASSIUM 12/2018 12:00:00 AM EDT tablet 90 TAKE ONE TABLET BY MOUTH ESTRELLA DAY TAKE ONE TABLET BY MOUTH EVERY DAY SOLD: 04/10/2019 [facility] 0.01 % (0.1 mg/gram) 06/06/2018 12:00:00 AM EST cream 42 APPLY 1/4 GRAM TO PERIURETHRAL AREA DAILY APPLY 1/4 GRAM TO PERIURETHRAL AREA DAILY SOLD: 06/07/2019 [facility] FIBER PO 05/28/2018 12:00:00 AM EST aborted FIBER POWD [facility] Compressor/Nebulizer Miscellaneous Compressor/Nebulizer Misc ellaneous 11/10/2015 12:00:00 AM EDT aborted Compre ssor/Nebulizer BOB ([facility]) Losartan Potassium 25 MG Oral Tablet losartan (COZAAR) 25 MG tablet losartan (COZAAR) 25 MG tablet 25 mg Oral aborted Ta ke 25 mg by mouth daily [facility] Insurance Providers Payer name Policy type / Coverage type Policy ID Covered constitution party ID Covered constitution party's relationship to nino Policy Nino Plan Information MEDICARE [id number] BCBS FEDERAL EMPLOYEE PROGRAM [id number] SELF PAY BLUE CROSS FED EMPLOYEE PLAN [id number] SPO [id number] MEDICARE PART A [id number] SP [id number] MEDICARE C [id number] S [id number] [id number] BC BS [place] FED[place]AL B [id number] S [id number] EXCELLUS BCBS [id number] MEDICARE [id number] MEDICARE [id number] Emili [id number] V75 EXCELLUS BCBS [id number] Spo [id number] BCBS of [place] Other 0 Family Depend ent [place] Ann [place] 0 Medicare Part A of [place] Other 0 Self 0 [place]BS of [place] Other 0 Family Depend ent Lee Ann [place] 0 Medicare Part A of [place] Other 0 Self 0 [place] of [place] Other 0 Family Depend ent Lee Ann Frank 0 Medicare Part A of [place] Other 0 Self 0 [place]BS of [place] Other 0 Family Depend ent Lee Ann Rfank 0 Medicare Part A of [place] Other 0 Self 0 SELF PAY BLUE CROSS FED EMPLOYEE PLAN [id number] SPO [id number] MEDICARE PART A [id number] SP [id number] SELF PAY BCBS of [place] Other 0 Family Depend ent Lee Ann [place] 0 Medicare Part A of [place] Other 0 Self 0 [place] of [place] Other 0 Family Depend ent [place] Ann [place] 0 Medicare Part A of [place] Other 0 Self 0 [place] of [place] Other 0 Family Depend ent Lee Ann [place] 0 Medicare Part A of [place] Other 0 Self 0 [place] of [place] Other 0 Family Depend ent [place] Ann [place] 0 Medicare Part A of [place] Other 0 Self 0 SELF PAY BLUE CROSS FED EMPLOYEE PLAN [id number] SPO [id number] MEDICARE PART A [id number] SP [id number] BCBS [place] Other 0 Family Depend ent [place] Ann [place] 0 Medicare Part A of [place] Other 0 Self 0 SELF PAY BLUE CROSS FED EMPLOYEE PLAN [id number] SPO [id number] MEDICARE PART A [id number] SP [id number] BCBS of [place] [place] Other 0 Famil y Dependent Lee Ann Frank 0 Medicare Part B of [place] Other 0 Se lf 0 [place]BS of [place] Other 0 Family Depend ent Lee Ann Frank 0 Medicare Part A of [place] Other 0 Self 0 [place] of [place] Other 0 Family Depend ent Lee Ann Frank 0 Medicare Part A of [place] Other 0 Self 0 [place]BS of [place] Other 0 Family Depend ent Lee Ann Frank 0 Medicare Part A of [place] Other 0 Self 0 [place]BS of [place] Other 0 Family Depend ent Lee Ann [place] 0 Medicare Part A of [place] Other 0 Self 0 BCBS CNY Medigap Part B [id number] Family Dependent [id number] BCBS Federal Medigap Part B [id number] Family Dependent [id number] Medicare Medicare Primary [id number] Self [id number] BCBS of [place] Other 0 Family Depend ent Lee Ann Frank 0 Medicare Part A of [place] Other 0 Self 0 [place] of [place] Other 0 Family Depend ent Lee Ann Frank 0 Medicare Part A of [place] Other 0 Self 0 MEDICARE PI PI BCBS of [place] Other 0 Family Depend ent Lee Ann [place] 0 Medicare Part [place] of [place] Other 0 Self 0 SELF PAY BLUE CROSS FED EMPLOYEE PLAN [id number] SPO [id number] MEDICARE PART A [id number] SP [id number] BCBS of [place] Other 0 Family Depend ent [place] Ann [place] 0 Medicare Part A of [place] Other 0 Self 0 SELF PAY BLUE CROSS FED EMPLOYEE PLAN [id number] SPO [id number] MEDICARE PART A [id number] SP [id number] SELF PAY BLUE CROSS FED EMPLOYEE PLAN [id number] SPO [id number] MEDICARE PART A [id number] SP [id number] BCBS CNY Medigap Part B [id number] Family Dependent [id number] BCBS Federal Medigap Part B [id number] Family Dependent [id number] Medicare Medicare Primary [id number] Self [id number] BCBS Federal Plan Medigap Part B [id number] Family Dependent [id number] Medicare Natl Gov't Servi Medicare Primary [id number] Self [id number] BC/BS Federal [id number] Blue Cross/Shield [id number] Medicare [id number] Medicare [id number] Medicare [id number] Medicare [id number] A MEDICARE [id number] SP [id number] BCBS CNY Medigap Part B [id number] Family Dependent [id number] BCBS Federal Medigap Part B [id number] Family Dependent [id number] Medicare Medicare Primary [id number] Self [id number] BCBS of [place] Other 0 Family Depend ent Lee Ann Frank 0 Medicare Part A of [place] Other 0 Self 0 [place] of [place] Other 0 Family Depend ent Lee Ann [place] 0 Medicare Part A of [place] Other 0 Self 0 MEDICARE [id number] SP [id number] A [place]BS of [place] Other 0 Family Depend ent Lee Ann [place] 0 Medicare Part A of [place] Other 0 Self 0 EXCELLUS BLUE CROSS BLUE SHIELD HEA [id number] S [id number] MEDICARE MCA [id number] S [id number] V75 MEDICARE MCA [id number] S [id number] [place]BS [place] Other 0 Family Depend ent Lee Ann Frank 0 Medicare Part A of [place] Other 0 Self 0 BCBS FEDERAL EMPLOYEE PROGRAM [id number] HU2 [id number] EXCELLUS BCBS PI PI MEDICARE [id number] Emili [id number] A BS Federal Medigap Part B [id number] Family Dependent [id number] Medicare [facility] Medicare Primary [id number] Self [id number] Blue Shield Federal Medigap Part B [id number] Family Dependen t [id number] [place] Medicare Primary [id number] Self [id number] BCBS CNY Medigap Part B [id number] Family Dependent [id number] BCBS Federal Medigap Part B [id number] Family Dependent [id number] Medicare Medicare Primary [id number] Self [id number] MEDICARE [id number] SP [id number] BLUE CROSS FED EMPLOYEE PLAN [id number] SPO [id number] BC BS [place] FEDERAL B [id number] S [id number] MEDICARE C [id number] S [id number] A [place]BS [place] Other 0 Family Depend ent Lee Ann [place] 0 Medicare Part [place] of [place] Other 0 Self 0 [place] of [place] Other 0 Family Depend ent Lee Ann Frank 0 Medicare Part A of [place] Other 0 Self 0 MEDICARE [id number] SP [id number] A BCBS Federal Plan Medigap Part B [id number] Family Dependent [id number] Medicare Natl Gov't Servi Medicare Primary [id number] Self [id number] BCBS Federal Plan Medigap Part B [id number] Family Dependent [id number] Medicare Natl Gov't Servi Medicare Primary [id number] Self [id number] Medicare Part A of [place] Other 0 Self 0 BCBS of [place] Other 0 Family Depend ent Lee Ann [place] 0 Medicare Part [place] of [place] Other 0 Self 0 [place]BS of [place] Other 0 Family Depend ent Lee Ann [place] 0 Medicare Part [place] of [place] Other 0 Self 0 BCBS of [place] Other 0 Family Depend ent Lee Ann [place] 0 Medicare Part A of [place] Other 0 Self 0 BCBS of [place] Other 0 Family Depend ent Lee Ann Frank 0 Medicare Part A of [place] Other 0 Self 0 BCBS of [place] Other 0 Family Depend ent Lee Ann [place] 0 Medicare Part A of [place] Other 0 Self 0 BCBS of [place] Other 0 Family Depend ent Lee Ann [place] 0 Medicare Part A of [place] Other 0 Self 0 BCBS of [place] Other 0 Family Depend ent Lee Ann Frank 0 Medicare Part A of [place] Other 0 Self 0 BCBS of [place] Other 0 Family Depend ent Lee Ann [place] 0 Medicare Part A of [place] Other 0 Self 0 BCBS of [place] Other 0 Family Depend ent Lee Ann Frank 0 Medicare Part A of [place] Other 0 Self 0 BCBS of [place] Other 0 Family Depend ent Lee Ann [place] 0 Medicare Part A of [place] Other 0 Self 0 BCBS of [place] Other 0 Family Depend ent Lee Ann Frank 0 Medicare Part A of [place] Other 0 Self 0 BCBS of [place] Other 0 Family Depend ent Lee Ann Frank 0 Medicare Part A of [place] Other 0 Self 0 [place]BS of [place] Other 0 Family Depend ent Lee Ann Frank 0 BCBS FEDERAL EMPLOYEE PROGRAM [id number] HU2 [id number] BCBS Federal Plan Medigap Part B [id number] Family Dependent [id number] Medicare Natl Gov't Servi Medicare Primary [id number] Self [id number] BCBS Federal Medigap Part B [id number] Self [id number] Medicare - NGS Medicare Primary [id number] Self [id number] BCBS CNY Medigap Part B [id number] Family Dependent [id number] BCBS Federal Medigap Part B [id number] Family Dependent [id number] Medicare Medicare Primary [id number] Self [id number] BCBS CNY Medigap Part B [id number] Family Dependent [id number] BCBS Federal Medigap Part B [id number] Family Dependent [id number] Medicare Medicare Primary [id number] Self [id number] BCBS Federal Plan Medigap Part B [id number] Family Dependent [id number] Medicare Natl Gov't Servi Medicare Primary [id number] Self [id number] BCBS Federal Plan Medigap Part B [id number] Family Dependent [id number] Medicare Natl Gov't Servi Medicare Primary [id number] Self [id number] EXCELLUS BCBS FEDERAL [id number] HU2 [id number] BCBS CNY Medigap Part B [id number] Family Dependent [id number] Medicare Medicare Primary [id number] Self [id number] BCBS Federal Plan Medigap Part B [id number] Family Dependent [id number] Medicare Natl Gov't Servi Medicare Primary [id number] Self [id number] BCBS Federal Plan Medigap Part B [id number] Family Dependent [id number] Medicare Natl Gov't Servi Medicare Primary [id number] Self [id number] EXCELLUS BCBS FEDERAL [id number] HU2 [id number] MEDICARE [id number] SP [id number] A EXCELLUS BCBS FEDERAL [id number] HU2 [id number] BS Federal Medigap Part B [id number] Family Dependent [id number] [place] Primary [id number] Self [id number] BS Federal Medigap Part B [id number] Family Dependent [id number] [place] Medicare Primary [id number] Self [id number] BCBS Federal Plan Medigap Part B [id number] Family Dependent [id number] Medicare Natl Gov't Servi Medicare Primary [id number] Self [id number] EXCELLUS BCBS FEDERAL [id number] HU2 [id number] MEDICARE [id number] SP [id number] A MEDICARE [id number] SP [id number] A BCBS Federal Plan Medigap Part B Family Dependent Medicare Natl Gov't Servi Medicare Primary Self Blue Shield Federal Medigap Part B Family Dependen t Medicare [place] Medicare Primary Self BLUE CROSS FED EMPLOYEE PLAN [id number] SPO [id number] EXCELLUS BCBS [id number] Spo [id number] BS Federal Medicrimora Part B Family Dependent [place] Medicare Primary Self BC BS [place] [facility] B [id number] P [id number] BC/BS U/W - Federal Plans Medigap Part B Family De pendent BC/BS Of [place] [address] Medicrimora Part B [place] Medicare Primary Self BC BS [place] [facility] [id number] HU2 [id number] SELF PAY 2 UNAVAILABLE 1 UNAVAILA BLE BC BLUE CARD 1 [id number] MEDICARE 4 [id number] 1 [id number] A MEDICARE 4 [id number] 1 [id number] A [facility] 2 [id number] 1 [id number] BLUE CROSS O [id number] SP [id number] MEDICARE PART A M [id number] S [id number] BLUE CROSS O [id number] SP [id number] MEDICARE M [id number] S [id number] A MEDICARE TASHA M [id number] S [id number] BLUE CROSS O [id number] SP [id number] BLUE CROSS [id number] SPO [id number] A Problems, Conditions, and Diagnoses Code Display Name Description Problem Type Effective Dates Data Source(s) N17.9 MAK (acute kidney injury) MAK (acute kidney injury) 64 258956 03/15/2020 12:00:00 AM [facility] 77534 Hypothyroidism Hypothyroidism Problem 02/10/2020 12:00: 00 AM EST BOB ([facility]) 48527 Hypothyroidism Hypothyroidism Problem 02/10/2020 12:00: 00 AM EST [employer] ([facility]) [id number] Essential hypertension Essential hypertension Problem 06/12/2019 12:00:00 AM EDT MEDKENDAL ([facility], ) 307.42 Primary Insomnia Primary Insomnia Problem 06/09/2019 12 :00:00 AM EDT BOB ([facility]) 307.42 Primary Insomnia Primary Insomnia Problem 06/09/2019 12 :00:00 AM EDT BOB ([facility]) 307.42 Primary Insomnia Primary Insomnia Problem 06/09/2019 12 :00:00 AM EDT BOB ([facility]) 307.42 Primary Insomnia Primary Insomnia Problem 06/09/2019 12 :00:00 AM EDT BOB ([facility]) 307.42 Primary Insomnia Primary Insomnia Problem 06/09/2019 12 :00:00 AM EDT BOB ([facility]) 307.42 Primary Insomnia Primary Insomnia Problem 06/09/2019 12 :00:00 AM EDT BOB ([facility]) 307.42 Primary Insomnia Primary Insomnia Problem 06/09/2019 12 :00:00 AM EDT BOB (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 Atherosclerotic heart disease of andreafski Diagnosis 03/15/2020 08:06:24 AM [facility] I73.9 Peripheral vascular disease, unspecified Peripheral vascular disease, unspecified Diagnosis 03/04/2020 12:58:07 PM [facility] F17.200 Nicotine dependence, unspecified, uncomp licated Nicotine dependence, unspecified, uncomp Diagnosis 03/04/2020 12:58:07 PM [facility] E78.00 Pure hypercholesterolemia, unspecified P ure hypercholesterolemia, unspecified Diagnosis 03/04/2020 12:58:07 PM [facility] 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 Occlusion and stenosis of bilateral zavala Diagnosis 03/04/2020 12:58:07 PM [facility] I42.9 Cardiomyopathy, unspecified Cardiomyopathy, unspecifie d Diagnosis 03/04/2020 12:58:07 PM [facility] I48.91 Unspecified atrial fibrillation Unspecified atri al fibrillation Diagnosis 03/04/2020 12:58:07 PM EST [facility] I10 Essential (primary) hypertension Essential (primary) h ypertension Diagnosis 03/04/2020 12:58:07 PM EST [facility] I44.7 Left bundle-branch block, unspecified Le ft bundle-branch block, unspecified Diagnosis 03/04/2020 12:58:07 PM EST [facility] E11.9 Type 2 diabetes mellitus without complic ations Type 2 diabetes mellitus without complic Diagnosis 03/04/2020 12:58:07 PM EST [facility] I50.20 Unspecified systolic (congestive) heart failure Unspecified systolic (congestive) heart Diagnosis 09/02/2019 01:19:19 PM EDT [facility] N76.0 Acute vaginitis N76.0 - Acute vaginitis Diagnosis 0 07/21/2019 08:06:00 AM EDT [employer] N39.0 Urinary tract infection, site not specif ied N39.0 - Urinary tract infection, site not specified Diagnosis 07/21/2019 08:06:00 AM EDT [employer] Surgeries/Procedures Procedure Description Date Indications Data Source(s) POCT AMB EKG POCT AMB EKG Routine 03/15/2020 10:17 AM EST 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 03/15/2020 03:17:00 PM EST Coronary cat ry disease involving andreafski coronary artery of andreafski heart with angina pectoris [facility] 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 CREATINE KINASE MB FRACTION ONLY CKMB Routine 03/11/2020 3:34 AM EST 03/11/2020 08:34:00 AM EST [facility] CREATINE KINASE TOTAL CK Routine 03/11/2020 3:34 AM EST 03/11/2020 08:34:00 AM EST [facility] TROPONIN QUANTITATIVE TROPONIN I Routine 03/11/2020 03/11/2020 12:00:00 AM [facility] BLOOD COUNT COMPLETE AUTO&AUTO DIFRNTL WBC COUNT CBC AND DIFFER ENTIAL Routine 03/11/2020 03/11/2020 12:00:00 AM [facility] HEPATIC FUNCTION PANEL HEPATIC FUNCTION PANEL Routine 03/11/2020 03/11/2020 12:00:00 AM EST [facility] BASIC METABOLIC PANEL CALCIUM TOTAL BASIC METABOLIC PANEL Routine 03/11/2020 03/11/2020 12:00:00 AM EST [facility] HEMOGLOBIN GLYCOSYLATED A1C HEMOGLOBIN A1C Routine 02/10/2020 02/10/2020 12:00:00 AM EST [facility] Osteopenia 08/23/2018 Osteopenia 08/23/2018 02/10/2020 12:00:00 AM ES T BOB ([facility]) History of type 2 diabetes mellitus History of type 2 diabet es mellitus 02/10/2020 12:00:00 AM EST [facility] Diverticulosis of intestine Diverticulosis of intestine 01/31 12:00:00 AM EST [facility] Colon polyps Colon polyps 02/10/2020 12:00:00 AM EST G REENWAY [facility] section 1976 section 197602/10/2020 12:00:00 A M EST BOB ([facility]) History of tonsillectomy 8 years old History of tonsillecto my 8 years old 02/10/2020 12:00:00 AM EST [facility] History of hysterectomy 1976 History of hysterectomy 197602/10/2020 12:00:00 AM EST BOB ([facility]) History of cholecystectomy 1976 History of cholecystectomy 197602/10/2020 12:00:00 AM EST BOB ([facility]) Hemoglobin; Glycated A1c Hemoglobin; Glycated A1c 02/10/2020 12:00: 00 AM EST BOB ([facility]) [facility] (fq) visit, established patient; a medically-necessary, lwmz-gb-bdlj encounter (one-on-one) between an established patient and a fq practitioner during which time one or more fq services are rendered and includes a typical bundle of medicare-covered services that would be furnished database security expert to a patient receiving a fq visit FQ Visit, established patient (Signi/Sep Eval. & Man.) 02/10/2020 12:00:00 AM EST [facility] Hemoglobin; Glycated A1c Hemoglobin; Glycated A1c 02/10/2020 12:00: 00 AM EST [facility] NORTH POST-VOIDING RESIDUAL URINE&/BLDR CAP 12/09/2019 12:00:00 AM EDT KAYE ([facility]) BLOOD COUNT COMPLETE AUTO&AUTO DIFRNTL WBC COUNT CBC AND DIFFER ENTIAL Routine 10/16/2019 10/16/2019 12:00:00 AM EDT [facility] THYROID STIMULATING HORMONE TSH TSH Routine 10/16/2019 10/16/2019 12:00:00 AM EDT [facility] HEPATIC FUNCTION PANEL HEPATIC FUNCTION PANEL Routine 10/16/2019 10/16/2019 12:00:00 AM EDT [facility] LIPID PANEL LIPID PANEL Routine 10/16/2019 10/16/2019 1 2:00:00 AM EDT [facility] BASIC METABOLIC PANEL CALCIUM TOTAL BASIC METABOLIC PANEL Routine 10/16/2019 10/16/2019 12:00:00 AM EDT [facility] (fq) visit, established patient; a medically-necessary, ywsm-cf-neiy encounter (one-on-one) between an established patient and a [facility] practitioner during which time one or more [facility] services are rendered and includes a typical bundle of medicare-covered services that would be furnished database security expert to a patient receiving a fq visit FQHC Visit, established patient 10/10/2019 12:00:00 AM EDT BOB ([facility]) Ekg With Interpretation and Report Ekg With Interpretation a nd Report 10/10/2019 12:00:00 AM EDT BOB ([facility]) Hemoglobin; Glycated A1c Hemoglobin; Glycated A1c 10/10/2019 12:00: 00 AM EDT BOB ([facility]) Osteopenia 08/23/2018 Osteopenia 08/23/2018 10/10/2019 12:00:00 AM ED T [facility] History of type 2 diabetes mellitus History of type 2 diabet es mellitus 10/10/2019 12:00:00 AM EDT BOB ([facility]) Diverticulosis of intestine Diverticulosis of intestine 09/30 12:00:00 AM EDT [facility]) Colon polyps Colon polyps 10/10/2019 12:00:00 AM [...] Spirometry 08/22/2019 12:00:00 AM EDT M ADEBAYO ([facility], ) [facility] (fq) visit, established patient; a medically-necessary, muqn-at-mwuj encounter (one-on-one) between an established patient and a [facility] practitioner during which time one or more [facility] services are rendered and includes a typical bundle of medicare-covered services that would be furnished database security expert to a patient receiving a fq visit [facility] Visit, established patient 07/24/2019 12:00:00 AM EDT BOB ([facility]) Osteopenia 08/23/2018 Osteopenia 08/23/2018 07/24/2019 [...] of hysterectomy 197607/24/2019 12:00:00 AM EDT BOB ([facility]) History of cholecystectomy 1976 History of cholecystectomy 197607/24/2019 12:00:00 AM EDT BOB ([facility]) [facility] ([facility]) visit, established patient; a medically-necessary, bahf-df-lyrn encounter (one-on-one) between an established patient and a [facility] practitioner during which time one or more [facility] services are rendered and includes a typical bundle of medicare-covered services that would be furnished database security expert to a patient receiving a [facility] visit [facility] Visit, established patient 07/21/2019 12:00:00 AM EDT BOB ([facility]) Urinalysis, by Dip Stick or Tablet Reagent for Bilirub in, Gl Urinalysis, by Dip Stick or Tablet Reagent for Bilirubin, Gl 07/21/2019 12:00:00 AM EDT BOB ([facility]) Revascularization,Endovascular,Transluminal Angioplasty 06/26/2019 12:00:00 AM EDT MEDENT ([facility] REVSC OPN/PRQ TIB/MARIBEL W/STNT/ANGIOP SM VSL 06/26/2019 12:00:00 AM EDT MEDENT ([facility], ) Angiography Extremity Bilateral 06/26/2019 12:00:00 AM EDT MEDENT ([facility], ) Angiography Selective, Each Addtl Vessel Studied After Exam 06/26/2019 12:00:00 AM EDT MEDENT ([facility], ) Moderate Sedation Services; Same Phys Intl 15 Mins; PT >= 5 Years 06/26/2019 12:00:00 AM EDT MEDENT ([facility], ) RH/[facility] code for distant site telehealt h services (Synchronous telemedicine service rendered via real-time interactive audio and video telecommunication system) RH/[facility] code for distant site telehealt h services (Synchronous telemedicine service rendered via real-time interactive audio and video telecommunication system) 06/23/2019 12:00:00 AM EDT CORTEZ Finley ([facility]) [facility] ([facility]) visit, established patient; a medically-necessary, dwfm-oz-zbuf encounter (one-on-one) between an established patient and a fq practitioner during which time one or more fqhc services are rendered and includes a typical bundle of medicare-covered services that would be furnished database security expert to a patient receiving a fqhc visit FQHC Visit, established patient (Synchronous telemedicine service rendered via real-time interactive audio and video telecommunication system) 06/23/2019 12:00:00 AM [facility]INDER ROJAS [facility] Qual nonMD est pt 5-10m (Via interactive audio and video telecommunications system) Qual nonMD est pt 5-10m (Via interactive audio and video telecommunications system) 06/23/2019 12:00:00 AM RAVINDER GUERRA ([facility]) Hemoglobin; Glycated A1c Hemoglobin; Glycated A1c 06/09/2019 12:00: 00 AM RAVINDER ROJAS ([facility]) [facility] (fq) visit, ippe or awv; a fqhc visit that includes an initial preventive physical examination (ippe) or annual wellness visit (awv) and includes a typical bundle of medicare-covered services that would be furnished database security expert to a patient receiving an ippe or awv FQ Visit, IPPE or AWV 06/09/2019 12:00:00 AM RAVINDER ROJAS ([employer]) Annual wellness visit, includes a person alized prevention plan of service (pps), subsequent visit AHR -Subsequent Annual Wellness Visit 06/09/2019 12:00 :00 AM RAVINDER ROJAS ([facility]) [facility] (fq) visit, established patient; a medically-necessary, zieh-gt-bygz encounter (one-on-one) between an established patient and a fq practitioner during which time one or more fqhc services are rendered and includes a typical bundle of medicare-covered services that would be furnished database security expert to a patient receiving a fqhc visit FQHC Visit, established patient 03/28/2019 12:00:00 AM ALEX ROJAS ([employer]) Osteopenia 08/23/2018 Osteopenia 08/23/2018 03/28/2019 12:00:00 AM ALAN ROJAS [facility] History of type 2 diabetes mellitus History of type 2 diabet es mellitus 03/28/2019 12:00:00 AM EST BOB ([facility]) Diverticulosis of intestine Diverticulosis of intestine 03/03 12:00:00 AM EST BOB ([facility]) Colon polyps Colon polyps 03/28/2019 12:00:00 AM EST G REENWAY ([facility]) section 1977 section 197603/28/2019 12:00:00 A M EST BOB ([facility]) History of tonsillectomy 8 years old History of tonsillecto my 8 years old 03/28/2019 12:00:00 AM EST BOB ([facility]) History of hysterectomy 1976 History of hysterectomy 197603/28/2019 12:00:00 AM EST BOB ([facility]) History of cholecystectomy 1976 History of cholecystectomy 197603/28/2019 12:00:00 AM EST BOB ([facility]) Spirometry 02/18/2019 12:00:00 AM EST Emiliano FIORE ([facility], ) Results ID Date Data Source [id number] 03/30/2020 02:33:00 PM [facility] Name Value Range Interpretation Code Description Data Mona rce(s) Supporting Document(s) CREAT RANDOM URINE 150.1 MG/DL [facility] No Normal Ranges Available for this Pro cedure. MICROALBUMIN,URINE 37.0 MG/L [facility] MICROALBUM/CREATININE RATIO,UR 24.6 UG/MG CR 0.0-30.0 [facility] ID Date Data Source [id number] 03/30/2020 02:55:00 PM [facility] Name Value Range Interpretation Code Description Data Mona rce(s) Supporting Document(s) WHITE BLOOD COUNT 6.96 10^3/uL 4.00-10.50 N [facility] RED BLOOD COUNT 4.55 10^6/uL 3.90-5.20 [facility] th HEMOGLOBIN 11.0 G/DL 11.5-15.6 L [facility] HEMATOCRIT 36.9 % 35.0-46.0 N [facility] MCV 81.1 FL 80.0-100.0 N [facility] MCH 24.2 PG 27.0-34.0 L [facility] MCHC 29.8 G/DL 32-36 L [facility] RDW 17.8 % 11.5-14.5 H [facility] PLATELET COUNT 268 10^3/uL 130-400 N [facility] MPV 10.6 FL 8.7-13.2 N [facility] GRAN % (AUTO) 60.7 % 42.0-75.0 N [facility] LYMPH % (AUTO) 24.9 % 20.0-51.0 N [facility] MONO % (AUTO) 11.6 % 2.0-15.0 N [facility] EOS % (AUTO) 1.4 % 0.0-11.0 N [facility] BASO % (AUTO) 1.0 % 0.0-2.0 N [facility] IG % (AUTO) 0.4 % 1.00-5.00 [facility] IG # (AUTO) 0.0 10^3/uL <0.5 [facility] GRAN # (AUTO) 4.22 10^3/uL 1.50-6.50 [facility] LYMPH # (AUTO) 1.7 k/uL 1.0-5.0 N [facility] MONO # (AUTO) 0.81 k/uL 0.20-1.50 N [facility] EOS # (AUTO) 0.10 10^3/uL 0.00-1.10 N [facility] BASO # (AUTO) 0.07 10^3/uL 0.00-0.20 N [facility] ID Date Data Source [id number] 03/30/2020 02:33:00 PM EST [facility] Name Value Range Interpretation Code Description Data Mona rce(s) Supporting Document(s) SODIUM 139 MEQ/L 135-145 N [facility] POTASSIUM 4.3 MEQ/L 3.5-5.3 N [facility] CHLORIDE 102 MEQ/L 94-110 N [facility] CARBON DIOXIDE 32 MEQ/L 22-33 N [facility] ANION GAP 9 5-16 N [facility] BLOOD UREA NITRO 19 MG/DL 7-25 N [facility] CREATININE 0.9 MG/DL 0.6-1.4 N [facility] GFR 61.2 ML/MIN [facility] [employer] Stage G2 - Mildly decreased kidney func tion The GFR is an estimate of the Glomerular Filtration Rate. It is an aid to assess a patient's renal function. It is not a conclusive diagnosis of kidney disease. GFR normal is >=90 The MDRD GFR calculation is considered valid between the ages of 18 and 75 years only. BUN/CREAT RATIO 21 8-36 [facility] GLUCOSE 93 MG/DL 70-100 [facility] CA 9.0 MG/DL 8.7-10.5 [facility] BILIRUBIN,TOTAL 0.3 MG/DL 0.1-1.3 N [facility] AST 19 U/L 5-40 [facility] ALT 14 U/L 5-48 [facility] ALKALINE PHOSPHATASE 85 U/L 40-140 [facility] TOTAL PROTEIN 6.1 G/DL 5.9-8.3 N [facility] ALBUMIN 4.3 G/DL 3.0-5.1 [facility] GLOBULIN 1.8 G/DL 1.5-3.5 [facility] ALB/GLOB RATIO 2.4 G/DL 1.0-3.0 [facility] ID Date Data Source [id number] 03/30/2020 02:33:00 PM [facility] Name Value Range Interpretation Code Description Data Mona rce(s) Supporting Document(s) TRIGLYCERIDES 119 MG/DL 45-150 [facility] CHOLESTEROL 105 MG/DL 125-200 [facility] LDL CHOLESTEROL 35 MG/DL 50-130 [facility] HDL CHOLESTEROL 46 MG/DL 32-96 [facility] CHOL/HDL RATIO 2.3 0-4.3 [facility] ID Date Data Source [id number] 03/30/2020 02:33:00 PM [facility] Name Value Range Interpretation Code Description Data Mona rce(s) Supporting Document(s) TSH 2.831 uIU/ML 0.470-4.200 [facility] Patients should not be tested for 73 ho urs post fluorescein dye angiography. A false depression of result may occur. ID Date Data Source [id number] 02/10/2020 02:52:00 PM [facility] [employer]) Name Value Range Interpretation Code Description Data Mona rce(s) Supporting Document(s) Hemoglobin A1c/Hemoglobin.total in Blood 7.5 Abnormal (applies to non-numeric results) Hgb A1c ATWOOD ([facility]) ID Date Data Source [id number] 12/09/2019 04:18:00 PM EDT MEDENT ([facility] Name Value Range Interpretation Code Description Data Mona rce(s) Supporting Document(s) Urine RBC Laboratory test result 0-2 ME DENT ([facility]) Urine WBC Laboratory test result 0-5 ME DENT ([facility]) Crystals Laboratory test result ME DENT ([facility]) Epithelial Cells Laboratory test result MEDENT ([facility]) Bacteria Laboratory test result ME DENT ([facility]) Hyaline casts [Presence] in Urine sediment by Light mi croscopy Laboratory test result MEDENT ([facility]) Sperm Laboratory test result ME DENT ([facility]) Yeast Laboratory test result ME DENT ([facility]) ID Date Data Source [id number] 12/09/2019 02:50:00 PM EDT MEDENT ([facility]) Name Value Range Interpretation Code Description Data Mona rce(s) Supporting Document(s) Ua Nitrite Laboratory test result ME DENT ([facility]) Protein [Presence] in Urine by Test strip Laboratory test result MEDENT ([facility]) Glucose [Presence] in Urine 250 mg/dL MEDENT ([facility]) Color of Urine Laboratory test result MEDENT ([facility]) Ua Leuko Laboratory test result ME DENT ([facility]) Blood [Presence] in Urine by Visual Laboratory test result MEDENT ([facility]) Ua Specific Sc[place]ey 1.015 1.003-1.030 MEDE NT ([facility]) Clarity of Urine Laboratory test result MEDENT ([facility]) Ketones [Presence] in Urine by Test strip Laboratory test result MEDENT ([facility]) pH of Urine by Test strip 6.0 5.0-7.5 MEDENT ([facility]) Urobilinogen [Mass/volume] in Urine by Test strip 0.2 E.U./dL 0.0-1.0 MEDENT ([facility]) Bilirubin.total [Presence] in Urine by Test strip Laboratory test res ult MEDENT ([facility]) ID Date Data Source [id number] 10/22/2019 12:00:00 AM EDT [facility] Jessica Carbajal Np Patient Name: [place] [facility] [facility] [place] [facility] 1945[place] [address] Date of Exam: 10/22/2019PH#: Fax: [phone] EXAM: [...] intrapelvic disease. Findings asdescribed above.Accredited by the [employer] in [place].Josy Puga, BIBIANA/jmcThank sussy for referring FRANCISCO NAILS to our office. Electronically Signed - JOSY PUGA DO 10/22/19 16:33 Name Value Range Interpretation Code Description Data Mona rce(s) Supporting Document(s) ID Date Data Source [id number] 10/10/2019 01:38:00 PM EDT BOB ([facility]) Name Value Range Interpretation Code Description Data Mona rce(s) Supporting Document(s) Hemoglobin A1c/Hemoglobin.total in Blood 7.6 Abnormal (applies to non-numeric results) Hgb A1c BOB ([facility]) ID Date Data Source [id number] 08/22/2019 10:55:00 AM EDT MEDENT ([facility], ) Name Value Range Interpretation Code Description Data Mona rce(s) Supporting Document(s) FVC-Pred 2.92 L MEDENT ([facility], ) PDFReport Laboratory test result MEDENT ([facility]) FVC-LLN 2.22 L MEDENT ([facility]) FVC-%Pred-Pre 79 L MEDENT ([facility]) FVC-Pre 2.32 L MEDENT ([facility]) Fev1-%Pred-Pre 85 L MEDENT ([facility]) Fev1-Pre 1.87 L MEDENT ([facility]) Fev1-Pred 2.20 L MEDENT ([facility]) Fev1-LLN 1.61 L MEDENT ([facility]) Fev6-Pred 2.78 L MEDENT ([facility]) Fev6-Pre 2.32 L MEDENT ([facility]) Fev6-LLN 2.10 L MEDENT ([facility]) Lqg6frd-Gixu 75 % MEDENT ([facility]) Fev6-%Pred-Pre 83 L MEDENT ([facility]) Sbt8glj-Lgd 81 % MEDENT ([facility]) Jea2wnv-%Pred-Pre 107 % MEDENT ([facility]) Mhq8vva-Dmiv 95 % MEDENT ([facility]) Dky2vuc-Dzp 100 % MEDENT ([facility]) Ypy8rix-KNK 65 % MEDENT ([facility]) Mkx3bas-%Pred-Pre 104 % MEDENT ([facility]) FEFMax-Pre 5.00 L/E/sec MEDENT ([facility]) FEFMax-Pred 5.45 L/E/sec MEDENT ([facility]) FEFMax-%Pred-Pre 91 L/E/sec MEDENT ([facility]) Nsm6139-Yknz 1.77 L/E/sec MEDENT ([facility]) FEFMax-LLN 3.72 L/E/sec MEDENT ([facility]) Ata3866-Pzp 1.87 L/E/sec MEDENT ([facility]) Mbw5161-KHH 0.52 L/E/sec MEDENT ([facility]) Xjq4670-%Pred-Pre 105 L/E/sec MEDENT ([facility]) ExpTime-Pre 5.54 sec MEDENT ([facility]) Lpm1oec2-Cuee 79 % MEDENT ([facility]) Gjw1uwx1-%Pred-Pre 102 % MEDENT ([facility]) Njt9wbc6-Awt 81 % MEDENT ([facility]) Pef3kte0-ALI 70 % MEDENT ([facility]) ID Date Data Source [id number] 07/21/2019 05:19:00 PM EDT BOB ([facility]) Name Value Range Interpretation Code Description Data Mona rce(s) Supporting Document(s) Reported Physicians See Note Reported Physicians BOB ([facility]) Note: Reported Physicians:Ordering: Jessica Pollackending: Jessica Mcmahan ID Date Data Source [id number] 07/21/2019 05:19:00 PM EDT BOB ([employer]) Name Value Range Interpretation Code Description Data Mona rce(s) Supporting Document(s) GARDNERELLA BY DNA PROBE NEGATIVE GARDNERELLA BY DNA PROBE BOB ([facility]) Note: Responsible Observer: GARDNERELLA GARDNERELLA BY DNA PROBE 500.3075 (A) BARRINGTON BY DNA PROBE POSITIVE Abnormal (applies to non-numeric results) [place] BY DNA PROBE BOB ([facility]) Note: Responsible Observer: [place] BY D NA [place] BY DNA PROBE 500.3050 (A) TRICHOMONAS BY DNA PROBE NEGATIVE TRICHOMONAS BY DNA PROBE BOB ([facility]) Note: TESTING PERFORMED BY NUCLEIC ACID HYBRIDIZATIONResponsible Observer: TRICHOMONAS TRICHOMONAS BY DNA PROBE 500.3100 (A) ID Date Data Source [id number] 07/21/2019 05:19:00 PM EDT BOB ([employer]) Name Value Range Interpretation Code Description Data Mona rce(s) Supporting Document(s) Reported Physicians See Note Reported Physicians BOB ([facility]) Note: Reported Physicians:Ordering: Jessica Pollackending: Jessica Mcmahan ID Date Data Source [id number] 07/21/2019 05:19:00 PM EDT BOB ([employer]) Name Value Range Interpretation Code Description Data Mona rce(s) Supporting Document(s) See Note Avila See Note Austin ROJAS ([facility]) Note: Run: 07/24/19 0745 INTERFACED REPORT Name: Francisco Nails Age/Sex: 74/F Location: [facility] Acct: [id number] Unit: [id number] Status: REG REF Room/Bed: Re07/21/19 Disch: Sharon Dr: Jessica Mcmahan NP Specimen #: [id number] Ordered : 07/22/19 Collected : 07/21/19 By: OFFICE Received: 07/22/19 By: DENA Source: VAGI Specimen Description: Comments: VAGINAL VAGINA Procedure Result GRAM STAIN Final GRAM POSITIVE RODS MANY GRAM NEGATIVE RODS RARE GENITAL CULTURE Final USUAL ADAM AFTER 24 HOURS USUAL ADAM AFTER 48 HOURS GENITAL CULTURE Preliminary (Corrected) USUAL ADAM AFTER 24 HOURS END OF REPORT ID Date Data Source [id number] 07/24/2019 07:45:00 AM EDT [facility] Run: 07/24/19 0745 INTERFACED REPORT Name: Francisco Nails Age/Sex: 74/F Location: [facility] Acct: [id number] Unit: [id number] Status: REG REF Room/Bed: Re07/21/19 Disch: Att Dr: Jessica Mcmahan NP Specimen #: [id number] Ordered : 07/22/19 Collected : 07/21/19 By: [...] rce(s) Supporting Document(s) ID Date Data Source [id number] 07/22/2019 02:46:00 PM EDT [facility] Name Value Range Interpretation Code Description Data Mona rce(s) Supporting Document(s) [place] BY DNA PROBE POSITIVE NEGATIVE [facility] GARDNERELLA BY DNA PROBE NEGATIVE NEGATIVE [facility] TRICHOMONAS BY DNA PROBE NEGATIVE NEGATIVE [facility] TESTING PERFORMED BY NUCLEIC ACID HYBRI DIZATION ID Date Data Source [id number] 07/21/2019 05:00:00 PM EDT BOB ([employer]) Name Value Range Interpretation Code Description Data Mona rce(s) Supporting Document(s) Reported Physicians See Note Reported Physicians BOB ([facility]) Note: Reported Physicians:Ordering: Jessica Pollackending: Jessica Mcmahan ID Date Data Source [id number] 07/21/2019 05:00:00 PM EDT BOB ([employer]) Name Value Range Interpretation Code Description Data Mona rce(s) Supporting Document(s) See Note Avila See Note Austin BOB ([facility]) Note: Run: 07/24/19 0738 INTERFACED REPORT Name: Francisco Nails Age/Sex: 74/F Location: [facility] Acct: [id number] Unit: [id number] Status: REG REF Room/Bed: Re07/21/19 Disch: Sharon Dr: Jessica Mcmahan [employer] Specimen #: [id number] Ordered : 07/22/19 Collected : 07/21/19 By: OFFICE Received: 07/22/19 By: DENA Source: URINE CC Specimen Description: Comments: Has been collected UCC Procedure Result COLONY COUNT Final COLONY COUNT 10,000 CFU/ML URINE CULTURE Final NO SIGNIFICANT GROWTH 24 HOURS NO SIGNIFICANT GROWTH 48 HOURS URINE CULTURE Preliminary (Corrected) NO SIGNIFICANT GROWTH 24 HOURS END OF REPORT ID Date Data Source [id number] 07/24/2019 07:38:00 AM EDT [facility] Run: 07/24/19 0738 INTERFACED REPORT Name: Francisco Nails Age/Sex: 74/F Location: [facility] Acct: [id number] Unit: [id number] Status: REG REF Room/Bed: Re07/21/19 Disch: Sharon Dr: Jessica Mcmahan NP Specimen #: [id number] Ordered : 07/22/19 Collected : 07/21/19 By: [...] rce(s) Supporting Document(s) ID Date Data Source [id number] 07/21/2019 12:00:00 AM RAVINDER ROJAS ([facility]) Name Value Range Interpretation Code Description Data Mona rce(s) Supporting Document(s) Color of Exudate from wound norm Normal Color GR EENWAY ([facility]) Blood [Presence] in Urine by Visual trace Abnormal (applies to non-numeric results) Blood BOB ([facility]) Bili neg Normal [facility]ili [facility] Leukocytes [#/volume] by Microscopy high power field in Urine sediment collected for unspecified duration neg Normal Leukocytes BOB ( [facility]) Glucose [Mass/volume] in Urine collected for unspecified duration n eg Normal Glucose BOB ([facility]) Ketone neg Normal Ketone BOB ([facility]) pH of Vaginal fluid by Test strip neg Normal pH BOB ([facility]) Protein [Mass/volume] in Saliva (oral fluid) neg No rmal Protein BOB ([facility]) Nitrite [Presence] in Urine by Test strip neg Isabella l Nitrite BOB ([facility]) Specific gravity of Pericardial fluid by Refractometry 1.005 Abnormal (applies to non-numeric results) Specific Scobey BOB ([facility]) Urobili neg Normal Urobili BOB ([facility]) ID Date Data Source [id number] 06/26/2019 09:06:00 AM EDT [facility]) Name Value Range Interpretation Code Description Data Mona rce(s) Supporting Document(s) Glucose [Mass/volume] in Capillary blood by Glucometer 98 mg/dL 83-110 Normal (applies to non-numeric results) [facility]) ID Date Data Source [id number] 06/26/2019 06:58:00 AM EDT [facility]) Name Value Range Interpretation Code Description Data Mona rce(s) Supporting Document(s) Glucose [Mass/volume] in Capillary blood by Glucometer 91 mg/dL 83-110 Normal (applies to non-numeric results) [facility]) ID Date Data Source [id number] 06/09/2019 12:40:00 PM EDT BOB ([facility]) Name Value Range Interpretation Code Description Data Mona rce(s) Supporting Document(s) Hemoglobin A1c/Hemoglobin.total in Blood 7.9 Abnormal (applies to non-numeric results) Hgb A1c [facility] ID Date Data Source [id number] 03/28/2019 05:42:00 PM EST BOB ([facility]) Name Value Range Interpretation Code Description Data Mona rce(s) Supporting Document(s) Reported Physicians See Note Reported Physicians [facility] ([facility]) Note: Reported Physicians:Ordering: Jessica RichardsonAttending: Jessica Carbajal ID Date Data Source [id number] 03/28/2019 05:42:00 PM EST BOB ([facility] [employer]) Name Value Range Interpretation Code Description Data [...] PROBE 500.3075 (A) ID Date Data Source [id number] 03/29/2019 01:42:00 PM EST [facility] Name Value Range Interpretation Code Description Data Mona rce(s) Supporting Document(s) [place] BY DNA PROBE POSITIVE NEGATIVE A [facility] GARDNERELLA BY DNA PROBE POSITIVE NEGATIVE [facility] TRICH[facility] BY DNA PROBE NEGATIVE NEGATIVE [facility] TESTING PERFORMED BY NUCLEIC ACID HYBRI DIZATION ID Date Data Source [id number] 03/03/2019 12:00:00 AM EST [facility] Sushant Daniels MD Patient Name: MATTHEW NAILST19320 [facility] Date of : 1945[place] Date of Exam: 03/03/2019GEOVAN[place] Kapoor [id number]#: Fax: [phone] EXAM: LOW DOSE CT LUNG [...] the time of the exam.Accredited by the [employer] in [place].Cesia Hernandez, DONAVAN/Faith you for referring FRANCISCO NAILS to our office. Electronically Signed - CESIA HERNANDEZ MD 03/04/19 17:42 Name Value Range Interpretation Code Description Data Mona rce(s) Supporting Document(s) Procedure Social History Code Duration Value Status Description Data Source(s ) Alcohol intake 03/15/2020 12:00:00 AM EST No completed [facility] Cigarette pack-years 03/15/2020 12:00:00 AM EST UNK completed [facility] Cigarettes smoked current (pack per day) - Reported 03/15/20 12:00:00 AM EST UNK completed [facility] Smoking 03/15/2020 12:00:00 AM EST Current every day smoker co mpleted Current every day smoker [facility] Alcohol intake 03/04/2020 12:00:00 AM EST No completed [facility] Cigarette pack-years 03/04/2020 12:00:00 AM EST UNK completed [facility] Cigarettes smoked current (pack per day) - Reported 03/04/20 12:00:00 AM EST UNK completed [facility] Smoking 03/04/2020 12:00:00 AM EST Current every day smoker co mpleted Current every day smoker [facility] Smoking 02/10/2020 12:00:00 AM EST Smokes tobacco daily (findi ng) completed Smokes tobacco daily (finding) BOB ([facility]) Smoking 12/09/2019 12:00:00 AM EDT current cigarette smoker co mpleted current cigarette smoker MEDENT ([facility] [employer]) Smoking 10/10/2019 12:00:00 AM EDT Smokes tobacco [...] relating to drug misuse behavior (finding) BOB ([facility]) Assertion 06/09/2019 12:00:00 AM EDT Current drinker of al cohol (finding) completed Current drinker of alcohol (finding) BOB ([facility]) Smoking 03/28/2019 12:00:00 AM EST Smokes tobacco daily (findi ng) completed Smokes tobacco daily (finding) BOB ([facility]) Vital Signs ID Date Data Source UNK Name Value Range Interpretation Code Description Data Source(s) Body mass index (BMI) [Ratio] 22.49 kg/m2 22.49 kg/m2 [facility] Body weight 59.421 kg 59.421 kg [facility] Body height 162.6 cm 162.6 cm [facility] Heart rate 65 /min 65 /min [facility] Diastolic blood pressure 80 mm[Hg] 80 mm[Hg] [facility] Systolic blood pressure 144 mm[Hg] 144 mm[Hg] [facility] Oxygen saturation in Arterial blood by Pulse oximetry 93 % 93 % [facility] Diastolic blood pressure 90 mm[Hg] 90 mm[Hg] [facility] Systolic blood pressure 138 mm[Hg] 138 mm[Hg] [facility] Oxygen saturation in Arterial blood by Pulse oximetry 93 % 93 % [facility] Body mass index (BMI) [Ratio] 22.18 kg/m2 22.18 kg/m2 [facility] Body weight 58.605 kg 58.605 kg [facility] Body height 162.6 cm 162.6 cm [facility] Heart rate 80 /min 80 /min [facility] Inhaled oxygen concentration 21 % 21 % [facility] ([facility]) Inhaled oxygen flow rate 0 L/min 0 L/min [facility] ([facility]) Oxygen saturation in Arterial blood by Pulse oximetry 95 % 95 % [facility] ([facility]) PhenX - pain, abdominal - type and intensity protocol 7 7 [facility] ([facility]) Body weight 127 [lb_av] 127 [lb_av] [facility] Respiratory rate 22 /min 22 /min [facility] Heart [facility] rhythm 1 1 [place] [facility] Heart rate 74 /min 74 /min [facility] [place] Diastolic blood pressure 70 mm[Hg] 70 mm[Hg] [facility] Systolic blood pressure 140 mm[Hg] 140 mm[Hg] G [facility] Body mass index (BMI) [Ratio] 22.5 kg/m2 22.5 k g/m2 [facility] ([facility]) Body height 64.5 [in_i] 64.5 [in_i] MED[facility] ([facility]) 5'4.50" Body weight 133.00 [lb_av] 133.00 [lb_av] MEDEN T ([facility], [facility]) Body temperature 98.6 [degF] 98.6 [degF] MED[facility] ([facility], [facility]) Respiratory rate 16 /min 16 /min MEDENT ( [facility], [facility]) Heart rate 80 /min 80 /min MEDENT ([facility], [facility]) Diastolic blood pressure 76 mm[Hg] 76 mm[Hg] MEDENT ([facility], [facility]) Systolic blood pressure 140 mm[Hg] 140 mm[Hg] M EDENT ([facility], [facility]) Diastolic blood pressure 80 mm[Hg] 80 mm[Hg] [facility] ([facility]) Systolic blood pressure 122 mm[Hg] 122 mm[Hg] M EDENT ([facility]) Body mass index (BMI) [Ratio] 22.1 kg/m2 22.1 k g/m2 [facility] ([facility]) Body weight 58.514 kg 58.514 kg [facility] ([facility] Body weight 129.00 [lb_av] 129.00 [lb_av] MEDEN T ([facility]) Body height 64 [in_i] 64 [in_i] [facility] ([facility] 5'4" Inhaled oxygen concentration 21 % 21 % BOB ([facility]) temp taken by Sergey Pinto LPN Inhaled oxygen flow rate 0 L/min 0 L/min BOB ([facility]) temp taken by Sergey Pinto LPN Oxygen saturation in Arterial blood by Pulse oximetry 96 % 96 % BOB ([facility]) temp taken by Sergey Pinto LPN PhenX - pain, abdominal - type and intensity protocol 7 7 BOB ([facility]) temp taken by Sergey Pinto LPN Body surface area Derived from formula 1.61 m2 1.61 m2 BOB ([facility]) temp taken by Sergey Pinto LPN Body mass index (BMI) [Ratio] 21.6 kg/m2 21.6 k g/m2 BOB ([facility]) temp taken by Sergey Pinto LPN Body weight 126 [lb_av] 126 [lb_av] [facility] ( [facility] temp taken by Sergey Pinto LPN Body height 64 [in_i] 64 [in_i] BOB ([facility] [place] temp taken by Sergey Pinto LPN Body temperature 96.5 [degF] 96.5 [degF] [facility]) temp taken by Sergey Pinto LPN Respiratory rate 18 /min 18 /min BOB ([facility]) temp taken by Sergey Pinto LPN Heart rate 68 /min 68 /min BOB ([facility] [place] temp taken by Sergey Pinto LPN Diastolic blood pressure 60 mm[Hg] 60 mm[Hg] BOB ([facility]) temp taken by Sergey Pinto LPN Systolic blood pressure 114 mm[Hg] 114 mm[Hg] G [place] ([facility]) temp taken by Sergey Pinto LPN Body weight 58.968 kg 58.968 kg [facility] ([facility], ) Body mass index (BMI) [Ratio] 22.1 kg/m2 22.1 k g/m2 MEDENT ([facility], ) Body weight 130.00 [lb_av] 130.00 [lb_av] MEDEN T ([facility]) Body height 64.25 [in_i] 64.25 [in_i] [facility] ([facility]) 5'4.25" Heart rate 94 /min 94 /min [facility] ([facility]) Diastolic blood pressure 72 mm[Hg] 72 mm[Hg] [facility] ([facility]) Systolic blood pressure 140 mm[Hg] 140 mm[Hg] [facility] ([facility]) Heart rate 90 /min 90 /min [facility] ([facility]) Diastolic blood pressure 70 mm[Hg] 70 mm[Hg] [facility] ([facility]) Systolic blood pressure 110 mm[Hg] 110 mm[Hg] [facility] ([facility]) Body weight 58.514 kg 58.514 kg [facility] ([facility]) Body mass index (BMI) [Ratio] 22.0 kg/m2 22.0 k g/m2 [facility] ([facility]) Body weight 129.00 [lb_av] 129.00 [lb_av] [facility] Body height 64.25 [in_i] 64.25 [in_i] [facility] ([facility]) 5'4.25" Body temperature 97.3 [degF] 97.3 [degF] [facility] ([facility]) Oxygen saturation in Arterial blood by Pulse oximetry 97 % 97 % [facility] ([facility]) Room Air Inhaled oxygen concentration 21 % 21 % BOB ([facility]) Inhaled oxygen flow rate 0 L/min 0 L/min BOB ([facility]) Oxygen saturation in Arterial blood by Pulse oximetry 99 % 99 % BOB ([facility]) PhenX - pain, abdominal - type and intensity protocol 7 7 BOB ([facility]) Body weight 129 [lb_av] 129 [lb_av] [facility] Body temperature 98 [degF] 98 [degF] BOB ([facility]) Respiratory rate 18 /min 18 /min BOB ([facility]) Heart rate rhythm 1 1 [place] ([facility]) Heart rate 56 /min 56 /min BOB ([facility] [place] Diastolic blood pressure 60 mm[Hg] 60 mm[Hg] BOB ([facility]) Systolic blood pressure 110 mm[Hg] 110 mm[Hg] [facility]) Inhaled oxygen concentration 21 % 21 % BOB ([facility]) Inhaled oxygen flow rate 0 L/min 0 L/min [facility] ([facility]) Oxygen saturation in Arterial blood by Pulse oximetry 98 % 98 % [facility] ([facility]) PhenX - pain, abdominal - type and intensity protocol 7 7 BOB ([facility]) Body surface area Derived from formula 1.62 m2 1.62 m2 BOB ([facility]) Body mass index (BMI) [Ratio] 22.1 kg/m2 22.1 k g/m2 BOB ([facility]) Body weight 129 [lb_av] 129 [lb_av] BOB ([facility]) Body height 64 [in_i] 64 [in_i] BOB ([facility] [place] Body temperature 97.9 [degF] 97.9 [degF] [facility] ([facility]) Respiratory rate 18 /min 18 /min BOB ([facility]) Heart rate 72 /min 72 /min BOB ([facility]) Diastolic blood pressure 72 mm[Hg] 72 mm[Hg] BOB ([facility]) Systolic blood pressure 102 mm[Hg] 102 mm[Hg] G [facility] ([facility]) Body weight 58.571 kg 58.571 kg [facility] ([facility], ) Body mass index (BMI) [Ratio] 22.0 kg/m2 22.0 k g/m2 [facility] ([facility], ) Body weight 129.12 [lb_av] 129.12 [lb_av] MEDEN T ([facility], ) Body height 64.25 [in_i] 64.25 [in_i] [facility] ([facility], ) 5'4.25" Body temperature 98.9 [degF] 98.9 [degF] [facility] ([facility], ) Diastolic blood pressure 70 mm[Hg] 70 mm[Hg] [facility] ([facility]) Systolic blood pressure 108 mm[Hg] 108 mm[Hg] [facility] ([facility]) Body weight 58.628 kg 58.628 kg [facility] ([facility]) Body mass index (BMI) [Ratio] 22.0 kg/m2 22.0 k g/m2 [facility] ([facility]) Body weight 129.25 [lb_av] 129.25 [lb_av] MED[facility] T ([facility]) Body height 64.25 [in_i] 64.25 [in_i] [facility] ([facility]) 5'4.25" Diastolic blood pressure 71 mm[Hg] 71 mm[Hg] [facility] ([facility]) Systolic blood pressure 145 mm[Hg] 145 mm[Hg] M [facility] ([facility]) PhenX - pain, abdominal - type and intensity protocol 6 6 BOB ([facility]) Body surface area Derived from formula 1.62 m2 1.62 m2 BOB ([facility]) Body mass index (BMI) [Ratio] 22.0 kg/m2 22.0 k g/m2 BOB ([facility]) Body weight 128 [lb_av] 128 [lb_av] [facility]OB [facility] Body height 64 [in_i] 64 [in_i] BOB ([facility] [place] Body temperature 97.9 [degF] 97.9 [degF] [facility] [facility] ([facility]) Respiratory rate 20 /min 20 /min BOB ([facility]) Heart rate rhythm 1 1 [place] ([facility]) Heart rate 66 /min 66 /min BOB ([facility] [place] Diastolic blood pressure 72 mm[Hg] 72 mm[Hg] BOB ([facility]) Systolic blood pressure 116 mm[Hg] 116 mm[Hg] G [place] ([facility]) Inhaled oxygen concentration 21 % 21 % BOB ([facility]) Inhaled oxygen flow rate 0 L/min 0 L/min B[facility] ([facility]) Oxygen saturation in Arterial blood by Pulse oximetry 97 % 97 % BOB ([facility]) PhenX - pain, abdominal - type and intensity protocol 7 7 BOB ([facility]) Body surface area Derived from formula 1.64 m2 1.64 m2 BOB ([facility]) Body mass index (BMI) [Ratio] 22.8 kg/m2 22.8 k g/m2 B[facility] ([facility]) Body weight 133 [lb_av] 133 [lb_av] BOB [facility] Body height 64 [in_i] 64 [in_i] BOB ([facility]) Body temperature 98.2 [degF] 98.2 [degF] [facility] ([facility]) Respiratory rate 20 /min 20 /min BOB ([facility]) Heart rate 65 /min 65 /min BOB ([facility]) Diastolic blood pressure 66 mm[Hg] 66 mm[Hg] BOB ([facility]) Systolic blood pressure 112 mm[Hg] 112 mm[Hg] G [place] ([facility]) Body weight 61.690 kg 61.690 kg [facility] ([facility], ) Body mass index (BMI) [Ratio] 23.2 kg/m2 23.2 k g/m2 [facility] ([facility], ) Body weight 136.00 [lb_av] 136.00 [lb_av] [facility], ) Body height 64.25 [in_i] 64.25 [in_i] [facility] ([facility], ) 5'4.25" Oxygen saturation in Arterial blood by Pulse oximetry 95 % 95 % [facility] ([facility], ) Room Air Heart rate 74 /min 74 /min [facility] ([facility], ) Diastolic blood pressure 76 mm[Hg] 76 mm[Hg] [facility] ([facility], ) Systolic blood pressure 130 mm[Hg] 130 mm[Hg] [facility] ([facility], ) Patient Treatment Plan of Care Planned Activity Planned Date Details Description Data Source (s) Losartan Potassium 50 MG Oral Tablet 03/04/2020 12:00:00 AM [facility] rivaroxaban 20 MG Oral Tablet 03/04/2020 12:00:00 AM [facility] Furosemide 20 MG Oral Tablet 02/19/2020 12:00:00 AM EST [facility] montelukast 10 MG Oral Tablet 02/11/2020 12:00:00 AM EST [facility] montelukast 10 MG Oral Tablet 02/10/2020 12:00:00 AM [facility] ([facility]) Bisoprolol Fumarate 5 MG Oral Tablet 02/10/2020 12:00:00 AM [facility] ([facility]) Metformin hydrochloride 500 MG Oral Tablet 02/06/2020 12:00:00 AM E [facility] ([facility]) Cyclobenzaprine hydrochloride 10 MG Oral Tablet 02/06/2020 12:00:00 AM [facility] ([facility]) FLUAD QUADRIVALENT 0.5 ML PRSY 02/02/2020 12:00:00 AM [facility] Acetaminophen 325 MG / Oxycodone Hydrochloride 5 MG Or al Tablet [Percocet] 01/22/2020 12:00:00 AM EDT BOB ([facility]) Acetaminophen 325 MG / Oxycodone Hydrochloride 5 MG Or al Tablet [Percocet] 12/23/2019 12:00:00 AM EDT BOB ([facility]) Zolpidem tartrate 5 MG Oral Tablet 11/25/2019 12:00:00 AM EDT BOB ([facility]) Acetaminophen 325 MG / Oxycodone Hydrochloride 5 MG Or al Tablet [Percocet] 11/25/2019 12:00:00 AM EDT BOB ([facility]) rivaroxaban 20 MG Oral Tablet 11/18/2019 12:00:00 AM EDT [facility] Acetaminophen 325 MG / Oxycodone Hydrochloride 5 MG Or al Tablet [Percocet] 10/28/2019 12:00:00 AM EDT BOB ([facility]) 24 HR venlafaxine 75 MG Extended Release Oral Capsule 10/10/2019 12:00:00 AM EDT BOB ([facility]) Levothyroxine Sodium 0.05 MG Oral Tablet 10/10/2019 12:00:00 AM EDT BOB ([facility]) glipiZIDE XL 10 MG Oral Tablet Extended Release 24 Domonique r 10/10/2019 12:00:00 AM EDT BOB ([facility]) atorvastatin 40 MG Oral Tablet 10/10/2019 12:00:00 AM ED BOB ([facility]) Nystatin 100 UNT/MG Topical Powder 10/10/2019 12:00:00 AM [facility] ([facility]) lansoprazole 30 MG Delayed Release Oral Capsule 10/10/2019 12:00:00 AM [facility]OB ([facility]) Bisoprolol Fumarate 5 MG Oral Tablet 10/10/2019 12:00:00 AM [facility] ([facility]) Amoxicillin 875 MG / Clavulanate 125 MG Oral Tablet 10/10/19 20 12:00:00 AM [facility]OB ([facility]) Fluticasone Propionate 50 MCG/ACT Nasal Suspension 10/10/2019 12 :00:00 AM [facility] ([facility]) Acetaminophen 325 MG / Oxycodone Hydrochloride 5 MG Or al Tablet [Percocet] 09/29/2019 12:00:00 AM [facility] BOB ([facility]) Cyclobenzaprine hydrochloride 10 MG Oral Tablet 09/01/2019 12:00:00 AM [facility] ([facility]) Acetaminophen 325 MG / Oxycodone Hydrochloride 5 MG Or al Tablet [Percocet] 08/29/2019 12:00:00 AM [facility]OB ([facility]) Acetaminophen 325 MG / Oxycodone Hydrochloride 5 MG Or al Tablet [Percocet] 08/01/2019 12:00:00 AM [facility] BOB ([facility]) [facility] Miconazole 7 2% Vaginal Cream 07/25/2019 12:00:00 AM [facility] ACTUAT Albuterol 0.09 MG/ACTUAT Metered Dose Inhal er [Ventolin] 07/24/2019 12:00:00 AM [facility] BOB ([facility]) D3-50 1.25 MG ([id number] UT) Oral Capsule 07/24/2019 12:00:00 AM [facility] ([facility]) OneTouch Ultra Blue In Vitro Strip 07/24/2019 12:00:00 AM [facility] ([facility]) Metronidazole 500 MG Oral Tablet [Flagyl] 07/21/2019 12:00:00 AM ED [facility] ([facility]) Fluconazole 150 MG Oral Tablet [Diflucan] 07/21/2019 12:00:00 AM ED T [facility]OB ([facility]) Acetaminophen 325 MG / Oxycodone Hydrochloride 5 MG Or al Tablet [Percocet] 07/03/2019 12:00:00 AM EDT BOB ([facility]) Nystatin 100 UNT/MG Topical Ointment 06/26/2019 12:00:00 AM EDT [facility] Zolpidem tartrate 5 MG Oral Tablet 06/17/2019 12:00:00 AM EDT [facility] ([facility]) Trazodone Hydrochloride 50 MG Oral Tablet 06/09/2019 12:00:00 AM ED T [facility] Cyclobenzaprine hydrochloride 10 MG Oral Tablet 06/09/2019 12:00:00 AM EDT [facility] ([facility]) Metformin hydrochloride 500 MG Oral Tablet 06/09/2019 12:00:00 AM E DT [facility] ([facility]) Bisoprolol Fumarate 5 MG Oral Tablet 06/09/2019 12:00:00 AM EDT [facility] ([facility]) Trazodone Hydrochloride 50 MG Oral Tablet 06/09/2019 12:00:00 AM ED T [facility] ([facility]) Pramipexole dihydrochloride 0.125 MG Oral Tablet 06/09/2019 12:00:0 0 AM EDT [facility] ([facility]) Losartan Potassium 25 MG Oral Tablet 06/09/2019 12:00:00 AM EDT [facility] ([facility]) POLYETHYLENE GLYCOL 3350 142 MG/ML Oral Solution 06/09/2019 12:00:0 0 AM EDT [facility] ([facility]) Metoclopramide 10 MG Oral Tablet 06/09/2019 12:00:00 AM EDT BOB ([facility]) Acetaminophen 325 MG / Oxycodone Hydrochloride 5 MG Or al Tablet [Percocet] 06/03/2019 12:00:00 AM EST [facility] ([facility]) Cyclobenzaprine hydrochloride 10 MG Oral Tablet 05/27/2019 12:00:00 AM EST [facility] ([facility]) Acetaminophen 325 MG / Oxycodone Hydrochloride 5 MG Or al Tablet [Percocet] 05/06/2019 12:00:00 AM EST [facility] ([facility]) Acetaminophen 325 MG / Oxycodone Hydrochloride 5 MG Or al Tablet [Percocet] 04/07/2019 12:00:00 AM EST [facility] ([facility]) Metronidazole 500 MG Oral Tablet 03/31/2019 12:00:00 AM EST [facility] ([facility]) Fluconazole 150 MG Oral Tablet 03/28/2019 12:00:00 AM EST [facility] ([facility]) Acetaminophen 325 MG / Oxycodone Hydrochloride 5 MG Or al Tablet [Percocet] 03/07/2019 12:00:00 AM EST [facility] ([facility]) Cyclobenzaprine hydrochloride 10 MG Oral Tablet 02/20/2019 12:00:00 AM EST [facility] ([facility]) Prednisone 10 MG Oral Tablet 02/13/2019 12:00:00 AM EST [facility] ([facility]) Cefuroxime 500 MG Oral Tablet 02/13/2019 12:00:00 AM EST [facility] ([facility]) Acetaminophen 325 MG / Oxycodone Hydrochloride 5 MG Or al Tablet [Percocet] 02/07/2019 12:00:00 AM EST [facility] ([facility]) Fluticasone Propionate 50 MCG/ACT Nasal Suspension 01/30/2019 12 :00:00 AM EDT BOB ([facility]) Prednisone 10 MG Oral Tablet 01/30/2019 12:00:00 AM EDT BOB ([facility]) repaglinide 1 MG Oral Tablet [Prandin] 01/27/2019 12:00:00 AM EDT BOB ([facility]) 200 ACTUAT Albuterol 0.09 MG/ACTUAT Metered Dose Inhal er [Ventolin] 01/01/2019 12:00:00 AM EDT BOB ([facility]) glipiZIDE XL 10MG Oral Tablet Extended Release 24 Hour 12/03/2018 12:00:00 AM EDT BOB ([facility]) Metformin hydrochloride 500 MG Oral Tablet 12/03/2018 12:00:00 AM E DT BOB ([facility]) atorvastatin 40 MG Oral Tablet 12/03/2018 12:00:00 AM EDT BOB ([facility]) 24 HR venlafaxine 75 MG Extended Release Oral Capsule 12/03/2018 12:00:00 [facility] Levothyroxine Sodium 0.05 MG Oral Tablet 12/03/2018 12:00:00 AM EDT BOB ([facility]) lansoprazole 30 MG Delayed Release Oral Capsule 12/03/2018 12:00:00 AM EDT BOB ([facility]) Zolpidem tartrate 5 MG Oral Tablet 11/12/2018 12:00:00 AM EDT BOB ([facility]) Cyclobenzaprine hydrochloride 10 MG Oral Tablet 10/28/2018 12:00:00 AM EDT BOB ([facility]) D3-50 [id number] Oral Capsule 09/12/2018 12:00:00 AM EDT BOB ([facility]) POLYETHYLENE GLYCOL 3350 142 MG/ML Oral Solution 08/14/2018 12:00:0 0 AM EDT BOB ([facility]) Bisoprolol Fumarate 5 MG Oral Tablet 08/14/2018 12:00:00 AM EDT BOB ([facility]) Losartan Potassium 25 MG Oral Tablet 08/14/2018 12:00:00 AM EDT BOB ([facility]) Metoclopramide 10 MG Oral Tablet 08/14/2018 12:00:00 AM EDT BOB ([facility]) OneTouch Ultra Blue In Vitro Strip 08/14/2018 12:00:00 AM EDT BOB ([facility]) Pramipexole dihydrochloride 0.125 MG Oral Tablet 08/14/2018 12:00:0 0 AM EDT BOB ([facility]) FIBER PO 05/28/2018 12:00:00 AM EST [facility] Compressor/Nebulizer Miscellaneous 11/10/2015 12:00:00 AM EDT BOB ([facility]) Losartan Potassium 25 MG Oral Tablet [facility]
[2020-04-14] MEDS ORDERED: NITROGLYCERIN 2% OINT 1 GM *U/D* PKT TOP ONE (17:15)
[2020-04-14] MEDS ORDERED: PERCOCET 5MG/325MG TAB PO ONE (17:15)
[2020-04-14] MEDS ORDERED: ISOVUE-370 76% 100ML VIAL As Ordered ONE (18:22)
[2020-04-14] MEDS ORDERED: FUROSEMIDE 40MG/4ML VIAL (J1940) IV ONE (18:30)
--- NOTE | 2020-04-14 20:08 | REPVR ---
PROCEDURE INFORMATION: Exam: CT Angiography Chest With Contrast Exam date and time: 04/14/2020 6:28 PM Age: 75 years old Clinical indication: Chest pain TECHNIQUE: Imaging protocol: Computed tomographic angiography of the chest with intravenous contrast. 3D rendering (Not supervised by radiologist): MIP and/or 3D reconstructed images were created by the technologist. Radiation optimization: All CT scans at this facility use at least one of these dose optimization techniques: automated exposure control; mA and/or kV adjustment per patient size (includes targeted exams where dose is matched to clinical indication); or iterative reconstruction. Contrast material: ISO 370; Contrast volume: 75 ml; Contrast route: INTRAVENOUS (IV); COMPARISON: CT ANGIO CHEST 12/05/2017 9:03 AM FINDINGS: Pulmonary arteries: There is opacification of the pulmonary arteries with no evidence of pulmonary embolus. Aorta: The aorta is normal in size. There is calcification of the margins of the aorta consistent with atherosclerotic plaque. There is stenosis an severe calcification of the origin of the renal arteries especially the left renal artery. Lungs: The lungs appear clear. Pleural space: There is no evidence of pneumothorax or pleural effusion. Heart: There is moderate cardiomegaly and no evidence of pericardial effusion. Lymph nodes: Unremarkable. No enlarged lymph nodes. Stomach and bowel: There is anterior osteophyte formation at the thoracolumbar junction. IMPRESSION: 1. No evidence of pulmonary embolus. 2. Moderate cardiomegaly and increased since 2018. Electronically signed by: Patrick Yu On 04/14/2020 20:08:26 PM
[2020-04-14] MEDS ORDERED: FLUTISP (22:32)
[2020-04-14] MEDS ORDERED: DICY10CA13 PO (22:32)
[2020-04-14] MEDS ORDERED: REPA1TAB4 PO (22:32)
[2020-04-14] MEDS ORDERED: MELA5TAB37 PO (22:32)
[2020-04-14] MEDS ORDERED: MIRA1POW3 PO (22:32)
[2020-04-14] MEDS ORDERED: ESTR1CRE VA (22:32)
[2020-04-14] MEDS ORDERED: MONT5TAB2 PO (22:32)
[2020-04-14] MEDS ORDERED: VITA50005 PO (22:32)
[2020-04-14] MEDS ORDERED: BISO5TAB14 PO (22:32)
[2020-04-14] MEDS ORDERED: CLIN300C6 PO (22:32)
[2020-04-14] MEDS ORDERED: ATOR40TA75 PO (22:32)
[2020-04-14] MEDS ORDERED: BENE1POW5 PO (22:32)
[2020-04-14] MEDS ORDERED: SYNT50TA PO (22:32)
[2020-04-14] MEDS ORDERED: MIRA0.12 PO (22:32)
[2020-04-14] MEDS ORDERED: LANS30CA PO (22:32)
[2020-04-14] MEDS ORDERED: BUDE0.254 INH (22:32)
[2020-04-14] MEDS ORDERED: PROAAER10 INH (22:32)
[2020-04-14] MEDS ORDERED: FURO20TA2 PO (22:32)
[2020-04-14] MEDS ORDERED: OXYC1TAB23 PO (22:32)
[2020-04-14] MEDS ORDERED: XARE20TA PO (22:32)
[2020-04-14] MEDS ORDERED: GLIP10TA18 PO (22:32)
[2020-04-14] MEDS ORDERED: LOSA50TA88 PO (22:32)
[2020-04-14] MEDS ORDERED: CYCL-707 PO (22:32)
--- OUTSIDE RECORDS SUMMARY | 2020-04-14 23:03 | CCD ---
Author Author [facility] Organization [facility] Address Unknown Phone Unavailable Care Team Providers Care Change Management Analyst Name Role Phone Shaben, E Jessica DECAL TRANSFERRER Unavailable Unavailable Shaben, E Jessica DECAL TRANSFERRER Unavailable Unavailable Shaben, E Jessica DECAL TRANSFERRER Unavailable Unavailable Shaben, E Jessica DECAL TRANSFERRER Unavailable Unavailable Shaben, E Jessica DECAL TRANSFERRER Unavailable Unavailable Shaben, E Jessica DECAL TRANSFERRER Unavailable Unavailable Shaben, E Jessica DECAL TRANSFERRER Unavailable Unavailable Shaben, E Jessica DECAL TRANSFERRER Unavailable Unavailable Shaben, E Jessica DECAL TRANSFERRER Unavailable Unavailable Shaben, E Jessica DECAL TRANSFERRER Unavailable Unavailable Shaben, E Jessica DECAL TRANSFERRER Unavailable Unavailable Shaben, E Jessica DECAL TRANSFERRER Unavailable Unavailable Shaben, E Jessica DECAL TRANSFERRER Unavailable Unavailable Shaben, E Jessica DECAL TRANSFERRER Unavailable Unavailable Shaben, E Jessica DECAL TRANSFERRER Unavailable Unavailable Shaben, E Jessica DECAL TRANSFERRER Unavailable Unavailable Shaben, E Jessica DECAL TRANSFERRER Unavailable Unavailable Shaben, E Jessica DECAL TRANSFERRER Unavailable Unavailable Shaben, E Jessica DECAL TRANSFERRER Unavailable Unavailable Shaben, E Jessica DECAL TRANSFERRER Unavailable Unavailable Shaben, E Jessica DECAL TRANSFERRER Unavailable Unavailable Shaben, E Jessica DECAL TRANSFERRER Unavailable Unavailable Shaben, E Jessica DECAL TRANSFERRER Unavailable Unavailable DREJESSICA HERNANDEZ ENG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ANIC Unavailable Unavaila JESSICA Guevara ENG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ANIC Unavailable Unavaila JESSICA Guevara ENG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ANIC Unavailable Unavaila ble DRE-JESSICA MCMAHAN ENG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ANIC Unavailable Unavaila ble DRE-MCMAHAN, JESSICA BREWER ENG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ANIC Unavailable Unavaila ble DRE-MCMAHAN, JESSICA BREWER ENG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ANIC Unavailable Unavaila ble DRE-MCMAHAN, JESSICA BREWER ENG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ANIC Unavailable Unavaila ble DRE-MCMAHAN, JESSICA BREWER ENG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ANIC Unavailable Unavaila ble DRE-MCMAHAN, JESSICA BREWER ENG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ANIC Unavailable Unavaila ble DRE-MCMAHAN, JESSICA BREWER ENG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ANIC Unavailable Unavaila ble DRE-MCMAHAN, JESSICA BREWER ENG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ANIC Unavailable Unavaila ble DRE-MCMAHAN, JESSICA BREWER ENG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ANIC Unavailable Unavaila ble DRE-MCMAHAN, JESSICA BREWER ENG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ANIC Unavailable Unavaila ble DRE-MCMAHAN, JESSICA BREWER ENG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ANIC Unavailable Unavaila ble DRE-MCMAHAN, JESSICA BRWEER ENG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ANIC Unavailable Unavaila ble DRE-MCMAHAN, JESSICA BREWER ENG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ANIC Unavailable Unavaila ble DRE-MCMAHAN, JESSICA BREWER ENG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ANIC Unavailable Unavaila ble DRE-MCMAHAN, JESSICA BREWER ENG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ANIC Unavailable Unavaila ble DRE-MCMAHAN, JESSICA BREWER ENG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ANIC Unavailable Unavaila ble DRE-MCMAHAN, JESSICA BREWER ENG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ANIC Unavailable Unavaila ble DRE-MCMAHAN, JESSICA BREWER ENG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ANIC Unavailable Unavaila ble DRE-MCMAHAN, JESSICA BREWER ENG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ANIC Unavailable Unavaila ble DRE-MCMAHAN, JESSICA BREWER ENG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ANIC Unavailable Unavaila ble DRE-MCMAHAN, JESSICA BREWER ENG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ANIC Unavailable Unavaila ble DRE-MCMAHAN, JESSICA BREWER ENG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ANIC Unavailable Unavaila ble DRE-MCMAHAN, JESSICA BREWER ENG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ANIC Unavailable Unavaila ble DRE-MCMAHAN, JESSICA BREWER ENG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ANIC Unavailable Unavaila ble DRE-MCMAHAN, JESSICA BREWER ENG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ANIC Unavailable Unavaila ble DRE-MCMAHAN, JESSICA BREWER ENG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ANIC Unavailable Unavaila ble DRE-MCMAHAN, JESSICA BREWER ENG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ANIC Unavailable Unavaila ble DRE-MCMAHAN, JESSICA BREWER ENG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ANIC Unavailable Unavaila ble DRE-MCMAHAN, JESSICA BREWER ENG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ANIC Unavailable Unavaila ble DRE-MCMAHAN, JESSICA BREWER ENG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ANIC Unavailable Unavaila ble DRE-MCMAHAN, JESSICA BREWER ENG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ANIC Unavailable Unavaila ble DRE-MCMAHAN, JESSICA BREWER ENG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ANIC Unavailable Unavaila ble DRE-MCMAHAN, JESSICA BREWER ENG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ANIC Unavailable Unavaila ble DRE-MCMAHAN, JESSICA BREWER ENG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ANIC Unavailable Unavaila ble DRE-MCMAHAN, JESSICA BREWER ENG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ANIC Unavailable Unavaila ble DRE-MCMAHAN, JESSICA BREWER ENG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ANIC Unavailable Unavaila ble DRE-MCMAHAN, JESSICA BREWER ENG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ANIC Unavailable Unavaila ble DRE-MCMAHAN, JESSICA BREWER ENG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ANIC Unavailable Unavaila ble DRE-MCMAHAN, JESSICA BREWER ENG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ANIC Unavailable Unavaila ble DRE-MCMAHAN, JESSICA BREWER ENG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ANIC Unavailable Unavaila ble DRE-MCMAHAN, JESSICA BREWER ENG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ANIC Unavailable Unavaila ble DRE-MCMAHAN, JESSICA BREWER ENG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ANIC Unavailable Unavaila ble DRE-MCMAHAN, JESSICA BREWER ENG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ANIC Unavailable Unavaila ble Brooks, L Malina [...] RPA Unavailable Unavailable Joel HECTOR, Nevin Unavailable [phone] SHABEN, J CLAIRE ENG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ANIC Unavailable Unavailable SHABEN, J CLAIRE ENG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ANIC Unavailable Unavailable SHABEN, J CLAIRE ENG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ANIC Unavailable Unavailable SHABEN, J CLAIRE ENG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ANIC Unavailable Unavailable SHABEN, J CLAIRE ENG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ANIC Unavailable Unavailable SHABEN, J CLAIRE ENG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ANIC Unavailable Unavailable SHABEN, J CLAIRE ENG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ANIC Unavailable Unavailable SHABEN, J CLAIRE ENG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ANIC Unavailable Unavailable SHABEN, J CLAIRE ENG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ANIC Unavailable Unavailable SHABEN, J CLAIRE ENG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ANIC Unavailable Unavailable SHABEN, J CLAIRE ENG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ANIC Unavailable Unavailable SHABEN, J CLAIRE ENG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ANIC Unavailable Unavailable SHABEN, J CLAIRE ENG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ANIC Unavailable Unavailable SHABEN, J CLAIRE ENG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ANIC Unavailable Unavailable SHABEN, J CLAIRE ENG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ANIC Unavailable Unavailable SHABEN, J CLAIRE ENG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ANIC Unavailable Unavailable SHABEN, J CLAIRE ENG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ANIC Unavailable Unavailable SHABEN, J CLAIRE ENG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ANIC Unavailable Unavailable SHABEN, J CLAIRE ENG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ANIC Unavailable Unavailable SHABEN, J CLAIRE ENG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ANIC Unavailable Unavailable SHABEN, J CLAIRE ENG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ANIC Unavailable Unavailable SHABEN, J CLAIRE ENG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ANIC Unavailable Unavailable SHABEN, J CLAIRE ENG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ANIC Unavailable Unavailable SHABEN, J CLAIRE ENG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ANIC Unavailable Unavailable SHABEN, J CLAIRE ENG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ANIC Unavailable Unavailable SHABEN, J CLAIRE ENG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ANIC Unavailable Unavailable SHABEN, J CLAIRE ENG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ANIC Unavailable Unavailable SHABEN, J CLAIRE ENG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ANIC Unavailable Unavailable SHABEN, J CLAIRE ENG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ANIC Unavailable Unavailable SHABEN, J CLAIRE ENG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ANIC Unavailable Unavailable SHABEN, J CLAIRE ENG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ANIC Unavailable Unavailable SHABEN, J CLAIRE ENG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ANIC Unavailable Unavailable SHABEN, J CLAIRE ENG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ANIC Unavailable Unavailable SHABEN, J CLAIRE ENG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ANIC Unavailable Unavailable SHABEN, J CLAIRE ENG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ANIC Unavailable Unavailable SHABEN, J CLAIRE ENG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ANIC Unavailable Unavailable SHABEN, J CLAIRE ENG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ANIC Unavailable Unavailable SHABEN, J CLAIRE ENG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ANIC Unavailable Unavailable SHABEN, J CLAIRE ENG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ANIC Unavailable Unavailable SHABEN, J CLAIRE ENG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ANIC Unavailable Unavailable SHABEN, J CLAIRE ENG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ANIC Unavailable Unavailable SHABEN, J CLAIRE ENG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ANIC Unavailable Unavailable SHABEN, J CLAIRE ENG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ANIC Unavailable Unavailable SHABEN, J CLAIRE ENG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ANIC Unavailable Unavailable SHABEN, J CLAIRE ENG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ANIC Unavailable Unavailable SHABEN, J CLAIRE ENG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ANIC Unavailable Unavailable SHABEN, J CLAIRE ENG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ANIC Unavailable Unavailable SHABEN, J CLAIRE ENG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ANIC Unavailable Unavailable SHABEN, J CLAIRE ENG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ANIC Unavailable Unavailable SHABEN, J CLAIRE ENG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ANIC Unavailable Unavailable SHABEN, J CLAIRE ENG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ANIC Unavailable Unavailable SHABEN, J CLAIRE ENG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ANIC Unavailable Unavailable SHABEN, J CLAIRE ENG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ANIC Unavailable Unavailable SHABEN, J CLAIRE ENG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ANIC Unavailable Unavailable SHABEN, J CLAIRE ENG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ANIC Unavailable Unavailable SHABEN, J CLAIRE ENG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ANIC Unavailable Unavailable SHABEN, J CLAIRE ENG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ANIC Unavailable Unavailable SHABEN, J CLAIRE ENG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ANIC Unavailable Unavailable SHABEN, J CLAIRE ENG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ANIC Unavailable Unavailable SHABEN, J CLAIRE ENG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ANIC Unavailable Unavailable SHABEN, J CLAIRE ENG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ANIC Unavailable Unavailable SHABEN, J CLAIRE ENG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ANIC Unavailable Unavailable SHABEN, J CLAIRE ENG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ANIC Unavailable Unavailable SHABEN, J CLAIRE ENG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ANIC Unavailable Unavailable SHABEN, J CLAIRE ENG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ANIC Unavailable Unavailable SHABEN, J CLAIRE ENG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ANIC Unavailable Unavailable SHABEN, J CLAIRE ENG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ANIC Unavailable Unavailable Carguello J Cesia DO [...] Cesia DO Unavailable Unavailable RADHA, JESSICA BREWER ENG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ANIC Unavailable Unavaila ble RADHA, JESSICA BREWER ENG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ANIC Unavailable Unavaila ble RADHA, JESSICA BREWER ENG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ANIC Unavailable Unavaila ble DRE-KOJO, JESSICA BREWER ENG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ANIC Unavailable Unavaila ble DRE-MCMAHAN, JESSICA BREWER ENG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ANIC Unavailable Unavaila ble DRE-MCMAHAN, JESSICA BREWER ENG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ANIC Unavailable Unavaila ble DRE-MCMAHAN, JESSICA BREWER ENG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ANIC Unavailable Unavaila ble DRE-MCMAHAN, JESSICA BREWER ENG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ANIC Unavailable Unavaila ble DRE-MCMAHAN, JESSICA BREWER ENG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ANIC Unavailable Unavaila ble DRE-MCMAHAN, JESSICA BREWER ENG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ANIC Unavailable Unavaila ble DRE-MCMAHAN, JESSICA BREWER ENG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ANIC Unavailable Unavaila ble DRE-MCMAHAN, JESSICA BREWER ENG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ANIC Unavailable Unavaila ble DRE-MCMAHAN, JESSICA BREWER ENG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ANIC Unavailable Unavaila ble DRE-MCMAHAN, JESSICA BREWER ENG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ANIC Unavailable Unavaila ble DRE-MCMAHAN, JESSICA BREWER ENG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ANIC Unavailable Unavaila ble DRE-MCMAHAN, JESSICA BREWER ENG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ANIC Unavailable Unavaila ble DRE-MCMAHAN, JESSICA BREWER ENG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ANIC Unavailable Unavaila ble DRE-MCMAHAN, JESSICA BREWER ENG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ANIC Unavailable Unavaila ble DRE-MCMAHAN, JESSICA BREWER ENG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ANIC Unavailable Unavaila ble DRE-MCMAHAN, JESSICA BREWER ENG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ANIC Unavailable Unavaila ble DRE-MCMAHAN, JESSICA BREWER ENG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ANIC Unavailable Unavaila ble DRE-MCMAHAN, JESSICA BREWER ENG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ANIC Unavailable Unavaila ble DRE-MCMAHAN, JESSICA BREWER ENG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ANIC Unavailable Unavaila ble DRE-MCMAHAN, JESSICA BREWER ENG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ANIC Unavailable Unavaila ble DRE-MCMAHAN, JESSICA BREWER ENG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ANIC Unavailable Unavaila ble DRE-MCMAHAN, JESSICA BREWER ENG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ANIC Unavailable Unavaila ble DRE-MCMAHAN, JESSICA BREWER ENG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ANIC Unavailable Unavaila ble DRE-MCMAHAN, JESSICA BREWER ENG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ANIC Unavailable Unavaila ble DRE-MCMAHAN, JESSICA BREWER ENG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ANIC Unavailable Unavaila ble DRE-MCMAHAN, JESSICA BREWER ENG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ANIC Unavailable Unavaila ble DRE-MCMAHAN, JESSICA BREWER ENG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ANIC Unavailable Unavaila ble DRE-MCMAHAN, JESSICA BREWER ENG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ANIC Unavailable Unavaila ble DRE-MCMAHAN, JESSICA BREWER ENG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ANIC Unavailable Unavaila ble DRE-MCMAHAN, JESSICA BREWER ENG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ANIC Unavailable Unavaila ble DRE-MCMAHAN, JESSICA BREWER ENG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ANIC Unavailable Unavaila ble DRE-MCMAHAN, JESSICA BREWER ENG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ANIC Unavailable Unavaila ble DRE-MCMAHAN, JESSICA BREWER ENG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ANIC Unavailable Unavaila ble DRE-MCMAHAN, GERMÁN ENG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ANIC Unavailable Unavaila ble DRE-MCMAHAN, GERMÁN ENG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ANIC Unavailable Unavaila ble DRE-MCMAHAN, GERMÁN ENG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ANIC Unavailable Unavaila ble DRE-MCMAHAN, GERMÁN ENG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ANIC Unavailable Unavaila ble DRE-MCMAHAN, GERMÁN ENG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ANIC Unavailable Unavaila ble DRE-MCMAHAN, GERMÁN ENG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ANIC Unavailable Unavaila ble DRE-MCMAHAN, GERMÁN ENG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ANIC Unavailable Unavaila ble DRE-MCMAHAN, GERMÁN ENG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ANIC Unavailable Unavaila ble DRE-MCMAHAN, GERMÁN ENG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ANIC Unavailable Unavaila Jorge Alberto Khalil MD [...] Unavailable Jorge Alberto Daniels MD Unavailable Unavailable Fluvanna, V FELIPE PA-C Unavailable Unavailable Fluvanna, V FELIPE PA-C Unavailable Unavailable Adriana, V FELIPE PA-C Unavailable Unavailable Fluvanna, V FELIPE PA-C Unavailable Unavailable Fluvanna, V FELIPE PA-C Unavailable Unavailable Fluvanna, V FELIPE PA-C Unavailable Unavailable Kyra Carter [...] Paula PA Unavailable Unavailable Edmundo, K Misty ENG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ANIC Unavailable Unavailable Edmundo, K Misty ENG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ANIC Unavailable Unavailable Edmundo, K Misty ENG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ANIC Unavailable Unavailable Edmundo, K Misty ENG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ANIC Unavailable Unavailable Edmundo, K Misty ENG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ANIC Unavailable Unavailable Edmundo, K Misty ENG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ANIC Unavailable Unavailable Edmundo, K Misty ENG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ANIC Unavailable Unavailable Edmundo, K Misty ENG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ANIC Unavailable Unavailable Edmundo, K Misty ENG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ANIC Unavailable Unavailable Edmundo, K Misty ENG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ANIC Unavailable Unavailable Edmundo, K Misty ENG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ANIC Unavailable Unavailable Edmundo, K Misty ENG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ANIC Unavailable Unavailable Edmundo, K Misty ENG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ANIC Unavailable Unavailable Edmundo, K Misty ENG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ANIC Unavailable Unavailable Edmundo, K Misty ENG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ANIC Unavailable Unavailable Edmundo, K Misty ENG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ANIC Unavailable Unavailable Edmundo, K Misty ENG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ANIC Unavailable Unavailable Edmundo, K Misty ENG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ANIC Unavailable Unavailable Edmundo, K Misty ENG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ANIC Unavailable Unavailable Edmundo, K Misty ENG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ANIC Unavailable Unavailable Edmundo, K Misty ENG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ANIC Unavailable Unavailable Edmundo, K Misty ENG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ANIC Unavailable Unavailable Edmundo, K Misty ENG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ANIC Unavailable Unavailable Edmundo, K Misty ENG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ANIC Unavailable Unavailable Edmundo, K Misty ENG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ANIC Unavailable Unavailable Edmundo, K Misty ENG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ANIC Unavailable Unavailable Edmundo, K Misty ENG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ANIC Unavailable Unavailable Edmundo, K Misty ENG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ANIC Unavailable Unavailable Edmundo, K Misty ENG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ANIC Unavailable Unavailable Edmundo, K Misty ENG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ANIC Unavailable Unavailable Edmundo, K Misty ENG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ANIC Unavailable Unavailable Edmundo, K Misty ENG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ANIC Unavailable Unavailable Edmundo, K Misty ENG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ANIC Unavailable Unavailable Edmundo, K Misty ENG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ANIC Unavailable Unavailable KRUNAL Wheeler, Claire Unavailable [...] Alberto Canchola MD Unavailable Unavailable Jeremiah, Jorge lAberto Canchola MD Unavailable Unavailable Jeremiah, Jorge Alberto [...] Canchola MD Unavailable Unavailable Eleazar, I Irena ENG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ANIC Unavailable Unavailable Eleazar, I Irena ENG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ANIC Unavailable Unavailable Eleazar, I Irena ENG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ANIC Unavailable Unavailable Eleazar, I Irena ENG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ANIC Unavailable Unavailable Eleazar, I Irena ENG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ANIC Unavailable Unavailable Eleazar, I Irena ENG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ANIC Unavailable Unavailable Eleazar, I Irena ENG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ANIC Unavailable Unavailable Eleazar, I Irena ENGINEERING MECHANIC Unavailable Unavailable Eleazar, I Irena ENGINEERING MECHANIC Unavailable Unavailable Eleazar, I Irena ENGINEERING MECHANIC Unavailable Unavailable Eleazar, I Irena ENGINEERING MECHANIC Unavailable Unavailable Eleazar, I Irena ENGINEERING MECHANIC Unavailable Unavailable Eleazar, I Irena ENGINEERING MECHANIC Unavailable Unavailable Eleazar, I Irena ENGINEERING MECHANIC Unavailable Unavailable Eelazar, I Irena ENGINEERING MECHANIC Unavailable Unavailable Eleazar, I Irena ENGINEERING MECHANIC Unavailable Unavailable Eleazar, I Irena ENGINEERING MECHANIC Unavailable Unavailable Eleazar, I Irena ENGINEERING MECHANIC Unavailable Unavailable Eleazar, I Irena ENGINEERING MECHANIC Unavailable Unavailable Eleazar, I Irena ENGINEERING MECHANIC Unavailable Unavailable Eleazar, I Irena ENGINEERING MECHANIC Unavailable Unavailable Eleazar, I Irena ENGINEERING MECHANIC Unavailable Unavailable Eleazar, I Irena ENGINEERING MECHANIC Unavailable Unavailable Eleazar, I Irena ENGINEERING MECHANIC Unavailable Unavailable Eleazar, I Irena ENGINEERING MECHANIC Unavailable Unavailable Eleazar, I Irena ENGINEERING MECHANIC Unavailable Unavailable Eleazar, I Irena ENGINEERING MECHANIC Unavailable Unavailable Eleazar, I Irena ENGINEERING MECHANIC Unavailable Unavailable Eleazar, I Irena ENGINEERING MECHANIC Unavailable Unavailable Eleazar, I Irena ENGINEERING MECHANIC Unavailable Unavailable Eleazar, I Irena ENGINEERING MECHANIC Unavailable Unavailable Eleazar, I Irena ENGINEERING MECHANIC Unavailable Unavailable Eleazar, I Irena ENGINEERING MECHANIC Unavailable Unavailable Eleazar, I Irena ENGINEERING MECHANIC Unavailable Unavailable Eleazar, I Irena ENGINEERING MECHANIC Unavailable Unavailable Eleazar, I Irena ENGINEERING MECHANIC Unavailable Unavailable Eleazar, I Irena ENGINEERING MECHANIC Unavailable Unavailable Eleazar, I Irena ENGINEERING MECHANIC Unavailable Unavailable Eleazar, I Irena ENGINEERING MECHANIC Unavailable Unavailable Eleazar, I Irena ENGINEERING MECHANIC Unavailable Unavailable Eleazar, I Irena ENGINEERING MECHANIC Unavailable Unavailable Eleazar, I Irena ENGINEERING MECHANIC Unavailable Unavailable Eleazar, I Irena ENGINEERING MECHANIC Unavailable Unavailable Eleazar, I Irena ENGINEERING MECHANIC Unavailable Unavailable Eleazar, I Irena ENGINEERING MECHANIC Unavailable Unavailable Eleazar, I Irena ENGINEERING MECHANIC Unavailable Unavailable Eleazar, I Irnea ENGINEERING MECHANIC Unavailable Unavailable Eleazar, I Irena ENGINEERING MECHANIC Unavailable Unavailable Eleazar, I Irena ENGINEERING MECHANIC Unavailable Unavailable Eleazar, I Irena ENGINEERING MECHANIC Unavailable Unavailable Eleazar, I Irena ENGINEERING MECHANIC Unavailable Unavailable Eleazar, I Irena ENGINEERING MECHANIC Unavailable Unavailable Eleazar, I Irena ENGINEERING MECHANIC Unavailable Unavailable Eleazar, I Irena ENGINEERING MECHANIC Unavailable Unavailable Eleazar, I Irena ENGINEERING MECHANIC Unavailable Unavailable Eleazar, I Irena ENGINEERING MECHANIC Unavailable Unavailable Eleazar, I Irena ENGINEERING MECHANIC Unavailable Unavailable Eleazar, I Irena ENGINEERING MECHANIC Unavailable Unavailable Eleazar, I Irena ENGINEERING MECHANIC Unavailable Unavailable Eleazar, I Irena ENGINEERING MECHANIC Unavailable Unavailable Eleazar, I Irena ENGINEERING MECHANIC Unavailable Unavailable Eleazar, I Irena ENGINEERING MECHANIC Unavailable Unavailable Eleazar, I Irena ENGINEERING MECHANIC Unavailable Unavailable Re-disclosure Warning The records [...] is protected by Article 27-F of the [facility] Public Health law. If you continue you may have access to information: Regarding HIV / AIDS; Provided by facilities licensed or operated by the [facility] Office of Mental Health; or Provided by the [facility] Office for People With Developmental Disabilities. If such information is present, then the following [facility] mandated warning applies: This information has [...] law may result in a fine or mcc sentence or both. A general authorization for the release of medical or other information is NOT sufficient authorization for further disc losure. Advance Directives Directive Description Hot Punch Press Operator Candy Separator Enrobing Status Observation Descr iption Data Source(s) Ebola [...] [place] 03/30/2020 09:56:00 A M EST Lab [facility] Outpatient Attender: FELIPE YOUNGER.BIN 12:00:00 AM EST - 03/15/2020 09:07:29 AM EST [facility] Outpatient Attender: Paula [email or web address] 06/2019 12:00:00 AM EST - 03/04/2020 02:41:25 PM EST [facility] Outpatient [email or web address] 03/03/2020 09:13:27 AM EST [facility] Outpatient Referrer: Kyra [email or web address]-[email or web address].[email or web address] 01/31 12:00:00 AM EST [facility] Unknown<td ID="encounterTypeDescriptionI D0">Chart Update</td><td>Nevin Maldonado RN</td><td></td><td>02/13/2020</td><td></td> Attender: Nevin Maldonado RN 02/13/2020 08:51:00 AM EST - 02/13/2020 11:59:00 PM [facility]) Outpatient<td ID="encounterTypeDescripti onID1">Chronic Disease Follow- up</td><td>Jessica Carbajal NP</td><td>[facility]</td><td>02/10/2020</td><td><content ID="encounterDiagnosisID1-0">Atrial Fibrillation and Flutter</content>, <content ID="encounterDiagnosisID1- 1">Cardiomyopathy</content>, <content ID="encounterDiagnosisID1-2">Coronary Artery Disease</content>, <content ID="encounterDiagnosisID1-3">Diabetes Mellitus Type 2 with Complication</content>, <content ID="encounterDiagnosisID1- 4">Emphysema</content>, <content ID="encounterDiagnosisID1-5">Generalized Anxiety Disorder</content>, <content ID="encounterDiagnosisID1-6">Hypertension (systemic)</content>, <content ID="encounterDiagnosisID1-7">Hyperlipidemia</content>, <content ID="encounterDiagnosisID1-8">Nicotine Dependence</content>, <content ID="encounterDiagnosisID1-9">Restless Legs Syndrome</content></td> Attender: Jessica [place] [facility] 02/10/2020 02:03:00 PM EST - 02/10/2020 [...] Sanaz barba 02/02/2020 09:15:00 AM EST [facility] ([facility]) Outpatient [email or web address] 01/21/2020 01:06:49 PM EDT [facility] Outpatient [email or web address] 12/10/2019 08:32:16 AM EDT [facility] Outpatient Attender: Misty Wyatt NP [facility] 02:45:00 PM EDT [facility] ([facility]) Outpatient [email or web address] 10/29/2019 08:32:44 AM EDT [facility] Unknown<td ID="encounterTypeDescriptionI D2">Correspondence</td><td>Jessica Carbajal NP</td><td></td><td>10/20/2019</td><td></td> Attender: Jessica [place] 10/20/2019 11:00:00 AM EDT - 10/20/2019 11:59:00 PM EDT [facility]) Unknown<td ID="encounterTypeDescriptionI D3">Referral Order</td><td>Claire Carbajal NP</td><td></td><td>10/13/2019</td><td></td> Attender: CLAIRE CARBAJAL NP 10/13/2019 10:15:00 AM EDT - 10/13/2019 11:59:00 PM EDT [facility]) Outpatient<td ID="encounterTypeDescripti onID4">Chronic Disease Follow- up</td><td>Jessica Carbajal NP</td><td>[facility]</td><td>10/10/2019</td><td><content ID="encounterDiagnosisID4-0"> Anemia</content>, <content ID="encounterDiagnosisID4-1">Atrial Fibrillation and Flutter</content>, <content ID="encounterDiagnosisID4-2">Coronary Artery Disease</content>, <content ID="encounterDiagnosisID4-3">Diabetes Mellitus Type 2 with Complication</content>, <content ID="encounterDiagnosisID4- 4">Hypertension (systemic)</content>, <content ID="encounterDiagnosisID4- 5">Emphysema</content>, <content ID="encounterDiagnosisID4-6">Generalized Anxiety Disorder</content>, <content ID="encounterDiagnosisID4-7"> Hyperlipidemia</content>, <content ID="encounterDiagnosisID4-8">Abdominal Pain--epigastric</content>, <content ID="encounterDiagnosisID4-9">Chest Pain</content>, <content ID="encounterDiagnosisID4-10">Sinusitis</content>, <content ID="encounterDiagnosisID4-11">Dermatophytosis</content></td> Attender: Jessica [place] [facility] 10/10/2019 01:02:00 PM EDT - 10/10/2019 02:36:15 PM EDT DermatophytosisSinusitisChest PainAbdomi nal Pain--epigastricDermatophytosisSinusitisChest PainAbdominal Pain--epigastricDermatophytosisSinusitisChest PainAbdominal Pain--epigastricCoronary Artery DiseaseCoronary Artery DiseaseCoronary Artery DiseaseAnemiaAnemiaAnemiaAtrial Fibrillation and FlutterAtrial Fibrillation and FlutterAtrial Fibrillation and FlutterGeneralized Anxiety DisorderGeneralized Anxiety DisorderGeneralized Anxiety DisorderHyperlipidemiaEmphysemaHypertension (systemic)Diabetes Mellitus Type 2 with ComplicationHyperlipidemiaEmphysemaHypertension (systemic)Diabetes Mellitus Type 2 with ComplicationHyperlipidemiaEmphysemaHypertension (systemic)Diabetes Mellitus Type 2 with Complication [facility] ([facility]) Dermatophytosis Sinusitis Chest Pain Abdominal Pain--epigastric Dermatophytosis [...] Complicati on Outpatient Attender: Misty Wyatt NP [facility] 03:45:00 PM EDT [facility] ([facility]) Outpatient<td ID="encounterTypeDescripti onID5">Medication Order</td><td>Irena Bush NP</td><td></td><td>09/29/2019</td><td></td> Attender: Irena Bush NP 09/29/2019 05:55:00 PM EDT - 09/29/2019 11:59:00 PM EDT [place] ([facility]) Outpatient [email or web address] 09/18/2019 12:52:15 PM EDT [facility] Outpatient Referrer: Paula ERVINKANIKA-ANGÉLICAP.KANIKA 12:00:00 AM EDT [facility] Outpatient Attender: Paula YOUNGER.KANIKA-SJP.KANIKA 05/2019 12:00:00 AM EDT - 09/02/2019 02:52:20 PM EDT [facility] Outpatient Attender: Sushant Gómez/Martha keenan 08/22/2019 10:45:00 AM EDT [facility] ([facility] Outpatient [email or web address] 08/05/2019 04:26:21 PM EDT [facility] Outpatient<td ID="encounterTypeDescripti onID6">Acute L2</td><td>Jessica Carbajal ENGINEERING MECHANIC</td><td>[facility]</td><td>07/24/2019</td><td><content ID="encounterDiagnosisID6-0">Complex Regional Pain Syndrome Type I Upper Limb</content>, <content ID="encounterDiagnosisID6-1">Low Back Pain</content></td> Attender: Jessica Carbajal DECAL TRANSFERRER [facility] 07/24/2019 09:24:00 AM EDT - 07/24/2019 [...] per Limb Outpatient<td ID="encounterTypeDescripti onID7">Acute L3</td><td>Jessica Mcmahan ENGINEERING MECHANIC</td><td>[facility]</td><td>07/21/2019</td><td><content ID="encounterDiagnosisID7-0">Vaginitis Acute</content>, <content ID="encounterDiagnosisID7-1">Microscopic Hematuria</content></td> Attender: GERMÁN RADHA ENGINEERING MECHANIC [facility] 07/21/2019 01:46:00 PM EDT - 07/21/2019 03:22:18 PM EDT Microscopic HematuriaVaginitis AcuteMicr oscopic HematuriaVaginitis AcuteMicroscopic HematuriaVaginitis AcuteMicroscopic HematuriaVaginitis Acute [facility] ([facility]) Microscopic Hematuria Vaginitis Acute Microscopic Hematuria Vaginitis Acute Microscopic Hematuria Vaginitis Acute Microscopic Hematuria Vaginitis Acute Outpatient Attender: GERMÁNLOGAN GARCIA ENGINEERING MECHANIC 0 07/21/2019 08:06:00 AM EDT [facility] Outpatient Attender: Malina Gómez/Bogata/José Antonio/R eindl 07/03/2019 10:00:00 AM EDT [facility] ) Outpatient<td ID="encounterTypeDescripti onID8">Telephone Encounter</td><td>Cesia Blackwell [...] Cardiomyopathy Coronary Artery Disease Outpatient Attender: Malina Gómez/Bogata/José Antonio/R eindl 06/12/2019 01:00:00 PM EDT [facility] ([facility], ) Unknown<td ID="encounterTypeDescriptionI D9">Correspondence</td><td>Cesia Blackwell DO</td><td></td><td>06/11/2019</td><td></td> Attender: Cesia Blackwell DO 06/11/2019 08:46:00 AM EDT - 06/11/2019 11:59:00 PM EDT [facility] ([facility]) Unknown<td ID="encounterTypeDescriptionI D10">Referral Order</td><td>Cesia Blackwell DO</td><td></td><td>06/11/2019</td><td></td> Attender: Cesia Blackwell DO 06/11/2019 08:43:00 AM EDT - 06/11/2019 11:59:00 PM EDT [facility] Unknown<td ID="encounterTypeDescriptionI D11">Chart Update</td><td>Claire Wheeler RN</td><td></td><td>06/09/2019</td><td></td> Attender: Claire Wheeler RN 06/09/2019 03:34:00 PM EDT - 06/09/2019 11:59:00 PM EDT [facility] Unknown<td ID="encounterTypeDescriptionI D12">AHR</td><td>Cesia Blackwell DO</td><td>[facility]</td><td>06/09/2019</td><td><content ID="[id number]">Routine History and Physical</content></td> Attender: Cesia Blackwell DO [facility] 06/09/2019 11:49:00 AM EDT - 06/09/2019 01:43:21 PM EDT Routine History and PhysicalRoutine Hist ory and PhysicalRoutine History and PhysicalRoutine History and PhysicalRoutine History and PhysicalRoutine History and PhysicalRoutine History and Physical [place] ([facility]) Routine History and Physical Routine History and Physical Routine History and Physical Routine History and Physical Routine History and Physical Routine History and Physical Routine History and Physical Unknown<td ID="encounterTypeDescriptionI D13">Chart Prep</td><td>Cesia Blackwell DO</td><td></td><td>05/23/2019</td><td></td> Attender: Cesia Blackwell DO 05/23/2019 08:55:00 AM EST - 05/23/2019 11:59:00 PM EST [place] ([facility]) Outpatient Referrer: Sushant Daniels MD 04/09/2019 02:50:0 0 PM EST [facility] Outpatient<td ID="encounterTypeDescripti onID14">Medication Order</td><td>Jessica Carbajal NP</td><td></td><td>03/31/2019</td><td></td> Attender: Jessica LANCASTER 03/31/2019 09:51:00 AM EST - 03/31/2019 11:59:00 PM EST [place] ([facility]) Outpatient Attender: Jessica LANCASTER 03/28/2019 07:01:00 P M EST [facility]<td ID="encounterTypeDescripti onID15">Hospital Follow-up</td><td>Jessica Carbajal NP</td><td>[facility]</td><td>03/28/2019</td><td><content ID="[id number]">Vaginitis</content>, <content ID="gkhrbhufeNbsbuhurvIA21-5">Diabetes Mellitus Type 2 with Complication</content>, <content ID="tbnpvyekrRxcsdgqhgLO07-0">Congestive Heart Failure</content>, <content ID="mzfkxbcoePtayekhulCN23-1">Chronic Obstructive Pulmonary Disease</content></td> Attender: Jessica LANCASTER [facility] 03/28/2019 10:52:00 AM EST - 03/28/2019 [...] AM EST - 02/20/2019 01:57:47 PM EST [facility] Outpatient Attender: Sushant Gómez/Tony/José Antonio/Aurora keenan 02/18/2019 01:30:00 PM EST [facility] Unknown<td ID="encounterTypeDescriptionI D16">[Patient Encounter]</td><td>Cesia Blackwell DO</td><td></td><td>02/13/2019</td><td></td> Attender: Cesia Blackwell DO 02/13/2019 03:55:00 PM EST - 02/13/2019 11:59:00 PM EST [place] ([facility]) Outpatient [email or web address] 01/09/2019 11:16:53 AM EDT [facility] Immunizations Vaccine Date Status Description Data Source(s) INFLUENZA VACCINE QUADRIVALENT 2019- (65 YR UP)/MF59 C.1/PF 02/02/2020 12:00:00 AM EST completed [facility] Influenza, high dose seasonal 01/22/2020 08:52:00 AM EDT complet ed Influenza, high-dose (over 65) 2 01/22/2020 Complete (Reported) Merle ent [place] ([facility]) Medications Medication Brand Name Start Date Product [...] MOUTH TWICE A DAY NEEDED SOLD: 04/03/2020 [facility] Cyclobenzaprine hydrochloride 10 MG Oral Tablet CYCLOBENZAPR [...] total) by mouth mayco ly with dinner [facility] Atrial fibrillation Losartan Potassium 50 MG Oral Tablet losartan (COZAAR) 50 MG tablet losartan (COZAAR) 50 MG tablet 03/04/2020 12:00:00 AM EST 50 mg Oral active Hypertension, essential Take 1 tablet (50 mg total) by mouth daily [facility] Hypertension, essential 5-325 mg 02/21/2020 12:00:00 [...] TIMES A DAY NEEDED SO LD: 02/21/2020 [facility] Furosemide 20 MG Oral Tablet furosemide (LASIX) 20 MG tablet furosemide (LASIX) 20 MG tablet 02/19/2020 12:00:00 AM EST 40 mg Oral abort ed Take 2 tablets (40 mg total) by mouth 3 (three) times a day as needed [facility] montelukast 10 MG Oral Tablet MONTELUKAST [...] active Take 10 mg by mouth daily [facility] montelukast 10 MG Oral Tablet MONTELUKAST [...] A DAY FOR 7 DAYS SOLD: 02/02/2020 [facility] FLUAD QUADRIVALENT 0.5 ML PRSY [id number] 02/02/2020 12:00:00 AM EST active Inject as directed [facility] Amoxicillin 875 MG / Clavulanate 125 MG Oral Tablet Am oxicillin/Clavulanate Potassium 02/02/2020 12:00:00 AM EST active [facility] 5-325 mg 01/23/2020 12:00:00 AM EDT tablet [...] A DAY NEEDED FOR BREATHING SOLD: 11/21/2019 [facility] rivaroxaban 20 MG Oral Tablet rivaroxaban (XARELTO) 20 MG TABS rivaroxaban (XARELTO) 20 MG TABS 11/18/2019 12:00:00 AM EDT 20 mg Oral aborted Take 1 tablet (20 mg total) by mouth daily with dinner [facility] Acetaminophen 325 MG / Oxycodone Hydroch [...] DAILY DOSE = 4 TABLETS SOLD: 10/28/2019 [facility] 875-125 mg 10/10/2019 12:00:00 AM EDT tablet 20 TAKE ONE TABLET BY MOUTH TWO TIMES A DAY WITH FOOD TAKE ONE TABLET BY MOUTH TWO TIMES A DAY WITH FOOD INA [facility] silodosin 8 MG Oral Capsule Silodosin [...] CAPSULE BY MOUTH EVERY DAY SOLD: 10/10/2019 [facility] Nystatin 100 UNT/MG Topical Powder 100,000 unit/gram [...] CAPSULE BY MOUTH EVERY DAY SOLD: 01/15/2020 [facility] Amoxicillin 875 MG / Clavulanate 125 MG Oral Tablet Amoxicillin-Pot Clavulanate 875-125 MG Oral Tablet Amoxicillin-Pot Clavulanate 875-125 MG Oral Tablet 10/10/2019 12:00:00 AM EDT 1 aborted amoxicillin 875 MG / clavulanate 125 MG Oral Tablet [facility] ([facility]) 30 mg 10/10/2019 12:00:00 AM EDT capsule,delayed release (DR/EC) 90 TAKE ONE CAPSULE BY MOUTH EVERY DAY TAKE ONE CAPSULE BY MOUTH EVERY DAY SOLD: 04/07/2020 [facility] lansoprazole 30 MG Delayed Release Oral Capsule Lansoprazole 30 MG Oral Capsule Delayed Release Lansoprazole 30 MG Oral Capsule Delayed Release 2019 12:00:00 AM EDT 1 active lansoprazole 30 MG Delayed Release Oral Capsule [facility] ([facility]) 24 HR venlafaxine 75 MG Extended Release Oral Capsule Venlafaxine HCl ER 75 MG Oral Capsule Extended Release 24 Hour Venlafaxine HCl ER 75 MG Oral Capsule Extended Release 24 Hour 10/10/2019 12:00:00 AM EDT 1 active 24 HR venlafaxine 75 MG Extended Release Oral Capsule [facility] ([facility]) glipiZIDE XL 10 MG Oral Tablet Extended Release 24 Domonique r glipiZIDE XL 10 MG Oral Tablet Extended Release 24 Hour 10/10/2019 12:00:00 AM EDT 1 active glipiZIDE XL [facility] ([facility]) Fluticasone Propionate 50 MCG/ACT Nasal Suspension Flu ticasone Propionate 50 MCG/ACT Nasal Suspension 10/10/2019 12:00:00 AM EDT completed fluticasone propionate 0.05 MG/ACTUAT Metered Dose Nasal [place] [facility] ([facility]) Levothyroxine Sodium 0.05 MG Oral Tablet Levothyroxine Sodium 50 MCG Oral Tablet Levothyroxine Sodium 50 MCG Oral Tablet 10/10/2019 12:00:00 AM EDT 1 active levothyroxine sodium 0.05 MG Ora l Tablet [place] ([facility]) atorvastatin 40 MG Oral Tablet Atorvastatin Calcium 40 MG Oral Tablet Atorvastatin Calcium 40 MG Oral Tablet 10/10/2019 12:00:00 AM EDT 1 active atorvastatin 40 MG Oral [facility] Bisoprolol Fumarate 5 MG Oral Tablet Bisoprolol Fumarate 5 M G Oral Tablet 10/10/2019 12:00:00 AM EDT aborted bisoprolol fumarate 5 MG Oral Tablet [place] ([facility]) 50 mcg/actuation 10/10/2019 12:00:00 AM EDT spray,suspension 16 2 SPRAYS IN EACH NOSTRIL ONCE DAILY 2 SPRAYS IN EACH NOSTRIL ONCE DAILY SOLD: 10/10/2019 [facility] Nystatin 100 UNT/MG Topical Powder Nystatin 397521 UNI T/GM External Powder Nystatin 428026 UNIT/GM External Powder 10/10/2019 12:00:00 AM EDT 1 active nystatin 100 UNT/MG Topical Powd er [place] ([facility]) 50 mcg 10/10/2019 12:00:00 AM EDT tablet [...] 10/07/2019 12:00:00 AM EDT active [facility] ([facility]) 20 mg 10/07/2019 12:00:00 AM EDT tablet [...] hydrochlorid e 10 MG Oral Tablet [facility] ([facility]) Cyclobenzaprine hydrochloride 10 MG Oral Tablet CYCLOBENZAPR [...] hydrochloride 5 MG Oral Tablet [Percocet] [facility] ([facility]) [facility] Micon[facility] 7 2% Vaginal Cream [facility] Micon[facility] 7 2% Vagina l Cream 07/25/2019 12:00:00 AM EDT 1 aborted [facility] [place] onazole 7 [place] ([facility]) OneTouch Ultra Blue In Vitro Strip OneTouch Ultra Blue In Vi tro Strip 07/24/2019 12:00:00 AM EDT active OneTou[facility] h Ultra Blue [place] ([facility]) BLOOD SUGAR DIAGNOSTIC 07/24/2019 12:00:00 AM EDT strip 250 TEST THREE TIMES A DAY NEEDED DIRECTED TEST THREE TIMES A DAY NEEDED DIRECTED SOLD: 07/25/2019 [facility] D3-50 1.25 MG (98053 UT) Oral Capsule D3-50 1.25 MG (02268 U T) Oral Capsule 07/24/2019 12:00:00 AM EDT 1 active D3-50 [facility] ([facility]) 200 ACTUAT Albuterol 0.09 MG/ACTUAT Mete red Dose Inhaler [Ventolin] Ventolin HFA 108 (90 Base) MCG/ACT Inhalation Aerosol Solution Ventolin HFA 108 (90 Base) MCG/ACT Inhalation Aerosol Solution 07/24/2019 12:00:00 AM EDT 1 active [id number] 200 ACTUAT albuter ol 0.09 MG/ACTUAT Metered Dose Inhaler [Ventolin] [facility] ([facility]) silodosin 8 MG Oral Capsule [Rapaflo] Rapaflo 8 MG Ora l Capsule Rapaflo 8 MG Oral Capsule 07/21/2019 12:00:00 AM EDT abort ed silodosin 8 MG Oral Capsule [Rapaflo] [facility] ([facility]) 500 mg 07/21/2019 12:00:00 AM EDT tablet [...] rivaroxaban 20 MG Oral Tablet [Xarelto] [facility] ([facility]) Furosemide 40 MG Oral Tablet Furosemide 40 MG Oral Tablet 12:00:00 AM EDT 1 active furosemide 40 MG Oral Tablet [facility] ([facility]) Fluconazole 150 MG Oral Tablet [Diflucan] Diflucan 150 MG Oral Tablet Diflucan 150 MG Oral Tablet 07/21/2019 12:00:00 AM EDT aborted fluconazole 150 MG Oral Tablet [Diflucan] [facility] ([facility]) Metronidazole 500 MG Oral Tablet [Flagyl] Flagyl 500 M G Oral Tablet Flagyl 500 MG Oral Tablet 07/21/2019 12:00:00 AM EDT 1 abo rted metronidazole 500 MG Oral Tablet [Flagyl] [facility] ([facility]) 150 mg 07/21/2019 12:00:00 AM EDT tablet 2 TAKE ONE TABLET BY MOUTH NOW, MAY REPEAT IN 10 TO 14 DAYS NEEDED TAKE ONE TABLET BY MOUTH NOW, MAY REPEAT IN 10 TO 14 DAYS NEEDED SOLD: 07/21/2019 [facility] Melatonin 10 MG Oral Tablet Disintegrating [facility] Saima atonin 10 MG Oral Tablet Disintegrating 07/21/2019 12:00:00 AM EDT 1 active [facility] Melatonin [facility] ([facility]) 5-325 mg 07/04/2019 12:00:00 AM EDT tablet 120 TAKE ONE TABLET BY MOUTH FOUR TIMES A DAY, USE SPARINGLY, MAXIMUM DAILY DOSE = 4 TABLETS TAKE ONE TABLET BY MOUTH FOUR TIMES A DAY, USE SPARINGLY, MAXIMUM DAILY DOSE = 4 TABLETS SOLD: 07/04/2019 [facility] Acetaminophen 325 MG / Oxycodone Hydroch loride 5 MG Oral Tablet [Percocet] Percocet 5-325 MG OR TABS Percocet 5-325 MG OR TABS 07/03/2019 12:00:00 AM EDT 1 aborted acetaminophen 32 5 MG / oxycodone hydrochloride 5 MG Oral Tablet [Percocet] [facility] ([facility]) Acetaminophen 325 MG / Oxycodone Hydroch loride 5 MG Oral Tablet [Percocet] Percocet 5-325 MG Oral Tablet Percocet 5-325 MG Oral Tablet 07/03/2019 12:00:00 AM EDT 1 aborted acetamin ophen 325 MG / oxycodone hydrochloride 5 MG Oral Tablet [Percocet] [facility] 100,000 unit/gram 06/26/2019 12:00:00 AM EDT ointment 15 APPLY TOPICALLY THREE TIMES A DAY NEEDED TO AFFECTED MIDLINE LOWER ABDOMEN APPLY TOPICALLY THREE TIMES A DAY NEEDED TO AFFECTED MIDLINE LOWER ABDOMEN SOLD: 06/26/2019 [facility] Nystatin 100 UNT/MG Topical Ointment nystatin (MYCOSTA TIN) ointment nystatin (MYCOSTATIN) ointment 06/26/2019 12:00:00 AM EDT a ctive as needed [facility] 5 mg 06/17/2019 12:00:00 AM EDT [...] hydrochlorid e 10 MG Oral Tablet [facility] Metoclopramide 10 MG Oral Tablet Metoclopramide HCl 10 MG Oral Tablet Metoclopramide HCl 10 MG Oral Tablet 06/09/2019 12:00:00 AM EDT active metoclopramide 10 MG Oral Tablet [facility] Trazodone Hydrochloride 50 MG Oral Tablet [...] losartan potassium 25 MG Oral Tablet [facility] POLYETHYLENE GLYCOL 3350 142 MG/ML Oral Solution Polyethylene Glycol 3350 Oral Powder Polyethylene Glycol 3350 Oral Powder 06/09/2019 12:00:00 AM EDT active polyethylene glycol 3350 170 00 MG Powder for Oral Solution [facility] ([facility]) Trazodone Hydrochloride 50 MG Oral Tablet traZODone (D ESYREL) 50 MG tablet traZODone (DESYREL) 50 MG tablet 06/09/2019 12:00:00 AM EDT aborted [facility] Pramipexole dihydrochloride 0.125 MG Ora l [...] MAXIMUM DAILY DOSE = 4 SOLD: 04/09/2019 [facility] Metronidazole 500 MG Oral Tablet metroNIDAZOLE [...] 1 TABLET BY MOUTH ONCE SOLD: 03/28/2019 [facility] Fluconazole 150 MG Oral Tablet Fluconazole [...] MOUTH TWICE A DAY NEEDED SOLD: 02/21/2019 [facility] 500 mg 02/13/2019 12:00:00 AM EST tablet 20 TAKE ONE TABLET BY MOUTH TWICE A DAY TAKE ONE TABLET BY MOUTH TWICE A DAY SOLD: 02/13/2019 [facility] Cefuroxime 500 MG Oral Tablet Cefuroxime Axetil 500 MG Oral Tablet Cefuroxime Axetil 500 MG Oral Tablet 02/13/2019 12:00:00 AM EST 1 aborted cefuroxime 500 MG Oral Tablet [place] ([facility]) Prednisone 10 MG Oral Tablet predniSONE 10 MG Oral Tab let predniSONE 10 MG Oral Tablet 02/13/2019 12:00:00 AM EST aborted prednisone 10 MG Oral Tablet [place] ([facility]) 10 mg 02/13/2019 12:00:00 AM EST tablet 18 TAKE 3 TABLETS BY MOUTH ONCE DAILY FOR 3 DAYS THEN 2 TABLETS ONCE DAILY FOR 3 DAYS THEN 1 TABLET ONCE DAILY FOR 3 DAYS TAKE 3 TABLETS BY MOUTH ONCE DAILY FOR 3 DAYS THEN 2 TABLETS ONCE DAILY FOR 3 DAYS THEN 1 TABLET ONCE DAILY FOR 3 DAYS SOLD: 02/13/2019 [facility] Acetaminophen 325 MG / Oxycodone Hydroch loride 5 MG Oral Tablet [Percocet] Percocet 5-325 MG Oral Tablet Percocet 5-325 MG Oral Tablet 02/07/2019 12:00:00 AM EST 1 aborted acetamin ophen 325 MG / oxycodone hydrochloride 5 MG Oral Tablet [Percocet] [place] ([facility]) Fluticasone Propionate 50 MCG/ACT Nasal Suspension Flu ticasone Propionate 50 MCG/ACT Nasal Suspension 01/30/2019 12:00:00 AM EDT aborted fluticasone propionate 0.05 MG/ACTUAT Metered Dose Nasal [place] ([facility]) Prednisone 10 MG Oral Tablet predniSONE 10 MG Oral Tab let predniSONE 10 MG Oral Tablet 01/30/2019 12:00:00 AM EDT aborted prednisone 10 MG Oral Tablet [place] ([facility]) repaglinide 1 MG Oral Tablet [Prandin] Prandin 1 MG Or al Tablet Prandin 1 MG Oral Tablet 01/27/2019 12:00:00 AM EDT active repaglinide 1 MG Oral Tablet [Prandin] [place] ([facility]) 50 mcg 01/27/2019 12:00:00 AM EDT tablet [...] Solution 01/01/2019 12:00:00 AM EDT 1 aborted [id number] 200 ACTUAT albuterol 0.09 MG/ACTUAT Metered Dose [...] hydrochloride 500 MG Oral Tablet [facility] ([facility]) Furosemide 40 MG Oral Tablet Furosemide 40MG Oral Tabl et Furosemide 40MG Oral Tablet 12/03/2018 12:00:00 AM EDT 1 aborted furosemide 40 MG Oral Tablet [facility] Mel[facility] 10MG Oral Tablet Disintegrating [facility] [place] tonin 10MG Oral Tablet Disintegrating 12/03/2018 12:00:00 AM EDT 1 aborted [facility] Melatonin [facility] ([facility]) Levothyroxine Sodium 0.05 MG Oral Tablet Levothyroxine Sodium 50MCG Oral Tablet Levothyroxine Sodium 50MCG Oral Tablet 12/03/2018 12:00:00 AM EDT 1 aborted levothyroxine sodium 0.05 MG Ora l Tablet [place] ([facility]) lansoprazole 30 MG Delayed Release Oral Capsule Lansoprazole 30MG Oral Capsule Delayed Release Lansoprazole 30MG Oral Capsule Delayed Release 019 12:00:00 AM EDT 1 aborted lansoprazole 30 MG Delayed Release Oral Capsule [place] ([facility]) atorvastatin 40 MG Oral Tablet Atorvastatin Calcium 40 MG Oral Tablet Atorvastatin Calcium 40MG Oral Tablet 12/03/2018 12:00:00 AM EDT 1 aborted atorvastatin 40 MG Oral Tablet [facility] Zolpidem tartrate 5 MG Oral Tablet Zolpidem Tartrate 5 MG Oral Tablet Zolpidem Tartrate 5MG Oral Tablet 11/12/2018 12:00:00 AM EDT 1 aborted zolpidem tartrate 5 MG Oral Tablet [facility] ([facility]) 5 mg 11/12/2018 12:00:00 AM EDT tablet [...] A MONTH SOLD: 02/28/2019 [facility] D3-50 [id number] Oral Capsule D3-50 [id number] Oral Capsule 12:00:00 AM EDT 1 aborted D3-50 [facility] ([facility]) rivaroxaban 20 MG Oral Tablet [Xarelto] Xarelto 20MG O ral Tablet Xarelto 20MG Oral Tablet 08/14/2018 12:00:00 AM EDT 1 aborte d rivaroxaban 20 MG Oral Tablet [Xarelto] [facility] ([facility]) Estradiol 0.1 MG/ML Vaginal Cream Estradiol 0.1MG/GM V aginal Cream Estradiol 0.1MG/GM Vaginal Cream 08/14/2018 12:00:00 AM EDT aborted estradiol 0.1 MG/ML Vaginal Cream [place] ([facility]) silodosin 8 MG Oral Capsule [Rapaflo] Rapaflo 8MG Oral Capsule Rapaflo 8MG Oral Capsule 08/14/2018 12:00:00 AM EDT aborted silodosin 8 MG Oral Capsule [Rapaflo] [place] ([facility]) BLOOD SUGAR DIAGNOSTIC 08/14/2018 12:00:00 AM EDT strip 200 DIRECTED, TEST 3 TIMES A DAY AND NEEDED DIRECTED, TEST 3 TIMES A DAY AND NEEDED SOLD: 03/11/2019 [facility] 90 mcg/actuation 08/14/2018 12:00:00 AM EDT [...] BEDTIME, USE NEEDED, ONLY RARELY SOLD: 06/07/2019 [facility] Pramipexole dihydrochloride 0.125 MG Ora l Tablet Pramipexole Dihydrochloride 0.125MG Oral Tablet Pramipexole Dihydrochloride 0.125MG Oral Tablet 2018 12:00:00 AM EDT 1 aborted pramipexole dihydrochloride 0.125 MG Oral Tablet [facility] ([facility]) OneTouch Ultra Blue In Vitro Strip OneTouch Ultra Blue In Vi tro Strip 08/14/2018 12:00:00 AM EDT aborted OneTou Ultra Blue [facility] ([facility]) Metoclopramide 10 MG Oral Tablet Metoclopramide HCl 10 MG Oral Tablet Metoclopramide HCl 10MG Oral Tablet 08/14/2018 12:00:00 AM EDT aborted metoclopramide 10 MG Oral Tablet [facility] ([facility]) POLYETHYLENE GLYCOL 3350 142 MG/ML Oral Solution Polyethylene Glycol 3350 Oral Powder Polyethylene Glycol 3350 Oral Powder 08/14/2018 12:00:00 AM EDT aborted polyethylene glycol 3350 170 00 MG Powder for Oral Solution [facility] ([facility]) Bisoprolol Fumarate 5 MG Oral Tablet Bisoprolol Fumara te 5MG Oral Tablet Bisoprolol Fumarate 5MG Oral Tablet 08/14/2018 12:00:00 AM EDT aborted bisoprolol fumarate 5 MG Oral Ta blet [facility] ([facility]) Losartan Potassium 25 MG Oral Tablet Losartan Potassiu m 25MG Oral Tablet Losartan Potassium 25MG Oral Tablet 08/14/2018 12:00:00 AM EDT aborted losartan potassium 25 MG Oral Ta blet [facility] ([facility]) Losartan Potassium 25 MG Oral Tablet LOSARTAN POTASSIUM 12/2018 12:00:00 AM EDT tablet 90 TAKE ONE TABLET BY MOUTH ESTRELLA DAY TAKE ONE TABLET BY MOUTH EVERY DAY SOLD: 04/10/2019 [facility] 0.01 % (0.1 mg/gram) 06/06/2018 12:00:00 AM EST cream 42 APPLY 1/4 GRAM TO PERIURETHRAL AREA DAILY APPLY 1/4 GRAM TO PERIURETHRAL AREA DAILY SOLD: 06/07/2019 [facility] FIBER PO 05/28/2018 12:00:00 AM EST aborted FIBER POWD [facility] Compressor/Nebulizer Miscellaneous Compressor/Nebulizer Misc ellaneous 11/10/2015 12:00:00 AM EDT aborted Compre ssor/Nebulizer [facility] ([facility]) Losartan Potassium 25 MG Oral Tablet losartan (COZAAR) 25 MG tablet losartan (COZAAR) 25 MG tablet 25 mg Oral aborted Ta ke 25 mg by mouth daily [facility] Insurance Providers Payer name Policy type / Coverage type Policy ID Covered constitution party ID Covered constitution party's relationship to nino Policy Nino Plan Information MEDICARE [id number] BCBS FEDERAL EMPLOYEE PROGRAM [id number] SELF PAY BLUE CROSS FED EMPLOYEE PLAN [id number] SPO [id number] MEDICARE PART A [id number] MEDICARE C [id number] S [id number] [place] FEDERAL B [id number] S [id number] EXCELLUS BCBS [id number] MEDICARE [id number] MEDICARE [id number] Emili [id number] EXCELLUS BCBS [id number] Spo [id number] BCBS of [place] Other 0 Family Depend ent [place] 0 Medicare Part A of [place] Other 0 Self 0 [place] Other 0 Family Depend ent [place] 0 Medicare Part A of [place] Other 0 Self 0 [place] Other 0 Family Depend ent [place] 0 Medicare Part A of [place] Other 0 Self 0 [place] of [place] Other 0 Family Depend ent [place] Ann [place] 0 Medicare Part A of [place] Other 0 Self 0 SELF PAY BLUE CROSS FED EMPLOYEE PLAN [id number] SPO [id number] MEDICARE PART A [id number] SP [id number] SELF PAY BCBS of [place] Other 0 Family Depend ent [place] Ann [place] 0 Medicare Part A of [place] Other 0 Self 0 [place] Other 0 Family Depend ent Lee Ann [place] 0 Medicare Part [place] of [place] Other 0 Self 0 [place] Other 0 Family Depend ent Lee Ann [place] 0 Medicare Part A of [place] Other 0 Self 0 [place] Other 0 Family Depend ent Lee [place] 0 Medicare Part A of [place] Other 0 Self 0 SELF PAY BLUE CROSS FED EMPLOYEE PLAN [id number] SPO [id number] MEDICARE PART A [id number] SP [id number] [place] Other 0 Family Depend ent [place] 0 Medicare Part A of [place] Other 0 Self 0 SELF PAY BLUE CROSS FED EMPLOYEE PLAN [id number] SPO [id number] MEDICARE PART A [id number] SP [id number] BCBS of [place] Other 0 Famil y Dependent Lee Ann Frank 0 Medicare Part B of [place] Other 0 Se lf 0 [place] Other 0 Family Depend ent Lee Ann Frank 0 Medicare Part A of [place] Other 0 Self 0 [place] Other 0 Family Depend ent Lee Ann Frank 0 Medicare Part A of [place] Other 0 Self 0 [place] Other 0 Family Depend ent Lee Ann Frank 0 Medicare Part A of [place] Other 0 Self 0 [place] Other 0 Family Depend ent Lee Ann [place] 0 Medicare Part A of [place] Other 0 Self 0 BCBS [place] Medigap Part B [id number] Family Dependent [id number] BCBS Federal Medigap Part B [id number] Family Dependent [id number] Medicare Medicare Primary [id number] Self [id number] BCBS of [place] Other 0 Family Depend ent Lee Ann Frank 0 Medicare Part A of [place] Other 0 Self 0 [place] Other 0 Family Depend ent Lee Ann Frank 0 Medicare Part A of [place] Other 0 Self 0 MEDICARE PI PI [place]BS of [place] Other 0 Family Depend ent Lee Ann [place] 0 Medicare Part A of [place] Other 0 Self 0 SELF PAY BLUE CROSS FED EMPLOYEE PLAN [id number] SPO [id number] MEDICARE PART A [id number] SP [id number] [place]BS [place] Other 0 Family Depend ent [place] 0 Medicare Part A of [place] Other 0 Self 0 SELF PAY BLUE CROSS FED EMPLOYEE PLAN [id number] SPO [id number] MEDICARE PART A [id number] SP [id number] SELF PAY BLUE CROSS FED EMPLOYEE PLAN [id number] SPO [id number] MEDICARE PART A [id number] SP [id number] BCBS [place] Medigap Part B [id number] Family Dependent [id number] BCBS Federal Medigap Part B [id number] Family Dependent [id number] Medicare Medicare Primary [id number] Self [id number] BCBS Federal Plan Medigap Part B [id number] Family Dependent [id number] Medicare Natl Gov't Servi Medicare Primary [id number] Self [id number] BC/BS Federal [id number] Blue Cross/Shield [id number] Medicare [id number] Medicare [id number] Medicare [id number] Medicare [id number] A MEDICARE [id number] SP [id number] BCBS CN[place] Medigap Part B [id number] Family Dependent [id number] BCBS Federal Medigap Part B [id number] Family Dependent [id number] Medicare Medicare Primary [id number] Self [id number] BCBS of [place] Other 0 Family Depend ent Lee Ann Frank 0 Medicare Part A of [place] Other 0 Self 0 [place] Other 0 Family Depend ent Lee Ann [place] 0 Medicare Part [place] of [place] Other 0 Self 0 MEDICARE [id number] SP [id number] A [place] Other 0 Family Depend ent Lee Ann [place] 0 Medicare Part [place] of [place] Other 0 Self 0 EXCELLUS BLUE CROSS BLUE SHIELD HEA [id number] S [id number] MEDICARE MCA [id number] S [id number] MEDICARE MCA [id number] S [id number] [place] Other 0 Family Depend ent Lee Ann Frank 0 Medicare Part A of [place] Other 0 Self 0 BCBS FEDERAL EMPLOYEE PROGRAM [id number] HU2 [id number] EXCELLUS BCBS PI PI MEDICARE [id number] Emili [id number] A BS Federal Medigap Part B [id number] Family Dependent [id number] Medicare [facility] Medicare Primary [id number] Self [id number] Blue Shield Federal Medigap Part B [id number] Family Dependen t [id number] [place] Medicare Primary [id number] Self [id number] BCBS [place] Medigap Part B [id number] Family Dependent [id number] BCBS Federal Medigap Part B [id number] Family Dependent [id number] Medicare Medicare Primary [id number] Self [id number] MEDICARE [id number] SP [id number] BLUE CROSS FED EMPLOYEE PLAN [id number] SPO [id number] BC BS [place] FEDERAL B [id number] S [id number] MEDICARE C [id number] S [id number] A [place] Other 0 Family Depend ent Lee Ann [place] 0 Medicare Part [place] of [place] Other 0 Self 0 [place] Other 0 Family Depend ent Lee Ann Frank 0 Medicare Part A of [place] Other 0 Self 0 MEDICARE [id number] SP [id number] A BCBS Federal Plan Medigap Part B [id number] Family Dependent [id number] Medicare Natl Gov't Servi Medicare Primary [id number] Self [id number] BCBS Federal Plan Medigap Part B [id number] Family Dependent [id number] Medicare Natl Gov't Servi Medicare Primary [id number] Self [id number] Medicare Part A of [place] Other 0 Self 0 [place] Other 0 Family Depend ent Lee Ann [place] 0 Medicare Part [place] of [place] Other 0 Self 0 [place] Other 0 Family Depend ent Lee Ann [place] 0 Medicare Part A of [place] Other 0 Self 0 [place] Other 0 Family Depend ent Lee Ann [place] 0 Medicare Part A of [place] Other 0 Self 0 [place]BS of [place] Other 0 Family Depend ent Lee Ann Frank 0 Medicare Part A of [place] Other 0 Self 0 [place] of [place] Other 0 Family Depend ent Lee Ann [place] 0 Medicare Part A of [place] Other 0 Self 0 [place] Other 0 Family Depend ent Lee Ann [place] 0 Medicare Part A of [place] Other 0 Self 0 [place]BS [place] Other 0 Family Depend ent Lee Ann Frank 0 Medicare Part A of [place] Other 0 Self 0 [place] of [place] Other 0 Family Depend ent Lee Ann [place] 0 Medicare Part [place] of [place] Other 0 Self 0 [place] Other 0 Family Depend ent Lee Ann Frank 0 Medicare Part A of [place] Other 0 Self 0 [place] Other 0 Family Depend ent Lee Ann [place] 0 Medicare Part A of [place] Other 0 Self 0 [place] Other 0 Family Depend ent Lee Ann Frank 0 Medicare Part A of [place] Other 0 Self 0 [place] Other 0 Family Depend ent Lee Ann Frank 0 Medicare Part A of [place] Other 0 Self 0 [place] Other 0 Family Depend ent Lee Ann Frank 0 BCBS FEDERAL EMPLOYEE PROGRAM [id number] HU2 [id number] BCBS Federal Plan Medigap Part B [id number] Family Dependent [id number] Medicare Natl Gov't Servi Medicare Primary [id number] Self [id number] BCBS Federal Medigap Part B [id number] Self [id number] Medicare - NGS Medicare Primary [id number] Self [id number] BCBS [place] Medigap Part B [id number] Family Dependent [id number] BCBS Federal Medigap Part B [id number] Family Dependent [id number] Medicare Medicare Primary [id number] Self [id number] BCBS CN[place] Medigap Part B [id number] Family Dependent [id number] BCBS Federal Medigap Part B [id number] Family Dependent [id number] Medicare Medicare Primary [id number] Self [id number] BCBS Federal Plan Medigap Part B [id number] Family Dependent [id number] Medicare Natl Gov't Servi Medicare Primary [id number] Self [id number] BCBS Federal Plan Medigap Part B [id number] Family Dependent [id number] Medicare Natl Gov't Servi Medicare Primary [id number] Self [id number] EXCELLUS BCBS FEDERAL [id number] HU2 [id number] BCBS CN[place] Medigap Part B [id number] Family Dependent [id number] Medicare Medicare Primary [id number] Self [id number] BCBS Federal Plan Medigap Part B [id number] Family Dependent [id number] Medicare Natl Gov't Servi Medicare Primary [id number] Self [id number] BCBS Federal Plan Medigap Part B [id number] Family Dependent [id number] Medicare Natl Gov't Servi Medicare Primary [id number] Self [id number] EXCELLUS BCBS FEDERAL [id number] HU2 [id number] MEDICARE [id number] SP [id number] A EXCELLUS BCBS FEDERAL [id number] HU2 [id number] BS Federal Medigap Part B [id number] Family Dependent [id number] [place] Primary [id number] Self [id number] BS Federal Medigap Part B [id number] Family Dependent [id number] [place] Medicare Primary [id number] Self [id number] BCBS Federal Plan Medigap Part B [id number] Family Dependent [id number] Medicare Natl Gov't Servi Medicare Primary [id number] Self [id number] EXCELLUS BCBS FEDERAL [id number] HU2 [id number] MEDICARE [id number] SP [id number] A MEDICARE [id number] SP [id number] A BCBS Federal Plan Medigap Part B Family Dependent Medicare Natl Gov't Servi Medicare Primary Self Blue Shield Federal Medigap Part B Family Dependen t [place] Medicare Primary Self BLUE CROSS FED EMPLOYEE PLAN [id number] SPO [id number] EXCELLUS BCBS [id number] Spo [id number] BS Federal [place] Part B Family Dependent [place] Medicare Primary Self BC BS [place] [facility] B [id number] P [id number] BC/BS U/W - Federal Plans Medigap Part B Family De pendent BC/BS Of [place] Part B [place] Medicare Primary Self BC BS [place] [facility] [id number] HU2 [id number] SELF PAY 2 UNAVAILABLE 1 UNAVAILA BLE BC BLUE CARD 1 [id number] MEDICARE 4 [id number] 1 [id number] A MEDICARE 4 [id number] 1 [id number] A [facility] 2 [id number] BLUE CROSS O [id number] SP [id number] MEDICARE PART A M [id number] S [id number] BLUE CROSS O [id number] SP [id number] MEDICARE M [id number] S [id number] A MEDICARE TASHA M [id number] S [id number] BLUE CROSS O [id number] SP [id number] BLUE CROSS [id number] SPO [id number] A Problems, Conditions, and Diagnoses Code Display Name Description Problem Type Effective Dates Data Source(s) N17.9 MKA (acute kidney injury) MAK (acute kidney injury) [id number] 03/15/2020 12:00:00 AM [facility] 22298 Hypothyroidism Hypothyroidism Problem 02/10/2020 12:00: 00 AM EST BOB ([facility]) 26014 Hypothyroidism Hypothyroidism Problem 02/10/2020 12:00: 00 AM EST Revision3 ([facility]) [id number] Essential hypertension Essential hypertension Problem 06/12/2019 12:00:00 AM EDT MEDKENDAL ([facility], ) 307.42 Primary Insomnia Primary Insomnia Problem 06/09/2019 12 :00:00 AM EDT BOB ([facility]) 307.42 Primary Insomnia Primary Insomnia Problem 06/09/2019 12 :00:00 AM EDT BOB ([facility]) 307.42 Primary Insomnia Primary Insomnia Problem 06/09/2019 12 :00:00 AM EDT BOB ([facility]) 307.42 Primary Insomnia Primary Insomnia Problem 06/09/2019 12 :00:00 AM EDT BOB ([facility]) 307.42 Primary Insomnia Primary Insomnia Problem 06/09/2019 12 :00:00 AM EDT BOB ([facility]) 307.42 Primary Insomnia Primary Insomnia Problem 06/09/2019 12 :00:00 AM EDT BOB ([facility]) 307.42 Primary Insomnia Primary Insomnia Problem 06/09/2019 12 :00:00 AM EDT BOB ([facility]) E78.5 Hyperlipidemia, unspecified E78.5 - Hyperlipidemia, un specified Diagnosis 03/30/2020 09:56:00 AM [employer] I10 Essential (primary) hypertension I10 - Essential (primary) hypertension Diagnosis 03/30/2020 09:56:00 AM [facility] E11.69 Type 2 diabetes mellitus with other spec ified complication E11.69 - Type 2 diabetes mellitus with other specified complication Diagnosis 03/30/2020 09:56:[facility]119 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 heart disease of torres martinez Diagnosis 03/15/2020 08:06:24 AM [facility] I73.9 Peripheral vascular disease, unspecified Peripheral vascular disease, unspecified Diagnosis 03/04/2020 12:58:07 PM [facility] F17.200 Nicotine dependence, unspecified, uncomp licated Nicotine dependence, unspecified, uncomp Diagnosis 03/04/2020 12:58:07 PM [facility] E78.00 Pure hypercholesterolemia, unspecified P ure hypercholesterolemia, unspecified Diagnosis 03/04/2020 12:58:07 PM [facility] 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 I10 Essential (primary) hypertension Essential (primary) h ypertension Diagnosis 03/04/2020 12:58:07 PM EST [facility] I44.7 Left bundle-branch block, unspecified Le ft bundle-branch block, unspecified Diagnosis 03/04/2020 12:58:07 PM EST [facility] E11.9 Type 2 diabetes mellitus without complic ations Type 2 diabetes mellitus without complic Diagnosis 03/04/2020 12:58:07 PM EST [facility] I50.20 Unspecified systolic (congestive) heart failure Unspecified systolic (congestive) heart Diagnosis 09/02/2019 01:19:19 PM EDT [facility] N76.0 Acute vaginitis N76.0 - Acute vaginitis Diagnosis 0 07/21/2019 08:06:00 AM EDT [place] [employer] N39.0 Urinary tract infection, site not specif ied N39.0 - Urinary tract infection, site not specified Diagnosis 07/21/2019 08:06:00 AM EDT [employer] Surgeries/Procedures Procedure Description Date Indications Data Source(s) POCT AMB EKG POCT AMB EKG Routine 03/15/2020 10:17 AM EST Coronary artery disease involving torres martinez coronary artery of torres martinez heart with angina pectoris 03/15/2020 03:17:00 PM EST Coronary cat ry disease involving torres martinez coronary artery of torres martinez heart with angina pectoris [facility] 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 CREATINE KINASE TOTAL CK Routine 03/11/2020 3:34 AM EST 03/11/2020 08:34:00 AM EST [facility] TROPONIN QUANTITATIVE TROPONIN I Routine 03/11/2020 03/11/2020 12:00:00 AM [facility] BLOOD COUNT COMPLETE AUTO&AUTO DIFRNTL WBC COUNT CBC AND DIFFER ENTIAL Routine 03/11/2020 03/11/2020 12:00:00 AM [facility] HEPATIC FUNCTION PANEL HEPATIC FUNCTION PANEL Routine 03/11/2020 03/11/2020 12:00:00 AM EST [facility] BASIC METABOLIC PANEL CALCIUM TOTAL BASIC METABOLIC PANEL Routine 03/11/2020 03/11/2020 12:00:00 AM EST [facility] HEMOGLOBIN GLYCOSYLATED A1C HEMOGLOBIN A1C Routine 02/10/2020 02/10/2020 12:00:00 AM EST [facility] Osteopenia 08/23/2018 Osteopenia 08/23/2018 02/10/2020 12:00:00 AM ES T BOB ([facility]) History of type 2 diabetes mellitus History of type 2 diabet es mellitus 02/10/2020 12:00:00 AM [facility] Diverticulosis of intestine Diverticulosis of intestine 01/31 12:00:00 AM EST [facility] Colon polyps Colon polyps 02/10/2020 12:00:00 AM EST G REENWAY [facility] section 1976 section 197602/10/2020 12:00:00 A M EST BOB ([facility]) History of tonsillectomy 8 years old History of tonsillecto my 8 years old 02/10/2020 12:00:00 AM EST [facility]OB [facility] History of hysterectomy 1976 History of hysterectomy 197602/10/2020 12:00:00 AM EST BOB ([facility]) History of cholecystectomy 1976 History of cholecystectomy 197602/10/2020 12:00:00 AM EST BOB ([facility]) Hemoglobin; Glycated A1c Hemoglobin; Glycated A1c 02/10/2020 12:00: 00 AM EST BOB ([facility]) [facility] (fq) visit, established patient; a medically-necessary, gftp-ww-tqyk encounter (one-on-one) between an established patient and a fq practitioner during which time one or more fq services are rendered and includes a typical bundle of medicare-covered services that would be furnished roof bolter operator to a patient receiving a fq visit FQ Visit, established patient (Signi/Sep Eval. & Man.) 02/10/2020 12:00:00 AM EST [facility] Hemoglobin; Glycated A1c Hemoglobin; Glycated A1c 02/10/2020 12:00: 00 AM EST [facility]OB [facility] NORTH POST-VOIDING RESIDUAL URINE&/BLDR CAP 12/09/2019 12:00:00 AM EDT KAYE ([facility]) BLOOD COUNT COMPLETE AUTO&AUTO DIFRNTL WBC COUNT CBC AND DIFFER ENTIAL Routine 10/16/2019 10/16/2019 12:00:00 AM EDT [facility] THYROID STIMULATING HORMONE TSH TSH Routine 10/16/2019 10/16/2019 12:00:00 AM EDT [facility] HEPATIC FUNCTION PANEL HEPATIC FUNCTION PANEL Routine 10/16/2019 10/16/2019 12:00:00 AM EDT [facility] LIPID PANEL LIPID PANEL Routine 10/16/2019 10/16/2019 1 2:00:00 AM EDT [facility] BASIC METABOLIC PANEL CALCIUM TOTAL BASIC METABOLIC PANEL Routine 10/16/2019 10/16/2019 12:00:[address] [facility] [place]) visit, established patient; a medically-necessary, ruwv-vt-mxce encounter (one-on-one) between an established patient and a [facility] practitioner during which time one or more [facility] services are rendered and includes a typical bundle of medicare-covered services that would be furnished roof bolter operator to a patient receiving a fq visit FQHC Visit, established patient 10/10/2019 12:00:00 AM EDT BOB ([facility]) Ekg With Interpretation and Report Ekg With Interpretation a nd Report 10/10/2019 12:00:00 AM EDT BOB ([facility]) Hemoglobin; Glycated A1c Hemoglobin; Glycated A1c 10/10/2019 12:00: 00 AM EDT BOB ([facility]) Osteopenia 08/23/2018 Osteopenia 08/23/2018 10/10/2019 12:00:00 AM ED T [facility] History of type 2 diabetes mellitus History of type 2 diabet es mellitus 10/10/2019 12:00:00 AM EDT BOB ([facility]) Diverticulosis of intestine Diverticulosis of intestine 09/30 12:00:00 AM EDT [facility] Colon polyps Colon polyps 10/10/2019 12:00:00 [...] Spirometry 08/22/2019 12:00:00 AM EDT M ADEBAYO ([facility], ) [facility] (fq) visit, established patient; a medically-necessary, mgsi-ui-otne encounter (one-on-one) between an established patient and a [facility] practitioner during which time one or more [facility] services are rendered and includes a typical bundle of medicare-covered services that would be furnished roof bolter operator to a patient receiving a fq visit FQHC Visit, established patient 07/24/2019 12:00:00 AM EDT BOB ([facility]) Osteopenia 08/23/2018 Osteopenia 08/23/2018 07/24/2019 12:00:00 AM [...] of hysterectomy 197607/24/2019 12:00:00 AM EDT BOB ([facility]) History of cholecystectomy 1976 History of cholecystectomy 197607/24/2019 12:00:00 AM EDT BOB ([facility]) [facility] ([facility]) visit, established patient; a medically-necessary, qjrc-pt-ugoh encounter (one-on-one) between an established patient and a [facility] practitioner during which time one or more [facility] services are rendered and includes a typical bundle of medicare-covered services that would be furnished roof bolter operator to a patient receiving a [facility] visit [facility] Visit, established patient 07/21/2019 12:00:00 AM EDT BOB ([facility]) Urinalysis, by Dip Stick or Tablet Reagent for Bilirub in, Gl Urinalysis, by Dip Stick or Tablet Reagent for Bilirubin, Gl 07/21/2019 12:00:00 AM EDT BOB ([facility]) Revascularization,Endovascular,Transluminal Angioplasty 06/26/2019 12:00:00 AM EDT MEDENT ([facility] REVSC OPN/PRQ TIB/MARIBEL W/STNT/ANGIOP SM VSL 06/26/2019 12:00:00 AM EDT MEDENT ([facility], ) Angiography Extremity Bilateral 06/26/2019 12:00:00 AM EDT MEDENT ([facility], ) Angiography Selective, Each Addtl Vessel Studied After Exam 06/26/2019 12:00:00 AM EDT MEDENT ([facility], ) Moderate Sedation Services; Same Phys Intl 15 Mins; PT >= 5 Years 06/26/2019 12:00:00 AM EDT MEDENT ([facility], ) RH/[facility] code for distant site telehealt h services (Synchronous telemedicine service rendered via real-time interactive audio and video telecommunication system) RH/[facility] code for distant site telehealt h services (Synchronous telemedicine service rendered via real-time interactive audio and video telecommunication system) 06/23/2019 12:00:00 AM EDT CORTEZ Finley ([facility]) [facility] ([facility]) visit, established patient; a medically-necessary, rhmb-sp-vyhi encounter (one-on-one) between an established patient and a fq practitioner during which time one or more fqhc services are rendered and includes a typical bundle of medicare-covered services that would be furnished roof bolter operator to a patient receiving a fqhc visit [facility] Visit, established patient (Synchronous telemedicine service rendered via real-time interactive audio and video telecommunication system) 06/23/2019 12:00:00 AM RAVINDER ROJAS [facility] Qual nonMD est pt 5-10m (Via interactive audio and video telecommunications system) Qual nonMD est pt 5-10m (Via interactive audio and video telecommunications system) 06/23/2019 12:00:00 AM RAVINDER GUERRA ([facility]) Hemoglobin; Glycated A1c Hemoglobin; Glycated A1c 06/09/2019 12:00: 00 AM RAVINDER ROJAS ([facility]) [facility] (fq) visit, ippe or awv; a fqhc visit that includes an initial preventive physical examination (ippe) or annual wellness visit (awv) and includes a typical bundle of medicare-covered services that would be furnished roof bolter operator to a patient receiving an ippe or awv FQ Visit, IPPE or AWV 06/09/2019 12:00:00 AM RAVINDER ROJAS ([facility]) Annual wellness visit, includes a person alized prevention plan of service (pps), subsequent visit AHR -Subsequent Annual Wellness Visit 06/09/2019 12:00 :00 AM RAVINDER ROJAS ([facility]) [facility] (fq) visit, established patient; a medically-necessary, hkey-rx-tmig encounter (one-on-one) between an established patient and a fq practitioner during which time one or more fqhc services are rendered and includes a typical bundle of medicare-covered services that would be furnished roof bolter operator to a patient receiving a fqhc visit FQHC Visit, established patient 03/28/2019 12:00:00 AM ALEX ROJAS ([facility]) Osteopenia 08/23/2018 Osteopenia 08/23/2018 03/28/2019 12:00:00 AM ALAN ROJAS [facility] History of type 2 diabetes mellitus History of type 2 diabet es mellitus 03/28/2019 12:00:00 AM EST BOB ([facility]) Diverticulosis of intestine Diverticulosis of intestine 03/03 12:00:00 AM EST BOB ([facility]) Colon polyps Colon polyps 03/28/2019 12:00:00 AM EST G REENWAY ([facility]) section 1977 section 197603/28/2019 12:00:00 A M EST BOB ([facility]) History of tonsillectomy 8 years old History of tonsillecto my 8 years old 03/28/2019 12:00:00 AM EST BOB ([facility]) History of hysterectomy 1976 History of hysterectomy 197603/28/2019 12:00:00 AM EST BOB ([facility]) History of cholecystectomy 1976 History of cholecystectomy 197603/28/2019 12:00:00 AM EST [facility] ([facility]) Spirometry 02/18/2019 12:00:00 AM EST Emiliano FIORE ([facility], ) Results ID Date Data Source [id number] 03/30/2020 02:33:00 PM [facility] Name Value Range Interpretation Code Description Data Mona rce(s) Supporting Document(s) CREAT RANDOM URINE 150.1 MG/DL [place] [facility] No Normal Ranges Available for this Pro cedure. MICROALBUMIN,URINE 37.0 MG/L [facility] MICRO[facility]BUM/CREATININE RATIO,UR 24.6 UG/MG CR 0.0-30.0 [facility] ID Date Data Source [id number] 03/30/2020 02:55:00 PM [facility] Name Value Range Interpretation Code Description Data Mona rce(s) Supporting Document(s) WHITE BLOOD COUNT 6.96 10^3/uL 4.00-10.50 N [place] [facility] RED BLOOD COUNT 4.55 10^6/uL 3.90-5.20 N [facility] HEMOGLOBIN 11.0 G/DL 11.5-15.6 L [facility] HEMATOCRIT 36.9 % 35.0-46.0 N [facility] MCV 81.1 FL 80.0-100.0 N [facility] MCH 24.2 PG 27.0-34.0 L [facility] MCHC 29.8 G/DL 32-36 L [facility] RDW 17.8 % 11.5-14.5 H [facility] PLATELET COUNT 268 10^3/uL 130-400 N [facility] MPV 10.6 FL 8.7-13.2 N [facility] GRAN % (AUTO) 60.7 % 42.0-75.0 N [facility] LYMPH % (AUTO) 24.9 % 20.0-51.0 N [facility] MONO % (AUTO) 11.6 % 2.0-15.0 N [facility] EOS % (AUTO) 1.4 % 0.0-11.0 N [facility] BASO % (AUTO) 1.0 % 0.0-2.0 N [facility] IG % (AUTO) 0.4 % 1.00-5.00 [facility] IG # (AUTO) 0.0 10^3/uL <0.5 [facility] GRAN # (AUTO) 4.22 10^3/uL 1.50-6.50 N [facility] LYMPH # (AUTO) 1.7 k/uL 1.0-5.0 N [facility] MONO # (AUTO) 0.81 k/uL 0.20-1.50 N [facility] EOS # (AUTO) 0.10 10^3/uL 0.00-1.10 N [facility] BASO # (AUTO) 0.07 10^3/uL 0.00-0.20 N [facility] ID Date Data Source [id number] 03/30/2020 02:33:00 PM EST [facility] Name Value Range Interpretation Code Description Data Mona rce(s) Supporting Document(s) SODIUM 139 MEQ/L 135-145 N [facility] POTASSIUM 4.3 MEQ/L 3.5-5.3 N [facility] CHLORIDE 102 MEQ/L 94-110 N [facility] CARBON DIOXIDE 32 MEQ/L 22-33 N [facility] ANION GAP 9 5-16 N [facility] BLOOD UREA NITRO 19 MG/DL 7-25 N [facility] CREATININE 0.9 MG/DL 0.6-1.4 N [facility] GFR 61.2 ML/MIN [place] [employer] Stage G2 - Mildly decreased kidney func tion The GFR is an estimate of the Glomerular Filtration Rate. It is an aid to assess a patient's renal function. It is not a conclusive diagnosis of kidney disease. GFR normal is >=90 The MDRD GFR calculation is considered valid between the ages of 18 and 75 years only. BUN/CREAT RATIO 21 8-36 [facility] GLUCOSE 93 MG/DL 70-100 [facility] CA 9.0 MG/DL 8.7-10.5 [facility] BILIRUBIN,TOTAL 0.3 MG/DL 0.1-1.3 N [facility] AST 19 U/L 5-40 [facility] ALT 14 U/L 5-48 [facility] ALKALINE PHOSPHATASE 85 U/L 40-140 [facility] TOTAL PROTEIN 6.1 G/DL 5.9-8.3 N [facility] ALBUMIN 4.3 G/DL 3.0-5.1 [facility] GLOBULIN 1.8 G/DL 1.5-3.5 [facility] ALB/GLOB RATIO 2.4 G/DL 1.0-3.0 [facility] ID Date Data Source [id number] 03/30/2020 02:33:00 PM [facility] Name Value Range Interpretation Code Description Data Mona rce(s) Supporting Document(s) TRIGLYCERIDES 119 MG/DL 45-150 [facility] CHOLESTEROL 105 MG/DL 125-200 [facility] LDL CHOLESTEROL 35 MG/DL 50-130 [facility] HDL CHOLESTEROL 46 MG/DL 32-96 [facility] CHOL/HDL RATIO 2.3 0-4.3 [facility] ID Date Data Source [id number] 03/30/2020 02:33:00 PM [facility] Name Value Range Interpretation Code Description Data Mona rce(s) Supporting Document(s) TSH 2.831 uIU/ML 0.470-4.200 [facility] Patients should not be tested for 73 ho urs post fluorescein dye angiography. A false depression of result may occur. ID Date Data Source [id number] 02/10/2020 02:52:00 PM [facility] ([facility]) Name Value Range Interpretation Code Description Data Mona rce(s) Supporting Document(s) Hemoglobin A1c/Hemoglobin.total in Blood 7.5 Abnormal (applies to non-numeric results) Hgb A1c [place] ([facility]) ID Date Data Source [id number] 12/09/2019 04:18:00 PM EDT [facility] ([facility] Name Value Range Interpretation Code Description Data Mona rce(s) Supporting Document(s) Urine RBC Laboratory test result 0-2 ME DENT ([facility]) Urine WBC Laboratory test result 0-5 ME [facility] ([facility]) Crystals Laboratory test result ME [facility] ([facility]) Epithelial Cells Laboratory test result [facility] ([facility]) Bacteria Laboratory test result ME DENT ([facility]) Hyaline casts [Presence] in Urine sediment by Light mi croscopy Laboratory test result [facility] ([facility]) Sperm Laboratory test result ME [facility] ([facility]) Yeast Laboratory test result ME DENT ([facility]) ID Date Data Source [id number] 12/09/2019 02:50:00 PM EDT [facility] ([facility]) Name Value Range Interpretation Code Description Data Mona rce(s) Supporting Document(s) Ua Nitrite Laboratory test result ME DENT ([facility]) Protein [Presence] in Urine by Test strip Laboratory test result [facility] ([facility] Glucose [Presence] in Urine 250 mg/dL [facility] ([facility]) Color of Urine Laboratory test result [facility] ([facility]) Ua Leuko Laboratory test result ME DENT ([facility]) Blood [Presence] in Urine by Visual Laboratory test result [facility] ([facility]) Ua Specific [place] 1.015 1.003-1.030 MEDE NT ([facility]) Clarity of Urine Laboratory test result [facility] ([facility]) Ketones [Presence] in Urine by Test strip Laboratory test result [facility] ([facility]) pH of Urine by Test strip 6.0 5.0-7.5 [facility] ([facility]) Urobilinogen [Mass/volume] in Urine by Test strip 0.2 E.U./dL 0.0-1.0 [facility] ([facility]) Bilirubin.total [Presence] in Urine by Test strip Laboratory test res ult [facility] ([facility]) ID Date Data Source [id number] 10/22/2019 12:00:[address] [facility] Jessica Carbajal Np Patient Name: [place] [facility]S [facility] 1945[place] [place] [address] Date of Exam: 10/22/2019PH#: Fax: [phone] EXAM: [...] intrapelvic disease. Findings asdescribed above.Accredited by the [place] [employer] in [place].Josy Puga, BIBIANA/jmcThank sussy for referring FRANCISCO NAILS to our office. Electronically Signed - JOSY PUGA DO 10/22/19 16:33 Name Value Range Interpretation Code Description Data Mona rce(s) Supporting Document(s) ID Date Data Source [id number] 10/10/2019 01:38:00 PM EDT [facility] ([facility]) Name Value Range Interpretation Code Description Data Mona rce(s) Supporting Document(s) Hemoglobin A1c/Hemoglobin.total in Blood 7.6 Abnormal (applies to non-numeric results) Hgb A1c [facility] ([facility]) ID Date Data Source [id number] 08/22/2019 10:55:00 AM EDT [facility] ([facility], ) Name Value Range Interpretation Code Description Data Mona rce(s) Supporting Document(s) FVC-Pred 2.92 L MED[facility] ([facility] ) PDFReport Laboratory test result MED[facility] ([facility]) FVC-LLN 2.22 L [facility] ([facility]) FVC-%Pred-Pre 79 L MED[facility] ([facility]) FVC-Pre 2.32 L [facility] ([facility]) Fev1-%Pred-Pre 85 L [facility] ([facility]) Fev1-Pre 1.87 L [facility] ([facility]) Fev1-Pred 2.20 L [facility] ([facility]) Fev1-LLN 1.61 L [facility] ([facility]) Fev6-Pred 2.78 L [facility] ([facility]) Fev6-Pre 2.32 L [facility] ([facility]) Fev6-LLN 2.10 L [facility] ([facility]) Zyq7evv-Vufc 75 % MED[facility] ([facility]) Fev6-%Pred-Pre 83 L [facility] ([facility]) Juo2csf-Zaa 81 % [facility] ([facility]) Jio4bmp-%Pred-Pre 107 % [facility] ([facility]) Jzl0jeg-Hvwf 95 % [facility] ([facility]) Whf6fwo-Thh 100 % [facility] ([facility]) Wnn9tsq-FCR 65 % [facility] ([facility]) Mfj9ppf-%Pred-Pre 104 % [facility] ([facility]) FEFMax-Pre 5.00 L/E/sec MED[facility] ([facility]) FEFMax-Pred 5.45 L/E/sec [facility] ([facility]) FEFMax-%Pred-Pre 91 L/E/sec [facility] ([facility]) Jcf3966-Aggv 1.77 L/E/sec [facility] ([facility]) FEFMax-LLN 3.72 L/E/sec [facility] ([facility]) Ypa2421-Gdb 1.87 L/E/sec [facility] ([facility]) Dah1084-JJY 0.52 L/E/sec [facility] ([facility]) Zng1188-%Pred-Pre 105 L/E/sec [facility] ([facility]) ExpTime-Pre 5.54 sec [facility] ([facility]) Lum8jef9-Rizr 79 % [facility] ([facility]) Knz9zsq5-%Pred-Pre 102 % [facility] ([facility]) Dlq5qrr4-Gjd 81 % [facility] ([facility]) Wvv6ghg7-LSL 70 % [facility] ([facility]) ID Date Data Source [id number] 07/21/2019 05:19:00 PM EDT [facility] ([facility]) Name Value Range Interpretation Code Description Data Mona rce(s) Supporting Document(s) Reported Physicians See Note Reported Physicians BBO ([facility]) Note: Reported Physicians:Ordering: Jessica Pollackending: Jessica Mcmahan ID Date Data Source [id number] 07/21/2019 05:19:00 PM EDT BOB ([facility]) Name Value Range Interpretation Code Description Data Mona rce(s) Supporting Document(s) GARDNERELLA BY DNA PROBE NEGATIVE GARDNERELLA BY DNA PROBE BOB ([facility]) Note: Responsible Observer: GARDNERELLA GARDNERELLA BY DNA PROBE 500.3075 (A) BARR[place] BY DNA PROBE POSITIVE Abnormal (applies to non-numeric results) [place] BY DNA PROBE BOB ([facility]) Note: Responsible Observer: [place] BY D NA [place] BY DNA PROBE 500.3050 (A) TRICHOMONAS BY DNA PROBE NEGATIVE TRICHOMONAS BY DNA PROBE BOB ([facility]) Note: TESTING PERFORMED BY NUCLEIC ACID HYBRIDIZATIONResponsible Observer: TRICHOMONAS TRICHOMONAS BY DNA PROBE 500.3100 (A) ID Date Data Source [id number] 07/21/2019 05:19:00 PM EDT BOB ([facility]) Name Value Range Interpretation Code Description Data Mona rce(s) Supporting Document(s) Reported Physicians See Note Reported Physicians BOB ([facility]) Note: Reported Physicians:Ordering: Jessica Pollackending: Jessica Mcmahan ID Date Data Source [id number] 07/21/2019 05:19:00 PM EDT BOB ([facility]) Name Value Range Interpretation Code Description Data Mona rce(s) Supporting Document(s) See Note Avila See Note Austin ROJAS ([facility]) Note: Run: 07/24/19 0745 INTERFACED REPORT Name: Francisco Nails Age/Sex: 74/F Location: [facility] Acct: [id number] Unit: [id number] Status: REG REF Room/Bed: Re07/21/19 Disch: Sharon Dr: Jessica Mcmahan NP Specimen #: [id number] Ordered : 07/22/19 Collected : 07/21/19 By: OFFICE Received: 07/22/19 By: DENA Source: VAGI Specimen Description: Comments: VAGINAL VAGINA Procedure Result GRAM STAIN Final GRAM POSITIVE RODS MANY GRAM NEGATIVE RODS RARE GENITAL CULTURE Final USUAL ADAM AFTER 24 HOURS USUAL ADAM AFTER 48 HOURS GENITAL CULTURE Preliminary (Corrected) USUAL ADAM AFTER 24 HOURS END OF REPORT ID Date Data Source [id number] 07/24/2019 07:45:00 AM EDT [facility] Run: 07/24/19 0745 INTERFACED REPORT Name: Francisco Nails Age/Sex: 74/F Location: [facility] Acct: [id number] Unit: [id number] Status: REG REF Room/Bed: Re07/21/19 Disch: Att Dr: Jessica Mcmahan NP Specimen #: [id number] Ordered : 07/22/19 Collected : 07/21/19 By: [...] rce(s) Supporting Document(s) ID Date Data Source [id number] 07/22/2019 02:46:00 PM EDT [facility] Name Value Range Interpretation Code Description Data Mona rce(s) Supporting Document(s) [place] BY DNA PROBE POSITIVE NEGATIVE A [facility] GARDNERELLA BY DNA PROBE NEGATIVE NEGATIVE [facility] TRICHOMONAS BY DNA PROBE NEGATIVE NEGATIVE [facility] TESTING PERFORMED BY NUCLEIC ACID HYBRI DIZATION ID Date Data Source [id number] 07/21/2019 05:00:00 PM EDT BOB ([facility]) Name Value Range Interpretation Code Description Data Mona rce(s) Supporting Document(s) Reported Physicians See Note Reported Physicians BOB ([facility]) Note: Reported Physicians:Ordering: Jessica Pollackending: Jessica Mcmahan ID Date Data Source [id number] 07/21/2019 05:00:00 PM EDT BOB ([facility]) Name Value Range Interpretation Code Description Data Mona rce(s) Supporting Document(s) See Note Avila See Note Austin BOB ([facility]) Note: Run: 07/24/19 0738 INTERFACED REPORT Name: Francisco Nails Age/Sex: 74/F Location: [facility] Acct: [id number] Unit: [id number] Status: REG REF Room/Bed: Re07/21/19 Disch: Sharon Dr: Jessica Mcmahan [employer]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[employer] Specimen #: [id number] Ordered : 07/22/19 Collected : 07/21/19 By: OFFICE Received: 07/22/19 By: DENA Source: URINE CC Specimen Description: Comments: Has been collected UCC Procedure Result COLONY COUNT Final COLONY COUNT 10,000 CFU/ML URINE CULTURE Final NO SIGNIFICANT GROWTH 24 HOURS NO SIGNIFICANT GROWTH 48 HOURS URINE CULTURE Preliminary (Corrected) NO SIGNIFICANT GROWTH 24 HOURS END OF REPORT ID Date Data Source [id number] 07/24/2019 07:38:00 AM EDT [facility] Run: 07/24/19 0738 INTERFACED REPORT Name: Francisco Nails Age/Sex: 74/F Location: [facility] Acct: [id number] Unit: [id number] Status: REG REF Room/Bed: Re07/21/19 Disch: Sharon Dr: Jessica Mcmahan NP Specimen #: [id number] Ordered : 07/22/19 Collected : 07/21/19 By: [...] rce(s) Supporting Document(s) ID Date Data Source [id number] 07/21/2019 12:00:00 AM RAVINDER ROJAS ([facility]) Name Value Range Interpretation Code Description Data Mona rce(s) Supporting Document(s) Color of Exudate from wound norm Normal Color GR EENWAY ([facility]) Blood [Presence] in Urine by Visual trace Abnormal (applies to non-numeric results) Blood BOB ([facility]) Bili neg Normal [facility]ili [facility] Leukocytes [#/volume] by Microscopy high power field in Urine sediment collected for unspecified duration neg Normal Leukocytes BOB ( [facility]) Glucose [Mass/volume] in Urine collected for unspecified duration n eg Normal Glucose BOB ([facility]) Ketone neg Normal Ketone [facility] ([facility]) pH of Vaginal fluid by Test strip neg Normal pH BOB ([facility]) Protein [Mass/volume] in Saliva (oral fluid) neg No rmal Protein BOB ([facility]) Nitrite [Presence] in Urine by Test strip neg Isabella l Nitrite BOB ([facility]) Specific gravity of Pericardial fluid by Refractometry 1.005 Abnormal (applies to non-numeric results) Specific [place] BOB ([facility]) Urobili neg Normal Urobili BOB ([facility]) ID Date Data Source [id number] 06/26/2019 09:06:00 AM EDT [facility]) Name Value Range Interpretation Code Description Data Mona rce(s) Supporting Document(s) Glucose [Mass/volume] in Capillary blood by Glucometer 98 mg/dL 83-110 Normal (applies to non-numeric results) [facility]) ID Date Data Source [id number] 06/26/2019 06:58:00 AM EDT [facility]) Name Value Range Interpretation Code Description Data Mona rce(s) Supporting Document(s) Glucose [Mass/volume] in Capillary blood by Glucometer 91 mg/dL 83-110 Normal (applies to non-numeric results) [facility]) ID Date Data Source [id number] 06/09/2019 12:40:00 PM EDT BOB ([facility]) Name Value Range Interpretation Code Description Data Mona rce(s) Supporting Document(s) Hemoglobin A1c/Hemoglobin.total in Blood 7.9 Abnormal (applies to non-numeric results) Hgb A1c [facility] ID Date Data Source [id number] 03/28/2019 05:42:00 PM EST [facility] ([facility]) Name Value Range Interpretation Code Description Data Mona rce(s) Supporting Document(s) Reported Physicians See Note Reported Physicians [facility] Note: Reported Physicians:Ordering: Jessica RichardsonAttending: Jessica Carbajal ID Date Data Source [id number] 03/28/2019 05:42:00 PM EST [facility] ([facility]) Name Value Range Interpretation Code Description Data [...] PROBE 500.3075 (A) ID Date Data Source [id number] 03/29/2019 01:42:00 PM EST [facility] Name Value Range Interpretation Code Description Data Mona rce(s) Supporting Document(s) [place] BY DNA PROBE POSITIVE NEGATIVE A [place] [facility] GARDNERELLA BY DNA PROBE POSITIVE NEGATIVE [facility] TRICHOMONAS BY DNA PROBE NEGATIVE NEGATIVE [facility] TESTING PERFORMED BY NUCLEIC ACID HYBRI DIZATION ID Date Data Source [id number] 03/03/2019 12:00:00 AM EST [facility] Sushant Daniels MD Patient Name: MATTHEW [id number] [facility] Date of : 1945[place] Date of Exam: 03/03/2019[place]AN[place] Kap[place] [address]NH#: Fax: [phone] EXAM: LOW DOSE CT LUNG [...] the time of the exam.Accredited by the [place] [employer] in [place].Cesia Hernandez, DONAVAN/Faith you for referring FRANCISCO NAILS to our office. Electronically Signed - CESIA HERNANDEZ MD 03/04/19 17:42 Name Value Range Interpretation Code Description Data Mona rce(s) Supporting Document(s) Procedure Social History Code Duration Value Status Description Data Source(s ) Alcohol intake 03/15/2020 12:00:00 AM EST No completed [facility] Cigarette pack-years 03/15/2020 12:00:00 AM EST UNK completed [facility] Cigarettes smoked current (pack per day) - Reported 03/15/20 12:00:00 AM EST UNK completed [facility] Smoking 03/15/2020 12:00:00 AM EST Current every day smoker co mpleted Current every day smoker [facility] Alcohol intake 03/04/2020 12:00:00 AM EST No completed [facility] Cigarette pack-years 03/04/2020 12:00:00 AM EST UNK completed [facility] Cigarettes smoked current (pack per day) - Reported 03/04/20 12:00:00 AM EST UNK completed [facility] Smoking 03/04/2020 12:00:00 AM EST Current every day smoker co mpleted Current every day smoker [facility] Smoking 02/10/2020 12:00:00 AM EST Smokes tobacco daily (findi ng) completed Smokes tobacco daily (finding) [facility] ([facility]) Smoking 12/09/2019 12:00:00 AM EDT current cigarette smoker co mpleted current cigarette smoker [facility] ([facility]) Smoking 10/10/2019 12:00:00 AM EDT Smokes tobacco [...] relating to drug misuse behavior (finding) BOB ([facility]) Assertion 06/09/2019 12:00:00 AM EDT Current drinker of al cohol (finding) completed Current drinker of alcohol (finding) [facility]OB ([facility]) Smoking 03/28/2019 12:00:00 AM EST Smokes tobacco daily (findi ng) completed Smokes tobacco daily (finding) BOB ([facility]) Vital Signs ID Date Data Source UNK Name Value Range Interpretation Code Description Data Source(s) Body mass index (BMI) [Ratio] 22.49 kg/m2 22.49 kg/m2 [facility] Body weight 59.421 kg 59.421 kg [facility] Body height 162.6 cm 162.6 cm [facility] Heart rate 65 /min 65 /min [facility] Diastolic blood pressure 80 mm[Hg] 80 mm[Hg] [facility] Systolic blood pressure 144 mm[Hg] 144 mm[Hg] [facility] Oxygen saturation in Arterial blood by Pulse oximetry 93 % 93 % [facility] Diastolic blood pressure 90 mm[Hg] 90 mm[Hg] [facility] Systolic blood pressure 138 mm[Hg] 138 mm[Hg] [facility] Oxygen saturation in Arterial blood by Pulse oximetry 93 % 93 % [facility] Body mass index (BMI) [Ratio] 22.18 kg/m2 22.18 kg/m2 [facility] Body weight 58.605 kg 58.605 kg [facility] Body height 162.6 cm 162.6 cm [facility] Heart rate 80 /min 80 /min [facility] Inhaled oxygen concentration 21 % 21 % [place] ([facility]) Inhaled oxygen flow rate 0 L/min 0 L/min [place] ([facility]) Oxygen saturation in Arterial blood by Pulse oximetry 95 % 95 % [place] ([facility]) PhenX - pain, abdominal - type and intensity protocol 7 7 [place] ([facility]) Body weight 127 [lb_av] 127 [lb_av] [facility] Respiratory rate 22 /min 22 /min [facility] Heart rate rhythm 1 1 [place] [facility] Heart rate 74 /min 74 /min [facility] Diastolic blood pressure 70 mm[Hg] 70 mm[Hg] [facility] Systolic blood pressure 140 mm[Hg] 140 mm[Hg] G REENWAY ([facility] Body mass index (BMI) [Ratio] 22.5 kg/m2 22.5 k g/m2 MEDENT ([facility], [facility]) Body height 64.5 [in_i] 64.5 [in_i] MEDENT ([facility], [facility]) 5'4.50" Body weight 133.00 [lb_av] 133.00 [lb_av] MEDEN T ([facility], [facility]) Body temperature 98.6 [degF] 98.6 [degF] MED[facility] ([facility], [facility]) Respiratory rate 16 /min 16 /min [facility] ( [facility], [facility]) Heart rate 80 /min 80 /min [facility] ([facility], [facility]) Diastolic blood pressure 76 mm[Hg] 76 mm[Hg] MEDENT ([facility], [facility]) Systolic blood pressure 140 mm[Hg] 140 mm[Hg] M EDENT ([facility], [facility]) Diastolic blood pressure 80 mm[Hg] 80 mm[Hg] [facility] ([facility]) Systolic blood pressure 122 mm[Hg] 122 mm[Hg] M EDENT ([facility]) Body mass index (BMI) [Ratio] 22.1 kg/m2 22.1 k g/m2 [facility] ([facility]) Body weight 58.514 kg 58.514 kg [facility] ([facility] Body weight 129.00 [lb_av] 129.00 [lb_av] MEDEN T ([facility]) Body height 64 [in_i] 64 [in_i] [facility] ([facility] 5'4" Inhaled oxygen concentration 21 % 21 % BOB ([facility]) temp taken by Sergey Pinto LPN Inhaled oxygen flow rate 0 L/min 0 L/min BOB ([facility]) temp taken by Sergey Pinto LPN Oxygen saturation in Arterial blood by Pulse oximetry 96 % 96 % BOB ([facility]) temp taken by Sergey Pinto LPN PhenX - pain, abdominal - type and intensity protocol 7 7 BOB ([facility]) temp taken by Sergey Pinto LPN Body surface area Derived from formula 1.61 m2 1.61 m2 BOB ([facility]) temp taken by Sergey Pinto LPN Body mass index (BMI) [Ratio] 21.6 kg/m2 21.6 k g/m2 BOB ([facility]) temp taken by Sergey Pinto LPN Body weight 126 [lb_av] 126 [lb_av] [facility] ( [facility] temp taken by Sergey Pinto LPN Body height 64 [in_i] 64 [in_i] BOB ([facility]) temp taken by Sergey Pinto LPN Body temperature 96.5 [degF] 96.5 [degF] [facility] ([facility]) temp taken by Sergey Pinto LPN Respiratory rate 18 /min 18 /min B[facility] ([facility]) temp taken by Sergey Pinto LPN Heart rate 68 /min 68 /min [facility] ([facility] temp taken by Sergey Pinto LPN Diastolic blood pressure 60 mm[Hg] 60 mm[Hg] BOB ([facility]) temp taken by Sergey Pinto LPN Systolic blood pressure 114 mm[Hg] 114 mm[Hg] G [place] ([facility]) temp taken by Sergey Pinto LPN Body weight 58.968 kg 58.968 kg [facility] Body mass index (BMI) [Ratio] 22.1 kg/m2 22.1 k g/m2 MED[facility] ([facility], ) Body weight 130.00 [lb_av] 130.00 [lb_av] MEDEN T ([facility]) Body height 64.25 [in_i] 64.25 [in_i] [facility] ([facility]) 5'4.25" Heart rate 94 /min 94 /min [facility] ([facility]) Diastolic blood pressure 72 mm[Hg] 72 mm[Hg] [facility] ([facility]) Systolic blood pressure 140 mm[Hg] 140 mm[Hg] [facility] ([facility]) Heart rate 90 /min 90 /min [facility] ([facility]) Diastolic blood pressure 70 mm[Hg] 70 mm[Hg] [facility] ([facility]) Systolic blood pressure 110 mm[Hg] 110 mm[Hg] [facility] ([facility]) Body weight 58.514 kg 58.514 kg [facility] ([facility]) Body mass index (BMI) [Ratio] 22.0 kg/m2 22.0 k g/m2 [facility] ([facility]) Body weight 129.00 [lb_av] 129.00 [lb_av] [facility] Body height 64.25 [in_i] 64.25 [in_i] [facility] ([facility]) 5'4.25" Body temperature 97.3 [degF] 97.3 [degF] [facility] ([facility]) Oxygen saturation in Arterial blood by Pulse oximetry 97 % 97 % [facility] ([facility]) Room Air Inhaled oxygen concentration 21 % 21 % BOB ([facility]) Inhaled oxygen flow rate 0 L/min 0 L/min [facility] ([facility]) Oxygen saturation in Arterial blood by Pulse oximetry 99 % 99 % [facility] ([facility]) PhenX - pain, abdominal - type and intensity protocol 7 7 [facility] ([facility]) Body weight 129 [lb_av] 129 [lb_av] [facility] Body temperature 98 [degF] 98 [degF] B[facility] ([facility]) Respiratory rate 18 /min 18 /min [facility] ([facility]) Heart rate rhythm 1 1 [place] ([facility]) Heart rate 56 /min 56 /min [facility] ([facility]) Diastolic blood pressure 60 mm[Hg] 60 mm[Hg] B[facility] ([facility]) Systolic blood pressure 110 mm[Hg] 110 mm[Hg] [facility] Inhaled oxygen concentration 21 % 21 % [facility] ([facility]) Inhaled oxygen flow rate 0 L/min 0 L/min [place] ([facility]) Oxygen saturation in Arterial blood by Pulse oximetry 98 % 98 % [place] ([facility]) PhenX - pain, abdominal - type and intensity protocol 7 7 [facility] ([facility]) Body surface area Derived from formula 1.62 m2 1.62 m2 BOB ([facility]) Body mass index (BMI) [Ratio] 22.1 kg/m2 22.1 k g/m2 [facility] ([facility]) Body weight 129 [lb_av] 129 [lb_av] [facility] ([facility]) Body height 64 [in_i] 64 [in_i] [facility] ([facility]) Body temperature 97.9 [degF] 97.9 [degF] [facility] ([facility]) Respiratory rate 18 /min 18 /min [facility] ([facility]) Heart rate 72 /min 72 /min BOB ([facility]) Diastolic blood pressure 72 mm[Hg] 72 mm[Hg] BOB ([facility]) Systolic blood pressure 102 mm[Hg] 102 mm[Hg] G [facility] ([facility]) Body weight 58.571 kg 58.571 kg [facility] ([facility], ) Body mass index (BMI) [Ratio] 22.0 kg/m2 22.0 k g/m2 [facility] ([facility], ) Body weight 129.12 [lb_av] 129.12 [lb_av] MED[facility] T ([facility], ) Body height 64.25 [in_i] 64.25 [in_i] [facility] ([facility], ) 5'4.25" Body temperature 98.9 [degF] 98.9 [degF] [facility] ([facility], ) Diastolic blood pressure 70 mm[Hg] 70 mm[Hg] [facility] ([facility]) Systolic blood pressure 108 mm[Hg] 108 mm[Hg] [facility] Body weight 58.628 kg 58.628 kg [facility] ([facility]) Body mass index (BMI) [Ratio] 22.0 kg/m2 22.0 k g/m2 [facility] ([facility]) Body weight 129.25 [lb_av] 129.25 [lb_av] [facility] ([facility]) Body height 64.25 [in_i] 64.25 [in_i] [facility] ([facility]) 5'4.25" Diastolic blood pressure 71 mm[Hg] 71 mm[Hg] [facility] ([facility]) Systolic blood pressure 145 mm[Hg] 145 mm[Hg] [facility] ([facility]) PhenX - pain, abdominal - type and intensity protocol 6 6 BOB ([facility]) Body surface area Derived from formula 1.62 m2 1.62 m2 BOB ([facility]) Body mass index (BMI) [Ratio] 22.0 kg/m2 22.0 k g/m2 [facility] ([facility]) Body weight 128 [lb_av] 128 [lb_av] [facility] Body height 64 [in_i] 64 [in_i] BOB ([facility]) Body temperature 97.9 [degF] 97.9 [degF] [place] [facility] ([facility]) Respiratory rate 20 /min 20 /min B[facility] ([facility]) Heart rate rhythm 1 1 [place] ([facility]) Heart rate 66 /min 66 /min [facility] ([facility]) Diastolic blood pressure 72 mm[Hg] 72 mm[Hg] BOB ([facility]) Systolic blood pressure 116 mm[Hg] 116 mm[Hg] G [place] ([facility]) Inhaled oxygen concentration 21 % 21 % [facility] ([facility]) Inhaled oxygen flow rate 0 L/min 0 L/min [facility] ([facility]) Oxygen saturation in Arterial blood by Pulse oximetry 97 % 97 % [facility] ([facility]) PhenX - pain, abdominal - type and intensity protocol 7 7 [facility] ([facility]) Body surface area Derived from formula 1.64 m2 1.64 m2 B[facility] ([facility]) Body mass index (BMI) [Ratio] 22.8 kg/m2 22.8 k g/m2 [facility] ([facility]) Body weight 133 [lb_av] 133 [lb_av] [facility] Body height 64 [in_i] 64 [in_i] [facility] ([facility]) Body temperature 98.2 [degF] 98.2 [degF] [place] ([facility]) Respiratory rate 20 /min 20 /min B[facility] ([facility]) Heart rate 65 /min 65 /min B[facility] ([facility]) Diastolic blood pressure 66 mm[Hg] 66 mm[Hg] B[facility] ([facility]) Systolic blood pressure 112 mm[Hg] 112 mm[Hg] G [place] ([facility]) Body weight 61.690 kg 61.690 kg [facility], ) Body mass index (BMI) [Ratio] 23.2 kg/m2 23.2 k g/m2 [facility] ([facility], ) Body weight 136.00 [lb_av] 136.00 [lb_av] [facility] Body height 64.25 [in_i] 64.25 [in_i] [facility] ([facility], ) 5'4.25" Oxygen saturation in Arterial blood by Pulse oximetry 95 % 95 % [facility] ([facility], ) Room Air Heart rate 74 /min 74 /min [facility] ([facility], ) Diastolic blood pressure 76 mm[Hg] 76 mm[Hg] [facility] ([facility], ) Systolic blood pressure 130 mm[Hg] 130 mm[Hg] [facility] Patient Treatment Plan of Care Planned Activity Planned Date Details Description Data Source (s) Losartan Potassium 50 MG Oral Tablet 03/04/2020 12:00:00 AM [facility] rivaroxaban 20 MG Oral Tablet 03/04/2020 12:00:00 AM [facility] Furosemide 20 MG Oral Tablet 02/19/2020 12:00:00 AM EST [facility] montelukast 10 MG Oral Tablet 02/11/2020 12:00:00 AM EST [facility] montelukast 10 MG Oral Tablet 02/10/2020 12:00:00 AM [facility] ([facility]) Bisoprolol Fumarate 5 MG Oral Tablet 02/10/2020 12:00:00 AM [facility] ([facility]) Metformin hydrochloride 500 MG Oral Tablet 02/06/2020 12:00:00 AM E [facility] ([facility]) Cyclobenzaprine hydrochloride 10 MG Oral Tablet 02/06/2020 12:00:00 AM [facility] ([facility]) FLUAD QUADRIVALENT 0.5 ML PRSY 02/02/2020 12:00:00 AM [facility] Acetaminophen 325 MG / Oxycodone Hydrochloride 5 MG Or al Tablet [Percocet] 01/22/2020 12:00:00 AM EDT B[facility] ([facility]) Acetaminophen 325 MG / Oxycodone Hydrochloride 5 MG Or al Tablet [Percocet] 12/23/2019 12:00:00 AM EDT B[facility] ([facility]) Zolpidem tartrate 5 MG Oral Tablet 11/25/2019 12:00:00 AM EDT B[facility] ([facility]) Acetaminophen 325 MG / Oxycodone Hydrochloride 5 MG Or al Tablet [Percocet] 11/25/2019 12:00:00 AM EDT [facility] ([facility]) rivaroxaban 20 MG Oral Tablet 11/18/2019 12:00:00 AM EDT [facility] Acetaminophen 325 MG / Oxycodone Hydrochloride 5 MG Or al Tablet [Percocet] 10/28/2019 12:00:00 AM EDT BOB ([facility]) 24 HR venlafaxine 75 MG Extended Release Oral Capsule 10/10/2019 12:00:00 AM EDT BOB ([facility]) Levothyroxine Sodium 0.05 MG Oral Tablet 10/10/2019 12:00:00 AM EDT BOB ([facility]) glipiZIDE XL 10 MG Oral Tablet Extended Release 24 Domonique r 10/10/2019 12:00:00 AM EDT BOB ([facility]) atorvastatin 40 MG Oral Tablet 10/10/2019 12:00:00 AM ED [facility] ([facility]) Nystatin 100 UNT/MG Topical Powder 10/10/2019 12:00:00 AM [facility] ([facility]) lansoprazole 30 MG Delayed Release Oral Capsule 10/10/2019 12:00:00 AM [facility] BOB ([facility]) Bisoprolol Fumarate 5 MG Oral Tablet 10/10/2019 12:00:00 AM [facility] BOB ([facility]) Amoxicillin 875 MG / Clavulanate 125 MG Oral Tablet 10/10/19 20 12:00:00 AM [facility] BOB ([facility]) Fluticasone Propionate 50 MCG/ACT Nasal Suspension 10/10/2019 12 :00:00 AM [facility] ([facility]) Acetaminophen 325 MG / Oxycodone Hydrochloride 5 MG Or al Tablet [Percocet] 09/29/2019 12:00:00 AM [facility] BOB ([facility]) Cyclobenzaprine hydrochloride 10 MG Oral Tablet 09/01/2019 12:00:00 AM [facility] BOB ([facility]) Acetaminophen 325 MG / Oxycodone Hydrochloride 5 MG Or al Tablet [Percocet] 08/29/2019 12:00:00 AM [facility] BOB ([facility]) Acetaminophen 325 MG / Oxycodone Hydrochloride 5 MG Or al Tablet [Percocet] 08/01/2019 12:00:00 AM [facility] BOB ([facility]) [facility] Miconazole 7 2% Vaginal Cream 07/25/2019 12:00:00 AM [facility] 200 ACTUAT Albuterol 0.09 MG/ACTUAT Metered Dose Inhal er [Ventolin] 07/24/2019 12:00:00 AM [facility] BOB ([facility]) D3-50 1.25 MG ([id number] UT) Oral Capsule 07/24/2019 12:00:00 AM [facility] ([facility]) OneTouch Ultra Blue In Vitro Strip 07/24/2019 12:00:00 AM [facility] ([facility]) Metronidazole 500 MG Oral Tablet [Flagyl] 07/21/2019 12:00:00 AM ED [facility] ([facility]) Fluconazole 150 MG Oral Tablet [Diflucan] 07/21/2019 12:00:00 AM ED T [facility] ([facility]) Acetaminophen 325 MG / Oxycodone Hydrochloride 5 MG Or al Tablet [Percocet] 07/03/2019 12:00:00 AM EDT [facility] ([facility]) Nystatin 100 UNT/MG Topical Ointment 06/26/2019 12:00:00 AM EDT [facility] Zolpidem tartrate 5 MG Oral Tablet 06/17/2019 12:00:00 AM EDT [facility] ([facility]) Trazodone Hydrochloride 50 MG Oral Tablet 06/09/2019 12:00:00 AM ED T [facility] Cyclobenzaprine hydrochloride 10 MG Oral Tablet 06/09/2019 12:00:00 AM EDT [facility] ([facility]) Metformin hydrochloride 500 MG Oral Tablet 06/09/2019 12:00:00 AM E DT [facility] ([facility]) Bisoprolol Fumarate 5 MG Oral Tablet 06/09/2019 12:00:00 AM EDT [facility] ([facility]) Trazodone Hydrochloride 50 MG Oral Tablet 06/09/2019 12:00:00 AM ED T [facility] ([facility]) Pramipexole dihydrochloride 0.125 MG Oral Tablet 06/09/2019 12:00:0 0 AM EDT [facility] ([facility]) Losartan Potassium 25 MG Oral Tablet 06/09/2019 12:00:00 AM EDT [facility] ([facility]) POLYETHYLENE GLYCOL 3350 142 MG/ML Oral Solution 06/09/2019 12:00:0 0 AM EDT [facility] ([facility]) Metoclopramide 10 MG Oral Tablet 06/09/2019 12:00:00 AM EDT [facility] ([facility]) Acetaminophen 325 MG / Oxycodone Hydrochloride 5 MG Or al Tablet [Percocet] 06/03/2019 12:00:00 AM EST [facility] ([facility]) Cyclobenzaprine hydrochloride 10 MG Oral Tablet 05/27/2019 12:00:00 AM EST [facility] ([facility]) Acetaminophen 325 MG / Oxycodone Hydrochloride 5 MG Or al Tablet [Percocet] 05/06/2019 12:00:00 AM EST [facility] ([facility]) Acetaminophen 325 MG / Oxycodone Hydrochloride 5 MG Or al Tablet [Percocet] 04/07/2019 12:00:00 AM EST [facility] ([facility]) Metronidazole 500 MG Oral Tablet 03/31/2019 12:00:00 AM EST [facility] ([facility]) Fluconazole 150 MG Oral Tablet 03/28/2019 12:00:00 AM EST [facility] ([facility]) Acetaminophen 325 MG / Oxycodone Hydrochloride 5 MG Or al Tablet [Percocet] 03/07/2019 12:00:00 AM EST [facility] ([facility]) Cyclobenzaprine hydrochloride 10 MG Oral Tablet 02/20/2019 12:00:00 AM EST [facility] ([facility]) Prednisone 10 MG Oral Tablet 02/13/2019 12:00:00 AM EST [facility] ([facility]) Cefuroxime 500 MG Oral Tablet 02/13/2019 12:00:00 AM EST [facility] ([facility]) Acetaminophen 325 MG / Oxycodone Hydrochloride 5 MG Or al Tablet [Percocet] 02/07/2019 12:00:00 AM EST [facility] ([facility]) Fluticasone Propionate 50 MCG/ACT Nasal Suspension 01/30/2019 12 :00:00 AM EDT [facility] ([facility]) Prednisone 10 MG Oral Tablet 01/30/2019 12:00:00 AM EDT [facility] ([facility]) repaglinide 1 MG Oral Tablet [Prandin] 01/27/2019 12:00:00 AM EDT B[facility] ([facility]) 200 ACTUAT Albuterol 0.09 MG/ACTUAT Metered Dose Inhal er [Ventolin] 01/01/2019 12:00:00 AM EDT BOB ([facility]) glipiZIDE XL 10MG Oral Tablet Extended Release 24 Hour 12/03/2018 12:00:00 AM EDT BOB ([facility]) Metformin hydrochloride 500 MG Oral Tablet 12/03/2018 12:00:00 AM E DT BOB ([facility]) atorvastatin 40 MG Oral Tablet 12/03/2018 12:00:00 AM EDT B[facility] ([facility]) 24 HR venlafaxine 75 MG Extended Release Oral Capsule 12/03/2018 12:00:[facility] Levothy[facility] Sodium 0.05 MG Oral Tablet 12/03/2018 12:00:00 AM EDT BOB ([facility]) lansoprazole 30 MG Delayed Release Oral Capsule 12/03/2018 12:00:00 AM EDT B[facility] ([facility]) Zolpidem tartrate 5 MG Oral Tablet 11/12/2018 12:00:00 AM EDT [facility] ([facility]) Cyclobenzaprine hydrochloride 10 MG Oral Tablet 10/28/2018 12:00:00 AM EDT B[facility] ([facility]) D3-50 [id number] Oral Capsule 09/12/2018 12:00:00 AM EDT [facility] ([facility]) POLYETHYLENE GLYCOL 3350 142 MG/ML Oral Solution 08/14/2018 12:00:0 0 AM EDT BOB ([facility]) Bisoprolol Fumarate 5 MG Oral Tablet 08/14/2018 12:00:00 AM EDT [facility] ([facility]) Losartan Potassium 25 MG Oral Tablet 08/14/2018 12:00:00 AM EDT [facility] ([facility]) Metoclopramide 10 MG Oral Tablet 08/14/2018 12:00:00 AM EDT B[facility] ([facility]) OneTouch Ultra Blue In Vitro Strip 08/14/2018 12:00:00 AM EDT [facility] ([facility]) Pramipexole dihydrochloride 0.125 MG Oral Tablet 08/14/2018 12:00:0 0 AM EDT BOB ([facility]) FIBER PO 05/28/2018 12:00:00 AM EST [facility] Compressor/Nebulizer Miscellaneous 11/10/2015 12:00:00 AM EDT BOB ([facility]) Losartan Potassium 25 MG Oral Tablet [facility]
[2020-04-14] MEDS ORDERED: ALBUTEROL 90 MCG/ACT 8GM HFA INHALER INH PRN (23:15)
[2020-04-14] MEDS ORDERED: PRAMIPEXOLE (MIRAPEX) 0.125 MG TAB PO PRN (23:15)
[2020-04-14] MEDS ORDERED: DICYCLOMINE 10 MG CAP PO PRN (23:15)
[2020-04-14] MEDS ORDERED: FLUTICASONE PROP 0.05% NASAL SPRAY 16 GM (FLONASE) PRN (23:15)
[2020-04-14] MEDS ORDERED: MAALOX 30 ML SUSP *UDC PO PRN (23:15)
[2020-04-14] MEDS ORDERED: ACETAMINOPHEN TAB 650MG DOSE (2X325MG) PO PRN (23:15)
[2020-04-14] MEDS ORDERED: MOM 30ML SUSPENSION UDC PO PRN (23:15)
[2020-04-14] MEDS ORDERED: METOCLOPRAMIDE 10 MG TAB PO PRN (23:15)
--- NOTE | 2020-04-14 23:21 | HPEPDOC ---
General Date of Admission Apr 14, 2020 at 22:50 Date of Service: Apr 14, 2020 Attending Physician: BAYRON MARTINEZ MD Chief Complaint The patient is a 75-year-old female admitted with a reason for visit of Chf,L Bundle Branch Block. History of Present Illness History of present illness: 75-year-old female patient with past medical history of CHF, HTN, DM type II, COPD active smoker A. fib, LBBB who presented to the emergency department with on and off chest and back pain since 5 days she rates the pain as 6-7 now but can at times can range from 8-10, she was taking oxycodone/acetaminophen, Tylenol every 5 hours which helped her pain, she reports bending over makes pain worse, walking at times makes pain worse, taking rest sitting and laying reclining position makes it better. She also reports on and off shortness of breath associated with pain. She also reports having nausea and vomiting a week prior to this which got better with Reglan. Denies having any fever, reports having headache and was taking Tylenol as needed. She wasn't sure what was causing her pain but she reports her right lung was filling up with fluid and call Dr. Carter's office and was taking double the dose of furosemide every alternating day. Past medical history: Medical History 1. Chronic neck and low back pain. 2. Type 2 diabetes. 3. Hypertension. 4. Dyslipidemia. 5. Paroxysmal atrial fibrillation. 6. Chronic left bundle branch block. 7. Diverticulosis. 8. Abdominal hernia 9. Bladder prolapse Surgical History 1. Cholecystectomy. 2. Partial hysterectomy. 3. Appendectomy. 4. section. 5. Rectal prolapse and had surgery. Social history: She smokes one pack per day since age 26. Denies any alcohol use Denies illicit/recreational drug use Family History: Both parents are diabetic REVIEW OF SYSTEMS: Constitutional: Denies having fever, chills, night sweats, weight loss, reports headaches. Eyes: Denies blurry vision or double vision. ENT: Denies dysphagia, odynophagia, ear discharge. Cardiovascular: Reports having chest pain and back pain Respiratory: Reports shortness of breath and denies cough. Gastrointestinal (GI): Denies nausea or vomiting at present Genitourinary: Denies dysuria, hematuria. Musculoskeletal: Denies muscle aches and pains. Skin: Denies any rashes or ulcers. Hematology/Oncology: Denies any easy bleeding or bruising. All other review of systems is negative. PHYSICAL EXAMINATION: General: Patient is awake, alert, oriented times three, laying in bed , no apparent distress. Eyes: Conjunctiva clear, pupils equal round and reactive to light and accommodation. EOM full, Fundus: not visualized. ENT: Hearing Bilateral normal. No nasal deviation, oropharynx clear with no lesions/erythema. Cardiovascular: S1, S2, normal rhythm, no murmur. Respiratory: Chest is clear to auscultation bilaterally in the upper lobes crackles are heard on the bilateral lower lobes and mild wheezing also noted. Abdomen: Soft, bowel sounds positive, no bruits. Extremities: No clubbing or cyanosis. No edema, no tenderness. 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 Cranial nerves III-XII grossly intact. Pertinent Diagnostic tests: LABS: Assessment: A 75-year-old female patient with COPD, CHF, HTN, DM type II, A. fib, LBBB presented to the ED with chest pain and back pain as 5 days. Relieved with medication and worsened with walking and bending over. Associated with shortness of breath. Plan: Congestive heart disease: - Acute on chronic diastolic CHF - Asked to go 2019 EF 40-50% - Patient at home is at 40 mg by mouth per day. Had increased her dose to 80 mg per day alternating day on MWF[as per instructions by Dr. Carter] - Will start her on 40 mg IV twice a day. - She does have crackles in her right lung base. - Strict I's and O's Acute COPD exacerbation: - Patient does have mild wheezing noted in the lung exam. - Continue her home inhalation medication - Will start her on DuoNeb's - Will give her nicotine patch Atrial fibrillation: -Patient is on Xarelto home will continue. Diabetes mellitus: -Insulin sliding scale - Consistent carb diet. Restless leg syndrome: - Continue home medication Hypertension: - Continue home medication ASCVD: - Continue statin. Active smoker: - Give her nicotine patch daily DVT prophylaxis: - On Xarelto. Patient is DNR trial intubation, did not find paperwork with her she reports she filled out the paperwork. Her daughter is her healthcare proxy. Home Medications Scheduled Atorvastatin Calcium (Atorvastatin Calcium) 40 Mg Tablet, 40 MG PO QHS, (Reported) Bisoprolol Fumarate (Bisoprolol Fumarate) 5 Mg Tablet, 2.5 MG PO QHS, (Reported) Budesonide (Budesonide) 0.25 Mg/2 Ml Ampul.neb, 0.25 MG INH BID, (Reported) Clindamycin HCl (Clindamycin HCl) 300 Mg Capsule, 300 MG PO TID, (Reported) STARTED 04/09/20 Cyclobenzaprine HCl (Cyclobenzaprine HCl) 10 Mg Tablet, 10 MG PO BID, (Reported) Ergocalciferol (Vitamin D2) (Vitamin D2) 50,000 Units Cap, 50,000 UNITS PO QMONTH, (Reported) Estradiol (Estrace) 42.5 Gm Cream.appl, 0.25 GM VA QHS, (Reported) APPLY TO PERIURETHRAL AREA Furosemide (Furosemide) 20 Mg Tablet, 40 MG PO DAILY, (Reported) Glipizide (Glipizide ER) 10 Mg Tab.er.24, 10 MG PO BID, (Reported) Lansoprazole (Lansoprazole) 30 Mg Capsule.dr, 30 MG PO DAILY, (Reported) Levothyroxine Sodium (Synthroid) 50 Mcg Tablet, 50 MCG PO DAILY, (Reported) Losartan Potassium (Losartan Potassium) 50 Mg Tablet, 50 MG PO DAILY, (Reported) Melatonin (Melatonin) 5 Mg Tablet, 15 MG PO QHS, (Reported) Metformin HCl (Metformin HCl) 500 Mg Tab, 1,000 MG PO BID, (Reported) Montelukast Sodium (Montelukast Sodium) 10 Mg Tablet, 10 MG PO QHS, (Reported) Polyethylene Glycol 3350 (Miralax) 17 Gm Powd.pack, 17 GM PO DAILY, (Reported) MIXES WITH BENEFIBER Repaglinide (Repaglinide) 1 Mg Tablet, 0.5 MG PO WM, (Reported) Rivaroxaban (Xarelto) 20 Mg Tablet, 20 MG PO QPM, (Reported) TAKES AT 1700 Venlafaxine HCl (Venlafaxine HCl ER) 75 Mg Cap, 75 MG PO QHS, (Reported) Wheat Dextrin (Benefiber) 1 Each Powd.pack, 1 POW PO DAILY, (Reported) MIXES WITH MIRALAX Zolpidem Tartrate (Zolpidem Tartrate) 5 Mg Tablet, 5 MG PO QHS, (Reported) Scheduled PRN Albuterol Sulfate (Proair Hfa) 8.5 Gm Hfa.aer.ad, 2 PUFF INH QID PRN for SHORTNESS OF BREATH, (Reported) Dicyclomine HCl (Dicyclomine HCl) 10 Mg Capsule, 10 MG PO ACHS PRN for CRAMPS, (Reported) Fluticasone Propionate (Fluticasone Propionate) 16 Gm [place].susp, 2 SPRAYS NA DAILY PRN for NASAL CONGESTION, (Reported) Furosemide (Furosemide) 20 Mg Tablet, 40 MG PO DAILY PRN for EDEMA, (Reported) Metoclopramide HCl (Metoclopramide HCl) 10 Mg Tablet, 10 MG PO Q6H PRN for NAUSE A, (Reported) Oxycodone HCl/Acetaminophen (Oxycodone-Acetaminophen 5-325) 1 Each Tablet, 1 TAB PO QID PRN for PAIN, (Reported) Pramipexole Di-HCl (Mirapex) 0.125 Mg Tablet, 0.125 MG PO QHS PRN for RESTLESSNESS, (Reported) CAN TAKE A SECOND TABLET Silodosin (Rapaflo) 8 Mg Capsule, 8 MG PO DAILY PRN for URINARY PROBLEMS, (Reported) Allergies Coded Allergies: amitriptyline (Verified Allergy, Unknown, 03/19/19) amlodipine (Verified Allergy, Unknown, 03/19/19) doxycycline (Verified Allergy, Unknown, 03/19/19) fentanyl (Verified Allergy, Unknown, 03/19/19) gabapentin (Verified Allergy, Unknown, 03/19/19) hydrocortisone (Verified Allergy, Unknown, 03/19/19) lisinopril (Verified Allergy, Unknown, 03/19/19) nabumetone (Verified Allergy, Unknown, 03/19/19) neomycin (Verified Allergy, Unknown, 03/19/19) polymyxin B (Verified Allergy, Unknown, 03/19/19) propoxyphene (Verified Allergy, Unknown, 03/19/19) propylene glycol (Verified Allergy, Unknown, 03/19/19) starch (Verified Allergy, Unknown, 03/19/19) A-FIB/CHADSVASC A-FIB History Current/History of A-Fib/PAF?: Yes Current PO Anticoag Therapy: Yes Vital Signs Vital Signs Date Time Temp Pulse Resp B/P (MAP) Pulse Ox O2 Delivery O2 Flow Rate FiO2 04/14/20 21:30 94 87 04/14/20 21:01 189/97 (127) 04/14/20 19:00 20 Room Air 04/14/20 13:53 97.7 Laboratory Data Labs 24H Laboratory Tests 2 04/14/20 15:15: Immature Granulocyte % (Auto) 0.2, Neutrophils (%) (Auto) 72.4H, Lymphocytes (%) (Auto) 12.1L, Monocytes (%) (Auto) 12.4H, Eosinophils (%) (Auto) 2.4, Basophils (%) (Auto) 0.5, Neutrophils # (Auto) 6.2, Lymphocytes # (Auto) 1.0L, Monocytes # (Auto) 1.1H, Eosinophils # (Auto) 0.2, Basophils # (Auto) 0.0, Nucleated Red Blood Cells % (auto) 0.0, Erythrocyte Sedimentation Rate 27, Prothrombin Time 15.1H, Prothromb Time International Ratio 1.17, Activated Partial Thromboplast Time 31.1, Anion Gap 6L, Glomerular Filtration Rate > 60.0, Calcium Level 9.1, Total Bilirubin 0.4, Direct Bilirubin 0.1, Aspartate Amino Transf (AST/SGOT) 13, Alanine Aminotransferase (ALT/SGPT) 21, Alkaline Phosphatase 100, Total Creatine Kinase 52, Creatine Kinase MB 2.0, Creatine Kinase MB Relative Index 3.85, Troponin I 0.02, C-Reactive Protein, Quantitative 2.43H, PD-Yfy-D-Type Natriuretic Peptide 59190J, Total Protein 6.5, Albumin 3.3, Albumin/Globulin Ratio 1.0L, Lipase 96, Thyroid Stimulating Hormone (TSH) 2.140, Free Thyroxine 1.17, Coronavirus (COVID-19)(PCR) NEGATIVE, Influenza Type A (RT-PCR) NEGATIVE, Influenza Type B (RT-PCR) NEGATIVE, Respiratory Syncytial Virus (PCR) NEGATIVE CBC/BMP Laboratory Tests 04/14/20 15:15 Microbiology Microbiology 04/14/20 Blood Culture, Received Pending 04/14/20 Blood Culture, Received Pending Plan / VTE VTE Prophylaxis Ordered?: Yes Kristen Cortez MD Apr 14, 2020 23:21
[2020-04-15] VITALS (7 sets, daily range): BP systolic 118–160; BP diastolic 62–84; PULSE 80
--- NOTE | 2020-04-15 00:46 | ECGEPIP ---
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
[2020-04-15] MEDS: ATORVASTATIN 20 MG TAB PO SCH ×2 (00:58→20:12)
[2020-04-15] MEDS: PERCOCET 5MG/325MG TAB PO PRN ×4 (00:58→20:12)
[2020-04-15] MEDS: MONTELUKAST 10 MG TAB PO SCH ×2 (00:58→20:12)
[2020-04-15] MEDS ORDERED: GLUCOSE 4GM CHEW TABLET PO PRN (02:00)
[2020-04-15] MEDS ORDERED: NICOTINE 21MG/24HR 1 EA TRANSDERMAL TD PRN (02:00)
[2020-04-15] MEDS ORDERED: DEXTROSE 50% 50 ML SYRINGE IV PRN (02:00)
[2020-04-15] MEDS ORDERED: GLUCAGON INJ 1MG VIAL SC PRN (02:00)
[2020-04-15] MEDS: IPRATROPIUM 0.5MG/ALBUTEROL 2.5MG INH SOL UD 3ML (DUONEB) NEB SCH ×4 (03:58→21:00)
[2020-04-15] MEDS: BUDESONIDE 0.25 MG/2 ML INHALATION SUSPENSION INH SCH ×3 (03:58→21:00)
[2020-04-15 04:00] LABS: HEMATOCRIT 34.7 % (36.0-47.0); HEMOGLOBIN 10.2 g/dl (12.0-15.5); MEAN CORPUSCULAR HEMOGLOBIN 24.3 pg (27.0-33.0); MEAN CORPUSCULAR HGB CONC 29.4 g/dl (32.0-36.5); MEAN CORPUSCULAR VOLUME 82.8 fl (80.0-96.0); PLATELET COUNT, AUTOMATED 261 10^3/uL (150-450); RED BLOOD COUNT 4.19 10^6/uL (4.00-5.40)
[2020-04-15 04:34] LABS: BLOOD UREA NITROGEN 13 MG/DL (7-18); CALCIUM LEVEL 8.9 MG/DL (8.8-10.2); CARBON DIOXIDE LEVEL 33 MEQ/L (21-32); CHLORIDE LEVEL 100 MEQ/L (98-107); CREATININE FOR GFR 0.94 MG/DL (0.55-1.30); GLOMERULAR FILTRATION RATE > 60.0 (>39); GLUCOSE, FASTING 226 MG/DL (70-100); MAGNESIUM LEVEL 1.3 MG/DL (1.8-2.4); POTASSIUM SERUM 3.4 MEQ/L (3.5-5.1); SODIUM LEVEL 137 MEQ/L (136-145)
[2020-04-15] MEDS: LEVOTHYROXINE 50MCG TABLET (0.05MG) PO SCH (05:29)
[2020-04-15] MEDS ORDERED: MAGNESIUM OXIDE 400 MG TAB (MAG-OX) PO ONE (06:30)
[2020-04-15] MEDS ORDERED: POTASSIUM CHLORIDE 10 MEQ SR TABLET PO ONE (06:30)
[2020-04-15] MEDS: MIRALAX *UNIT DOSE* 17GM PACKET PO SCH (08:42)
[2020-04-15] MEDS: FUROSEMIDE 40MG/4ML VIAL (J1940) IV SCH ×2 (08:43→16:54)
[2020-04-15] MEDS: DOCUSATE SODIUM 100MG CAPSULE PO SCH ×2 (08:44→20:11)
[2020-04-15] MEDS: LOSARTAN 50MG TABLET PO SCH (08:44)
[2020-04-15] MEDS: HumaLOG INSULIN (NovoLOG) PER UNIT SC SCH ×3 (08:45→17:14)
[2020-04-15] MEDS: LEVEMIR (INSULIN DETEMIR) 1 UNITS/0.01ML SC SCH (09:00)
[2020-04-15] MEDS ORDERED: MAG SULF 1GM/100ML (MAG RUN) 1 GM in IV 1 EA IV ONE (12:00)
--- NOTE | 2020-04-15 14:15 | IPNPDOC ---
Text Note Date of Service The patient was seen on 04/15/20. NOTE Subjective: Patient complains of ongoing chest pain and back off and on for the past 5 days and starts as soon as she eats anything. She feels like food is sticking in her neck with onset of chest and back pain. It has been so bad in the past 2 days that she has not been able to eat much. Physical Exam: Vitals: As below General: Patient is awake, alert, oriented times three, laying in bed , no apparent distress. Eyes: Conjunctiva clear, pupils equal round and reactive to light and accommodation. EOM full, Fundus: not visualized. ENT: Hearing Bilateral normal. No nasal deviation, oropharynx clear with no lesions/erythema. Cardiovascular: S1, S2, normal rhythm, no murmur. Respiratory: Chest is clear to auscultation bilaterally, crackles at the bases. Abdomen: Soft, bowel sounds positive, no bruits. Extremities: No clubbing or cyanosis. No edema, no tenderness. 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 Cranial nerves III-XII grossly intact. Labs and radiology : reviewed. Assessment: A 75-year-old female patient with COPD, CHF, HTN, DM type II, A. fib, LBBB presented to the ED with chest pain and back pain as 5 days. Relieved with medication and worsened with walking and bending over. Associated with shortness of breath. Acute on chronic systolic and diastolic CHF Echo 2019 EF 40-50% continue IV lasix Monitor intake and output. Dysphagia reports has hiatal hernia will get swallow eval I see Patient was started on clindamycin on 04/09/20 i am wondering if this caused some gastritis and increased reflux leading to her dysphagia. Hypomagnesemia replaced. PAD s/p right leg stenting and illiac artery stenting due for a groin US will get it done. COPD/ allergies continue budesonide, duonebs, singulair Atrial fibrillation: rate controlled Patient is on Xarelto home will continue. Diabetes mellitus: On multiple oral meds which are held. Insulin sliding scale, Levemir. Consistent carb diet. Restless leg syndrome: pramipexole Hypertension: Losartan, bisoprolol HLD statin ASCVD: statin, betablocker Active smoker: Give her nicotine patch daily Hypothyroid synthroid Insomnia/anxiety venlafaxine, ambien Chronic back pain and spasms, chronic abdominal pain will restart flexeril, continue her opiates, dicyclomine prn. Right first toe chronic ulcer with some redness does not look infected will hold clindamycin. VS,Fishbone, I+O VS, Fishbone, I+O Laboratory Tests 04/14/20 15:15 04/15/20 03:55 Vital Signs Date Time Temp Pulse Resp B/P (MAP) Pulse Ox O2 Delivery O2 Flow Rate FiO2 04/15/20 12:00 97.1 69 21 151/64 (93) 93 Room Air 04/15/20 08:00 2.0 I&O- Last 24 Hours up to 6 AM 04/15/20 06:00 Intake Total 270 ml Output Total 1350 ml Balance -1080 ml MACARIO ROSALES MD Apr 15, 2020 13:36
[2020-04-15] MEDS ORDERED: PANTOPRAZOLE 40MG VIAL (C9113 PER 1) IV SCH (15:00)
--- NOTE | 2020-04-15 16:12 | REP ---
INDICATION: stent placement. COMPARISON: 08/19/2019. TECHNIQUE: Real time shahid scale and Duplex Doppler evaluation of the bilateral lower extremity arterial vasculature using linear high frequency transducer. FINDINGS: Shahid scale and duplex doppler images demonstrate bilateral iliac stents, which are patent. Scattered moderate plaquing is noted diffusely bilaterally. There are areas of severe plaquing noted in the right lower extremity. Diffuse biphasic waveforms are seen bilaterally. Right superficial femoral artery demonstrates multifocal stenosis. There is mild stenosis of the mid left SFA. Peak systolic velocities (cm/sec) Common iliac artery right 140; left 118 External iliac artery: Right 161; left 200 Common femoral artery: Right 173; Left 171 Profunda femoris: Right 195; Left 146 SFA (proximal): Right 274; Left 139 SFA (mid): Right 256; Left 198 SFA (distal): Right 105; Left 101 Popliteal artery: Right 71; Left 94 JEAN PAUL (prox.): Right 67; Left 96 Tibioperoneal trunk: Right 73; Left 70 SPICE MIXER (prox.): Right 63; Left 84 SPICE MIXER (distal): Right 64; Left 51 JEAN PAUL (distal): Right 47; Left 63 IMPRESSION: Moderate diffuse bilateral plaquing with moderate to severe plaquing right lower extremity. Patent iliac stents. Multifocal stenoses right superficial femoral artery. Mild stenosis mid left SFA. <Electronically signed by Aguila Shahid > 04/15/20 [id number]
[2020-04-15] MEDS ORDERED: RIVAROXABAN 20 MG TAB (XARELTO) PO SCH (18:00)
--- NOTE | 2020-04-15 19:21 | ECGEPIP ---
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
[2020-04-15] MEDS: CYCLOBENZAPRINE 10MG TABLET PO SCH (20:11)
[2020-04-15] MEDS ORDERED: HumaLOG INSULIN (NovoLOG) PER UNIT SC SCH (21:00)
[2020-04-15] MEDS ORDERED: zolPIDEM TARTRATE 5 MG TAB PO SCH (21:00)
[2020-04-15] MEDS ORDERED: BISOPROLOL FUM 2.5 MG PER 1/2TAB PO SCH (21:00)
[2020-04-15] MEDS ORDERED: VENLAFAXINE **XR** 75MG CAPSULE PO SCH (21:00)
[2020-04-16] VITALS: BP 141/65
[2020-04-16] MEDS: IPRATROPIUM 0.5MG/ALBUTEROL 2.5MG INH SOL UD 3ML (DUONEB) NEB SCH ×3 (02:00→14:00)
[2020-04-16 04:00] VITALS: BP 150/86
[2020-04-16] MEDS: LEVOTHYROXINE 50MCG TABLET (0.05MG) PO SCH (05:48)
[2020-04-16] MEDS: PERCOCET 5MG/325MG TAB PO PRN (05:48)
[2020-04-16 08:00] VITALS: BP 142/90
[2020-04-16] MEDS: BUDESONIDE 0.25 MG/2 ML INHALATION SUSPENSION INH SCH (08:43)
[2020-04-16] MEDS: CYCLOBENZAPRINE 10MG TABLET PO SCH (09:11)
[2020-04-16] MEDS: HumaLOG INSULIN (NovoLOG) PER UNIT SC SCH ×2 (09:11→12:09)
[2020-04-16] MEDS: FUROSEMIDE 40MG/4ML VIAL (J1940) IV SCH (09:12)
[2020-04-16] MEDS: DOCUSATE SODIUM 100MG CAPSULE PO SCH (09:12)
[2020-04-16] MEDS: MIRALAX *UNIT DOSE* 17GM PACKET PO SCH (09:15)
[2020-04-16 09:16] VITALS: BP 142/90
[2020-04-16] MEDS: LOSARTAN 50MG TABLET PO SCH (09:16)
[2020-04-16] MEDS: LEVEMIR (INSULIN DETEMIR) 1 UNITS/0.01ML SC SCH (09:16)
--- NOTE | 2020-04-16 20:38 | DS.PDOC ---
Discharge Summary General Date of Admission Apr 14, 2020 at 22:50 Date of Discharge 04/16/20 Discharge Summary PROCEDURES PERFORMED DURING STAY: [None]. DISCHARGE DIAGNOSES: Acute on Chronic systolic and diastolic CHF Acute on Chronic dysphagia Atypical chest pain due to probably esophageal dysmotility and esophagial spasm with GERD Hiatal hernia/ GERD Hypomagnesemia Right first toe ulcer SECONDARY DIAGNOSIS: Chronic Afib/ aflutter PAD s/p leg stents COPD/Allergies Chronic neck and low back pain. Type 2 diabetes. Hypertension. Dyslipidemia. Chronic left bundle branch block. Diverticulosis. Anxiety/ Insomnia RLS Hypothyroid ASVD Smoker COMPLICATIONS/CHIEF COMPLAINT: Chf,L Bundle Branch Block. HOSPITAL COURSE: Labs and radiology : reviewed. Assessment: A 75-year-old female patient with COPD, CHF, HTN, DM type II, A. fib, LBBB presented to the ED with chest pain and back pain as 5 days. Relieved with medication and worsened with walking and bending over. Associated with shortness of breath. Acute on chronic systolic and diastolic CHF Echo 2018 EF 40-50% continue IV lasix Monitor intake and output. Dysphagia reports has hiatal hernia swallow eval was good I see Patient was started on clindamycin on 04/09/20 i am wondering if this caused some gastritis and increased reflux leading to her dysphagia. She has had several EGDs over the years for dysphagia and last one was in [address] Monahan Will refer back to Dr Monahan. Hypomagnesemia replaced. PAD s/p right leg stenting and illiac artery stenting Bilateral lower ex arterial US shows Moderate diffuse bilateral plaquing with moderate to severe plaquing right lower extremity. Patent iliac stents. Multifocal stenoses right superficial femoral artery. Mild stenosis mid left SFA. Follow up Dr Medina. COPD/ allergies continue budesonide, duonebs, singulair Atrial fibrillation: rate controlled Patient is on Xarelto home will continue. Diabetes mellitus: On multiple oral meds which are held. Insulin sliding scale, Levemir. Consistent carb diet. Restless leg syndrome: pramipexole Hypertension: Losartan, bisoprolol HLD statin ASCVD: statin, betablocker Active smoker: Give her nicotine patch daily Hypothyroid synthroid Insomnia/anxiety venlafaxine, ambien Chronic back pain and spasms, chronic abdominal pain will restart flexeril, continue her opiates, dicyclomine prn. Right first toe chronic ulcer with some redness does not look infected will hold clindamycin. DISCHARGE MEDICATIONS: Please see below. ALLERGIES: Please see below. PHYSICAL EXAMINATION ON DISCHARGE: VITAL SIGNS: Please see below. General: Patient is awake, alert, oriented times three, laying in bed , no apparent distress. Eyes: Conjunctiva clear, pupils equal round and reactive to light and accommodation. EOM full, Fundus: not visualized. ENT: Hearing Bilateral normal. No nasal deviation, oropharynx clear with no lesions/erythema. Cardiovascular: S1, S2, normal rhythm, no murmur. Respiratory: Chest is clear to auscultation bilaterally, crackles at the bases. Abdomen: Soft, bowel sounds positive, no bruits. Extremities: No clubbing or cyanosis. No edema, no tenderness. Central nervous system (CYTOLOGY TECHNOLOGIST): Awake, alert and fully oriented. Cranial nerves III-XII grossly intact. LABORATORY DATA: Please see below. ACTIVITY: [As tolerated]. DIET: Mechanical soft diet. DISPOSITION: Home, Self-Care. DISCHARGE INSTRUCTIONS: PMD in [address] Monahan in 2 weeks DISCHARGE CONDITION: [Stable]. TIME SPENT ON DISCHARGE: 35 minutes. Vital Signs/I&Os Vital Signs Date Time Temp Pulse Resp B/P (MAP) Pulse Ox O2 Delivery O2 Flow Rate FiO2 04/16/20 09:16 142/90 04/16/20 08:00 97.1 108 18 96 Room Air 04/15/20 08:00 2.0 I&O- Last 24 Hours up to 6 AM 04/16/20 06:59 Intake Total 780 ml Output Total 1150 ml Balance -370 ml Laboratory Data Labs 24H Laboratory Tests 2 04/16/20 11:39: Bedside Glucose (Misc Panel) 197H FSBS Laboratory Tests Test 04/16/20 11:39 Range/Units Bedside Glucose (Misc Panel) 197 83-110 MG/DL Microbiology Microbiology 04/14/20 Blood Culture - Preliminary, Resulted No Growth after 48 hours. All Specime... 04/14/20 Blood Culture - Preliminary, Resulted No Growth after 48 hours. All Specime... Discharge Medications Scheduled Atorvastatin Calcium (Atorvastatin Calcium) 40 Mg Tablet, 40 MG PO QHS, (Rep orted) Bisoprolol Fumarate (Bisoprolol Fumarate) 5 Mg Tablet, 2.5 MG PO QHS, (Reported) Budesonide (Budesonide) 0.25 Mg/2 Ml Ampul.neb, 0.25 MG INH BID, (Reported) Cyclobenzaprine HCl (Cyclobenzaprine HCl) 10 Mg Tablet, 10 MG PO BID, (Reported) Ergocalciferol (Vitamin D2) (Vitamin D2) 50,000 Units Cap, 50,000 UNITS PO QMONTH, (Reported) Estradiol (Estrace) 42.5 Gm Cream.appl, 0.25 GM VA QHS, (Reported) APPLY TO PERIURETHRAL AREA Furosemide (Furosemide) 20 Mg Tablet, 40 MG PO DAILY, (Reported) Glipizide (Glipizide ER) 10 Mg Tab.er.24, 10 MG PO BID, (Reported) Lansoprazole (Lansoprazole) 30 Mg Capsule.dr, 30 MG PO DAILY, (Reported) Levothyroxine Sodium (Synthroid) 50 Mcg Tablet, 50 MCG PO DAILY, (Reported) Losartan Potassium (Losartan Potassium) 50 Mg Tablet, 50 MG PO DAILY, (Reported) Melatonin (Melatonin) 5 Mg Tablet, 15 MG PO QHS, (Reported) Metformin HCl (Metformin HCl) 500 Mg Tab, 1,000 MG PO BID, (Reported) Montelukast Sodium (Montelukast Sodium) 10 Mg Tablet, 10 MG PO QHS, (Reported) Polyethylene Glycol 3350 (Miralax) 17 Gm Powd.pack, 17 GM PO DAILY, (Reported) MIXES WITH BENEFIBER Repaglinide (Repaglinide) 1 Mg Tablet, 0.5 MG PO WM, (Reported) Rivaroxaban (Xarelto) 20 Mg Tablet, 20 MG PO QPM, (Reported) TAKES AT 1700 Venlafaxine HCl (Venlafaxine HCl ER) 75 Mg Cap, 75 MG PO QHS, (Reported) Wheat Dextrin (Benefiber) 1 Each Powd.pack, 1 POW PO DAILY, (Reported) MIXES WITH MIRALAX Zolpidem Tartrate (Zolpidem Tartrate) 5 Mg Tablet, 5 MG PO QHS, (Reported) Scheduled PRN Albuterol Sulfate (Proair Hfa) 8.5 Gm Hfa.aer.ad, 2 PUFF INH QID PRN for SHORTNESS OF BREATH, (Reported) Dicyclomine HCl (Dicyclomine HCl) 10 Mg Capsule, 10 MG PO ACHS PRN for CRAMPS, (Reported) Fluticasone Propionate (Fluticasone Propionate) 16 Gm [place].susp, 2 SPRAYS NA DAILY PRN for NASAL CONGESTION, (Reported) Furosemide (Furosemide) 20 Mg Tablet, 40 MG PO DAILY PRN for EDEMA, (Reported) Metoclopramide HCl (Metoclopramide HCl) 10 Mg Tablet, 10 MG PO Q6H PRN for NAUSEA, (Reported) Oxycodone HCl/Acetaminophen (Oxycodone-Acetaminophen 5-325) 1 Each Tablet, 1 TAB PO QID PRN for PAIN, (Reported) Pramipexole Di-HCl (Mirapex) 0.125 Mg Tablet, 0.125 MG PO QHS PRN for RESTLESSNESS, (Reported) CAN TAKE A SECOND TABLET Silodosin (Rapaflo) 8 Mg Capsule, 8 MG PO DAILY PRN for URINARY PROBLEMS, (Reported) Allergies Coded Allergies: amitriptyline (Verified Allergy, Unknown, 03/19/19) amlodipine (Verified Allergy, Unknown, 03/19/19) doxycycline (Verified Allergy, Unknown, 03/19/19) fentanyl (Verified Allergy, Unknown, 03/19/19) gabapentin (Verified Allergy, Unknown, 03/19/19) hydrocortisone (Verified Allergy, Unknown, 03/19/19) lisinopril (Verified Allergy, Unknown, 03/19/19) nabumetone (Verified Allergy, Unknown, 03/19/19) neomycin (Verified Allergy, Unknown, 03/19/19) polymyxin B (Verified Allergy, Unknown, 03/19/19) propoxyphene (Verified Allergy, Unknown, 03/19/19) propylene glycol (Verified Allergy, Unknown, 03/19/19) starch (Verified Allergy, Unknown, 03/19/19) MACARIO ROSALES MD Apr 16, 2020 20:38
== END 2020-04-16 14:00 | disposition home or self-care (01) | DRG 292 ==
LOC: M ED 13:53 → M ED INP 22:50 → M PCU 04-15 01:21
PROVIDERS: ADMIT Family Medicine; ATTEND Internal Medicine Nephrology
DX: I11.0 Hypertensive heart disease with heart failure (principal); J44.1 Chronic obstructive pulmonary disease with (acute) exacerbation; L97.518 Non-pressure chronic ulcer of other part of right foot with other specified severity; I48.20 Chronic atrial fibrillation, unspecified; I50.33 Acute on chronic diastolic (congestive) heart failure; E11.51 Type 2 diabetes mellitus with diabetic peripheral angiopathy without gangrene; F17.200 Nicotine dependence, unspecified, uncomplicated; I44.7 Left bundle-branch block, unspecified; M54.2 Cervicalgia; E83.42 Hypomagnesemia; Z66 Do not resuscitate; G47.00 Insomnia, unspecified; M54.5 Low back pain; K22.4 Dyskinesia of esophagus; R13.10 Dysphagia, unspecified; K21.9 Gastro-esophageal reflux disease without esophagitis; F41.9 Anxiety disorder, unspecified; E11.621 Type 2 diabetes mellitus with foot ulcer; G25.81 Restless legs syndrome; Z79.01 Long term (current) use of anticoagulants; Z79.84 Long term (current) use of oral hypoglycemic drugs; Z79.899 Other long term (current) drug therapy; Z88.1 Allergy status to other antibiotic agents; Z88.8 Allergy status to other drugs, medicaments and biological substances; Z91.048 Other nonmedicinal substance allergy status; Z20.822 Contact with and (suspected) exposure to COVID-19; Z95.820 Peripheral vascular angioplasty status with implants and grafts

== ENCOUNTER → 2020-06-02 | Outpatient (CLI) | payer MEDICARE, BC ==
[~2020-06-02] MED LIST changes: +BENE1POW5 PO; +CLIN300C6 PO; +DICY20TA3 PO; +ESTR1CRE VA; +FLUTISP; +MELA10TA6 PO; +MELA5TAB37 PO; +MIRA0.12 PO; +MIRA1POW3 PO; +MONT10TA10 PO; +SYNT50TA PO; +VITA50005 PO
== END ==
LOC: M LABSMTC 12:03
PROVIDERS: ATTEND Anesthesiology
DX: Z01.812 Encounter for preprocedural laboratory examination (principal); Z20.822 Contact with and (suspected) exposure to COVID-19

== ENCOUNTER 2020-06-07 08:06 | Day surgery (SDC) | payer MEDICARE, BC ==
[~2020-06-07] VITALS: Ht 162.6 cm; Wt 60.8 kg
[~2020-06-07 08:06] MED LIST changes: +NS 1,000 ML IV ONE; +fentaNYL 100 MCG/2 ML INJECTION (J3010) As Ordered ONE
[2020-06-07] MEDS ORDERED: propofoL 200 MG/20 ML VIAL As Ordered ONE (09:26)
[2020-06-07] MEDS ORDERED: LIDOCAINE 2% 100MG/5ML SDV (FOR ANES.) As Ordered ONE (09:26)
--- NOTE | 2020-06-07 09:43 | ROOR ---
Patient Name: Flori Marie Procedure Date: 06/07/2020 9:27 AM Date of : 1945 Age: 75 Room: [facility] Gender: Female Note Status: Finalized Procedure: Upper Endoscopy + Biopsies Indications: Heartburn, Failure to respond to medical treatment, Exclusion of Landers's esophagus Providers: Eddy Monahan MD Referring MD: Cullen Blackwell DO Requesting Provider: Medicines: Monitored Anesthesia Care Complications: No immediate complications. Procedure: Pre-Anesthesia Assessment: - The heart rate, respiratory rate, oxygen saturations, blood pressure, adequacy of pulmonary ventilation, and response to care were monitored throughout the procedure. The Endoscope was introduced through the mouth, and advanced to the second part of duodenum. The upper GI endoscopy was accomplished without difficulty. The patient tolerated the procedure well. Findings: The Z-line was regular and was found 40 cm from the incisors. Multiple biopsies were obtained with cold forceps for evaluation to rule out Landers's Esophagus randomly at the gastroesophageal junction. Mucosal changes including ringed esophagus were found in the lower third of the esophagus. Biopsies were taken with a cold forceps for histology. No other significant abnormalities were identified in a careful examination of the stomach. The exam of the duodenum was otherwise normal. Impression: - Z-line regular, 40 cm from the incisors. - Esophageal mucosal changes suggestive of eosinophilic esophagitis. Biopsied. - Multiple biopsies were obtained at the gastroesophageal junction. - The examination was otherwise normal. Recommendation: - Await pathology results. - Discharge patient to home. - Follow an antireflux regimen. - Continue present medications. - Await pathology results. - Telephone GI clinic for pathology results in 1 week. - Return to referring physician. - The findings and recommendations were discussed with the patient. Procedure Code(s): --- Professional --- 85640, Esophagogastroduodenoscopy, flexible, transoral; with biopsy, single or multiple Diagnosis Code(s): --- Professional --- K22.8, Other specified diseases of esophagus R12, Heartburn CPT copyright 2019 [employer]. All rights reserved. The codes documented in this report are preliminary and upon baster hand review may be revised to meet current compliance requirements. Eddy Monahan MD Eddy Monahan MD 06/07/2020 9:42:58 AM Electronically signed by Eddy Monahan MD Number of Addenda: 0 Note Initiated On: 06/07/2020 9:27 AM Estimated Blood Loss: Estimated blood loss: none.
[2020-06-07 10:10] VITALS: BP 125/68
== END 2020-06-07 10:15 | disposition home or self-care (01) ==
LOC: M OPP 08:06
PROVIDERS: ATTEND Internal Medicine Gastroenterology
DX: R12 Heartburn (principal); D13.0 Benign neoplasm of esophagus; K22.8 Other specified diseases of esophagus; I48.91 Unspecified atrial fibrillation; I10 Essential (primary) hypertension; E78.5 Hyperlipidemia, unspecified; E11.9 Type 2 diabetes mellitus without complications; E03.9 Hypothyroidism, unspecified; K76.0 Fatty (change of) liver, not elsewhere classified; K31.84 Gastroparesis; K21.9 Gastro-esophageal reflux disease without esophagitis; M19.90 Unspecified osteoarthritis, unspecified site; F41.9 Anxiety disorder, unspecified; F32.9 Major depressive disorder, single episode, unspecified; J44.9 Chronic obstructive pulmonary disease, unspecified; F17.210 Nicotine dependence, cigarettes, uncomplicated; Z88.1 Allergy status to other antibiotic agents; Z88.5 Allergy status to narcotic agent; Z88.8 Allergy status to other drugs, medicaments and biological substances; Z91.018 Allergy to other foods

== ENCOUNTER 2020-06-10 17:33 | Emergency (ER) | payer MEDICARE, BC ==
[~2020-06-10] VITALS: Ht 162.6 cm; Wt 58.3 kg
[~2020-06-10 17:33] MED LIST changes: -MAGN400T2 PO
[2020-06-10] MEDS ORDERED: MAG SULF 1GM/100ML (MAG RUN) 1 GM in IV 1 EA IV ONE (18:20)
--- NOTE | 2020-06-10 18:46 | REP ---
INDICATION: shortness of breath COMPARISON: 04/14/2020 TECHNIQUE: Portable AP view of the chest FINDINGS: Stable cardiomegaly. Lung montgomery demonstrate chronic stable changes. No focal consolidation, effusion, or pneumothorax. Skeletal structures intact. Loop recorder noted. IMPRESSION: Stable cardiomegaly and chronic changes. No focal consolidation or effusion. <Electronically signed by Jovon Sanchez > 06/10/20 [id number]
[2020-06-10 19:00] LABS: CK-MB VALUE MASS 2.3 NG/ML (<3.6); MB/CK RELATIVE INDEX 4.69 (< OR =4); TROPONIN I 0.02 NG/ML (< 0.10)
[2020-06-10] MEDS ORDERED: FUROSEMIDE 40MG/4ML VIAL (J1940) IV ONE (19:20)
[2020-06-10] MEDS ORDERED: KETOROLAC 30 MG/ML 1ML VIAL IV ONE (20:25)
[2020-06-10] MEDS ORDERED: MAGN400T2 PO (21:51)
[2020-06-10] MEDS ORDERED: FERR325T3 PO (21:56)
[2020-06-10 22:22] VITALS: BP 155/74
--- NOTE | 2020-06-11 18:42 | ECGEPIP ---
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
== END 2020-06-10 22:20 | disposition home or self-care (01) ==
LOC: M ED 17:33
DX: I50.9 Heart failure, unspecified (principal); E83.42 Hypomagnesemia; D50.9 Iron deficiency anemia, unspecified; E11.9 Type 2 diabetes mellitus without complications; I10 Essential (primary) hypertension; I48.91 Unspecified atrial fibrillation; E78.5 Hyperlipidemia, unspecified; Z79.899 Other long term (current) drug therapy; Z79.84 Long term (current) use of oral hypoglycemic drugs; Z88.1 Allergy status to other antibiotic agents; Z88.8 Allergy status to other drugs, medicaments and biological substances; Z91.018 Allergy to other foods; F17.210 Nicotine dependence, cigarettes, uncomplicated
CPT/HCPCS: 36415; 71045; 80053; 81001; 82306; 82550; 82553; 82607; 82728; 82746; 83550; 83735; 83880; 84100; 84439; 84443; 84484; 85025; 93005; 96361; 96374; 96375; 99285; J1885; J1940; J3475

== ENCOUNTER → 2020-06-10 | Outpatient (REF) | payer MEDICARE, BC ==
[~2020-06-10] MED LIST changes: +MAGN400T2 PO; -NS 1,000 ML IV ONE; -fentaNYL 100 MCG/2 ML INJECTION (J3010) As Ordered ONE
[2020-06-10 12:31] LABS: BASO # 0.1 10^3/uL (0.0-0.2); BASO % 0.4 % (0.0-1.0); EOS % 0.3 % (0.0-3.0); HEMATOCRIT 36.1 % (36.0-47.0); HEMOGLOBIN 10.8 g/dl (12.0-15.5); LYMPH # 1.7 10^3/uL (1.5-5.0); LYMPH % 12.6 % (24.0-44.0); MEAN CORPUSCULAR HEMOGLOBIN 24.3 pg (27.0-33.0); MEAN CORPUSCULAR HGB CONC 29.9 g/dl (32.0-36.5); MEAN CORPUSCULAR VOLUME 81.3 fl (80.0-96.0); MONO # 1.2 10^3/uL (0.0-0.8); MONO % 9.1 % (2.0-8.0); NEUTROPHILS # 10.5 10^3/uL (1.5-8.5); NEUTROPHILS % 77.1 % (36.0-66.0); PLATELET COUNT, AUTOMATED 321 10^3/uL (150-450); RED BLOOD COUNT 4.44 10^6/uL (4.00-5.40); WHITE BLOOD COUNT 13.6 10^3/uL (4.0-10.0)
[2020-06-10 13:04] LABS: ALBUMIN 3.8 GM/DL (3.2-5.2); ALT/SGPT 14 U/L (12-78); BILIRUBIN,TOTAL 0.4 MG/DL (0.2-1.0); BLOOD UREA NITROGEN 15 MG/DL (7-18); CALCIUM LEVEL 9.3 MG/DL (8.8-10.2); CARBON DIOXIDE LEVEL 32 MEQ/L (21-32); CHLORIDE LEVEL 101 MEQ/L (98-107); CREATININE FOR GFR 0.88 MG/DL (0.55-1.30); FREE T4 1.04 NG/DL (0.76-1.46); GLOMERULAR FILTRATION RATE > 60.0 (>39); GLUCOSE, FASTING 145 MG/DL (70-100); IRON (FE) 27 UG/DL (50-170); MAGNESIUM LEVEL 1.3 MG/DL (1.8-2.4); NT-PRO BNP 13005 PG/ML (<125); PERCENT SATURATION 5.9 % (13.2-45.0); PHOSPHORUS LEVEL 3.8 MG/DL (2.5-4.9); POTASSIUM SERUM 4.5 MEQ/L (3.5-5.1); SODIUM LEVEL 136 MEQ/L (136-145); TOTAL 25(OH) VITAMIN D 48.6 NG/ML (30.0-100.0); TOTAL IRON BINDING CAPACITY 461 UG/DL (250-450); TOTAL PROTEIN 7.2 GM/DL (6.4-8.2)
[2020-06-10 13:10] LABS: FOLATE > 24.0 NG/ML; VITAMIN B12 LEVEL 299 PG/ML
== END ==
LOC: M LABDRWAD 12:16
PROVIDERS: ATTEND Nurse Practitioner Family
DX: R53.83 Other fatigue (principal)

== ENCOUNTER → 2020-06-25 | Outpatient (REF) | payer MEDICARE, BC ==
[~2020-06-25] MED LIST changes: +MAGN400T2 PO
[2020-06-25 19:02] LABS: HEMATOCRIT 35.9 % (36.0-47.0); HEMOGLOBIN 10.3 g/dl (12.0-15.5); MEAN CORPUSCULAR HEMOGLOBIN 24.1 pg (27.0-33.0); MEAN CORPUSCULAR HGB CONC 28.7 g/dl (32.0-36.5); MEAN CORPUSCULAR VOLUME 84.1 fl (80.0-96.0); PLATELET COUNT, AUTOMATED 293 10^3/uL (150-450); RED BLOOD COUNT 4.27 10^6/uL (4.00-5.40); WHITE BLOOD COUNT 7.6 10^3/uL (4.0-10.0)
[2020-06-25 19:21] LABS: BLOOD UREA NITROGEN 18 MG/DL (7-18); CALCIUM LEVEL 8.8 MG/DL (8.8-10.2); CARBON DIOXIDE LEVEL 33 MEQ/L (21-32); CHLORIDE LEVEL 99 MEQ/L (98-107); CREATININE FOR GFR 0.94 MG/DL (0.55-1.30); GLOMERULAR FILTRATION RATE > 60.0 (>39); GLUCOSE, FASTING 88 MG/DL (70-100); MAGNESIUM LEVEL 1.9 MG/DL (1.8-2.4); NT-PRO BNP 8318 PG/ML (<125); POTASSIUM SERUM 4.3 MEQ/L (3.5-5.1); SODIUM LEVEL 136 MEQ/L (136-145)
== END ==
LOC: M LABDRWAD 18:19
PROVIDERS: ATTEND Physician Assistant
DX: E83.42 Hypomagnesemia (principal); I42.9 Cardiomyopathy, unspecified; I25.119 Atherosclerotic heart disease of native coronary artery with unspecified angina pectoris; D50.9 Iron deficiency anemia, unspecified

== ENCOUNTER → 2020-07-14 | Outpatient (CLI) | payer MEDICARE, BC ==
--- NOTE | 2020-07-14 15:46 | REP ---
INDICATION: STENOSIS COMPARISON: None. TECHNIQUE: Real-time ultrasound evaluation and duplex Doppler interrogation of the extracranial carotid vasculature is performed. FINDINGS: There is minimal plaquing and narrowing in both carotid bulbs extending into the internal and external carotid arteries. Luminal narrowing is less than 50%. There is no evidence of hemodynamically significant stenosis of either internal carotid artery. Normal flow velocities are seen. The vertebral arteries demonstrate normal direction of flow. RIGHT LEFT Peak systolic velocity ICA 79.0 cm/s 115 cm/s End diastolic velocity ICA 23.7 cm/s 39.5 cm/s Peak systolic velocity CCA 68.9 cm/s 79.6cm/s Peak systolic velocity ECA 73.3 cm/s 113 cm/s ICA/CCA ratio 1.14 1.44 IMPRESSION: Bilateral luminal narrowing of the internal carotid arteries less than 50%. No evidence of hemodynamically significant stenosis. <Electronically signed by Aguila Shahid > 07/14/20 [id number]
--- NOTE | 2020-07-14 15:54 | REP ---
INDICATION: STENOSIS COMPARISON: 04/15/2020. TECHNIQUE: Real time shahid scale and Duplex Doppler evaluation of the bilateral lower extremity arterial vasculature using linear high frequency transducer. FINDINGS: Shahid scale and duplex doppler images demonstrate a patent right iliac stent. There is variable luminal narrowing of the right superficial femoral artery with approximately 2-1 stenosis in the mid aspect. Distal right posterior tibial artery is occluded with reconstitution more distally. Biphasic waveforms are seen throughout the right lower extremity, with monophasic waveforms throughout the posterior tibial artery and in the distal anterior tibial artery. No significant stenosis is seen in the left lower extremity arterial system but there is significant plaque throughout. Peak systolic velocities (cm/sec) Abdominal aorta: 49 Common iliac artery: Right 147; left 63 External iliac artery: Right 79; left 92 Common femoral artery: Right 138; Left 182 Profunda femoris: Right 169; Left 151 SFA (proximal): Right 119; Left 144 SFA (mid): Right 113; Left 135 SFA (distal): Right 92; Left 99 Popliteal artery: Right 63; Left 87 JEAN PAUL (prox.): Right 79; Left 62 Tibioperoneal trunk: Right 47; Left 41 HEALTH CARE FACILITY ADMINISTRATOR (prox.): Right 38; Left 40 HEALTH CARE FACILITY ADMINISTRATOR (distal): Right 66; Left 53 JEAN PAUL (distal): Right 54; Left 50 IMPRESSION: Significant diffuse plaque bilaterally. Approximately 2-1 stenosis mid right SFA. Occlusion distal right HEALTH CARE FACILITY ADMINISTRATOR with reconstitution distally. Patent right iliac stent. <Electronically signed by Aguila Shahid > 07/14/20 [id number]
== END ==
LOC: M RAD 10:38
PROVIDERS: ATTEND Physician Assistant
DX: I70.213 Atherosclerosis of native arteries of extremities with intermittent claudication, bilateral legs (principal)

== ENCOUNTER 2020-08-02 09:05 | Day surgery (SDC) | payer MEDICARE, BC ==
[~2020-08-02] VITALS: Ht 127 cm; Wt 59.0 kg
[~2020-08-02 09:05] MED LIST changes: +LIDOCAINE 2% 100MG/5ML SDV (FOR ANES.) As Ordered ONE; +NS 1,000 ML IV ONE; +propofoL 500 MG/50 ML VIAL As Ordered ONE
--- NOTE | 2020-08-02 10:20 | ROOR ---
Patient Name: Flori Marie Procedure Date: 08/02/2020 9:49 AM Date of : 1945 Age: 75 Room: [facility] Gender: Female Note Status: Finalized Procedure: Total Colonoscopy to Cecum + Cold Snare Polypectomy + Hemoclips Indications: High risk colon cancer surveillance: Personal history of colonic polyps, Last colonoscopy: 2016, Incidental - Unexplained iron deficiency anemia Providers: Eddy Monahan MD Referring MD: Cullen Blackwell DO Requesting Provider: Medicines: Monitored Anesthesia Care Complications: No immediate complications. Procedure: Pre-Anesthesia Assessment: - The heart rate, respiratory rate, oxygen saturations, blood pressure, adequacy of pulmonary ventilation, and response to care were monitored throughout the procedure. The Colonoscope was introduced through the anus and advanced to the cecum, identified by appendiceal orifice and ileocecal valve. The colonoscopy was performed without difficulty. The patient tolerated the procedure well. The quality of the bowel preparation was excellent. Findings: The perianal and digital rectal examinations were normal. Non-bleeding internal hemorrhoids were found during retroflexion. The hemorrhoids were small and Grade I (internal hemorrhoids that do not prolapse). Multiple small and large-mouthed diverticula were found in the recto-sigmoid colon, sigmoid colon and descending colon. Two sessile polyps were found in the cecum. The polyps were medium in size. These polyps were removed with a cold snare. Resection and retrieval were complete. To prevent bleeding after the polypectomy, three hemostatic clips were successfully placed (MR conditional). There was no bleeding at the end of the procedure. Impression: - Non-bleeding internal hemorrhoids. - Diverticulosis in the recto-sigmoid colon, in the sigmoid colon and in the descending colon. - Two medium polyps in the cecum, removed with a cold snare. Resected and retrieved. Clips (MR conditional) were placed. - The exam was otherwise normal to the cecum. Recommendation: - Patient has a contact number available for emergencies. The signs and symptoms of potential delayed complications were discussed with the patient. Return to normal activities tomorrow. Written discharge instructions were provided to the patient. - High fiber diet. - Discharge patient to home. - Continue present medications. - Await pathology results. - Telephone GI clinic for pathology results in 1 week. - Repeat colonoscopy for surveillance based on pathology results. - Return to referring physician. - The findings and recommendations were discussed with the patient. Procedure Code(s): --- Professional --- G0105, Colorectal cancer screening; colonoscopy on individual at high risk Diagnosis Code(s): --- Professional --- Z86.010, Personal history of colonic polyps K64.0, First degree hemorrhoids K57.30, Diverticulosis of large intestine without perforation or abscess without bleeding CPT copyright 2019 [employer]. All rights reserved. The codes documented in this report are preliminary and upon defective cigarette slitter review may be revised to meet current compliance requirements. Eddy Monahan MD Eddy Monahan MD 08/02/2020 10:20:38 AM Electronically signed by Eddy Monahan MD Number of Addenda: 0 Note Initiated On: 08/02/2020 9:49 AM Estimated Blood Loss: Estimated blood loss: none.
[2020-08-02 10:40] VITALS: BP 178/74
== END 2020-08-02 10:46 | disposition home or self-care (01) ==
LOC: M OPP 09:05
PROVIDERS: ATTEND Internal Medicine Gastroenterology
DX: Z12.11 Encounter for screening for malignant neoplasm of colon (principal); Z86.010 Personal history of colon polyps; D12.0 Benign neoplasm of cecum; K57.30 Diverticulosis of large intestine without perforation or abscess without bleeding; K64.0 First degree hemorrhoids; I48.91 Unspecified atrial fibrillation; E11.9 Type 2 diabetes mellitus without complications; K21.9 Gastro-esophageal reflux disease without esophagitis; D50.9 Iron deficiency anemia, unspecified; F17.210 Nicotine dependence, cigarettes, uncomplicated; Z79.84 Long term (current) use of oral hypoglycemic drugs; Z79.891 Long term (current) use of opiate analgesic; Z79.899 Other long term (current) drug therapy; Z88.1 Allergy status to other antibiotic agents; Z88.5 Allergy status to narcotic agent; Z88.8 Allergy status to other drugs, medicaments and biological substances; Z91.048 Other nonmedicinal substance allergy status

== ENCOUNTER → 2020-12-10 | Outpatient (CLI) | payer MEDICARE, BC ==
[~2020-12-10] MED LIST changes: -CLIN150C15 PO; +CLIN150C17 PO; +ERGO500029 PO; +GASTROGRAFIN SOLUTION 30ML (Q9963) As Ordered ONE; +ISOVUE-370 76% 100ML VIAL As Ordered ONE; -LIDOCAINE 2% 100MG/5ML SDV (FOR ANES.) As Ordered ONE; -NS 1,000 ML IV ONE; -VITA50005 PO; -propofoL 500 MG/50 ML VIAL As Ordered ONE
--- NOTE | 2020-12-10 19:30 | REP ---
INDICATION: LEFT UPPER QUADRANT PAIN COMPARISON: 10/22/2019. TECHNIQUE: CT Scan of the abdomen and pelvis was performed with intravenous administration of 100 cc of Isovue 370, and oral contrast. Sagittal and coronal reconstruction images are performed. FINDINGS: Lung bases: There is mild ill-defined infiltrate in the visualized right middle lobe. Similar infiltrates are also seen in the visualized lingula and left lower lobe. There is mild cardiomegaly. Liver: Normal Gallbladder: Prior cholecystectomy. Spleen: Normal. Adrenals: Normal. Pancreas: Normal. Kidneys: Small cysts are seen in each kidney. There is no hydronephrosis. Small and large bowel: There is sigmoid and left colonic diverticulosis without evidence of acute diverticulitis. Free fluid: None. Abdominal aorta: No aneurysm or dissection. Adenopathy: None. Appendix: Prior appendectomy. Osseous structures: There are degenerative changes of the spine without compression deformity. Pelvis: No mass. Prior hysterectomy. IMPRESSION: Ill-defined infiltrates are seen throughout both lung bases. No acute abnormalities in the abdomen or pelvis. <Electronically signed by Aguila Shahid > 12/10/201925
== END ==
LOC: M RAD 16:57
PROVIDERS: ATTEND Nurse Practitioner Family
DX: R91.8 Other nonspecific abnormal finding of lung field (principal); R10.12 Left upper quadrant pain
CPT/HCPCS: 74177; Q9963; Q9967

== ENCOUNTER 2020-12-28 09:14 | Inpatient (IN) | payer MEDICARE, BC ==
[~2020-12-28] VITALS: Ht 162.6 cm; Wt 55.1 kg
[~2020-12-28 09:14] MED LIST changes: -GASTROGRAFIN SOLUTION 30ML (Q9963) As Ordered ONE; -ISOVUE-370 76% 100ML VIAL As Ordered ONE
--- NOTE | 2020-12-28 10:58 | REP ---
INDICATION: DYSPNEA/COUGH. COMPARISON: Comparison chest x-ray June 10, 2020. TECHNIQUE: Portable upright AP chest radiograph. FINDINGS: A loop recorder is seen projecting over the left hilar region. EKG electrodes are noted. Moderate cardiomegaly is again observed. The pleural angles are sharp. Pulmonary vasculature is slightly cephalized but distinct. There is no evidence of pulmonary edema. No focal infiltrate. IMPRESSION: Cephalization and cardiomegaly. No evidence of pleural effusion or pulmonary edema seen. No focal infiltrate. <Electronically signed by Dhiraj Mendez > 12/28/20 [id number]
[2020-12-28 11:22] LABS: VENOUS BASE EXCESS 6.2 (-2.0-2.0); VENOUS HCO3 32.3 MEQ/L (23.0-27.0); VENOUS O2 SATURATION 63.4 % (60.0-80.0); VENOUS PARTIAL PRESSURE CO2 51.6 mmHg (38.0-50.0); VENOUS PARTIAL PRESSURE O2 31.2 mmHg (30.0-50.0); VENOUS PH 7.414 UNITS (7.330-7.430); VENOUS STANDARD HCO3 29.2 MEQ/L; VENOUS TOTAL CO2 33.9 MEQ/L (24.0-28.0)
[2020-12-28 11:30] LABS: BASO % 0.3 % (0.0-1.0); EOS # 0.1 10^3/uL (0.0-0.5); EOS % 0.6 % (0.0-3.0); HEMATOCRIT 42.8 % (36.0-47.0); HEMOGLOBIN 13.8 g/dl (12.0-15.5); LYMPH # 1.3 10^3/uL (1.5-5.0); LYMPH % 10.3 % (24.0-44.0); MEAN CORPUSCULAR HEMOGLOBIN 28.8 pg (27.0-33.0); MEAN CORPUSCULAR HGB CONC 32.2 g/dl (32.0-36.5); MEAN CORPUSCULAR VOLUME 89.2 fl (80.0-96.0); MONO # 1.2 10^3/uL (0.0-0.8); MONO % 9.8 % (2.0-8.0); NEUTROPHILS # 9.7 10^3/uL (1.5-8.5); NEUTROPHILS % 78.4 % (36.0-66.0); PLATELET COUNT, AUTOMATED 297 10^3/uL (150-450); WHITE BLOOD COUNT 12.3 10^3/uL (4.0-10.0)
[2020-12-28 12:14] LABS: ALBUMIN 3.2 GM/DL (3.2-5.2); BILIRUBIN,DIRECT 0.2 MG/DL (0.0-0.2); BILIRUBIN,TOTAL 0.6 MG/DL (0.2-1.0); CALCIUM LEVEL 9.4 MG/DL (8.8-10.2); CK-MB VALUE MASS 3.8 NG/ML (<3.6); CREATININE FOR GFR 1.05 MG/DL (0.55-1.30); GLOMERULAR FILTRATION RATE 54.5 (>39); MB/CK RELATIVE INDEX 12.26 (< OR =4); POTASSIUM SERUM 3.8 MEQ/L (3.5-5.1); THYROID STIMULATING HORMONE 2.06 uIU/ML (0.358-3.740); THYROXINE (T4) 8.3 UG/DL (4.5-12.0); TOTAL PROTEIN 6.3 GM/DL (6.4-8.2); TROPONIN I 0.07 NG/ML (< 0.10)
[2020-12-28] MEDS ORDERED: COMBIVENT RESPIMAT 100-20MCG INHALER 4GM INH ONE (12:15)
[2020-12-28] MEDS ORDERED: FUROSEMIDE 20MG/2ML VIAL (J1940) IV ONE (12:20)
[2020-12-28] MEDS ORDERED: ISOVUE-370 76% 100ML VIAL As Ordered ONE (13:22)
[2020-12-28] MEDS ORDERED: GLUCAGON INJ 1MG VIAL SC PRN (13:30)
[2020-12-28] MEDS ORDERED: GLUCOSE 4GM CHEW TABLET PO PRN (13:30)
[2020-12-28] MEDS ORDERED: DEXTROSE 50% 50 ML SYRINGE IV PRN (13:30)
[2020-12-28] MEDS: HumaLOG INSULIN (NovoLOG) PER UNIT SC SCH ×3 (14:11→20:25)
--- NOTE | 2020-12-28 14:30 | REP ---
INDICATION: r/o pe. COMPARISON: None. TECHNIQUE: Contrast dose: 75 ML of Isovue [address] technique: Helical scanning is acquired and overlapping 1.5 mm and contiguous 3 mm axial images are reformatted. In addition, maximum intensity projection and multiplanar re-formation images are generated in sagittal and coronal imaging projections. FINDINGS: There is good opacification in the pulmonary arterial tree. There is no evidence of vessel cut off or filling defect to suggest pulmonary embolus. Homogeneous opacity is seen in the thoracic aorta. There is no evidence of aneurysm or dissection. There is no evidence of pleural or pericardial effusion. There is moderate cardiac enlargement again noted unchanged. There is reflux of opacified blood from the right atrium into the hepatic segment of the vena cava again noted. This is also unchanged but compatible with right heart failure. There are surgical clips in the gallbladder fossa. Lung window settings demonstrate no infiltrate, mass, or atelectasis. Vascular calcification is noted. In the upper abdomen, there is an intrarenal 3 mm calculus in the upper pole of the left kidney. No hydronephrosis. IMPRESSION: No CT evidence of pulmonary embolus. Moderate cardiac enlargement with evidence of right heart failure again noted. Post cholecystectomy. Intrarenal calculus upper pole left kidney. <Electronically signed by Dhiraj Mendez > 12/28/20 [id number]
[2020-12-28] MEDS: HEPARIN SOD (PORCINE) 5000UNITS/ML 1ML VIAL/SYRINGE SC SCH ×2 (14:40→21:25)
[2020-12-28] MEDS ORDERED: MAGN400T2 PO (14:42)
[2020-12-28] MEDS ORDERED: ZOLP12.518 PO (14:42)
[2020-12-28] MEDS ORDERED: RAPA8CAP4 PO (14:42)
[2020-12-28] MEDS ORDERED: RA M10TA PO (14:42)
[2020-12-28] MEDS ORDERED: DICY20TA11 PO (14:42)
[2020-12-28] MEDS ORDERED: FERR325T3 PO (14:42)
[2020-12-28] MEDS ORDERED: SUCR1TA PO (14:56)
[2020-12-28] MEDS ORDERED: ALBU83IN INH (14:56)
[2020-12-28] MEDS ORDERED: HOME MED LIST COMPLETE! XX SCH (15:00)
[2020-12-28] MEDS ORDERED: ALBUTEROL SULFATE 2.5 MG/0.5 ML INH NEB SOLN INH PRN (15:30)
--- NOTE | 2020-12-28 15:39 | HPEPDOC ---
[facility] Medical History & Physical Date of Admission Dec 28, 2020 Date of Service: Dec 28, 2020 History and Physical CHIEF COMPLAINT: "Girard tired" HISTORY OF PRESENT ILLNESS: 75-year-old female with past medical history of CHF, hypertension, diabetes mellitus type 2, COPD, atrial fibrillation, left bundle branch block who presented to the emergency department with complaints of fatigue and feeling dizzy. She is a very poor historian reported that this has been going on for a few months now and decided come to the emergency room department today because she felt her symptoms had worsened. She was unable to provide any other details. She has not seen her primary care physician [place] She denied palpitations, chest pain, shortness of breath, abdominal pain, nausea, vomiting, problem with urination or bowel movements. She denied orthopnea, paroxysmal nocturnal dyspnea, and edema in her lower extremities. Past medical history and surgical history was obtained from chart review. PAST MEDICAL HISTORY: 1. Chronic neck and low back pain. 2. Type 2 diabetes. 3. Hypertension. 4. Dyslipidemia. 5. Paroxysmal atrial fibrillation. 6. Chronic left bundle branch block. 7. Diverticulosis. 8. Abdominal hernia 9. Bladder prolapse PAST SURGICAL HISTORY: 1. Cholecystectomy. 2. Partial hysterectomy. 3. Appendectomy. 4. section. 5. Rectal prolapse and had surgery. SOCIAL HISTORY: She smokes one pack per day since age 26. Denies any alcohol use Denies illicit/recreational drug use FAMILY HISTORY: Parents were diabetics. ALLERGIES: Please see below. REVIEW OF SYSTEMS: 10 point review of system was negative except for what is noted in the HPI HOME MEDICATIONS: Please see below. PHYSICAL EXAMINATION: VITAL SIGNS: Please see below General: Lying in bed, no acute distress Head/Neck/Throat: Trachea midline, dry mucous membranes Eyes: Sclera anicteric, no erythema or discharge appreciated bilaterally Thorax: Normal respiratory effort on room air, lungs clear to auscultation bilaterally, no wheezes/rales/rhonchi Cardiovascular: Normal rate, regular rhythm, normal S1, S2; radial and dorsalis pedis 2+, no lower extremity or sacral edema appreciated, no JVD Abdomen: Bowel sounds present, soft/nontender/nondistended Genitourinary: No CVA tenderness, no Benitez in place Musculoskeletal: Moving all extremities, no edema Skin: Warm, dry Neurologic: AAOx3, speech fluent and goal-directed, no focal deficits, grossly intact LABORATORY DATA: See below. IMAGING: Chest x-ray noted cephalization MICROBIOLOGY: Please see below. ASSESSMENT/PLAN: #Dizziness/fatigue -EKG showed no acute acute changes from her previous (history of left bundle branch block). Initial troponin is negative. Continue to trend troponins -Tachycardia noted on telemetry. She reports having a loop recorder in place for this reason. We will obtain CTA to rule out pulmonary embolism. -Echocardiogram to r/o ventriculare/valvular contribution -Check orthostatic signs -Pt/ot #Systolic and dialysotic HF -She has no signs clinically for exacerbation. Elevated bnp, but below baseline. On exam she actually appears to be dry. -Repeat echocardiogram (last one done in 2019). -Reports taking furosemide 40mg BID, however, medication reconciled for 20mg BID - will need to clarify. Continue prn. #MAK -Cr elevated from 06/25 and BUN. Likely over diuresed from lasix thus will hold. Repeat chem in Am. #Paroxysmal atrial fibrillation -Continue bisoprolol for rate control, and anticoagulation with Xarelto. -Monitor on telemetry. #COPD -No signs of acute exacerbation. Continue with albuterol as needed, scheduled budesonide, and Singulair. #Type 2 diabetes mellitus -We will hold oral diabetic medications including repaglinide, glipizide and Metformin. Start patient on sliding scale. Hypoglycemic protocol. Accu-Cheks. #GERD -Continue with ppi #Hypothyroidism -Check TSH. Continue Synthroid #Hypertension -Continue losartan. #Anxiety/depression -Continue with venlafaxine #DVT prophylaxis -Continue Xarelto Vital Signs Vital Signs Date Time Temp Pulse Resp B/P (MAP) Pulse Ox O2 Delivery O2 Flow Rate FiO2 12/28/20 13:00 113 18 99 Room Air 12/28/20 12:46 136/78 (97) 12/28/20 10:48 97.5 Laboratory Data Labs 24H Laboratory Tests 2 12/28/20 11:13: Immature Granulocyte % (Auto) 0.6, Neutrophils (%) (Auto) 78.4H, Lymphocytes (%) (Auto) 10.3L, Monocytes (%) (Auto) 9.8H, Eosinophils (%) (Auto) 0.6, Basophils (%) (Auto) 0.3, Neutrophils # (Auto) 9.7H, Lymphocytes # (Auto) 1.3L, Monocytes # (Auto) 1.2H, Eosinophils # (Auto) 0.1, Basophils # (Auto) 0.0, Nucleated Red Blood Cells % (auto) 0.0, Blood Gas Bicarbonate Standard 29.2, Venous Blood pH 7.414, Venous Blood Partial Pressure CO2 51.6H, Venous Blood Partial Pressure O2 31.2, Venous Blood Total Carbon Dioxide 33.9H, Venous Blood HCO3 32.3H, Venous Blood Oxygen Saturation 63.4, Venous Blood Base Excess 6.2H, Anion Gap 7L, Glomerular Filtration Rate 54.5, Lactic Acid Level 1.8, Calcium Level 9.4, Total Bilirubin 0.6, Direct Bilirubin 0.2, Aspartate Amino Transf (AST/SGOT) 17, Alanine Aminotransferase (ALT/SGPT) 22, Alkaline Phosphatase 95, Total Creatine Kinase 31, Creatine Kinase MB 3.8H, Creatine Kinase MB Relative Index 12.26H, Troponin I 0.07, YJ-Tqs-T-Type Natriuretic Peptide 5536H, Total Protein 6.3L, Albumin 3.2, Albumin/Globulin Ratio 1.0L, Thyroid Stimulating Hormone (TSH) 2.060, Thyroxine (T4) 8.3 12/28/20 12:33: Urine Color YELLOW, Urine Appearance CLEAR, Urine pH 6.0, Urine Specific [place] 1.010, Urine Protein 1+H, Urine Glucose (UA) 3+H, Urine Ketones NEGATIVE, Urine Blood NEGATIVE, Urine Nitrite NEGATIVE, Urine Bilirubin NEGATIVE, Urine Urobilinogen 0.2, Urine Leukocyte Esterase NEGATIVE, Urine WBC (Auto) 0, Urine RBC (Auto) 2, Urine Hyaline Casts (Auto) 0, Urine Bacteria (Auto) NEGATIVE, Urine Squamous Epithelial Cells 3, Urine Sperm (Auto) CBC/BMP Laboratory Tests 12/28/20 11:13 Microbiology Microbiology 12/28/20 Blood Culture, Received Pending 12/28/20 Respiratory Virus Panel (PCR) (MIGUELANGEL) - Final, Complete 12/28/20 Blood Culture, Received Pending Home Medications Scheduled Atorvastatin Calcium (Atorvastatin Calcium) 40 Mg Tablet, 40 MG PO QHS Bisoprolol Fumarate (Bisoprolol Fumarate) 5 Mg Tablet, 2.5 MG PO QHS Cyclobenzaprine HCl (Cyclobenzaprine HCl) 10 Mg Tablet, 10 MG PO BID Ergocalciferol (Vitamin D2) (Vitamin D2) 50,000 Units Cap, 50,000 UNITS PO QMONTH TAKES ON THE 1ST OF THE MONTH Estradiol (Estrace) 42.5 Gm Cream.appl, 0.25 GM VA QHS APPLY TO PERIURETHRAL AREA Ferrous Sulfate (Ferrous Sulfate) 325 Mg Tablet.dr, 325 MG PO DAILY Furosemide (Furosemide) 20 Mg Tablet, 20 MG PO BID Glipizide (Glipizide ER) 10 Mg Tab.er.24, 10 MG PO BID Lansoprazole (Lansoprazole) 30 Mg Capsule.dr, 30 MG PO BID Levothyroxine Sodium (Synthroid) 50 Mcg Tablet, 50 MCG PO QAM Magnesium Oxide (Magnesium Oxide) 400 Mg Tablet, 400 MG PO DAILY Melatonin (Melatonin) 5 Mg Tablet, 5 MG PO QHS TAKES WITH 10MG TO MAKE 15MG Melatonin (Melatonin) 10 Mg Tablet, 10 MG PO QHS TAKES WITH 5MG TO MAKE 15MG Metformin HCl (Metformin HCl) 500 Mg Tab, 500 MG PO BID Montelukast Sodium (Montelukast Sodium) 10 Mg Tablet, 10 MG PO QHS Polyethylene Glycol 3350 (Miralax) 17 Gm Powd.pack, 17 GM PO DAILY MIXES WITH BENEFIBER Repaglinide (Repaglinide) 1 Mg Tablet, 0.5 MG PO TID Rivaroxaban (Xarelto) 20 Mg Tablet, 20 MG PO QPM Sucralfate (Sucralfate) 1 Gm Tablet, 1 GM PO ACHS Venlafaxine HCl (Venlafaxine HCl ER) 75 Mg Cap, 75 MG PO QHS Wheat Dextrin (Benefiber) 1 Each Powd.pack, 1 POW PO DAILY MIXES WITH MIRALAX Zolpidem Tartrate (Zolpidem Tartrate ER) 12.5 Mg Tab.mphase, 12.5 MG PO QHS Scheduled PRN Albuterol Sulf (Albuterol Sulfate) 2.5 Mg/3 Ml Vial.neb, 2.5 MG INH Q4H PRN for SHORTNESS OF BREATH Albuterol Sulfate (Proair Hfa) 8.5 Gm Hfa.aer.ad, 2 PUFF INH QID PRN for SHORTNESS OF BREATH Dicyclomine HCl (Dicyclomine HCl) 20 Mg Tablet, 20 MG PO TID PRN for CRAMPS Fluticasone Propionate (Fluticasone Propionate) 16 Gm [place].susp, 2 SPRAYS NA DAILY PRN for NASAL CONGESTION Metoclopramide HCl (Metoclopramide HCl) 10 Mg Tablet, 10 MG PO Q6H PRN for NAUSEA Oxycodone HCl/Acetaminophen (Oxycodone-Acetaminophen 5-325) 1 Each Tablet, 1 TAB PO QID PRN for PAIN LEVEL 7-10 Pramipexole Di-HCl (Mirapex) 0.125 Mg Tablet, 0.25 MG PO QHS PRN for RESTLESSNESS Silodosin (Rapaflo) 8 Mg Capsule, 8 MG PO DAILY PRN for URINE RETENTION Allergies Coded Allergies: amitriptyline (Verified Allergy, Unknown, 07/27/20) balsam woodrow (Verified Allergy, Unknown, 07/27/20) bismuth subgallate (Verified Allergy, Unknown, 07/27/20) caffeine (Verified Allergy, Unknown, 07/27/20) doxycycline (Verified Allergy, Unknown, 07/27/20) fentanyl (Verified Allergy, Unknown, 07/27/20) gabapentin (Verified Allergy, Unknown, 07/27/20) lisinopril (Verified Allergy, Unknown, 07/27/20) mineral oil (Verified Allergy, Unknown, 07/27/20) nabumetone (Verified Allergy, Unknown, 07/27/20) pramoxine (Verified Allergy, Unknown, 07/27/20) propoxyphene (Verified Allergy, Unknown, 07/27/20) resorcinol (Verified Allergy, Unknown, 07/27/20) starch (Verified Allergy, Unknown, 07/27/20) suture (Verified Allergy, Unknown, PERMANENT SUTURES, 12/28/20) zinc oxide (Verified Allergy, Unknown, 07/27/20) A-FIB/CHADSVASC A-FIB History Current/History of A-Fib/PAF?: Yes Current PO Anticoag Therapy: Yes MERNA HAYES M.D. Dec 28, 2020 13:30
[2020-12-28] MEDS ORDERED: PILL CUTTER 1 EACH XX PRN (15:40)
[2020-12-28 17:14] VITALS: BP 149/84
[2020-12-28 17:15] VITALS: BP_SYST 120; BP_SYST 146; BP_SYST 149; BP_DIAS 58; BP_DIAS 84; BP_DIAS 85
[2020-12-28] MEDS: RIVAROXABAN 20 MG TAB (XARELTO) PO SCH (17:41)
[2020-12-28] MEDS: ATORVASTATIN 20 MG TAB PO SCH (20:23)
[2020-12-28] MEDS: MONTELUKAST 10 MG TAB PO SCH (20:23)
[2020-12-28] MEDS: VENLAFAXINE **XR** 75MG CAPSULE PO SCH (20:23)
[2020-12-28] MEDS: bisoproloL fumarate 5 MG TAB PO SCH (20:24)
[2020-12-28 22:00] VITALS: BP 126/76
[2020-12-28] MEDS: LEVEMIR (INSULIN DETEMIR) 1 UNITS/0.01ML SC SCH (22:17)
[2020-12-29] MEDS: PERCOCET 5MG/325MG TAB PO PRN (00:36)
[2020-12-29] MEDS: LEVOTHYROXINE 50MCG TABLET (0.05MG) PO SCH (05:29)
[2020-12-29] MEDS: HEPARIN SOD (PORCINE) 5000UNITS/ML 1ML VIAL/SYRINGE SC SCH (05:29)
[2020-12-29 06:00] VITALS: BP 138/78
[2020-12-29 06:10] LABS: BLOOD UREA NITROGEN 26 MG/DL (7-18); CALCIUM LEVEL 8.8 MG/DL (8.8-10.2); CARBON DIOXIDE LEVEL 33 MEQ/L (21-32); CHLORIDE LEVEL 99 MEQ/L (98-107); CREATININE FOR GFR 0.86 MG/DL (0.55-1.30); GLOMERULAR FILTRATION RATE > 60.0 (>39); GLUCOSE, FASTING 153 MG/DL (70-100); MAGNESIUM LEVEL 1.7 MG/DL (1.8-2.4); PHOSPHORUS LEVEL 4.4 MG/DL (2.5-4.9); POTASSIUM SERUM 3.8 MEQ/L (3.5-5.1); SODIUM LEVEL 139 MEQ/L (136-145)
[2020-12-29 06:22] LABS: HEMATOCRIT 39.2 % (36.0-47.0); HEMOGLOBIN 12.8 g/dl (12.0-15.5); MEAN CORPUSCULAR HEMOGLOBIN 29.6 pg (27.0-33.0); MEAN CORPUSCULAR HGB CONC 32.7 g/dl (32.0-36.5); MEAN CORPUSCULAR VOLUME 90.5 fl (80.0-96.0); PLATELET COUNT, AUTOMATED 260 10^3/uL (150-450); RED BLOOD COUNT 4.33 10^6/uL (4.00-5.40); WHITE BLOOD COUNT 9.1 10^3/uL (4.0-10.0)
[2020-12-29 06:59] LABS: HEMOGLOBIN A1c 8.2 %
[2020-12-29] MEDS ORDERED: FLUBLOK(EGG FREE)(QUAD)INFLUENZA VACC 0.5ML SYRINGE 18YRS & OLDER IM ONE (09:00)
[2020-12-29] MEDS ORDERED: PREVNAR 13 VACCINE SYRINGE IM ONE (09:00)
[2020-12-29] MEDS: PANTOPRAZOLE 40MG TAB (PROTONIX) PO SCH (09:01)
[2020-12-29] MEDS: FERROUS SULFATE 325MG TAB PO SCH (09:01)
[2020-12-29] MEDS: MIRALAX *UNIT DOSE* 17GM PACKET PO SCH (09:01)
[2020-12-29] MEDS: HumaLOG INSULIN (NovoLOG) PER UNIT SC SCH ×4 (09:02→20:30)
--- NOTE | 2020-12-29 09:23 | ECGEPIP ---
[facility] Test Date: 2020-12-29 Pat Name: FRANCISCO NAILS Department: Room: [place] [address] Gender: Female Evp Strategy: PRESTON : 1945 Requested By: MERNA Dunbar Order Number: [id number] Reading MD: Brett Jasso Measurements Intervals [place] Rate: 86 P: NE: QRS: -36 QRSD: 154 T: 179 QT: 434 QTc: 519 Interpretive Statements Regular undetermined rhythm at 86 bpm with 2 isolated PVCs. Left axis deviation Left bundle branch block Atrial tachycardia or atrial flutter waves no longer evident in comparison to 12/28/2020. Electronically Signed on 12-29-2020 9:23:50 EDT by Brett Jasso
[2020-12-29] MEDS ORDERED: MAGNESIUM OXIDE 400MG TAB (MAG-OX) PO ONE (11:50)
--- NOTE | 2020-12-29 12:00 | IPNPDOC ---
Subjective Date Seen The patient was seen on 12/29/20. Subjective Chief Complaint/HPI Patient was seen and examined at bedside this morning. She was asking to go home because she was concerned about her . He has early body dementia and is not able to take care of himself entirely. Her daughter was on the phone and was given updates. The patient was also made aware that an echocardiogram was pending as well as cardiology evaluation. She was in agreement with staying. Overnight, patient had an episode of bradycardia while awake and reported dizziness. Other systems 10 point review of system was negative except for what is noted in the HPI Objective Physical Examination Other physical findings General: Lying in bed, no acute distress Head/Neck/Throat: Trachea midline, dry mucous membranes Eyes: Sclera anicteric, no erythema or discharge appreciated bilaterally Thorax: Normal respiratory effort on room air, lungs clear to auscultation bi laterally, no wheezes/rales/rhonchi Cardiovascular: Normal rate, regular rhythm, normal S1, S2; radial and dorsalis pedis 2+, no lower extremity or sacral edema appreciated, no JVD Abdomen: Bowel sounds present, soft/nontender/nondistended Genitourinary: No CVA tenderness, no Benitez in place Musculoskeletal: Moving all extremities, no edema Skin: Warm, dry Neurologic: AAOx3, speech fluent and goal-directed, no focal deficits, grossly intact Assessment /Plan Assessment #Dizziness/fatigue -Repeat EKG this morning showed no acute acute changes from her previous (history of left bundle branch block). Troponin trend was negative. -Tachycardia noted on telemetry with an episode of bradycardia. She reports having a loop recorder in place for this reason. Cardiology was asked to see the patient as she was previously evaluated for possible pacemaker. -Echocardiogram to r/o ventriculare/valvular contribution -She had positive orthostatic signs on admission after receiving diuretics. Further diuresis was held, will repeat orthostatic signs today. #Systolic and dialysotic HF -She has no signs clinically for exacerbation. Elevated bnp, but below baseline. On exam she actually appears to be dry. -Repeat echocardiogram (last one done in 2019). -Hold diuretics today #MAK -Resolved. #Paroxysmal atrial fibrillation -Continue bisoprolol with holding parameters for rate control, and anticoagulation with Xarelto. -Monitor on telemetry. #COPD -No signs of acute exacerbation. Continue with albuterol as needed, scheduled budesonide, and Singulair. #Type 2 diabetes mellitus -We will hold oral diabetic medications including repaglinide, glipizide and M etformin. Start patient on sliding scale. Hypoglycemic protocol. Accu-Cheks. #GERD -Continue with ppi #Hypothyroidism -TSH within normal limits. -Continue Synthroid #Hypertension -Continue losartan. #Anxiety/depression -Continue with venlafaxine #DVT prophylaxis -Continue Xarelto Plan/VTE VTE Prophylaxis Ordered?: No VS, I&O, 24H, Fishbone Vital Signs/I&O Vital Signs Date Time Temp Pulse Resp B/P (MAP) Pulse Ox O2 Delivery O2 Flow Rate FiO2 12/29/20 06:00 97.4 77 18 138/78 (98) 92 Room Air I&O- Last 24 Hours up to 6 AM 12/29/20 06:00 Intake Total 390 ml Output Total 300 ml Balance 90 ml Laboratory Data 24H LABS Laboratory Tests 2 12/28/20 12:33: Urine Color YELLOW, Urine Appearance CLEAR, Urine pH 6.0, Urine Specific [place] 1.010, Urine Protein 1+H, Urine Glucose (UA) 3+H, Urine Ketones NEGATIVE, Urine Blood NEGATIVE, Urine Nitrite NEGATIVE, Urine Bilirubin NEGATIVE, Urine Urobilinogen 0.2, Urine Leukocyte Esterase NEGATIVE, Urine WBC (Auto) 0, Urine RBC (Auto) 2, Urine Hyaline Casts (Auto) 0, Urine Bacteria (Auto) NEGATIVE, Urine Squamous Epithelial Cells 3, Urine Sperm (Auto) 12/28/20 14:50: Troponin I 0.07 12/28/20 16:59: Bedside Glucose (Misc Panel) 349H 12/28/20 17:54: Troponin I 0.07 12/28/20 20:08: Bedside Glucose (Misc Panel) 299H 12/29/20 05:29: Nucleated Red Blood Cells % (auto) 0.0, Anion Gap 7L, Glomerular Filtration Rate > 60.0, Estimated Mean Plasma Glucose 189H, Hemoglobin A1c 8.2, Calcium Level 8.8, Phosphorus Level 4.4, Magnesium Level 1.7L 12/29/20 05:36: Bedside Glucose (Misc Panel) 162H 12/29/20 11:27: Bedside Glucose (Misc Panel) 329H CBC/BMP Laboratory Tests 12/29/20 05:29 Microbiology Microbiology 12/28/20 Blood Culture - Preliminary, Resulted No growth after 24 hours . All specim... 12/28/20 Respiratory Virus Panel (PCR) (MIGUELANGEL) - Final, Complete 12/28/20 Blood Culture - Preliminary, Resulted No growth after 24 hours . All specim... MERNA HAYES M.D. Dec 29, 2020 12:00
[2020-12-29 14:00] VITALS: BP 131/72
[2020-12-29 15:22] VITALS: BP_SYST 108; BP_SYST 118; BP_SYST 90; BP_DIAS 56; BP_DIAS 60
[2020-12-29] MEDS ORDERED: NS 500 ML IV ONE (17:10)
[2020-12-29] MEDS: RIVAROXABAN 20 MG TAB (XARELTO) PO SCH (17:23)
[2020-12-29] MEDS: zolPIDEM TARTRATE 5 MG TAB PO PRN (20:31)
[2020-12-29] MEDS: PRAMIPEXOLE 0.25 MG TAB PO PRN (20:32)
[2020-12-29] MEDS: VENLAFAXINE **XR** 75MG CAPSULE PO SCH (20:32)
[2020-12-29] MEDS: ATORVASTATIN 20 MG TAB PO SCH (20:32)
[2020-12-29] MEDS: LEVEMIR (INSULIN DETEMIR) 1 UNITS/0.01ML SC SCH (20:32)
[2020-12-29] MEDS: MONTELUKAST 10 MG TAB PO SCH (20:32)
[2020-12-29] MEDS: bisoproloL fumarate 5 MG TAB PO SCH (20:33)
[2020-12-29 22:00] VITALS: BP 126/70
[2020-12-30 06:00] VITALS: BP_SYST 116; BP_SYST 125; BP_SYST 140; BP_SYST 143; BP_DIAS 62; BP_DIAS 67; BP_DIAS 75; BP_DIAS 77
[2020-12-30] MEDS: LEVOTHYROXINE 50MCG TABLET (0.05MG) PO SCH (06:07)
--- NOTE | 2020-12-30 07:26 | ECGEPIP ---
[facility] - ED Test Date: 2020-12-28 Pat Name: FRANCISCO NAILS Department: Room: - Gender: Female Tax Advisor: GIANNI : [id number] Requested By: Misty Bonilla Order Number: [id number] Reading MD: Misty Bonilla Measurements Intervals [place] Rate: 106 P: -10 PA: 164 QRS: 227 QRSD: 148 T: 39 QT: 394 QTc: 523 Interpretive Statements undetermined rhythm lbbb Left ventricular hypertrophy with QRS widening and repolarization abnormality ( [place] product ) Lateral infarct , age undetermined Electronically Signed on 12-30-2020 7:26:16 EDT by Misty Bonilla
[2020-12-30 07:52] VITALS: BP 120/68
[2020-12-30] MEDS: HumaLOG INSULIN (NovoLOG) PER UNIT SC SCH ×4 (08:30→20:25)
[2020-12-30] MEDS: PANTOPRAZOLE 40MG TAB (PROTONIX) PO SCH (09:07)
[2020-12-30] MEDS: FERROUS SULFATE 325MG TAB PO SCH (09:07)
[2020-12-30] MEDS: MIRALAX *UNIT DOSE* 17GM PACKET PO SCH (09:08)
[2020-12-30] MEDS: PERCOCET 5MG/325MG TAB PO PRN ×2 (12:04→20:23)
[2020-12-30 16:45] VITALS: BP 126/67
[2020-12-30] MEDS: RIVAROXABAN 20 MG TAB (XARELTO) PO SCH (17:31)
[2020-12-30] MEDS ORDERED: NS 500 ML IV ONE (17:40)
[2020-12-30 18:01] VITALS: BP_SYST 112; BP_SYST 128; BP_DIAS 61; BP_DIAS 67; BP_DIAS 76
[2020-12-30] MEDS ORDERED: MIDODRINE 2.5 MG TAB PO ONE (19:20)
[2020-12-30 20:24] VITALS: BP 136/75
[2020-12-30] MEDS: zolPIDEM TARTRATE 5 MG TAB PO PRN (20:24)
[2020-12-30] MEDS: VENLAFAXINE **XR** 75MG CAPSULE PO SCH (20:24)
[2020-12-30] MEDS: MONTELUKAST 10 MG TAB PO SCH (20:24)
[2020-12-30] MEDS: PRAMIPEXOLE 0.25 MG TAB PO PRN (20:24)
[2020-12-30] MEDS: ATORVASTATIN 20 MG TAB PO SCH (20:24)
[2020-12-30] MEDS: bisoproloL fumarate 5 MG TAB PO SCH (20:24)
[2020-12-30] MEDS: LEVEMIR (INSULIN DETEMIR) 1 UNITS/0.01ML SC SCH (20:25)
--- NOTE | 2020-12-30 20:46 | ECHO ---
ECHOCARDIOGRAM DATE OF PROCEDURE: 12/30/2020 Age: Gender: Female Height: 163 cm Weight: 54 kg REFERRING PHYSICIAN: Dimitris Gonzalez M.D. INDICATION: Congestive heart failure. MEASUREMENTS: IVS 1.2 cm LV 4.1 cm LVPW 1.1 cm LA 4.0 cm Aorta 3.3 cm Left atrial volume index 55 IVC 1.9 cm FINDINGS: This study is of acceptable technical quality. Underlying atrial fibrillation with controlled rate and left bundle branch block. Left ventricle is normal size. There is very prominent septal wall motion abnormality consistent with left bundle branch block (LBBB) and mild global hypokinesis. I estimate overall left ventricular ejection fraction (LVEF) 40-45%. Right ventricle appears grossly normal. There is severe biatrial enlargement. Aortic valve is tricuspid. It is sclerotic, but mobility is preserved. There are degenerative abnormalities of mitral valve with mitral annular calcifications, but mobility of leaflets is preserved. Tricuspid valve appears normal. Pulmonic valve was not well seen. No pericardial effusion is noted. Inferior vena cava is borderline dilated, but collapses with inspiration, indicative of either normal or mildly elevated central venous pressure. Aortic root appears normal. Aortic arch was poorly seen. Abdominal aorta appears normal. Doppler interrogation of aortic valve reveals no stenosis or insufficiency. There is approximately mild to moderate mitral insufficiency and trace tricuspid insufficiency. Unfortunately, quality of TR jet was not sufficient to adequately estimate pulmonary artery pressure. CONCLUSIONS: 1. Study is of acceptable technical quality. Underlying atrial fibrillation with controlled rate and left bundle branch block. 2. Normal left ventricular (LV) size with mild left ventricular hypertrophy (LVH), global hypokinesis and septal wall motion abnormality consistent with left bundle branch block (LBBB). Overall left ventricular ejection fraction (LVEF) estimated at 40-45%. 3. Normal right ventricle. 4. Severe biatrial enlargement. 5. Aortic sclerosis, but no stenosis or insufficiency. 6. Mild to moderate mitral insufficiency. 7. Likely normal central venous pressure. 8. Unable to estimate pulmonary artery pressure, but no signs to suggest pulmonary hypertension. MTDD
[2020-12-30 22:00] VITALS: BP 136/75
[2020-12-31 06:00] VITALS: BP_SYST 138; BP_SYST 142; BP_SYST 144; BP_DIAS 77; BP_DIAS 78; BP_DIAS 79
[2020-12-31] MEDS: LEVOTHYROXINE 50MCG TABLET (0.05MG) PO SCH (06:00)
[2020-12-31] MEDS: MIDODRINE 2.5 MG TAB PO SCH ×2 (08:55→15:49)
[2020-12-31] MEDS: FERROUS SULFATE 325MG TAB PO SCH (08:55)
[2020-12-31] MEDS: PANTOPRAZOLE 40MG TAB (PROTONIX) PO SCH (08:56)
[2020-12-31] MEDS: MIRALAX *UNIT DOSE* 17GM PACKET PO SCH (08:57)
[2020-12-31] MEDS: HumaLOG INSULIN (NovoLOG) PER UNIT SC SCH ×2 (08:57→12:00)
[2020-12-31 09:00] VITALS: BP_SYST 118; BP_SYST 120; BP_SYST 122; BP_DIAS 70; BP_DIAS 72; BP_DIAS 78
--- NOTE | 2020-12-31 11:36 | CR ---
CARDIOLOGY CONSULTATION DATE: 12/28/2020 REFERRING PHYSICIAN: Dimitris Gonzalez M.D. REASON FOR CONSULTATION: Dizziness, near syncope. HISTORY OF PRESENT ILLNESS: Mrs. Marie is known to me. She is seen in our office chronically. She is a rather complicated patient who has numerous medical problems including congestive heart failure, hypertension, diabetes, chronic obstructive pulmonary disease (COPD), atrial fibrillation, left bundle branch block, peripheral vascular disease and coronary artery disease. She came to the emergency room on December 28, 2020 with a specific complaint about feeling tired and dizzy. Unfortunately, she also has underlying dementia, and consequently, the history obtained from the patient is rather limited, but I was able to determine that she frequently gets lightheaded when she stands up or with prolonged standing. Also, she had numerous vital signs obtained during this hospitalization which revealed evidence for orthostatic drop in blood pressure. During her current telemetry monitoring, she is principally in atrial fibrillation with controlled rate, but there are also episodes of sinus rhythm, at which point she also gets bradycardic in the 40s and 50s with a very long AK interval. At bedside, her dominant complaint, though, is lower extremity pain. She complains about pains principally in her calves, more on the right than left lower extremity, which is further worsened by ambulation. PAST MEDICAL HISTORY: 1. Paroxysmal atrial fibrillation, initially diagnosed in 2012 and remains paroxysmal in nature, even though her atrial fibrillation (AF) burden is very high, exceeding 70-80%. She has a loop recorder in place. 2. Coronary artery disease. Her last cardiac catheterization was in 2017 and revealed nonobstructive coronary artery disease (CAD). She had her last nuclear stress test in 2019, which was indicative of normal perfusion. 3. Congestive heart failure. She has underlying left bundle branch block and consequently, at least mildly reduced ejection fraction that, over time, was estimated in the neighborhood of 35 to about 55%. She is chronically on furosemide 40 mg twice a day. 4. Chronic left bundle branch block. 5. Hyperlipidemia. 6. Type 2 diabetes. 7. Hypertension. 8. Chronic obstructive pulmonary disease (COPD). 9. Carotid artery disease, last evaluation was carotid ultrasound in July 2020, which revealed bilateral less than 50% stenosis. 10. Peripheral vascular disease status post several interventions to right iliac arteries. The last arterial Doppler in July 2020, though, revealed significant stenosis in the right superficial femoral artery and occlusion of distal right upper popliteal artery with distal reconstitution. She used to follow with Dr. Orellana, but since her departure, she has not seen a new provider. 11. Dementia. 12. Diverticulosis. 13. History of bladder and rectal prolapse. 14. Abdominal hernia. OUTPATIENT MEDICATIONS: According to our office records, she is on: - albuterol - atorvastatin 40 mg daily - bisoprolol 2.5 mg at night - Pulmicort inhaler - Flexeril as needed - Esterase vaginal cream - iron sulfate 325 mg daily - fluticasone as needed - furosemide 40 mg twice a day - glipizide 10 mg twice a day - Prevacid 30 mg daily - Synthroid 50 mcg daily - magnesium oxide 400 mg daily - metformin 500 mg three times a day - Reglan 10 mg as needed - Singulair 10 mg daily - Percocet as needed for pain - Mirapex 0.125 mg as needed for restless leg syndrome - Prandin 0.5 mg three times a day - Rapaflo 8 mg as needed - Carafate 1 mg as needed - Effexor XR 75 mg nightly - vitamin D 50,000 units every 30 days - Benefiber 1 teaspoon daily - Ambien as needed for sleep - losartan 50 mg daily - Xarelto 20 mg daily ALLERGIES: She has numerous intolerances and allergies that are listed as: CAFFEINE, TYLENOL, AMLODIPINE, DOXYCYLINE, FENTANYL, RELAFEN, ZESTRIL, ADHESIVE TAPE, AMITRIPTYLINE, DARVOCET, HYDROCODONE, NEURONTIN. SURGICAL HISTORY: 1. Cholecystectomy. 2. Hysterectomy. 3. Appendectomy. 4. (C) section. 5. Repair of rectal prolapse. 6. Implant of a loop recorder. 7. Sigmoid resection. 8. Tongue biopsy. 9. Tonsillectomy. 10. Vascular procedures. SOCIAL HISTORY: Patient is an active smoker and has been all her life, typically one pack a day. No significant alcohol use. FAMILY HISTORY: Is no longer relevant, considering her age, but mother had throat cancer. Father had heart disease and cancer. Sister has heart disease. REVIEW OF SYSTEMS: She denies any recent fever, chills, nausea, vomiting or diarrhea. She reports reasonably good oral intake. No chest pain. No palpitations. She has been dizzy, but did not have any marysol syncopal events. She has chronic dyspnea, but her principal exertional limitation has to do with pains in lower extremity and her back. No abdominal pain. No nausea. No vomiting. The rest is as per history of present illness (HPI) or negative. PHYSICAL EXAMINATION: VITAL SIGNS: Blood pressure this morning was recorded as 143/75 supine, 140/77 sitting, and 116/62 standing. Saturation was 96% on room air. Heart rate 77 beats per minute, atrial fibrillation and she was afebrile. Weight was recorded as 53.5 kg on December 28, 2020. GENERAL: She is an elderly, frail woman, does not appear to be in any distress, alert, oriented and appropriate. She is clearly having trouble with recall of recent events. NECK: Jugular venous pressure (JVP) is difficult to court of appeals judge, but based on my evaluation, it is not elevated. There are thin, bilateral carotid bruit. LUNGS: Reasonably clear with good air movement. HEART EXAM: Reveals currently irregular rhythm. There is a murmur over the aortic valve, not more than 1, maybe 2/6 in intensity. There is also a blowing murmur at the apex. I do not appreciate obvious gallop. ABDOMEN: Soft. She appears actually quite cachectic. LOWER EXTREMITIES: Free of edema. I do not palpate her peripheral pulses. No ___ defects. NEUROLOGIC: She moves all four extremities and there are no obvious focal deficits. LABORATORIES: Normal CBC. Normal basic metabolic panel with the exception of glucose 153. Magnesium was 1.7. She has several troponins that have been negative. N-terminal pro-BNP was 5500 on admission. EKG reveals presence of underlying left bundle branch block with atrial fibrillation. An echocardiogram that I interpreted reveals preserved left ventricular size with septal wall motion abnormality consistent with left bundle branch block (LBBB), mild hypokinesis and overall estimated ejection fraction (EF) 40-45%. There is aortic sclerosis but no stenosis, mild to moderate mitral insufficiency, likely normal central venous pressure and I was not able to determine pulmonary artery pressure. I interrogated patient's loop recorder. There are no documented bradyarrhythmic events, but the threshold is pause more than 3 seconds or heart rate below 30 beats per minute. She is predominantly in atrial fibrillation with mostly controlled rate with occasional spikes and she alternates with episodes of sinus bradycardia with very long first degree arterioventricular (AV) block. The same findings were noted on telemetry. IMAGING DATA: She had CT angiography of the chest on admission that revealed no evidence for pulmonary embolism and evidence for cardiomegaly. No aneurysms are noted. ASSESSMENT AND PLAN: Mrs. Marie is a very complicated patient that is difficult to manage. Partially it is due to the nature of the disease, partially it is due to compliance issue and worsening memory. As far as the dizziness is concerned, which is the principal question that I was asked, even though she carries a diagnosis of congestive heart failure, I currently do not appreciate any volume overload. Her diuretics were already discontinued and I think it is acceptable to hold them for a day or two. I do not believe that bisoprolol can be discontinued, as she gets quite tachycardic during episodes of atrial fibrillation, but, because she remains to have significant orthostatic symptoms, I do believe that it is appropriate to introduce low dose midodrine 2.5 mg twice a day as a trial. Provided it is beneficial and does not affect her other symptoms, I think that this can be continued. I plan to see patient in followup next week. It is conceivable that we will have to restart some of her diuretics, because she has recurrent problems with congestive heart failure. The interrogation of her loop recorder so far does not provide any evidence to support placement of a pacemaker, even though in the chronic perspective, I think it is likely it will eventually lead to one. As far as peripheral vascular disease is concerned, the pain in her lower extremities seems to be her dominant complaint. Currently, we do not have a vascular surgeon available for intervention and she has known chronically occluded popliteal artery with diffuse disease. Unfortunately, she also continues to smoke. She is anticoagulated with Xarelto and also takes aspirin. She is also on high dose lipid lowering medications. These will all be continued. I do not believe she is in acute risk of losing her extremity, but in the long run, that certainly remains a significant concern. Thank you for the consultation. Please contact Dr. Perez if further assistance is required tomorrow.
[2020-12-31 14:00] VITALS: BP 136/75
[2020-12-31] MEDS ORDERED: MIDO2.5T PO (14:17)
--- NOTE | 2020-12-31 14:31 | DS.PDOC ---
Discharge Summary General Date of Admission Dec 28, 2020 at 09:15 Date of Discharge 12/31/20 Discharge Summary DISCHARGE DIAGNOSES: 1. Orthostatic hypotension 2. MAK 3. COPD 4. Type II diabetes 5. Left bundle branch block 6. Bradycardia COMPLICATIONS/CHIEF COMPLAINT: Congestive Heart Disease. HISTORY OF PRESENT ILLNESS: HOSPITAL COURSE: Ms. Marie, 75-year-old female with past medical history of chronic neck and low back pain, type 2 diabetes mellitus, hypertension, dyslipidemia, paroxysmal atrial fibrillation, chronic left bundle branch block, diverticulosis, peripheral vascular disease who presented emergency room department with complaints of fatigue and feeling dizzy. This has been an ongoing problem but felt it worsened for the last several days prior to admission. An EKG was done that showed no acute ST/T wave changes. And troponin trend was negative. The EKG did show a prolonged FL interval. It was noted that she was being worked up as an outpatient for similar complaints and had a loop recorder in place. She was evaluated by the cardiology team (Dr. Carter) and loop recorder was interrogated which showed no acute events. With her prolonged FL interval she would need close follow-up with cardiology team will recommend further outpatient management. Patient is aware of this as well as her daughter. Her dizziness, may be also explained by the fact that she was orthostatic. She reported doubling the dose of her diuretics which may have contributed to her symptoms. She had felt that her symptoms were due to congestive heart failure exacerbation. She received IV fluids for this. It should be noted she does have severe peripheral vascular disease (with right leg stenting) which may be contributing to her symptoms. She was educated about being compliant with an appropriate diet with underlying diabetes and also to stop smoking. As per her daughter, patient is noncompliant. There is also high suspicion for dysautonomia secondary to her diabetes that may be contributing to her orthostasis. She was started on midodrine 2.5 mg twice daily which helped her orthostatics. Her diuretic will be held until she follows up with her practice administrator. She was also monitored on telemetry, overnight she had an episode of bradycardia when she was awake. However, once evaluated by cardiology there is no need for immediate pacemaker at this time. She was asked to check her rate before taking her beta-sarah. The benefits with her underlying congestive heart failure outweigh the risk of isolated episode of bradycardia. She was in favor of this and accepted the risks. She was asked to hold it if her heart rate is less than 60. She will follow up as an outpatient as per cardiology recommendations. On admission, she was noted to have acute kidney injury likely due to the fact that she had doubled her diuretics. This had resolved with IV fluids that she received. An echocardiogram was also done to ensure that there is no ventricular or valvular pathology contributing to her dizziness. This showed a left ventricular ejection fraction 40 to 45%. There was global hypokinesis and septal motion abnormality consistent with left bundle branch block. There was severe biatrial enlargement. There is aortic sclerosis but no stenosis or insufficiency appreciated. There was mild to moderate mitral insufficiency. She will be following up with cardiology team upon discharge. The time of discharge, she had no complaints of dizziness and she was back to her baseline. She was educated about appropriate measures to take for orthostatic hypotension. Of note, prior to discharge her blood glucose was 69 this had resolved after her lunch. She was instructed to check her blood glucose at home and to resume her oral diabetic medications. If her blood glucose was uncontrolled she was asked to call her primary care physician for appropriate adjustments and management. DISCHARGE MEDICATIONS: Please see below. ALLERGIES: Please see below. PHYSICAL EXAMINATION ON DISCHARGE: VITAL SIGNS: Please see below. General: Lying in bed, no acute distress Head/Neck/Throat: Trachea midline, mucous membranes moist Eyes: Sclera anicteric, PERRLA Thorax: Normal respiratory effort on room air, lungs clear to auscultation bilaterally, no wheezes/rales/rhonchi Cardiovascular: Normal rate, regular rhythm, normal S1, S2; no S3, S4, rubs/gallops/murmurs Abdomen: Bowel sounds present, soft/nontender/nondistended Genitourinary: No CVA tenderness, no Benitez in place Musculoskeletal: Moving all extremities, no edema Skin: Warm, dry Neurologic: AAOx3, speech fluent and goal-directed, no focal deficits, grossly intact LABORATORY DATA: Please see below. IMAGING: CT ANGIO CHEST FINDINGS: There is good opacification in the pulmonary arterial tree. There is no evidence of vessel cut off or filling defect to suggest pulmonary embolus. Homogeneous opacity is seen in the thoracic aorta. There is no evidence of aneurysm or dissection. There is no evidence of pleural or pericardial effusion. There is moderate cardiac enlargement again noted unchanged. There is reflux of opacified blood from the right atrium into the hepatic segment of the vena cava again noted. This is also unchanged but compatible with right heart failure. There are surgical clips in the gallbladder fossa. Lung window settings demonstrate no infiltrate, mass, or atelectasis. Vascular calcification is noted. In the upper abdomen, there is an intrarenal 3 mm calculus in the upper pole of the left kidney. No hydronephrosis. IMPRESSION: No CT evidence of pulmonary embolus. Moderate cardiac enlargement with evidence of right heart failure again noted. Post cholecystectomy. Intrarenal calculus upper pole left kidney. PROGNOSIS: Good ACTIVITY: As tolerated DIET: Cardiac and diabetic diet DISCHARGE INSTRUCTIONS: 1. Follow-up with primary care physician and practice administrator within 5 to 7 days per DISCHARGE CONDITION: Stable TIME SPENT ON DISCHARGE: 30 minutes. Vital Signs/I&Os Vital Signs Date Time Temp Pulse Resp B/P (MAP) Pulse Ox O2 Delivery O2 Flow Rate FiO2 12/31/20 09:00 68 120/72 (88) 67 122/78 (93) 73 118/72 (87) 74 120/70 (87) 12/31/20 07:02 98.0 20 96 Room Air I&O- Last 24 Hours up to 6 AM 12/31/20 06:00 Intake Total 2840 ml Balance 2840 ml Laboratory Data Labs 24H Laboratory Tests 2 12/30/20 16:38: Bedside Glucose (Misc Panel) 313H 12/30/20 20:13: Bedside Glucose (Misc Panel) 187H 12/31/20 07:00: Bedside Glucose (Misc Panel) 250H 12/31/20 11:51: Bedside Glucose (Misc Panel) 69L FSBS Laboratory Tests Test 12/30/20 16:38 12/30/20 20:13 12/31/20 07:00 12/31/20 11:51 Range/Units Bedside Glucose (Misc Panel) 313 187 250 69 83-110 MG/DL Microbiology Microbiology 12/28/20 Blood Culture - Preliminary, Resulted No Growth after 72 hours. All specime... 12/28/20 Respiratory Virus Panel (PCR) ([facility]) - Final, Complete 12/28/20 Blood Culture - Preliminary, Resulted No Growth after 72 hours. All specime... Discharge Medications Scheduled Atorvastatin Calcium (Atorvastatin Calcium) 40 Mg Tablet, 40 MG PO QHS, (Reported) Bisoprolol Fumarate (Bisoprolol Fumarate) 5 Mg Tablet, 2.5 MG PO QHS, (Reported) HOLD IF HR IS LESS THAN 60 Cyclobenzaprine HCl (Cyclobenzaprine HCl) 10 Mg Tablet, 10 MG PO BID, (Reported) Ergocalciferol (Vitamin D2) (Vitamin D2) 50,000 Units Cap, 50,000 UNITS PO QMONTH, (Reported) TAKES ON THE 1ST OF THE MONTH Estradiol (Estrace) 42.5 Gm Cream.appl, 0.25 GM VA QHS, (Reported) APPLY TO PERIURETHRAL AREA Ferrous Sulfate (Ferrous Sulfate) 325 Mg Tablet.dr, 325 MG PO DAILY, (Reported) Glipizide (Glipizide ER) 10 Mg Tab.er.24, 10 MG PO BID, (Reported) Lansoprazole (Lansoprazole) 30 Mg Capsule.dr, 30 MG PO BID, (Reported) Levothyroxine Sodium (Synthroid) 50 Mcg Tablet, 50 MCG PO QAM, (Reported) Magnesium Oxide (Magnesium Oxide) 400 Mg Tablet, 400 MG PO DAILY, (Reported) Melatonin (Melatonin) 5 Mg Tablet, 5 MG PO QHS, (Reported) TAKES WITH 10MG TO MAKE 15MG Melatonin (Melatonin) 10 Mg Tablet, 10 MG PO QHS, (Reported) TAKES WITH 5MG TO MAKE 15MG Metformin HCl (Metformin HCl) 500 Mg Tab, 500 MG PO BID, (Reported) Midodrine HCl (Midodrine HCl) 2.5 Mg Tablet, 2.5 MG PO BID Montelukast Sodium (Montelukast Sodium) 10 Mg Tablet, 10 MG PO QHS, (Reported) Polyethylene Glycol 3350 (Miralax) 17 Gm Powd.pack, 17 GM PO DAILY, (Reported) MIXES WITH BENEFIBER Repaglinide (Repaglinide) 1 Mg Tablet, 0.5 MG PO TID, (Reported) Rivaroxaban (Xarelto) 20 Mg Tablet, 20 MG PO QPM, (Reported) Sucralfate (Sucralfate) 1 Gm Tablet, 1 GM PO ACHS, (Reported) Venlafaxine HCl (Venlafaxine HCl ER) 75 Mg Cap, 75 MG PO QHS, (Reported) Wheat Dextrin (Benefiber) 1 Each Powd.pack, 1 POW PO DAILY, (Reported) MIXES WITH MIRALAX Scheduled PRN Albuterol Sulf (Albuterol Sulfate) 2.5 Mg/3 Ml Vial.neb, 2.5 MG INH Q4H PRN for SHORTNESS OF BREATH, (Reported) Albuterol Sulfate (Proair Hfa) 8.5 Gm Hfa.aer.ad, 2 PUFF INH QID PRN for SHORTNESS OF BREATH, (Reported) Fluticasone Propionate (Fluticasone Propionate) 16 Gm [place].susp, 2 SPRAYS NA DAILY PRN for NASAL CONGESTION, (Reported) Pramipexole Di-HCl (Mirapex) 0.125 Mg Tablet, 0.25 MG PO QHS PRN for RESTLESSNESS, (Reported) Silodosin (Rapaflo) 8 Mg Capsule, 8 MG PO DAILY PRN for URINE RETENTION, (Reported) Allergies Coded Allergies: amitriptyline (Verified Allergy, Unknown, 07/27/20) balsam woodrow (Verified Allergy, Unknown, 07/27/20) bismuth subgallate (Verified Allergy, Unknown, 07/27/20) caffeine (Verified Allergy, Unknown, 07/27/20) doxycycline (Verified Allergy, Unknown, 07/27/20) fentanyl (Verified Allergy, Unknown, 07/27/20) gabapentin (Verified Allergy, Unknown, 07/27/20) lisinopril (Verified Allergy, Unknown, 07/27/20) mineral oil (Verified Allergy, Unknown, 07/27/20) nabumetone (Verified Allergy, Unknown, 07/27/20) pramoxine (Verified Allergy, Unknown, 07/27/20) propoxyphene (Verified Allergy, Unknown, 07/27/20) resorcinol (Verified Allergy, Unknown, 07/27/20) starch (Verified Allergy, Unknown, 07/27/20) suture (Verified Allergy, Unknown, PERMANENT SUTURES, 12/28/20) zinc oxide (Verified Allergy, Unknown, 07/27/20) MERNA HAYES M.D. Dec 31, 2020 14:29
== END 2020-12-31 16:01 | disposition home health service (06) | DRG 312 ==
LOC: M ED 09:14 → M ED INP 09:15 → OBSVTOIN 09:15 → ENRESERV 15:45 → M MSPAV 16:53
PROVIDERS: ADMIT Internal Medicine; ATTEND Internal Medicine
DX: I95.1 Orthostatic hypotension (principal); N17.9 Acute kidney failure, unspecified; I50.42 Chronic combined systolic (congestive) and diastolic (congestive) heart failure; R64 Cachexia; J44.9 Chronic obstructive pulmonary disease, unspecified; E11.51 Type 2 diabetes mellitus with diabetic peripheral angiopathy without gangrene; I44.7 Left bundle-branch block, unspecified; R00.1 Bradycardia, unspecified; M54.2 Cervicalgia; M54.50 Low back pain, unspecified; I48.0 Paroxysmal atrial fibrillation; K57.90 Diverticulosis of intestine, part unspecified, without perforation or abscess without bleeding; I11.0 Hypertensive heart disease with heart failure; R42 Dizziness and giddiness; I08.0 Rheumatic disorders of both mitral and aortic valves; F41.9 Anxiety disorder, unspecified; E78.5 Hyperlipidemia, unspecified; R53.83 Other fatigue; F03.90 Unspecified dementia, unspecified severity, without behavioral disturbance, psychotic disturbance, mood disturbance, and anxiety; I25.10 Atherosclerotic heart disease of native coronary artery without angina pectoris; E11.43 Type 2 diabetes mellitus with diabetic autonomic (poly)neuropathy; F32.9 Major depressive disorder, single episode, unspecified; E03.9 Hypothyroidism, unspecified; R94.31 Abnormal electrocardiogram [ECG] [EKG]; F17.210 Nicotine dependence, cigarettes, uncomplicated; K21.9 Gastro-esophageal reflux disease without esophagitis; Z91.19 Patient's noncompliance with other medical treatment and regimen; Z79.899 Other long term (current) drug therapy; Z79.890 Hormone replacement therapy; Z79.84 Long term (current) use of oral hypoglycemic drugs; Z79.01 Long term (current) use of anticoagulants; Z88.8 Allergy status to other drugs, medicaments and biological substances; Z88.1 Allergy status to other antibiotic agents; Z91.048 Other nonmedicinal substance allergy status; Z90.49 Acquired absence of other specified parts of digestive tract

== ENCOUNTER 2021-03-22 10:18 | Inpatient (IN) | payer MEDICARE, BC ==
[~2021-03-22] VITALS: Ht 167.6 cm; Wt 52.8 kg
[~2021-03-22 10:18] MED LIST changes: +CLIN-250 PO; -CLIN300C6 PO; +DICY20TA11 PO; +MIDO2.5T PO; +SUCR1TA PO
[2021-03-22] MEDS ORDERED: DICY20TA11 PO (10:43)
[2021-03-22] MEDS ORDERED: AMOX875T2 PO (10:43)
[2021-03-22] MEDS ORDERED: FURO40TA2 PO (10:43)
[2021-03-22] MEDS ORDERED: FLUC150T PO (10:43)
[2021-03-22] MEDS ORDERED: METO10TA2 PO (10:43)
[2021-03-22 11:18] LABS: BASO # 0.1 10^3/uL (0.0-0.2); BASO % 0.7 % (0.0-1.0); EOS # 0.1 10^3/uL (0.0-0.5); EOS % 0.7 % (0.0-3.0); HEMATOCRIT 39.9 % (36.0-47.0); HEMOGLOBIN 11.6 g/dl (12.0-15.5); LYMPH # 0.9 10^3/uL (1.5-5.0); LYMPH % 13.1 % (24.0-44.0); MEAN CORPUSCULAR HEMOGLOBIN 25.9 pg (27.0-33.0); MEAN CORPUSCULAR HGB CONC 29.1 g/dl (32.0-36.5); MEAN CORPUSCULAR VOLUME 89.1 fl (80.0-96.0); MONO # 0.8 10^3/uL (0.0-0.8); MONO % 11.6 % (2.0-8.0); NEUTROPHILS # 5.1 10^3/uL (1.5-8.5); NEUTROPHILS % 73.6 % (36.0-66.0); PLATELET COUNT, AUTOMATED 259 10^3/uL (150-450); RED BLOOD COUNT 4.48 10^6/uL (4.00-5.40); WHITE BLOOD COUNT 6.9 10^3/uL (4.0-10.0)
[2021-03-22 11:45] LABS: CALCIUM LEVEL 9.3 MG/DL (8.8-10.2); CREATININE FOR GFR 0.98 MG/DL (0.55-1.30); GLOMERULAR FILTRATION RATE 59.1 (>39); POTASSIUM SERUM 4.1 MEQ/L (3.5-5.1)
[2021-03-22] MEDS ORDERED: MAALOX 30 ML SUSP *UDC PO PRN (15:55)
[2021-03-22] MEDS ORDERED: ACETAMINOPHEN TAB 650MG DOSE (2X325MG) PO PRN (15:55)
[2021-03-22] MEDS ORDERED: MOM 30ML SUSPENSION UDC PO PRN (15:55)
[2021-03-22] MEDS: MIDODRINE 2.5 MG TAB PO SCH (16:00)
[2021-03-22] MEDS ORDERED: ATOR1TAB21 PO (16:14)
[2021-03-22] MEDS ORDERED: OXYC7.5T3 PO (16:29)
[2021-03-22] MEDS ORDERED: HOME MED LIST COMPLETE! XX SCH (16:35)
[2021-03-22] MEDS ORDERED: ALBUTEROL 90 MCG/ACT 8GM HFA INHALER INH PRN (16:35)
[2021-03-22] MEDS ORDERED: PRAMIPEXOLE (MIRAPEX) 0.125 MG TAB PO PRN (16:35)
[2021-03-22] MEDS ORDERED: DEXTROSE 50% 50 ML SYRINGE IV PRN (16:45)
[2021-03-22] MEDS ORDERED: GLUCAGON INJ 1MG VIAL SC PRN (16:45)
[2021-03-22] MEDS ORDERED: GLUCOSE 4GM CHEW TABLET PO PRN (16:45)
[2021-03-22] MEDS: FUROSEMIDE 40MG/4ML VIAL (J1940) IV SCH (17:29)
[2021-03-22] MEDS: CYCLOBENZAPRINE 10MG TABLET PO SCH ×2 (17:29→20:57)
[2021-03-22] MEDS: HumaLOG INSULIN (NovoLOG) PER UNIT SC SCH (17:30)
[2021-03-22] MEDS ORDERED: RIVAROXABAN 15 MG TAB (XARELTO) PO SCH (18:00)
[2021-03-22 20:12] VITALS: BP 139/81
[2021-03-22 20:58] VITALS: BP 139/81
[2021-03-22] MEDS ORDERED: HumaLOG INSULIN (NovoLOG) PER UNIT SC SCH (21:00)
[2021-03-22] MEDS ORDERED: VENLAFAXINE **XR** 75MG CAPSULE PO SCH (21:00)
[2021-03-22] MEDS ORDERED: ATORVASTATIN 20 MG TAB PO SCH (21:00)
[2021-03-22] MEDS ORDERED: BISOPROLOL FUM 2.5 MG PER 1/2TAB PO SCH (21:00)
[2021-03-22] MEDS ORDERED: MONTELUKAST 10 MG TAB PO SCH (21:00)
[2021-03-22] MEDS ORDERED: METOCLOPRAMIDE 10 MG TAB PO SCH (21:00)
[2021-03-22 22:00] LABS: INR 1.65; PROTHROMBIN TIME 19.9 SECONDS (12.7-14.5)
[2021-03-22 22:01] LABS: PARTIAL THROMBOPLASTIN TIME 34.9 SECONDS (25.9-37.0)
[2021-03-22] MEDS: ANEXSIA, NORCO 7.5MG/325MG TABLET(HYDROCODONE/APAP) PO PRN (22:34)
[2021-03-23] MEDS: FUROSEMIDE 40MG/4ML VIAL (J1940) IV SCH ×3 (01:19→17:00)
[2021-03-23] MEDS: ANEXSIA, NORCO 7.5MG/325MG TABLET(HYDROCODONE/APAP) PO PRN ×2 (05:08→11:44)
[2021-03-23 06:00] VITALS: BP 134/72
[2021-03-23] MEDS ORDERED: LEVOTHYROXINE 50MCG TABLET (0.05MG) PO SCH (06:00)
[2021-03-23] MEDS: HumaLOG INSULIN (NovoLOG) PER UNIT SC SCH ×3 (07:30→17:30)
[2021-03-23] MEDS: MIDODRINE 2.5 MG TAB PO SCH ×2 (08:00→16:15)
[2021-03-23] MEDS ORDERED: FERROUS SULFATE 325MG TAB PO SCH (09:00)
[2021-03-23] MEDS ORDERED: MIRALAX *UNIT DOSE* 17GM PACKET PO SCH (09:00)
[2021-03-23] MEDS ORDERED: MAGNESIUM OXIDE 400MG TAB (MAG-OX) PO SCH (09:00)
[2021-03-23 09:32] LABS: BASO % 0.6 % (0.0-1.0); EOS # 0.1 10^3/uL (0.0-0.5); EOS % 1.2 % (0.0-3.0); HEMATOCRIT 36.2 % (36.0-47.0); HEMOGLOBIN 10.8 g/dl (12.0-15.5); LYMPH % 15.1 % (24.0-44.0); MEAN CORPUSCULAR HGB CONC 29.8 g/dl (32.0-36.5); MONO # 1.2 10^3/uL (0.0-0.8); NEUTROPHILS # 4.2 10^3/uL (1.5-8.5); NEUTROPHILS % 64.8 % (36.0-66.0); PLATELET COUNT, AUTOMATED 242 10^3/uL (150-450); RED BLOOD COUNT 4.16 10^6/uL (4.00-5.40); WHITE BLOOD COUNT 6.5 10^3/uL (4.0-10.0)
[2021-03-23 10:01] LABS: ALBUMIN 2.9 GM/DL (3.2-5.2); BILIRUBIN,TOTAL 0.6 MG/DL (0.2-1.0); CALCIUM LEVEL 9.1 MG/DL (8.8-10.2); CREATININE FOR GFR 0.99 MG/DL (0.55-1.30); GLOMERULAR FILTRATION RATE 58.4 (>39); MAGNESIUM LEVEL 1.7 MG/DL (1.8-2.4); POTASSIUM SERUM 3.9 MEQ/L (3.5-5.1); TOTAL PROTEIN 6.3 GM/DL (6.4-8.2)
[2021-03-23] MEDS: CYCLOBENZAPRINE 10MG TABLET PO SCH ×2 (10:58→16:15)
[2021-03-23] MEDS: MAG SULF 1GM/100ML (MAG RUN) 1 GM in IV 1 EA IV SCH ×2 (10:59→12:53)
[2021-03-23 14:30] LABS: C REACTIVE PROTEIN QUANTITATIV 0.74 MG/DL (0.00-0.30)
[2021-03-23 14:56] LABS: ERYTHROCYTE SEDIMENTATION RATE 13 mm/hr (0-30)
[2021-03-23 15:12] LABS: CK-MB VALUE MASS < 1.0 NG/ML (<3.6); CPK CREATINE PHOSPHOKINASE 24 U/L (26-192); MB/CK RELATIVE INDEX 4.17 (< OR =4)
[2021-03-23] MEDS ORDERED: FURO40TA2 PO (15:22)
[2021-03-23] MEDS ORDERED: CYCL5TAB PO (15:22)
[2021-03-23] MEDS ORDERED: XARE15TA PO (15:22)
[2021-03-23] MEDS ORDERED: MIDO2.5T PO (15:22)
[2021-03-23] MEDS ORDERED: SPIR-10 PO (15:34)
[2021-03-23] MEDS ORDERED: FUROSEMIDE 40MG/4ML VIAL (J1940) IV ONE (15:35)
== END 2021-03-23 18:01 | disposition home health service (06) | DRG 291 ==
LOC: M ED 10:18 → M ED INP 15:54 → M MSPAV 20:13
PROVIDERS: ADMIT Family Medicine; ATTEND Family Medicine
DX: I11.0 Hypertensive heart disease with heart failure (principal); I50.43 Acute on chronic combined systolic (congestive) and diastolic (congestive) heart failure; E11.9 Type 2 diabetes mellitus without complications; I48.0 Paroxysmal atrial fibrillation; E78.5 Hyperlipidemia, unspecified; M54.2 Cervicalgia; M54.50 Low back pain, unspecified; F17.200 Nicotine dependence, unspecified, uncomplicated; J44.9 Chronic obstructive pulmonary disease, unspecified; E03.9 Hypothyroidism, unspecified; F41.9 Anxiety disorder, unspecified; K21.9 Gastro-esophageal reflux disease without esophagitis; F32.A Depression, unspecified; Z79.84 Long term (current) use of oral hypoglycemic drugs; Z90.49 Acquired absence of other specified parts of digestive tract; Z79.01 Long term (current) use of anticoagulants; Z79.899 Other long term (current) drug therapy; Z88.1 Allergy status to other antibiotic agents; Z88.8 Allergy status to other drugs, medicaments and biological substances

== ENCOUNTER → 2021-09-09 | Outpatient (CLI) | payer MEDICARE, MEDICAID ==
[~2021-09-09] MED LIST changes: +ALBU2.5V10 INH; -ALBU83IN INH; +AMOX875T2 PO; +ATOR1TAB21 PO; +BACITAB PO; +CLEO300C2 PO; +CYCL5TAB PO; -DICY20TA11 PO; +DICY20TA20 PO; +FLUC150T9 PO; +FURO40TA2 PO; +LOSA25TA13 PO; -LOSA25TA14 PO; +LOSA50TA28 PO; -LOSA50TA88 PO; +METR-265 PO; -MONT10TA10 PO; +MONT10TA97 PO; +OXYC7.5T3 PO; +SPIR-10 PO; +XARE15TA PO
== END ==
LOC: M RAD 08:54
PROVIDERS: ATTEND Student in an Organized Health Care Education/Training Program
DX: R59.1 Generalized enlarged lymph nodes (principal)

== ENCOUNTER 2021-09-10 09:02 | Inpatient (IN) | payer MEDICARE, MEDICAID ==
[~2021-09-10] VITALS: Ht 162.6 cm; Wt 53.5 kg
[~2021-09-10 09:02] MED LIST changes: -BACITAB PO; -CLEO300C2 PO; -METR-265 PO
[2021-09-10 10:07] LABS: BASO # 0.1 10^3/uL (0.0-0.2); BASO % 0.3 % (0.0-1.0); EOS % 0.3 % (0.0-3.0); HEMATOCRIT 36.7 % (36.0-47.0); HEMOGLOBIN 11.9 g/dl (12.0-15.5); LYMPH # 0.9 10^3/uL (1.5-5.0); MEAN CORPUSCULAR HEMOGLOBIN 31.4 pg (27.0-33.0); MEAN CORPUSCULAR HGB CONC 32.4 g/dl (32.0-36.5); MEAN CORPUSCULAR VOLUME 96.8 fl (80.0-96.0); MONO % 12.8 % (2.0-8.0); NEUTROPHILS # 11.8 10^3/uL (1.5-8.5); NEUTROPHILS % 80.1 % (36.0-66.0); PLATELET COUNT, AUTOMATED 213 10^3/uL (150-450); RED BLOOD COUNT 3.79 10^6/uL (4.00-5.40); WHITE BLOOD COUNT 14.7 10^3/uL (4.0-10.0)
[2021-09-10 10:27] LABS: ERYTHROCYTE SEDIMENTATION RATE 48 mm/hr (0-30)
[2021-09-10 10:31] LABS: MONO # 1.9 10^3/uL (0.0-0.8)
[2021-09-10] MEDS ORDERED: ISOVUE-370 76% 100ML VIAL As Ordered ONE (10:32)
[2021-09-10 10:34] LABS: MONO REFLEX EBV VCA IgM NEGATIVE (NEGATIVE)
[2021-09-10 10:37] LABS: BLOOD UREA NITROGEN 36 MG/DL (7-18); CALCIUM LEVEL 8.9 MG/DL (8.8-10.2); CARBON DIOXIDE LEVEL 30 MEQ/L (21-32); CHLORIDE LEVEL 97 MEQ/L (98-107); CREATININE FOR GFR 1.33 MG/DL (0.55-1.30); GLOMERULAR FILTRATION RATE 41.4 (>39); GLUCOSE, FASTING 259 MG/DL (70-100); POTASSIUM SERUM 5.7 MEQ/L (3.5-5.1); SODIUM LEVEL 133 MEQ/L (136-145)
[2021-09-10] MEDS ORDERED: AMPICILLIN SOD/SULBACTAM SOD 3 GM in D5W MINI-BAG PLUS 100 ML IV ONE (11:40)
[2021-09-10] MEDS ORDERED: metroNIDAZOLE 500 MG in IV 1 EA IV ONE (11:40)
[2021-09-10] MEDS ORDERED: CALCIUM GLUCONATE 1,000 MG in D5W MINI-BAG PLUS 100 ML IV ONE (11:50)
[2021-09-10] MEDS ORDERED: NS 1,000 ML IV ONE (11:50)
[2021-09-10] MEDS ORDERED: ACETAMINOPHEN TAB 650MG DOSE (2X325MG) PO PRN (12:15)
[2021-09-10] MEDS ORDERED: GLUCAGON INJ 1MG VIAL SC PRN (12:15)
[2021-09-10] MEDS ORDERED: MORPHINE 4 MG/ML 1ML VIAL/SYRINGE IV PRN (12:15)
[2021-09-10] MEDS ORDERED: GLUCOSE 4GM CHEW TABLET PO PRN (12:15)
[2021-09-10] MEDS ORDERED: DEXTROSE 50% 50 ML SYRINGE IV PRN (12:15)
[2021-09-10] MEDS ORDERED: FURO20TA2 PO (12:41)
[2021-09-10] MEDS ORDERED: XARE20TA PO (12:41)
[2021-09-10] MEDS ORDERED: RAPA8CAP4 PO (12:41)
[2021-09-10] MEDS ORDERED: SPIR-10 PO (12:41)
[2021-09-10] MEDS ORDERED: CYCL5TAB PO (12:41)
[2021-09-10] MEDS ORDERED: MIDO2.5T PO (12:41)
[2021-09-10] MEDS ORDERED: OXYC1TAB23 PO (12:41)
[2021-09-10] MEDS ORDERED: HOME MED LIST COMPLETE! XX SCH (12:45)
[2021-09-10] MEDS ORDERED: D5W/0.45% SODIUM CHLORIDE 1,000 ML IV SCH (13:00)
[2021-09-10 13:12] LABS: CALCIUM LEVEL 8.7 MG/DL (8.8-10.2); CREATININE FOR GFR 1.22 MG/DL (0.55-1.30); GLOMERULAR FILTRATION RATE 45.7 (>39); POTASSIUM SERUM 4.3 MEQ/L (3.5-5.1)
[2021-09-10 13:27] LABS: RSV AMPLIFICATION NEGATIVE (NEGATIVE)
[2021-09-10] MEDS: MIDODRINE 2.5 MG TAB PO SCH (14:00)
[2021-09-10] MEDS ORDERED: ALBUTEROL 90 MCG/ACT 8GM HFA INHALER INH PRN (14:20)
[2021-09-10 15:39] VITALS: BP 147/82
[2021-09-10] MEDS: LACTOBACILLUS ACIDOPHILUS CAP (BACID) PO SCH (17:38)
[2021-09-10] MEDS: PERCOCET 5MG/325MG TAB PO SCH ×2 (17:38→20:10)
[2021-09-10] MEDS: CLINDAMYCIN 600 MG in IV 1 EA IV SCH (17:39)
[2021-09-10] MEDS: INSULIN LISPRO (NovoLOG) PER UNIT SC SCH ×2 (17:43→20:09)
[2021-09-10] MEDS: BISOPROLOL FUM 2.5 MG PER 1/2TAB PO SCH ×2 (20:09→20:17)
[2021-09-10] MEDS: ATORVASTATIN 20 MG TAB PO SCH (20:09)
[2021-09-10] MEDS: MONTELUKAST 10 MG TAB PO SCH (20:09)
[2021-09-10] MEDS: PANTOPRAZOLE 40MG TAB (PROTONIX) PO SCH (20:09)
[2021-09-10] MEDS: VENLAFAXINE **XR** 75MG CAPSULE PO SCH (20:09)
[2021-09-10] MEDS: METOCLOPRAMIDE 10MG TAB PO SCH (20:10)
[2021-09-10] MEDS: PRAMIPEXOLE 0.25 MG TAB PO SCH (20:10)
[2021-09-10] MEDS: CYCLOBENZAPRINE 5MG TABLET PO SCH (20:10)
[2021-09-10] MEDS ORDERED: AMPICILLIN SOD/SULBACTAM SOD 3 GM in D5W MINI-BAG PLUS 100 ML IV SCH (21:00)
[2021-09-10] MEDS ORDERED: metFORMIN (GLUCOPHAGE) 500MG TAB PO SCH (21:00)
[2021-09-10] MEDS ORDERED: glipiZIDE XL 5 MG TABCR PO SCH (21:00)
[2021-09-10] MEDS ORDERED: FUROSEMIDE 20 MG TAB PO SCH (21:00)
[2021-09-10 22:00] VITALS: BP 110/60
[2021-09-11] MEDS: CLINDAMYCIN 600 MG in IV 1 EA IV SCH ×3 (00:13→12:27)
[2021-09-11] MEDS ORDERED: PERCOCET 5MG/325MG TAB PO ONE (00:55)
[2021-09-11] MEDS: MIDODRINE 2.5 MG TAB PO SCH ×2 (05:26→14:00)
[2021-09-11] MEDS: LEVOTHYROXINE 50MCG TABLET (0.05MG) PO SCH (05:26)
[2021-09-11 06:50] VITALS: BP 136/69
[2021-09-11] MEDS: INSULIN LISPRO (NovoLOG) PER UNIT SC SCH ×4 (07:51→21:00)
[2021-09-11] MEDS: glipiZIDE XL 5 MG TABCR PO SCH ×2 (07:52→17:02)
[2021-09-11] MEDS: MAGNESIUM OXIDE 400MG TAB (MAG-OX) PO SCH (07:52)
[2021-09-11] MEDS: FUROSEMIDE 20 MG TAB PO SCH ×2 (07:52→17:01)
[2021-09-11] MEDS: LACTOBACILLUS ACIDOPHILUS CAP (BACID) PO SCH ×2 (07:53→17:02)
[2021-09-11] MEDS: PERCOCET 5MG/325MG TAB PO SCH ×4 (07:53→21:35)
[2021-09-11] MEDS: PANTOPRAZOLE 40MG TAB (PROTONIX) PO SCH ×2 (07:53→21:33)
[2021-09-11] MEDS: SPIRONOLACTONE 25 MG TAB PO SCH (07:54)
[2021-09-11] MEDS: MIRALAX *UNIT DOSE* 17GM PACKET PO SCH (07:54)
[2021-09-11] MEDS: FERROUS SULFATE 325MG TAB PO SCH (07:54)
[2021-09-11] MEDS ORDERED: LEVOTHYROXINE 100MCG (0.1MG) 5ML SDV PF (SOLUTION FORM) IV SCH (09:00)
[2021-09-11] MEDS ORDERED: CLEO300C2 PO (09:28)
[2021-09-11] MEDS ORDERED: BACITAB PO (09:28)
[2021-09-11 10:30] LABS: BASO % 0.3 % (0.0-1.0); EOS # 0.1 10^3/uL (0.0-0.5); EOS % 0.6 % (0.0-3.0); HEMOGLOBIN 10.5 g/dl (12.0-15.5); LYMPH # 0.8 10^3/uL (1.5-5.0); LYMPH % 5.8 % (24.0-44.0); MEAN CORPUSCULAR HEMOGLOBIN 30.2 pg (27.0-33.0); MEAN CORPUSCULAR HGB CONC 31.8 g/dl (32.0-36.5); MEAN CORPUSCULAR VOLUME 94.8 fl (80.0-96.0); NEUTROPHILS # 10.8 10^3/uL (1.5-8.5); NEUTROPHILS % 77.7 % (36.0-66.0); PLATELET COUNT, AUTOMATED 201 10^3/uL (150-450); RED BLOOD COUNT 3.48 10^6/uL (4.00-5.40); WHITE BLOOD COUNT 13.9 10^3/uL (4.0-10.0)
[2021-09-11 10:50] LABS: ERYTHROCYTE SEDIMENTATION RATE 52 mm/hr (0-30)
[2021-09-11 10:51] LABS: C REACTIVE PROTEIN QUANTITATIV 12.9 MG/DL (0.00-0.30); CALCIUM LEVEL 8.4 MG/DL (8.8-10.2); CREATININE FOR GFR 1.29 MG/DL (0.55-1.30); GLOMERULAR FILTRATION RATE 42.9 (>39); POTASSIUM SERUM 4.3 MEQ/L (3.5-5.1)
[2021-09-11 10:54] LABS: MONO # 2.1 10^3/uL (0.0-0.8)
[2021-09-11 14:00] VITALS: BP 130/70
[2021-09-11] MEDS ORDERED: CALCIUM GLUCONATE 1,000 MG in D5W MINI-BAG PLUS 100 ML IV ONE (16:00)
[2021-09-11] MEDS ORDERED: MAG SULF 1GM/100ML (MAG RUN) 1 GM in IV 1 EA IV ONE (17:00)
[2021-09-11] MEDS ORDERED: RIVAROXABAN 20MG TAB (XARELTO) PO SCH (18:00)
[2021-09-11] MEDS: AMPICILLIN SOD/SULBACTAM SOD 3 GM in D5W MINI-BAG PLUS 100 ML IV SCH (18:36)
[2021-09-11] MEDS ORDERED: VANCOMYCIN HCL 1,000 MG, VIAL MATE ADAPTER 1 EACH in NS 250 ML IV SCH (20:45)
[2021-09-11] MEDS: PRAMIPEXOLE 0.25 MG TAB PO SCH (21:33)
[2021-09-11] MEDS: ATORVASTATIN 20 MG TAB PO SCH (21:33)
[2021-09-11] MEDS: MONTELUKAST 10 MG TAB PO SCH (21:33)
[2021-09-11 21:34] VITALS: BP 153/88
[2021-09-11] MEDS: BISOPROLOL FUM 2.5 MG PER 1/2TAB PO SCH (21:34)
[2021-09-11] MEDS: VENLAFAXINE **XR** 75MG CAPSULE PO SCH (21:34)
[2021-09-11] MEDS: CYCLOBENZAPRINE 5MG TABLET PO SCH (21:34)
[2021-09-11] MEDS: METOCLOPRAMIDE 10MG TAB PO SCH (21:34)
[2021-09-11 22:00] VITALS: BP 153/88
[2021-09-11] MEDS ORDERED: VANCOMYCIN HCL 1,000 MG, VIAL MATE ADAPTER 1 EACH in NS 250 ML IV ONE (22:00)
[2021-09-12 04:44] VITALS: BP 153/86
[2021-09-12] MEDS: AMPICILLIN SOD/SULBACTAM SOD 3 GM in D5W MINI-BAG PLUS 100 ML IV SCH (05:07)
[2021-09-12] MEDS: MIDODRINE 2.5 MG TAB PO SCH (05:08)
[2021-09-12] MEDS: LEVOTHYROXINE 50MCG TABLET (0.05MG) PO SCH (05:48)
[2021-09-12 06:11] LABS: BASO # 0.1 10^3/uL (0.0-0.2); BASO % 0.6 % (0.0-1.0); EOS # 0.1 10^3/uL (0.0-0.5); HEMATOCRIT 36.3 % (36.0-47.0); HEMOGLOBIN 11.7 g/dl (12.0-15.5); LYMPH # 1.1 10^3/uL (1.5-5.0); LYMPH % 9.2 % (24.0-44.0); MEAN CORPUSCULAR HEMOGLOBIN 30.5 pg (27.0-33.0); MEAN CORPUSCULAR HGB CONC 32.2 g/dl (32.0-36.5); MEAN CORPUSCULAR VOLUME 94.5 fl (80.0-96.0); MONO % 14.9 % (2.0-8.0); NEUTROPHILS # 9.1 10^3/uL (1.5-8.5); NEUTROPHILS % 73.8 % (36.0-66.0); PLATELET COUNT, AUTOMATED 241 10^3/uL (150-450); RED BLOOD COUNT 3.84 10^6/uL (4.00-5.40); WHITE BLOOD COUNT 12.2 10^3/uL (4.0-10.0)
[2021-09-12 06:38] LABS: CALCIUM LEVEL 9.6 MG/DL (8.8-10.2); CREATININE FOR GFR 1.18 MG/DL (0.55-1.30); GLOMERULAR FILTRATION RATE 47.5 (>39); POTASSIUM SERUM 4.6 MEQ/L (3.5-5.1)
[2021-09-12 06:51] LABS: MONO # 1.8 10^3/uL (0.0-0.8)
[2021-09-12] MEDS: FERROUS SULFATE 325MG TAB PO SCH (09:04)
[2021-09-12] MEDS: LACTOBACILLUS ACIDOPHILUS CAP (BACID) PO SCH (09:04)
[2021-09-12] MEDS: PANTOPRAZOLE 40MG TAB (PROTONIX) PO SCH (09:05)
[2021-09-12] MEDS: FUROSEMIDE 20 MG TAB PO SCH (09:05)
[2021-09-12] MEDS: glipiZIDE XL 5 MG TABCR PO SCH (09:05)
[2021-09-12] MEDS: MAGNESIUM OXIDE 400MG TAB (MAG-OX) PO SCH (09:06)
[2021-09-12] MEDS: SPIRONOLACTONE 25 MG TAB PO SCH (09:06)
[2021-09-12] MEDS: PERCOCET 5MG/325MG TAB PO SCH (09:06)
[2021-09-12] MEDS: INSULIN LISPRO (NovoLOG) PER UNIT SC SCH ×2 (09:07→12:20)
[2021-09-12] MEDS: MIRALAX *UNIT DOSE* 17GM PACKET PO SCH (09:07)
[2021-09-12] MEDS ORDERED: AMOX875T2 PO (09:17)
[2021-09-12 09:44] LABS: C REACTIVE PROTEIN QUANTITATIV 13.1 MG/DL (0.00-0.30)
[2021-09-12] MEDS ORDERED: CYCLOBENZAPRINE 5MG TABLET PO SCH (09:45)
[2021-09-12 10:09] LABS: ERYTHROCYTE SEDIMENTATION RATE 58 mm/hr (0-30)
[2021-09-12] MEDS ORDERED: AMPICILLIN SOD/SULBACTAM SOD 3 GM in D5W MINI-BAG PLUS 100 ML IV SCH (11:00)
[2021-09-12] MEDS ORDERED: METR-265 PO (11:03)
[2021-09-12] MEDS ORDERED: VANCOMYCIN HCL 750 MG, VIAL MATE ADAPTER 1 EACH in NS 250 ML IV SCH (12:00)
[2021-09-12] MEDS ORDERED: metFORMIN (GLUCOPHAGE) 500MG TAB PO SCH (18:00)
== END 2021-09-12 13:53 | disposition home or self-care (01) | DRG 155 ==
LOC: M ED 09:02 → M ED INP 12:08 → ENRESERV 14:24 → M MSPAV 15:39
PROVIDERS: ADMIT General Practice; ATTEND General Practice
DX: K11.20 Sialoadenitis, unspecified (principal); I50.42 Chronic combined systolic (congestive) and diastolic (congestive) heart failure; E87.1 Hypo-osmolality and hyponatremia; N17.9 Acute kidney failure, unspecified; E11.40 Type 2 diabetes mellitus with diabetic neuropathy, unspecified; M54.12 Radiculopathy, cervical region; K11.5 Sialolithiasis; I11.0 Hypertensive heart disease with heart failure; E78.5 Hyperlipidemia, unspecified; I48.0 Paroxysmal atrial fibrillation; I45.10 Unspecified right bundle-branch block; K57.90 Diverticulosis of intestine, part unspecified, without perforation or abscess without bleeding; E87.5 Hyperkalemia; Z90.49 Acquired absence of other specified parts of digestive tract; F17.210 Nicotine dependence, cigarettes, uncomplicated; R59.0 Localized enlarged lymph nodes; M54.14 Radiculopathy, thoracic region; Z79.84 Long term (current) use of oral hypoglycemic drugs; Z79.01 Long term (current) use of anticoagulants; Z79.899 Other long term (current) drug therapy; Z88.1 Allergy status to other antibiotic agents; Z88.8 Allergy status to other drugs, medicaments and biological substances

== ENCOUNTER 2022-03-14 08:21 | Observation (INO) | payer MEDICARE, MEDICAID ==
[~2022-03-14] VITALS: Ht 162.6 cm; Wt 57.9 kg
[~2022-03-14 08:21] MED LIST changes: +BACITAB PO; +CLEO300C2 PO; +MELA10TA14 PO; -MELA10TA6 PO; +METR-265 PO
[2022-03-14 09:55] LABS: BASO # 0.1 10^3/uL (0.0-0.2); BASO % 0.9 % (0.0-1.0); EOS % 0.1 % (0.0-3.0); HEMATOCRIT 34.6 % (36.0-47.0); HEMOGLOBIN 10.4 g/dl (12.0-15.5); LYMPH # 0.5 10^3/uL (1.5-5.0); LYMPH % 6.6 % (24.0-44.0); MEAN CORPUSCULAR HEMOGLOBIN 27.4 pg (27.0-33.0); MEAN CORPUSCULAR HGB CONC 30.1 g/dl (32.0-36.5); MEAN CORPUSCULAR VOLUME 91.1 fl (80.0-96.0); MONO # 1.5 10^3/uL (0.0-0.8); MONO % 18.1 % (2.0-8.0); NEUTROPHILS # 5.9 10^3/uL (1.5-8.5); NEUTROPHILS % 73.8 % (36.0-66.0); PLATELET COUNT, AUTOMATED 274 10^3/uL (150-450)
[2022-03-14 10:24] LABS: ALBUMIN 3.3 G/DL (3.2-5.2); BILIRUBIN,DIRECT 0.1 MG/DL (<0.4); BILIRUBIN,TOTAL 0.3 MG/DL (0.3-1.2); CREATININE FOR GFR 1.08 MG/DL (0.55-1.30); GLOMERULAR FILTRATION RATE 52.7 (>39); POTASSIUM SERUM 4.6 MMOL/L (3.5-5.1); TOTAL PROTEIN 6.7 G/DL (5.7-8.2)
[2022-03-14] MEDS ORDERED: NS 500 ML IV ONE (13:00)
[2022-03-14] MEDS ORDERED: GLUCAGON INJ 1MG VIAL SC PRN (14:40)
[2022-03-14] MEDS ORDERED: GLUCOSE 4GM CHEW TABLET PO PRN (14:40)
[2022-03-14] MEDS ORDERED: DEXTROSE 50% 50ML SYRINGE IV PRN (14:40)
[2022-03-14 14:41] LABS: RSV AMPLIFICATION NEGATIVE (NEGATIVE)
[2022-03-14] MEDS ORDERED: cefTRIAXone SOD 1 GM in D5W MINI-BAG PLUS 50 ML IV SCH (15:00)
[2022-03-14] MEDS ORDERED: VENTAER INH (15:02)
[2022-03-14] MEDS ORDERED: HOME MED LIST COMPLETE! XX SCH (15:05)
[2022-03-14 15:49] LABS: INR 1.19; PROTHROMBIN TIME 15.4 SECONDS (12.5-14.5)
[2022-03-14 15:50] LABS: PARTIAL THROMBOPLASTIN TIME 28.4 SECONDS (24.8-34.2)
[2022-03-14] MEDS: NS 1,000 ML IV SCH (15:57)
[2022-03-14] MEDS ORDERED: ALBUTEROL 90 MCG/ACT 8GM HFA INHALER INH PRN (17:15)
[2022-03-14] MEDS ORDERED: RIVAROXABAN 15MG TAB (XARELTO) PO SCH (18:00)
[2022-03-14] MEDS: MIDODRINE 2.5 MG TAB PO SCH (18:06)
[2022-03-14] MEDS: INSULIN LISPRO (NovoLOG) PER UNIT SC SCH (18:15)
[2022-03-14] MEDS: PERCOCET 5MG/325MG TAB PO PRN (18:35)
[2022-03-14] MEDS ORDERED: bisoproloL fumarate 5 MG TAB PO SCH (21:00)
[2022-03-14] MEDS ORDERED: MONTELUKAST 10 MG TAB PO SCH (21:00)
[2022-03-14] MEDS ORDERED: VENLAFAXINE **XR** 75MG CAPSULE PO SCH (21:00)
[2022-03-14] MEDS ORDERED: PRAMIPEXOLE (MIRAPEX) 0.125 MG TAB PO SCH (21:00)
[2022-03-14] MEDS ORDERED: RAMELTEON 8 MG TAB (ROZEREM) PO SCH (21:00)
[2022-03-14] MEDS ORDERED: METOCLOPRAMIDE 10MG TAB PO SCH (21:00)
[2022-03-14] MEDS: PANTOPRAZOLE 40MG TAB (PROTONIX) PO SCH (23:24)
[2022-03-14 23:25] VITALS: BP 143/60
[2022-03-15] MEDS: NS 1,000 ML IV SCH (02:09)
[2022-03-15] MEDS: PERCOCET 5MG/325MG TAB PO PRN (03:52)
[2022-03-15 05:49] LABS: HEMATOCRIT 31.5 % (36.0-47.0); HEMOGLOBIN 9.4 g/dl (12.0-15.5); MEAN CORPUSCULAR HEMOGLOBIN 27.3 pg (27.0-33.0); MEAN CORPUSCULAR HGB CONC 29.8 g/dl (32.0-36.5); MEAN CORPUSCULAR VOLUME 91.6 fl (80.0-96.0); PLATELET COUNT, AUTOMATED 231 10^3/uL (150-450); RED BLOOD COUNT 3.44 10^6/uL (4.00-5.40); WHITE BLOOD COUNT 7.8 10^3/uL (4.0-10.0)
[2022-03-15] MEDS ORDERED: LEVOTHYROXINE 50MCG TABLET (0.05MG) PO SCH (06:00)
[2022-03-15 06:22] LABS: ALKALINE PHOSPHATASE 155 U/L (46-116); ALT/SGPT 37 U/L (7.0-40); AST/SGOT 71 U/L (<34); BILIRUBIN,TOTAL 0.3 MG/DL (0.3-1.2); BLOOD UREA NITROGEN 31 MG/DL (9-23); CALCIUM LEVEL 8.2 MG/DL (8.3-10.6); CARBON DIOXIDE LEVEL 27 MMOL/L (20-31); CHLORIDE LEVEL 100 MMOL/L (98-107); CREATININE FOR GFR 0.95 MG/DL (0.55-1.30); GLOMERULAR FILTRATION RATE > 60.0 (>39); GLUCOSE, FASTING 224 MG/DL (74-106); POTASSIUM SERUM 4.5 MMOL/L (3.5-5.1); SODIUM LEVEL 131 MMOL/L (136-145)
[2022-03-15] MEDS: INSULIN LISPRO (NovoLOG) PER UNIT SC SCH ×2 (08:02→12:00)
[2022-03-15] MEDS ORDERED: CEFUROXIME 500 MG TAB PO SCH (09:00)
[2022-03-15] MEDS ORDERED: FERROUS SULFATE 325MG TAB PO SCH (09:00)
[2022-03-15] MEDS ORDERED: MIRALAX *UNIT DOSE* 17GM PACKET PO SCH (09:00)
[2022-03-15] MEDS ORDERED: MAGNESIUM OXIDE 400MG TAB (MAG-OX) PO SCH (09:00)
[2022-03-15] MEDS: PANTOPRAZOLE 40MG TAB (PROTONIX) PO SCH (09:19)
[2022-03-15] MEDS: MIDODRINE 2.5 MG TAB PO SCH ×2 (09:53→15:37)
[2022-03-15] MEDS ORDERED: CEFU50TA PO (13:35)
[2022-03-15] MEDS ORDERED: NICOTINE 21MG/24HR 1 EA TRANSDERMAL TD ONE (15:20)
[2022-03-15 17:33] VITALS: BP 151/75
== END 2022-03-15 17:36 | disposition home or self-care (01) ==
LOC: M ED 08:21 → M ED INP 08:22
PROVIDERS: ADMIT Internal Medicine; ATTEND Internal Medicine
DX: R41.82 Altered mental status, unspecified (principal); N39.0 Urinary tract infection, site not specified; B96.20 Unspecified Escherichia coli [E. coli] as the cause of diseases classified elsewhere; E86.0 Dehydration; J09.X2 Influenza due to identified novel influenza A virus with other respiratory manifestations; E87.1 Hypo-osmolality and hyponatremia; E87.8 Other disorders of electrolyte and fluid balance, not elsewhere classified; F03.90 Unspecified dementia, unspecified severity, without behavioral disturbance, psychotic disturbance, mood disturbance, and anxiety; G89.4 Chronic pain syndrome; J44.9 Chronic obstructive pulmonary disease, unspecified; E03.9 Hypothyroidism, unspecified; E78.5 Hyperlipidemia, unspecified; I11.0 Hypertensive heart disease with heart failure; I50.30 Unspecified diastolic (congestive) heart failure; E11.9 Type 2 diabetes mellitus without complications; I48.0 Paroxysmal atrial fibrillation; G47.00 Insomnia, unspecified; M54.6 Pain in thoracic spine; I44.7 Left bundle-branch block, unspecified; R63.0 Anorexia; D50.9 Iron deficiency anemia, unspecified; F17.210 Nicotine dependence, cigarettes, uncomplicated; Z79.899 Other long term (current) drug therapy; Z79.2 Long term (current) use of antibiotics; Z79.890 Hormone replacement therapy; Z79.84 Long term (current) use of oral hypoglycemic drugs; Z79.891 Long term (current) use of opiate analgesic; Z79.01 Long term (current) use of anticoagulants; Z88.8 Allergy status to other drugs, medicaments and biological substances; Z88.1 Allergy status to other antibiotic agents; Z88.5 Allergy status to narcotic agent; Z91.048 Other nonmedicinal substance allergy status
CPT/HCPCS: 36415; 70450; 71045; 74176; 80048; 80053; 80076; 81000; 81015; 83605; 83880; 84145; 84443; 84484; 85025; 85027; 85379; 85610; 85730; 87088; 87186; 87631; 93005; 93041; 94760; 96361; 96365; 96366; 97161; 99285; G0378; J0696; J1815

== ENCOUNTER 2022-03-19 10:43 | Inpatient (IN) | payer MEDICAID, MEDICARE ==
[~2022-03-19] VITALS: Ht 167.6 cm; Wt 55.8 kg
[~2022-03-19 10:43] MED LIST changes: +CEFU50TA PO
[2022-03-19 12:42] LABS: HEMOGLOBIN 10.3 g/dl (12.0-15.5); MEAN CORPUSCULAR HEMOGLOBIN 27.4 pg (27.0-33.0); MEAN CORPUSCULAR HGB CONC 30.3 g/dl (32.0-36.5); MEAN CORPUSCULAR VOLUME 90.4 fl (80.0-96.0); PLATELET COUNT, AUTOMATED 243 10^3/uL (150-450); RED BLOOD COUNT 3.76 10^6/uL (4.00-5.40); WHITE BLOOD COUNT 6.8 10^3/uL (4.0-10.0)
[2022-03-19 13:05] LABS: BILIRUBIN,DIRECT 0.4 MG/DL (<0.4)
[2022-03-19 13:06] LABS: ALBUMIN 3.4 G/DL (3.2-5.2); BILIRUBIN,TOTAL 0.7 MG/DL (0.3-1.2); TOTAL PROTEIN 6.9 G/DL (5.7-8.2)
[2022-03-19] MEDS ORDERED: COMBIVENT RESPIMAT 100-20MCG INHALER 4GM INH STA ×2 (13:16→16:56)
[2022-03-19 13:17] LABS: ANISOCYTOSIS 1+; ATYPICAL LYMPH 1 % (0-5); LYMPHOCYTES 15 % (16-44); MONOCYTES 10 % (0-5); NEUTROPHILS 74 % (28-66); OVALOCYTES 1+; PLATELET ESTIMATE NORMAL (NORMAL); POLYCHROMASIA 1+
[2022-03-19] MEDS ORDERED: ONDANSETRON 4MG 2ML VIAL IV ONE (13:25)
[2022-03-19] MEDS ORDERED: ISOVUE-370 76% 100ML VIAL As Ordered ONE (14:09)
[2022-03-19] MEDS ORDERED: CEFU1TAB22 PO (14:43)
[2022-03-19] MEDS ORDERED: HOME MED LIST COMPLETE! XX SCH (14:45)
[2022-03-19 15:09] LABS: MAGNESIUM LEVEL 1.5 MG/DL (1.8-2.4)
[2022-03-19 15:11] LABS: CALCIUM LEVEL 8.8 MG/DL (8.3-10.6); CREATININE FOR GFR 0.97 MG/DL (0.55-1.30); GLOMERULAR FILTRATION RATE 59.6 (>39); POTASSIUM SERUM 5.5 MMOL/L (3.5-5.1)
[2022-03-19 15:14] LABS: CK-MB VALUE MASS 3.5 NG/ML (<3.6); FREE T4 1.48 NG/DL (0.89-1.76); THYROID STIMULATING HORMONE 3.673 uIU/ML (0.55-4.78)
[2022-03-19 15:16] LABS: MB/CK RELATIVE INDEX 4.11 (< OR =4)
[2022-03-19 15:28] LABS: INR 2.1; PROTHROMBIN TIME 23.9 SECONDS (12.5-14.5)
[2022-03-19 15:29] LABS: PARTIAL THROMBOPLASTIN TIME 32.8 SECONDS (24.8-34.2)
[2022-03-19 15:46] LABS: CK-MB VALUE MASS 2.6 NG/ML (<3.6)
[2022-03-19 15:50] LABS: MB/CK RELATIVE INDEX 3.09 (< OR =4)
[2022-03-19] MEDS ORDERED: methylPREDNISolone 125MG 2ML VIAL IV ONE (16:50)
[2022-03-19] MEDS ORDERED: ONDANSETRON 4MG 2ML VIAL IV PRN (17:05)
[2022-03-19] MEDS: NS 1,000 ML IV SCH (17:10)
[2022-03-19 17:33] LABS: CK-MB VALUE MASS 2.8 NG/ML (<3.6)
[2022-03-19 17:35] LABS: MB/CK RELATIVE INDEX 4.24 (< OR =4)
[2022-03-19] MEDS ORDERED: MAG SULF 1GM/100ML (MAG RUN) 1 GM in IV 1 EA IV ONE (18:00)
[2022-03-19 18:14] LABS: INR 1.89
[2022-03-19 18:15] LABS: PARTIAL THROMBOPLASTIN TIME 31.7 SECONDS (24.8-34.2)
[2022-03-19] MEDS ORDERED: ALBUTEROL SULFATE 2.5MG/0.5ML INH NEB SOLN NEB PRN (18:15)
[2022-03-19] MEDS ORDERED: GLUCAGON INJ 1MG VIAL SC PRN (18:20)
[2022-03-19] MEDS ORDERED: GLUCOSE 4GM CHEW TABLET PO PRN (18:20)
[2022-03-19] MEDS ORDERED: DEXTROSE 50% 50ML SYRINGE IV PRN (18:20)
[2022-03-19] MEDS: INSULIN LISPRO (NovoLOG) PER UNIT SC SCH (19:25)
[2022-03-19] MEDS: ALBUTEROL SULFATE 2.5MG/0.5ML INH NEB SOLN NEB SCH (19:36)
[2022-03-19] MEDS: CYCLOBENZAPRINE 5MG TABLET PO SCH (20:43)
[2022-03-19] MEDS: PRAMIPEXOLE 0.25 MG TAB PO SCH (20:45)
[2022-03-19] MEDS: METOCLOPRAMIDE 10MG TAB PO SCH (20:45)
[2022-03-19] MEDS: RIVAROXABAN 20MG TAB (XARELTO) PO SCH (20:45)
[2022-03-19] MEDS: BISOPROLOL FUM 2.5 MG PER 1/2TAB PO SCH (20:45)
[2022-03-19] MEDS: PERCOCET 5MG/325MG TAB PO SCH (20:46)
[2022-03-19] MEDS: RAMELTEON 8 MG TAB (ROZEREM) PO SCH (20:46)
[2022-03-19] MEDS: MONTELUKAST 10 MG TAB PO SCH (20:46)
[2022-03-19] MEDS: VENLAFAXINE **XR** 75MG CAPSULE PO SCH (20:46)
[2022-03-19] MEDS: NICOTINE 21MG/24HR 1 EA TRANSDERMAL TD SCH (20:47)
[2022-03-19] MEDS: MIDODRINE 2.5 MG TAB PO SCH (20:48)
[2022-03-19] MEDS ORDERED: PRAMIPEXOLE (MIRAPEX) 0.125 MG TAB PO SCH (21:00)
[2022-03-20] MEDS: INSULIN LISPRO (NovoLOG) PER UNIT SC SCH ×5 (00:09→21:03)
[2022-03-20] MEDS: methylPREDNISolone 40MG 1ML VIAL IV SCH ×2 (03:13→15:39)
[2022-03-20] MEDS: LEVOTHYROXINE 50MCG TABLET (0.05MG) PO SCH (06:11)
[2022-03-20] MEDS: NS 1,000 ML IV SCH ×2 (06:16→21:00)
[2022-03-20 07:14] LABS: HEMATOCRIT 30.8 % (36.0-47.0); HEMOGLOBIN 9.5 g/dl (12.0-15.5); MEAN CORPUSCULAR HGB CONC 30.8 g/dl (32.0-36.5); MEAN CORPUSCULAR VOLUME 90.9 fl (80.0-96.0); PLATELET COUNT, AUTOMATED 239 10^3/uL (150-450); RED BLOOD COUNT 3.39 10^6/uL (4.00-5.40); WHITE BLOOD COUNT 4.1 10^3/uL (4.0-10.0)
[2022-03-20] MEDS: ALBUTEROL SULFATE 2.5MG/0.5ML INH NEB SOLN NEB SCH ×4 (08:00→20:10)
[2022-03-20 08:01] LABS: ALBUMIN 2.8 G/DL (3.2-5.2); ALKALINE PHOSPHATASE 235 U/L (46-116); ALT/SGPT 238 U/L (7.0-40); AST/SGOT 167 U/L (<34); BILIRUBIN,TOTAL 0.4 MG/DL (0.3-1.2); BLOOD UREA NITROGEN 21 MG/DL (9-23); CALCIUM LEVEL 8.3 MG/DL (8.3-10.6); CARBON DIOXIDE LEVEL 26 MMOL/L (20-31); CHLORIDE LEVEL 99 MMOL/L (98-107); CREATININE FOR GFR 0.87 MG/DL (0.55-1.30); GLOMERULAR FILTRATION RATE > 60.0 (>39); GLUCOSE, FASTING 263 MG/DL (74-106); SODIUM LEVEL 130 MMOL/L (136-145); TOTAL PROTEIN 6.3 G/DL (5.7-8.2)
[2022-03-20] MEDS: MIDODRINE 2.5 MG TAB PO SCH ×2 (09:00→21:00)
[2022-03-20] MEDS: MIRALAX *UNIT DOSE* 17GM PACKET PO SCH (09:00)
[2022-03-20] MEDS: NICOTINE 21MG/24HR 1 EA TRANSDERMAL TD SCH (11:29)
[2022-03-20] MEDS: MAGNESIUM OXIDE 400MG TAB (MAG-OX) PO SCH (11:30)
[2022-03-20] MEDS: PERCOCET 5MG/325MG TAB PO SCH ×3 (11:31→17:00)
[2022-03-20] MEDS: FERROUS SULFATE 325MG TAB PO SCH (11:31)
[2022-03-20 12:00] VITALS: BP 132/87
[2022-03-20 14:00] VITALS: BP 131/85
[2022-03-20] MEDS ORDERED: DEXTROSE 50% 50ML SYRINGE IV PRN (18:00)
[2022-03-20] MEDS ORDERED: GLUCOSE 4GM CHEW TABLET PO PRN (18:00)
[2022-03-20] MEDS ORDERED: GLUCAGON INJ 1MG VIAL SC PRN (18:00)
[2022-03-20 20:18] VITALS: O2SAT 94
[2022-03-20 21:00] VITALS: BP 129/82
[2022-03-20] MEDS: PRAMIPEXOLE 0.25 MG TAB PO SCH (21:00)
[2022-03-20] MEDS: RAMELTEON 8 MG TAB (ROZEREM) PO SCH (21:00)
[2022-03-20] MEDS: VENLAFAXINE **XR** 75MG CAPSULE PO SCH (21:00)
[2022-03-20] MEDS: METOCLOPRAMIDE 10MG TAB PO SCH (21:00)
[2022-03-20] MEDS: CYCLOBENZAPRINE 5MG TABLET PO SCH (21:00)
[2022-03-20] MEDS: MONTELUKAST 10 MG TAB PO SCH (21:01)
[2022-03-20] MEDS: RIVAROXABAN 20MG TAB (XARELTO) PO SCH (21:01)
[2022-03-20] MEDS: LEVEMIR (INSULIN DETEMIR) 1 UNITS/0.01ML SC SCH (21:02)
[2022-03-20] MEDS: BISOPROLOL FUM 2.5 MG PER 1/2TAB PO SCH (21:04)
[2022-03-20] MEDS ORDERED: ACETAMINOPHEN TAB 650MG DOSE (2X325MG) PO ONE (23:45)
[2022-03-21] VITALS (7 sets, daily range): BP systolic 124–165; BP diastolic 64–93
[2022-03-21] MEDS ORDERED: ACETAMINOPHEN 325 MG TAB PO ONE ×2 (00:35→14:55)
[2022-03-21] MEDS: PERCOCET 5MG/325MG TAB PO PRN ×2 (02:05→21:17)
[2022-03-21] MEDS ORDERED: TEMAZEPAM 7.5 MG CAP PO ONE (02:50)
[2022-03-21] MEDS: LEVOTHYROXINE 50MCG TABLET (0.05MG) PO SCH (05:59)
[2022-03-21 06:39] LABS: HEMATOCRIT 30.9 % (36.0-47.0); HEMOGLOBIN 9.4 g/dl (12.0-15.5); MEAN CORPUSCULAR HEMOGLOBIN 28.1 pg (27.0-33.0); MEAN CORPUSCULAR HGB CONC 30.4 g/dl (32.0-36.5); MEAN CORPUSCULAR VOLUME 92.5 fl (80.0-96.0); PLATELET COUNT, AUTOMATED 290 10^3/uL (150-450); RED BLOOD COUNT 3.34 10^6/uL (4.00-5.40); WHITE BLOOD COUNT 13.9 10^3/uL (4.0-10.0)
[2022-03-21 07:13] LABS: ALBUMIN 2.7 G/DL (3.2-5.2); BILIRUBIN,TOTAL 0.4 MG/DL (0.3-1.2); CREATININE FOR GFR 1.05 MG/DL (0.55-1.30); GLOMERULAR FILTRATION RATE 54.4 (>39); POTASSIUM SERUM 5.7 MMOL/L (3.5-5.1); TOTAL PROTEIN 5.9 G/DL (5.7-8.2)
[2022-03-21] MEDS: ALBUTEROL SULFATE 2.5MG/0.5ML INH NEB SOLN NEB SCH ×4 (07:14→19:14)
[2022-03-21] MEDS: INSULIN LISPRO (NovoLOG) PER UNIT SC SCH ×4 (07:30→21:16)
[2022-03-21] MEDS ORDERED: HumuLIN R (REGULAR) INSULIN (NovoLIN R) **100U/ML** PER UNIT IV STA ×2 (08:12→13:22)
[2022-03-21] MEDS ORDERED: DEXTROSE 50% 50ML SYRINGE IV STA ×2 (08:12→13:22)
[2022-03-21] MEDS: MIDODRINE 2.5 MG TAB PO SCH ×2 (09:00→21:00)
[2022-03-21] MEDS: FERROUS SULFATE 325MG TAB PO SCH (09:07)
[2022-03-21] MEDS: predniSONE 20 MG TAB PO SCH (09:07)
[2022-03-21] MEDS: MAGNESIUM OXIDE 400MG TAB (MAG-OX) PO SCH (09:07)
[2022-03-21] MEDS: NICOTINE 21MG/24HR 1 EA TRANSDERMAL TD SCH (09:09)
[2022-03-21] MEDS: NS 1,000 ML IV SCH (09:32)
[2022-03-21] MEDS: MIRALAX *UNIT DOSE* 17GM PACKET PO SCH (09:33)
[2022-03-21 12:41] LABS: BLOOD UREA NITROGEN 31 MG/DL (9-23); CALCIUM LEVEL 7.9 MG/DL (8.3-10.6); CARBON DIOXIDE LEVEL 24 MMOL/L (20-31); CHLORIDE LEVEL 100 MMOL/L (98-107); CREATININE FOR GFR 0.94 MG/DL (0.55-1.30); GLOMERULAR FILTRATION RATE > 60.0 (>39); GLUCOSE, FASTING 283 MG/DL (74-106); POTASSIUM SERUM 5.5 MMOL/L (3.5-5.1); SODIUM LEVEL 130 MMOL/L (136-145)
[2022-03-21] MEDS: THIAMINE 100 MG TAB PO SCH (13:42)
[2022-03-21] MEDS ORDERED: FUROSEMIDE 20 MG TAB PO ONE (16:20)
[2022-03-21 17:01] LABS: BLOOD UREA NITROGEN 31 MG/DL (9-23); CALCIUM LEVEL 8.3 MG/DL (8.3-10.6); CARBON DIOXIDE LEVEL 22 MMOL/L (20-31); CHLORIDE LEVEL 100 MMOL/L (98-107); CREATININE FOR GFR 0.95 MG/DL (0.55-1.30); GLOMERULAR FILTRATION RATE > 60.0 (>39); GLUCOSE, FASTING 291 MG/DL (74-106); POTASSIUM SERUM 5.6 MMOL/L (3.5-5.1); SODIUM LEVEL 132 MMOL/L (136-145)
[2022-03-21 20:37] LABS: BLOOD UREA NITROGEN 31 MG/DL (9-23); CALCIUM LEVEL 8.2 MG/DL (8.3-10.6); CARBON DIOXIDE LEVEL 22 MMOL/L (20-31); CHLORIDE LEVEL 99 MMOL/L (98-107); CREATININE FOR GFR 0.96 MG/DL (0.55-1.30); GLOMERULAR FILTRATION RATE > 60.0 (>39); GLUCOSE, FASTING 393 MG/DL (74-106); POTASSIUM SERUM 5.8 MMOL/L (3.5-5.1); SODIUM LEVEL 129 MMOL/L (136-145)
[2022-03-21] MEDS: RAMELTEON 8 MG TAB (ROZEREM) PO SCH (21:09)
[2022-03-21] MEDS: PRAMIPEXOLE 0.25 MG TAB PO SCH (21:09)
[2022-03-21] MEDS: CYCLOBENZAPRINE 5MG TABLET PO SCH (21:09)
[2022-03-21] MEDS: RIVAROXABAN 20MG TAB (XARELTO) PO SCH (21:09)
[2022-03-21] MEDS: METOCLOPRAMIDE 10MG TAB PO SCH (21:10)
[2022-03-21] MEDS: MONTELUKAST 10 MG TAB PO SCH (21:10)
[2022-03-21] MEDS: VENLAFAXINE **XR** 75MG CAPSULE PO SCH (21:10)
[2022-03-21] MEDS: BISOPROLOL FUM 2.5 MG PER 1/2TAB PO SCH (21:13)
[2022-03-21] MEDS: LEVEMIR (INSULIN DETEMIR) 1 UNITS/0.01ML SC SCH (21:15)
[2022-03-22 04:30] VITALS: BP 160/92
[2022-03-22 06:15] LABS: BASO % 0.1 % (0.0-1.0); HEMATOCRIT 29.8 % (36.0-47.0); HEMOGLOBIN 8.8 g/dl (12.0-15.5); LYMPH # 0.5 10^3/uL (1.5-5.0); LYMPH % 3.5 % (24.0-44.0); MEAN CORPUSCULAR HEMOGLOBIN 27.1 pg (27.0-33.0); MEAN CORPUSCULAR HGB CONC 29.5 g/dl (32.0-36.5); MEAN CORPUSCULAR VOLUME 91.7 fl (80.0-96.0); MONO # 1.5 10^3/uL (0.0-0.8); MONO % 9.8 % (2.0-8.0); NEUTROPHILS # 12.9 10^3/uL (1.5-8.5); NEUTROPHILS % 85.5 % (36.0-66.0); PLATELET COUNT, AUTOMATED 281 10^3/uL (150-450); RED BLOOD COUNT 3.25 10^6/uL (4.00-5.40)
[2022-03-22] MEDS: LEVOTHYROXINE 50MCG TABLET (0.05MG) PO SCH (06:31)
[2022-03-22 06:46] LABS: ALBUMIN 2.7 G/DL (3.2-5.2); ALKALINE PHOSPHATASE 212 U/L (46-116); ALT/SGPT 197 U/L (7.0-40); AST/SGOT 76 U/L (<34); BILIRUBIN,TOTAL 0.3 MG/DL (0.3-1.2); BLOOD UREA NITROGEN 29 MG/DL (9-23); CALCIUM LEVEL 8.4 MG/DL (8.3-10.6); CARBON DIOXIDE LEVEL 23 MMOL/L (20-31); CHLORIDE LEVEL 101 MMOL/L (98-107); CREATININE FOR GFR 0.89 MG/DL (0.55-1.30); GLOMERULAR FILTRATION RATE > 60.0 (>39); GLUCOSE, FASTING 351 MG/DL (74-106); MAGNESIUM LEVEL 1.7 MG/DL (1.8-2.4); POTASSIUM SERUM 5.4 MMOL/L (3.5-5.1); SODIUM LEVEL 130 MMOL/L (136-145); TOTAL PROTEIN 5.6 G/DL (5.7-8.2)
[2022-03-22] MEDS ORDERED: MAG SULF 1GM/100ML (MAG RUN) 1 GM in IV 1 EA IV ONE (07:50)
[2022-03-22] MEDS: ALBUTEROL SULFATE 2.5MG/0.5ML INH NEB SOLN NEB SCH ×3 (07:51→16:07)
[2022-03-22] MEDS ORDERED: SODIUM CHLORIDE 1 GM TAB PO ONE (09:00)
[2022-03-22] MEDS: NICOTINE 21MG/24HR 1 EA TRANSDERMAL TD SCH (09:34)
[2022-03-22] MEDS: MIRALAX *UNIT DOSE* 17GM PACKET PO SCH (09:34)
[2022-03-22] MEDS: INSULIN LISPRO (NovoLOG) PER UNIT SC SCH ×2 (09:35→12:43)
[2022-03-22] MEDS: FERROUS SULFATE 325MG TAB PO SCH (09:36)
[2022-03-22] MEDS: predniSONE 20 MG TAB PO SCH (09:36)
[2022-03-22] MEDS: THIAMINE 100 MG TAB PO SCH (09:36)
[2022-03-22] MEDS: MAGNESIUM OXIDE 400MG TAB (MAG-OX) PO SCH (09:36)
[2022-03-22] MEDS: MIDODRINE 2.5 MG TAB PO SCH (09:40)
[2022-03-22] MEDS ORDERED: PATIROMER SORBITEX CALCIUM 8.4 GM POWDER PACKET (VELTASSA) PO ONE (10:00)
[2022-03-22 12:28] LABS: BLOOD UREA NITROGEN 25 MG/DL (9-23); CALCIUM LEVEL 8.8 MG/DL (8.3-10.6); CARBON DIOXIDE LEVEL 26 MMOL/L (20-31); CHLORIDE LEVEL 100 MMOL/L (98-107); CREATININE FOR GFR 0.89 MG/DL (0.55-1.30); GLOMERULAR FILTRATION RATE > 60.0 (>39); GLUCOSE, FASTING 134 MG/DL (74-106); POTASSIUM SERUM 4.8 MMOL/L (3.5-5.1); SODIUM LEVEL 132 MMOL/L (136-145)
[2022-03-22 14:00] VITALS: BP 140/70
[2022-03-22] MEDS ORDERED: PRED20TA PO (14:49)
[2022-03-22] MEDS ORDERED: THIA100TA PO (14:49)
== END 2022-03-22 16:38 | disposition home or self-care (01) | DRG 641 ==
LOC: M ED 10:43 → M ED INP 17:01 → ENRESERV 03-20 11:07 → M MSPAV 03-20 11:59
PROVIDERS: ADMIT Internal Medicine; ATTEND Family Medicine
PROC: B246ZZZ Ultrasonography of Right and Left Heart (ICD-10-PCS; principal; 2022-03-21)
DX: E86.0 Dehydration (principal); I50.32 Chronic diastolic (congestive) heart failure; J44.1 Chronic obstructive pulmonary disease with (acute) exacerbation; E87.20 Acidosis, unspecified; E87.1 Hypo-osmolality and hyponatremia; R11.2 Nausea with vomiting, unspecified; E11.9 Type 2 diabetes mellitus without complications; I11.0 Hypertensive heart disease with heart failure; I48.0 Paroxysmal atrial fibrillation; I44.7 Left bundle-branch block, unspecified; F03.90 Unspecified dementia, unspecified severity, without behavioral disturbance, psychotic disturbance, mood disturbance, and anxiety; M54.2 Cervicalgia; M54.50 Low back pain, unspecified; J44.9 Chronic obstructive pulmonary disease, unspecified; D50.9 Iron deficiency anemia, unspecified; R42 Dizziness and giddiness; Z66 Do not resuscitate; R29.6 Repeated falls; F17.200 Nicotine dependence, unspecified, uncomplicated; R74.01 Elevation of levels of liver transaminase levels; R53.1 Weakness; Z90.49 Acquired absence of other specified parts of digestive tract; T36.1X5A Adverse effect of cephalosporins and other beta-lactam antibiotics, initial encounter; J10.1 Influenza due to other identified influenza virus with other respiratory manifestations; G89.29 Other chronic pain; E03.9 Hypothyroidism, unspecified; E78.5 Hyperlipidemia, unspecified; G47.00 Insomnia, unspecified; E87.5 Hyperkalemia; F32.A Depression, unspecified; Z79.890 Hormone replacement therapy; Z79.01 Long term (current) use of anticoagulants; Z79.84 Long term (current) use of oral hypoglycemic drugs; Z79.899 Other long term (current) drug therapy; Z88.1 Allergy status to other antibiotic agents; Z88.8 Allergy status to other drugs, medicaments and biological substances; Z91.048 Other nonmedicinal substance allergy status; Z88.5 Allergy status to narcotic agent

== ENCOUNTER 2022-03-25 22:55 | Inpatient (IN) | payer MEDICARE ==
[~2022-03-25] VITALS: Ht 162.6 cm; Wt 52.7 kg
[~2022-03-25 22:55] MED LIST changes: +CEFU1TAB22 PO; +THIA100TA PO
[2022-03-25] MEDS ORDERED: IPRATROPIUM 0.5MG/ALBUTEROL 2.5MG INH SOL UD 3ML (DUONEB) NEB ONE (23:40)
[2022-03-26 00:23] LABS: BASO % 0.1 % (0.0-1.0); HEMATOCRIT 35.1 % (36.0-47.0); HEMOGLOBIN 10.5 g/dl (12.0-15.5); LYMPH # 0.2 10^3/uL (1.5-5.0); LYMPH % 1.3 % (24.0-44.0); MEAN CORPUSCULAR HEMOGLOBIN 27.3 pg (27.0-33.0); MEAN CORPUSCULAR HGB CONC 29.9 g/dl (32.0-36.5); MEAN CORPUSCULAR VOLUME 91.4 fl (80.0-96.0); MONO # 0.9 10^3/uL (0.0-0.8); MONO % 5.7 % (2.0-8.0); NEUTROPHILS # 15.1 10^3/uL (1.5-8.5); PLATELET COUNT, AUTOMATED 379 10^3/uL (150-450); RED BLOOD COUNT 3.84 10^6/uL (4.00-5.40); WHITE BLOOD COUNT 16.4 10^3/uL (4.0-10.0)
[2022-03-26 00:34] LABS: PROTHROMBIN TIME 59.6 SECONDS (12.5-14.5)
[2022-03-26 00:44] LABS: ALBUMIN 3.1 G/DL (3.2-5.2); BILIRUBIN,DIRECT 0.7 MG/DL (<0.4); BILIRUBIN,TOTAL 1.1 MG/DL (0.3-1.2); CALCIUM LEVEL 8.5 MG/DL (8.3-10.6); CK-MB VALUE MASS 2.8 NG/ML (<3.6); CREATININE FOR GFR 1.18 MG/DL (0.55-1.30); GLOMERULAR FILTRATION RATE 47.5 (>39); MB/CK RELATIVE INDEX 5.38 (< OR =4); POTASSIUM SERUM 5.7 MMOL/L (3.5-5.1); TOTAL PROTEIN 6.6 G/DL (5.7-8.2)
[2022-03-26 00:46] LABS: FREE T4 1.22 NG/DL (0.89-1.76); THYROID STIMULATING HORMONE 2.23 uIU/ML (0.55-4.78)
[2022-03-26 00:51] LABS: INR 6.75
[2022-03-26 00:54] LABS: RSV AMPLIFICATION NEGATIVE (NEGATIVE)
[2022-03-26] MEDS ORDERED: REPA1TAB3 PO (01:52)
[2022-03-26] MEDS ORDERED: FURO40TA2 PO (01:52)
[2022-03-26] MEDS ORDERED: GLIP10TA18 PO (01:52)
[2022-03-26] MEDS ORDERED: VITA100T28 PO (01:52)
[2022-03-26] MEDS ORDERED: MELA5TAB10 PO (01:52)
[2022-03-26] MEDS ORDERED: PRED20TA PO (01:52)
[2022-03-26] MEDS ORDERED: SPIR-10 PO (01:52)
[2022-03-26] MEDS ORDERED: FUROSEMIDE 100MG/10ML VIAL IV ONE (01:55)
[2022-03-26] MEDS ORDERED: HOME MED LIST COMPLETE! XX SCH (01:55)
[2022-03-26] MEDS ORDERED: HYDROMORPHONE HCL 0.5 MG/ 0.5 ML SYRINGE (J1170 PER 1) IV PRN (03:10)
[2022-03-26] MEDS ORDERED: ALBUTEROL SULFATE 2.5MG/0.5ML INH NEB SOLN NEB PRN (03:10)
[2022-03-26] MEDS ORDERED: LACTULOSE 20GM/30ML SYRUP UDC PO ONE (03:10)
[2022-03-26] MEDS ORDERED: AZITHROMYCIN INJ 500 MG, VIAL MATE ADAPTER 1 EACH in NS 250 ML IV ONE (03:10)
[2022-03-26] MEDS ORDERED: DEXTROSE 50% 50ML SYRINGE IV PRN (03:10)
[2022-03-26] MEDS ORDERED: GLUCOSE 4GM CHEW TABLET PO PRN (03:10)
[2022-03-26] MEDS ORDERED: GLUCAGON INJ 1MG VIAL SC PRN (03:10)
[2022-03-26] MEDS: LEVOTHYROXINE 50MCG TABLET (0.05MG) PO SCH (05:54)
[2022-03-26 07:10] LABS: HEMATOCRIT 31.4 % (36.0-47.0); HEMOGLOBIN 9.6 g/dl (12.0-15.5)
[2022-03-26] MEDS: FERROUS SULFATE 325MG TAB PO SCH (08:11)
[2022-03-26] MEDS: FUROSEMIDE 40MG/4ML VIAL IV SCH (08:11)
[2022-03-26] MEDS: NICOTINE 21MG/24HR 1 EA TRANSDERMAL TD SCH (08:12)
[2022-03-26] MEDS: IPRATROPIUM 0.5MG/ALBUTEROL 2.5MG INH SOL UD 3ML (DUONEB) NEB SCH ×3 (08:14→20:00)
[2022-03-26] MEDS: INSULIN LISPRO (NovoLOG) PER UNIT SC SCH ×4 (08:15→21:00)
[2022-03-26] MEDS: PANTOPRAZOLE 40MG TAB (PROTONIX) PO SCH (08:16)
[2022-03-26 13:08] VITALS: O2SAT 96
[2022-03-26] MEDS: VENLAFAXINE **XR** 75MG CAPSULE PO SCH (17:32)
[2022-03-26] MEDS: PRAMIPEXOLE (MIRAPEX) 0.125 MG TAB PO SCH (17:32)
[2022-03-26] MEDS: BISOPROLOL FUM 2.5 MG PER 1/2TAB PO SCH (17:33)
[2022-03-26] MEDS: AZITHROMYCIN 250MG TABLET PO SCH (17:34)
[2022-03-27] MEDS: IPRATROPIUM 0.5MG/ALBUTEROL 2.5MG INH SOL UD 3ML (DUONEB) NEB SCH ×4 (02:00→19:21)
[2022-03-27] MEDS: LEVOTHYROXINE 50MCG TABLET (0.05MG) PO SCH (05:48)
[2022-03-27 06:54] LABS: INR 1.92; PROTHROMBIN TIME 22.3 SECONDS (12.5-14.5)
[2022-03-27 07:10] LABS: ALBUMIN 2.6 G/DL (3.2-5.2); ALKALINE PHOSPHATASE 212 U/L (46-116); ALT/SGPT 161 U/L (7.0-40); AST/SGOT 59 U/L (<34); BLOOD UREA NITROGEN 30 MG/DL (9-23); CARBON DIOXIDE LEVEL 28 MMOL/L (20-31); CHLORIDE LEVEL 95 MMOL/L (98-107); CREATININE FOR GFR 0.84 MG/DL (0.55-1.30); GLOMERULAR FILTRATION RATE > 60.0 (>39); GLUCOSE, FASTING 361 MG/DL (74-106); POTASSIUM SERUM 4.6 MMOL/L (3.5-5.1); SODIUM LEVEL 132 MMOL/L (136-145); TOTAL PROTEIN 5.3 G/DL (5.7-8.2)
[2022-03-27] MEDS: INSULIN LISPRO (NovoLOG) PER UNIT SC SCH ×4 (08:51→20:22)
[2022-03-27] MEDS: NICOTINE 21MG/24HR 1 EA TRANSDERMAL TD SCH (09:00)
[2022-03-27] MEDS: FUROSEMIDE 40MG/4ML VIAL IV SCH ×2 (11:38→18:25)
[2022-03-27] MEDS: PANTOPRAZOLE 40MG TAB (PROTONIX) PO SCH (11:38)
[2022-03-27] MEDS: FERROUS SULFATE 325MG TAB PO SCH (11:38)
[2022-03-27 12:00] VITALS: BP 147/89
[2022-03-27] MEDS ORDERED: LEVEMIR (INSULIN DETEMIR) 1 UNITS/0.01ML SC ONE (14:25)
[2022-03-27 14:45] LABS: BASO % 0.1 % (0.0-1.0); EOS % 0.2 % (0.0-3.0); HEMATOCRIT 33.5 % (36.0-47.0); LYMPH # 0.6 10^3/uL (1.5-5.0); LYMPH % 3.5 % (24.0-44.0); MEAN CORPUSCULAR HEMOGLOBIN 27.5 pg (27.0-33.0); MEAN CORPUSCULAR HGB CONC 29.9 g/dl (32.0-36.5); NEUTROPHILS # 13.4 10^3/uL (1.5-8.5); NEUTROPHILS % 81.1 % (36.0-66.0); PLATELET COUNT, AUTOMATED 348 10^3/uL (150-450); RED BLOOD COUNT 3.64 10^6/uL (4.00-5.40); WHITE BLOOD COUNT 16.5 10^3/uL (4.0-10.0)
[2022-03-27 15:09] LABS: MONO # 2.3 10^3/uL (0.0-0.8)
[2022-03-27 15:14] LABS: MONO % 14.2 % (2.0-8.0)
[2022-03-27 15:38] LABS: ACETAMINOPHEN LEVEL < 2.0 UG/ML (10.0-20.0)
[2022-03-27 15:58] LABS: HEPATITIS B SURFACE ANTIGEN NEGATIVE (NEGATIVE)
[2022-03-27 16:15] VITALS: BP 148/57
[2022-03-27 16:19] LABS: HEPATITIS B CORE ANTIBODY IGM NEGATIVE (NEGATIVE); HEPATITIS C VIRUS ABY INDEX 0.1 INDEX (<0.8)
[2022-03-27] MEDS ORDERED: RIVAROXABAN 20MG TAB (XARELTO) PO SCH (18:00)
[2022-03-27] MEDS: VENLAFAXINE **XR** 75MG CAPSULE PO SCH (18:24)
[2022-03-27] MEDS: AZITHROMYCIN 250MG TABLET PO SCH (18:24)
[2022-03-27] MEDS: predniSONE 10 MG TAB PO SCH (18:24)
[2022-03-27] MEDS: BISOPROLOL FUM 2.5 MG PER 1/2TAB PO SCH (19:01)
[2022-03-27] MEDS: PRAMIPEXOLE (MIRAPEX) 0.125 MG TAB PO SCH (19:01)
[2022-03-27 20:17] VITALS: BP 146/86
[2022-03-27] MEDS ORDERED: MORPHINE 2 MG/ML 1ML VIAL IV ONE (20:50)
[2022-03-27] MEDS ORDERED: ASPIRIN 81MG CHEW TABLET PO ONE (20:50)
[2022-03-27] MEDS: THIAMINE 100 MG TAB PO SCH (21:01)
[2022-03-27 21:57] LABS: CK-MB VALUE MASS 1.1 NG/ML (<3.6)
[2022-03-27 21:58] LABS: MB/CK RELATIVE INDEX 2.89 (< OR =4)
[2022-03-28] MEDS: IPRATROPIUM 0.5MG/ALBUTEROL 2.5MG INH SOL UD 3ML (DUONEB) NEB SCH ×2 (02:00→08:00)
[2022-03-28 06:05] VITALS: BP 159/77
[2022-03-28] MEDS: LEVOTHYROXINE 50MCG TABLET (0.05MG) PO SCH (06:10)
[2022-03-28] MEDS: NICOTINE 21MG/24HR 1 EA TRANSDERMAL TD SCH (08:08)
[2022-03-28] MEDS: FUROSEMIDE 40MG/4ML VIAL IV SCH ×2 (08:09→17:32)
[2022-03-28] MEDS: INSULIN LISPRO (NovoLOG) PER UNIT SC SCH ×4 (08:10→20:36)
[2022-03-28] MEDS: PANTOPRAZOLE 40MG TAB (PROTONIX) PO SCH (08:11)
[2022-03-28] MEDS: predniSONE 10 MG TAB PO SCH (08:11)
[2022-03-28 08:33] LABS: BASO % 0.1 % (0.0-1.0); HEMATOCRIT 32.5 % (36.0-47.0); LYMPH # 0.5 10^3/uL (1.5-5.0); LYMPH % 4.2 % (24.0-44.0); MEAN CORPUSCULAR HGB CONC 30.8 g/dl (32.0-36.5); MONO % 7.5 % (2.0-8.0); NEUTROPHILS # 11.2 10^3/uL (1.5-8.5); NEUTROPHILS % 87.2 % (36.0-66.0); PLATELET COUNT, AUTOMATED 318 10^3/uL (150-450); RED BLOOD COUNT 3.57 10^6/uL (4.00-5.40); WHITE BLOOD COUNT 12.9 10^3/uL (4.0-10.0)
[2022-03-28 08:45] LABS: INR 1.19; PROTHROMBIN TIME 15.4 SECONDS (12.5-14.5)
[2022-03-28 08:53] LABS: MAGNESIUM LEVEL 1.5 MG/DL (1.8-2.4)
[2022-03-28 08:56] LABS: ALBUMIN 2.8 G/DL (3.2-5.2); ALKALINE PHOSPHATASE 199 U/L (46-116); ALT/SGPT 154 U/L (7.0-40); AST/SGOT 55 U/L (<34); BILIRUBIN,TOTAL 0.9 MG/DL (0.3-1.2); BLOOD UREA NITROGEN 23 MG/DL (9-23); CALCIUM LEVEL 8.3 MG/DL (8.3-10.6); CARBON DIOXIDE LEVEL 32 MMOL/L (20-31); CHLORIDE LEVEL 93 MMOL/L (98-107); CREATININE FOR GFR 0.75 MG/DL (0.55-1.30); GLOMERULAR FILTRATION RATE > 60.0 (>39); GLUCOSE, FASTING 184 MG/DL (74-106); POTASSIUM SERUM 4.1 MMOL/L (3.5-5.1); SODIUM LEVEL 132 MMOL/L (136-145); TOTAL PROTEIN 5.7 G/DL (5.7-8.2)
[2022-03-28] MEDS ORDERED: SPIRONOLACTONE 25 MG TAB PO SCH (09:00)
[2022-03-28] MEDS ORDERED: ALBUTEROL SULFATE 2.5MG/0.5ML INH NEB SOLN NEB PRN (09:23)
[2022-03-28 14:00] VITALS: BP 142/60
[2022-03-28] MEDS: AZITHROMYCIN 250MG TABLET PO SCH (17:29)
[2022-03-28] MEDS: PRAMIPEXOLE (MIRAPEX) 0.125 MG TAB PO SCH (17:30)
[2022-03-28] MEDS: VENLAFAXINE **XR** 75MG CAPSULE PO SCH (17:30)
[2022-03-28] MEDS: RIVAROXABAN 20MG TAB (XARELTO) PO SCH (17:30)
[2022-03-28] MEDS: BISOPROLOL FUM 2.5 MG PER 1/2TAB PO SCH (17:31)
[2022-03-28] MEDS: PERCOCET 5MG/325MG TAB PO PRN (20:33)
[2022-03-28] MEDS: MONTELUKAST 10 MG TAB PO SCH (20:33)
[2022-03-28] MEDS: THIAMINE 100 MG TAB PO SCH (20:33)
[2022-03-28 22:00] VITALS: BP 150/64
[2022-03-28] MEDS: RAMELTEON 8 MG TAB (ROZEREM) PO PRN (22:13)
[2022-03-28] MEDS ORDERED: MORPHINE 2 MG/ML 1ML VIAL IV ONE ×2 (23:00)
[2022-03-28] MEDS: LIDOCAINE 5% (LIDODERM) PATCH TD SCH (23:07)
[2022-03-28] MEDS: CYCLOBENZAPRINE 5MG TABLET PO PRN (23:07)
[2022-03-28 23:08] VITALS: BP 143/64
[2022-03-29 05:40] VITALS: BP_SYST 109; BP_SYST 153; BP_DIAS 68; BP_DIAS 85
[2022-03-29] MEDS: LEVOTHYROXINE 50MCG TABLET (0.05MG) PO SCH (05:55)
[2022-03-29 06:37] LABS: BASO % 0.1 % (0.0-1.0); EOS # 0.1 10^3/uL (0.0-0.5); EOS % 0.3 % (0.0-3.0); HEMATOCRIT 33.4 % (36.0-47.0); LYMPH # 1.1 10^3/uL (1.5-5.0); LYMPH % 7.2 % (24.0-44.0); MEAN CORPUSCULAR HEMOGLOBIN 27.3 pg (27.0-33.0); MEAN CORPUSCULAR HGB CONC 29.9 g/dl (32.0-36.5); MEAN CORPUSCULAR VOLUME 91.3 fl (80.0-96.0); MONO % 10.3 % (2.0-8.0); NEUTROPHILS # 12.8 10^3/uL (1.5-8.5); NEUTROPHILS % 81.2 % (36.0-66.0); PLATELET COUNT, AUTOMATED 340 10^3/uL (150-450); RED BLOOD COUNT 3.66 10^6/uL (4.00-5.40); WHITE BLOOD COUNT 15.8 10^3/uL (4.0-10.0)
[2022-03-29 06:47] LABS: INR 3.11; PROTHROMBIN TIME 32.5 SECONDS (12.5-14.5)
[2022-03-29 06:50] LABS: MONO # 1.6 10^3/uL (0.0-0.8)
[2022-03-29 07:07] LABS: MAGNESIUM LEVEL 1.6 MG/DL (1.8-2.4)
[2022-03-29 07:08] LABS: ALBUMIN 2.7 G/DL (3.2-5.2); ALKALINE PHOSPHATASE 178 U/L (46-116); ALT/SGPT 132 U/L (7.0-40); AST/SGOT 38 U/L (<34); BILIRUBIN,TOTAL 0.7 MG/DL (0.3-1.2); BLOOD UREA NITROGEN 26 MG/DL (9-23); CALCIUM LEVEL 8.2 MG/DL (8.3-10.6); CARBON DIOXIDE LEVEL 34 MMOL/L (20-31); CHLORIDE LEVEL 92 MMOL/L (98-107); CREATININE FOR GFR 0.88 MG/DL (0.55-1.30); GLOMERULAR FILTRATION RATE > 60.0 (>39); GLUCOSE, FASTING 252 MG/DL (74-106); POTASSIUM SERUM 4.1 MMOL/L (3.5-5.1); SODIUM LEVEL 132 MMOL/L (136-145); TOTAL PROTEIN 5.8 G/DL (5.7-8.2)
[2022-03-29] MEDS ORDERED: MIDODRINE 2.5 MG TAB PO SCH (08:00)
[2022-03-29] MEDS: INSULIN LISPRO (NovoLOG) PER UNIT SC SCH ×4 (08:29→21:00)
[2022-03-29] MEDS: NICOTINE 21MG/24HR 1 EA TRANSDERMAL TD SCH (08:29)
[2022-03-29] MEDS: FUROSEMIDE 40MG/4ML VIAL IV SCH ×2 (08:30→15:36)
[2022-03-29] MEDS: MAGNESIUM OXIDE 400MG TAB (MAG-OX) PO SCH ×2 (08:31→20:09)
[2022-03-29] MEDS: PANTOPRAZOLE 40MG TAB (PROTONIX) PO SCH (08:31)
[2022-03-29] MEDS ORDERED: MAGNESIUM OXIDE 400MG TAB (MAG-OX) PO SCH (09:00)
[2022-03-29 14:59] VITALS: BP 151/80
[2022-03-29] MEDS: predniSONE 20 MG TAB PO SCH (15:35)
[2022-03-29] MEDS: PERCOCET 5MG/325MG TAB PO PRN (15:36)
[2022-03-29] MEDS: PRAMIPEXOLE (MIRAPEX) 0.125 MG TAB PO SCH (17:08)
[2022-03-29] MEDS: BISOPROLOL FUM 2.5 MG PER 1/2TAB PO SCH (17:08)
[2022-03-29] MEDS: RIVAROXABAN 20MG TAB (XARELTO) PO SCH (17:09)
[2022-03-29] MEDS: AZITHROMYCIN 250MG TABLET PO SCH (17:09)
[2022-03-29] MEDS: VENLAFAXINE **XR** 75MG CAPSULE PO SCH (17:09)
[2022-03-29] MEDS: MONTELUKAST 10 MG TAB PO SCH (20:09)
[2022-03-29] MEDS: LIDOCAINE 5% (LIDODERM) PATCH TD SCH (20:09)
[2022-03-29] MEDS: THIAMINE 100 MG TAB PO SCH (20:09)
[2022-03-29] MEDS: RAMELTEON 8 MG TAB (ROZEREM) PO PRN (20:12)
[2022-03-29] MEDS: CYCLOBENZAPRINE 5MG TABLET PO PRN (20:12)
[2022-03-29 22:00] VITALS: BP 138/75
[2022-03-30] MEDS: LEVOTHYROXINE 50MCG TABLET (0.05MG) PO SCH (04:58)
[2022-03-30 06:00] VITALS: BP 138/68
[2022-03-30 06:25] LABS: HEMATOCRIT 32.5 % (36.0-47.0); HEMOGLOBIN 9.7 g/dl (12.0-15.5); LYMPH # 0.8 10^3/uL (1.5-5.0); LYMPH % 6.5 % (24.0-44.0); MEAN CORPUSCULAR HEMOGLOBIN 27.4 pg (27.0-33.0); MEAN CORPUSCULAR HGB CONC 29.8 g/dl (32.0-36.5); MEAN CORPUSCULAR VOLUME 91.8 fl (80.0-96.0); MONO # 1.2 10^3/uL (0.0-0.8); MONO % 9.6 % (2.0-8.0); NEUTROPHILS # 10.4 10^3/uL (1.5-8.5); NEUTROPHILS % 83.4 % (36.0-66.0); PLATELET COUNT, AUTOMATED 297 10^3/uL (150-450); RED BLOOD COUNT 3.54 10^6/uL (4.00-5.40); WHITE BLOOD COUNT 12.5 10^3/uL (4.0-10.0)
[2022-03-30 06:48] LABS: MAGNESIUM LEVEL 1.6 MG/DL (1.8-2.4)
[2022-03-30 06:53] LABS: ALBUMIN 2.5 G/DL (3.2-5.2); ALKALINE PHOSPHATASE 149 U/L (46-116); ALT/SGPT 96 U/L (7.0-40); AST/SGOT 26 U/L (<34); BILIRUBIN,TOTAL 0.7 MG/DL (0.3-1.2); BLOOD UREA NITROGEN 28 MG/DL (9-23); CALCIUM LEVEL 8.2 MG/DL (8.3-10.6); CARBON DIOXIDE LEVEL 35 MMOL/L (20-31); CHLORIDE LEVEL 93 MMOL/L (98-107); CREATININE FOR GFR 0.86 MG/DL (0.55-1.30); GLOMERULAR FILTRATION RATE > 60.0 (>39); GLUCOSE, FASTING 306 MG/DL (74-106); SODIUM LEVEL 133 MMOL/L (136-145); TOTAL PROTEIN 5.2 G/DL (5.7-8.2)
[2022-03-30 07:57] LABS: PHOSPHORUS LEVEL 3.2 MG/DL (2.4-5.1)
[2022-03-30] MEDS ORDERED: MAG SULF 1GM/100ML (MAG RUN) 1 GM in IV 1 EA IV ONE (08:00)
[2022-03-30 08:47] VITALS: BP 138/69
[2022-03-30] MEDS: FUROSEMIDE 40MG/4ML VIAL IV SCH ×2 (08:53→16:24)
[2022-03-30] MEDS: predniSONE 20 MG TAB PO SCH (08:57)
[2022-03-30] MEDS: MAGNESIUM OXIDE 400MG TAB (MAG-OX) PO SCH ×3 (08:57→22:14)
[2022-03-30] MEDS: NICOTINE 21MG/24HR 1 EA TRANSDERMAL TD SCH (08:57)
[2022-03-30] MEDS: LEVEMIR (INSULIN DETEMIR) 1 UNITS/0.01ML SC SCH (08:58)
[2022-03-30] MEDS: PANTOPRAZOLE 40MG TAB (PROTONIX) PO SCH (08:58)
[2022-03-30] MEDS: INSULIN LISPRO (NovoLOG) PER UNIT SC SCH ×4 (08:59→22:15)
[2022-03-30 16:00] VITALS: BP 143/68
[2022-03-30] MEDS: VENLAFAXINE **XR** 75MG CAPSULE PO SCH (18:34)
[2022-03-30] MEDS: RIVAROXABAN 10MG TAB (XARELTO) PO SCH (18:34)
[2022-03-30] MEDS: BISOPROLOL FUM 2.5 MG PER 1/2TAB PO SCH (18:35)
[2022-03-30] MEDS: PRAMIPEXOLE (MIRAPEX) 0.125 MG TAB PO SCH (18:36)
[2022-03-30 20:30] VITALS: BP 146/71
[2022-03-30] MEDS ORDERED: RAMELTEON 8 MG TAB (ROZEREM) PO SCH (21:00)
[2022-03-30] MEDS: MONTELUKAST 10 MG TAB PO SCH (22:14)
[2022-03-30] MEDS: CYCLOBENZAPRINE 5MG TABLET PO PRN (22:14)
[2022-03-30] MEDS: THIAMINE 100 MG TAB PO SCH (22:14)
[2022-03-30] MEDS: LIDOCAINE 5% (LIDODERM) PATCH TD SCH (22:16)
[2022-03-31] MEDS: PERCOCET 5MG/325MG TAB PO PRN ×2 (04:12→13:03)
[2022-03-31] MEDS: LEVOTHYROXINE 50MCG TABLET (0.05MG) PO SCH (05:50)
[2022-03-31 06:00] VITALS: BP 147/69
[2022-03-31 06:29] LABS: BASO % 0.1 % (0.0-1.0); EOS # 0.1 10^3/uL (0.0-0.5); EOS % 0.3 % (0.0-3.0); HEMATOCRIT 34.2 % (36.0-47.0); HEMOGLOBIN 10.1 g/dl (12.0-15.5); LYMPH # 1.3 10^3/uL (1.5-5.0); LYMPH % 7.2 % (24.0-44.0); MEAN CORPUSCULAR HEMOGLOBIN 27.2 pg (27.0-33.0); MEAN CORPUSCULAR HGB CONC 29.5 g/dl (32.0-36.5); MEAN CORPUSCULAR VOLUME 91.9 fl (80.0-96.0); NEUTROPHILS # 14.4 10^3/uL (1.5-8.5); NEUTROPHILS % 81.8 % (36.0-66.0); PLATELET COUNT, AUTOMATED 311 10^3/uL (150-450); RED BLOOD COUNT 3.72 10^6/uL (4.00-5.40); WHITE BLOOD COUNT 17.6 10^3/uL (4.0-10.0)
[2022-03-31 06:47] LABS: MAGNESIUM LEVEL 1.8 MG/DL (1.8-2.4)
[2022-03-31 06:49] LABS: ALBUMIN 2.7 G/DL (3.2-5.2); ALKALINE PHOSPHATASE 145 U/L (46-116); ALT/SGPT 84 U/L (7.0-40); AST/SGOT 24 U/L (<34); BILIRUBIN,TOTAL 0.6 MG/DL (0.3-1.2); BLOOD UREA NITROGEN 31 MG/DL (9-23); CALCIUM LEVEL 8.2 MG/DL (8.3-10.6); CARBON DIOXIDE LEVEL 36 MMOL/L (20-31); CHLORIDE LEVEL 94 MMOL/L (98-107); CREATININE FOR GFR 0.92 MG/DL (0.55-1.30); GLOMERULAR FILTRATION RATE > 60.0 (>39); GLUCOSE, FASTING 283 MG/DL (74-106); POTASSIUM SERUM 4.2 MMOL/L (3.5-5.1); SODIUM LEVEL 133 MMOL/L (136-145); TOTAL PROTEIN 5.7 G/DL (5.7-8.2)
[2022-03-31 06:51] LABS: INR 1.64; PROTHROMBIN TIME 19.7 SECONDS (12.5-14.5)
[2022-03-31 07:10] LABS: MONO # 1.8 10^3/uL (0.0-0.8)
[2022-03-31] MEDS: INSULIN LISPRO (NovoLOG) PER UNIT SC SCH ×4 (08:31→20:41)
[2022-03-31] MEDS: LEVEMIR (INSULIN DETEMIR) 1 UNITS/0.01ML SC SCH (08:32)
[2022-03-31] MEDS: FUROSEMIDE 40MG/4ML VIAL IV SCH ×2 (08:33→17:42)
[2022-03-31] MEDS: PANTOPRAZOLE 40MG TAB (PROTONIX) PO SCH (08:33)
[2022-03-31] MEDS: MAGNESIUM OXIDE 400MG TAB (MAG-OX) PO SCH ×3 (08:34→20:40)
[2022-03-31] MEDS: NICOTINE 21MG/24HR 1 EA TRANSDERMAL TD SCH (08:37)
[2022-03-31 08:40] VITALS: BP 147/71
[2022-03-31 14:00] VITALS: BP 139/67
[2022-03-31] MEDS: VENLAFAXINE **XR** 75MG CAPSULE PO SCH (17:39)
[2022-03-31] MEDS: PRAMIPEXOLE (MIRAPEX) 0.125 MG TAB PO SCH (17:39)
[2022-03-31] MEDS: BISOPROLOL FUM 2.5 MG PER 1/2TAB PO SCH (17:40)
[2022-03-31] MEDS: RIVAROXABAN 10MG TAB (XARELTO) PO SCH (17:42)
[2022-03-31 20:18] VITALS: BP 129/75
[2022-03-31] MEDS: MONTELUKAST 10 MG TAB PO SCH (20:40)
[2022-03-31] MEDS: THIAMINE 100 MG TAB PO SCH (20:40)
[2022-03-31] MEDS: traZODone 25MG PER 1/2 TABLET PO SCH (20:40)
[2022-03-31] MEDS: LIDOCAINE 5% (LIDODERM) PATCH TD SCH (20:42)
[2022-03-31] MEDS: CYCLOBENZAPRINE 5MG TABLET PO PRN (22:44)
[2022-04-01] MEDS ORDERED: BISACODYL 5MG TAB PO PRN (03:30)
[2022-04-01] MEDS: LEVOTHYROXINE 50MCG TABLET (0.05MG) PO SCH (05:43)
[2022-04-01] MEDS: DOCUSATE SODIUM 100MG CAPSULE PO SCH ×2 (05:43→21:15)
[2022-04-01 06:00] VITALS: BP 112/63
[2022-04-01 06:25] LABS: BASO % 0.1 % (0.0-1.0); EOS # 0.1 10^3/uL (0.0-0.5); EOS % 0.5 % (0.0-3.0); HEMATOCRIT 33.7 % (36.0-47.0); HEMOGLOBIN 9.9 g/dl (12.0-15.5); LYMPH # 1.3 10^3/uL (1.5-5.0); LYMPH % 8.8 % (24.0-44.0); MEAN CORPUSCULAR HEMOGLOBIN 26.8 pg (27.0-33.0); MEAN CORPUSCULAR HGB CONC 29.4 g/dl (32.0-36.5); MEAN CORPUSCULAR VOLUME 91.3 fl (80.0-96.0); MONO # 1.1 10^3/uL (0.0-0.8); MONO % 7.8 % (2.0-8.0); NEUTROPHILS # 11.7 10^3/uL (1.5-8.5); NEUTROPHILS % 82.2 % (36.0-66.0); PLATELET COUNT, AUTOMATED 281 10^3/uL (150-450); RED BLOOD COUNT 3.69 10^6/uL (4.00-5.40); WHITE BLOOD COUNT 14.3 10^3/uL (4.0-10.0)
[2022-04-01 06:37] LABS: INR 1.55; PROTHROMBIN TIME 18.9 SECONDS (12.5-14.5)
[2022-04-01 06:51] LABS: MAGNESIUM LEVEL 1.8 MG/DL (1.8-2.4)
[2022-04-01 06:53] LABS: ALBUMIN 2.6 G/DL (3.2-5.2); ALKALINE PHOSPHATASE 134 U/L (46-116); ALT/SGPT 66 U/L (7.0-40); AST/SGOT 24 U/L (<34); BILIRUBIN,TOTAL 0.6 MG/DL (0.3-1.2); BLOOD UREA NITROGEN 29 MG/DL (9-23); CALCIUM LEVEL 8.2 MG/DL (8.3-10.6); CARBON DIOXIDE LEVEL 30 MMOL/L (20-31); CHLORIDE LEVEL 95 MMOL/L (98-107); GLOMERULAR FILTRATION RATE > 60.0 (>39); GLUCOSE, FASTING 221 MG/DL (74-106); POTASSIUM SERUM 4.1 MMOL/L (3.5-5.1); SODIUM LEVEL 135 MMOL/L (136-145); TOTAL PROTEIN 5.5 G/DL (5.7-8.2)
[2022-04-01] MEDS: INSULIN LISPRO (NovoLOG) PER UNIT SC SCH ×4 (08:27→21:00)
[2022-04-01 08:28] VITALS: BP 148/76
[2022-04-01] MEDS: LEVEMIR (INSULIN DETEMIR) 1 UNITS/0.01ML SC SCH (08:28)
[2022-04-01] MEDS: NICOTINE 21MG/24HR 1 EA TRANSDERMAL TD SCH (08:32)
[2022-04-01] MEDS: PANTOPRAZOLE 40MG TAB (PROTONIX) PO SCH (08:32)
[2022-04-01] MEDS: FUROSEMIDE 40MG/4ML VIAL IV SCH ×2 (08:32→17:04)
[2022-04-01] MEDS: MAGNESIUM OXIDE 400MG TAB (MAG-OX) PO SCH ×3 (08:33→21:15)
[2022-04-01] MEDS: metFORMIN (GLUCOPHAGE) 500MG TAB PO SCH ×2 (09:47→17:01)
[2022-04-01 15:14] VITALS: BP 147/76
[2022-04-01] MEDS: PRAMIPEXOLE (MIRAPEX) 0.125 MG TAB PO SCH (17:02)
[2022-04-01] MEDS: RIVAROXABAN 10MG TAB (XARELTO) PO SCH (17:02)
[2022-04-01] MEDS: VENLAFAXINE **XR** 75MG CAPSULE PO SCH (17:02)
[2022-04-01 17:03] VITALS: BP 145/59
[2022-04-01] MEDS: BISOPROLOL FUM 2.5 MG PER 1/2TAB PO SCH (17:03)
[2022-04-01] MEDS: PERCOCET 5MG/325MG TAB PO PRN ×2 (17:07→21:14)
[2022-04-01 20:29] VITALS: BP 127/61
[2022-04-01] MEDS: CYCLOBENZAPRINE 5MG TABLET PO PRN (21:14)
[2022-04-01] MEDS: THIAMINE 100 MG TAB PO SCH (21:15)
[2022-04-01] MEDS: traZODone 25MG PER 1/2 TABLET PO SCH (21:15)
[2022-04-01] MEDS: MONTELUKAST 10 MG TAB PO SCH (21:15)
[2022-04-01] MEDS: LIDOCAINE 5% (LIDODERM) PATCH TD SCH (21:15)
[2022-04-02] MEDS: LEVOTHYROXINE 50MCG TABLET (0.05MG) PO SCH (05:32)
[2022-04-02 06:01] VITALS: BP 138/60
[2022-04-02 06:45] LABS: BASO % 0.3 % (0.0-1.0); EOS # 0.1 10^3/uL (0.0-0.5); EOS % 0.7 % (0.0-3.0); HEMOGLOBIN 10.4 g/dl (12.0-15.5); LYMPH # 1.4 10^3/uL (1.5-5.0); LYMPH % 10.7 % (24.0-44.0); MEAN CORPUSCULAR HEMOGLOBIN 26.9 pg (27.0-33.0); MEAN CORPUSCULAR HGB CONC 28.9 g/dl (32.0-36.5); MONO # 1.3 10^3/uL (0.0-0.8); MONO % 9.3 % (2.0-8.0); NEUTROPHILS # 10.5 10^3/uL (1.5-8.5); NEUTROPHILS % 78.4 % (36.0-66.0); PLATELET COUNT, AUTOMATED 296 10^3/uL (150-450); RED BLOOD COUNT 3.87 10^6/uL (4.00-5.40); WHITE BLOOD COUNT 13.4 10^3/uL (4.0-10.0)
[2022-04-02 06:59] LABS: INR 1.53; PROTHROMBIN TIME 18.7 SECONDS (12.5-14.5)
[2022-04-02 07:14] LABS: MAGNESIUM LEVEL 2.2 MG/DL (1.8-2.4)
[2022-04-02] MEDS: PANTOPRAZOLE 40MG TAB (PROTONIX) PO SCH (08:00)
[2022-04-02] MEDS: INSULIN LISPRO (NovoLOG) PER UNIT SC SCH (08:00)
[2022-04-02] MEDS: MAGNESIUM OXIDE 400MG TAB (MAG-OX) PO SCH (08:01)
[2022-04-02] MEDS: FUROSEMIDE 40MG/4ML VIAL IV SCH (08:01)
[2022-04-02] MEDS: metFORMIN (GLUCOPHAGE) 500MG TAB PO SCH (08:01)
[2022-04-02] MEDS: DOCUSATE SODIUM 100MG CAPSULE PO SCH (08:01)
[2022-04-02] MEDS: NICOTINE 21MG/24HR 1 EA TRANSDERMAL TD SCH (08:02)
[2022-04-02 08:03] VITALS: BP 139/77
[2022-04-02] MEDS ORDERED: XARE10TA PO (08:10)
[2022-04-02] MEDS ORDERED: MAGN400T2 PO (08:10)
[2022-04-02] MEDS ORDERED: COLA100C5 PO (08:10)
[2022-04-02] MEDS ORDERED: NICO21PAT TD (08:10)
[2022-04-02 08:17] LABS: ALBUMIN 2.8 G/DL (3.2-5.2); BILIRUBIN,TOTAL 0.7 MG/DL (0.3-1.2); CALCIUM LEVEL 8.8 MG/DL (8.3-10.6); CREATININE FOR GFR 1.09 MG/DL (0.55-1.30); POTASSIUM SERUM 4.5 MMOL/L (3.5-5.1)
== END 2022-04-02 11:48 | disposition home or self-care (01) | DRG 291 ==
LOC: EDBD 22:55 → M ED 22:55 → M ED INP 03-26 03:06 → CANRESERV 03-27 12:50 → ENRESERV 03-27 12:50 → M MSPAV 03-27 16:16
PROVIDERS: ADMIT Internal Medicine; ATTEND Internal Medicine
DX: I11.0 Hypertensive heart disease with heart failure (principal); I50.33 Acute on chronic diastolic (congestive) heart failure; J84.9 Interstitial pulmonary disease, unspecified; G93.40 Encephalopathy, unspecified; J44.1 Chronic obstructive pulmonary disease with (acute) exacerbation; I48.20 Chronic atrial fibrillation, unspecified; R74.01 Elevation of levels of liver transaminase levels; F17.200 Nicotine dependence, unspecified, uncomplicated; E11.9 Type 2 diabetes mellitus without complications; E03.9 Hypothyroidism, unspecified; K71.9 Toxic liver disease, unspecified; F32.A Depression, unspecified; G47.00 Insomnia, unspecified; M54.9 Dorsalgia, unspecified; Z79.891 Long term (current) use of opiate analgesic; Z90.49 Acquired absence of other specified parts of digestive tract; Z90.79 Acquired absence of other genital organ(s); Z79.890 Hormone replacement therapy; Z79.84 Long term (current) use of oral hypoglycemic drugs; Z79.52 Long term (current) use of systemic steroids; Z79.899 Other long term (current) drug therapy; Z88.1 Allergy status to other antibiotic agents; Z88.8 Allergy status to other drugs, medicaments and biological substances; Z91.018 Allergy to other foods; Z91.048 Other nonmedicinal substance allergy status; Z66 Do not resuscitate; T36.1X5A Adverse effect of cephalosporins and other beta-lactam antibiotics, initial encounter; E87.5 Hyperkalemia; I27.29 Other secondary pulmonary hypertension; E83.42 Hypomagnesemia; F03.90 Unspecified dementia, unspecified severity, without behavioral disturbance, psychotic disturbance, mood disturbance, and anxiety; D72.829 Elevated white blood cell count, unspecified

== ENCOUNTER → 2022-04-12 | Outpatient (CLI) | payer MEDICARE, MEDICAID ==
[~2022-04-12] MED LIST changes: +BASA100I SC; +COLA100C5 PO; +MELA5TAB10 PO; +VITA100T28 PO; +XARE10TA PO
== END ==
LOC: M RAD 08:31 → M LAB 08:31
PROVIDERS: ATTEND Physician Assistant
DX: I70.293 Other atherosclerosis of native arteries of extremities, bilateral legs (principal); Z48.812 Encounter for surgical aftercare following surgery on the circulatory system; R59.1 Generalized enlarged lymph nodes; I25.9 Chronic ischemic heart disease, unspecified; E11.69 Type 2 diabetes mellitus with other specified complication; D64.9 Anemia, unspecified

== ENCOUNTER → 2022-04-12 | Outpatient (CLI) | payer MEDICARE, MEDICAID ==
[2022-04-12 10:31] LABS: BASO # 0.1 10^3/uL (0.0-0.2); BASO % 0.8 % (0.0-1.0); EOS # 0.1 10^3/uL (0.0-0.5); EOS % 1.6 % (0.0-3.0); HEMATOCRIT 32.2 % (36.0-47.0); HEMOGLOBIN 9.1 g/dl (12.0-15.5); LYMPH # 0.9 10^3/uL (1.5-5.0); MEAN CORPUSCULAR HGB CONC 28.3 g/dl (32.0-36.5); MONO # 0.9 10^3/uL (0.0-0.8); MONO % 11.7 % (2.0-8.0); NEUTROPHILS # 5.5 10^3/uL (1.5-8.5); NEUTROPHILS % 73.5 % (36.0-66.0); PLATELET COUNT, AUTOMATED 312 10^3/uL (150-450); WHITE BLOOD COUNT 7.4 10^3/uL (4.0-10.0)
[2022-04-12 10:49] LABS: INR 2.13; PROTHROMBIN TIME 24.2 SECONDS (12.5-14.5)
[2022-04-12 11:10] LABS: THYROID STIMULATING HORMONE 4.825 uIU/ML (0.55-4.78)
[2022-04-12 11:13] LABS: ALBUMIN 2.9 G/DL (3.2-5.2); BILIRUBIN,TOTAL 0.7 MG/DL (0.3-1.2); CALCIUM LEVEL 8.5 MG/DL (8.3-10.6); CREATININE FOR GFR 1.1 MG/DL (0.55-1.30); GLOMERULAR FILTRATION RATE 51.4 (>39); POTASSIUM SERUM 4.5 MMOL/L (3.5-5.1); TOTAL PROTEIN 6.2 G/DL (5.7-8.2)
== END ==
LOC: M LAB 08:55
PROVIDERS: ATTEND Family Medicine
DX: I25.9 Chronic ischemic heart disease, unspecified (principal); E11.9 Type 2 diabetes mellitus without complications; D64.9 Anemia, unspecified; I42.9 Cardiomyopathy, unspecified

== ENCOUNTER 2022-04-16 13:38 | Inpatient (IN) | payer MEDICARE, MEDICAID ==
[~2022-04-16] VITALS: Ht 162.6 cm; Wt 60.3 kg
[~2022-04-16 13:38] MED LIST changes: -BASA100I SC
[2022-04-16] MEDS ORDERED: IPRATROPIUM 0.5MG/ALBUTEROL 2.5MG INH SOL UD 3ML (DUONEB) NEB ONE (14:20)
[2022-04-16 14:59] LABS: BASO % 0.6 % (0.0-1.0); EOS # 0.1 10^3/uL (0.0-0.5); EOS % 1.8 % (0.0-3.0); HEMATOCRIT 34.6 % (36.0-47.0); HEMOGLOBIN 9.9 g/dl (12.0-15.5); LYMPH # 0.7 10^3/uL (1.5-5.0); LYMPH % 10.7 % (24.0-44.0); MEAN CORPUSCULAR HEMOGLOBIN 26.5 pg (27.0-33.0); MEAN CORPUSCULAR HGB CONC 28.6 g/dl (32.0-36.5); MEAN CORPUSCULAR VOLUME 92.8 fl (80.0-96.0); MONO # 0.9 10^3/uL (0.0-0.8); MONO % 12.7 % (2.0-8.0); NEUTROPHILS # 5.1 10^3/uL (1.5-8.5); NEUTROPHILS % 73.9 % (36.0-66.0); PLATELET COUNT, AUTOMATED 324 10^3/uL (150-450); RED BLOOD COUNT 3.73 10^6/uL (4.00-5.40); WHITE BLOOD COUNT 6.8 10^3/uL (4.0-10.0)
[2022-04-16 15:06] LABS: ABG HCO3 27.2 MEQ/L (22.0-26.0); ABG O2 SATURATION 94.9 % (95.0-99.0); ABG PARTIAL PRESSURE CO2 40.2 mmHg (35.0-45.0); ABG PARTIAL PRESSURE O2 76.9 mmHg (75.0-100.0); ABG STANDARD HCO3 27.1 MEQ/L (22.0-26.0); ABG TOTAL CO2 28.4 MEQ/L (23.0-31.0); ABG pH (ARTERIAL) 7.448 UNITS (7.350-7.450)
[2022-04-16 15:14] LABS: ALBUMIN 3.1 G/DL (3.2-5.2); BILIRUBIN,DIRECT 0.4 MG/DL (<0.4); BILIRUBIN,TOTAL 0.7 MG/DL (0.3-1.2); CALCIUM LEVEL 8.4 MG/DL (8.3-10.6); CREATININE FOR GFR 0.97 MG/DL (0.55-1.30); GLOMERULAR FILTRATION RATE 59.4 (>39); TOTAL PROTEIN 7.6 G/DL (5.7-8.2)
[2022-04-16 15:15] LABS: INR 1.35; MB/CK RELATIVE INDEX 6.45 (< OR =4); PROTHROMBIN TIME 16.9 SECONDS (12.5-14.5)
[2022-04-16] MEDS ORDERED: FUROSEMIDE 40MG/4ML VIAL IV ONE (15:15)
[2022-04-16 15:16] LABS: THYROID STIMULATING HORMONE 4.415 uIU/ML (0.55-4.78)
[2022-04-16 15:24] LABS: RSV AMPLIFICATION NEGATIVE (NEGATIVE)
[2022-04-16] MEDS ORDERED: DEXTROSE 50% 50ML SYRINGE IV PRN (16:15)
[2022-04-16] MEDS ORDERED: MOM 30ML SUSPENSION UDC PO PRN (16:15)
[2022-04-16] MEDS ORDERED: IPRATROPIUM 0.5MG/ALBUTEROL 2.5MG INH SOL UD 3ML (DUONEB) NEB PRN (16:15)
[2022-04-16] MEDS ORDERED: MAALOX 30 ML SUSP *UDC PO PRN (16:15)
[2022-04-16] MEDS ORDERED: GLUCOSE 4GM CHEW TABLET PO PRN (16:15)
[2022-04-16] MEDS ORDERED: GLUCAGON INJ 1MG VIAL SC PRN (16:15)
[2022-04-16] MEDS ORDERED: XARE10TA PO (16:20)
[2022-04-16] MEDS ORDERED: BASA100I SC (16:20)
[2022-04-16] MEDS ORDERED: ALBUTEROL 90 MCG/ACT 8GM HFA INHALER INH PRN (16:20)
[2022-04-16] MEDS ORDERED: MAGN400T2 PO (16:20)
[2022-04-16] MEDS ORDERED: COLA100C5 PO (16:20)
[2022-04-16] MEDS ORDERED: HOME MED LIST COMPLETE! XX SCH (16:25)
[2022-04-16] MEDS: INSULIN LISPRO (NovoLOG) PER UNIT SC SCH ×2 (17:30→21:44)
[2022-04-16] MEDS: RIVAROXABAN 15MG TAB (XARELTO) PO SCH (18:34)
[2022-04-16 19:51] LABS: CK-MB VALUE MASS 1.4 NG/ML (<3.6)
[2022-04-16] MEDS: IPRATROPIUM 0.5MG/ALBUTEROL 2.5MG INH SOL UD 3ML (DUONEB) NEB SCH (20:03)
[2022-04-16] MEDS: CYCLOBENZAPRINE 5MG TABLET PO SCH (21:32)
[2022-04-16] MEDS: VENLAFAXINE **XR** 75MG CAPSULE PO SCH (21:32)
[2022-04-16] MEDS: THIAMINE 100 MG TAB PO SCH (21:33)
[2022-04-16] MEDS: PANTOPRAZOLE 40MG TAB (PROTONIX) PO SCH (21:33)
[2022-04-16] MEDS: DOCUSATE SODIUM 100MG CAPSULE PO SCH (21:33)
[2022-04-16] MEDS: PERCOCET 5MG/325MG TAB PO PRN (21:34)
[2022-04-16] MEDS: MAGNESIUM OXIDE 400MG TAB (MAG-OX) PO SCH (21:35)
[2022-04-16] MEDS: PRAMIPEXOLE 0.25 MG TAB PO SCH (21:36)
[2022-04-16] MEDS: BISOPROLOL FUM 2.5 MG PER 1/2TAB PO SCH (21:36)
[2022-04-16] MEDS: LEVEMIR (INSULIN DETEMIR) 1 UNITS/0.01ML SC SCH (22:38)
[2022-04-16] MEDS: FUROSEMIDE 40MG/4ML VIAL IV SCH (23:31)
[2022-04-17] MEDS: IPRATROPIUM 0.5MG/ALBUTEROL 2.5MG INH SOL UD 3ML (DUONEB) NEB SCH ×4 (02:00→19:26)
[2022-04-17 02:17] LABS: CK-MB VALUE MASS 1.4 NG/ML (<3.6)
[2022-04-17 02:18] LABS: MB/CK RELATIVE INDEX 4.11 (< OR =4)
[2022-04-17 06:15] LABS: BASO # 0.1 10^3/uL (0.0-0.2); EOS # 0.1 10^3/uL (0.0-0.5); EOS % 1.1 % (0.0-3.0); HEMATOCRIT 30.4 % (36.0-47.0); HEMOGLOBIN 8.7 g/dl (12.0-15.5); LYMPH # 0.9 10^3/uL (1.5-5.0); LYMPH % 11.9 % (24.0-44.0); MEAN CORPUSCULAR HEMOGLOBIN 26.5 pg (27.0-33.0); MEAN CORPUSCULAR HGB CONC 28.6 g/dl (32.0-36.5); MEAN CORPUSCULAR VOLUME 92.7 fl (80.0-96.0); MONO % 13.4 % (2.0-8.0); NEUTROPHILS # 5.2 10^3/uL (1.5-8.5); NEUTROPHILS % 72.2 % (36.0-66.0); PLATELET COUNT, AUTOMATED 303 10^3/uL (150-450); RED BLOOD COUNT 3.28 10^6/uL (4.00-5.40); WHITE BLOOD COUNT 7.2 10^3/uL (4.0-10.0)
[2022-04-17] MEDS: LEVOTHYROXINE 50MCG TABLET (0.05MG) PO SCH (06:30)
[2022-04-17 06:44] LABS: C REACTIVE PROTEIN QUANTITATIV 1.2 MG/DL (<1.0)
[2022-04-17 06:45] LABS: CALCIUM LEVEL 8.4 MG/DL (8.3-10.6); CREATININE FOR GFR 1.05 MG/DL (0.55-1.30); GLOMERULAR FILTRATION RATE 54.2 (>39); POTASSIUM SERUM 4.8 MMOL/L (3.5-5.1)
[2022-04-17] MEDS: INSULIN LISPRO (NovoLOG) PER UNIT SC SCH ×4 (08:35→20:31)
[2022-04-17] MEDS: FUROSEMIDE 40MG/4ML VIAL IV SCH ×2 (08:36→15:34)
[2022-04-17 09:40] VITALS: BP 146/70
[2022-04-17] MEDS: SPIRONOLACTONE 25 MG TAB PO SCH (10:12)
[2022-04-17] MEDS: PANTOPRAZOLE 40MG TAB (PROTONIX) PO SCH ×2 (10:13→20:31)
[2022-04-17] MEDS: FERROUS SULFATE 325MG TAB PO SCH (10:13)
[2022-04-17] MEDS: DOCUSATE SODIUM 100MG CAPSULE PO SCH ×2 (10:13→20:32)
[2022-04-17] MEDS: MIRALAX *UNIT DOSE* 17GM PACKET PO SCH (10:14)
[2022-04-17] MEDS: MAGNESIUM OXIDE 400MG TAB (MAG-OX) PO SCH ×3 (10:17→20:33)
[2022-04-17 12:00] VITALS: BP 152/76
[2022-04-17 16:00] VITALS: BP 163/72
[2022-04-17] MEDS: RIVAROXABAN 15MG TAB (XARELTO) PO SCH (17:57)
[2022-04-17 20:00] VITALS: BP 188/75
[2022-04-17] MEDS: LEVEMIR (INSULIN DETEMIR) 1 UNITS/0.01ML SC SCH (20:31)
[2022-04-17] MEDS: PRAMIPEXOLE 0.25 MG TAB PO SCH (20:32)
[2022-04-17] MEDS: CYCLOBENZAPRINE 5MG TABLET PO SCH (20:32)
[2022-04-17] MEDS: BISOPROLOL FUM 2.5 MG PER 1/2TAB PO SCH (20:33)
[2022-04-17] MEDS: PERCOCET 5MG/325MG TAB PO PRN (20:33)
[2022-04-17] MEDS: VENLAFAXINE **XR** 75MG CAPSULE PO SCH (20:33)
[2022-04-17] MEDS: THIAMINE 100 MG TAB PO SCH (20:33)
[2022-04-17] MEDS: RAMELTEON 8 MG TAB (ROZEREM) PO PRN (22:09)
[2022-04-18] VITALS (11 sets, daily range): BP systolic 120–178; BP diastolic 58–83; O2SAT 95–97
[2022-04-18] MEDS ORDERED: amLODIPine 5 MG TAB PO ONE (00:55)
[2022-04-18] MEDS: IPRATROPIUM 0.5MG/ALBUTEROL 2.5MG INH SOL UD 3ML (DUONEB) NEB SCH ×4 (01:55→20:03)
[2022-04-18 05:53] LABS: HEMATOCRIT 31.2 % (36.0-47.0); MEAN CORPUSCULAR HEMOGLOBIN 26.4 pg (27.0-33.0); MEAN CORPUSCULAR HGB CONC 28.8 g/dl (32.0-36.5); MEAN CORPUSCULAR VOLUME 91.5 fl (80.0-96.0); PLATELET COUNT, AUTOMATED 280 10^3/uL (150-450); RED BLOOD COUNT 3.41 10^6/uL (4.00-5.40); WHITE BLOOD COUNT 8.7 10^3/uL (4.0-10.0)
[2022-04-18 06:34] LABS: ALBUMIN 2.7 G/DL (3.2-5.2); BILIRUBIN,TOTAL 0.8 MG/DL (0.3-1.2); CALCIUM LEVEL 8.8 MG/DL (8.3-10.6); CREATININE FOR GFR 1.08 MG/DL (0.55-1.30); GLOMERULAR FILTRATION RATE 52.5 (>39); POTASSIUM SERUM 3.7 MMOL/L (3.5-5.1); TOTAL PROTEIN 5.9 G/DL (5.7-8.2)
[2022-04-18] MEDS: LEVOTHYROXINE 50MCG TABLET (0.05MG) PO SCH (06:34)
[2022-04-18] MEDS: FUROSEMIDE 40MG/4ML VIAL IV SCH ×3 (06:35→16:09)
[2022-04-18] MEDS: INSULIN LISPRO (NovoLOG) PER UNIT SC SCH ×4 (07:30→20:14)
[2022-04-18] MEDS: MIRALAX *UNIT DOSE* 17GM PACKET PO SCH (08:36)
[2022-04-18] MEDS: PANTOPRAZOLE 40MG TAB (PROTONIX) PO SCH ×2 (08:38→20:16)
[2022-04-18] MEDS: DOCUSATE SODIUM 100MG CAPSULE PO SCH ×2 (08:38→20:18)
[2022-04-18] MEDS: FERROUS SULFATE 325MG TAB PO SCH (08:38)
[2022-04-18] MEDS: SPIRONOLACTONE 25 MG TAB PO SCH (08:39)
[2022-04-18] MEDS: MAGNESIUM OXIDE 400MG TAB (MAG-OX) PO SCH ×3 (08:40→20:16)
[2022-04-18] MEDS: RIVAROXABAN 15MG TAB (XARELTO) PO SCH (17:13)
[2022-04-18] MEDS: CYCLOBENZAPRINE 5MG TABLET PO SCH (20:16)
[2022-04-18] MEDS: THIAMINE 100 MG TAB PO SCH (20:16)
[2022-04-18] MEDS: LEVEMIR (INSULIN DETEMIR) 1 UNITS/0.01ML SC SCH (20:17)
[2022-04-18] MEDS: VENLAFAXINE **XR** 75MG CAPSULE PO SCH (20:18)
[2022-04-18] MEDS: PRAMIPEXOLE 0.25 MG TAB PO SCH (20:18)
[2022-04-18] MEDS: BISOPROLOL FUM 2.5 MG PER 1/2TAB PO SCH (20:18)
[2022-04-19] VITALS (19 sets, daily range): BP systolic 117–150; BP diastolic 57–89; O2SAT 90–99
[2022-04-19] MEDS: FUROSEMIDE 40MG/4ML VIAL IV SCH ×3 (00:10→14:59)
[2022-04-19] MEDS: ACETAMINOPHEN TAB 650MG DOSE (2X325MG) PO PRN (00:40)
[2022-04-19] MEDS: IPRATROPIUM 0.5MG/ALBUTEROL 2.5MG INH SOL UD 3ML (DUONEB) NEB SCH ×4 (01:51→19:26)
[2022-04-19] MEDS: LEVOTHYROXINE 50MCG TABLET (0.05MG) PO SCH (05:34)
[2022-04-19] MEDS: INSULIN LISPRO (NovoLOG) PER UNIT SC SCH ×4 (07:30→21:51)
[2022-04-19 08:17] LABS: BASO % 0.5 % (0.0-1.0); EOS # 0.1 10^3/uL (0.0-0.5); EOS % 1.4 % (0.0-3.0); HEMATOCRIT 31.1 % (36.0-47.0); HEMOGLOBIN 8.7 g/dl (12.0-15.5); LYMPH % 11.6 % (24.0-44.0); MEAN CORPUSCULAR VOLUME 92.8 fl (80.0-96.0); MONO # 1.1 10^3/uL (0.0-0.8); MONO % 12.6 % (2.0-8.0); NEUTROPHILS # 6.2 10^3/uL (1.5-8.5); NEUTROPHILS % 73.5 % (36.0-66.0); PLATELET COUNT, AUTOMATED 277 10^3/uL (150-450); RED BLOOD COUNT 3.35 10^6/uL (4.00-5.40); WHITE BLOOD COUNT 8.4 10^3/uL (4.0-10.0)
[2022-04-19 08:38] LABS: MAGNESIUM LEVEL 2.2 MG/DL (1.8-2.4)
[2022-04-19 08:40] LABS: ALBUMIN 2.7 G/DL (3.2-5.2); BILIRUBIN,TOTAL 0.8 MG/DL (0.3-1.2); CALCIUM LEVEL 8.6 MG/DL (8.3-10.6); CREATININE FOR GFR 1.1 MG/DL (0.55-1.30); GLOMERULAR FILTRATION RATE 51.4 (>39); POTASSIUM SERUM 3.8 MMOL/L (3.5-5.1); TOTAL PROTEIN 5.8 G/DL (5.7-8.2)
[2022-04-19] MEDS: MIRALAX *UNIT DOSE* 17GM PACKET PO SCH (08:40)
[2022-04-19] MEDS: SPIRONOLACTONE 25 MG TAB PO SCH (08:40)
[2022-04-19] MEDS: PANTOPRAZOLE 40MG TAB (PROTONIX) PO SCH ×2 (08:40→21:44)
[2022-04-19] MEDS: FERROUS SULFATE 325MG TAB PO SCH (08:40)
[2022-04-19] MEDS: DOCUSATE SODIUM 100MG CAPSULE PO SCH ×2 (08:40→21:43)
[2022-04-19] MEDS: MAGNESIUM OXIDE 400MG TAB (MAG-OX) PO SCH ×3 (08:41→21:44)
[2022-04-19] MEDS: PERCOCET 5MG/325MG TAB PO PRN ×2 (08:42→21:45)
[2022-04-19] MEDS: RIVAROXABAN 15MG TAB (XARELTO) PO SCH (17:27)
[2022-04-19] MEDS: LEVEMIR (INSULIN DETEMIR) 1 UNITS/0.01ML SC SCH (21:42)
[2022-04-19] MEDS: CYCLOBENZAPRINE 5MG TABLET PO SCH (21:43)
[2022-04-19] MEDS: PRAMIPEXOLE 0.25 MG TAB PO SCH (21:43)
[2022-04-19] MEDS: VENLAFAXINE **XR** 75MG CAPSULE PO SCH (21:44)
[2022-04-19] MEDS: BISOPROLOL FUM 2.5 MG PER 1/2TAB PO SCH (21:44)
[2022-04-19] MEDS: THIAMINE 100 MG TAB PO SCH (21:45)
[2022-04-20] MEDS: IPRATROPIUM 0.5MG/ALBUTEROL 2.5MG INH SOL UD 3ML (DUONEB) NEB SCH ×4 (02:00→19:51)
[2022-04-20] MEDS: LEVOTHYROXINE 50MCG TABLET (0.05MG) PO SCH (06:34)
[2022-04-20 08:00] VITALS: BP 121/59
[2022-04-20] MEDS: INSULIN LISPRO (NovoLOG) PER UNIT SC SCH ×4 (09:04→20:40)
[2022-04-20] MEDS: PERCOCET 5MG/325MG TAB PO PRN ×3 (09:16→23:50)
[2022-04-20] MEDS: MIRALAX *UNIT DOSE* 17GM PACKET PO SCH (09:16)
[2022-04-20] MEDS: FUROSEMIDE 40 MG TAB PO SCH (09:17)
[2022-04-20] MEDS: SPIRONOLACTONE 25 MG TAB PO SCH (09:17)
[2022-04-20] MEDS: DOCUSATE SODIUM 100MG CAPSULE PO SCH ×2 (09:17→20:37)
[2022-04-20] MEDS: MAGNESIUM OXIDE 400MG TAB (MAG-OX) PO SCH ×3 (09:17→20:40)
[2022-04-20] MEDS: FERROUS SULFATE 325MG TAB PO SCH (09:17)
[2022-04-20] MEDS: PANTOPRAZOLE 40MG TAB (PROTONIX) PO SCH ×2 (09:17→20:39)
[2022-04-20] MEDS: RIVAROXABAN 15MG TAB (XARELTO) PO SCH (17:18)
[2022-04-20 17:47] LABS: HEMOGLOBIN A1c 8.6 % (4.0-6.0)
[2022-04-20 20:00] VITALS: BP 123/58
[2022-04-20] MEDS: THIAMINE 100 MG TAB PO SCH (20:37)
[2022-04-20] MEDS: VENLAFAXINE **XR** 75MG CAPSULE PO SCH (20:37)
[2022-04-20] MEDS: BISOPROLOL FUM 2.5 MG PER 1/2TAB PO SCH (20:38)
[2022-04-20] MEDS: PRAMIPEXOLE 0.25 MG TAB PO SCH (20:39)
[2022-04-20] MEDS: LEVEMIR (INSULIN DETEMIR) 1 UNITS/0.01ML SC SCH (20:41)
[2022-04-20] MEDS: CYCLOBENZAPRINE 5MG TABLET PO SCH (20:42)
[2022-04-20 23:40] VITALS: BP 111/83
[2022-04-21] MEDS: IPRATROPIUM 0.5MG/ALBUTEROL 2.5MG INH SOL UD 3ML (DUONEB) NEB SCH ×4 (02:00→20:56)
[2022-04-21 05:30] VITALS: BP 125/68
[2022-04-21] MEDS: LEVOTHYROXINE 50MCG TABLET (0.05MG) PO SCH (05:36)
[2022-04-21] MEDS: INSULIN LISPRO (NovoLOG) PER UNIT SC SCH ×4 (07:30→20:39)
[2022-04-21] MEDS: PANTOPRAZOLE 40MG TAB (PROTONIX) PO SCH ×2 (08:03→21:01)
[2022-04-21] MEDS: MIRALAX *UNIT DOSE* 17GM PACKET PO SCH (08:03)
[2022-04-21] MEDS: SPIRONOLACTONE 25 MG TAB PO SCH (08:04)
[2022-04-21] MEDS: FUROSEMIDE 40 MG TAB PO SCH (08:04)
[2022-04-21] MEDS: FERROUS SULFATE 325MG TAB PO SCH (08:04)
[2022-04-21] MEDS: DOCUSATE SODIUM 100MG CAPSULE PO SCH ×2 (08:04→21:01)
[2022-04-21] MEDS: MAGNESIUM OXIDE 400MG TAB (MAG-OX) PO SCH ×3 (08:05→21:02)
[2022-04-21] MEDS: PERCOCET 5MG/325MG TAB PO PRN (08:07)
[2022-04-21] MEDS: RIVAROXABAN 15MG TAB (XARELTO) PO SCH (17:56)
[2022-04-21] MEDS: THIAMINE 100 MG TAB PO SCH (21:01)
[2022-04-21] MEDS: BISOPROLOL FUM 2.5 MG PER 1/2TAB PO SCH (21:01)
[2022-04-21] MEDS: CYCLOBENZAPRINE 5MG TABLET PO SCH (21:01)
[2022-04-21] MEDS: VENLAFAXINE **XR** 75MG CAPSULE PO SCH (21:01)
[2022-04-21] MEDS: RAMELTEON 8 MG TAB (ROZEREM) PO PRN (21:02)
[2022-04-21] MEDS: PRAMIPEXOLE 0.25 MG TAB PO SCH (21:02)
[2022-04-21] MEDS: LEVEMIR (INSULIN DETEMIR) 1 UNITS/0.01ML SC SCH (21:03)
[2022-04-22] MEDS: PERCOCET 5MG/325MG TAB PO PRN ×2 (00:41→21:14)
[2022-04-22] MEDS: IPRATROPIUM 0.5MG/ALBUTEROL 2.5MG INH SOL UD 3ML (DUONEB) NEB SCH ×4 (02:00→20:00)
[2022-04-22] MEDS: LEVOTHYROXINE 50MCG TABLET (0.05MG) PO SCH (05:39)
[2022-04-22 06:31] VITALS: BP 129/64
[2022-04-22] MEDS: FERROUS SULFATE 325MG TAB PO SCH (08:37)
[2022-04-22] MEDS: FUROSEMIDE 40 MG TAB PO SCH (08:37)
[2022-04-22] MEDS: MIRALAX *UNIT DOSE* 17GM PACKET PO SCH (08:37)
[2022-04-22] MEDS: MAGNESIUM OXIDE 400MG TAB (MAG-OX) PO SCH ×3 (08:37→21:12)
[2022-04-22] MEDS: PANTOPRAZOLE 40MG TAB (PROTONIX) PO SCH ×2 (08:37→21:11)
[2022-04-22] MEDS: DOCUSATE SODIUM 100MG CAPSULE PO SCH ×2 (08:37→21:11)
[2022-04-22] MEDS: SPIRONOLACTONE 25 MG TAB PO SCH (08:37)
[2022-04-22] MEDS: INSULIN LISPRO (NovoLOG) PER UNIT SC SCH ×4 (08:38→20:49)
[2022-04-22] MEDS: RIVAROXABAN 15MG TAB (XARELTO) PO SCH (17:47)
[2022-04-22] MEDS: RAMELTEON 8 MG TAB (ROZEREM) PO PRN (21:11)
[2022-04-22] MEDS: VENLAFAXINE **XR** 75MG CAPSULE PO SCH (21:11)
[2022-04-22] MEDS: PRAMIPEXOLE 0.25 MG TAB PO SCH (21:11)
[2022-04-22] MEDS: CEPACOL LOZENGE PO PRN (21:11)
[2022-04-22] MEDS: THIAMINE 100 MG TAB PO SCH (21:11)
[2022-04-22] MEDS: BISOPROLOL FUM 2.5 MG PER 1/2TAB PO SCH (21:12)
[2022-04-22] MEDS: CYCLOBENZAPRINE 5MG TABLET PO SCH (21:12)
[2022-04-22] MEDS: LEVEMIR (INSULIN DETEMIR) 1 UNITS/0.01ML SC SCH (21:13)
[2022-04-23] MEDS: CEPACOL LOZENGE PO PRN ×2 (01:01→20:26)
[2022-04-23] MEDS: IPRATROPIUM 0.5MG/ALBUTEROL 2.5MG INH SOL UD 3ML (DUONEB) NEB SCH ×4 (02:00→19:28)
[2022-04-23] MEDS: LEVOTHYROXINE 50MCG TABLET (0.05MG) PO SCH (05:36)
[2022-04-23 05:38] VITALS: BP 147/61
[2022-04-23] MEDS: SPIRONOLACTONE 25 MG TAB PO SCH (08:05)
[2022-04-23] MEDS: MIRALAX *UNIT DOSE* 17GM PACKET PO SCH (08:05)
[2022-04-23] MEDS: INSULIN LISPRO (NovoLOG) PER UNIT SC SCH ×4 (08:05→20:23)
[2022-04-23] MEDS: DOCUSATE SODIUM 100MG CAPSULE PO SCH ×2 (08:06→20:25)
[2022-04-23] MEDS: FERROUS SULFATE 325MG TAB PO SCH (08:06)
[2022-04-23] MEDS: MAGNESIUM OXIDE 400MG TAB (MAG-OX) PO SCH ×3 (08:06→20:25)
[2022-04-23] MEDS: FUROSEMIDE 40 MG TAB PO SCH (08:06)
[2022-04-23] MEDS: PANTOPRAZOLE 40MG TAB (PROTONIX) PO SCH ×2 (08:06→20:25)
[2022-04-23] MEDS: RIVAROXABAN 15MG TAB (XARELTO) PO SCH (17:36)
[2022-04-23] MEDS: PRAMIPEXOLE 0.25 MG TAB PO SCH (20:25)
[2022-04-23] MEDS: BISOPROLOL FUM 2.5 MG PER 1/2TAB PO SCH (20:25)
[2022-04-23] MEDS: RAMELTEON 8 MG TAB (ROZEREM) PO PRN (20:26)
[2022-04-23] MEDS: CYCLOBENZAPRINE 5MG TABLET PO SCH (20:26)
[2022-04-23] MEDS: THIAMINE 100 MG TAB PO SCH (20:26)
[2022-04-23] MEDS: VENLAFAXINE **XR** 75MG CAPSULE PO SCH (20:26)
[2022-04-23] MEDS: LEVEMIR (INSULIN DETEMIR) 1 UNITS/0.01ML SC SCH (20:27)
[2022-04-23] MEDS: PERCOCET 5MG/325MG TAB PO PRN (20:27)
[2022-04-24] MEDS: IPRATROPIUM 0.5MG/ALBUTEROL 2.5MG INH SOL UD 3ML (DUONEB) NEB SCH ×5 (01:48→19:05)
[2022-04-24] MEDS: LEVOTHYROXINE 50MCG TABLET (0.05MG) PO SCH (05:22)
[2022-04-24 06:00] VITALS: BP 130/63
[2022-04-24] MEDS: FUROSEMIDE 40 MG TAB PO SCH (08:38)
[2022-04-24] MEDS: PANTOPRAZOLE 40MG TAB (PROTONIX) PO SCH ×2 (08:38→20:13)
[2022-04-24] MEDS: INSULIN LISPRO (NovoLOG) PER UNIT SC SCH ×4 (08:38→20:23)
[2022-04-24] MEDS: SPIRONOLACTONE 25 MG TAB PO SCH (08:38)
[2022-04-24] MEDS: FERROUS SULFATE 325MG TAB PO SCH (08:39)
[2022-04-24] MEDS: MAGNESIUM OXIDE 400MG TAB (MAG-OX) PO SCH ×3 (08:39→20:14)
[2022-04-24] MEDS: DOCUSATE SODIUM 100MG CAPSULE PO SCH ×2 (08:39→20:13)
[2022-04-24] MEDS: MIRALAX *UNIT DOSE* 17GM PACKET PO SCH (08:40)
[2022-04-24] MEDS: CEPACOL LOZENGE PO PRN (08:40)
[2022-04-24] MEDS: RIVAROXABAN 15MG TAB (XARELTO) PO SCH (17:01)
[2022-04-24] MEDS: PRAMIPEXOLE 0.25 MG TAB PO SCH (20:12)
[2022-04-24] MEDS: THIAMINE 100 MG TAB PO SCH (20:13)
[2022-04-24] MEDS: VENLAFAXINE **XR** 75MG CAPSULE PO SCH (20:13)
[2022-04-24] MEDS: BISOPROLOL FUM 2.5 MG PER 1/2TAB PO SCH (20:14)
[2022-04-24] MEDS: CYCLOBENZAPRINE 5MG TABLET PO SCH (20:19)
[2022-04-24] MEDS: LEVEMIR (INSULIN DETEMIR) 1 UNITS/0.01ML SC SCH (20:22)
[2022-04-25] MEDS: IPRATROPIUM 0.5MG/ALBUTEROL 2.5MG INH SOL UD 3ML (DUONEB) NEB SCH ×2 (00:56→08:00)
[2022-04-25] MEDS: LEVOTHYROXINE 50MCG TABLET (0.05MG) PO SCH (05:31)
[2022-04-25 06:00] VITALS: BP 127/63
[2022-04-25 08:11] LABS: BASO # 0.1 10^3/uL (0.0-0.2); BASO % 1.2 % (0.0-1.0); EOS # 0.1 10^3/uL (0.0-0.5); EOS % 0.7 % (0.0-3.0); HEMATOCRIT 32.7 % (36.0-47.0); HEMOGLOBIN 9.4 g/dl (12.0-15.5); LYMPH # 0.8 10^3/uL (1.5-5.0); LYMPH % 11.8 % (24.0-44.0); MEAN CORPUSCULAR HGB CONC 28.7 g/dl (32.0-36.5); MEAN CORPUSCULAR VOLUME 90.6 fl (80.0-96.0); MONO # 0.9 10^3/uL (0.0-0.8); MONO % 13.5 % (2.0-8.0); NEUTROPHILS % 72.4 % (36.0-66.0); PLATELET COUNT, AUTOMATED 256 10^3/uL (150-450); RED BLOOD COUNT 3.61 10^6/uL (4.00-5.40); WHITE BLOOD COUNT 6.9 10^3/uL (4.0-10.0)
[2022-04-25 08:37] LABS: MAGNESIUM LEVEL 2.2 MG/DL (1.8-2.4)
[2022-04-25 08:42] LABS: ALBUMIN 2.9 G/DL (3.2-5.2); CALCIUM LEVEL 8.1 MG/DL (8.3-10.6); CREATININE FOR GFR 1.22 MG/DL (0.55-1.30); GLOMERULAR FILTRATION RATE 45.6 (>39); POTASSIUM SERUM 5.4 MMOL/L (3.5-5.1); TOTAL PROTEIN 6.1 G/DL (5.7-8.2)
[2022-04-25] MEDS: INSULIN LISPRO (NovoLOG) PER UNIT SC SCH ×4 (09:12→21:00)
[2022-04-25] MEDS: MAGNESIUM OXIDE 400MG TAB (MAG-OX) PO SCH ×3 (09:14→21:20)
[2022-04-25] MEDS: MIRALAX *UNIT DOSE* 17GM PACKET PO SCH (09:14)
[2022-04-25] MEDS: FUROSEMIDE 40 MG TAB PO SCH (09:15)
[2022-04-25] MEDS: FERROUS SULFATE 325MG TAB PO SCH (09:15)
[2022-04-25] MEDS: DOCUSATE SODIUM 100MG CAPSULE PO SCH ×2 (09:15→21:20)
[2022-04-25] MEDS: PANTOPRAZOLE 40MG TAB (PROTONIX) PO SCH ×2 (09:15→21:20)
[2022-04-25] MEDS: SPIRONOLACTONE 25 MG TAB PO SCH (09:16)
[2022-04-25] MEDS ORDERED: SOD POLYSTYRENE SULFONATE SUSP 15GM 60ML UD PO ONE (11:00)
[2022-04-25] MEDS ORDERED: FUROSEMIDE 40 MG TAB PO SCH (17:00)
[2022-04-25] MEDS: RIVAROXABAN 15MG TAB (XARELTO) PO SCH (17:05)
[2022-04-25] MEDS: PRAMIPEXOLE 0.25 MG TAB PO SCH (21:20)
[2022-04-25] MEDS: THIAMINE 100 MG TAB PO SCH (21:20)
[2022-04-25] MEDS: CYCLOBENZAPRINE 5MG TABLET PO SCH (21:20)
[2022-04-25] MEDS: RAMELTEON 8 MG TAB (ROZEREM) PO PRN (21:20)
[2022-04-25] MEDS: VENLAFAXINE **XR** 75MG CAPSULE PO SCH (21:20)
[2022-04-25] MEDS: BISOPROLOL FUM 2.5 MG PER 1/2TAB PO SCH (21:23)
[2022-04-26] MEDS: LEVOTHYROXINE 50MCG TABLET (0.05MG) PO SCH (05:18)
[2022-04-26 05:55] LABS: BASO # 0.1 10^3/uL (0.0-0.2); BASO % 0.8 % (0.0-1.0); EOS % 0.4 % (0.0-3.0); HEMATOCRIT 31.9 % (36.0-47.0); HEMOGLOBIN 9.2 g/dl (12.0-15.5); LYMPH % 13.9 % (24.0-44.0); MEAN CORPUSCULAR HEMOGLOBIN 25.7 pg (27.0-33.0); MEAN CORPUSCULAR HGB CONC 28.8 g/dl (32.0-36.5); MEAN CORPUSCULAR VOLUME 89.1 fl (80.0-96.0); MONO # 1.2 10^3/uL (0.0-0.8); MONO % 15.9 % (2.0-8.0); NEUTROPHILS # 5.1 10^3/uL (1.5-8.5); NEUTROPHILS % 68.6 % (36.0-66.0); PLATELET COUNT, AUTOMATED 265 10^3/uL (150-450); RED BLOOD COUNT 3.58 10^6/uL (4.00-5.40); WHITE BLOOD COUNT 7.5 10^3/uL (4.0-10.0)
[2022-04-26 06:00] VITALS: BP 114/60
[2022-04-26 06:05] LABS: MAGNESIUM LEVEL 2.3 MG/DL (1.8-2.4)
[2022-04-26 06:07] LABS: CALCIUM LEVEL 8.7 MG/DL (8.3-10.6); CREATININE FOR GFR 1.35 MG/DL (0.55-1.30); GLOMERULAR FILTRATION RATE 40.6 (>39); POTASSIUM SERUM 5.2 MMOL/L (3.5-5.1)
[2022-04-26] MEDS: INSULIN LISPRO (NovoLOG) PER UNIT SC SCH ×3 (07:30→17:23)
[2022-04-26] MEDS ORDERED: SOD POLYSTYRENE SULFONATE SUSP 15GM 60ML UD PO ONE (08:00)
[2022-04-26] MEDS: DOCUSATE SODIUM 100MG CAPSULE PO SCH ×2 (09:24→20:29)
[2022-04-26] MEDS: MIRALAX *UNIT DOSE* 17GM PACKET PO SCH (09:24)
[2022-04-26] MEDS: FERROUS SULFATE 325MG TAB PO SCH (09:25)
[2022-04-26] MEDS: MAGNESIUM OXIDE 400MG TAB (MAG-OX) PO SCH ×3 (09:25→20:29)
[2022-04-26] MEDS: PANTOPRAZOLE 40MG TAB (PROTONIX) PO SCH ×2 (09:25→20:29)
[2022-04-26] MEDS: RIVAROXABAN 15MG TAB (XARELTO) PO SCH (17:22)
[2022-04-26] MEDS: VENLAFAXINE **XR** 75MG CAPSULE PO SCH (20:28)
[2022-04-26] MEDS: PRAMIPEXOLE 0.25 MG TAB PO SCH (20:29)
[2022-04-26] MEDS: THIAMINE 100 MG TAB PO SCH (20:29)
[2022-04-26] MEDS: CYCLOBENZAPRINE 5MG TABLET PO SCH (20:29)
[2022-04-26] MEDS: BISOPROLOL FUM 2.5 MG PER 1/2TAB PO SCH (20:32)
[2022-04-27] MEDS: CEPACOL LOZENGE PO PRN (02:46)
[2022-04-27 05:26] VITALS: BP 118/67
[2022-04-27] MEDS: LEVOTHYROXINE 50MCG TABLET (0.05MG) PO SCH (05:28)
[2022-04-27 05:56] LABS: BASO # 0.1 10^3/uL (0.0-0.2); BASO % 0.8 % (0.0-1.0); EOS # 0.1 10^3/uL (0.0-0.5); HEMATOCRIT 30.4 % (36.0-47.0); LYMPH # 1.1 10^3/uL (1.5-5.0); LYMPH % 19.1 % (24.0-44.0); MEAN CORPUSCULAR HEMOGLOBIN 26.2 pg (27.0-33.0); MEAN CORPUSCULAR HGB CONC 29.6 g/dl (32.0-36.5); MEAN CORPUSCULAR VOLUME 88.6 fl (80.0-96.0); MONO # 1.2 10^3/uL (0.0-0.8); MONO % 20.3 % (2.0-8.0); NEUTROPHILS # 3.5 10^3/uL (1.5-8.5); NEUTROPHILS % 58.3 % (36.0-66.0); PLATELET COUNT, AUTOMATED 254 10^3/uL (150-450); RED BLOOD COUNT 3.43 10^6/uL (4.00-5.40)
[2022-04-27 06:00] VITALS: BP 110/63
[2022-04-27 06:25] LABS: CALCIUM LEVEL 8.3 MG/DL (8.3-10.6); CREATININE FOR GFR 1.34 MG/DL (0.55-1.30); GLOMERULAR FILTRATION RATE 40.9 (>39); POTASSIUM SERUM 4.3 MMOL/L (3.5-5.1)
[2022-04-27] MEDS: INSULIN LISPRO (NovoLOG) PER UNIT SC SCH ×3 (07:30→17:28)
[2022-04-27] MEDS: MAGNESIUM OXIDE 400MG TAB (MAG-OX) PO SCH ×3 (09:12→21:51)
[2022-04-27] MEDS: PANTOPRAZOLE 40MG TAB (PROTONIX) PO SCH ×2 (09:13→21:51)
[2022-04-27] MEDS: FERROUS SULFATE 325MG TAB PO SCH (09:13)
[2022-04-27] MEDS: DOCUSATE SODIUM 100MG CAPSULE PO SCH ×2 (09:13→21:51)
[2022-04-27] MEDS: MIRALAX *UNIT DOSE* 17GM PACKET PO SCH (09:14)
[2022-04-27] MEDS: RIVAROXABAN 15MG TAB (XARELTO) PO SCH (17:27)
[2022-04-27] MEDS: CYCLOBENZAPRINE 5MG TABLET PO SCH (21:51)
[2022-04-27] MEDS: VENLAFAXINE **XR** 75MG CAPSULE PO SCH (21:51)
[2022-04-27] MEDS: PRAMIPEXOLE 0.25 MG TAB PO SCH (21:51)
[2022-04-27] MEDS: RAMELTEON 8 MG TAB (ROZEREM) PO PRN (21:51)
[2022-04-27] MEDS: THIAMINE 100 MG TAB PO SCH (21:51)
[2022-04-27] MEDS: PERCOCET 5MG/325MG TAB PO PRN (21:52)
[2022-04-27] MEDS: BISOPROLOL FUM 2.5 MG PER 1/2TAB PO SCH (21:52)
[2022-04-28] MEDS: LEVOTHYROXINE 50MCG TABLET (0.05MG) PO SCH (05:00)
[2022-04-28 05:49] LABS: BASO % 0.6 % (0.0-1.0); EOS # 0.1 10^3/uL (0.0-0.5); EOS % 0.9 % (0.0-3.0); HEMATOCRIT 33.2 % (36.0-47.0); HEMOGLOBIN 9.5 g/dl (12.0-15.5); LYMPH % 14.6 % (24.0-44.0); MEAN CORPUSCULAR HEMOGLOBIN 25.9 pg (27.0-33.0); MEAN CORPUSCULAR HGB CONC 28.6 g/dl (32.0-36.5); MEAN CORPUSCULAR VOLUME 90.5 fl (80.0-96.0); MONO # 1.2 10^3/uL (0.0-0.8); MONO % 16.8 % (2.0-8.0); NEUTROPHILS # 4.7 10^3/uL (1.5-8.5); NEUTROPHILS % 66.8 % (36.0-66.0); PLATELET COUNT, AUTOMATED 266 10^3/uL (150-450); RED BLOOD COUNT 3.67 10^6/uL (4.00-5.40)
[2022-04-28 06:00] VITALS: BP 149/65
[2022-04-28 06:10] LABS: CALCIUM LEVEL 8.3 MG/DL (8.3-10.6); CREATININE FOR GFR 1.41 MG/DL (0.55-1.30); GLOMERULAR FILTRATION RATE 38.6 (>39); POTASSIUM SERUM 4.6 MMOL/L (3.5-5.1)
[2022-04-28] MEDS: MAGNESIUM OXIDE 400MG TAB (MAG-OX) PO SCH ×3 (08:30→20:09)
[2022-04-28] MEDS: PANTOPRAZOLE 40MG TAB (PROTONIX) PO SCH ×2 (08:31→20:08)
[2022-04-28] MEDS: DOCUSATE SODIUM 100MG CAPSULE PO SCH ×2 (08:31→20:08)
[2022-04-28] MEDS: FERROUS SULFATE 325MG TAB PO SCH (08:31)
[2022-04-28] MEDS: INSULIN LISPRO (NovoLOG) PER UNIT SC SCH ×3 (08:32→17:58)
[2022-04-28] MEDS: MIRALAX *UNIT DOSE* 17GM PACKET PO SCH (09:00)
[2022-04-28] MEDS: RIVAROXABAN 15MG TAB (XARELTO) PO SCH (17:57)
[2022-04-28] MEDS: PRAMIPEXOLE 0.25 MG TAB PO SCH (20:08)
[2022-04-28] MEDS: BISOPROLOL FUM 2.5 MG PER 1/2TAB PO SCH (20:08)
[2022-04-28] MEDS: VENLAFAXINE **XR** 75MG CAPSULE PO SCH (20:09)
[2022-04-28] MEDS: CYCLOBENZAPRINE 5MG TABLET PO SCH (20:09)
[2022-04-28] MEDS: THIAMINE 100 MG TAB PO SCH (20:09)
[2022-04-29] MEDS: LEVOTHYROXINE 50MCG TABLET (0.05MG) PO SCH (05:39)
[2022-04-29 06:00] VITALS: BP 144/77
[2022-04-29 06:46] LABS: BASO # 0.1 10^3/uL (0.0-0.2); BASO % 0.8 % (0.0-1.0); EOS # 0.1 10^3/uL (0.0-0.5); EOS % 0.9 % (0.0-3.0); HEMATOCRIT 32.9 % (36.0-47.0); HEMOGLOBIN 9.3 g/dl (12.0-15.5); LYMPH % 12.8 % (24.0-44.0); MEAN CORPUSCULAR HGB CONC 28.3 g/dl (32.0-36.5); MEAN CORPUSCULAR VOLUME 91.9 fl (80.0-96.0); MONO % 13.6 % (2.0-8.0); NEUTROPHILS # 5.3 10^3/uL (1.5-8.5); NEUTROPHILS % 71.5 % (36.0-66.0); PLATELET COUNT, AUTOMATED 252 10^3/uL (150-450); RED BLOOD COUNT 3.58 10^6/uL (4.00-5.40); WHITE BLOOD COUNT 7.4 10^3/uL (4.0-10.0)
[2022-04-29 07:09] LABS: CREATININE FOR GFR 1.07 MG/DL (0.55-1.30); GLOMERULAR FILTRATION RATE 53.1 (>39); MAGNESIUM LEVEL 1.9 MG/DL (1.8-2.4); POTASSIUM SERUM 4.3 MMOL/L (3.5-5.1)
[2022-04-29] MEDS: DOCUSATE SODIUM 100MG CAPSULE PO SCH ×2 (08:54→20:12)
[2022-04-29] MEDS: MAGNESIUM OXIDE 400MG TAB (MAG-OX) PO SCH ×3 (08:54→20:14)
[2022-04-29] MEDS: MIRALAX *UNIT DOSE* 17GM PACKET PO SCH ×2 (08:55→09:00)
[2022-04-29] MEDS: INSULIN LISPRO (NovoLOG) PER UNIT SC SCH ×3 (08:57→17:15)
[2022-04-29 09:00] VITALS: BP 124/72
[2022-04-29] MEDS: FERROUS SULFATE 325MG TAB PO SCH (09:06)
[2022-04-29] MEDS: PANTOPRAZOLE 40MG TAB (PROTONIX) PO SCH ×2 (09:06→20:12)
[2022-04-29] MEDS: FUROSEMIDE 40 MG TAB PO SCH (09:08)
[2022-04-29 14:00] VITALS: BP 88/53
[2022-04-29 14:18] VITALS: BP 118/56
[2022-04-29] MEDS: RIVAROXABAN 15MG TAB (XARELTO) PO SCH (17:16)
[2022-04-29 20:02] VITALS: BP 137/72
[2022-04-29] MEDS: CYCLOBENZAPRINE 5MG TABLET PO SCH (20:13)
[2022-04-29] MEDS: BISOPROLOL FUM 2.5 MG PER 1/2TAB PO SCH (20:13)
[2022-04-29] MEDS: RAMELTEON 8 MG TAB (ROZEREM) PO PRN (20:13)
[2022-04-29] MEDS: PERCOCET 5MG/325MG TAB PO PRN (20:13)
[2022-04-29] MEDS: THIAMINE 100 MG TAB PO SCH (20:13)
[2022-04-29] MEDS: VENLAFAXINE **XR** 75MG CAPSULE PO SCH (20:13)
[2022-04-29] MEDS: PRAMIPEXOLE 0.25 MG TAB PO SCH (20:13)
[2022-04-30 05:44] VITALS: BP 147/87
[2022-04-30] MEDS: LEVOTHYROXINE 50MCG TABLET (0.05MG) PO SCH (06:03)
[2022-04-30 07:05] LABS: BASO # 0.1 10^3/uL (0.0-0.2); BASO % 1.1 % (0.0-1.0); EOS # 0.1 10^3/uL (0.0-0.5); HEMATOCRIT 34.2 % (36.0-47.0); HEMOGLOBIN 9.7 g/dl (12.0-15.5); LYMPH # 0.9 10^3/uL (1.5-5.0); LYMPH % 12.9 % (24.0-44.0); MEAN CORPUSCULAR HGB CONC 28.4 g/dl (32.0-36.5); MEAN CORPUSCULAR VOLUME 91.7 fl (80.0-96.0); MONO # 1.1 10^3/uL (0.0-0.8); NEUTROPHILS % 69.6 % (36.0-66.0); PLATELET COUNT, AUTOMATED 254 10^3/uL (150-450); RED BLOOD COUNT 3.73 10^6/uL (4.00-5.40); WHITE BLOOD COUNT 7.2 10^3/uL (4.0-10.0)
[2022-04-30] MEDS: INSULIN LISPRO (NovoLOG) PER UNIT SC SCH ×4 (07:30→22:21)
[2022-04-30 07:39] LABS: CALCIUM LEVEL 7.9 MG/DL (8.3-10.6); CREATININE FOR GFR 1.07 MG/DL (0.55-1.30); GLOMERULAR FILTRATION RATE 53.1 (>39); MAGNESIUM LEVEL 1.8 MG/DL (1.8-2.4); POTASSIUM SERUM 4.3 MMOL/L (3.5-5.1)
[2022-04-30] MEDS: DOCUSATE SODIUM 100MG CAPSULE PO SCH ×2 (08:07→20:35)
[2022-04-30] MEDS: MAGNESIUM OXIDE 400MG TAB (MAG-OX) PO SCH ×3 (08:07→20:37)
[2022-04-30] MEDS: SPIRONOLACTONE 25 MG TAB PO SCH (08:07)
[2022-04-30] MEDS: FUROSEMIDE 40 MG TAB PO SCH (08:07)
[2022-04-30] MEDS: PANTOPRAZOLE 40MG TAB (PROTONIX) PO SCH ×2 (08:08→20:37)
[2022-04-30] MEDS: MIRALAX *UNIT DOSE* 17GM PACKET PO SCH (08:08)
[2022-04-30] MEDS: FERROUS SULFATE 325MG TAB PO SCH (08:08)
[2022-04-30] MEDS: RIVAROXABAN 15MG TAB (XARELTO) PO SCH (17:11)
[2022-04-30] MEDS: RAMELTEON 8 MG TAB (ROZEREM) PO PRN (20:35)
[2022-04-30] MEDS: THIAMINE 100 MG TAB PO SCH (20:35)
[2022-04-30] MEDS: VENLAFAXINE **XR** 75MG CAPSULE PO SCH (20:35)
[2022-04-30] MEDS: PRAMIPEXOLE 0.25 MG TAB PO SCH (20:36)
[2022-04-30] MEDS: CYCLOBENZAPRINE 5MG TABLET PO SCH (20:37)
[2022-04-30] MEDS: BISOPROLOL FUM 2.5 MG PER 1/2TAB PO SCH (20:37)
[2022-04-30] MEDS: PERCOCET 5MG/325MG TAB PO PRN (20:38)
[2022-05-01 05:47] LABS: BASO # 0.1 10^3/uL (0.0-0.2); BASO % 1.2 % (0.0-1.0); EOS # 0.1 10^3/uL (0.0-0.5); EOS % 1.2 % (0.0-3.0); HEMATOCRIT 33.9 % (36.0-47.0); HEMOGLOBIN 9.6 g/dl (12.0-15.5); LYMPH # 1.1 10^3/uL (1.5-5.0); LYMPH % 17.3 % (24.0-44.0); MEAN CORPUSCULAR HEMOGLOBIN 25.8 pg (27.0-33.0); MEAN CORPUSCULAR HGB CONC 28.3 g/dl (32.0-36.5); MEAN CORPUSCULAR VOLUME 91.1 fl (80.0-96.0); NEUTROPHILS # 4.1 10^3/uL (1.5-8.5); PLATELET COUNT, AUTOMATED 246 10^3/uL (150-450); RED BLOOD COUNT 3.72 10^6/uL (4.00-5.40); WHITE BLOOD COUNT 6.4 10^3/uL (4.0-10.0)
[2022-05-01] MEDS: LEVOTHYROXINE 50MCG TABLET (0.05MG) PO SCH (05:50)
[2022-05-01 06:00] VITALS: BP 138/77
[2022-05-01 06:20] LABS: CALCIUM LEVEL 8.4 MG/DL (8.3-10.6); CREATININE FOR GFR 1.2 MG/DL (0.55-1.30); GLOMERULAR FILTRATION RATE 46.5 (>39); MAGNESIUM LEVEL 1.9 MG/DL (1.8-2.4); POTASSIUM SERUM 4.4 MMOL/L (3.5-5.1)
[2022-05-01] MEDS: MAGNESIUM OXIDE 400MG TAB (MAG-OX) PO SCH ×3 (08:54→20:42)
[2022-05-01] MEDS: SPIRONOLACTONE 25 MG TAB PO SCH (08:54)
[2022-05-01] MEDS: INSULIN LISPRO (NovoLOG) PER UNIT SC SCH ×4 (08:54→20:24)
[2022-05-01] MEDS: DOCUSATE SODIUM 100MG CAPSULE PO SCH ×2 (08:55→20:43)
[2022-05-01] MEDS: MIRALAX *UNIT DOSE* 17GM PACKET PO SCH (08:55)
[2022-05-01] MEDS: FERROUS SULFATE 325MG TAB PO SCH (08:55)
[2022-05-01] MEDS: PANTOPRAZOLE 40MG TAB (PROTONIX) PO SCH ×2 (08:55→20:43)
[2022-05-01] MEDS: FUROSEMIDE 40 MG TAB PO SCH (08:55)
[2022-05-01] MEDS: ACETAMINOPHEN TAB 650MG DOSE (2X325MG) PO PRN (08:56)
[2022-05-01] MEDS: RIVAROXABAN 15MG TAB (XARELTO) PO SCH (17:46)
[2022-05-01] MEDS: RAMELTEON 8 MG TAB (ROZEREM) PO PRN (20:42)
[2022-05-01] MEDS: PRAMIPEXOLE 0.25 MG TAB PO SCH (20:42)
[2022-05-01] MEDS: BISOPROLOL FUM 2.5 MG PER 1/2TAB PO SCH (20:42)
[2022-05-01] MEDS: PERCOCET 5MG/325MG TAB PO PRN (20:42)
[2022-05-01] MEDS: THIAMINE 100 MG TAB PO SCH (20:43)
[2022-05-01] MEDS: CYCLOBENZAPRINE 5MG TABLET PO SCH (20:43)
[2022-05-01] MEDS: VENLAFAXINE **XR** 75MG CAPSULE PO SCH (20:43)
[2022-05-02] MEDS: LEVOTHYROXINE 50MCG TABLET (0.05MG) PO SCH (05:10)
[2022-05-02 05:35] LABS: BASO # 0.1 10^3/uL (0.0-0.2); BASO % 0.6 % (0.0-1.0); EOS # 0.1 10^3/uL (0.0-0.5); EOS % 1.6 % (0.0-3.0); HEMATOCRIT 32.8 % (36.0-47.0); HEMOGLOBIN 9.2 g/dl (12.0-15.5); LYMPH # 1.2 10^3/uL (1.5-5.0); LYMPH % 14.2 % (24.0-44.0); MEAN CORPUSCULAR HEMOGLOBIN 25.6 pg (27.0-33.0); MEAN CORPUSCULAR VOLUME 91.1 fl (80.0-96.0); MONO % 11.9 % (2.0-8.0); NEUTROPHILS # 5.8 10^3/uL (1.5-8.5); NEUTROPHILS % 71.1 % (36.0-66.0); PLATELET COUNT, AUTOMATED 250 10^3/uL (150-450); WHITE BLOOD COUNT 8.2 10^3/uL (4.0-10.0)
[2022-05-02 05:58] LABS: CALCIUM LEVEL 8.4 MG/DL (8.3-10.6); CREATININE FOR GFR 1.14 MG/DL (0.55-1.30); GLOMERULAR FILTRATION RATE 49.3 (>39); MAGNESIUM LEVEL 1.8 MG/DL (1.8-2.4); POTASSIUM SERUM 5.2 MMOL/L (3.5-5.1)
[2022-05-02 06:00] VITALS: BP_SYST 132; BP_SYST 136; BP_DIAS 69; BP_DIAS 82
[2022-05-02] MEDS: INSULIN LISPRO (NovoLOG) PER UNIT SC SCH ×4 (08:48→20:57)
[2022-05-02] MEDS: MAGNESIUM OXIDE 400MG TAB (MAG-OX) PO SCH ×3 (08:49→21:08)
[2022-05-02] MEDS: PANTOPRAZOLE 40MG TAB (PROTONIX) PO SCH ×2 (08:50→21:09)
[2022-05-02] MEDS: FERROUS SULFATE 325MG TAB PO SCH (08:50)
[2022-05-02] MEDS: FUROSEMIDE 40 MG TAB PO SCH (08:50)
[2022-05-02] MEDS: DOCUSATE SODIUM 100MG CAPSULE PO SCH ×2 (08:50→21:08)
[2022-05-02] MEDS: PERCOCET 5MG/325MG TAB PO PRN ×2 (08:53→16:51)
[2022-05-02] MEDS: MIRALAX *UNIT DOSE* 17GM PACKET PO SCH (08:54)
[2022-05-02 10:00] VITALS: BP 136/82
[2022-05-02 14:00] VITALS: BP 142/81
[2022-05-02] MEDS: RIVAROXABAN 15MG TAB (XARELTO) PO SCH (16:48)
[2022-05-02] MEDS: CYCLOBENZAPRINE 5MG TABLET PO SCH (21:07)
[2022-05-02] MEDS: VENLAFAXINE **XR** 75MG CAPSULE PO SCH (21:07)
[2022-05-02] MEDS: THIAMINE 100 MG TAB PO SCH (21:07)
[2022-05-02] MEDS: PRAMIPEXOLE 0.25 MG TAB PO SCH (21:07)
[2022-05-02] MEDS: BISOPROLOL FUM 2.5 MG PER 1/2TAB PO SCH (21:08)
[2022-05-02] MEDS: RAMELTEON 8 MG TAB (ROZEREM) PO PRN (21:09)
[2022-05-03] MEDS: LEVOTHYROXINE 50MCG TABLET (0.05MG) PO SCH (05:24)
[2022-05-03 06:00] VITALS: BP 154/86
[2022-05-03 06:46] LABS: CALCIUM LEVEL 8.5 MG/DL (8.3-10.6); CREATININE FOR GFR 1.16 MG/DL (0.55-1.30); GLOMERULAR FILTRATION RATE 48.4 (>39); POTASSIUM SERUM 4.9 MMOL/L (3.5-5.1)
[2022-05-03] MEDS: INSULIN LISPRO (NovoLOG) PER UNIT SC SCH ×4 (08:20→20:50)
[2022-05-03] MEDS: FUROSEMIDE 40 MG TAB PO SCH (08:21)
[2022-05-03] MEDS: PANTOPRAZOLE 40MG TAB (PROTONIX) PO SCH ×2 (08:22→22:46)
[2022-05-03] MEDS: MAGNESIUM OXIDE 400MG TAB (MAG-OX) PO SCH ×3 (08:22→22:44)
[2022-05-03] MEDS: MIRALAX *UNIT DOSE* 17GM PACKET PO SCH (08:23)
[2022-05-03] MEDS: DOCUSATE SODIUM 100MG CAPSULE PO SCH ×2 (08:23→22:45)
[2022-05-03] MEDS: FERROUS SULFATE 325MG TAB PO SCH (08:24)
[2022-05-03] MEDS: RIVAROXABAN 15MG TAB (XARELTO) PO SCH (17:25)
[2022-05-03] MEDS: DAPAGLIFLOZIN PROPANEDIOL 10MG TABLET (FARXIGA) PO SCH (17:28)
[2022-05-03] MEDS: PRAMIPEXOLE 0.25 MG TAB PO SCH (22:44)
[2022-05-03] MEDS: RAMELTEON 8 MG TAB (ROZEREM) PO PRN (22:44)
[2022-05-03] MEDS: CYCLOBENZAPRINE 5MG TABLET PO SCH (22:44)
[2022-05-03] MEDS: THIAMINE 100 MG TAB PO SCH (22:45)
[2022-05-03] MEDS: VENLAFAXINE **XR** 75MG CAPSULE PO SCH (22:45)
[2022-05-03] MEDS: BISOPROLOL FUM 2.5 MG PER 1/2TAB PO SCH (23:10)
[2022-05-03] MEDS: PERCOCET 5MG/325MG TAB PO PRN (23:11)
[2022-05-04 05:26] LABS: SODIUM,RANDOM URINE < 10 MMOL/L
[2022-05-04 05:40] LABS: OSMOLALITY URINE 492 MOSM/KG (50-1400)
[2022-05-04] MEDS ORDERED: LEVOTHYROXINE 50MCG TABLET (0.05MG) As Ordered ONE (05:42)
[2022-05-04 05:47] VITALS: BP 152/83
[2022-05-04] MEDS: LEVOTHYROXINE 50MCG TABLET (0.05MG) PO SCH (05:48)
[2022-05-04] MEDS: MIRALAX *UNIT DOSE* 17GM PACKET PO SCH (08:20)
[2022-05-04] MEDS: FERROUS SULFATE 325MG TAB PO SCH (08:20)
[2022-05-04] MEDS: INSULIN LISPRO (NovoLOG) PER UNIT SC SCH ×4 (08:20→21:00)
[2022-05-04] MEDS: PANTOPRAZOLE 40MG TAB (PROTONIX) PO SCH ×2 (08:20→21:52)
[2022-05-04] MEDS: MAGNESIUM OXIDE 400MG TAB (MAG-OX) PO SCH ×3 (08:21→21:52)
[2022-05-04] MEDS: DAPAGLIFLOZIN PROPANEDIOL 10MG TABLET (FARXIGA) PO SCH (08:21)
[2022-05-04] MEDS: FUROSEMIDE 40 MG TAB PO SCH (08:21)
[2022-05-04] MEDS: DOCUSATE SODIUM 100MG CAPSULE PO SCH ×2 (08:21→21:52)
[2022-05-04] MEDS: ATORVASTATIN 20 MG TAB PO SCH (08:21)
[2022-05-04] MEDS: RIVAROXABAN 15MG TAB (XARELTO) PO SCH (17:10)
[2022-05-04 21:51] VITALS: BP 131/69
[2022-05-04] MEDS: THIAMINE 100 MG TAB PO SCH (21:52)
[2022-05-04] MEDS: PRAMIPEXOLE 0.25 MG TAB PO SCH (21:52)
[2022-05-04] MEDS: RAMELTEON 8 MG TAB (ROZEREM) PO PRN (21:52)
[2022-05-04] MEDS: PERCOCET 5MG/325MG TAB PO PRN (21:53)
[2022-05-04] MEDS: BISOPROLOL FUM 2.5 MG PER 1/2TAB PO SCH (21:54)
[2022-05-04] MEDS: VENLAFAXINE **XR** 75MG CAPSULE PO SCH (21:59)
[2022-05-04] MEDS: CYCLOBENZAPRINE 5MG TABLET PO SCH (21:59)
[2022-05-05 03:45] VITALS: BP 147/89
[2022-05-05] MEDS: LEVOTHYROXINE 50MCG TABLET (0.05MG) PO SCH (06:05)
[2022-05-05] MEDS: MIRALAX *UNIT DOSE* 17GM PACKET PO SCH (08:13)
[2022-05-05] MEDS: FERROUS SULFATE 325MG TAB PO SCH (08:13)
[2022-05-05] MEDS: DAPAGLIFLOZIN PROPANEDIOL 10MG TABLET (FARXIGA) PO SCH (08:13)
[2022-05-05] MEDS: ATORVASTATIN 20 MG TAB PO SCH (08:13)
[2022-05-05] MEDS: INSULIN LISPRO (NovoLOG) PER UNIT SC SCH ×4 (08:14→20:32)
[2022-05-05] MEDS: MAGNESIUM OXIDE 400MG TAB (MAG-OX) PO SCH ×3 (08:14→20:31)
[2022-05-05] MEDS: PANTOPRAZOLE 40MG TAB (PROTONIX) PO SCH ×2 (08:14→20:31)
[2022-05-05] MEDS: DOCUSATE SODIUM 100MG CAPSULE PO SCH ×2 (08:14→20:31)
[2022-05-05] MEDS: FUROSEMIDE 40 MG TAB PO SCH (08:15)
[2022-05-05] MEDS: RIVAROXABAN 15MG TAB (XARELTO) PO SCH (16:52)
[2022-05-05 18:20] VITALS: BP 146/66
[2022-05-05] MEDS: VENLAFAXINE **XR** 75MG CAPSULE PO SCH (20:30)
[2022-05-05] MEDS: BISOPROLOL FUM 2.5 MG PER 1/2TAB PO SCH (20:31)
[2022-05-05] MEDS: THIAMINE 100 MG TAB PO SCH (20:31)
[2022-05-05] MEDS: CYCLOBENZAPRINE 5MG TABLET PO SCH (20:31)
[2022-05-05] MEDS: RAMELTEON 8 MG TAB (ROZEREM) PO PRN (20:31)
[2022-05-05] MEDS: PRAMIPEXOLE 0.25 MG TAB PO SCH (20:31)
[2022-05-06] MEDS: PERCOCET 5MG/325MG TAB PO PRN ×2 (01:50→20:51)
[2022-05-06 05:27] VITALS: BP 143/65
[2022-05-06] MEDS: LEVOTHYROXINE 50MCG TABLET (0.05MG) PO SCH (05:27)
[2022-05-06] MEDS: INSULIN LISPRO (NovoLOG) PER UNIT SC SCH ×4 (07:56→20:21)
[2022-05-06] MEDS: PANTOPRAZOLE 40MG TAB (PROTONIX) PO SCH ×2 (07:58→20:48)
[2022-05-06] MEDS: ATORVASTATIN 20 MG TAB PO SCH (07:58)
[2022-05-06] MEDS: FERROUS SULFATE 325MG TAB PO SCH (07:58)
[2022-05-06] MEDS: DOCUSATE SODIUM 100MG CAPSULE PO SCH ×2 (07:58→20:48)
[2022-05-06] MEDS: FUROSEMIDE 40 MG TAB PO SCH (07:58)
[2022-05-06] MEDS: DAPAGLIFLOZIN PROPANEDIOL 10MG TABLET (FARXIGA) PO SCH (07:58)
[2022-05-06] MEDS: MIRALAX *UNIT DOSE* 17GM PACKET PO SCH (07:59)
[2022-05-06] MEDS: MAGNESIUM OXIDE 400MG TAB (MAG-OX) PO SCH ×3 (07:59→20:49)
[2022-05-06] MEDS: RIVAROXABAN 15MG TAB (XARELTO) PO SCH (17:27)
[2022-05-06] MEDS: VENLAFAXINE **XR** 75MG CAPSULE PO SCH (20:48)
[2022-05-06] MEDS: THIAMINE 100 MG TAB PO SCH (20:48)
[2022-05-06] MEDS: CYCLOBENZAPRINE 5MG TABLET PO SCH (20:48)
[2022-05-06] MEDS: RAMELTEON 8 MG TAB (ROZEREM) PO PRN (20:48)
[2022-05-06] MEDS: PRAMIPEXOLE 0.25 MG TAB PO SCH (20:50)
[2022-05-06] MEDS: BISOPROLOL FUM 2.5 MG PER 1/2TAB PO SCH (20:59)
[2022-05-07 05:00] VITALS: BP 178/94
[2022-05-07] MEDS: LEVOTHYROXINE 50MCG TABLET (0.05MG) PO SCH (05:22)
[2022-05-07 05:25] VITALS: BP 146/72
[2022-05-07] MEDS: FUROSEMIDE 40 MG TAB PO SCH (08:27)
[2022-05-07] MEDS: DAPAGLIFLOZIN PROPANEDIOL 10MG TABLET (FARXIGA) PO SCH (08:27)
[2022-05-07] MEDS: FERROUS SULFATE 325MG TAB PO SCH (08:28)
[2022-05-07] MEDS: ATORVASTATIN 20 MG TAB PO SCH (08:28)
[2022-05-07] MEDS: DOCUSATE SODIUM 100MG CAPSULE PO SCH ×2 (08:28→20:50)
[2022-05-07] MEDS: MAGNESIUM OXIDE 400MG TAB (MAG-OX) PO SCH ×3 (08:28→20:51)
[2022-05-07] MEDS: PANTOPRAZOLE 40MG TAB (PROTONIX) PO SCH ×2 (08:28→20:50)
[2022-05-07] MEDS: INSULIN LISPRO (NovoLOG) PER UNIT SC SCH ×4 (08:29→20:39)
[2022-05-07] MEDS: MIRALAX *UNIT DOSE* 17GM PACKET PO SCH (08:32)
[2022-05-07 13:27] LABS: HEMATOCRIT 36.4 % (36.0-47.0); HEMOGLOBIN 10.1 g/dl (12.0-15.5); MEAN CORPUSCULAR HEMOGLOBIN 25.8 pg (27.0-33.0); MEAN CORPUSCULAR HGB CONC 27.7 g/dl (32.0-36.5); MEAN CORPUSCULAR VOLUME 93.1 fl (80.0-96.0); PLATELET COUNT, AUTOMATED 263 10^3/uL (150-450); RED BLOOD COUNT 3.91 10^6/uL (4.00-5.40)
[2022-05-07 13:54] LABS: CALCIUM LEVEL 9.1 MG/DL (8.3-10.6); CREATININE FOR GFR 1.27 MG/DL (0.55-1.30); GLOMERULAR FILTRATION RATE 43.6 (>39); POTASSIUM SERUM 4.5 MMOL/L (3.5-5.1)
[2022-05-07] MEDS: RIVAROXABAN 15MG TAB (XARELTO) PO SCH (18:04)
[2022-05-07] MEDS: VENLAFAXINE **XR** 75MG CAPSULE PO SCH (20:50)
[2022-05-07] MEDS: THIAMINE 100 MG TAB PO SCH (20:50)
[2022-05-07] MEDS: CYCLOBENZAPRINE 5MG TABLET PO SCH (20:51)
[2022-05-07] MEDS: PRAMIPEXOLE 0.25 MG TAB PO SCH (20:51)
[2022-05-07] MEDS: BISOPROLOL FUM 2.5 MG PER 1/2TAB PO SCH (20:52)
[2022-05-08] MEDS: LEVOTHYROXINE 50MCG TABLET (0.05MG) PO SCH (05:26)
[2022-05-08 06:00] VITALS: BP 142/72
[2022-05-08] MEDS: INSULIN LISPRO (NovoLOG) PER UNIT SC SCH ×4 (07:22→21:00)
[2022-05-08] MEDS: PANTOPRAZOLE 40MG TAB (PROTONIX) PO SCH ×2 (08:00→21:15)
[2022-05-08] MEDS: DOCUSATE SODIUM 100MG CAPSULE PO SCH ×2 (08:00→21:15)
[2022-05-08] MEDS: DAPAGLIFLOZIN PROPANEDIOL 10MG TABLET (FARXIGA) PO SCH (08:00)
[2022-05-08] MEDS: MAGNESIUM OXIDE 400MG TAB (MAG-OX) PO SCH ×3 (08:00→21:15)
[2022-05-08] MEDS: FUROSEMIDE 40 MG TAB PO SCH (08:00)
[2022-05-08] MEDS: FERROUS SULFATE 325MG TAB PO SCH (08:00)
[2022-05-08] MEDS: MIRALAX *UNIT DOSE* 17GM PACKET PO SCH (08:00)
[2022-05-08] MEDS: ATORVASTATIN 20 MG TAB PO SCH (08:00)
[2022-05-08] MEDS: RIVAROXABAN 15MG TAB (XARELTO) PO SCH (17:58)
[2022-05-08] MEDS: BISOPROLOL FUM 2.5 MG PER 1/2TAB PO SCH (21:00)
[2022-05-08] MEDS: PRAMIPEXOLE 0.25 MG TAB PO SCH (21:15)
[2022-05-08] MEDS: CYCLOBENZAPRINE 5MG TABLET PO SCH (21:15)
[2022-05-08] MEDS: VENLAFAXINE **XR** 75MG CAPSULE PO SCH (21:15)
[2022-05-08] MEDS: THIAMINE 100 MG TAB PO SCH (21:15)
[2022-05-08 22:00] VITALS: BP 106/73
[2022-05-09] MEDS: LEVOTHYROXINE 50MCG TABLET (0.05MG) PO SCH (05:54)
[2022-05-09 06:00] VITALS: BP 146/86
[2022-05-09] MEDS: MIRALAX *UNIT DOSE* 17GM PACKET PO SCH (08:09)
[2022-05-09] MEDS: INSULIN LISPRO (NovoLOG) PER UNIT SC SCH ×4 (08:09→20:57)
[2022-05-09] MEDS: PANTOPRAZOLE 40MG TAB (PROTONIX) PO SCH ×2 (08:10→19:50)
[2022-05-09] MEDS: MAGNESIUM OXIDE 400MG TAB (MAG-OX) PO SCH ×3 (08:10→19:51)
[2022-05-09] MEDS: FUROSEMIDE 40 MG TAB PO SCH (08:10)
[2022-05-09] MEDS: DAPAGLIFLOZIN PROPANEDIOL 10MG TABLET (FARXIGA) PO SCH (08:10)
[2022-05-09] MEDS: DOCUSATE SODIUM 100MG CAPSULE PO SCH ×2 (08:11→19:50)
[2022-05-09] MEDS: ATORVASTATIN 20 MG TAB PO SCH (08:11)
[2022-05-09] MEDS: FERROUS SULFATE 325MG TAB PO SCH (08:11)
[2022-05-09] MEDS: RIVAROXABAN 15MG TAB (XARELTO) PO SCH (17:55)
[2022-05-09] MEDS: CYCLOBENZAPRINE 5MG TABLET PO SCH (19:50)
[2022-05-09] MEDS: PRAMIPEXOLE 0.25 MG TAB PO SCH (19:50)
[2022-05-09] MEDS: THIAMINE 100 MG TAB PO SCH (19:50)
[2022-05-09] MEDS: RAMELTEON 8 MG TAB (ROZEREM) PO PRN (19:50)
[2022-05-09] MEDS: VENLAFAXINE **XR** 75MG CAPSULE PO SCH (19:51)
[2022-05-09] MEDS: ACETAMINOPHEN TAB 650MG DOSE (2X325MG) PO PRN (19:52)
[2022-05-09] MEDS: BISOPROLOL FUM 2.5 MG PER 1/2TAB PO SCH (19:53)
[2022-05-10] MEDS: LEVOTHYROXINE 50MCG TABLET (0.05MG) PO SCH (05:30)
[2022-05-10 06:00] VITALS: BP_SYST 144; BP_DIAS 60; BP_DIAS 80
[2022-05-10] MEDS: FERROUS SULFATE 325MG TAB PO SCH (08:18)
[2022-05-10] MEDS: MIRALAX *UNIT DOSE* 17GM PACKET PO SCH (08:18)
[2022-05-10] MEDS: MAGNESIUM OXIDE 400MG TAB (MAG-OX) PO SCH ×3 (08:18→21:26)
[2022-05-10] MEDS: INSULIN LISPRO (NovoLOG) PER UNIT SC SCH ×4 (08:18→21:00)
[2022-05-10] MEDS: DAPAGLIFLOZIN PROPANEDIOL 10MG TABLET (FARXIGA) PO SCH (08:18)
[2022-05-10] MEDS: ATORVASTATIN 20 MG TAB PO SCH (08:19)
[2022-05-10] MEDS: DOCUSATE SODIUM 100MG CAPSULE PO SCH ×2 (08:19→21:26)
[2022-05-10] MEDS: PANTOPRAZOLE 40MG TAB (PROTONIX) PO SCH ×2 (08:19→21:26)
[2022-05-10] MEDS: FUROSEMIDE 40 MG TAB PO SCH (08:19)
[2022-05-10] MEDS: PERCOCET 5MG/325MG TAB PO PRN ×2 (08:45→21:29)
[2022-05-10] MEDS ORDERED: FARX1TAB3 PO (11:53)
[2022-05-10] MEDS ORDERED: ATOR1TAB21 PO (11:53)
[2022-05-10] MEDS ORDERED: XARE15TA PO (17:04)
[2022-05-10] MEDS: RIVAROXABAN 15MG TAB (XARELTO) PO SCH (17:06)
[2022-05-10] MEDS: VENLAFAXINE **XR** 75MG CAPSULE PO SCH (21:25)
[2022-05-10 21:26] VITALS: BP 150/80
[2022-05-10] MEDS: CYCLOBENZAPRINE 5MG TABLET PO SCH (21:26)
[2022-05-10] MEDS: PRAMIPEXOLE 0.25 MG TAB PO SCH (21:26)
[2022-05-10] MEDS: THIAMINE 100 MG TAB PO SCH (21:26)
[2022-05-10] MEDS: BISOPROLOL FUM 2.5 MG PER 1/2TAB PO SCH (21:26)
[2022-05-10] MEDS: RAMELTEON 8 MG TAB (ROZEREM) PO PRN (21:29)
[2022-05-11] MEDS: LEVOTHYROXINE 50MCG TABLET (0.05MG) PO SCH (05:55)
[2022-05-11 06:18] VITALS: BP_SYST 109; BP_SYST 136; BP_DIAS 53; BP_DIAS 77
[2022-05-11] MEDS: DOCUSATE SODIUM 100MG CAPSULE PO SCH (08:09)
[2022-05-11] MEDS: INSULIN LISPRO (NovoLOG) PER UNIT SC SCH (08:09)
[2022-05-11] MEDS: ATORVASTATIN 20 MG TAB PO SCH (08:10)
[2022-05-11] MEDS: FUROSEMIDE 40 MG TAB PO SCH (08:10)
[2022-05-11] MEDS: PANTOPRAZOLE 40MG TAB (PROTONIX) PO SCH (08:10)
[2022-05-11] MEDS: FERROUS SULFATE 325MG TAB PO SCH (08:10)
[2022-05-11] MEDS: DAPAGLIFLOZIN PROPANEDIOL 10MG TABLET (FARXIGA) PO SCH (08:10)
[2022-05-11] MEDS: MAGNESIUM OXIDE 400MG TAB (MAG-OX) PO SCH (08:10)
[2022-05-11] MEDS: MIRALAX *UNIT DOSE* 17GM PACKET PO SCH (08:11)
== END 2022-05-11 08:19 | DRG 291 ==
LOC: M ED 13:38 → M ED INP 16:14 → ENRESERV 04-17 07:00 → M ICU 04-17 09:30 → M PCU 04-18 21:40 → M MSPAV 04-20 23:32
PROVIDERS: ADMIT Internal Medicine; ATTEND Internal Medicine
DX: I11.0 Hypertensive heart disease with heart failure (principal); I50.33 Acute on chronic diastolic (congestive) heart failure; J96.01 Acute respiratory failure with hypoxia; I48.20 Chronic atrial fibrillation, unspecified; E87.1 Hypo-osmolality and hyponatremia; N17.9 Acute kidney failure, unspecified; F03.90 Unspecified dementia, unspecified severity, without behavioral disturbance, psychotic disturbance, mood disturbance, and anxiety; E11.51 Type 2 diabetes mellitus with diabetic peripheral angiopathy without gangrene; J44.9 Chronic obstructive pulmonary disease, unspecified; E78.5 Hyperlipidemia, unspecified; E03.9 Hypothyroidism, unspecified; K76.0 Fatty (change of) liver, not elsewhere classified; D64.9 Anemia, unspecified; K58.9 Irritable bowel syndrome, unspecified; E55.9 Vitamin D deficiency, unspecified; I44.7 Left bundle-branch block, unspecified; K57.90 Diverticulosis of intestine, part unspecified, without perforation or abscess without bleeding; Z66 Do not resuscitate; F17.210 Nicotine dependence, cigarettes, uncomplicated; E11.43 Type 2 diabetes mellitus with diabetic autonomic (poly)neuropathy; E11.65 Type 2 diabetes mellitus with hyperglycemia; E87.5 Hyperkalemia; M19.90 Unspecified osteoarthritis, unspecified site; R00.1 Bradycardia, unspecified; E11.649 Type 2 diabetes mellitus with hypoglycemia without coma; K21.9 Gastro-esophageal reflux disease without esophagitis; K31.84 Gastroparesis; F41.9 Anxiety disorder, unspecified; G47.00 Insomnia, unspecified; Z79.4 Long term (current) use of insulin; Z79.01 Long term (current) use of anticoagulants; Z79.899 Other long term (current) drug therapy; Z95.828 Presence of other vascular implants and grafts; Z79.890 Hormone replacement therapy; Z88.1 Allergy status to other antibiotic agents; Z88.8 Allergy status to other drugs, medicaments and biological substances; Z91.018 Allergy to other foods